=== PATIENT | male | born 1945 | race Caucasian/White ===

== ENCOUNTER 2023-04-12 10:58 | Outpatient (OUT) | payer MEDICARE, OTHER, SELFPAY ==
[2023-04-12 11:37] LABS: Hemoglobin 15.2 g/dL (14.0-18.0)
[2023-04-12 12:01] LABS: Anion Gap 9.6; BUN Creatinine Ratio 23.9; Calcium 9.3 mg/dL (8.5-10.1); Carbon Dioxide 29.6 mmol/L (21.0-32.0); Chloride 101 mmol/L (98-107); Estimated GFR (African America >60 (>=60); Estimated GFR (Non-African Ame >60 (>=60); Glucose 108 mg/dL (74-106); Potassium 4.2 mmol/L (3.5-5.1); Sodium 136 mmol/L (136-145)
== END 2023-04-12 10:59 ==
PROVIDERS: PCP Family Medicine; Visit Provider Internal Medicine Nephrology
DX: N17.9 Acute kidney failure, unspecified (principal)
CPT/HCPCS: 36415; 80048; 85014; 85018

== ENCOUNTER 2023-05-03 14:14 | Outpatient (OUT) | payer MEDICARE, OTHER, SELFPAY ==
--- NOTE | 2023-05-03 13:46 | PM.CN ---
Consult Note: HPI Data of Consult Patient: known to practice within the last 3 years Consult date: 05/03/23 Requesting Physician: BOSTON DUDLEY NP Primary Care Provider: Jorge Ortez MD Consult Narrative Narrative: Patient is here for f/u of low back pain . Pain is low back rdaiting to buttocks. He also has diabetic neuropathy. No increase in pain. Pain 2/10 today. He has decreased his tramadol dose. No new sensorimotor sx or bowel or bladder issues. Medication regimen is controlling pain and assisting patient with ability to perform ADLs. He was only taking his lyrica once daily and was not sure what it was for. We discussed lyrica dosage and indications. He will start taking it BID now. cc:: CC: BOSTON DUDLEY NP Review of Systems ROS Status of ROS 10 or more systems reviewed and unremarkable except as noted in history and below Musculoskeletal Reports: back pain Exam Constitutional Documenting provider has reviewed patient's vital signs: yes Common normals: no apparent distress, oriented x3, healthy appearing, alert and well nourished General appearance: cooperative, comfortable and well developed Nutritional appearance: obese Orientation/consciousness: Yes awake, Yes oriented to person, Yes oriented to place and Yes oriented to time HENMT Common normals: normocephalic and moist oral mucous membranes Respiratory Common normals: normal respiratory effort, no retractions and no use of accessory muscles Effort & inspection: able to speak in complete sentences, symmetric chest movement and abnormal respiratory pattern Back & Pelvis Lumbar spine/lower back: ROM limited and pain with ROM Other: positive facet load muscle strength 4/5 bilat with intact sensation except numbness to bilat feet L>R Assessment and Plan Assessment and Plan (1) Lumbar spondylosis: (2) Lumbar stenosis: Plan take lyrica as prescribe BID f/u 3 months
== END 2023-05-03 14:15 | disposition home or self-care (01) ==
LOC: PM 14:15
PROVIDERS: PCP Family Medicine; Visit Provider Nurse Practitioner
DX: M47.816 Spondylosis without myelopathy or radiculopathy, lumbar region (principal); M48.061 Spinal stenosis, lumbar region without neurogenic claudication; M54.50 Low back pain, unspecified
CPT/HCPCS: G0463

== ENCOUNTER 2023-08-02 13:07 | Outpatient (OUT) | payer MEDICARE, OTHER, SELFPAY ==
--- NOTE | 2023-08-02 13:17 | PM.CN ---
Consult Note: HPI Data of Consult Patient: known to practice within the last 3 years Requesting Physician: BOSTON DUDLEY NP Primary Care Provider: Jorge Ortez MD Consult Narrative Reason for consult: f/u Narrative: Eleuterio Cabral a pleasant 77 year old male presents for evaluation and management of chronic pain in low back buttocks and groin. Today rating pain 3-4/10. Patient has been doing well on tramadol and lyrica, without side effects. cc:: CC: BOSTON DUDLEY NP Review of Systems ROS Status of ROS 10 or more systems reviewed and unremarkable except as noted in history and below Musculoskeletal Reports: back pain and other Meds Home Medications and Allergies Home Medications Medication Instructions Recorded Confirmed Type furosemide 40 mg tablet 40 mg PO DAILY 05/03/23 05/03/23 History levothyroxine 150 mcg capsule 150 mcg PO DAILY 05/03/23 05/03/23 History pregabalin 75 mg capsule (Lyrica) 75 mg PO BID 05/03/23 05/03/23 History rivaroxaban 20 mg tablet (Xarelto) 20 mg PO DAILY 05/03/23 05/03/23 History spironolactone 25 mg tablet 25 mg PO BID 05/03/23 05/03/23 History tramadol 50 mg tablet 50 mg PO BID 05/03/23 05/03/23 History Allergies Allergy/AdvReac Type Severity Reaction Status Date / Time No Known Drug Allergies Allergy Verified 05/03/23 15:29 Exam Constitutional Documenting provider has reviewed patient's vital signs: yes Common normals: no apparent distress, oriented x3, healthy appearing, alert and well nourished General appearance: cooperative Nutritional appearance: obese HENMT Common normals: normocephalic, hearing grossly normal bilaterally and moist oral mucous membranes Head and scalp: normocephalic Eye Common normals: PERRL Pupil: PERRL Neck & C-Spine Common normals: full ROM General: normal visual inspection Chest Common normals: inspection of chest normal Respiratory Common normals: normal respiratory effort, no retractions and no use of accessory muscles Back & Pelvis Lumbar spine/lower back: ROM limited and pain with ROM Neuro Common normals: oriented x3, CN's II-XII intact bilaterally, moves all extremities, no focal motor deficits, no sensory deficits noted and deep tendon reflexes 2+ bilaterally Sensorium/orientation: alert Gait (neuro): antalgic and assistive device used walker Motor exam: strength 5/5 throughout and no movement abnormalities noted Psych Common normals: mental status grossly normal, thought process normal, cooperative, affect normal, speech normal and activity/motor behavior normal Speech: normal speech Thought process: normal thought process Results Additional Findings Additional findings: I have checked an [place] report on this patient today and there are no aberrancies noted in the prescribing history.?? A drug screen was completed and reviewed within the last year, and if there has not been a drug screen completed we ordered one today to monitor higher risk, state monitored pain medication use. As part of providing excellent, safe, comprehensive care, the following was completed at our patient's visit: 1. A medication reconciliation and review to ensure accurate knowledge of current/active medications, including asking our patients to inform us about any [id number] medications or herbal remedies/nutritional supplements/alternative remedies. 2. A review to specifically ensure our patients have had annual screening for: elevated body mass index (BMI), tobacco use, screening for depression, and screening for unhealthy alcohol use. When screening is concerning, patients are provided with education and the specific recommendation to discuss the concerning health issue and treatment options with their primary care provider. Assessment and Plan Assessment and Plan (1) Chronic, continuous use of opioids: Assessment and Plan: I feel these medications are improving the patient's quality of life and allow them to tolerate activities of daily living as well as participate in recreational activity.? The patient does not report intolerable side effects. The patient is NOT opioid naive and non-pharmacologic and non-opioid treatment has failed to significantly relieve the patient's pain and improve functionality. The patient has a diagnosis that is related to a somatic or visceral pain etiology. ? ?? I reviewed with the patient the potential risks and side effects with the use of? opioid medications including but not limited to respiratory depression,? sedation, and even . I verified the patient has access to naloxone should? these effects occur. I advised the patient to avoid the use of any other? sedation substances including alcohol, THC, and benzodiazepines while? taking opioid medications due to the risk of compounding side effects and? detrimental outcomes. I reviewed the SEAL DELIVERY VEHICLE OFFICER, pain treatment agreement, urine? drug screen, and opioid start talking forms. The patient was advised to let? their family know they had Naloxone in case they would need to administer? the medication.? ?? (2) Lumbar spondylosis: (3) Lumbar stenosis: (4) Obesity: Assessment and Plan: The patient was counseled that proper dietary changes and consistent participation in a home exercise plan can lead to weight loss. Weight loss can help to improve functionality in patients with chronic pain.? Plan continue current medications, tolerating well without side effects continues to have functional improvement and pain relief as a result of injection therapy and medication management f/u 3 months
== END 2023-08-02 13:08 | disposition home or self-care (01) ==
PROVIDERS: PCP Family Medicine; Visit Provider Nurse Practitioner
DX: M47.816 Spondylosis without myelopathy or radiculopathy, lumbar region (principal); M48.061 Spinal stenosis, lumbar region without neurogenic claudication; E66.9 Obesity, unspecified; Z79.899 Other long term (current) drug therapy
CPT/HCPCS: G0463

== ENCOUNTER 2023-11-01 12:55 | Outpatient (OUT) | payer MEDICARE, OTHER, SELFPAY ==
--- NOTE | 2023-11-01 13:13 | PM.CN ---
Consult Note: HPI Data of Consult Patient: known to practice within the last 3 years Requesting Physician: Althea Haeny NP Primary Care Provider: Jorge Ortez MD Consult Narrative Reason for consult: f/u Narrative: Eleuterio Cabral a pleasant 77 year old male presents for evaluation and management of chronic pain in low back buttocks and groin. Today rating pain 2/10. Patient has been doing well on tramadol and lyrica, without side effects. cc:: CC: Althea Haney NP Review of Systems ROS Status of ROS 10 or more systems reviewed and unremarkable except as noted in history and below Musculoskeletal Reports: back pain and extremity pain Meds Home Medications and Allergies Home Medications Medication Instructions Recorded Confirmed Type furosemide 40 mg tablet 40 mg PO DAILY 05/03/23 05/03/23 History levothyroxine 150 mcg capsule 150 mcg PO DAILY 05/03/23 05/03/23 History pregabalin 75 mg capsule (Lyrica) 75 mg PO BID 05/03/23 05/03/23 History rivaroxaban 20 mg tablet (Xarelto) 20 mg PO DAILY 05/03/23 05/03/23 History spironolactone 25 mg tablet 25 mg PO BID 05/03/23 05/03/23 History tramadol 50 mg tablet 50 mg PO BID 05/03/23 05/03/23 History tramadol 50 mg tablet 100 mg (2 x 50 mg) PO BID PRN pain 08/27/23 Rx #120 tabs Allergies Allergy/AdvReac Type Severity Reaction Status Date / Time No Known Drug Allergies Allergy Verified 05/03/23 15:29 Exam Constitutional Documenting provider has reviewed patient's vital signs: yes Common normals: no apparent distress, oriented x3, healthy appearing, alert and well nourished General appearance: cooperative Nutritional appearance: obese HENMT Common normals: normocephalic, hearing grossly normal bilaterally and moist oral mucous membranes Head and scalp: normocephalic Eye Common normals: PERRL Pupil: PERRL Neck & C-Spine Common normals: full ROM General: normal visual inspection Chest Common normals: inspection of chest normal Respiratory Common normals: normal respiratory effort, no retractions and no use of accessory muscles Back & Pelvis Lumbar spine/lower back: ROM limited and pain with ROM Extremity Common normals: normal to inspection Neuro Common normals: oriented x3, CN's II-XII intact bilaterally, moves all extremities, no focal motor deficits, no sensory deficits noted and deep tendon reflexes 2+ bilaterally Sensorium/orientation: alert Gait (neuro): antalgic and assistive device used walker Motor exam: no movement abnormalities noted and strength abnormal (4/5 in LLE) Psych Common normals: mental status grossly normal, thought process normal, cooperative, affect normal, speech normal and activity/motor behavior normal Speech: normal speech Thought process: normal thought process Results Additional Findings Additional findings: I have checked an [facility] report on this patient today and there are no aberrancies noted in the prescribing history.?? A drug screen was completed and reviewed within the last year, and if there has not been a drug screen completed we ordered one today to monitor higher risk, state monitored pain medication use. As part of providing excellent, safe, comprehensive care, the following was completed at our patient's visit: 1. A medication reconciliation and review to ensure accurate knowledge of current/active medications, including asking our patients to inform us about any [id number] medications or herbal remedies/nutritional supplements/alternative remedies. 2. A review to specifically ensure our patients have had annual screening for: elevated body mass index (BMI), tobacco use, screening for depression, and screening for unhealthy alcohol use. When screening is concerning, patients are provided with education and the specific recommendation to discuss the concerning health issue and treatment options with their primary care provider. Assessment and Plan Assessment and Plan (1) Chronic, continuous use of opioids: Assessment and Plan: I feel these medications are improving the patient's quality of life and allow them to tolerate activities of daily living as well as participate in recreational activity.? The patient does not report intolerable side effects. The patient is NOT opioid naive and non-pharmacologic and non-opioid treatment has failed to significantly relieve the patient's pain and improve functionality. The patient has a diagnosis that is related to a somatic or visceral pain etiology. ? ?? I reviewed with the patient the potential risks and side effects with the use of? opioid medications including but not limited to respiratory depression,? sedation, and even . I verified the patient has access to naloxone should? these effects occur. I advised the patient to avoid the use of any other? sedation substances including alcohol, THC, and benzodiazepines while? taking opioid medications due to the risk of compounding side effects and? detrimental outcomes. I reviewed the BROADCAST CORRESPONDENT, pain treatment agreement, urine? drug screen, and opioid start talking forms. The patient was advised to let? their family know they had Naloxone in case they would need to administer? the medication.? ?? (2) Lumbar spondylosis: (3) Lumbar stenosis: (4) Obesity: Assessment and Plan: The patient was counseled that proper dietary changes and consistent participation in a home exercise plan can lead to weight loss. Weight loss can help to improve functionality in patients with chronic pain.? Plan continue current medications, tolerating well without side effects continues to have functional improvement and pain relief as a result of injection therapy and medication management f/u 3 months, sooner if needed
== END 2023-11-01 12:56 | disposition home or self-care (01) ==
LOC: PM 12:55
PROVIDERS: PCP Family Medicine; Visit Provider Nurse Practitioner
DX: Z79.891 Long term (current) use of opiate analgesic (principal); M47.816 Spondylosis without myelopathy or radiculopathy, lumbar region; M48.061 Spinal stenosis, lumbar region without neurogenic claudication; E66.9 Obesity, unspecified
CPT/HCPCS: G0463

== ENCOUNTER 2023-11-26 14:40 | Outpatient (OUT) | payer MEDICARE, OTHER, SELFPAY ==
--- OUTSIDE RECORDS SUMMARY | 2023-11-26 14:46 | XMS_ITS | CCD ---
Author Name Unknown Address [address] [place] [address] Organization [facility] Care Team Providers Care Statistical Machine Servicer Name Role Phone PHYSICIAN, DEFAULT Unavailable Unavailable PHYSICIAN, DEFAULT Unavailable Unavailable Jorge Camejo Unavailable Unavailable Unavailable Oscar Walters Unavailable Patel Ugarte Admitting Unavailable Eleuterio Napier Attending Unavailab Jorge Casillas Primary Care Unavailable Josiane Syeks Consulting Unavailable Beth Treviño Consulting Unavailable Rojas Rivas Consulting Unavailable Jorge Portillo Consulting Unavail able Lauren Cortez Consulting Unavailable Ranjit Mckeon Consulting Unavailab Yuliya Valdes Consulting Unavailable Verena Morton Consulting Unavailable Ana Paula Lee Consulting Unavailab Rody Hansen Consulting Unavailable Oscar Walters Consulting Unavailable Gina Cherry Consulting Unavailable Bryant Cooper Consulting Unavailable Phil Sutton Consulting Unavailable Wolfgang Mclean Consulting Unavailable Sekou Green Consulting Unavailable Unavailable Unavailable Jorge Treviño Attending Unavailable Dr. Jorge Camejo Primary Care Adamaris Camejo, Dr. Jorge Hurtado Primary Care Jorge Conner Referring Unavailable Jorge Treviño Attending Unavailable Neelima, Dr. Jorge Hurtado Primary Care Jorge Conner Referring Unavailable Jorge Treviño Attending Unavailable Neelima, Dr. Jorge Hurtado Primary Care Jorge Conner Attending Unavailable Neelima, Dr. Jorge Hurtado Primary Care Unavai lable NADLIZBETH, DR JORGE Masters Primary Care Unavailable LAKSHMIPATHY ., NARENDRANATH Admitting Sydney vailable LAKSHMIPATHY ., NARENDRANATH Consulting Sydney vailable LAKSHMIPATHY ., NARSHIRA Attending Sydney vailable NADLIZBETH, DR JORGE Masters Primary Care Unavailable MCLEAN ., DR HUNTER Gagnon Attending Unavailable MCLEAN ., DR HUNTER Gagnon Admitting Unavailable SANCHEZ ., DOMO Consulting Unavailable LAKSHMIPATHY ., NARSHIRA Admitting Sydney vailable LAKSHMIPATHY ., JAVIER Attending Sydney vailable NADLIZBETH, DR JORGE Masters Primary Care Unavailable MCLEAN ., DR HUNTER Gagnon Attending Unavailable SANCHEZ ., DOMO Consulting Unavailable MCLEAN ., DR HUNTER Gagnon Admitting Unavailable NADERER, DR JORGE Masters Primary Care Unavailable NADERER, DR JORGE Masters Primary Care Unavailable NADERER, DR JORGE Masters Attending Unavailable SPANGLER, DR ANETTE Torrez Consulting Unavailable NADERER, DR JORGE Masters Admitting Unavailable NADERER, DR JORGE Masters Consulting Unavailable NADERER, DR JORGE Masters Primary Care Unavailable NADERER, DR JORGE Masters Consulting Unavailable NADERER, DR JORGE Masters Attending Unavailable NADERER, DR JORGE Masters Admitting Unavailable NADERER, DR JORGE Masters Primary Care Unavailable ELASHI, DR LUU Consulting Unavailable ELASHI, DR LUU Attending Unavailable ELASHI, DR LUU Admitting Unavailable KAMILA, DR JORGE Gagnon Consulting Unavailabl e KAMILA, DR JORGE Gagnon Attending Unavailabl e NADERER, DR JORGE Masters Primary Care Unavailable KAMILA, DR JORGE Gagnon Admitting Unavailabl e NADERER, DR JORGE Masters Primary Care Unavailable NADERER, DR JOGRE Masters Consulting Unavailable NADERER, DR JORGE Masters Attending Unavailable NADERER, DR JORGE Masters Admitting Unavailable REINECK, DR LISA Badillo Admitting Unavailabl e REINECK, DR LISA Badillo Consulting Unavailabl e NADERER, DR JORGE Masters Primary Care Unavailable REINECK, DR LISA Badillo Attending Unavailabl e ZIEBER, DR LAYO Davis Consulting Unavailable PAY ., DR BENNETT Consulting Unavailable TROTTI, TONY Consulting Unavailable MCLEAN ., DR HUNTER Gagnon Admitting Unavailable MCLEAN ., DR HUNTER Gagnon Attending Unavailable SANCHEZ ., DOMO Consulting Unavailable NADERER, DR JORGE Masters Primary Care Unavailable MCLEAN ., DR HUNTER Gagnon Admitting Unavailable MCLEAN ., DR HUNTER Gagnon Attending Unavailable SANCHEZ ., DOMO Consulting Unavailable DR JORGE CAMEJO Primary Care Unavailable JR. GRAHAM, MARIE Rodriguez Attending Adriel STEVENSON JR., MARIE Rodriguez Attending Adriel proctor Medications Current Medications Medication Drug Class(es) Dates Sig (Normalized) Sig (Original) furosemide 40 mg oral tablet (6 sources) Loop Diuretic take 1 tablet by mouth every twenty-four hours Furosemide 40 MG 1 tablet Orally Once a day Active levothyroxine sodium 0.15 mg oral tablet (6 sources) l-Thyroxine take 1 tablet by mouth once daily in the morning Levothyroxine Sodium 150 MCG 1 tablet in the morning on an empty stomach Orally Once a day Active take 1 tablet by mouth once jesenia y Synthroid 150 MCG Oral Tablet TAKE 1 TABLET DAILY. Quantity: 0 Refills: 0 Ordered: 12-Jul-2022 DO Active rivaroxaban 20 mg oral tablet (6 sources) Factor Xa Inhibitor take 1 tablet by mouth every twenty-four hours Xarelto 20 MG 1 tablet with food Orally Once a day Active traMADol hydrochloride 50 mg oral tablet (6 sources) Opioid Agonist take 2 tablets by mouth every twelve hours traMADol HCl 50 MG 2 tablet as needed Orally TWICE A DAY Active Completed/Discontinued Medications Medication Drug Class(es) Dates Sig (Normalized) Sig (Original) [id number] 200 actuat albuterol 0.09 mg/actuat metered dose inhaler (1 source) beta2-Adrenergic Agonist Start: 12-08-2022 take 2 puff(s) by mouth every four hours as needed Albuterol Sulfate HFA 108 (90 Base) MCG/ACT Inhalation Aerosol Solution TAKE 2 PUFFS BY MOUTH EVERY 4 HOURS NEEDED Quantity: 18 Refills: 0 Ordered: 08-Dec-2022 DO Start : 08-Dec-2022 Active pregabalin 75 mg oral capsule (5 sources) Start: 11-01-2022 take 1 capsule by mouth twice daily Pregabalin 75 MG Oral Capsule TAKE 1 CAPSULE BY MOUTH TWICE A DAY Quantity: 60 Refills: 0 Ordered: 03-Dec-2022 DO Start : 01-Nov-2022 Active spironolactone 25 mg oral tablet (5 sources) Aldosterone Antagonist Start: 11-27-2022 take 1 tablet by mouth once daily Spironolactone 25 MG Oral Tablet TAKE 1 TABLET DAILY. Quantity: 30 Refills: 0 Ordered: 27-Nov-2022 DO Start : 27-Nov-2022 Active Start: 08-31-2022 take 1 tablet by anisa th every twenty-four hours Spironolactone 25 MG 1 tablet Orally Once a day for 90 day(s) Aug, Active Xarelto Starter Pack TBPK (1 source) Xarelto Starter Pack TBPK as directed Quantity: 0 Refills: 0 Ordered: 12-Jul-2022 DO Active Problems Active Problems Problem Classification Problem Date Documented Da te Episodic/Chronic Chronic kidney disease (7 sources) Chronic kidney disease; Translations: [Chronic kidney disease, unspecified] Onset: 07-17-2022 Chronic Chronic kidney disease (6 sources) Chronic kidney disease; Translations: [CHRONIC KIDNEY DISEASE STAGE 3B] Onset: 10-03-2022 Congestive heart failure; nonhypertensive (8 sources) Congestive heart failure; Translations: [Heart failure, unspecified] Onset: 06-23-2022 Chronic Disorders of lipid metabolism (1 source) Hyperlipidemia, unspecified; Translations: [HYPERLIPIDEMIA UNSPECIFIED] Onset: 04-12-2022 Chronic Essential hypertension (5 sources) Essential (primary) hypertension; Translations: [Essential (primary) hypertension] Onset: 04-05-2022 Chronic Hypertension with complications and secondary hypertension (7 sources) Malignant hypertensive chronic kidney disease; Translations: [Hypertensive chronic kidney disease with stage 1 through stage 4 chronic kidney disease, or unspecified chronic kidney disease] Onset: 06-26-2022 Chronic Other and ill-defined heart disease (1 source) Cardiomegaly; Translations: [Cardiomegaly] Onset: 06-23-2022 Chronic Other infections; including parasitic (2 sources) Personal history of other infectious and parasitic diseases; Translations: [History of COVID-19] Episodic Other lower respiratory disease (4 sources) Shortness of breath; Translations: [SHORTNESS OF BREATH] Onset: 12-07-2022 Episodic Other nervous system disorders (1 source) Other chronic pain; Translations: [OTHER CHRONIC PAIN] Onset: 01-28-2023 Chronic Other nervous system disorders (1 source) Other specified mononeuropathies; Translations: [OTHER SPECIFIED MONONEUROPATHIES] Onset: 10-10-2022 Chronic Other nutritional; endocrine; and metabolic disorders (2 sources) Body mass index 40+ - severely obese; Translations: [Morbid obesity] Chronic Other nutritional; endocrine; and metabolic disorders (2 sources) Obesity, unspecified; Translations: [Obesity, unspecified] Onset: 06-23-2022 Chronic Other nutritional; endocrine; and metabolic disorders (1 source) Morbid (severe) obesity due to excess calories; Translations: [MORBID SEVERE OBES D/T EXCESS LIVAN] Onset: 07-17-2022 Chronic Other nutritional; endocrine; and metabolic disorders (1 source) Body mass index (BMI) 45.0-49.9, adult; Translations: [BODY MASS INDEX BMI 45.0-49.9 ADULT] Onset: 06-26-2022 Chronic Residual codes; unclassified (1 source) Sleep apnea, unspecified; Translations: [SLEEP APNEA UNSPECIFIED] Onset: 06-26-2022 Chronic Residual codes; unclassified (1 source) Edema; Translations: [Edema] Episodic Screening and history of mental health and substance abuse codes (1 source) Ex-smoker; Translations: [Personal history of tobacco use] Episodic Spondylosis; intervertebral disc disorders; other back problems (10 sources) Spinal stenosis, lumbar region without neurogenic claudication; Translations: [Intervertebral disc disorders with radiculopathy, lumbar region] Onset: 02-16-2022 Episodic Thyroid disorders (2 sources) Hypothyroidism, unspecified; Translations: [Hypothyroidism, unspecified] Onset: 06-23-2022 Chronic Unclassified (4 sources) LOW BACK PAIN, UNSPECIFIED; Translations: [LOW BACK PAIN, UNSPECIFIED] Onset: 10-10-2022 Unclassified (1 source) PERSONAL HISTORY OF COVID-19; Translations: [PERSONAL HISTORY OF COVID-19] Onset: 07-17-2022 Unclassified (1 source) POST COVID-19 CONDITION UNSPECIFIED; Translations: [POST COVID-19 CONDITION UNSPECIFIED] Onset: 06-26-2022 Unclassified (1 source) CONTACT W/AND (SUSP) EXPOS COVID-19; Translations: [CONTACT W/AND (SUSP) EXPOS COVID-19] Onset: 06-26-2022 Viral infection (1 source) COVID-19; Translations: [COVID-19] Onset: 06-23-2022 Past or Other Problems Problem Classification Problem Date Documented Da te Episodic/Chronic Abdominal pain (4 sources) Right lower quadrant pain; Translations: [RIGHT LOWER QUADRANT PAIN] Onset: 02-24-2022 Episodic Acute and unspecified renal failure (3 sources) Acute kidney failure, unspecified; Translations: [Acute kidney failure, unspecified] Onset: 06-23-2022 Episodic Diabetes mellitus without complication (1 source) Prediabetes; Translations: [PREDIABETES] Onset: 04-12-2022 Episodic Other aftercare (1 source) Other longterm (current) drug therapy; Translations: [OTH NURSING HOME CURRENT DRUG THERAPY] Onset: 06-26-2022 Episodic Other hematologic conditions (1 source) Other specified abnormalities of plasma proteins; Translations: [Other specified abnormalities of plasma proteins] Onset: 06-23-2022 Episodic Other screening for suspected conditions (not mental disorders or infectious disease) (2 sources) Other specified abnormal findings of blood chemistry; Translations: [Encounter for screening for malignant neoplasm of prostate] Onset: 04-12-2022 Episodic Phlebitis; thrombophlebitis and thromboembolism (8 sources) Deep venous thrombosis; Translations: [Acute venous embolism and thrombosis of unspecified deep vessels of lower extremity] Onset: 06-23-2022 Episodic Pulmonary heart disease (9 sources) Pulmonary embolism; Translations: [Other pulmonary embolism and infarction] Onset: 06-23-2022 Episodic Unclassified (1 source) LOW BACK PAIN, UNSPECIFIED; Translations: [LOW BACK PAIN, UNSPECIFIED] Onset: 01-25-2023 Results Test Name Value Interpretation Reference Range Facility Office Visit (Cardiology)on 01-04-2023 Follow-up visit Diagnoses/Problems Assessed DVT (deep venous thrombosis) (453.40) (I82.409) Pulmonary embolism (415.19) (I26.99) History of COVID-19 (V12.09) (Z86.16) Chronic kidney disease (585.9) (N18.9) Former smoker (V15.82) (Z87.891) Morbid obesity with BMI of 45.0-49.9, adult (278.01,V85.42) (E66.01,Z68.42) Edema (782.3) (R60.9) Orders SocHx: Former smoker Tobacco Use Screening; Status:Complete; Done: 04Jan2023 Patient Instructions Please bring all medicines, vitamins, and herbal supplements with you when you come to the office. Prescriptions will not be filled unless you are compliant with your follow up appointments or have a follow up appointment scheduled as per instruction of your physician. Refills should be requested at the time of your visit. Follow up in 1 year. Chief Complaint ELEUTERIO CABRAL is being seen for a 6 month follow-up of. 77-year-old gentleman who returns for 6-month follow-up, continues on Antithrombin therapies for treatment of DVT and suspected pulmonary embolism following COVID illness in June 2022. He underwent perfusion scan he did not undergo any CT angiography due to chronic renal insufficiency. Last office visit in July 2022, in addition to his blood work and hospitalization notes and imaging reports are all reviewed. Notably he did not proceed with CT angiography last year after my office visit. He remains sedentary, ambulatory by means of rollator, morbidly obese currently 355 pounds with a BMI of 49.5, hemodynamically stable. Today's exam reveals mild 1-2+ ankle edema only. He does have chronic renal failure and follows with Dr. Escobedo. He remains on Xarelto therapy with no recurrent thromboembolic and no bleeding events or recurrent hospitalizations Long discussion in regards to duration of therapy for DVT/suspected PE and I have recommended a minimum of 1 year of DOAC therapy, consideration for lifelong therapy given his comorbidities of sedentary lifestyle, morbid obesity however he may want to corroborate this with second opinion with hematology/oncology or even vascular surgery. But at least he should have a years worth of DOAC. He can otherwise follow-up in 1 year Surgical History Problems History of Colonoscopy Resolved Date: 05 Nov 2016 History of Knee arthroscopy History of Thrombectomy Current Meds Medication NameInstruction Albuterol Sulfate HFA 108 (90 Base) MCG/ACT Inhalation Aerosol SolutionTAKE 2 PUFFS BY MOUTH EVERY 4 HOURS NEEDED Furosemide 40 MG Oral TabletTAKE 1 TABLET DAILY. Pregabalin 75 MG Oral CapsuleTAKE 1 CAPSULE BY MOUTH TWICE A DAY Spironolactone 25 MG Oral TabletTAKE 1 TABLET DAILY. Synthroid 150 MCG Oral TabletTAKE 1 TABLET DAILY. traMADol HCl - 50 MG Oral TabletTAKE 2 TABLET Twice daily Xarelto 20 MG Oral TabletTake 1 tablet daily Allergies Medication No Known Drug Allergies Recorded By: Nancy Sin; 07/12/2022 11:35:27 AM Social History Problems Denied: History of Caffeine use Former smoker (V15.82) (Z87.891) No alcohol use No illicit drug use Review of Systems Constitutional: not feeling tired. Cardiovascular: no intermittent leg claudication and as noted in HPI. Respiratory: no cough and no shortness of breath. Gastrointestinal: no change in bowel habits and no blood in stools. Integumentary: no skin rashes. Neurological: no seizures and no frequent falls. All other systems have been reviewed and are negative for complaint. Vitals Vital Signs Recorded: 04Jan2023 11:33AM Heart Rate64, L Radial Hatedwof364, LUE, Sitting Umlhhygcq75, LUE, Sitting Height5 ft 11 in Kzjibl524 lb BMI Ldctjlfdgv31.51 kg/m2 BSA Calculated2.69 Tobacco Useb) No PHQ-2 #1. Over the last 2 weeks have you felt down, depressed or hopeless? (If yes, answer PHQ-9 below)No PHQ-2 #2. Over the last 2 weeks have you felt little interest or pleasure in doing things? (If yes, answer PHQ-9 below)No Falls Screening (Age 18+)a) No falls within the last year Physical Exam Constitutional: alert and in no acute distress. Neck: neck is supple, symmetric, trachea midline, no masses and no thyromegaly . Pulmonary: no increased work of breathing or signs of respiratory distress and lungs clear to auscultation. Cardiovascular: carotid pulses 2+ bilaterally with no bruit , JVP was normal, no thrills , regular rhythm, normal S1 and S2, no murmurs , pedal pulses 2+ bilaterally and bilateral ankle 1+ pitting edema. Abdomen: abdomen non-tender, no masses and no hepatomegaly . Skin: skin warm and dry, normal skin turgor . Psychiatric judgment and insight is normal and oriented to person, place and time . Signatures Electronically signed by : Jorge Treviño DO; Jan 04 2023 12:41PM EST (Author) Normal [employer] Tobacco Screening.on 023 Adult depression screening assessment No [facility] [facility] DO Work Phone: Fall risk assessment a) No falls within the last year [facility] [facility] DO Work Phone: Tobacco use status CP b) [facility] [facility] Work Phone: FREE T3on 12-07-2022 FREE T3 2.63 pg/mlL Normal 2.18-3.98 [facility] Comment on above: Performed By: #### T SH, FT3 #### [facility] [address] [place] [address] Dr. Cole Echeverria FREE T4on 12-07-2022 Free T4 [Mass/Vol] 1.44 ng/dL Normal 0.76-1.46 [facility] Comment on above: Performed By: #### T SH, FT3 #### [facility] [address] [place] [address] Dr. Cole Echeverria HEMOGLOBINon 12-07-2022 Hemoglobin (Bld) [Mass/Vol] 14.0 g/dL Normal 14.0-18.0 [facility] Comment on above: Performed By: #### F T4, PSASC #### [facility] [address] [place] [address] Dr. Cole Echeverria TSHon 12-07-2022 TSH 0.710 uIU/mL Normal 0.358-3.740 [facility] Comment on above: Performed By: #### T SH, FT3 #### [facility] [address] [place] [address] Dr. Cole Echeverria PTH INTACTon 10-04-2022 PTH, Intact 13 pg/mL Critically low 15-65 [facility] Comment on above: Performed By: #### P THINT #### [facility] [address] [place] [address] Dr. Cole Echeverria HEMOGRAM AND PLATELon 2021 Hematocrit (Bld) [Volume fraction] 44.9 % Normal 42.0-54.0 [facility] Comment on above: Performed By: #### F T4, PSASC #### [facility] [address] [place] [address] Dr. Cole Echeverria Hemoglobin (Bld) [Mass/Vol] 14.4 g/dL Normal 14.0-18.0 [facility] Comment on above: Performed By: #### F T4, PSASC #### [facility] [address] [address] [address] Cole Echeverria MCH (RBC) [Entitic mass] 27.0 pg Normal 25.9-34.[address] [facility] Comment on above: Performed By: #### F T4, PSASC #### [facility] [address] [place] [address] Dr. Cole Echeverria MCHC (RBC) [Mass/Vol] 32.1 g/dL Normal 29.9-35.[address] [facility] Comment on above: Performed By: #### F T4, PSASC #### [facility] [address] [place] [address] Dr. Cole Echeverria MCV (RBC) [Entitic vol] 84.1 fL Normal 80.0-94.0 [facility] Comment on above: Performed By: #### F T4, PSASC #### [facility] [address] [place] [address] Dr. Cole Echeverria PLT 330 103/ul Normal 150-[address] [facility] Comment on above: Performed By: #### F T4, PSASC #### [facility] [address] [place] [address] Dr. Cole Echeverria RBC 5.34 106/ul Normal 4.70-6.[address] [facility] Comment on above: Performed By: #### F T4, PSASC #### [facility] [address] [place] [address] Dr. Cole Echeverria WBC 8.7 103/ul Normal 4.0-11.[address] [facility] Comment on above: Performed By: #### F T4, PSASC #### [facility] [address] [place] [address] Dr. Cole Echeverria PHOSPHORUSon 10-03-2022 Phosphate [Mass/Vol] 3.8 mg/dL Normal 2.6-4.[address] [facility] Comment on above: Performed By: #### T SH, FT3 #### [facility] [address] [place] [address] Dr. Cole Echeverria PROF 14(COMP METB)on 022 Albumin [Mass/Vol] 3.1 g/dL Critically low 3.4-5.[address] [facility] Comment on above: Performed By: #### T SH, FT3 #### [facility] [address] [place] [address] Dr. Cole Echeverria Albumin/Globulin [Mass ratio] 0.6 {ratio} Normal [facility] Comment on above: Performed By: #### T SH, FT3 #### [facility] [address] [place] [address] Dr. Cole Echeverria ALP [Catalytic activity/Vol] 94 U/L Normal 46-116 [facility] Comment on above: Performed By: #### T SH, FT3 #### [facility] [address] [place] [address] Dr. Cole Echeverria ALT [Catalytic activity/Vol] 11 U/L Critically low 16-63 [facility] Comment on above: Performed By: #### T SOPHIE, FT3 #### [facility] [address] [place] [address] Dr. Cole Echeverria Anion gap [Moles/Vol] 9.3 mmol/L Normal [facility] Comment on above: Performed By: #### T SOPHIE, FT3 #### [facility] [address] [place] [address] Dr. Cole Echeverria AST [Catalytic activity/Vol] 13 U/L Critically low 15-37 [facility] Comment on above: Performed By: #### T SH, FT3 #### [facility] [address] [place] [address] Dr. Cole Echeverria Bilirubin [Mass/Vol] 0.5 mg/dL Normal 0.2-1.0 [facility] Comment on above: Performed By: #### T SH, FT3 #### [facility] [address] [place] [address] Dr. Cole Echeverria Calcium [Mass/Vol] 9.6 mg/dL Normal 8.5-10.1 [facility] Comment on above: Performed By: #### T SH, FT3 #### [facility] [address] [place] [address] Dr. Cole Ecehverria Chloride [Moles/Vol] 101 mmol/L Normal 98-107 [facility] Comment on above: Performed By: #### T SH, FT3 #### [facility] [address] [place] [address] Dr. Cole Echeverria CO2 [Moles/Vol] 31.6 mmol/L Normal 21.0-32.0 [facility] Comment on above: Performed By: #### T SH, FT3 #### [facility] [address] [place] [address] Dr. Cole Echeverria Creatinine [Mass/Vol] 1.13 mg/dL Normal 0.70-1.30 [facility] Comment on above: Performed By: #### T SH, FT3 #### [facility] [address] [place] [address] Dr. Cole Echeverria EGFR-AF MONEGASQUE >60 Normal >=60 [facility] Comment on above: Performed By: #### T SH, FT3 #### [facility] [address] [place] [address] Dr. Cole Echeverria EGFR-NON AF MONEGASQUE >60 Normal >=60 [facility] Comment on above: Performed By: #### T SH, FT3 #### [facility] [address] [place] [address] Dr. Cole Echeverria Globulin (S) [Mass/Vol] 5.0 g/dL Normal [facility] Comment on above: Performed By: #### T SH, FT3 #### [facility] [address] [place] [address] Dr. Cole Echeverria Glucose [Mass/Vol] 104 mg/dL Normal 74-106 [facility] Comment on above: Performed By: #### T SH, FT3 #### [facility] [address] [place] [address] Dr. Cole Echeverria Potassium [Moles/Vol] 3.9 mmol/L Normal 3.5-5.1 [facility] Comment on above: Performed By: #### T SH, FT3 #### [facility] [address] [place] [address] Dr. Cole Echeverria Protein [Mass/Vol] 8.1 g/dL Normal 6.4-8.2 [facility] Comment on above: Performed By: #### T SOPHIE, FT3 #### [facility] [address] [place] [address] Dr. Cole Echeverria Sodium [Moles/Vol] 138 mmol/L Normal 136-145 [facility] Comment on above: Performed By: #### T SOPHIE, FT3 #### [facility] [address] [place] [address] Dr. Cole Echeverria Urea nitrogen [Mass/Vol] 21.0 mg/dL Critically high 7.0-18.[address] [facility] Comment on above: Performed By: #### T SOPHIE, FT3 #### [facility] [address] [place] [address] Dr. Cole Echeverria Urea nitrogen/Creatinine [Mass ratio] 18.6 mg/mg Normal [facility] Comment on above: Performed By: #### T SOPHIE, FT3 #### [facility] [address] [place] [address] Dr. Cole Echeverria URINE T PROTEIN CREAT RATIOo n 10-03-2022 Protein (U) [Mass/Vol] 7.0 mg/dL Normal <=12.0 [facility] Comment on above: Performed By: #### T SH, FT3 #### [facility] [address] [place] [address] Dr. Cole Echeverria UR PROT CREAT RAT 0.11 Normal [facility] Comment on above: Performed By: #### T SOPHIE, FT3 #### [facility] [address] [place] [address] Dr. Cole Echeverria URINE CREAT 62.81 mg/dL Normal 20.00-300.00 [facility] Comment on above: Performed By: #### T SOPHIE, FT3 #### [facility] [address] [place] [address] Dr. Cole Echeverria VITAMIN D 25 OHon 10-03-2022 VIT D 25-OH 52.1 ng/mL Normal [facility] Comment on above: Performed By: #### T SOPHIE, FT3 #### [facility] [address] [place] [address] Dr. Cole Echeverria VIT D RANGES SEE BELOW Normal [facility] Comment on above: Result Comment: <20 ng/mL Vit D deficient 20 - <30 ng/mL Vit D insufficient 30 - 100 ng/mL Vit D sufficient >100 ng/mL Potential Toxicity Performed By: #### T SH, FT3 #### [facility] [address] [address] [address] Cole Echeverria BNPon 07-12-2022 Natriuretic peptide B (Bld) [Mass/Vol] 1748.0 pg/mL Normal <=1,800.0 [facility] Comment on above: Performed By: #### F T4, PSASC #### [facility] [address] [place] [address] Dr. Cole Echeverria Office Visit (Cardiology)on 07-12-2022 Follow-up visit Diagnoses/Problems Health Maintenance/Risks Encounter for preventive health examination (V70.0) (Z00.00) Assessed Pulmonary embolism (415.19) (I26.99) DVT (deep venous thrombosis) (453.40) (I82.409) History of COVID-19 (V12.09) (Z86.16) Chronic kidney disease (585.9) (N18.9) Morbid obesity with BMI of 50.0-59.9, adult (278.01,V85.43) (E66.01,Z68.43) Orders Chronic kidney disease, DVT (deep venous thrombosis), Health Maintenance, History of COVID-19, Morbid obesity with BMI of 50.0-59.9, adult, Pulmonary embolism Basic Metabolic Panel; Status:Active - Retrospective Authorization; Requested for:[id number]; Brain Natriuretic Peptide BNP; Status:Active - Retrospective Authorization; Requested for:[id number]; Health Maintenance Basic Metabolic Panel; Status:Canceled - Retrospective Authorization; Morbid obesity with BMI of 50.0-59.9, adult Healthy Weight Tips; Status:Complete - Retrospective Authorization; Done: [id number] Unlinked Healthy Weight Tips; Status:Complete - Retrospective Authorization; Done: [id number] Tobacco Use Screening; Status:Complete; Done: [id number] Tobacco Use Screening; Status:Complete; Done: [id number] Patient Instructions Please bring all medicines, vitamins, and herbal supplements with you when you come to the office. Prescriptions will not be filled unless you are compliant with your follow up appointments or have a follow up appointment scheduled as per instruction of your physician. Refills should be requested at the time of your visit patient to have labs done to determine kidney function, will have d-dimer/ct scan if come back acceptable. Follow up in 6 months Chief Complaint 07/05/2022 [facility] [place] SP EKOS. ELEUTERIO CABRAL is being seen for follow-up of a hospitalization for. 76-year-old morbidly obese gentleman who returns for office visit following bilateral DVTs and high risk perfusion scan (no ventilation scan due to COVID pandemic) suspicious for bilateral peripheral PEs. Patient has persistent exertional dyspnea currently on Xarelto therapy, remains morbidly obese, has chronic kidney disease with baseline serum creatinine last measured around 1.86 as high as 2.25. Patient did not undergo angiographic assessment nor catheter-based intervention due to his chronic kidney disease and the potential for worsening of his kidney function. He did have significant right ventricular dilation and dysfunction and hypokinesis and moderately severe pulmonary hypertension with RVSP of 55 mmHg. However, this is in conjunction with morbid obesity, chronic obstructive sleep apnea. Lower extremity venous Doppler revealed right saphenous vein and left femoral and popliteal vein thrombus. His DVTs/high probability PEs came on the heels of COVID illness, and immobility 3 weeks following a cruise where he acquired COVID. As the patient was unwilling to take the risk of potential worsening in his renal function we therefore transitioned him to conservative based therapy with ongoing anticoagulation. He still has significant exertional dyspnea, risk benefits alternatives and informed decision-making process performed with patient again today and will proceed with remeasuring his renal function, D-dimer, BNP, if his renal function is improved we will consider proceeding with CT?PE protocol to reassess for thrombus burden. Surgical History Problems History of Thrombectomy Current Meds Medication NameInstruction Furosemide 40 MG Oral TabletTAKE 1 TABLET DAILY. Synthroid 150 MCG Oral TabletTAKE 1 TABLET DAILY. traMADol HCl - 50 MG Oral TabletTAKE 2 TABLET Twice daily Xarelto 20 MG Oral TabletTake 1 tablet daily Xarelto Starter Pack TBPKas directed Allergies Medication No Known Drug Allergies Recorded By: Nancy Sin; 07/12/2022 11:35:27 AM Social History Problems Denied: History of Caffeine use No alcohol use No illicit drug use Review of Systems Constitutional: not feeling tired. Cardiovascular: no intermittent leg claudication and as noted in HPI. Respiratory: no cough and no shortness of breath. Gastrointestinal: no change in bowel habits and no blood in stools. Integumentary: no skin rashes. Neurological: no seizures and no frequent falls. All other systems have been reviewed and are negative for complaint. Vitals Vital Signs Recorded: 12Jul2022 11:36AM Heart Gbsu629, L Radial Mbiybmyt802, LUE, Sitting Ylqwtkqrh15, LUE, Sitting Height5 ft 11 in Smvrcg508 lb BMI Nopdvawupt57.05 kg/m2 BSA Calculated2.73 Tobacco Useb) No PHQ-2 #1. Over the last 2 weeks have you felt down, depressed or hopeless? (If yes, answer PHQ-9 below)No PHQ-2 #2. Over the last 2 weeks have you felt little interest or pleasure in doing things? (If yes, answer PHQ-9 below)No Falls Screening (Age 18+)a) No falls within the last year Physical Exam Constitutional: alert and in no acute distress. Neck: neck is supple, symmetric, trachea midline, no masses and no thyrom (more content not included)... Normal [employer] PROF CHEM 8 (BAS METB)on Anion gap [Moles/Vol] 10.2 mmol/L Normal [facility] Comment on above: Performed By: #### F T4, PSASC #### [facility] [address] [address] [address] Cole Echeverria Calcium [Mass/Vol] 8.9 mg/dL Normal 8.5-10.1 [facility] Comment on above: Performed By: #### F T4, PSASC #### [facility] [address] [address] [address] Cole Echeverria Chloride [Moles/Vol] 97 mmol/L Critically low 98-107 [facility] Comment on above: Performed By: #### F T4, PSASC #### [facility] [address] [address] [address] Cole Echeverria CO2 [Moles/Vol] 32.3 mmol/L Critically high 21.0-32.0 [facility] Comment on above: Performed By: #### F T4, PSASC #### [facility] [address] [address] [address] Cole Echeverria Creatinine [Mass/Vol] 1.18 mg/dL Normal 0.70-1.[address] [facility] Comment on above: Performed By: #### F T4, PSASC #### [facility] [address] [address] [address] Cole Echeverria EGFR-AF MONEGASQUE >60 Normal >=60 [facility] Comment on above: Performed By: #### F T4, PSASC #### [facility] [address] [place] [address] Dr. Cole Echeverria EGFR-NON AF MONEGASQUE =60 Normal >=60 [facility] Comment on above: Performed By: #### F T4, PSASC #### [facility] [address] [address] [address] Cole Echeverria Glucose [Mass/Vol] 104 mg/dL Normal 74-106 [facility] Comment on above: Performed By: #### F T4, PSASC #### [facility] [address] [address] [address] Cole Echeverria Potassium [Moles/Vol] 3.5 mmol/L Normal 3.5-5.[address] [facility] Comment on above: Performed By: #### F T4, PSASC #### [facility] [address] [address] [address] Cole Echeverria Sodium [Moles/Vol] 136 mmol/L Normal 136-145 [facility] Comment on above: Performed By: #### F T4, PSASC #### [facility] [address] [address] [address] Cole Echeverria Urea nitrogen [Mass/Vol] 11.0 mg/dL Normal 7.0-18.0 [facility] Comment on above: Performed By: #### F T4, PSASC #### [facility] [address] [address] [address] Cole Echeverria Urea nitrogen/Creatinine [Mass ratio] 9.3 mg/mg Normal [facility] Comment on above: Performed By: #### F T4, PSASC #### [facility] [address] [address] [address] Cole Echeverria Tobacco Screening.on 022 Adult depression screening assessment No [facility] [facility] DO Work Phone: Fall risk assessment a) No falls within the last year [facility] 250 DO Work Phone: Tobacco use status [facility] b) No [facility] 250 DO Work Phone: Basic Metabolic Panelon 06-06-2021 Calcium [Mass/Vol] 8.7 mg/dL Normal 8.2-10.2 [facility] Comment on above: Performed By: #### C BC, BMP #### [facility] [address] Chloride [Moles/Vol] 104 mmol/L Normal 95-114 [facility] Comment on above: Performed By: #### C BC, BMP #### [facility] [address] CO2 [Moles/Vol] 28.0 mmol/L Normal 22.0-30.0 [facility] Comment on above: Performed By: #### C BC, BMP #### [facility] [address] [place] [address] [place] Creatinine [Mass/Vol] 1.60 mg/dL High 0.64-1.27 [facility] Comment on above: Performed By: #### C BC, BMP #### [facility] [address] [place] [address] [place] Creatinine Clr Calc Pharmacy 62.30 Normal [facility] Comment on above: Result Comment: PERF ORMED BY: [place] [address] PATHOLOGIST LEGAL SUMMER INTERN ADRIEN RAMIREZ M.D. Performed By: #### C BC, BMP #### [place] [address] [place] Estimated GFR ( Janeen 51 Normal [facility] Comment on above: Result Comment: GFR estimated reference range: According to KDOQI guidelines, <60 ml/min/1.73m2 is sufficient to diagnose a patient with chronic kidney disease. Performed By: #### C BC, BMP #### [address] Estimated GFR (Non- Am 42 Normal [facility] Comment on above: Performed By: #### C BC, BMP #### [address] Glucose [Mass/Vol] 111 mg/dL High 70-100 [facility] Comment on above: Result Comment: [place] om Glucose Reference Range is dependent on time and content of last meal. Glucose of more than 200 mg/dL in a nonstressed, ambulatory subject supports the diagnosis of Diabetes Mellitus. ADA recommended reference range Performed By: #### C BC, BMP #### [address] Potassium [Moles/Vol] 4.1 mmol/L Normal 3.5-5.1 [facility] Comment on above: Performed By: #### C BC, BMP #### [address] Sodium [Moles/Vol] 139 mmol/L Normal 136-146 [facility] Comment on above: Performed By: #### C BC, BMP #### [address] Urea nitrogen [Mass/Vol] 35 mg/dL High 9-23 [facility] Comment on above: Performed By: #### C BC, BMP #### [address] Complete Blood Count Auto Di ffon 06-24-2022 Basophils (Bld) [#/Vol] 0.1 10*3/uL Normal 0.0-0.2 [facility] Comment on above: Result Comment: PERF ORMED BY: [address] [address] PATHOLOGIST LEGAL SUMMER INTERN ADRIEN RAMIREZ M.D. Performed By: #### C BC, BMP #### [facility] [address] [place] [address] [place] Basophils/100 WBC (Bld) 0.6 % Normal . [facility] Comment on above: Performed By: #### C BC, BMP #### [facility] [address] [place] [address] [place] Eosinophils (Bld) [#/Vol] 0.6 10*3/uL High 0.0-0.45 [facility] Comment on above: Performed By: #### C BC, BMP #### [facility] [address] Eosinophils/100 WBC (Bld) 7.2 % Normal . [facility] Comment on above: Performed By: #### C BC, BMP #### [facility] [address] Erythrocyte distribution width (RBC) [Ratio] 14.9 % High 12.0-14.8 [facility] Comment on above: Performed By: #### C BC, BMP #### [facility] [address] Hematocrit (Bld) [Volume fraction] 39.6 % Normal 38.8-50.0 [facility] Comment on above: Performed By: #### C BC, BMP #### [facility] [address] [place] [address] [place] Hemoglobin (Bld) [Mass/Vol] 13.1 g/dL Normal 13.0-17.0 [facility] Comment on above: Performed By: #### C BC, BMP #### [facility] [address] [place] [address] [place] Lymphocytes (Bld) [#/Vol] 2.0 10*3/uL Normal 1.00-4.8 [facility] Comment on above: Performed By: #### C BC, BMP #### [facility] [address] [place] [address] [place] Lymphocytes/100 WBC (Bld) 23.1 % Normal . [facility] Comment on above: Performed By: #### C BC, BMP #### [facility] [address] MCH (RBC) [Entitic mass] 30.2 pg Normal 27.5-35.2 [facility] Comment on above: Performed By: #### C BC, BMP #### [facility] [address] MCV (RBC) [Entitic vol] 91.5 fL Normal 83.5-101 [facility] Comment on above: Performed By: #### C BC, BMP #### [facility] [address] Mean Corpuscular HGB Conc 33.0 g/dL Normal 32.5-35.6 [facility] Comment on above: Performed By: #### C BC, BMP #### [facility] [address] Monocytes (Bld) [#/Vol] 0.6 10*3/uL Normal 0.0-0.8 [facility] Comment on above: Performed By: #### C BC, BMP #### [facility] [address] Monocytes/100 WBC (Bld) 7.5 % Normal . [facility] Comment on above: Performed By: #### C BC, BMP #### [facility] [address] Neutrophils (Bld) [#/Vol] 5.3 10*3/uL Normal 1.8-7.7 [facility] Comment on above: Performed By: #### C BC, BMP #### [facility] [address] Neutrophils/100 WBC (Bld) 61.6 % Normal . [facility] Comment on above: Performed By: #### C BC, BMP #### [facility] [address] Nucleated RBC/100 WBC (Bld) [Ratio] 0.0 % Normal 0-0.5 [facility] Comment on above: Performed By: #### C BC, BMP #### [facility] [address] Platelet mean volume (Bld) [Entitic vol] 9.0 fL Normal 6.6-10.1 [facility] Comment on above: Performed By: #### C BC, BMP #### [facility] [address] [place] [address] Platelets (Bld) [#/Vol] 165 10*3/uL Normal 150-450 [facility] Comment on above: Performed By: #### C BC, BMP #### [address] RBC (Bld) [#/Vol] 4.33 10*6/uL Normal 3.90-5.60 [facility] Comment on above: Performed By: #### C BC, BMP #### [address] WBC (Bld) [#/Vol] 8.6 10*3/uL Normal 4.5-11.0 [facility] Comment on above: Performed By: #### C BC, BMP #### [address] Creatinine, Urine (Random)on 06-24-2022 Creatinine, Urine (Random) 162.5 mg/dL Normal [facility] Comment on above: Result Comment: No r eference range established Performed By: #### C BC, BMP #### [address] Partial Thromboplastin Timeo n 06-24-2022 aPTT Coag (Bld) [Time] 77.2 s High 25.1-36.5 [facility] Comment on above: Result Comment: PERF ORMED BY: [place] [address] PATHOLOGIST LEGAL SUM[employer] INTERN ADRIEN RAMIREZ M.D. Performed By: #### C BC, BMP #### [address] Prothrombin Time INRon 08-20 -2022 INR Coag (PPP) [Relative time] 1.9 {INR} Normal [facility] Comment on above: Result Comment: INR Therapeutic Range A) Pre- and Peroperative OAT started two weeks before surgery. NOT HIP SURGERY: 1.5 - 2.5 HIP SURGERY: 2 - 3 B) Primary and secondary prevention of venous THROMBOSIS: 2 - 3 C) Active venous thrombosis, pulmonary embolism and prevention of recurrent venous thrombosis: 2 - 3 D) Prevention of arterial thromboembolism including patients with mechanical heart valves: 3 - 4.5 Performed By: #### C BC, BMP #### [address] PT Coag (PPP) [Time] 21.9 s High 9.0-12.9 [facility] Comment on above: Performed By: #### C BC, BMP #### [address] Thyroid Stim Hormone w/Rflxo n 06-24-2022 Thyroid Stim Hormone w/Rflx 1.06 u[iU]/mL Normal 0.45-5.33 [facility] Comment on above: Order Comment: Comme nt Add on to previous lab draw Result Comment: PERF ORMED BY: [place] [address] PATHOLOGIST LEGAL SUM[employer] INTERN ADRIEN RAMIREZ M.D. Performed By: #### C BC, BMP #### [address] Total Protein, Urineon 06-24 Protein (U) [Mass/Vol] 7 mg/dL Normal 0-9 [facility] Comment on above: Result Comment: PERF ORMED BY: [place] [address] PATHOLOGIST LEGAL SUMMER INTERN ADRIEN RAMIREZ M.D. Performed By: #### C BC, BMP #### [address] [place] [id number] [facility] Urinalysison 06-24-2022 Appearance (U) Clear Normal Clear [facility] Comment on above: Order Comment: Name Collection Type:: Voided Performed By: #### C BC, BMP #### [place] [address] [place] Bilirubin,Urine Negative Normal Negative [facility] Comment on above: Order Comment: Name Collection Type:: Voided Performed By: #### C BC, BMP #### [facility] [address] [place] [address] Color (U) Yellow Normal Yellow [facility] Comment on above: Order Comment: Name Collection Type:: Voided Performed By: #### C BC, BMP #### [address] Glucose Ql (U) Normal Normal Normal [facility] Comment on above: Order Comment: Name Collection Type:: Voided Performed By: #### C BC, BMP #### [address] Ketones Ql (U) Negative Normal Negative [facility] Comment on above: Order Comment: Name Collection Type:: Voided Performed By: #### C BC, BMP #### [address] Leukocyte esterase Test strip Ql (U) Negative Normal Negative [facility] Comment on above: Order Comment: Name Collection Type:: Voided Performed By: #### C BC, BMP #### [address] Nitrite,Urine Negative Normal Negative [facility] Comment on above: Order Comment: Name Collection Type:: Voided Performed By: #### C BC, BMP #### [place] [address] [place] Occult Blood,Urine Negative Normal Negative [facility] Comment on above: Order Comment: Name Collection Type:: Voided Result Comment: PERF ORMED BY: [place] [address] PATHOLOGIST LEGAL SUM[employer] INTERN ADRIEN RAMIREZ M.D. Performed By: #### C BC, BMP #### [address] pH (U) 5.5 [pH] Normal 5.0-9.0 [facility] Comment on above: Order Comment: Name Collection Type:: Voided Performed By: #### C BC, BMP #### [address] Protein,Urine Negative Normal Negative [facility] Comment on above: Order Comment: Name Collection Type:: Voided Performed By: #### C BC, BMP #### [address] Specificy [place],Urine 1.021 Normal 1.001-1.030 [facility] Comment on above: Order Comment: Name Collection Type:: Voided Performed By: #### C BC, BMP #### [address] Urobilinogen,Urine Normal Normal Normal [facility] Comment on above: Order Comment: Name Collection Type:: Voided Performed By: #### C BC, BMP #### [address] B-Type Natriuretic Peptideon 06-23-2022 Natriuretic peptide B (Bld) [Mass/Vol] 343.0 pg/mL High 5-100 [facility] Comment on above: Result Comment: PERF ORMED BY: [place] [address] PATHOLOGIST LEGAL SUMMER INTERN ADRIEN RAMIREZ M.D. Performed By: #### B POLITICAL ANTHROPOLOGIST #### [address] Basic Metabolic Panelon 06-05 Calcium [Mass/Vol] 8.2 mg/dL Normal 8.2-10.2 [facility] Comment on above: Performed By: #### C BC, BMP #### [place] [address] [place] Chloride [Moles/Vol] 103 mmol/L Normal 95-114 [facility] Comment on above: Performed By: #### C BC, BMP #### [place] [address] [place] CO2 [Moles/Vol] 27.3 mmol/L Normal 22.0-30.0 [facility] Comment on above: Performed By: #### C BC, BMP #### [facility] [address] Creatinine [Mass/Vol] 1.86 mg/dL High 0.64-1.27 [facility] Comment on above: Performed By: #### C BC, BMP #### [facility] [address] Creatinine Clr Calc Pharmacy 53.59 [facility] Comment on above: Result Comment: PERF ORMED BY: [place] [address] PATHOLOGIST LEGAL SUMMER INTERN ADRIEN RAMIREZ M.D. Performed By: #### C BC, BMP #### [address] Estimated GFR ( Janeen 43 [facility] Comment on above: Result Comment: GFR estimated reference range: According to KDOQI guidelines, <60 ml/min/1.73m2 is sufficient to diagnose a patient with chronic kidney disease. Performed By: #### C BC, BMP #### [place] [address] [place] Estimated GFR (Non- Am 36 [facility] Comment on above: Performed By: #### C BC, BMP #### [address] Glucose [Mass/Vol] 144 mg/dL High 70-100 [facility] Comment on above: Result Comment: [place] Glucose Reference Range is dependent on time and content of last meal. Glucose of more than 200 mg/dL in a nonstressed, ambulatory subject supports the diagnosis of Diabetes Mellitus. ADA recommended reference range Performed By: #### C BC, BMP #### [address] Potassium [Moles/Vol] 3.8 mmol/L Normal 3.5-5.1 [facility] Comment on above: Performed By: #### C BC, BMP #### [address] [address] [place] Sodium [Moles/Vol] 138 mmol/L Normal 136-146 [facility] Comment on above: Performed By: #### C BC, BMP #### [address] Urea nitrogen [Mass/Vol] 42 mg/dL High 9-23 [facility] Comment on above: Performed By: #### C BC, BMP #### [address] Complete Blood Count Auto Di ffon 06-23-2022 Basophils (Bld) [#/Vol] 0.0 10*3/uL Normal 0.0-0.2 [facility] Comment on above: Result Comment: PERF ORMED BY: [place] [address] PATHOLOGIST LEGAL SUMMER INTERN ADRIEN RAMIREZ M.D. Performed By: #### C AMANDEEP, BMP #### [address] Basophils/100 WBC (Bld) 0.3 % Normal . [facility] [facility] Comment on above: Performed By: #### C AMANDEEP, BMP #### [address] Eosinophils (Bld) [#/Vol] 0.6 10*3/uL High 0.0-0.45 [facility] Comment on above: Performed By: #### C AMANDEEP, BMP #### [address] Eosinophils/100 WBC (Bld) 6.6 % Normal . [facility] Comment on above: Performed By: #### C BC, BMP #### [address] Erythrocyte distribution width (RBC) [Ratio] 14.6 % Normal 12.0-14.8 [facility] Comment on above: Performed By: #### C BC, BMP #### [address] Hematocrit (Bld) [Volume fraction] 39.2 % Normal 38.8-50.0 [facility] Comment on above: Performed By: #### C BC, BMP #### [facility] [address] Hemoglobin (Bld) [Mass/Vol] 12.8 g/dL Low 13.0-17.0 [facility] Comment on above: Performed By: #### C BC, BMP #### [facility] [address] Lymphocytes (Bld) [#/Vol] 1.8 10*3/uL Normal 1.00-4.8 [facility] Comment on above: Performed By: #### C BC, BMP #### [facility] [address] Lymphocytes/100 WBC (Bld) 21.7 % Normal . [facility] Comment on above: Performed By: #### C BC, BMP #### [facility] [address] MCH (RBC) [Entitic mass] 30.0 pg Normal 27.5-35.2 [facility] Comment on above: Performed By: #### C BC, BMP #### [facility] [address] MCV (RBC) [Entitic vol] 92.1 fL Normal 83.5-101 [facility] Comment on above: Performed By: #### C BC, BMP #### [facility] [address] Mean Corpuscular HGB Conc 32.5 g/dL Normal 32.5-35.6 [facility] Comment on above: Performed By: #### C BC, BMP #### [facility] [address] [place] [address] [place] Monocytes (Bld) [#/Vol] 0.5 10*3/uL Normal 0.0-0.8 [facility] Comment on above: Performed By: #### C BC, BMP #### [facility] [address] [place] [address] [place] Monocytes/100 WBC (Bld) 6.3 % Normal . [facility] Comment on above: Performed By: #### C BC, BMP #### [facility] [address] [place] [address] [place] Neutrophils (Bld) [#/Vol] 5.5 10*3/uL Normal 1.8-7.7 [facility] Comment on above: Performed By: #### C BC, BMP #### [facility] [address] [place] [id number] [place] Neutrophils/100 WBC (Bld) 65.1 % Normal . [facility] Comment on above: Performed By: #### C BC, BMP #### [facility] [address] [place] [address] [place] Nucleated RBC/100 WBC (Bld) [Ratio] 0.0 % Normal 0-0.5 [facility] Comment on above: Performed By: #### C BC, BMP #### [facility] [address] [place] [address] [place] Platelet mean volume (Bld) [Entitic vol] 9.1 fL Normal 6.6-10.1 [facility] Comment on above: Performed By: #### C BC, BMP #### [facility] [address] [place] [address] [place] Platelets (Bld) [#/Vol] 165 10*3/uL Normal 150-450 [facility] Comment on above: Performed By: #### C BC, BMP #### [facility] [address] [place] [address] [place] RBC (Bld) [#/Vol] 4.26 10*6/uL Normal 3.90-5.60 [facility] Comment on above: Performed By: #### C BC, BMP #### [facility] [address] [place] [address] [place] WBC (Bld) [#/Vol] 8.4 10*3/uL Normal 4.5-11.0 [facility] Comment on above: Performed By: #### C BC, BMP #### [facility] [address] [place] [address] [place] Basophils (Bld) [#/Vol] 0.0 10*3/uL Normal 0.0-0.2 [facility] Comment on above: Result Comment: PERF ORMED BY: [place] [address] PATHOLOGIST LEGAL SUM[employer] INTERN ADRIEN RAMIREZ M.D. Performed By: #### C BC, CMP, HS TROP #### [facility] [address] [place] [address] Basophils/100 WBC (Bld) 0.4 % Normal . [facility] Comment on above: Performed By: #### C BC, CMP, HS TROP #### [place] [address] [place] Eosinophils (Bld) [#/Vol] 0.5 10*3/uL High 0.0-0.45 [facility] Comment on above: Performed By: #### C BC, CMP, HS TROP #### [address] Eosinophils/100 WBC (Bld) 4.0 % Normal . [facility] Comment on above: Performed By: #### C BC, CMP, HS TROP #### [address] Erythrocyte distribution width (RBC) [Ratio] 14.7 % Normal 12.0-14.8 [facility] Comment on above: Performed By: #### C BC, CMP, HS TROP #### [address] Hematocrit (Bld) [Volume fraction] 41.3 % Normal 38.8-50.0 [facility] Comment on above: Performed By: #### C BC, CMP, HS TROP #### [facility] [address] [place] [address] [place] Hemoglobin (Bld) [Mass/Vol] 13.4 g/dL Normal 13.0-17.0 [facility] Comment on above: Performed By: #### C BC, CMP, HS TROP #### [facility] [address] [place] [address] [place] Lymphocytes (Bld) [#/Vol] 2.0 10*3/uL Normal 1.00-4.8 [facility] Comment on above: Performed By: #### C BC, CMP, HS TROP #### [address] Lymphocytes/100 WBC (Bld) 17.2 % Normal . [facility] Comment on above: Performed By: #### C BC, CMP, HS TROP #### [facility] [address] [place] [address] MCH (RBC) [Entitic mass] 30.1 pg Normal 27.5-35.2 [facility] Comment on above: Performed By: #### C BC, CMP, HS TROP #### [address] MCV (RBC) [Entitic vol] 92.6 fL Normal 83.5-101 [facility] Comment on above: Performed By: #### C BC, CMP, HS TROP #### [address] Mean Corpuscular HGB Conc 32.4 g/dL Low 32.5-35.6 [facility] Comment on above: Performed By: #### C BC, CMP, HS TROP #### [address] Monocytes (Bld) [#/Vol] 0.7 10*3/uL Normal 0.0-0.8 [facility] Comment on above: Performed By: #### C BC, CMP, HS TROP #### [address] Monocytes/100 WBC (Bld) 5.8 % Normal . [facility] Comment on above: Performed By: #### C BC, CMP, HS TROP #### [facility] [address] [place] [address] [place] Neutrophils (Bld) [#/Vol] 8.4 10*3/uL High 1.8-7.7 [facility] Comment on above: Performed By: #### C BC, CMP, HS TROP #### [address] [address] [place] Neutrophils/100 WBC (Bld) 72.6 % Normal . [facility] Comment on above: Performed By: #### C BC, CMP, HS TROP #### [facility] [address] Nucleated RBC/100 WBC (Bld) [Ratio] 0.0 % Normal 0-0.5 [facility] Comment on above: Performed By: #### C BC, CMP, HS TROP #### [facility] [address] Platelet mean volume (Bld) [Entitic vol] 9.0 fL Normal 6.6-10.1 [facility] Comment on above: Performed By: #### C BC, CMP, HS TROP #### [address] Platelets (Bld) [#/Vol] 204 10*3/uL Normal 150-450 [facility] Comment on above: Performed By: #### C BC, CMP, HS TROP #### [address] RBC (Bld) [#/Vol] 4.45 10*6/uL Normal 3.90-5.60 [facility] Comment on above: Performed By: #### C BC, CMP, HS TROP #### [address] WBC (Bld) [#/Vol] 11.6 10*3/uL High 4.5-11.0 [facility] Comment on above: Performed By: #### C BC, CMP, HS TROP #### [facility] [address] [place] [address] Comprehensive Metabolic Pane isidro 06-23-2022 Albumin [Mass/Vol] 2.9 g/dL Low 3.2-5.5 [facility] Comment on above: Performed By: #### C BC, CMP, HS TROP #### [facility] [address] [place] [address] Albumin/Globulin [Mass ratio] 0.7 {ratio} Normal [facility] Comment on above: Performed By: #### C BC, CMP, HS TROP #### [facility] [address] [place] [id number] [place] ALP [Catalytic activity/Vol] 70 U/L Normal 32-92 [facility] Comment on above: Performed By: #### C BC, CMP, HS TROP #### [facility] [address] [place] [id number] [place] ALT [Catalytic activity/Vol] 20 U/L Normal 10-60 [facility] Comment on above: Performed By: #### C BC, CMP, HS TROP #### [facility] [address] [place] [id number] [place] AST [Catalytic activity/Vol] 20 U/L Normal 10-42 [facility] Comment on above: Performed By: #### C BC, CMP, HS TROP #### [facility] [address] [place] [address] [place] Bilirubin [Mass/Vol] 1.2 mg/dL Normal 0.3-1.2 [facility] Comment on above: Performed By: #### C BC, CMP, HS TROP #### [facility] [address] [place] [id number] [place] Calcium [Mass/Vol] 8.8 mg/dL Normal 8.2-10.2 [facility] Comment on above: Performed By: #### C BC, CMP, HS TROP #### [facility] [address] [place] [id number] [place] Chloride [Moles/Vol] 97 mmol/L Normal 95-114 [facility] Comment on above: Performed By: #### C BC, CMP, HS TROP #### [facility] [address] [place] [id number] [place] CO2 [Moles/Vol] 28.1 mmol/L Normal 22.0-30.0 [facility] Comment on above: Performed By: #### C BC, CMP, HS TROP #### [facility] [address] [place] [id number] [place] Creatinine [Mass/Vol] 1.87 mg/dL High 0.64-1.27 [facility] Comment on above: Performed By: #### C BC, CMP, HS TROP #### [facility] [address] [place] [address] [place] Creatinine Clr Calc Pharmacy 52.98 [facility] Comment on above: Result Comment: PERF ORMED BY: [place] [address] PATHOLOGIST LEGAL SUM[employer] INTERN ADRIEN RAMIREZ M.D. Performed By: #### C BC, CMP, HS TROP #### [address] Estimated GFR ( Janeen 43 [facility] Comment on above: Result Comment: GFR estimated reference range: According to KDOQI guidelines, <60 ml/min/1.73m2 is sufficient to diagnose a patient with chronic kidney disease. Performed By: #### C BC, CMP, HS TROP #### [facility] [address] [place] [address] Estimated GFR (Non- Am 35 [facility] Comment on above: Performed By: #### C BC, CMP, HS TROP #### [facility] [address] [place] [address] Globulin (S) [Mass/Vol] 4.0 g/dL Normal [facility] Comment on above: Performed By: #### C BC, CMP, HS TROP #### [facility] [address] [place] [address] Glucose [Mass/Vol] 121 mg/dL High 70-100 [facility] Comment on above: Result Comment: [place] Glucose Reference Range is dependent on time and content of last meal. Glucose of more than 200 mg/dL in a nonstressed, ambulatory subject supports the diagnosis of Diabetes Mellitus. ADA recommended reference range Performed By: #### C BC, CMP, HS TROP #### [facility] [address] Potassium [Moles/Vol] 4.1 mmol/L Normal 3.5-5.1 [facility] Comment on above: Performed By: #### C BC, CMP, HS TROP #### [facility] [address] Protein [Mass/Vol] 6.9 g/dL Normal 6.1-7.9 [facility] Comment on above: Performed By: #### C BC, CMP, HS TROP #### [facility] [address] Sodium [Moles/Vol] 137 mmol/L Normal 136-146 [facility] Comment on above: Performed By: #### C BC, CMP, HS TROP #### [facility] [address] Urea nitrogen [Mass/Vol] 41 mg/dL High 9- [facility] Comment on above: Performed By: #### C BC, CMP, HS TROP #### [facility] [address] [place] [address] Creatinine, Urine (Random)on 06-23-2022 Creatinine, Urine (Random) 60.1 mg/dL Normal [facility] Comment on above: Result Comment: No r eference range established Performed By: #### U NA, UCREA #### [facility] [address] [place] [address] #### UR UREA NIT #### [facility] , [facility] echo transthoracicon [facility] echo transthoracic [facility] [place] [address] [place] [address] Echocardiogram Signed Patient: Eleuterio Cabral MR#: [id number] : 1945 Acct:[id number] Age/Sex: 76 / M ADM Date: 06/22/22 Loc: Room: [address] [place] [address] Type: DIS IN Attending Dr: Eleuterio Napier MD Ordering Provider: Nely Michelle APRN Date of Service: 06/22/22 ECH/ECH echo transthoracic: CHF Copies to: Rojas Rivas MD, [facility] Nely Michelle APRN Height: 71 in Weight: 360 lb Performed By: Rani Ramos [facility] BSA: 2.7 m2 BP: 115/65 mmHg HR: 83 Reason For Study: CHF History: HTN, HEENA, Former Smoker, COVID Interpretation Summary The left ventricular size, thickness and function are normal Ejection Fraction = 60-65%. A variety of Doppler measurements indicate impaired left ventricular relaxation, which is associated with grade I/IV or mild diastolic dysfunction. The right ventricle is severely dilated with ballooning of the distal two thirds associated with severe hypokinesis. There is mild tricuspid regurgitation. The right ventricular systolic pressure is 55 mmHg. Right ventricular systolic pressure is consistent with moderate pulmonary hypertension. There is no prior echocardiogram noted for this patient. Procedure/Quality: A two-dimensional transthoracic echocardiogram with color flow, Doppler and injection of contrast agent Definity was performed. The study was technically fair in quality. There is no prior echocardiogram noted for this patient. Left Ventricle: The left ventricular size, thickness and function are normal. Ejection Fraction = 60-65%. A variety of Doppler measurements indicate impaired left ventricular relaxation, which is associated with grade I/IV or mild diastolic dysfunction. Left Atrium: The left atrium appears normal in size. Right Atrium: The right atrium appears normal in size. Right Ventricle: The right ventricle is severely dilated with ballooning of the distal two thirds associated with severe hypokinesis. Aortic Valve: The aortic valve is not well visualized. Mitral Valve: The mitral valve is not well visualized. Tricuspid Valve: The tricuspid valve is normal. There is mild tricuspid regurgitation. The right ventricular systolic pressure is 55 mmHg. Right ventricular systolic pressure is consistent with moderate pulmonary hypertension. Pulmonic Valve: The pulmonic valve is not well seen, but is grossly normal. Arteries: The aortic root is normal size. Pericardium/Pleura: No pericardial effusion seen. There is no pleural effusion. IVC/Hepatic Viens: Mildly dilated inferior vena cava. Miscellaneous: No thrombus, vegetation or mass is seen. Measurements with Normals IVSd: 0.80 cm (0.7-1.1 cm)LVIDd: 4.4 cm(3.7-5.4 cm) LVPWd: 0.85 cm (0.7-1.1 cm)LVIDs: 3.1 cm(2.3-3.6 cm) Ao root diam: 3.1 cm(2.0-3.6 cm) Doppler with Normals RVSP(TR): 55.3 mmHg (18-35mmHg) LV V1 max: 94.7 cm/sec (0.7-1.7m/s)MV E max zac: 53.6 cm/sec(0.8-1.3m/s) MV A max zac: 99.0 cm/sec(0.0-0.0m/s) MV E/A: 0.54 (<1.5) MMode/2D Measurements Calculations RVDd: 6.6 cm RV Base: 4.9 cm FS: 30.0 % Ao root area: TAPSE: 2.5 cm RV Mid: 5.8 cm EDV(Teich): 7.8 cm2 RV S Zac: 12.7 cm/sec RV Length: 9.5 cm 89.2 ml ESV(Teich): 38.0 ml EF(Teich): 57.4 % __ LVOT diam: 2.1 cm LVLd ap4: 7.8 cm SV(MOD-sp4): LAV(MOD-sp4): LVOT area: 3.6 cm2 EDV(MOD-sp4): 42.3 ml 59.1 ml 73.3 ml LAV(MOD-sp2): LVLs ap4: 6.7 cm 54.3 ml ESV(MOD-sp4): 31.0 ml EF(MOD-sp4): 57.7 % __ LA A2 area: 21.6 cm2 LA A4 area: 21.6 cm2 LA length (vol): 6.9 cm LA vol: 57.7 ml LA vol index: 21.4 ml/m2 Doppler Measurements Calculations MV dec time: E/E' lat: 7.7 MV dec slope: Ao V2 max: 0.17 sec E/E' med: 8.0 323.6 cm/sec2 97.9 cm/sec Ao max P.8 mmHg Ao mean P.1 mmHg Ao V2 mean: 68.1 cm/sec Ao V2 VTI: 13.4 cm MERRY(I,D): 3.6 cm2 MERRY(V,D): 3.5 cm2 __ LV V1 max PG: TV max PG: TR max zac: 3.6 mmHg 45.0 mmHg 336.6 cm/sec LV V1 mean PG: TR max P.3 mmHg 2.6 mmHg RAP systole: 10.0 mmHg LV V1 mean: 79.0 cm/sec LV V1 VTI: 13.4 cm Transcribed By: SCV Performed At: 06/23/22951 Signed By: Rojas Rivas MD, [facility] 06/23/22 1045 [facility] NM pul perfusionon NM pul perfusion [facility] [place] [address] Nuclear Medicine Report Signed with Addenda Patient: Eleuterio Cabral MR#: [id number] : 1945 Acct:[id number] Age/Sex: 76 / M ADM Date: 06/22/22 Loc: Room: [address] [place] [address] Type: ADM IN Attending Dr: Eleuterio Napier MD Copies to: MD Fely Etienne MD Linda Obika, APRN Ordering Provider: Nely Michelle APRN Date of Service: 06/23/22 NM/NM pul perfusion: R/O PE ADDENDUM 1 Patient's nurse was notified of findings at the time of this interpretation at 1511 hours Impression dictated by: Fely Henderson M.D.06/23/2022 3:12 PM Dictation Location: [place] [address] Addendum Dictated By: MD Fely Henderson Addendum Signed By: 06/23/221511 Addendum Cosigned By: DD/ TD/TT: 06/23/22 PERFUSION LUNG SCAN CLINICAL HISTORY: Chest pain, shortness breath and left lower extremity DVT COMPARISON: Chest x-ray 06/22/2022 Following the intravenous injection of 5.0 mCi Technetium 99m labeled MAA, perfusion images of the lungs were obtained in multiple projections using COVID protocol. There are mismatch perfusion defects, most notable at the left base. Given the presence of known lower extremity DVT, this is suspicious for pulmonary embolus. NM/NM pul perfusion IMPRESSION: POTENTIAL HIGH PROBABILITY PERFUSION SCAN. Impression dictated by: Fely Henderson M.D.06/23/2022 3:06 PM Dictation Location: [place] [address] Transcribed By: [facility] 06/23/22 1506 Dictated By: Fely Henderson MD 06/23/22 1456 Signed By: 06/23/22 1506 Normal [facility] Partial Thromboplastin Timeo n 06-23-2022 aPTT Coag (Bld) [Time] 88.0 s High 25.1-36.5 [facility] Comment on above: Result Comment: PERF ORMED BY: [place] [address] PATHOLOGIST LEGAL SUMMER INTERN ADRIEN RAMIREZ M.D. Performed By: #### C BC, BMP #### [facility] [address] [place] [address] [place] aPTT Coag (Bld) [Time] 72.0 s High 25.1-36.5 [facility] Comment on above: Result Comment: PERF ORMED BY: [place] [address] PATHOLOGIST LEGAL SUMMER INTERN ADRIEN RAMIREZ M.D. Performed By: #### P TT #### [facility] [address] [place] [address] [place] aPTT Coag (Bld) [Time] 53.8 s High 25.1-36.5 [facility] Comment on above: Result Comment: PERF ORMED BY: [place] [address] PATHOLOGIST LEGAL SUMMER INTERN ADRIEN RAMIREZ M.D. Performed By: #### C BC, BMP #### [facility] [address] [place], [place] [id number] [place] aPTT Coag (Bld) [Time] 43.5 s High 25.1-36.5 [facility] Comment on above: Result Comment: PERF ORMED BY: [place] [address] PATHOLOGIST LEGAL SUMMER INTERN ADRIEN RAMIREZ M.D. Performed By: #### C BC, BMP #### [facility] [address] [place] [address] [place] Prothrombin Time INRon 06-23 INR Coag (PPP) [Relative time] 1.3 {INR} Normal [facility] Comment on above: Result Comment: INR Therapeutic Range A) Pre- and Peroperative OAT started two weeks before surgery. NOT HIP SURGERY: 1.5 - 2.5 HIP SURGERY: 2 - 3 B) Primary and secondary prevention of venous THROMBOSIS: 2 - 3 C) Active venous thrombosis, pulmonary embolism and prevention of recurrent venous thrombosis: 2 - 3 D) Prevention of arterial thromboembolism including patients with mechanical heart valves: 3 - 4.5 Performed By: #### C BC, BMP #### [place] [address] [place] PT Coag (PPP) [Time] 14.1 s High 9.0-12.9 [facility] Comment on above: Performed By: #### C BC, BMP #### [facility] [address] [place] [address] INR Coag (PPP) [Relative time] 1.3 {INR} Normal [facility] Comment on above: Result Comment: INR Therapeutic Range A) Pre- and Peroperative OAT started two weeks before surgery. NOT HIP SURGERY: 1.5 - 2.5 HIP SURGERY: 2 - 3 B) Primary and secondary prevention of venous THROMBOSIS: 2 - 3 C) Active venous thrombosis, pulmonary embolism and prevention of recurrent venous thrombosis: 2 - 3 D) Prevention of arterial thromboembolism including patients with mechanical heart valves: 3 - 4.5 Performed By: #### C BC, BMP #### [address] PT Coag (PPP) [Time] 14.2 s High 9.0-12.9 [facility] Comment on above: Performed By: #### C BC, BMP #### [place] [address] Sodium, Urine (Random)on Sodium (U) [Moles/Vol] 105 mmol/L Normal [facility] Comment on above: Result Comment: No r eference range established PERFORMED BY: [place] [address] PATHOLOGIST LEGAL SUMMER INTERN ADRIEN RAMIREZ M.D. Performed By: #### U NA, UCREA #### [address] #### UR UREA NIT #### [facility] , Troponin I High Sensitivityo n 06-23-2022 Troponin I High Sensitivity 174 pg/mL Off scale high 0-20 [facility] Comment on above: Result Comment: Resu lts called at 0721 on 06/23/22 PERFORMED BY: [place] [address] PATHOLOGIST LEGAL SUMMER INTERN ADRIEN RAMIREZ M.D. Performed By: #### C BC, BMP #### [address] Troponin I High Sensitivity 244 pg/mL Off scale high 0-20 [facility] Comment on above: Result Comment: Resu lts called at 2345 on 06/22/22 PERFORMED BY: [place] [address] PATHOLOGIST LEGAL SUMMER INTERN ADRIEN RAMIREZ M.D. Performed By: #### C BC, CMP, HS TROP #### [place] [address] [place] Urine Urea Nitrogenon 2021 Urine Urea Nitrogen 392 mg/dL Normal Not Estab. [facility] Comment on above: Result Comment: Perf ormed at: CB - [facility] [address] [id number] [employer] Keyboard Operator: Solo Burden PhD, Phone: [phone] PERFORMED BY: [place] [address] PATHOLOGIST LEGAL SUMMER INTERN ADRIEN RAMIREZ M.D. Performed By: #### U NA, UCREA #### [facility] [address] [place] [address] [place] #### UR UREA NIT #### [facility] , XR chest 1V portableon 06-23 XR chest 1V portable [facility] Main [place] [address] [place] [address] XRay Report Signed Patient: Eleuterio Cabral MR#: [id number] : 1945 Acct:[id number] Age/Sex: 76 / M ADM Date: 06/22/22 Loc: Room: [address] [place] [address] Type: ADM IN Attending Dr: Eleuterio Napier MD Copies to: MD Nely Etienne APRN Ordering Provider: Nely Michelle APRN Date of Service: 06/22/22 XR/XR chest 1V portable: chf Plain film chestsingle view HISTORY:CHF COMPARISON:None FINDINGS:Mild vascular congestion identified. The cardiac, mediastinal and hilar silhouettes are within normal limits. Mineral basilar pleural-parenchymal changes identified. No pneumothorax. Bony structures are intact. XR/XR chest 1V portable IMPRESSION: Mild vascular congestion. Minimal basal pleural parenchymal changes. May consider mild failure. Impression dictated by: Jayson Marsh M.D.06/23/2022 8:51 AM Dictation Location: [place] [address] Transcribed By: [facility] 06/23/22 0851 Dictated By: Jayson Marsh DO 06/23/22 0849 Signed By: 06/23/22 0851 Normal [facility] BNPon 06-22-2022 Natriuretic peptide B (Bld) [Mass/Vol] 30790.0 pg/mL Critically high <=1,800.[address] [facility] Comment on above: Performed By: #### F T4, PSASC #### [facility] [address] [address] [address] Cole Echeverria CBC AUTO DIFFon 06-22-2022 BASO # 0.0 103/ul Normal 0.0-0.1 [facility] Comment on above: Performed By: #### T SH, FT3 #### [facility] [address] [place] [address] Dr. Cole Echeverria Basophils/100 WBC (Bld) 0.2 % Normal 0.2-2.0 [facility] Comment on above: Performed By: #### T SH, FT3 #### [facility] [address] [place] [address] Dr. Cole Echeverria EO # 0.3 103/ul Normal 0.0-0.7 [facility] Comment on above: Performed By: #### T SH, FT3 #### [facility] [address] [place] [address] Dr. Cole Echeverria Eosinophils/100 WBC (Bld) 2.8 % Normal 0.9-7.0 [facility] Comment on above: Performed By: #### T SH, FT3 #### [facility] [address] [place] [address] Dr. Cole Echeverria Erythrocyte distribution width (RBC) [Ratio] 14.5 % Normal 11.0-15.0 [facility] Comment on above: Performed By: #### T SH, FT3 #### [facility] [address] [place] [address] Dr. Cole Echeverria Hematocrit (Bld) [Volume fraction] 41.4 % Critically low 42.0-54.0 [facility] Comment on above: Performed By: #### T SH, FT3 #### [facility] [address] [place] [address] Dr. Cole Echeverria Hemoglobin (Bld) [Mass/Vol] 13.2 g/dL Critically low 14.0-18.0 [facility] Comment on above: Performed By: #### T SH, FT3 #### [facility] [address] [place] [address] Dr. Cole Echeverria IG # 0.05 10e3/ul Critically high 0.00-0.03 [facility] Comment on above: Performed By: #### T SH, FT3 #### [facility] [address] [place] [address] Dr. Cole Echeverria IG % 0.4 % Normal 0.0-0.5 [facility] Comment on above: Performed By: #### T SH, FT3 #### [facility] [address] [place] [address] Dr. Cole Echeverria LYMPH # 1.8 103/ul Normal 1.2-3.[address] [facility] Comment on above: Performed By: #### T SH, FT3 #### [facility] [address] [place] [address] Dr. Cole Echeverria Lymphocytes/100 WBC (Bld) 14.7 % Critically low 20.5-60.[address] [facility] Comment on above: Performed By: #### T SOPHIE, FT3 #### [facility] [address] [place] [address] Dr. Cole Echeverria MANUAL DIFF REQ NO Normal [facility] Comment on above: Performed By: #### T SOPHIE, FT3 #### [facility] [address] [place] [address] Dr. Cole Echeverria MCH (RBC) [Entitic mass] 29.8 pg Normal 25.9-34.[address] [facility] Comment on above: Performed By: #### T SOPHIE, FT3 #### [facility] [address] [place] [address] Dr. Cole Echeverria MCHC (RBC) [Mass/Vol] 31.9 g/dL Normal 29.9-35.[address] [facility] Comment on above: Performed By: #### T SOPHIE, FT3 #### [facility] [address] [place] [address] Dr. Coel Echeverria MCV (RBC) [Entitic vol] 93.5 fL Normal 80.0-94.[address] [facility] Comment on above: Performed By: #### T SH, FT3 #### [facility] [address] [place] [address] Dr. Cole Echeverria MONO # 0.7 103/ul Normal 0.3-0.[address] [facility] Comment on above: Performed By: #### T SOPHIE, FT3 #### [facility] [address] [place] [address] Dr. Cole Echeverria Monocytes/100 WBC (Bld) 6.1 % Normal 1.7-12.[address] [facility] Comment on above: Performed By: #### T SH, FT3 #### [facility] [address] [place] [address] Dr. Cole Echeverria NEUT # 9.2 103/ul Critically high 1.4-6.5 [facility] Comment on above: Performed By: #### T SH, FT3 #### [facility] [address] [place] [address] Dr. Cole Echeverria Neutrophils/100 WBC (Bld) 75.8 % Critically high 43.0-75.0 [facility] Comment on above: Performed By: #### T SH, FT3 #### [facility] [address] [place] [address] Dr. Cole Echeverria Platelet mean volume (Bld) [Entitic vol] 10.2 fL Normal 9.5-13.5 [facility] Comment on above: Performed By: #### T SH, FT3 #### [facility] [address] [place] [address] Dr. Cole Echeverria PLT 185 103/ul Normal 150-[address] [facility] Comment on above: Performed By: #### T SH, FT3 #### [facility] [address] [place] [address] Dr. Cole Echeverria RBC 4.43 106/ul Critically low 4.70-6.10 [facility] Comment on above: Performed By: #### T SH, FT3 #### [facility] [address] [place] [address] Dr. Cole Echeverria WBC 12.1 103/ul Critically high 4.0-11.0 [facility] Comment on above: Performed By: #### T SH, FT3 #### [facility] [address] [place] [address] Dr. Cole Echeverria [facility]05 SARS-CoV-2 (COVID-19) RNA HALEIGH+probe Ql (Unsp spec) Not detected Normal NOT DETECTED [facility] Comment on above: Result Comment: When diagnostic testing is negative, the possibility of a false negative should be considered in the context of a patient's recent exposures and the presence of clinical signs and symptoms consistent with SARS-CoV-2. This test is not yet approved or cleared by the [place] FDA. When there are no FDA-approved or cleared tests available, and other criteria are met, FDA can make tests available under an emergency access mechanism called an Emergency Use Authorization (EUA). The EUA for this test is supported by the [employer] of Health and Human Service's declaration that circumstances exist to justify the emergency use of in vitro diagnostics for the detection and/or diagnosis of the virus that causes COVID-19. This EUA will remain in effect for the duration of the COVID-19 declaration justifying emergency of IVDs, unless it is terminated or revoked by the FDA (after which the test may no longer be used). Performed By: #### C VDTBH #### [facility] [address] [address] [address] Cole Echeverria D-DIMERon 06-22-2022 D-DIMER 15.71 mg/L FEU Critically high <=0.59 [facility] Comment on above: Performed By: #### F T4, PSASC #### [facility] [address] [address] [address] Cole Echeverria D-DIMER COMMENTS SEE BELOW Normal [facility] [place] Comment on above: Result Comment: Incr eases in D-Dimer concentration observed with thromboembolic events can be variable due to localization, size, and age of the thrombus. Therefore, a thromboembolic event cannot be diagnosed with certainty on the basis of the reference range. D-Dimers may also be elevated for a variety of disorders including: advanced age, , coronary disease, cancer, liver disease, infection, inflammation, hematoma, DIC, trauma, post-surgery, diabetes, thrombolytic or anticoagulant therapy, stress, and generalized hospitalization. Performed By: #### F T4, PSASC #### [facility] [address] [address] [address] Cole Echeverria PROF 14(COMP METB)on 08-18-2 022 Albumin [Mass/Vol] 2.9 g/dL Critically low 3.4-5.[address] [facility] Comment on above: Performed By: #### F T4, PSASC #### [facility] [address] [address] [address] Cole Echeverria Albumin/Globulin [Mass ratio] 0.7 {ratio} Normal [facility] Comment on above: Performed By: #### F T4, PSASC #### [facility] [address] [address] [address] Cole Echeverria ALP [Catalytic activity/Vol] 89 U/L Normal 46-116 [facility] Comment on above: Performed By: #### F T4, PSASC #### [facility] [address] [place] [address] Dr. Cole Echeverria ALT [Catalytic activity/Vol] 21 U/L Normal 16-63 [facility] Comment on above: Performed By: #### F T4, PSASC #### [facility] [address] [place] [address] Dr. Cole Echeverria Anion gap [Moles/Vol] 11.8 mmol/L Normal [facility] Comment on above: Performed By: #### F T4, PSASC #### [facility] [address] [place] [address] Dr. Cole Echeverria AST [Catalytic activity/Vol] 19 U/L Normal 15-37 [facility] Comment on above: Performed By: #### F T4, PSASC #### [facility] [address] [address] [address] Cole Echeverria Bilirubin [Mass/Vol] 0.8 mg/dL Normal 0.2-1.0 [facility] Comment on above: Performed By: #### F T4, PSASC #### [facility] [address] [place] [address] Dr. Cole Echeverria Calcium [Mass/Vol] 9.0 mg/dL Normal 8.5-10.1 [facility] Comment on above: Performed By: #### F T4, PSASC #### [facility] [address] [place] [address] Dr. Cole Echeverria Chloride [Moles/Vol] 101 mmol/L Normal 98-107 [facility] Comment on above: Performed By: #### F T4, PSASC #### [facility] [address] [place] [address] Dr. Cole Echeverria CO2 [Moles/Vol] 29.3 mmol/L Normal 21.0-32.0 [facility] Comment on above: Performed By: #### F T4, PSASC #### [facility] [address] [place] [address] Dr. Cole Echeverria Creatinine [Mass/Vol] 2.25 mg/dL Critically high 0.70-1.30 [facility] Comment on above: Performed By: #### F T4, PSASC #### [facility] [address] [place] [address] Dr. Cole Echeverria EGFR-AF MONEGASQUE 35 mL/min/1.73m2 Critically low >=60 [facility] Comment on above: Performed By: #### F T4, PSASC #### [facility] [address] [place] [address] Dr. Cole Echeverria EGFR-NON AF MONEGASQUE 29 mL/min/1.73m2 Critically low >=60 [facility] Comment on above: Performed By: #### F T4, PSASC #### [facility] [address] [place] [address] Dr. Cole Echeverria Globulin (S) [Mass/Vol] 4.3 g/dL Normal [facility] Comment on above: Performed By: #### F T4, PSASC #### [facility] [address] [place] [address] Dr. Cole Echeverria Glucose [Mass/Vol] 116 mg/dL Critically high 74-106 [facility] Comment on above: Performed By: #### F T4, PSASC #### [facility] [address] [place] [address] Dr. Cole Echeverria Potassium [Moles/Vol] 5.1 mmol/L Normal 3.5-5.1 [facility] Comment on above: Performed By: #### F T4, PSASC #### [facility] [address] [place] [address] Dr. Cole Echeverria Protein [Mass/Vol] 7.2 g/dL Normal 6.4-8.2 [facility] Comment on above: Performed By: #### F T4, PSASC #### [facility] [address] [place] [address] Dr. Cole Echeverria Sodium [Moles/Vol] 137 mmol/L Normal 136-145 [facility] Comment on above: Performed By: #### F T4, PSASC #### [facility] [address] [place] [address] Dr. Cole Echeverria Urea nitrogen [Mass/Vol] 49.0 mg/dL Critically high 7.0-18.0 [facility] Comment on above: Performed By: #### F T4, PSASC #### [facility] [address] [place] [address] Dr. Cole Echeverria Urea nitrogen/Creatinine [Mass ratio] 21.8 mg/mg Normal [facility] Comment on above: Performed By: #### F T4, PSASC #### [facility] [address] [place] [address] Dr. Cole Echeverria PROTIMEon 06-22-2022 INR Coag (PPP) [Relative time] 1.06 {INR} Normal [facility] Comment on above: Performed By: #### T SH, FT3 #### [facility] [address] [place] [address] Dr. Cole Echeverria INR GUIDELINES SEE BELOW Normal [facility] Comment on above: Result Comment: MÓNICA RED INR: 2.0 - 3.0 CONDITIONS NOT LISTED BELOW 2.5 - 3.5 FOR PROSTHETIC HEART VALVE REPLACEMENT 2.5 - 3.5 RECURRENT THROMBOSIS Performed By: #### T SH, FT3 #### [facility] [address] [place] [address] Dr. Cole Echeverria PT Coag (PPP) [Time] 11.4 s Normal 9.0-11.6 [facility] Comment on above: Performed By: #### T SH, FT3 #### [facility] [address] [place] [address] Dr. Cole Echeverria PTTon 06-22-2022 aPTT Coag (Bld) [Time] 33.9 s Normal 22.3-36.[address] [facility] Comment on above: Performed By: #### T SH, FT3 #### [facility] [address] [address] [address] Cole Echeverria TROPONIN, HIGH SENSITIVITYon 06-22-2022 HSTROP 345.5 pg/mL Critically high 4.0-76.1 [facility] Comment on above: Result Comment: CUT- OFF POINTS HAVE BEEN ESTABLISHED BASED ON THE FOURTH UNIVERSAL DEFINITIONS OF MYOCARDIAL INFARCTION. THE UPPER REFERENCE LIMIT (URL) OF TROPONIN, DEFINED THE 99TH PERCENTILE OF cTnI DISTRIBUTION IN A REFERENCE POPULATION, HAS BEEN CONFIRMED THE DECISION THRESHOLD FOR WI DIAGNOSIS. Performed By: #### F T4, PSASC #### [facility] [address] [address] [address] Cole Echeverria US JUAREZ DOP LEG BILon 022 US JUAREZ DOP LEG LISA EXAMINATION: US JUAREZ DOP LEG LISA HISTORY: SHORTNESS OF BREATH COMPARISON: No relevant comparison available. FINDINGS: REGION: Bilateral lower extremities THROMBI: Occlusive thrombus within right great saphenous vein. Nonocclusive thrombus within the left mid femoral vein extending to popliteal vein. COMPRESSIBILITY: Noncompressible segments. FLOW: Continued flow within left femoral vein. OTHER: None. IMPRESSION: 1. Deep vein thrombus within the left lower extremity extending from the mid femoral vein to popliteal vein; nonocclusive. 2. Superficial vein thrombosis involving right lower extremity great saphenous vein. Electronically authenticated by: LAYO DAVISON Date: 2022-06-22 19:37 Normal [facility] XR CHEST 1 Von 06-22-2022 XR CHEST 1 V ONE-VIEW CHEST RADIOGRAPH, 06/22/2022 4:32 PM EDT COMPARISON: None. CLINICAL HISTORY: SHORTNESS OF BREATH Findings and impression: 1. Borderline pulmonary venous hypertension/pulmonar y vascular congestion. 2. Borderline heart size. 3. No acute osseous abnormality. Electronically authenticated by: Richard PATRICIA Date: 2022-06-22 17:48 Normal [facility] CBC AUTO DIFFon 04-05-2022 BASO # 0.0 103/ul Normal 0.0-0.[address] [facility] Comment on above: Performed By: #### T SH, FT3 #### [facility] [address] [place] [address] Dr. Cole Echeverria Basophils/100 WBC (Bld) 0.4 % Normal 0.2-2.[address] [facility] Comment on above: Performed By: #### T SH, FT3 #### [facility] [address] [place] [address] Dr. Cole Echeverria EO # 0.2 103/ul Normal 0.0-0.[address] [facility] Comment on above: Performed By: #### T SOPHIE, FT3 #### [facility] [address] [place] [address] Dr. Cole Echeverria Eosinophils/100 WBC (Bld) 2.3 % Normal 0.9-7.[address] [facility] Comment on above: Performed By: #### T SOPHIE, FT3 #### [facility] [address] [place] [address] Dr. Cole Echeverria Erythrocyte distribution width (RBC) [Ratio] 13.0 % Normal 11.0-15.[address] [facility] Comment on above: Performed By: #### T SOPHIE, FT3 #### [facility] [address] [place] [address] Dr. Cole Echeverria Hematocrit (Bld) [Volume fraction] 45.7 % Normal 42.0-54.0 [facility] Comment on above: Performed By: #### T SOPHIE, FT3 #### [facility] [address] [place] [address] Dr. Cole Echeverria Hemoglobin (Bld) [Mass/Vol] 14.4 g/dL Normal 14.0-18.[address] [facility] Comment on above: Performed By: #### T SH, FT3 #### [facility] [address] [place] [address] Dr. Cole Echeverria IG # 0.02 10e3/ul Normal 0.00-0.[address] [facility] Comment on above: Performed By: #### T SOPHIE, FT3 #### [facility] [address] [address] [address] Cole Echeverria IG % 0.3 % Normal 0.0-0.[address] [facility] Comment on above: Performed By: #### T SH, FT3 #### [facility] [address] [place] [address] Dr. Cole Echeverria LYMPH # 1.8 103/ul Normal 1.2-3.[address] [facility] Comment on above: Performed By: #### T SH, FT3 #### [facility] [address] [place] [address] Dr. Cole Echeverria Lymphocytes/100 WBC (Bld) 22.6 % Normal 20.5-60.[address] [facility] Comment on above: Performed By: #### T SOPHIE, FT3 #### [facility] [address] [place] [address] Dr. Cole Echeverria MANUAL DIFF REQ NO Normal [facility] Comment on above: Performed By: #### T SOPHIE, FT3 #### [facility] [address] [place] [address] Dr. Cole Echeverria MCH (RBC) [Entitic mass] 31.1 pg Normal 25.9-34.[address] [facility] Comment on above: Performed By: #### T SOPHIE, FT3 #### [facility] [address] [place] [address] Dr. Cole Echeverria MCHC (RBC) [Mass/Vol] 31.5 g/dL Normal 29.9-35.[address] [facility] Comment on above: Performed By: #### T SH, FT3 #### [facility] [address] [place] [address] Dr. Cole Echeverria MCV (RBC) [Entitic vol] 98.7 fL Critically high 80.0-94.[address] [facility] Comment on above: Performed By: #### T SH, FT3 #### [facility] [address] [place] [address] Dr. Cole Echeverria MONO # 0.5 103/ul Normal 0.3-0.[address] [facility] Comment on above: Performed By: #### T SOPHIE, FT3 #### [facility] [address] [place] [address] Dr. Cole Echeverria Monocytes/100 WBC (Bld) 5.7 % Normal 1.7-12.[address] [facility] Comment on above: Performed By: #### T SH, FT3 #### [facility] [address] [place] [address] Dr. Cole Echeverria NEUT # 5.4 103/ul Normal 1.4-6.5 [facility] Comment on above: Performed By: #### T SH, FT3 #### [facility] [address] [place] [address] Dr. Cole Echeverria Neutrophils/100 WBC (Bld) 68.7 % Normal 43.0-75.[address] [facility] Comment on above: Performed By: #### T SH, FT3 #### [facility] [address] [place] [address] Dr. Cole Echeverria Platelet mean volume (Bld) [Entitic vol] 11.2 fL Normal 9.5-13.5 [facility] Comment on above: Performed By: #### T SH, FT3 #### [facility] [address] [place] [address] Dr. Cole Echeverria PLT 242 103/ul Normal 150-[address] [facility] Comment on above: Performed By: #### T SH, FT3 #### [facility] [address] [place] [address] Dr. Cole Echeverria RBC 4.63 106/ul Critically low 4.70-6.10 [facility] Comment on above: Performed By: #### T SH, FT3 #### [facility] [address] [place] [address] Dr. Cole Echeverria WBC 7.8 103/ul Normal 4.0-11.[address] [facility] Comment on above: Performed By: #### T SH, FT3 #### [facility] [address] [place] [address] Dr. Cole Echeverria FREE T3on 04-05-2022 FREE T3 1.39 pg/mlL Critically low 2.18-3.98 [facility] Comment on above: Performed By: #### B MP, ALT, AST, TSH, FT3, LIPID #### [facility] [address] [address] [address] Cole Echeverria FREE T4on 04-05-2022 Free T4 [Mass/Vol] 1.47 ng/dL Critically high 0.76-1.46 [facility] Comment on above: Performed By: #### F T4, PSASC #### [facility] [address] [address] [address] Cole Echeverria GLYCOHEMOGLOBIN A1Con 2021 ADA RECOMMENDATION SEE BELOW Normal [facility] Comment on above: Result Comment: ADA RECOMMENDED LIMIT 4.0 - 6.0 ADA THERAPEUTIC TARGET < 7.0 ACTION SUGGESTED > 7.0 Performed By: #### T SH, FT3 #### [facility] [address] [place] [address] Dr. Cole Echeverria Glucose [Mass/Vol] 103 mg/dL Normal [facility] Comment on above: Performed By: #### T SH, FT3 #### [facility] [address] [place] [address] Dr. Cole Echeverria HbA1c (Bld) [Mass fraction] 5.2 % Normal 4.5-6.2 [facility] Comment on above: Performed By: #### T SH, FT3 #### [facility] [address] [place] [address] Dr. Cole Echeverria LIPID PROFILEon 04-05-2022 CHOL-HDL RATIO NORM SEE BELOW Normal [facility] Comment on above: Result Comment: 3.3 - 4.4 LOW RISK 4.4 - 7.1 AVERAGE RISK 7.1 - 11.0 MODERATE RISK >11.0 HIGH RISK Performed By: #### T SH, FT3 #### [facility] [address] [place] [address] Dr. Cole Echeverria Cholesterol [Mass/Vol] 251 mg/dL Critically high <=200 [facility] Comment on above: Performed By: #### T SH, FT3 #### [facility] [address] [place] [address] Dr. Cole Echeverria Cholesterol in HDL [Mass/Vol] 36 mg/dL Critically low 40-60 [facility] Comment on above: Performed By: #### T SH, FT3 #### [facility] [address] [place] [address] Dr. Cole Echeverria Cholesterol in LDL [Mass/Vol] 189.8 mg/dL Normal [facility] Comment on above: Performed By: #### T SH, FT3 #### [facility] [address] [place] [address] Dr. Cole Echeverria Cholesterol.total/Ch olesterol in HDL [Mass ratio] 7.0 {ratio} Normal [facility] Comment on above: Performed By: #### T SH, FT3 #### [facility] [address] [place] [address] Dr. Cole Echeverria HDL NORMAL > or = 60 mg/dl - LO W CARDIOVASCULAR RISK <40 mg/dl - HIGH CARDIOVASCULAR RISK Normal [facility] Comment on above: Performed By: #### T SH, FT3 #### [facility] [address] [place] [address] Dr. Cole Echeverria LDL CALC NORMAL SEE BELOW Normal [facility] Comment on above: Result Comment: <100 mg/dl OPTIMAL 100 - 129 mg/dl NEAR OR ABOVE OPTIMAL 130 - 159 mg/dl BORDERLINE HIGH 160 - 189 mg/dl HIGH >190 mg/dl VERY HIGH Performed By: #### T SH, FT3 #### [facility] [address] [place] [address] Dr. Cole Echeverria Triglyceride [Mass/Vol] 126 mg/dL Normal <=[address] [facility] Comment on above: Performed By: #### T SH, FT3 #### [facility] [address] [place] [address] Dr. Cole Echeverria VLDL CALC 25.2 mg/dL Normal [facility] Comment on above: Performed By: #### T SH, FT3 #### [facility] [address] [place] [address] Dr. Cole Echeverria PROF CHEM 8 (BAS METB)on Anion gap [Moles/Vol] 11.8 mmol/L Normal [facility] [facility] Comment on above: Performed By: #### B MP, ALT, AST, TSH, FT3, LIPID #### [facility] [address] [address] [address] Cole Echeverria Calcium [Mass/Vol] 8.9 mg/dL Normal 8.5-10.1 [facility] Comment on above: Performed By: #### B MP, ALT, AST, TSH, FT3, LIPID #### [facility] [address] [address] [address] Cole Echeverria Chloride [Moles/Vol] 104 mmol/L Normal 98-107 [facility] Comment on above: Performed By: #### B MP, ALT, AST, TSH, FT3, LIPID #### [facility] [address] [place] [address] Dr. Cole Echeverria CO2 [Moles/Vol] 29.9 mmol/L Normal 21.0-32.0 [facility] Comment on above: Performed By: #### B MP, ALT, AST, TSH, FT3, LIPID #### [facility] [address] [place] [address] Dr. Cole Echeverria Creatinine [Mass/Vol] 1.35 mg/dL Critically high 0.70-1.30 [facility] Comment on above: Performed By: #### B MP, ALT, AST, TSH, FT3, LIPID #### [facility] [address] [place] [address] Dr. Cole Echeverria EGFR-AF MONEGASQUE >60 Normal >=60 [facility] [place] Comment on above: Performed By: #### B MP, ALT, AST, TSH, FT3, LIPID #### [facility] [address] [place] [address] Dr. Cole Echeverria EGFR-NON AF MONEGASQUE 52 mL/min/1.73m2 Critically low >=[address] [facility] Comment on above: Performed By: #### B MP, ALT, AST, TSH, FT3, LIPID #### [facility] [address] [place] [address] Dr. Cole Echeverria Glucose [Mass/Vol] 91 mg/dL Normal 74-106 [facility] Comment on above: Performed By: #### B MP, ALT, AST, TSH, FT3, LIPID #### [facility] [address] [place] [address] Dr. Cole Echeverria Potassium [Moles/Vol] 4.7 mmol/L Normal 3.5-5.1 [facility] Comment on above: Performed By: #### B MP, ALT, AST, TSH, FT3, LIPID #### [facility] [address] [place] [address] Dr. Cole Echeverria Sodium [Moles/Vol] 141 mmol/L Normal 136-145 [facility] Comment on above: Performed By: #### B MP, ALT, AST, TSH, FT3, LIPID #### [facility] [address] [place] [address] Dr. Cole Echeverria Urea nitrogen [Mass/Vol] 35.0 mg/dL Critically high 7.0-18.0 [facility] Comment on above: Performed By: #### B MP, ALT, AST, TSH, FT3, LIPID #### [facility] [address] [place] [address] Dr. Cole Echeverria Urea nitrogen/Creatinine [Mass ratio] 25.9 mg/mg Normal [facility] Comment on above: Performed By: #### B MP, ALT, AST, TSH, FT3, LIPID #### [facility] [address] [place] [address] Dr. Cole CESAROTotawnya 04-05-2022 AST [Catalytic activity/Vol] 31 U/L Normal 15-37 [facility] Comment on above: Performed By: #### T SH, FT3 #### [facility] [address] [place] [address] Dr. Cole Echeverria SGPTon 04-05-2022 ALT [Catalytic activity/Vol] 26 U/L Normal 16-63 [facility] Comment on above: Performed By: #### B MP, ALT, AST, TSH, FT3, LIPID #### [facility] [address] [place] [address] Dr. Cole Echeverria TSHon 04-05-2022 TSH 0.944 uIU/mL Normal 0.358-3.740 [facility] Comment on above: Performed By: #### B MP, ALT, AST, TSH, FT3, LIPID #### [facility] [address] [place], [place] [address] Dr. Cole Echeverria TSH RANGE SEE BELOW Normal [facility] Comment on above: Result Comment: <0.3 4 UIU/ml HYPERTHYROID 0.34-5.60 UIU/ml EUTHYROID >5.60 UIU/ml HYPOTHYROID Performed By: #### B MP, ALT, AST, TSH, FT3, LIPID #### [facility] [id number] Cole Echeverria US SCROTUMon 02-27-2022 US SCROTUM EXAMINATION: US SCROTUM HISTORY: Right lower quadrant pain COMPARISON: No relevant comparison available. TECHNIQUE: High-resolution sonographic imaging of the scrotum and contents was performed. FINDINGS: The right testicle is normal in size, contour and homogeneous echotexture measuring 3.1 x 2.0 x 1.9 cm. No focal mass. Normal color and Doppler flow. The right epididymis is normal in size. Cystic area measuring 0.8 x 0.7 x 0.8 cm spermatocele versus small cyst. The left testicle is normal in size, contour and homogeneous echotexture measuring 3.2 x 2.6 x 2.2 cm. 2 mm echogenic focus, calcification favored. No focal mass. Normal color Doppler flow. The left epididymis is normal in appearance. No hydrocele or varicocele. IMPRESSION: No acute abnormality. No undescended testes observed 8 mm right epididymal cyst versus spermatocele Electronically authenticated by: ANETTE GAMBOA Date: 2022-02-27 08:[address] [facility] Vital Signs Date Time Vital Sign Value Performing Clinician Facility 01-04-2023 11:33-0500 Body height 180.34 cm Jorge Camejo Work Phone: [facility] 250 DO Work Phone: 01-04-2023 11:33-0500 Body mass index (BMI) [Ratio] 49.51 kg/m2 Jorge A Naderer Work Phone: [facility] [place] 250 DO Work Phone: 01-04-2023 11:33-0500 Body surface area Derived from formula 2.69 m2 Jorge Masters Naderer Work Phone: [facility] [place] 250 DO Work Phone: 01-04-2023 11:33-0500 Body weight 161.03 kg Jorge Masters Naderer Work Phone: [facility] [place] 250 DO Work Phone: 01-04-2023 11:33-0500 Diastolic blood pressure 70 mm[Hg] Jorge Masters Naderer Work Phone: [facility] [place] 250 DO Work Phone: 01-04-2023 11:33-0500 Heart rate 64 /min Jorge Masters Naderer Work Phone: [facility] [place] 250 DO Work Phone: 01-04-2023 11:33-0500 Systolic blood pressure 136 mm[Hg] Jorge Xieerer Work Phone: [facility] [employer] 250 DO Work Phone: 10-12-2022 14:00-0500 Body height 180.34 cm Oscar Walters Other [employer] Other 10-12-2022 14:00-0500 Body mass index (BMI) [Ratio] 49.67 kg/m2 Oscar Walters Other [employer] Other 10-12-2022 14:00-0500 Body temperature 96.3 [degF] Oscar Walters Other [employer] Other 10-12-2022 14:00-0500 Body weight 161.57 kg Oscar Walters Other [employer] Other 10-12-2022 14:00-0500 Diastolic blood pressure 73 mm[Hg] Oscar Walters Other [employer] Other 10-12-2022 14:00-0500 Respiratory rate 20 /min Oscar Walters Other [employer] Other 10-12-2022 14:00-0500 SaO2% (BldA) [Mass fraction] 95 % Oscar Walters Other [employer] Other 10-12-2022 14:00-0500 Systolic blood pressure 126 mm[Hg] Oscar Walters Other [employer] Other 08-31-2022 17:40-0400 Body height 180.34 cm Oscar Walters Other [employer] Other 08-31-2022 17:40-0400 Body mass index (BMI) [Ratio] 48.98 kg/m2 Oscar Walters Other [employer] Other 08-31-2022 17:40-0400 Body temperature 96.4 [degF] Oscar Walters Other [employer] Other 08-31-2022 17:40-0400 Body weight 159.3 kg Oscar Walters Other [employer] Other 08-31-2022 17:40-0400 Diastolic blood pressure 82 mm[Hg] Oscar Walters Other [employer] Other 08-31-2022 17:40-0400 Respiratory rate 20 /min Oscar Walters Other [employer] Other 08-31-2022 17:40-0400 SaO2% (BldA) [Mass fraction] 97 % Oscar Walters Other [employer] Other 08-31-2022 17:40-0400 Systolic blood pressure 144 mm[Hg] Oscar Walters Other [employer] Other 07-12-2022 11:36-0400 Body height 180.34 cm Jorge A Naderer Work Phone: [facility] [employer] [facility] DO Work Phone: 07-12-2022 11:36-0400 Body mass index (BMI) [Ratio] 51.05 kg/m2 Jorge A Naderer Work Phone: [facility] [employer] 250 DO Work Phone: 07-12-2022 11:36-0400 Body surface area Derived from formula 2.73 m2 Jorge A Naderer Work Phone: [facility] [employer] 250 DO Work Phone: 07-12-2022 11:36-0400 Body weight 166.02 kg Jorge A Naderer Work Phone: [facility] [employer] 250 DO Work Phone: 07-12-2022 11:36-0400 Diastolic blood pressure 70 mm[Hg] Jorge [facility]: [facility] [place] 250 DO Work Phone: 07-12-2022 11:36-0400 Heart rate 100 /min Jorge A Naderer Work Phone: [facility] DO Work Phone: 07-12-2022 11:36-0400 Systolic blood pressure 110 mm[Hg] Jorge Camejo Work Phone: [facility] 250 DO Work Phone: 06-22-2022 00:00-0400 65 1 Jorge Camejo Work Phone: [facility] 250 DO Work Phone: Comment on above: [id number] Encounters Encounter Date Encounter Type Care Provider Facility Start: 11-14-2023 End: 11-14-2023 ambulatory MARIE SALCEDO Not Available Start: 10-03-2023 End: 10-03-2023 ambulatory MARIE SALCEDO Not Available Start: 05-03-2023 ambulatory JAVIER WALLIS . Facility: Start: 01-25-2023 End: 01-26-[address] JORGE CAMEJO Facility:[facility] Start: 01-04-2023 Office outpatient visit 25 minutes Jorge Camejo Work Phone: [facility] 250 DO Work Phone: Start: 01-04-2023 ambulatory Jorge Feliciano y: Start: 12-07-2022 End: 12-08-[address] JORGE CAMEJO Facility:[facility] Start: 12-04-2022 End: 12-04-2022 ambulatory Oscar Walters Other [employer] Other Start: 12-04-2022 Telephone encounter Oscar Walters [facility] Start: 10-12-2022 End: 10-12-2022 ambulatory Oscar Walters Other [employer] Other Start: 10-12-2022 Office outpatient visit 25 minutes Oscar Walters [facility] Start: 10-03-2022 End: 10-04-[address] JORGE CAMEJO Facility:[facility] Start: 09-14-2022 End: 09-15-[address] JORGE CAMEJO Facility:[facility] Start: 09-04-2022 End: 09-04-2022 ambulatory Oscar Walters Other [facility] [email or web address] Other Start: 09-04-2022 Telephone encounter Oscar Walters [facility] Start: 08-31-2022 End: 08-31-2022 ambulatory Oscar Walters Other [facility] [email or web address] Other Start: 08-31-2022 Office outpatient visit 25 minutes Oscar Walters [facility] Start: 07-12-2022 End: 07-13-[address] JORGE TREVIÑO Facility:[facility] Start: 07-12-2022 Office outpatient visit 40 minutes Jorge Camejo Work Phone: [facility] 250 DO Work Phone: Start: 07-12-2022 ambulatory Jorge Treviño Facilit y:[id number] Start: 06-24-2022 ambulatory Jorge Treviño Facilit y:[id number] Start: 06-23-2022 ambulatory Jorge Treviño Facilit y:[facility] Start: 06-23-2022 ambulatory Jorge Treviño Facilit y:[id number] Start: 06-23-[address] Jorge Camejo Facility:[id number] Start: 06-23-2022 End: 06-24-2022 Evaluation and management of inpatient Patel Ugarte Facility:[facility] Start: 06-22-2022 End: 06-22-[address] LISA DUDLEY Facility:[facility] Start: 06-15-2022 End: 06-16-[address] HUNTER MCLEAN . Facility:[facility] Start: 04-05-2022 End: 04-06-[address] JORGE CAMEJO Facility:[facility] Start: 03-30-2022 End: 03-31-[address] HUNTER MCLEAN . Facility:[facility] Start: 02-24-2022 End: 02-25-[address] JORGE CAMEJO Facility:[facility] Start: 02-16-2022 End: 02-17-[address] HUNTER MCLEAN . Facility:[facility] Start: 07-25-2018 End: 07-26-2018 Patient encounter DEFAULT PHYSICIAN Facility:[facility] Procedures Date Procedure Procedure Detail Performing Clinician Start: 04-05-[address] JORGE HILTON Comment on above: Performed By: #### F T4, PSASC #### [facility] [address] [place] [address] Dr. Cole Echeverria Arthroscopy of knee Jorge hilton Work Phone: Colonoscopy Jorge Camejo Work Phone: Removal of thrombus Jorge hilton Work Phone: Plan of Treatment Date Care Activity Detail Author Start: 01-17-2024 FUV, Provider: Jorge Treviño, Status: Pen, Time: 11:20 AM [facility], Provider: Jorge Treviño, Status: Pen, Time: 11:20 AM [facility] 250 DO Work Phone: Start: 01-11-2023 FUV, Provider: Jorge Treviño, Status: Pen, Time: 11:10 AM [facility], Provider: Jorge Treviño, Status: Pen, Time: 11:10 AM [facility] [place] 250 DO Work Phone: Immunizations Immunization Date Immunization Notes Care Provider Maria A hernandez 10-01-2022 Fluad Quadrivalent 0 .5 ML Intramuscular Prefilled Syringe [facility]amejo [facility] Work Phone: 10-19-2021 Pfizer-BioNTech COVI D-19 Vacc 30 MCG/0.3ML Intramuscular Suspension Jorge Camejo Work Phone: [facility] 250 DO Work Phone: 07-06-2021 influenza, seasonal, injectable Jorge Camejo Work Phone: [facility] 250 DO Work Phone: Comment on above: Series: 01-11-2021 Moderna COVID-19 Vac cine 100 MCG/0.5ML Intramuscular Suspension Jorge Camejo Work [facility]: [facility] Work Phone: 12-14-2020 Moderna COVID-19 Vac cine 100 MCG/0.5ML Intramuscular Suspension Jorge Camejo Work [facility]: [facility] Work Phone: 08-05-2015 pneumococcal polysaccharide vaccine, 23 valent Jorge Camejo Work Phone: [facility] 250 DO Work Phone: Payers Date Payer Category Payer Self-pay 1958 Medicare [id number] 2.1 [id number] 1958 Medicare [id number] 1958 Unknown [id number] 2. [id number] 1946 Unknown [id number] 2.16. [id number] 1946 Unknown [id number] 2.16. 840.1.799166.3.579.2.356 1946 Unknown [id number] 2.16. 840.1.054716.3.579.2.356 1946 Unknown [id number] 2.16. 840.1.237349.3.579.2.356 1946 Unknown [id number] 2.16. 840.1.305014.3.579.2.356 1946 Unknown [id number] 2.16.84 0.1.462055.3.579.2.593 1946 Unknown [id number] 2.16.84 0.1.715662.3.579.2.593 1946 Unknown [id number] 2.16.84 0.1.128662.3.579.2.593 1946 Unknown [id number] 2.16.84 0.1.325563.3.579.2.593 1946 Unknown [id number] 2.16.84 0.1.418640.3.579.2.593 1946 Unknown [id number] 2.16.84 0.1.675067.3.579.2.593 1946 Unknown [id number] 2.16.84 0.1.238994.3.579.2.593 1946 Unknown [id number] 2.16.84 0.1.897066.3.579.2.593 1946 Unknown [id number] 2.16.84 0.1.280744.3.579.2.593 1946 Unknown [id number] 2.16.84 0.1.907098.3.579.2.593 1946 Unknown [id number] 2.16.84 0.1.626344.3.579.2.593 1946 Unknown [id number] 2.16.84 0.1.928060.3.579.2.593 1946 Unknown [id number] 2.16.84 0.1.097448.3.579.2.1259 1946 Unknown [id number] 2.16.840 .1.277050.3.579.2.1259 Unknown Unknown [id number] 2.16.8 40.1.442611.3.579.2.531 Social History Date Type Detail Facility No alcohol use No alcohol use [facility] 250 DO Work Phone: Sex Assigned At Sex Assigned At [employer] Other NEGATED: Highlighted row Denies Caffeine use Denies Caffeine use [facility] 250 DO Work Phone: Consultation note 01-25-2023 Note Date & Type Note Facility 03-23-2023 Note CONSULTATION CONSULTATION DATE: 01/25/2023 TO: Dr. Camejo HISTORY: Patient returns today complaining of 5-7/10 pain in his lower back occurring bilaterally. He describes the pain as being sharp in character, increased with activities such as standing, walking and performing transitioning maneuvers. Denies any change in bowel and bladder habits or new sensorimotor changes in the lower extremities. He reports the pain in his lower back, again, does increase with ambulation, with the patient developing mild weakness of the lower extremities after ambulating. He is able to ambulate further with some walking assistance, such as the use of a cane or leaning forward on a cart. He feels most comfortable in the semi-recumbent position. EXAMINATION: His examination is notable for patient having some weakness to the iliopsoas muscle bilaterally and his quadriceps. He has bilateral depressed patellar reflex. Straight leg raise is negative. He had nothing to suggest myelopathy or radiculopathy involving his lower extremities on today's visit. IMPRESSION: Our impression is patient appears to have chronic pain secondary to stable spinal stenosis. RECOMMENDATIONS: At this point, I recommend no further intervention for his pain symptoms. I have recommended he undergo a lumbosacral MRI since he was found, what appears to be, a fair amount of weakness of his quadriceps and iliopsoas muscle, which may be suggestive of progressive spinal stenosis. Will obtain urine toxicology screen on today's visit. We have asked him to continue with his current use of Lyrica 75 mg b.i.d. and tramadol 50 mg b.i.d. He reports the tramadol does improve his pain symptoms, quality of life and level of functioning, and denies any side effects. We will see the patient back in the office after he undergoes this imaging study or sooner if needed. [facility] Evaluation note 10-12-2022 Note Date & Type Note Facility 10-12-2022 Evaluation note Encounter Date Diagnosis Assessment Notes Oct, MANISH (acute kidney injury) (ICD-10 - N17.9) Patient had MANISH in the setting of PE and CHF that improved with diuretics. Creatinine is down to 1.13 mg/dL close to the baseline. Patient has minimal CKD if any, considering his large BMI, GFR estimated to be more than 75 to 80 mL/min. Continue current medications including spironolactone and furosemide. Monitor renal function every 6 months or as needed. Patient is high risk for recurrent MANISH considering diuretics, morbid obesity and history of CHF. Oct, Hypertensive chronic kidney disease w stg 1-4/unsp chr kdny (ICD-10 - I12.9) Blood pressure was low at the time of pulmonary embolism however it was increased after that since he has been of lisinopril. Spironolactone was added last visit with improvement of blood pressure. Isinopril that still on hold. We will continue manage hypertension with diuretics since patient has diastolic dysfunction and pulmonary hypertension with recurrent CHF. Oct, Chronic kidney disease, stage 3b (ICD-10 - N18.32) Patient seems to have mild CKD stage 3 that is improving to stage II with control of edema. He has atherosclerotic renovascular disease. He denies history of DM2. He has a history of hypertension and used to be on lisinopril before admission with MANISH. Urine analysis showed minimal lower lobe proteinuria. He has normal phosphorus, calcium and intact PTH. Oct, CHF (congestive heart failure) (ICD-10 - I50.9) Patient has right-sided heart failure in the setting of HEENA and recent PE with pulmonary hypertension. Importance of salt restriction has been addressed. Continue diuretics. Oct, DVT (deep venous thrombosis) (ICD-10 - I82.409) Patient developed DVT while he is traveling and after episode of COVID 19 currently on Xarelto. Oct, PE (pulmonary embolism) (ICD-10 - I26.99) Patient presented with chest pain on June 2022 and he was found to have DVTs and high probability PE on VQ scan. He did refuse intervention with CTA or thrombectomy concerning the MANISH and risk of dialysis as he stated that one of his relatives has been on dialysis after contrast. Patient will be treated conservatively with Xarelto for at least 6 months. Shortness of breath has improved. Patient asks about how long he should be on Xarelto. He never seen pulmonary. PE is being managed by his PCP. I suggest 6 to 9 months since his pulmonary embolism was provoked by travel, COVID 19 and immobility. [employer] Other Consultation note 09-14-2022 Note Date & Type Note Facility 09-14-2022 Note CONSULTATION CONSULTATION DATE: 09/14/2022 HISTORY OF PRESENT ILLNESS: This is a 76-year-old gentleman who returns to the clinic for a three month follow up. He was last seen on 06/15/2022 and, at that time, he was ordered a lumbar epidural steroid injection, and he was just getting over COVID that he [place] summer cruise ship. Patient was unable to move forward with the epidural injection due to difficulty with post COVID PEs and blood clots in the legs. He was in the hospital for a total of three days and has since been placed on Xarelto. Today, he rates his pain a 7/10, which is radiating from lower back, down the buttock and to lower extremities. He is now using a wheeled walker to help ambulate. Activities such as standing, walking, ADLs aggravate his pain. Sitting and lying decrease his pain. He currently does not use heat to his back. Medications include tramadol 50 mg b.i.d. and Lyrica 75 mg b.i.d. Since being placed on the Xarelto, his diclofenac has been discontinued. At this time, he is unable to move forward with the epidural injection with only being on Xarelto for a couple months. He will have to wait a total of 6-8 months in order to be cleared to come off the Xarelto for the epidural injection. Moving forward, we will continue to medically manage him. Patient's REVIEW OF SYSTEMS / PAST MEDICAL HISTORY / ALLERGIES and IMAGES have been reviewed and they are noted on the chart. PHYSICAL EXAM: VITAL SIGNS: Blood pressure 165/76, heart rate is 91. Temperature is 97.7. GENERAL APPEARANCE: He is pleasant, appropriate, no acute distress. FOCUSED EXAM - BACK: Range of motion is guarded in lateral rotation and flexion/extension. Paravertebral muscles are taut but non-spasmodic. Minimal spinal axial pain reproduction upon deep compression along the L4, L5 facets bilaterally. MUSCULOSKELETAL: Muscle atrophy noted bilateral lower extremities. Anterior tibialis slightly weak bilaterally. Extensors are intact. Patient does now use a wheeled walker to ambulate. NEUROLOGICAL: Patient has stocking distribution hypoesthesia along the S1 distribution bilateral lower extremities to the level of the heel. Reflexes are blunted bilaterally. DIAGNOSIS: Lumbar radiculitis, lumbar degenerative disc disease, sacral neuritis and chronic lower back pain. PLAN: At this time, we will continue to just medically manage him. Refills for tramadol and Lyrica at the set dose and frequency will be sent to his pharmacy. I encouraged the use of heat as well as a menthol rub to his back. Vitamin importance was discussed. Patient will be brought back to the clinic in three months' time, unless otherwise indicated, and patient agrees with this plan. [facility] Evaluation note 08-31-2022 Note Date & Type Note Facility 08-31-2022 Evaluation note Encounter Date Diagnosis Assessment Notes Aug, MANISH (acute kidney injury) (ICD-10 - N17.9) Patient had elevated creatinine 2.2 mg/dL in the setting of CHF and PE. Renal function did improve with diuretics. Creatinine is down to 1.6 mg/dL. Baseline creatinine is unknown. Aug, Hypertensive chronic kidney disease w stg 1-4/unsp chr kdny (ICD-10 - I12.9) Patient has history of hypertension used to be on lisinopril that still on hold. Blood pressure did improve after resolution of pulmonary embolism. He still has edema and manifestations of right-sided heart failure. We will add spironolactone 25 mg daily. Continue furosemide 40 mg twice a day. Aug, Chronic kidney disease, stage 3b (ICD-10 - N18.32) Patient seems to have mild CKD stage III possibly related to atherosclerotic renovascular disease. He denies history of DM2. He has a history of hypertension and used to be on lisinopril before admission with MANISH. We will check spot urine for protein and creatinine and restart lisinopril as indicated. Currently we will treat blood pressure mainly with diuretics considering his shortness of breath and edema. Aug, CHF (congestive heart failure) (ICD-10 - I50.9) Patient has right-sided heart failure in the setting of HEENA and recent PE with pulmonary hypertension. Importance of salt restriction has been addressed. Continue diuretics. Aug, DVT (deep venous thrombosis) (ICD-10 - I82.409) Patient developed DVT while he is traveling and after episode of COVID 19 currently on Xarelto. Aug, PE (pulmonary embolism) (ICD-10 - I26.99) Patient presented with chest pain on June 2022 and he was found to have DVTs and high probability PE on VQ scan. He did refuse intervention with CTA or thrombectomy concerning the MANISH and risk of dialysis as he stated that one of his relatives has been on dialysis after contrast. Patient was informed that his renal function was improving and diuretics at that time. Patient will be treated conservatively with Xarelto for at least 6 months. Will refer to pulmonary if shortness of breath is worse. [employer] Other Consultation note 06-15-2022 Note Date & Type Note Facility 06-15-2022 Note CONSULTATION CONSULTATION DATE: 06/15/2022 HISTORY OF PRESENT ILLNESS: This is a 76-year-old gentleman returning to the clinic for a three month follow up for his chronic lower back and buttock pain. The patient just returned from a cruise and tested positive with COVID upon his arrival. Patient is mainly feeling fatigue as sequelae to that diagnosis. In regards to his lower back pain and buttocks pain, his pain is 9/10 today. He feels intense burning in the sacral area as well as bilateral radicular pain to the posterior aspects of his lower extremities. It does go below the knee to the level of the heel. Activities such as standing, walking and [employer] hours are most painful. Current medications include tramadol 100 mg b.i.d., Lyrica 75 mg daily, diclofenac 75 mg b.i.d. and a multivitamin. The patient is not as active, as he uses a wheeled walker to get around. Patient's REVIEW OF SYSTEMS / PAST MEDICAL HISTORY / ALLERGIES and IMAGES have been reviewed and they are noted on the chart. PHYSICAL EXAM: VITAL SIGNS: Blood pressure is 160/85. Heart rate is 88. Temperature is 97.1. He is 71 tall, weighs 160.2 kg. GENERAL APPEARANCE: Pleasant, appropriate, no acute distress. FOCUSED EXAM - BACK: Range of motion is functional in lateral rotation and flexion and extension. Mild reproduction of spinal axial pain noted to direct compression along the lateral aspect of the facets of L3, L4, L5 bilaterally. Fullness felt to the facets indicative of facet arthropathy, lumbar spondylosis. Pain does radiate below the knee bilaterally, to the posterior aspect of the lower extremities. MUSCULOSKELETAL: Diffuse muscle atrophy noted to bilateral lower extremities. Motor is 3-4/5 bilaterally. He does use a wheeled walker to ambulate. NEUROLOGICALLY: Stocking distribution hypoesthesia noted along S1 bilaterally, to the level of the heel. Blunted bilateral patellar and Achilles reflexes. IMPRESSION: Lumbar radiculitis, sacral neuritis, lumbar degenerative disc disease. PLAN: Patient has historically received significant relief with epidural injections. We will authorize for lumbar epidural steroid injection at the level of L5. Education was given on the frequency of the Lyrica, as he was supposed to be taking 75 b.i.d. He will begin the evening dose today. Nutrition and vitamin importance was discussed. Patient agrees with the plan of care and with the procedure moving forward. We will follow him up in the clinic post procedure. [facility] Consultation note 03-30-2022 Note Date & Type Note Facility 03-30-2022 Note CONSULTATION CONSULTATION DATE: 03/30/2022 HISTORY OF PRESENT ILLNESS: This is a 76-year-old gentleman who returns for one month follow up for chronic lumbar radiculitis, sacroiliitis and lower back pain. He was last seen on 02/16/2022 which, at that time, patient was in an inflammatory flare. His Lyrica was increased to 75 mg at that time, and he was placed on a four day course of prednisone at 20 mg daily. Patient states that he spread the prednisone, one pill every three days, to last two weeks and the pain relief was extraordinary. He is asking for a possible prescription for chronic steroids to be taken like that. Patient has had caudal epidural steroid injection in the past which was very helpful but short lived for his radicular pain to his lower extremities and sacral pain. Today, the patient states his pain is 9/10, described as a burn. He has no new radicular pain or vasomotor changes. He does use a Rollator to work. Current medications include tramadol 50 mg q.i.d., Lyrica 75 mg b.i.d., diclofenac 75 mg b.i.d. and a multivitamin regimen. Patient's REVIEW OF SYSTEMS / PAST MEDICAL HISTORY / ALLERGIES and IMAGES have been reviewed and they are noted on the chart. PHYSICAL EXAM: VITALS: Blood pressure is 153/71. Heart rate is 74. Temperature is 97.5. He is 5'11 and weighs 170 kg. GENERAL APPEARANCE: Pleasant, appropriate, no acute distress. FOCUSED EXAM - BACK: Range of motion is decreased in lateral rotation and flexion/extension. Reproduction of spinal axial pain to lower lumbar of L4, L5 with radiating pain bilaterally below the knees. Charlotte's point is non-tender. MUSCULOSKELETAL: Motor is intact, 4/5 bilaterally. Decent muscle tone. Patient uses a Rollator to ambulate and does steadily. NEUROLOGICALLY: Radicular pain and patchy hypoesthesia noted along L5, S1 bilaterally to levels of the dorsum of his feet. Bilateral blunted patellar reflexes. IMPRESSION: Lumbar spinal canal stenosis, lumbar degenerative disc and lumbar radiculitis. PLAN: I re-directed the patient to talk with his PCP, Dr. Camejo, regarding the chronic low dose steroid regimen. We will continue to maintain his diclofenac, Lyrica and tramadol. We did discuss possible caudal epidural steroid injection. Patient prefers to hold off on the injection and talk to his PCP regarding oral steroids. The patient is leaving for a seven day cruise the end of May and will possibly be in need of a caudal prior to that. Nutrition and vitamin importance was discussed. Patient will follow up in three months' time unless otherwise indicated. [facility] Signed and Approved by: DOMO SANCHEZ . 04/06/2022 16:04:[address] [facility] Consultation note 02-16-2022 Note Date & Type Note Facility 02-16-2022 Note CONSULTATION PAIN MANAGEMENT CONSULTATION HISTORY OF PRESENT ILLNESS: This is a 76-year-old gentleman returning to the clinic for 18 month follow up for chronic lower back, buttock and lower extremity pain. Today, he states his pain is 7/10, described as burning. He was last seen in early December which, at that time, his pain was very minimal and he was status post a caudal epidural. He is complaining of increased numbness while sitting on the commode to the posterior areas of his lower extremities. Standing and walking are difficult and increase his lower back pain. Medications include diclofenac 75 mg b.i.d., Lyrica 75 mg b.i.d. per his PCP and tramadol 100 mg b.i.d. Patient does have known spinal canal stenosis and degenerative disc. The patient states recently he is having increased numbness to his perineal and rectal area and he is unable to tell, at times, when his bowel movement is complete. The patient does change and relieve when he is up and then sits in the recliner. He does ambulate with a Rollator and is steady. Patient's REVIEW OF SYSTEMS / PAST MEDICAL HISTORY / ALLERGIES and IMAGES have been reviewed and they are noted on the chart. PHYSICAL EXAM: VITALS: Blood pressure 148/76, heart rate is 69. Temperature is 96.6. He is 5'11 , weighs 168 kg. GENERAL APPEARANCE: Pleasant, appropriate, no acute distress today. FOCUSED EXAM - BACK: Range of motion is guarded in lateral rotation/flexion/extension. Mild reproduction of spinal axial pain noted to direct compression along the posterior elements of the facets of L2, L3 and L4, L5 bilaterally. Paravertebral muscles are taut but not spasmodic. Charlotte's point is tender bilaterally. Debby's is negative. MUSCULOSKELETAL: Motor is intact, 4/5 bilaterally. Walks with a steady, even ambulation with a Rollator. He does have diffuse lower extremity muscle disuse. NEUROLOGICALLY: Second distribution hypoesthesia bilaterally to L5-S1 dermatome. Blunted bilateral patellar reflexes. IMPRESSION: Lumbar spinal canal stenosis, lumbar degenerative disc disease and lumbar radiculitis. PLAN: The patient is to increase his Lyrica to three times a day. He will be placed on a very short course of prednisone 20 mg daily for four days to get him through this acute bout of inflammation. We discussed repeating a caudal epidural, possibly in March, and that will be discussed further at his next appointment in six weeks' time. Patient agrees with plan of care and all questions were answered. [facility] Signed and Approved by: DOMO SANCHEZ . 02/23/2022 13:58:[address] [facility] Evaluation note Note Date & Type Note Facility Evaluation note No Information [employer] Other History general Narrative - Reported Note Date & Type Note Facility History general Narrative - Reported Type Medical History ACUTE KIDNEY INJURY Medical History CHF (CONGESTIVE HEART FAILURE) Medical History PULMONARY EMBOLISM A SSOCIATED WITH COVID 19 Medical History DVT (DEEP VENOUS THROMBOSIS) Surgical History KNEE SURGERY LEFT Surgical History KNEE SURGERY RIGHT Hospitalization History ACUTE KIDNEY INJ URY, CHF, PULMONARY EMBOLISM ASSOCIATED WITH COVID 19 06/22/2022 [employer] Other Summary Purpose Family History No Family History Records FoundUnknown Family Member Name Dates Details Family history of malignant neoplasm: Father(V16.9, Z80.9) Status:Active Unknown Family Member Name Dates Details Family history of malignant neoplasm: Father(V16.9, Z80.9) Status:Active Advance Directives No Advanced Directives Records FoundNo Advanced Directives Records FoundNo Advanced Directives Records FoundNo Advanced Directives Records FoundNo Advanced Directives Records FoundNo Advanced Directives Records Found Chief Complaint * 07/05/2022 [facility] [place] SP EKOS. * ELEUTERIO CABRAL is being seen for follow-up of a hospitalization for. * 76-year-old morbidly obese gentleman who returns for office visit following bilateral DVTs and highrisk perfusion scan (no ventilation scan due to COVID pandemic) suspicious for bilateral peripheralPEs. Patient has persistent exertional dyspnea currently on Xarelto therapy, remains morbidly obese, has chronic kidney disease with baseline serum creatinine last measured around 1.86 as high as 2.25. * Patient did not undergo angiographic assessment nor catheter-based intervention due to his chronic kidney disease and the potential for worsening of his kidney function. He did have significant rightventricular dilation and dysfunction and hypokinesis and moderately severe pulmonary hypertension with RVSP of 55 mmHg. However, this is in conjunction with morbid obesity, chronic obstructive sleep apnea. Lower extremity venous Doppler revealed right saphenous vein and left femoral and popliteal vein thrombus. * His DVTs/high probability PEs came on the heels of COVID illness, and immobility 3 weeks following a cruise where he acquired COVID. * As the patient was unwilling to take the risk of potential worsening in his renal function we therefore transitioned him to conservative based therapy with ongoing anticoagulation. * He still has significant exertional dyspnea, risk benefits alternatives and informed decision-making process performed with patient again today and will proceed with remeasuring his renal function, D-dimer, BNP, if his renal function is improved we will consider proceeding with CT PE protocol to tim ssess for thrombus burden. * ELEUTERIO CABRAL is being seen for a 6 month follow-up of. * 77-year-old gentleman who returns for 6-month follow-up, continues on Antithrombin therapies for treatment of DVT and suspected pulmonary embolism following COVID illness in June 2022. He underwentperfusion scan he did not undergo any CT angiography due to chronic renal insufficiency. Last office visit in July 2022, in addition to his blood work and hospitalization notes and imaging reports are all reviewed. * Notably he did not proceed with CT angiography last year after my office visit. He remains sedentary, ambulatory by means of rollator, morbidly obese currently 355 pounds with a BMI of 49.5, hemodynamically stable. Today's exam reveals mild 1-2+ ankle edema only. He does have chronic renal failure and follows with Dr. Escobedo. * He remains on Xarelto therapy with no recurrent thromboembolic and no bleeding events or recurrent hospitalizations * Long discussion in regards to duration of therapy for DVT/suspected PE and I have recommended a minimum of 1 year of DOAC therapy, consideration for lifelong therapy given his comorbidities of sedentary lifestyle, morbid obesity however he may want to corroborate this with second opinion with hematology/oncology or even vascular surgery. But at least he should have a years worth of DOAC. He can otherwise follow-up in 1 year Additional Source Comments (unrecognized sect ion and content) No Status Records FoundNo Status Records FoundNo Status Records FoundNo Status Records FoundNo Status Records FoundNo Status Records Found INFORMATION SOURCE (unrecogn ized section and content) DATE CREATED AUTHOR 08/22/2018 [facility] DATE CREATED AUTHOR AUTHOR'S ORGANIZ ATION 12/09/2022 [facility] DATE CREATED AUTHOR AUTHOR'S ORGANIZ ATION 01/05/2023 [facility] DATE CREATED AUTHOR AUTHOR'S ORGANIZ ATION 01/06/2023 [employer] DATE CREATED AUTHOR AUTHOR'S ORGANIZ ATION 01/28/2023 [facility] DATE CREATED AUTHOR AUTHOR'S ORGANIZ ATION 11/16/2023 [facility] REASON FOR VISIT (unrecogniz ed section and content) RENAL HOSP F/UClinical2 [facility] follow up MANISH on CKD stage IICLARIFY MEDICATION FOR RECORDS PERTAINING TO PATIENTS WHO ARE OR HAVE BEEN ENROLLED IN A CHEMICAL DEPENDENCY/SUBSTANCEABUSE PROGRAM, SOME INFORMATION MAY BE OMITTED. This clinical summary was aggregated from multiple sources. Caution should be exercised in using it in the provision of clinical care. This summary normalizes information from multiple sources, and as a consequence, information in this document may materially change the coding, format and clinical context of patient data. In addition, data may be omitted in some cases. CLINICAL DECISIONS SHOULD BE BASED ON THE PRIMARY CLINICAL RECORDS. [employer] provides no warranty or guarantee of the accuracy or completeness of information in this document.
[2023-11-26 16:03] LABS: Creatinine Urine Random 86.73 mg/dL (20.00-300.00); Total Protein Urine Random <6.0 mg/dL (<=11.9)
== END 2023-11-26 14:41 | disposition home or self-care (01) ==
LOC: LAB 14:43
PROVIDERS: PCP Family Medicine; Visit Provider Internal Medicine Nephrology
DX: N18.32 Chronic kidney disease, stage 3b (principal)
CPT/HCPCS: 82570; 84156

== ENCOUNTER 2023-11-26 14:46 | Outpatient (OUT) | payer MEDICARE, OTHER, SELFPAY ==
--- OUTSIDE RECORDS SUMMARY | 2023-11-26 14:53 | XMS_ITS | CCD ---
Author Name Unknown Address [address] [place] [address] Organization [facility] Care Team Providers Care Welt Cutter Name Role Phone PHYSICIAN, DEFAULT Unavailable Unavailable PHYSICIAN, DEFAULT Unavailable Unavailable Jorge Camejo Unavailable Unavailable Unavailable Oscar Walters Unavailable Patel Ugarte Admitting Unavailable Eleuterio Napier Attending Unavailab Jorge Casillas Primary Care Unavailable Josiane Sykes Consulting Unavailable Beth Treviño Consulting Unavailable Rojas [...] Unavailable NADERER, DR JORGE Masters Attending Unavailable DAN[place], DR ANETTE Torrez Consulting Unavailable NADERER, DR [...] Drug Class(es) Dates Sig (Normalized) Sig (Original) [id number] 200 actuat albuterol 0.09 mg/actuat metered dose [...] 04-12-2022 Episodic Other aftercare (1 source) Other residential (current) drug therapy; Translations: [OTH NURSING HOME [...] Recorded: 04Jan2023 11:33AM Heart Rate64, L Radial Ohapyibi843, LUE, Sitting Dmgqsbvca39, LUE, Sitting Height5 ft 11 in Loefkz893 lb BMI Wzsscplbda60.51 kg/m2 BSA Calculated2.69 Tobacco Useb) No PHQ-2 [...] Jan 04 2023 12:41PM EST (Author) Normal [facility] Tobacco Screening.on 023 Adult depression screening assessment No [facility] DO Work Phone: Fall risk assessment a) No falls within the last year [facility] 250 DO Work Phone: Tobacco use status CP b) No [facility] DO Work Phone: FREE T3on 12-07-2022 FREE T3 2.63 pg/mlL Normal 2.18-3.98 [facility] Comment on above: Performed By: #### T SH, FT3 #### [facility] [address] [place] [address] Dr. Cole Echeverria FREE T4on 12-07-2022 Free T4 [Mass/Vol] 1.44 ng/dL Normal 0.76-1.46 [facility] Comment on above: Performed By: #### T SH, FT3 #### [facility] [address] [place] [address] Dr. Cole Echeverria HEMOGLOBINon 12-07-2022 Hemoglobin (Bld) [Mass/Vol] 14.0 g/dL Normal 14.0-18.0 [facility] Comment on above: Performed By: #### F T4, PSASC #### [facility] [address] [place] [address] Dr. Cole Echeverria TSHon 12-07-2022 TSH 0.710 uIU/mL Normal 0.358-3.740 [facility] Comment on above: Performed By: #### T SH, FT3 #### [facility] [address] [place] [address] Dr. Cole Echeverria PTH INTACTon 10-04-2022 PTH, Intact 13 pg/mL Critically low 15-65 [facility] Comment on above: Performed By: #### P THINT #### [facility] [address] [place] [address] Dr. Cole Echeverria HEMOGRAM AND PLATELon 2021 Hematocrit (Bld) [Volume fraction] 44.9 % Normal 42.0-54.0 [facility] Comment on above: Performed By: #### F T4, PSASC #### [facility] [address] [place] [address] Dr. Cole Echeverria Hemoglobin (Bld) [Mass/Vol] 14.4 g/dL Normal 14.0-18.0 [facility] Comment on above: Performed By: #### F T4, PSASC #### [facility] [address] [address] [address] Cole Echeverria MCH (RBC) [Entitic mass] 27.0 pg Normal 25.9-34.0 [facility] Comment on above: Performed By: #### F T4, PSASC #### [facility] [address] [place] [address] Dr. Cole Echeverria MCHC (RBC) [Mass/Vol] 32.1 g/dL Normal 29.9-35.2 [facility] Comment on above: Performed By: #### F T4, PSASC #### [facility] [address] [place] [address] Dr. Cole Echeverria MCV (RBC) [Entitic vol] 84.1 fL Normal 80.0-94.0 [facility] Comment on above: Performed By: #### F T4, PSASC #### [facility] [address] [place] [address] Dr. Cole Echeverria PLT 330 103/ul Normal 150-450 [facility] Comment on above: Performed By: #### F T4, PSASC #### [facility] [address] [place] [address] Dr. Cole Echeverria RBC 5.34 106/ul Normal 4.70-6.10 [facility] Comment on above: Performed By: #### F T4, PSASC #### [facility] [address] [place] [address] Dr. Cole Echeverria WBC 8.7 103/ul Normal 4.0-11.0 [facility] Comment on above: Performed By: #### F T4, PSASC #### [facility] [address] [place] [address] Dr. Cole Echeverria PHOSPHORUSon 10-03-2022 Phosphate [Mass/Vol] 3.8 mg/dL Normal 2.6-4.7 [facility] Comment on above: Performed By: #### T SH, FT3 #### [facility] [address] [place] [address] Dr. Cole Echeverria PROF 14(COMP METB)on 022 Albumin [Mass/Vol] 3.1 g/dL Critically low 3.4-5.0 Th e [facility] Comment on above: Performed By: #### T SH, FT3 #### [facility] [address] [place] [address] Dr. Cole Echeverria Albumin/Globulin [Mass ratio] 0.6 {ratio} Normal [facility] Comment on above: Performed By: #### T SH, FT3 #### [facility] [address] [place] [address] Dr. Cole Echeverria ALP [Catalytic activity/Vol] 94 U/L Normal 46-116 [facility] Comment on above: Performed By: #### T SH, FT3 #### [facility] [address] [place] [address] Dr. Cole Echeverria ALT [Catalytic activity/Vol] 11 U/L Critically low 16-63 [facility] Comment on above: Performed By: #### T SOPHIE, FT3 #### [facility] [address] [place] [address] Dr. Cole Echeverria Anion gap [Moles/Vol] 9.3 mmol/L Normal [facility] Comment on above: Performed By: #### T SOPHIE, FT3 #### [facility] [address] [place] [address] Dr. Cole Echeverria AST [Catalytic activity/Vol] 13 U/L Critically low 15-37 [facility] Comment on above: Performed By: #### T SH, FT3 #### [facility] [address] [place] [address] Dr. Cole Echeverria Bilirubin [Mass/Vol] 0.5 mg/dL Normal 0.2-1.0 [facility] Comment on above: Performed By: #### T SH, FT3 #### [facility] [address] [place] [address] Dr. Cole Echeverria Calcium [Mass/Vol] 9.6 mg/dL Normal 8.5-10.1 [facility] Comment on above: Performed By: #### T SH, FT3 #### [facility] [address] [place] [address] Dr. Cole Echeverria Chloride [Moles/Vol] 101 mmol/L Normal 98-107 [facility] Comment on above: Performed By: #### T SH, FT3 #### [facility] [address] [place] [address] Dr. Cole Echeverria CO2 [Moles/Vol] 31.6 mmol/L Normal 21.0-32.0 [facility] Comment on above: Performed By: #### T SH, FT3 #### [facility] [address] [place] [address] Dr. Cole Echeverria Creatinine [Mass/Vol] 1.13 mg/dL Normal 0.70-1.30 [facility] Comment on above: Performed By: #### T SH, FT3 #### [facility] [address] [place] [address] Dr. Cole Echeverria EGFR-AF CENTRAL AFRICAN >60 Normal >=60 [facility] Comment on above: Performed By: #### T SH, FT3 #### [facility] [address] [place] [address] Dr. Cole Echeverria EGFR-NON AF CENTRAL AFRICAN >60 Normal >=60 [facility] Comment on above: Performed By: #### T SH, FT3 #### [facility] [address] [place] [address] Dr. Cole Echeverria Globulin (S) [Mass/Vol] 5.0 g/dL Normal [facility] Comment on above: Performed By: #### T SH, FT3 #### [facility] [address] [place] [address] Dr. Cole Echeverria Glucose [Mass/Vol] 104 mg/dL Normal 74-106 [facility] Comment on above: Performed By: #### T SH, FT3 #### [facility] [address] [place] [address] Dr. Cole Echeverria Potassium [Moles/Vol] 3.9 mmol/L Normal 3.5-5.1 [facility] Comment on above: Performed By: #### T SH, FT3 #### [facility] [address] [place] [address] Dr. Cole Echeverria Protein [Mass/Vol] 8.1 g/dL Normal 6.4-8.2 [facility] Comment on above: Performed By: #### T SOPHIE, FT3 #### [facility] [address] [place] [address] Dr. Cole Echeverria Sodium [Moles/Vol] 138 mmol/L Normal 136-145 [facility] Comment on above: Performed By: #### T SOPHIE, FT3 #### [facility] [address] [place] [address] Dr. Cole Echeverria Urea nitrogen [Mass/Vol] 21.0 mg/dL Critically high 7.0-18.0 [facility] Comment on above: Performed By: #### T SOPHIE, FT3 #### [facility] [address] [place] [address] Dr. Cole Echeverria Urea nitrogen/Creatinine [Mass ratio] 18.6 mg/mg Normal [facility] Comment on above: Performed By: #### T SOPHIE, FT3 #### [facility] [address] [place] [address] Dr. Cole Echeverria URINE T PROTEIN CREAT RATIOo n 10-03-2022 Protein (U) [Mass/Vol] 7.0 mg/dL Normal <=12.0 [facility] Comment on above: Performed By: #### T SH, FT3 #### [facility] [address] [place] [address] Dr. Cole Echeverria UR PROT CREAT RAT 0.11 Normal [facility] Comment on above: Performed By: #### T SOPHIE, FT3 #### [facility] [address] [place] [address] Dr. Cole Echeverria URINE CREAT 62.81 mg/dL Normal 20.00-300.00 [facility] Comment on above: Performed By: #### T SOPHIE, FT3 #### [facility] [address] [place] [address] Dr. Cole Echeverria VITAMIN D 25 OHon 10-03-2022 VIT D 25-OH 52.1 ng/mL Normal [facility] Comment on above: Performed By: #### T SOPHIE, FT3 #### [facility] [address] [place] [address] Dr. Cole Echeverria VIT D RANGES SEE BELOW Normal [facility] Comment on above: Result Comment: <20 ng/mL Vit D deficient 20 - <30 ng/mL Vit D insufficient 30 - 100 ng/mL Vit D sufficient >100 ng/mL Potential Toxicity Performed By: #### T SH, FT3 #### [facility] [address] [address] [address] Cole Echeverria BNPon 07-12-2022 Natriuretic peptide B (Bld) [Mass/Vol] 1748.0 pg/mL Normal <=1,800.0 [facility] Comment on above: Performed By: #### F T4, PSASC #### [facility] [address] [place] [address] Dr. Cole Echeverria Office Visit (Cardiology)on 07-12-2022 [...] Metabolic Panel; Status:Active - Retrospective Authorization; Requested for:[id number]; Brain Natriuretic Peptide BNP; Status:Active - Retrospective Authorization; Requested for:[id number]; Health Maintenance Basic Metabolic Panel; Status:Canceled - Retrospective Authorization; Morbid obesity with BMI of 50.0-59.9, adult Healthy Weight Tips; Status:Complete - Retrospective Authorization; Done: [id number] Unlinked Healthy Weight Tips; Status:Complete - Retrospective Authorization; Done: [id number] Tobacco Use Screening; Status:Complete; Done: [id number] Tobacco Use Screening; Status:Complete; Done: [id number] Patient Instructions Please bring all medicines, vitamins, [...] up in 6 months Chief Complaint 07/05/2022 [facility] DC SP EKOS. ELEUTERIO CABRAL is being [...] Vitals Vital Signs Recorded: 12Jul2022 11:36AM Heart Oxee079, L Radial Awxthmoc589, LUE, Sitting Hptzyxrnc06, LUE, Sitting Height5 ft 11 in Ucmads157 lb BMI Gqkbrtkjad15.05 kg/m2 BSA Calculated2.73 Tobacco Useb) No PHQ-2 [...] no thyrom (more content not included)... Normal [facility] PROF CHEM 8 (BAS METB)on Anion gap [Moles/Vol] 10.2 mmol/L Normal [facility] Comment on above: Performed By: #### F T4, PSASC #### [facility] [address] [address] [address] Cole Echeverria Calcium [Mass/Vol] 8.9 mg/dL Normal 8.5-10.1 [facility] Comment on above: Performed By: #### F T4, PSASC #### [facility] [address] [address] [address] Cole Echeverria Chloride [Moles/Vol] 97 mmol/L Critically low 98-107 [facility] Comment on above: Performed By: #### F T4, PSASC #### [facility] [address] [address] [address] Cole Echeverria CO2 [Moles/Vol] 32.3 mmol/L Critically high 21.0-32.0 [facility] Comment on above: Performed By: #### F T4, PSASC #### [facility] [address] [address] [address] Cole Echeverria Creatinine [Mass/Vol] 1.18 mg/dL Normal 0.70-1.30 [facility] Comment on above: Performed By: #### F T4, PSASC #### [facility] [address] [address] [address] Cole Echeverria EGFR-AF CENTRAL AFRICAN >60 Normal >=60 [facility] Comment on above: Performed By: #### F T4, PSASC #### [facility] [address] [place] [address] Dr. Cole Echeverria EGFR-NON AF CENTRAL AFRICAN =60 Normal >=60 [facility] Comment on above: Performed By: #### F T4, PSASC #### [facility] [address] [address] [address] Cole Echeverria Glucose [Mass/Vol] 104 mg/dL Normal 74-106 [facility] Comment on above: Performed By: #### F T4, PSASC #### [facility] [address] [address] [address] Cole Echeverria Potassium [Moles/Vol] 3.5 mmol/L Normal 3.5-5.1 [facility] Comment on above: Performed By: #### F T4, PSASC #### [facility] [address] [address] [address] Cole Echeverria Sodium [Moles/Vol] 136 mmol/L Normal 136-145 [facility] Comment on above: Performed By: #### F T4, PSASC #### [facility] [address] [address] [address] Cole Echeverria Urea nitrogen [Mass/Vol] 11.0 mg/dL Normal 7.0-18.0 [facility] Comment on above: Performed By: #### F T4, PSASC #### [facility] [address] [address] [address] Cole Echeverria Urea nitrogen/Creatinine [Mass ratio] 9.3 mg/mg Normal [facility] Comment on above: Performed By: #### F T4, PSASC #### [facility] [address] [address] [address] Cole Echeverria Tobacco Screening.on 022 Adult depression screening assessment No [facility] 250 DO Work Phone: Fall risk assessment a) No falls within the last year [facility] 250 DO Work Phone: Tobacco use status [facility] b) No [facility] 250 DO Work Phone: Basic Metabolic Panelon 06-06-2021 Calcium [Mass/Vol] 8.7 mg/dL Normal 8.2-10.2 [facility] Comment on above: Performed By: #### C BC, BMP #### [facility] [address] Chloride [Moles/Vol] 104 mmol/L Normal 95-114 [facility] Comment on above: Performed By: #### C BC, BMP #### [facility] [address] CO2 [Moles/Vol] 28.0 mmol/L Normal 22.0-30.0 [facility] Comment on above: Performed By: #### C BC, BMP #### [facility] [address] [place] [address] [place] Creatinine [Mass/Vol] 1.60 mg/dL High 0.64-1.27 [facility] Comment on above: Performed By: #### C BC, BMP #### [facility] [address] [place] [address] [place] Creatinine Clr Calc Pharmacy 62.30 Normal [facility] Comment on above: Result Comment: PERF ORMED BY: [place] [address] PATHOLOGIST [employer] ADRIEN RAMIREZ M.D. Performed By: #### C BC, BMP #### [place] [address] [place] Estimated GFR ( Janeen 51 Normal [facility] Comment on above: Result Comment: GFR estimated reference range: According to KDOQI guidelines, <60 ml/min/1.73m2 is sufficient to diagnose a patient with chronic kidney disease. Performed By: #### C BC, BMP #### [address] Estimated GFR (Non- Am 42 Normal [facility] Comment on above: Performed By: #### C BC, BMP #### [address] Glucose [Mass/Vol] 111 mg/dL High 70-100 [facility] Comment on above: Result Comment: [place] om Glucose Reference Range is dependent on time and content of last meal. Glucose of more than 200 mg/dL in a nonstressed, ambulatory subject supports the diagnosis of Diabetes Mellitus. ADA recommended reference range Performed By: #### C BC, BMP #### [address] Potassium [Moles/Vol] 4.1 mmol/L Normal 3.5-5.1 [facility] Comment on above: Performed By: #### C BC, BMP #### [address] Sodium [Moles/Vol] 139 mmol/L Normal 136-146 [facility] Comment on above: Performed By: #### C BC, BMP #### [address] Urea nitrogen [Mass/Vol] 35 mg/dL High 9-23 [facility] Comment on above: Performed By: #### C BC, BMP #### [address] Complete Blood Count Auto Di ffon 06-24-2022 Basophils (Bld) [#/Vol] 0.1 10*3/uL Normal 0.0-0.2 [facility] Comment on above: Result Comment: PERF ORMED BY: [address] [address] PATHOLOGIST [employer] ADRIEN RAMIREZ M.D. Performed By: #### C BC, BMP #### [facility] [address] [place] [address] [place] Basophils/100 WBC (Bld) 0.6 % Normal . [facility] Comment on above: Performed By: #### C BC, BMP #### [facility] [address] [place] [address] [place] Eosinophils (Bld) [#/Vol] 0.6 10*3/uL High 0.0-0.45 [facility] Comment on above: Performed By: #### C BC, BMP #### [facility] [address] Eosinophils/100 WBC (Bld) 7.2 % Normal . [facility] Comment on above: Performed By: #### C BC, BMP #### [facility] [address] Erythrocyte distribution width (RBC) [Ratio] 14.9 % High 12.0-14.8 [facility] Comment on above: Performed By: #### C BC, BMP #### [facility] [address] Hematocrit (Bld) [Volume fraction] 39.6 % Normal 38.8-50.0 [facility] Comment on above: Performed By: #### C BC, BMP #### [facility] [address] [place] [address] [place] Hemoglobin (Bld) [Mass/Vol] 13.1 g/dL Normal 13.0-17.0 [facility] Comment on above: Performed By: #### C BC, BMP #### [facility] [address] [place] [address] [place] Lymphocytes (Bld) [#/Vol] 2.0 10*3/uL Normal 1.00-4.8 [facility] Comment on above: Performed By: #### C BC, BMP #### [facility] [address] [place] [address] [place] Lymphocytes/100 WBC (Bld) 23.1 % Normal . [facility] Comment on above: Performed By: #### C BC, BMP #### [facility] [address] MCH (RBC) [Entitic mass] 30.2 pg Normal 27.5-35.2 [facility] Comment on above: Performed By: #### C BC, BMP #### [facility] [address] MCV (RBC) [Entitic vol] 91.5 fL Normal 83.5-101 [facility] Comment on above: Performed By: #### C BC, BMP #### [facility] [address] Mean Corpuscular HGB Conc 33.0 g/dL Normal 32.5-35.6 [facility] Comment on above: Performed By: #### C BC, BMP #### [facility] [address] Monocytes (Bld) [#/Vol] 0.6 10*3/uL Normal 0.0-0.8 [facility] Comment on above: Performed By: #### C BC, BMP #### [facility] [address] Monocytes/100 WBC (Bld) 7.5 % Normal . [facility] Comment on above: Performed By: #### C BC, BMP #### [facility] [address] Neutrophils (Bld) [#/Vol] 5.3 10*3/uL Normal 1.8-7.7 [facility] Comment on above: Performed By: #### C BC, BMP #### [facility] [address] Neutrophils/100 WBC (Bld) 61.6 % Normal . [facility] Comment on above: Performed By: #### C BC, BMP #### [facility] [address] Nucleated RBC/100 WBC (Bld) [Ratio] 0.0 % Normal 0-0.5 [facility] Comment on above: Performed By: #### C BC, BMP #### [facility] [address] Platelet mean volume (Bld) [Entitic vol] 9.0 fL Normal 6.6-10.1 [facility] Comment on above: Performed By: #### C BC, BMP #### [facility] [address] [place] [address] Platelets (Bld) [#/Vol] 165 10*3/uL Normal 150-450 [facility] Comment on above: Performed By: #### C BC, BMP #### [address] RBC (Bld) [#/Vol] 4.33 10*6/uL Normal 3.90-5.60 [facility] Comment on above: Performed By: #### C BC, BMP #### [address] WBC (Bld) [#/Vol] 8.6 10*3/uL Normal 4.5-11.0 [facility] Comment on above: Performed By: #### C BC, BMP #### [address] Creatinine, Urine (Random)on 06-24-2022 Creatinine, Urine (Random) 162.5 mg/dL Normal [facility] Comment on above: Result Comment: No r eference range established Performed By: #### C BC, BMP #### [address] Partial Thromboplastin Timeo n 06-24-2022 aPTT Coag (Bld) [Time] 77.2 s High 25.1-36.5 [facility] Comment on above: Result Comment: PERF ORMED BY: [place] [address] PATHOLOGIST [employer] ADRIEN RAMIREZ M.D. Performed By: #### C BC, BMP #### [address] Prothrombin Time INRon 08-20 -2022 INR Coag (PPP) [Relative time] 1.9 {INR} Normal [facility] Comment on above: Result Comment: INR Therapeutic [...] Performed By: #### C BC, BMP #### [address] PT Coag (PPP) [Time] 21.9 s High 9.0-12.9 [facility] Comment on above: Performed By: #### C BC, BMP #### [address] Thyroid Stim Hormone w/Rflxo n 06-24-2022 Thyroid Stim Hormone w/Rflx 1.06 u[iU]/mL Normal 0.45-5.33 [facility] Comment on above: Order Comment: Comme nt Add on to previous lab draw Result Comment: PERF ORMED BY: [place] [address] PATHOLOGIST [employer] ADRIEN RAMIREZ M.D. Performed By: #### C BC, BMP #### [address] Total Protein, Urineon 06-24 Protein (U) [Mass/Vol] 7 mg/dL Normal 0-9 [facility] Comment on above: Result Comment: PERF ORMED BY: [place] [address] PATHOLOGIST [employer] ADRIEN RAMIREZ M.D. Performed By: #### C BC, BMP #### [id number] [facility] Urinalysison 06-24-2022 Appearance (U) Clear Normal Clear [facility] Comment on above: Order Comment: Name Collection Type:: Voided Performed By: #### C BC, BMP #### [place] [address] [place] Bilirubin,Urine Negative Normal Negative [facility] Comment on above: Order Comment: Name Collection Type:: Voided Performed By: #### C BC, BMP #### [facility] [address] [place] [address] Color (U) Yellow Normal Yellow [facility] Comment on above: Order Comment: Name Collection Type:: Voided Performed By: #### C BC, BMP #### [address] Glucose Ql (U) Normal Normal Normal [facility] Comment on above: Order Comment: Name Collection Type:: Voided Performed By: #### C BC, BMP #### [address] Ketones Ql (U) Negative Normal Negative [facility] Comment on above: Order Comment: Name Collection Type:: Voided Performed By: #### C BC, BMP #### [address] Leukocyte esterase Test strip Ql (U) Negative Normal Negative [facility] Comment on above: Order Comment: Name Collection Type:: Voided Performed By: #### C BC, BMP #### [address] Nitrite,Urine Negative Normal Negative [facility] Comment on above: Order Comment: Name Collection Type:: Voided Performed By: #### C BC, BMP #### [place] [address] [place] Occult Blood,Urine Negative Normal Negative [facility] Comment on above: Order Comment: Name Collection Type:: Voided Result Comment: PERF ORMED BY: [place] [address] PATHOLOGIST SAPPHIRE STYLUS GRINDER ADRIEN RAMIREZ M.D. Performed By: #### C BC, BMP #### [address] pH (U) 5.5 [pH] Normal 5.0-9.0 [facility] Comment on above: Order Comment: Name Collection Type:: Voided Performed By: #### C BC, BMP #### [address] Protein,Urine Negative Normal Negative [facility] Comment on above: Order Comment: Name Collection Type:: Voided Performed By: #### C BC, BMP #### [address] Specificy Bryant,Urine 1.021 Normal 1.001-1.030 [facility] Comment on above: Order Comment: Name Collection Type:: Voided Performed By: #### C BC, BMP #### [address] Urobilinogen,Urine Normal Normal Normal [facility] Comment on above: Order Comment: Name Collection Type:: Voided Performed By: #### C BC, BMP #### [address] B-Type Natriuretic Peptideon 06-23-2022 Natriuretic peptide B (Bld) [Mass/Vol] 343.0 pg/mL High 5-100 [facility] Comment on above: Result Comment: PERF ORMED BY: [place] [address] PATHOLOGIST SAPPHIRE STYLUS GRINDER ADRIEN RAMIREZ M.D. Performed By: #### B DESKTOP PUBLISHING SPECIALIST #### [address] Basic Metabolic Panelon 06-05 Calcium [Mass/Vol] 8.2 mg/dL Normal 8.2-10.2 [facility] Comment on above: Performed By: #### C BC, BMP #### [place] [address] [place] Chloride [Moles/Vol] 103 mmol/L Normal 95-114 [facility] Comment on above: Performed By: #### C BC, BMP #### [place] [address] [place] CO2 [Moles/Vol] 27.3 mmol/L Normal 22.0-30.0 [facility] Comment on above: Performed By: #### C BC, BMP #### [facility] [address] Creatinine [Mass/Vol] 1.86 mg/dL High 0.64-1.27 [facility] Comment on above: Performed By: #### C BC, BMP #### [facility] [address] Creatinine Clr Calc Pharmacy 53.59 [facility] Comment on above: Result Comment: PERF ORMED BY: [place] [address] PATHOLOGIST SAPPHIRE STYLUS GRINDER ADRIEN RAMIREZ M.D. Performed By: #### C BC, BMP #### [address] Estimated GFR ( Janeen 43 [facility] Comment on above: Result Comment: GFR estimated reference range: According to KDOQI guidelines, <60 ml/min/1.73m2 is sufficient to diagnose a patient with chronic kidney disease. Performed By: #### C BC, BMP #### [place] [address] [place] Estimated GFR (Non- Am 36 [facility] Comment on above: Performed By: #### C BC, BMP #### [address] Glucose [Mass/Vol] 144 mg/dL High 70-100 [facility] Comment on above: Result Comment: [place] Glucose Reference Range is dependent on time and content of last meal. Glucose of more than 200 mg/dL in a nonstressed, ambulatory subject supports the diagnosis of Diabetes Mellitus. ADA recommended reference range Performed By: #### C BC, BMP #### [address] Potassium [Moles/Vol] 3.8 mmol/L Normal 3.5-5.1 [facility] Comment on above: Performed By: #### C BC, BMP #### [address] [address] [place] Sodium [Moles/Vol] 138 mmol/L Normal 136-146 [facility] Comment on above: Performed By: #### C BC, BMP #### [address] Urea nitrogen [Mass/Vol] 42 mg/dL High 9-23 [facility] Comment on above: Performed By: #### C BC, BMP #### [address] Complete Blood Count Auto Di ffon 06-23-2022 Basophils (Bld) [#/Vol] 0.0 10*3/uL Normal 0.0-0.2 [facility] Comment on above: Result Comment: PERF ORMED BY: [place] [address] PATHOLOGIST SAPPHIRE STYLUS GRINDER ADRIEN RAMIREZ M.D. Performed By: #### C AMANDEEP, BMP #### [address] Basophils/100 WBC (Bld) 0.3 % Normal . [facility] Comment on above: Performed By: #### C AMANDEEP, BMP #### [address] Eosinophils (Bld) [#/Vol] 0.6 10*3/uL High 0.0-0.45 [facility] Comment on above: Performed By: #### C AMANDEEP, BMP #### [address] Eosinophils/100 WBC (Bld) 6.6 % Normal . [facility] Comment on above: Performed By: #### C BC, BMP #### [address] Erythrocyte distribution width (RBC) [Ratio] 14.6 % Normal 12.0-14.8 [facility] Comment on above: Performed By: #### C BC, BMP #### [address] Hematocrit (Bld) [Volume fraction] 39.2 % Normal 38.8-50.0 [facility] Comment on above: Performed By: #### C BC, BMP #### [facility] [address] Hemoglobin (Bld) [Mass/Vol] 12.8 g/dL Low 13.0-17.0 [facility] Comment on above: Performed By: #### C BC, BMP #### [facility] [address] Lymphocytes (Bld) [#/Vol] 1.8 10*3/uL Normal 1.00-4.8 [facility] Comment on above: Performed By: #### C BC, BMP #### [facility] [address] Lymphocytes/100 WBC (Bld) 21.7 % Normal . [facility] Comment on above: Performed By: #### C BC, BMP #### [facility] [address] MCH (RBC) [Entitic mass] 30.0 pg Normal 27.5-35.2 [facility] Comment on above: Performed By: #### C BC, BMP #### [facility] [address] MCV (RBC) [Entitic vol] 92.1 fL Normal 83.5-101 [facility] Comment on above: Performed By: #### C BC, BMP #### [facility] [address] Mean Corpuscular HGB Conc 32.5 g/dL Normal 32.5-35.6 [facility] Comment on above: Performed By: #### C BC, BMP #### [facility] [address] [place] [address] [place] Monocytes (Bld) [#/Vol] 0.5 10*3/uL Normal 0.0-0.8 [facility] Comment on above: Performed By: #### C BC, BMP #### [facility] [address] [place] [address] [place] Monocytes/100 WBC (Bld) 6.3 % Normal . [facility] Comment on above: Performed By: #### C BC, BMP #### [facility] [address] [place] [address] [place] Neutrophils (Bld) [#/Vol] 5.5 10*3/uL Normal 1.8-7.7 [facility] Comment on above: Performed By: #### C BC, BMP #### [facility] [address] [place] [id number] [place] Neutrophils/100 WBC (Bld) 65.1 % Normal . [facility] Comment on above: Performed By: #### C BC, BMP #### [facility] [address] [place] [address] [place] Nucleated RBC/100 WBC (Bld) [Ratio] 0.0 % Normal 0-0.5 [facility] Comment on above: Performed By: #### C BC, BMP #### [facility] [address] [place] [address] [place] Platelet mean volume (Bld) [Entitic vol] 9.1 fL Normal 6.6-10.1 [facility] Comment on above: Performed By: #### C BC, BMP #### [facility] [address] [place] [address] [place] Platelets (Bld) [#/Vol] 165 10*3/uL Normal 150-450 [facility] Comment on above: Performed By: #### C BC, BMP #### [facility] [address] [place] [address] [place] RBC (Bld) [#/Vol] 4.26 10*6/uL Normal 3.90-5.60 [facility] Comment on above: Performed By: #### C BC, BMP #### [facility] [address] [place] [address] [place] WBC (Bld) [#/Vol] 8.4 10*3/uL Normal 4.5-11.0 [facility] Comment on above: Performed By: #### C BC, BMP #### [facility] [address] [place] [address] [place] Basophils (Bld) [#/Vol] 0.0 10*3/uL Normal 0.0-0.2 [facility] Comment on above: Result Comment: PERF ORMED BY: [place] [address] PATHOLOGIST SAPPHIRE STYLUS GRINDER ADRIEN RAMIREZ M.D. Performed By: #### C BC, CMP, HS TROP #### [facility] [address] [place] [address] Basophils/100 WBC (Bld) 0.4 % Normal . [facility] Comment on above: Performed By: #### C BC, CMP, HS TROP #### [place] [address] [place] Eosinophils (Bld) [#/Vol] 0.5 10*3/uL High 0.0-0.45 [facility] Comment on above: Performed By: #### C BC, CMP, HS TROP #### [address] Eosinophils/100 WBC (Bld) 4.0 % Normal . [facility] Comment on above: Performed By: #### C BC, CMP, HS TROP #### [address] Erythrocyte distribution width (RBC) [Ratio] 14.7 % Normal 12.0-14.8 [facility] Comment on above: Performed By: #### C BC, CMP, HS TROP #### [address] Hematocrit (Bld) [Volume fraction] 41.3 % Normal 38.8-50.0 [facility] Comment on above: Performed By: #### C BC, CMP, HS TROP #### [facility] [address] [place] [address] [place] Hemoglobin (Bld) [Mass/Vol] 13.4 g/dL Normal 13.0-17.0 [facility] Comment on above: Performed By: #### C BC, CMP, HS TROP #### [facility] [address] [place] [address] [place] Lymphocytes (Bld) [#/Vol] 2.0 10*3/uL Normal 1.00-4.8 [facility] Comment on above: Performed By: #### C BC, CMP, HS TROP #### [address] Lymphocytes/100 WBC (Bld) 17.2 % Normal . [facility] Comment on above: Performed By: #### C BC, CMP, HS TROP #### [facility] [address] [place] [address] MCH (RBC) [Entitic mass] 30.1 pg Normal 27.5-35.2 [facility] Comment on above: Performed By: #### C BC, CMP, HS TROP #### [address] MCV (RBC) [Entitic vol] 92.6 fL Normal 83.5-101 [facility] Comment on above: Performed By: #### C BC, CMP, HS TROP #### [address] Mean Corpuscular HGB Conc 32.4 g/dL Low 32.5-35.6 [facility] Comment on above: Performed By: #### C BC, CMP, HS TROP #### [address] Monocytes (Bld) [#/Vol] 0.7 10*3/uL Normal 0.0-0.8 [facility] Comment on above: Performed By: #### C BC, CMP, HS TROP #### [address] Monocytes/100 WBC (Bld) 5.8 % Normal . [facility] Comment on above: Performed By: #### C BC, CMP, HS TROP #### [facility] [address] [place] [address] [place] Neutrophils (Bld) [#/Vol] 8.4 10*3/uL High 1.8-7.7 [facility] Comment on above: Performed By: #### C BC, CMP, HS TROP #### [address] [address] [place] Neutrophils/100 WBC (Bld) 72.6 % Normal . [facility] Comment on above: Performed By: #### C BC, CMP, HS TROP #### [facility] [address] Nucleated RBC/100 WBC (Bld) [Ratio] 0.0 % Normal 0-0.5 [facility] Comment on above: Performed By: #### C BC, CMP, HS TROP #### [facility] [address] Platelet mean volume (Bld) [Entitic vol] 9.0 fL Normal 6.6-10.1 [facility] Comment on above: Performed By: #### C BC, CMP, HS TROP #### [address] Platelets (Bld) [#/Vol] 204 10*3/uL Normal 150-450 [facility] Comment on above: Performed By: #### C BC, CMP, HS TROP #### [address] RBC (Bld) [#/Vol] 4.45 10*6/uL Normal 3.90-5.60 [facility] Comment on above: Performed By: #### C BC, CMP, HS TROP #### [address] WBC (Bld) [#/Vol] 11.6 10*3/uL High 4.5-11.0 [facility] Comment on above: Performed By: #### C BC, CMP, HS TROP #### [facility] [address] [place] [address] Comprehensive Metabolic Pane isidro 06-23-2022 Albumin [Mass/Vol] 2.9 g/dL Low 3.2-5.5 [facility] Comment on above: Performed By: #### C BC, CMP, HS TROP #### [facility] [address] [place] [address] Albumin/Globulin [Mass ratio] 0.7 {ratio} Normal [facility] Comment on above: Performed By: #### C BC, CMP, HS TROP #### [facility] [address] [place] [id number] [place] ALP [Catalytic activity/Vol] 70 U/L Normal 32-92 [facility] Comment on above: Performed By: #### C BC, CMP, HS TROP #### [facility] [address] [place] [id number] [place] ALT [Catalytic activity/Vol] 20 U/L Normal 10-60 [facility] Comment on above: Performed By: #### C BC, CMP, HS TROP #### [facility] [address] [place] [id number] [place] AST [Catalytic activity/Vol] 20 U/L Normal 10-42 [facility] Comment on above: Performed By: #### C BC, CMP, HS TROP #### [facility] [address] [place] [address] [place] Bilirubin [Mass/Vol] 1.2 mg/dL Normal 0.3-1.2 [facility] Comment on above: Performed By: #### C BC, CMP, HS TROP #### [facility] [address] [place] [phone] [place] Calcium [Mass/Vol] 8.8 mg/dL Normal 8.2-10.2 [facility] Comment on above: Performed By: #### C BC, CMP, HS TROP #### [facility] [address] [place] [phone] [place] Chloride [Moles/Vol] 97 mmol/L Normal 95-114 [facility] Comment on above: Performed By: #### C BC, CMP, HS TROP #### [facility] [address] [place] [id number] [place] CO2 [Moles/Vol] 28.1 mmol/L Normal 22.0-30.0 [facility] Comment on above: Performed By: #### C BC, CMP, HS TROP #### [facility] [address] [place] [phone] [place] Creatinine [Mass/Vol] 1.87 mg/dL High 0.64-1.27 [facility] Comment on above: Performed By: #### C BC, CMP, HS TROP #### [facility] [address] [place] [address] [place] Creatinine Clr Calc Pharmacy 52.98 [facility] Comment on above: Result Comment: PERF ORMED BY: [place] [address] PATHOLOGIST SAPPHIRE STYLUS GRINDER ADRIEN RAMIREZ M.D. Performed By: #### C BC, CMP, HS TROP #### [address] Estimated GFR ( Janeen 43 [facility] Comment on above: Result Comment: GFR estimated reference range: According to KDOQI guidelines, <60 ml/min/1.73m2 is sufficient to diagnose a patient with chronic kidney disease. Performed By: #### C BC, CMP, HS TROP #### [facility] [address] [place] [address] Estimated GFR (Non- Am 35 [facility] Comment on above: Performed By: #### C BC, CMP, HS TROP #### [facility] [address] [place] [address] Globulin (S) [Mass/Vol] 4.0 g/dL Normal [facility] Comment on above: Performed By: #### C BC, CMP, HS TROP #### [facility] [address] [place] [address] Glucose [Mass/Vol] 121 mg/dL High 70-100 [facility] Comment on above: Result Comment: [place] Glucose Reference Range is dependent on time and content of last meal. Glucose of more than 200 mg/dL in a nonstressed, ambulatory subject supports the diagnosis of Diabetes Mellitus. ADA recommended reference range Performed By: #### C BC, CMP, HS TROP #### [facility] [address] Potassium [Moles/Vol] 4.1 mmol/L Normal 3.5-5.1 [facility] Comment on above: Performed By: #### C BC, CMP, HS TROP #### [facility] [address] Protein [Mass/Vol] 6.9 g/dL Normal 6.1-7.9 [facility] Comment on above: Performed By: #### C BC, CMP, HS TROP #### [facility] [address] Sodium [Moles/Vol] 137 mmol/L Normal 136-146 [facility] Comment on above: Performed By: #### C BC, CMP, HS TROP #### [facility] [address] Urea nitrogen [Mass/Vol] 41 mg/dL High 9- [facility] Comment on above: Performed By: #### C BC, CMP, HS TROP #### [facility] [address] [place] [address] Creatinine, Urine (Random)on 06-23-2022 Creatinine, Urine (Random) 60.1 mg/dL Normal [facility] Comment on above: Result Comment: No r eference range established Performed By: #### U NA, UCREA #### [facility] [address] [place] [address] #### UR UREA NIT #### [facility] , [facility] echo transthoracicon [facility] echo transthoracic [facility] Main [place] [address] [place] [address] Echocardiogram Signed Patient: Eleuterio Cabral MR#: [id number] : 1945 Acct:[id number] Age/Sex: 76 / M ADM Date: 06/22/22 Loc: Room: [address] [place] [address] Type: DIS IN Attending Dr: Eleuterio Napier MD Ordering Provider: Nely Michelle APRN Date of Service: 06/22/22 ECH/ECH echo transthoracic: CHF Copies to: Rojas Rivas MD, [facility] Nely Michelle APRN Height: 71 in Weight: 360 lb Performed By: Rani Ramos [facility] BSA: 2.7 m2 BP: 115/65 mmHg HR: [...] At: 06/23/22951 Signed By: Rojas Rivas MD, [facility] 06/23/22 1045 [facility] NM pul perfusionon NM pul perfusion [facility] [place] [address] Nuclear Medicine Report Signed with Addenda Patient: Eleuterio Cabral MR#: [id number] : 1945 Acct:[id number] Age/Sex: 76 / M ADM Date: 06/22/22 Loc: Room: [address] [place] [address] Type: ADM IN Attending Dr: Eleuterio Napier MD Copies to: MD Fely Etienne MD Linda Obika, APRN Ordering Provider: Nely Michelle APRN Date of Service: 06/23/22 NM/NM pul perfusion: R/O PE ADDENDUM 1 Patient's nurse was notified of findings at the time of this interpretation at 1511 hours Impression dictated by: Fely Henderson M.D.06/23/2022 3:12 PM Dictation Location: [place] [address] Addendum Dictated By: MD Fely Henderson Addendum [...] Fely Henderson M.D.06/23/2022 3:06 PM Dictation Location: [place] [address] Transcribed By: [facility] 06/23/22 1506 Dictated By: Fely Henderson MD 06/23/22 1456 Signed By: 06/23/22 1506 Normal [facility] Partial Thromboplastin Timeo n 06-23-2022 aPTT Coag (Bld) [Time] 88.0 s High 25.1-36.5 [facility] Comment on above: Result Comment: PERF ORMED BY: [place] [address] PATHOLOGIST SAPPHIRE STYLUS GRINDER ADRIEN RAMIREZ M.D. Performed By: #### C BC, BMP #### [facility] [address] [place] [address] [place] aPTT Coag (Bld) [Time] 72.0 s High 25.1-36.5 [facility] Comment on above: Result Comment: PERF ORMED BY: [place] [address] PATHOLOGIST SAPPHIRE STYLUS GRINDER ADRIEN RAMIREZ M.D. Performed By: #### P TT #### [facility] [address] [place] [address] [place] aPTT Coag (Bld) [Time] 53.8 s High 25.1-36.5 [facility] Comment on above: Result Comment: PERF ORMED BY: [place] [address] PATHOLOGIST SAPPHIRE STYLUS GRINDER ADRIEN RAMIREZ M.D. Performed By: #### C BC, BMP #### [facility] [address] [place], [place] [address] [place] aPTT Coag (Bld) [Time] 43.5 s High 25.1-36.5 [facility] Comment on above: Result Comment: PERF ORMED BY: [place] [address] PATHOLOGIST SAPPHIRE STYLUS GRINDER ADRIEN RAMIREZ M.D. Performed By: #### C BC, BMP #### [facility] [address] [place] [address] [place] Prothrombin Time INRon 06-23 INR Coag (PPP) [Relative time] 1.3 {INR} Normal [facility] Comment on above: Result Comment: INR Therapeutic [...] Performed By: #### C BC, BMP #### [place] [address] [place] PT Coag (PPP) [Time] 14.1 s High 9.0-12.9 [facility] Comment on above: Performed By: #### C BC, BMP #### [facility] [address] [place] [address] INR Coag (PPP) [Relative time] 1.3 {INR} Normal [facility] Comment on above: Result Comment: INR Therapeutic [...] Performed By: #### C BC, BMP #### [address] PT Coag (PPP) [Time] 14.2 s High 9.0-12.9 [facility] Comment on above: Performed By: #### C BC, BMP #### [place] [address] Sodium, Urine (Random)on Sodium (U) [Moles/Vol] 105 mmol/L Normal [facility] Comment on above: Result Comment: No r eference range established PERFORMED BY: [place] [address] PATHOLOGIST SAPPHIRE STYLUS GRINDER ADRIEN RAMIREZ M.D. Performed By: #### U NA, UCREA #### [address] #### UR UREA NIT #### [facility] , Troponin I High Sensitivityo n 06-23-2022 Troponin I High Sensitivity 174 pg/mL Off scale high 0-20 [facility] Comment on above: Result Comment: Resu lts called at 0721 on 06/23/22 PERFORMED BY: [place] [address] PATHOLOGIST SAPPHIRE STYLUS GRINDER ADRIEN RAMIREZ M.D. Performed By: #### C BC, BMP #### [address] Troponin I High Sensitivity 244 pg/mL Off scale high 0-20 [facility] Comment on above: Result Comment: Resu lts called at 2345 on 06/22/22 PERFORMED BY: [place] [address] PATHOLOGIST SAPPHIRE STYLUS GRINDER ADRIEN RAMIREZ M.D. Performed By: #### C BC, CMP, HS TROP #### [place] [address] [place] Urine Urea Nitrogenon 2021 Urine Urea Nitrogen 392 mg/dL Normal Not Estab. [facility] Comment on above: Result Comment: Perf ormed at: CB - [facility] [address] [id number] Liturgical Music Director: Solo Burden PhD, Phone: [phone] PERFORMED BY: [place] [address] PATHOLOGIST SAPPHIRE STYLUS GRINDER ADRIEN RAMIREZ M.D. Performed By: #### U NA, UCREA #### [facility] [address] [place] [address] [place] #### UR UREA NIT #### [facility] , XR chest 1V portableon 06-23 XR chest 1V portable [facility] Main [place] [address] [place] [address] XRay Report Signed Patient: Eleuterio Cabral MR#: [id number] : 1945 Acct:[id number] Age/Sex: 76 / M ADM Date: 06/22/22 Loc: Room: [address] [place] [address] Type: ADM IN Attending Dr: Eleuterio Napier [...] Jayson Marsh M.D.06/23/2022 8:51 AM Dictation Location: [place] [address] Transcribed By: [facility] 06/23/22 0851 Dictated By: Jayson Marsh DO 06/23/22 0849 Signed By: 06/23/22 0851 Normal [facility] BNPon 06-22-2022 Natriuretic peptide B (Bld) [Mass/Vol] 37665.0 pg/mL Critically high <=1,800.0 [facility] Comment on above: Performed By: #### F T4, PSASC #### [facility] [address] [address] [address] Cole Echeverria CBC AUTO DIFFon 06-22-2022 BASO # 0.0 103/ul Normal 0.0-0.1 [facility] Comment on above: Performed By: #### T SH, FT3 #### [facility] [address] [place] [address] Dr. Cole Echeverria Basophils/100 WBC (Bld) 0.2 % Normal 0.2-2.0 [facility] Comment on above: Performed By: #### T SH, FT3 #### [facility] [address] [place] [address] Dr. Cole Echeverria EO # 0.3 103/ul Normal 0.0-0.7 [facility] Comment on above: Performed By: #### T SH, FT3 #### [facility] [address] [place] [address] Dr. Cole Echeverria Eosinophils/100 WBC (Bld) 2.8 % Normal 0.9-7.0 [facility] Comment on above: Performed By: #### T SH, FT3 #### [facility] [address] [place] [address] Dr. Cole Echeverria Erythrocyte distribution width (RBC) [Ratio] 14.5 % Normal 11.0-15.0 [facility] Comment on above: Performed By: #### T SH, FT3 #### [facility] [address] [place] [address] Dr. Cole Echeverria Hematocrit (Bld) [Volume fraction] 41.4 % Critically low 42.0-54.0 [facility] Comment on above: Performed By: #### T SH, FT3 #### [facility] [address] [place] [address] Dr. Cole Echeverria Hemoglobin (Bld) [Mass/Vol] 13.2 g/dL Critically low 14.0-18.0 [facility] Comment on above: Performed By: #### T SH, FT3 #### [facility] [address] [place] [address] Dr. Cole Echeverria IG # 0.05 10e3/ul Critically high 0.00-0.03 [facility] Comment on above: Performed By: #### T SH, FT3 #### [facility] [address] [place] [address] Dr. Cole Echeverria IG % 0.4 % Normal 0.0-0.5 [facility] Comment on above: Performed By: #### T SH, FT3 #### [facility] [address] [place] [address] Dr. Cole Echeverria LYMPH # 1.8 103/ul Normal 1.2-3.8 [facility] Comment on above: Performed By: #### T SH, FT3 #### [facility] [address] [place] [address] Dr. Cole Echeverria Lymphocytes/100 WBC (Bld) 14.7 % Critically low 20.5-60.0 [facility] Comment on above: Performed By: #### T SOPHIE, FT3 #### [facility] [address] [place] [address] Dr. Cole Echeverria MANUAL DIFF REQ NO Normal [facility] Comment on above: Performed By: #### T SOPHIE, FT3 #### [facility] [address] [place] [address] Dr. Cole Echeverria MCH (RBC) [Entitic mass] 29.8 pg Normal 25.9-34.0 [facility] Comment on above: Performed By: #### T SOPHIE, FT3 #### [facility] [address] [place] [address] Dr. Cole Echeverria MCHC (RBC) [Mass/Vol] 31.9 g/dL Normal 29.9-35.2 [facility] Comment on above: Performed By: #### T SOPHIE, FT3 #### [facility] [address] [place] [address] Dr. Cole Echeverria MCV (RBC) [Entitic vol] 93.5 fL Normal 80.0-94.0 [facility] Comment on above: Performed By: #### T SH, FT3 #### [facility] [address] [place] [address] Dr. Cole Echeverria MONO # 0.7 103/ul Normal 0.3-0.8 [facility] Comment on above: Performed By: #### T SOPHIE, FT3 #### [facility] [address] [place] [address] Dr. Cole Echeverria Monocytes/100 WBC (Bld) 6.1 % Normal 1.7-12.0 [facility] Comment on above: Performed By: #### T SH, FT3 #### [facility] [address] [place] [address] Dr. Cole Echeverria NEUT # 9.2 103/ul Critically high 1.4-6.5 [facility] Comment on above: Performed By: #### T SH, FT3 #### [facility] [address] [place] [address] Dr. Cole Echeverria Neutrophils/100 WBC (Bld) 75.8 % Critically high 43.0-75.0 [facility] Comment on above: Performed By: #### T SH, FT3 #### [facility] [address] [place] [address] Dr. Cole Echeverria Platelet mean volume (Bld) [Entitic vol] 10.2 fL Normal 9.5-13.5 [facility] Comment on above: Performed By: #### T SH, FT3 #### [facility] [address] [place] [address] Dr. Cole Echeverria PLT 185 103/ul Normal 150-450 [facility] Comment on above: Performed By: #### T SH, FT3 #### [facility] [address] [place] [address] Dr. Cole Echeverria RBC 4.43 106/ul Critically low 4.70-6.10 [facility] Comment on above: Performed By: #### T SH, FT3 #### [facility] [address] [place] [address] Dr. Cole Echeverria WBC 12.1 103/ul Critically high 4.0-11.0 [facility] Comment on above: Performed By: #### T SH, FT3 #### [facility] [address] [place] [address] Dr. Cole Echeverria [facility]05 SARS-CoV-2 (COVID-19) RNA HALEIGH+probe Ql (Unsp spec) Not detected Normal NOT DETECTED [facility] Comment on above: Result Comment: When [...] for this test is supported by the [employer] of Health and Human Service's declaration that [...] used). Performed By: #### C VDTBH #### [facility] [address] [address] [address] Cole Echeverria D-DIMERon 06-22-2022 D-DIMER 15.71 mg/L FEU Critically high <=0.59 [facility] Comment on above: Performed By: #### F T4, PSASC #### [facility] [address] [address] [address] Cole Echeverria D-DIMER COMMENTS SEE BELOW Normal [facility] Comment on above: Result Comment: Incr eases [...] Performed By: #### F T4, PSASC #### [facility] [address] [address] [address] Cole Echeverria PROF 14(COMP METB)on 08-18-2 022 Albumin [Mass/Vol] 2.9 g/dL Critically low 3.4-5.0 Th e [facility] Comment on above: Performed By: #### F T4, PSASC #### [facility] [address] [address] [address] Cole Echeverria Albumin/Globulin [Mass ratio] 0.7 {ratio} Normal [facility] Comment on above: Performed By: #### F T4, PSASC #### [facility] [address] [address] [address] Cole Echeverria ALP [Catalytic activity/Vol] 89 U/L Normal 46-116 [facility] Comment on above: Performed By: #### F T4, PSASC #### [facility] [address] [place] [address] Dr. Cole Echeverria ALT [Catalytic activity/Vol] 21 U/L Normal 16-63 [facility] Comment on above: Performed By: #### F T4, PSASC #### [facility] [address] [place] [address] Dr. Cole Echeverria Anion gap [Moles/Vol] 11.8 mmol/L Normal [facility] Comment on above: Performed By: #### F T4, PSASC #### [facility] [address] [place] [address] Dr. Cole Echeverria AST [Catalytic activity/Vol] 19 U/L Normal 15-37 [facility] Comment on above: Performed By: #### F T4, PSASC #### [facility] [address] [address] [address] Cole Echeverria Bilirubin [Mass/Vol] 0.8 mg/dL Normal 0.2-1.0 [facility] Comment on above: Performed By: #### F T4, PSASC #### [facility] [address] [place] [address] Dr. Cole Echeverria Calcium [Mass/Vol] 9.0 mg/dL Normal 8.5-10.1 [facility] Comment on above: Performed By: #### F T4, PSASC #### [facility] [address] [place] [address] Dr. Cole Echeverria Chloride [Moles/Vol] 101 mmol/L Normal 98-107 [facility] Comment on above: Performed By: #### F T4, PSASC #### [facility] [address] [place] [address] Dr. Cole Echeverria CO2 [Moles/Vol] 29.3 mmol/L Normal 21.0-32.0 [facility] Comment on above: Performed By: #### F T4, PSASC #### [facility] [address] [place] [address] Dr. Cole Echeverria Creatinine [Mass/Vol] 2.25 mg/dL Critically high 0.70-1.30 [facility] Comment on above: Performed By: #### F T4, PSASC #### [facility] [address] [place] [address] Dr. Cole Echeverria EGFR-AF CENTRAL AFRICAN 35 mL/min/1.73m2 Critically low >=60 [facility] Comment on above: Performed By: #### F T4, PSASC #### [facility] [address] [place] [address] Dr. Cole Echeverria EGFR-NON AF CENTRAL AFRICAN 29 mL/min/1.73m2 Critically low >=60 [facility] Comment on above: Performed By: #### F T4, PSASC #### [facility] [address] [place] [address] Dr. Cole Echeverria Globulin (S) [Mass/Vol] 4.3 g/dL Normal [facility] Comment on above: Performed By: #### F T4, PSASC #### [facility] [address] [place] [address] Dr. Cole Echeverria Glucose [Mass/Vol] 116 mg/dL Critically high 74-106 [facility] Comment on above: Performed By: #### F T4, PSASC #### [facility] [address] [place] [address] Dr. Cole Echeverria Potassium [Moles/Vol] 5.1 mmol/L Normal 3.5-5.1 [facility] Comment on above: Performed By: #### F T4, PSASC #### [facility] [address] [place] [address] Dr. Cole Echeverria Protein [Mass/Vol] 7.2 g/dL Normal 6.4-8.2 [facility] Comment on above: Performed By: #### F T4, PSASC #### [facility] [address] [place] [address] Dr. Cole Echeverria Sodium [Moles/Vol] 137 mmol/L Normal 136-145 [facility] Comment on above: Performed By: #### F T4, PSASC #### [facility] [address] [place] [address] Dr. Cole Echeverria Urea nitrogen [Mass/Vol] 49.0 mg/dL Critically high 7.0-18.0 [facility] Comment on above: Performed By: #### F T4, PSASC #### [facility] [address] [place] [address] Dr. Cole Echeverria Urea nitrogen/Creatinine [Mass ratio] 21.8 mg/mg Normal [facility] Comment on above: Performed By: #### F T4, PSASC #### [facility] [address] [place] [address] Dr. Cole Echeverria PROTIMEon 06-22-2022 INR Coag (PPP) [Relative time] 1.06 {INR} Normal [facility] Comment on above: Performed By: #### T SH, FT3 #### [facility] [address] [place] [address] Dr. Cole Echeverria INR GUIDELINES SEE BELOW Normal [facility] Comment on above: Result Comment: MÓNICA RED INR: 2.0 - 3.0 CONDITIONS NOT LISTED BELOW 2.5 - 3.5 FOR PROSTHETIC HEART VALVE REPLACEMENT 2.5 - 3.5 RECURRENT THROMBOSIS Performed By: #### T SH, FT3 #### [facility] [address] [place] [address] Dr. Cole Echeverria PT Coag (PPP) [Time] 11.4 s Normal 9.0-11.6 [facility] Comment on above: Performed By: #### T SH, FT3 #### [facility] [address] [place] [address] Dr. Cole Echeverria PTTon 06-22-2022 aPTT Coag (Bld) [Time] 33.9 s Normal 22.3-36.2 [facility] Comment on above: Performed By: #### T SH, FT3 #### [facility] [address] [address] [address] Cole Echeverria TROPONIN, HIGH SENSITIVITYon 06-22-2022 HSTROP 345.5 pg/mL Critically high 4.0-76.1 [facility] Comment on above: Result Comment: CUT- OFF POINTS HAVE BEEN ESTABLISHED BASED ON THE FOURTH UNIVERSAL DEFINITIONS OF MYOCARDIAL INFARCTION. THE UPPER REFERENCE LIMIT (URL) OF TROPONIN, DEFINED THE 99TH PERCENTILE OF cTnI DISTRIBUTION IN A REFERENCE POPULATION, HAS BEEN CONFIRMED THE DECISION THRESHOLD FOR [place] DIAGNOSIS. Performed By: #### F T4, PSASC #### [facility] [address] [address] [address] Cole Echeverria US JUAREZ DOP LEG [...] by: LAYO DAVISON Date: 2022-06-22 19:37 Normal [facility] XR CHEST 1 Von 06-22-2022 XR CHEST 1 V ONE-VIEW CHEST RADIOGRAPH, 06/22/2022 4:32 PM EDT COMPARISON: None. CLINICAL HISTORY: SHORTNESS OF BREATH Findings and impression: 1. Borderline pulmonary venous hypertension/pulmonar y vascular congestion. 2. Borderline heart size. 3. No acute osseous abnormality. Electronically authenticated by: Richard PATRICIA Date: 2022-06-22 17:48 Normal [facility] CBC AUTO DIFFon 04-05-2022 BASO # 0.0 103/ul Normal 0.0-0.1 [facility] Comment on above: Performed By: #### T SH, FT3 #### [facility] [address] [place] [address] Dr. Cole Echeverria Basophils/100 WBC (Bld) 0.4 % Normal 0.2-2.0 [facility] Comment on above: Performed By: #### T SH, FT3 #### [facility] [address] [place] [address] Dr. Cole Echeverria EO # 0.2 103/ul Normal 0.0-0.7 [facility] Comment on above: Performed By: #### T SOPHIE, FT3 #### [facility] [address] [place] [address] Dr. Cole Echeverria Eosinophils/100 WBC (Bld) 2.3 % Normal 0.9-7.0 [facility] Comment on above: Performed By: #### T SOPHIE, FT3 #### [facility] [address] [place] [address] Dr. Cole Echeverria Erythrocyte distribution width (RBC) [Ratio] 13.0 % Normal 11.0-15.0 [facility] Comment on above: Performed By: #### T SOPHIE, FT3 #### [facility] [address] [place] [address] Dr. Cole Echeverria Hematocrit (Bld) [Volume fraction] 45.7 % Normal 42.0-54.0 [facility] Comment on above: Performed By: #### T SOPHIE, FT3 #### [facility] [address] [place] [address] Dr. Cole Echeverria Hemoglobin (Bld) [Mass/Vol] 14.4 g/dL Normal 14.0-18.0 [facility] Comment on above: Performed By: #### T SH, FT3 #### [facility] [address] [place] [address] Dr. Cole Echeverria IG # 0.02 10e3/ul Normal 0.00-0.03 [facility] Comment on above: Performed By: #### T SOPHIE, FT3 #### [facility] [address] [address] [address] Cole Echeverria IG % 0.3 % Normal 0.0-0.5 [facility] Comment on above: Performed By: #### T SH, FT3 #### [facility] [address] [place] [address] Dr. Cole Echeverria LYMPH # 1.8 103/ul Normal 1.2-3.8 [facility] Comment on above: Performed By: #### T SH, FT3 #### [facility] [address] [place] [address] Dr. Cole Echeverria Lymphocytes/100 WBC (Bld) 22.6 % Normal 20.5-60.0 [facility] Comment on above: Performed By: #### T SOPHIE, FT3 #### [facility] [address] [place] [address] Dr. Cole Echeverria MANUAL DIFF REQ NO Normal [facility] Comment on above: Performed By: #### T SOPHIE, FT3 #### [facility] [address] [place] [address] Dr. Cole Echeverria MCH (RBC) [Entitic mass] 31.1 pg Normal 25.9-34.0 [facility] Comment on above: Performed By: #### T SOPHIE, FT3 #### [facility] [address] [place] [address] Dr. Cole Echeverria MCHC (RBC) [Mass/Vol] 31.5 g/dL Normal 29.9-35.2 [facility] Comment on above: Performed By: #### T SH, FT3 #### [facility] [address] [place] [address] Dr. Cole Echeverria MCV (RBC) [Entitic vol] 98.7 fL Critically high 80.0-94.0 [facility] Comment on above: Performed By: #### T SH, FT3 #### [facility] [address] [place] [address] Dr. Cole Echeverria MONO # 0.5 103/ul Normal 0.3-0.8 [facility] Comment on above: Performed By: #### T SOPHIE, FT3 #### [facility] [address] [place] [address] Dr. Cole Echeverria Monocytes/100 WBC (Bld) 5.7 % Normal 1.7-12.0 [facility] Comment on above: Performed By: #### T SH, FT3 #### [facility] [address] [place] [address] Dr. Cole Echeverria NEUT # 5.4 103/ul Normal 1.4-6.5 [facility] Comment on above: Performed By: #### T SH, FT3 #### [facility] [address] [place] [address] Dr. Cole Echeverria Neutrophils/100 WBC (Bld) 68.7 % Normal 43.0-75.0 [facility] Comment on above: Performed By: #### T SH, FT3 #### [facility] [address] [place] [address] Dr. Cole Echeverria Platelet mean volume (Bld) [Entitic vol] 11.2 fL Normal 9.5-13.5 [facility] Comment on above: Performed By: #### T SH, FT3 #### [facility] [address] [place] [address] Dr. Cole Echeverria PLT 242 103/ul Normal 150-450 [facility] Comment on above: Performed By: #### T SH, FT3 #### [facility] [address] [place] [address] Dr. Cole Echeverria RBC 4.63 106/ul Critically low 4.70-6.10 [facility] Comment on above: Performed By: #### T SH, FT3 #### [facility] [address] [place] [address] Dr. Cole Echeverria WBC 7.8 103/ul Normal 4.0-11.0 [facility] Comment on above: Performed By: #### T SH, FT3 #### [facility] [address] [place] [address] Dr. Cole Echeverria FREE T3on 04-05-2022 FREE T3 1.39 pg/mlL Critically low 2.18-3.98 [facility] Comment on above: Performed By: #### B MP, ALT, AST, TSH, FT3, LIPID #### [facility] [address] [address] [address] Cole Echeverria FREE T4on 04-05-2022 Free T4 [Mass/Vol] 1.47 ng/dL Critically high 0.76-1.46 [facility] Comment on above: Performed By: #### F T4, PSASC #### [facility] [address] [address] [address] Cole Echeverria GLYCOHEMOGLOBIN A1Con 2021 ADA RECOMMENDATION SEE BELOW Normal [facility] Comment on above: Result Comment: ADA RECOMMENDED LIMIT 4.0 - 6.0 ADA THERAPEUTIC TARGET < 7.0 ACTION SUGGESTED > 7.0 Performed By: #### T SH, FT3 #### [facility] [address] [place] [address] Dr. Cole Echeverria Glucose [Mass/Vol] 103 mg/dL Normal [facility] Comment on above: Performed By: #### T SH, FT3 #### [facility] [address] [place] [address] Dr. Cole Echeverria HbA1c (Bld) [Mass fraction] 5.2 % Normal 4.5-6.2 [facility] Comment on above: Performed By: #### T SH, FT3 #### [facility] [address] [place] [address] Dr. Cole Echeverria LIPID PROFILEon 04-05-2022 CHOL-HDL RATIO NORM SEE BELOW Normal [facility] Comment on above: Result Comment: 3.3 - 4.4 LOW RISK 4.4 - 7.1 AVERAGE RISK 7.1 - 11.0 MODERATE RISK >11.0 HIGH RISK Performed By: #### T SH, FT3 #### [facility] [address] [place] [address] Dr. Cole Echeverria Cholesterol [Mass/Vol] 251 mg/dL Critically high <=200 [facility] Comment on above: Performed By: #### T SH, FT3 #### [facility] [address] [place] [address] Dr. Cole Echeverria Cholesterol in HDL [Mass/Vol] 36 mg/dL Critically low 40-60 [facility] Comment on above: Performed By: #### T SH, FT3 #### [facility] [address] [place] [address] Dr. Cole Echeverria Cholesterol in LDL [Mass/Vol] 189.8 mg/dL Normal [facility] Comment on above: Performed By: #### T SH, FT3 #### [facility] [address] [place] [address] Dr. Cole Echeverria Cholesterol.total/Ch olesterol in HDL [Mass ratio] 7.0 {ratio} Normal [facility] Comment on above: Performed By: #### T SH, FT3 #### [facility] [address] [place] [address] Dr. oCle Echeverria HDL NORMAL > or = 60 mg/dl - LO W CARDIOVASCULAR RISK <40 mg/dl - HIGH CARDIOVASCULAR RISK Normal [facility] Comment on above: Performed By: #### T SH, FT3 #### [facility] [address] [place] [address] Dr. Cole Echeverria LDL CALC NORMAL SEE BELOW Normal [facility] Comment on above: Result Comment: <100 mg/dl OPTIMAL 100 - 129 mg/dl NEAR OR ABOVE OPTIMAL 130 - 159 mg/dl BORDERLINE HIGH 160 - 189 mg/dl HIGH >190 mg/dl VERY HIGH Performed By: #### T SH, FT3 #### [facility] [address] [place] [address] Dr. Cole Echeverria Triglyceride [Mass/Vol] 126 mg/dL Normal <=150 [facility] Comment on above: Performed By: #### T SH, FT3 #### [facility] [address] [place] [address] Dr. Cole Echeverria VLDL CALC 25.2 mg/dL Normal [facility] Comment on above: Performed By: #### T SH, FT3 #### [facility] [address] [place] [address] Dr. Cole Echeverria PROF CHEM 8 (BAS METB)on Anion gap [Moles/Vol] 11.8 mmol/L Normal [facility] Comment on above: Performed By: #### B MP, ALT, AST, TSH, FT3, LIPID #### [facility] [address] [address] [address] Cole Echeverria Calcium [Mass/Vol] 8.9 mg/dL Normal 8.5-10.1 [facility] Comment on above: Performed By: #### B MP, ALT, AST, TSH, FT3, LIPID #### [facility] [address] [address] [address] Cole Echeverria Chloride [Moles/Vol] 104 mmol/L Normal 98-107 [facility] Comment on above: Performed By: #### B MP, ALT, AST, TSH, FT3, LIPID #### [facility] [address] [place] [address] Dr. Cole Echeverria CO2 [Moles/Vol] 29.9 mmol/L Normal 21.0-32.0 [facility] Comment on above: Performed By: #### B MP, ALT, AST, TSH, FT3, LIPID #### [facility] [address] [place] [address] Dr. Cole Echeverria Creatinine [Mass/Vol] 1.35 mg/dL Critically high 0.70-1.30 [facility] Comment on above: Performed By: #### B MP, ALT, AST, TSH, FT3, LIPID #### [facility] [address] [place] [address] Dr. Cole Echeverria EGFR-AF CENTRAL AFRICAN >60 Normal >=60 [facility] Comment on above: Performed By: #### B MP, ALT, AST, TSH, FT3, LIPID #### [facility] [address] [place] [address] Dr. Cole Echeverria EGFR-NON AF CENTRAL AFRICAN 52 mL/min/1.73m2 Critically low >=60 [facility] Comment on above: Performed By: #### B MP, ALT, AST, TSH, FT3, LIPID #### [facility] [address] [place] [address] Dr. Cole Echeverria Glucose [Mass/Vol] 91 mg/dL Normal 74-106 [facility] Comment on above: Performed By: #### B MP, ALT, AST, TSH, FT3, LIPID #### [facility] [address] [place] [address] Dr. Cole Echeverria Potassium [Moles/Vol] 4.7 mmol/L Normal 3.5-5.1 [facility] Comment on above: Performed By: #### B MP, ALT, AST, TSH, FT3, LIPID #### [facility] [address] [place] [address] Dr. Cole Echeverria Sodium [Moles/Vol] 141 mmol/L Normal 136-145 [facility] Comment on above: Performed By: #### B MP, ALT, AST, TSH, FT3, LIPID #### [facility] [address] [place] [address] Dr. Cole Echeverria Urea nitrogen [Mass/Vol] 35.0 mg/dL Critically high 7.0-18.0 [facility] Comment on above: Performed By: #### B MP, ALT, AST, TSH, FT3, LIPID #### [facility] [address] [place] [address] Dr. Cole Echeverria Urea nitrogen/Creatinine [Mass ratio] 25.9 mg/mg Normal [facility] Comment on above: Performed By: #### B MP, ALT, AST, TSH, FT3, LIPID #### [facility] [address] [place] [address] Dr. Cole CESAROTotawnya 04-05-2022 AST [Catalytic activity/Vol] 31 U/L Normal 15-37 [facility] Comment on above: Performed By: #### T SH, FT3 #### [facility] [address] [place] [address] Dr. Cole Echeverria SGPTon 04-05-2022 ALT [Catalytic activity/Vol] 26 U/L Normal 16-63 [facility] Comment on above: Performed By: #### B MP, ALT, AST, TSH, FT3, LIPID #### [facility] [address] [place] [address] Dr. Cole Echeverria TSHon 04-05-2022 TSH 0.944 uIU/mL Normal 0.358-3.740 [facility] Comment on above: Performed By: #### B MP, ALT, AST, TSH, FT3, LIPID #### [facility] [address] [place], [place] [address] Dr. Cole Echeverria TSH RANGE SEE BELOW Normal [facility] Comment on above: Result Comment: <0.3 4 UIU/ml HYPERTHYROID 0.34-5.60 UIU/ml EUTHYROID >5.60 UIU/ml HYPOTHYROID Performed By: #### B MP, ALT, AST, TSH, FT3, LIPID #### [facility] [id number] Cole Echeverria US SCROTUMon 02-27-2022 US [...] ANETTE GAMBOA Date: 2022-02-27 08:15 Normal [facility] Vital Signs Date Time Vital Sign Value Performing Clinician Facility 01-04-2023 11:33-0500 Body height 180.34 cm Jorge Camejo Work Phone: [facility] DO Work Phone: 01-04-2023 11:33-0500 Body mass index (BMI) [Ratio] 49.51 kg/m2 Jorge A Naderer Work Phone: [facility] 250 DO Work Phone: 01-04-2023 11:33-0500 Body surface area Derived from formula 2.69 m2 Jorge Masters Naderer Work Phone: [facility] 250 DO Work Phone: 01-04-2023 11:33-0500 Body weight 161.03 kg Jorge Masters Naderer Work Phone: [facility] 250 DO Work Phone: 01-04-2023 11:33-0500 Diastolic blood pressure 70 mm[Hg] Jorge Masters Naderer Work Phone: [facility] 250 DO Work Phone: 01-04-2023 11:33-0500 Heart rate 64 /min Jorge Masters Naderer Work Phone: [facility] 250 DO Work Phone: 01-04-2023 11:33-0500 Systolic blood pressure 136 mm[Hg] Jorge Xieerer Work Phone: [facility] [employer] 250 DO Work Phone: 10-12-2022 14:00-0500 Body height 180.34 cm Oscar Walters Other [facility] Other 10-12-2022 14:00-0500 Body mass index (BMI) [Ratio] 49.67 kg/m2 Oscar Walters Other [facility] Other 10-12-2022 14:00-0500 Body temperature 96.3 [degF] Oscar Walters Other [facility] Other 10-12-2022 14:00-0500 Body weight 161.57 kg Oscar Walters Other [facility] Other 10-12-2022 14:00-0500 Diastolic blood pressure 73 mm[Hg] Oscar Walters Other [facility] Other 10-12-2022 14:00-0500 Respiratory rate 20 /min Oscar Walters Other [facility] Other 10-12-2022 14:00-0500 SaO2% (BldA) [Mass fraction] 95 % Oscar Walters Other [facility] Other 10-12-2022 14:00-0500 Systolic blood pressure 126 mm[Hg] Oscar Walters Other [facility] Other 08-31-2022 17:40-0400 Body height 180.34 cm Oscar Walters Other [facility] Other 08-31-2022 17:40-0400 Body mass index (BMI) [Ratio] 48.98 kg/m2 Oscar Walters Other [facility] Other 08-31-2022 17:40-0400 Body temperature 96.4 [degF] Oscar Walters Other [facility] Other 08-31-2022 17:40-0400 Body weight 159.3 kg Oscar Walters Other [facility] Other 08-31-2022 17:40-0400 Diastolic blood pressure 82 mm[Hg] Oscar Walters Other [facility] Other 08-31-2022 17:40-0400 Respiratory rate 20 /min Oscar Walters Other [facility] Other 08-31-2022 17:40-0400 SaO2% (BldA) [Mass fraction] 97 % Oscar Walters Other [facility] Other 08-31-2022 17:40-0400 Systolic blood pressure 144 mm[Hg] Oscar Walters Other [facility] Other 07-12-2022 11:36-0400 Body height 180.34 cm Jorge A Naderer Work Phone: [employer] 250 DO Work Phone: 07-12-2022 11:36-0400 Body mass index (BMI) [Ratio] 51.05 kg/m2 Jorge A Naderer Work Phone: [employer] 250 DO Work Phone: 07-12-2022 11:36-0400 Body surface area Derived from formula 2.73 m2 Jorge A Naderer Work Phone: [employer] 250 DO Work Phone: 07-12-2022 11:36-0400 Body weight 166.02 kg Jorge A Naderer Work Phone: [employer] 250 DO Work Phone: 07-12-2022 11:36-0400 Diastolic blood pressure 70 mm[Hg] Jorge A [facility]aderer Work Phone: [facility] 250 DO Work Phone: 07-12-2022 11:36-0400 Heart rate 100 /min Jorge A Naderer Work Phone: [facility] 250 DO Work Phone: 07-12-2022 11:36-0400 Systolic blood pressure 110 mm[Hg] Jorge Camejo Work Phone: [facility] 250 DO Work Phone: 06-22-2022 00:00-0400 65 1 Jorge Camejo Work Phone: [facility] 250 DO Work Phone: Comment on above: [id number] Encounters Encounter Date Encounter Type Care Provider Facility Start: 11-14-2023 End: 11-14-2023 ambulatory MARIE SALCEDO Not Available Start: 10-03-2023 End: 10-03-2023 ambulatory MARIE SALCEDO Not Available Start: 05-03-2023 ambulatory JAVIER WALLIS . Facility: Start: 01-25-2023 End: 01-26-[address] JORGE CAMEJO Facility:[facility] Start: 01-04-2023 Office outpatient visit 25 minutes Jorge Camejo Work Phone: [facility] 250 DO Work Phone: Start: 01-04-2023 ambulatory Jorge Feliciano y: Start: 12-07-2022 End: 12-08-[address] JORGE CAMEJO Facility:[facility] Start: 12-04-2022 End: 12-04-2022 ambulatory Oscar Walters Other [facility] Other Start: 12-04-2022 Telephone encounter Oscar Walters [facility] Start: 10-12-2022 End: 10-12-2022 ambulatory Oscar Walters Other [facility] Other Start: 10-12-2022 Office outpatient visit 25 minutes Oscar Walters [facility] Start: 10-03-2022 End: 10-04-[address] JORGE CAMEJO Facility:[facility] Start: 09-14-2022 End: 09-15-[address] JORGE CAMEJO Facility:[facility] Start: 09-04-2022 End: 09-04-2022 ambulatory Oscar Walters Other [facility] Other Start: 09-04-2022 Telephone encounter Oscar Walters [facility] Start: 08-31-2022 End: 08-31-2022 ambulatory Oscar Walters Other [facility] Other Start: 08-31-2022 Office outpatient visit 25 minutes Oscar Walters [facility] Start: 07-12-2022 End: 07-13-[address] JORGE TREVIÑO Facility:[facility] Start: 07-12-2022 Office outpatient visit 40 minutes Jorge Camejo Work Phone: [facility] 250 DO Work Phone: Start: 07-12-2022 ambulatory Jorge Treviño Facilit y:[id number] Start: 06-24-2022 ambulatory Jorge Treviño Facilit y:[id number] Start: 06-23-2022 ambulatory Jorge Treviño Facilit y:[facility] Start: 06-23-2022 ambulatory Jorge Treviño Facilit y:[id number] Start: 06-23-[address] Jorge Camejo Facility:[id number] Start: 06-23-2022 End: 06-24-2022 Evaluation and management of inpatient Patel Ugarte Facility:[facility] Start: 06-22-2022 End: 06-22-[address] LISA [...] 07-25-2018 End: 07-26-2018 Patient encounter DEFAULT PHYSICIAN Facility:[facility] Procedures Date Procedure Procedure Detail Performing Clinician Start: 04-05-[address] JORGE HILTON Comment on above: Performed By: #### F T4, PSASC #### [facility] [address] [place] [address] Dr. Cole Echeverria Arthroscopy of knee Jorge hilton Work Phone: Colonoscopy Jorge Camejo Work Phone: Removal of thrombus Jorge hilton Work Phone: Plan of Treatment Date Care Activity Detail Author Start: 01-17-2024 FUV, Provider: Jorge Treviño, Status: Pen, Time: 11:20 AM [facility]UV, Provider: Jorge Treviño, Status: Pen, Time: 11:20 AM [facility] 250 DO Work Phone: Start: 01-11-2023 FUV, Provider: Jorge Treviño, Status: Pen, Time: 11:10 AM FUV, Provider: Jorge Treviño, Status: Pen, Time: 11:10 AM [facility] 250 DO Work Phone: Immunizations Immunization Date Immunization Notes Care Provider Maria A hernandez 10-01-2022 Fluad Quadrivalent 0 .5 ML Intramuscular Prefilled Syringe [facility] Work Phone: 10-19-2021 Pfizer-BioNTech COVI D-19 Vacc 30 MCG/0.3ML Intramuscular Suspension Jorge Camejo Work Phone: [facility] 250 DO Work Phone: 07-06-2021 influenza, seasonal, injectable Jorge Camejo Work Phone: [facility] 250 DO Work Phone: Comment on above: Series: 01-11-2021 Moderna COVID-19 Vac cine 100 MCG/0.5ML Intramuscular Suspension Jorge Camejo [facility]: [facility] Work Phone: 12-14-2020 Moderna COVID-19 Vac cine 100 MCG/0.5ML Intramuscular Suspension Jorge [facility]amejo [facility] Work Phone: 08-05-2015 pneumococcal polysaccharide vaccine, 23 valent Jorge Camejo Work Phone: [facility] 250 DO Work Phone: Payers Date Payer Category Payer Self-pay 1958 Medicare [id number] 2.1 [id number] 1958 Medicare [id number] 1958 Unknown [id number] 2. [id number] 1945 Unknown [id number] 2.16. 840.1.189723.3.579.2.356 1945 Unknown [id number] 2.16. 840.1.156667.3.579.2.356 1946 Unknown [id number] 2.16. 840.1.199806.3.579.2.356 1946 Unknown [id number] 2.16. 840.1.100293.3.579.2.356 1946 Unknown [id number] 2.16. 840.1.362133.3.579.2.356 1946 Unknown [id number] 2.16.84 0.1.704560.3.579.2.593 1946 Unknown [id number] 2.16.84 0.1.013863.3.579.2.593 1946 Unknown [id number] 2.16.84 0.1.887087.3.579.2.593 1946 Unknown [id number] 2.16.84 0.1.335781.3.579.2.593 1946 Unknown [id number] 2.16.84 0.1.374581.3.579.2.593 1946 Unknown [id number] 2.16.84 0.1.714753.3.579.2.593 1946 Unknown [id number] 2.16.84 0.1.463028.3.579.2.593 1946 Unknown [id number] 2.16.84 0.1.848293.3.579.2.593 1946 Unknown [id number] 2.16.84 0.1.221988.3.579.2.593 1946 Unknown [id number] 2.16.84 0.1.314237.3.579.2.593 1946 Unknown [id number] 2.16.84 0.1.741917.3.579.2.593 1946 Unknown [id number] 2.16.84 0.1.238311.3.579.2.593 1946 Unknown [id number] 2.16.84 0.1.088247.3.579.2.1259 1946 Unknown [id number] 2.16.840 .1.654553.3.579.2.1259 Unknown Unknown [id number] 2.16.8 40.1.577593.3.579.2.531 Social History Date Type Detail Facility No alcohol use No alcohol use [facility] 250 DO Work Phone: Sex Assigned At Sex Assigned At [facility] Other NEGATED: Highlighted row Denies Caffeine use Denies Caffeine use [facility] 250 DO Work Phone: Consultation note [...] imaging study or sooner if needed. [facility] Evaluation note 10-12-2022 Note Date & [...] needed. Patient is high risk for recurrent MANSIH considering diuretics, morbid obesity and history of [...] provoked by travel, COVID 19 and immobility. [facility] Other Consultation note 09-14-2022 Note Date & [...] and patient agrees with this plan. [facility] Evaluation note 08-31-2022 Note Date & [...] pulmonary if shortness of breath is worse. [facility] Other Consultation note 06-15-2022 Note Date & [...] heel. Activities such as standing, walking and scheduling agent hours are most painful. Current medications include [...] up in the clinic post procedure. [facility] Consultation note 03-30-2022 Note Date & [...] in three months' time unless otherwise indicated. [facility] Signed and Approved by: DOMO SANCHEZ . 04/06/2022 16:04:00 [facility] Consultation note 02-16-2022 Note Date & [...] of care and all questions were answered. [facility] Signed and Approved by: DOMO SANCHEZ . 02/23/2022 13:58:00 [facility] Evaluation note Note Date & Type Note Facility Evaluation note No Information [facility] Other History general Narrative - Reported Note [...] PULMONARY EMBOLISM ASSOCIATED WITH COVID 19 06/22/2022 [facility] Other Summary Purpose Family History No Family [...] Directives Records Found Chief Complaint * 07/05/2022 [facility] SP EKOS. * ELEUTERIO CABRAL is [...] section and content) DATE CREATED AUTHOR 08/22/2018 [facility] DATE CREATED AUTHOR AUTHOR'S ORGANIZ ATION 12/09/2022 [facility] DATE CREATED AUTHOR AUTHOR'S ORGANIZ ATION 01/05/2023 [facility] DATE CREATED AUTHOR AUTHOR'S ORGANIZ ATION 01/06/2023 [employer] DATE CREATED AUTHOR AUTHOR'S ORGANIZ ATION 01/28/2023 [facility] DATE CREATED AUTHOR AUTHOR'S ORGANIZ ATION 11/16/2023 [facility] REASON FOR VISIT (unrecogniz ed section and content) RENAL HOSP F/UClinical2 [facility] follow up MANISH on CKD stage IICLARIFY [...] BE BASED ON THE PRIMARY CLINICAL RECORDS. [facility]. provides no warranty or guarantee of the accuracy or completeness of information in this document.
[2023-11-26 15:59] LABS: Basophils Percent Auto 0.5 % (0.2-2.0); Eosinophils Absolute Auto 0.1 10^3/uL (0.0-0.7); Eosinophils Percent Auto 1.6 % (0.9-7.0); Hematocrit 50.6 % (42.0-54.0); Hemoglobin 16.3 g/dL (14.0-18.0); Immature Granulocytes Abs Auto 0.02 10^3/uL (0.00-0.03); Immature Granulocytes Pct Auto 0.2 % (0.0-0.5); Lymphocytes Percent Auto 23.7 % (20.5-60.0); Mean Corpuscular HGB Conc 32.2 g/dL (29.9-35.2); Mean Corpuscular Hemoglobin 30.2 pg (25.9-34.0); Mean Corpuscular Volume 93.7 fL (80.0-94.0); Mean Platelet Volume 10.3 fL (9.5-13.5); Monocytes Absolute Auto 0.7 10^3/uL (0.3-0.8); Monocytes Percent Auto 7.7 % (1.7-12.0); Neutrophils Absolute Auto 5.7 10^3/uL (1.4-6.5); Neutrophils Percent Auto 66.3 % (43.0-75.0); Platelet Count 306 10^3/uL (150-450); Red Cell Distribution Width 13.2 % (11.0-15.0); White Blood Count 8.6 10^3/uL (4.0-11.0)
[2023-11-26 16:04] LABS: Anion Gap 15.8; Calcium 9.5 mg/dL (8.5-10.1); Carbon Dioxide 26.4 mmol/L (21.0-32.0); Chloride 100 mmol/L (98-107); Estimated GFR (African America >60 (>=60); Estimated GFR (Non-African Ame 50 (>=60); Glucose 104 mg/dL (74-106); Potassium 4.2 mmol/L (3.5-5.1); Sodium 138 mmol/L (136-145)
[2023-11-26 16:08] LABS: Estimated Average Glucose 123 mg/dL; Glycohemoglobin A1C 5.9 % (4.5-6.2)
[2023-11-26 16:20] LABS: Alanine Aminotransferase 17 U/L (16-63); Albumin Globulin Ratio 0.7; Albumin Level 3.4 g/dL (3.4-5.0); Alkaline Phosphatase 92 U/L (46-116); Aspartate Amino Transferase 15 U/L (15-37); Bilirubin Direct 0.2 mg/dL (0.0-0.2); Bilirubin Total 0.7 mg/dL (0.2-1.0); Chol HDL Ratio 5.2; Cholesterol 230 mg/dL (<=200); Free T3 2.54 pg/mL (2.18-3.98); HDL Cholesterol 44 mg/dL (40-60); Thyroid Stimulating Hormone 0.687 uIU/mL (0.358-3.740); Total Protein 8.4 g/dL (6.4-8.2); Triglycerides 102 mg/dL (<=150); VLDL CHOLESTEROL 20.4 mg/dL
[2023-11-26 16:27] LABS: Free T4 1.39 ng/dL (0.76-1.46)
[2023-11-26 16:35] LABS: Prostate Specific Antigen Dx 0.77 ng/mL (<=4.00)
== END 2023-11-26 14:47 | disposition home or self-care (01) ==
LOC: LAB 14:47
PROVIDERS: PCP Family Medicine; Visit Provider Family Medicine
DX: N18.32 Chronic kidney disease, stage 3b (principal); I10 Essential (primary) hypertension; R73.03 Prediabetes; Z79.899 Other long term (current) drug therapy; E78.5 Hyperlipidemia, unspecified; Z12.5 Encounter for screening for malignant neoplasm of prostate; E03.9 Hypothyroidism, unspecified
CPT/HCPCS: 36415; 80048; 80061; 80076; 82570; 83036; 84153; 84156; 84439; 84443; 84481; 85025

== ENCOUNTER 2024-01-24 12:25 | Outpatient (OUT) | payer MEDICARE, OTHER, SELFPAY ==
--- NOTE | 2024-01-24 12:36 | P.CN_ITS ---
Consult Note: HPI Data of Consult Patient: known to practice within the last 3 years Requesting Physician: Althea Haney NP Primary Care Provider: Jorge Ortez MD Consult Narrative Reason for consult: f/u Narrative: Eleuterio Cabral a pleasant 77 year old male presents for evaluation and management of chronic pain in low back buttocks and groin, as well as left knee pain. Today rating pain 4-5/10 in left knee deep ache contasnt, worse with weight bearing, standing, walking, activity.. Patient has been doing well on tramadol and lyrica, without side effects. Has been decreasing tramadol to TID- QID PRN, most often TID for moderate to severe pain. In the past was following with Dr Palmer for injections of left knee, previously benefitted from gel injections q6 months however they stopped helping. cc:: CC: Althea Haney NP Review of Systems ROS Status of ROS 10 or more systems reviewed and unremark able except as noted in history and below Musculoskeletal Reports: back pain and joint pain Meds Home Medications and Allergies Home Medications ?Medication ?Instructions ?Recorded ?Confirmed ?Type furosemide 40 mg tablet 40 mg PO DAILY 05/03/23 05/03/23 History levothyroxine 150 mcg capsule 150 mcg PO DAILY 05/03/23 05/03/23 History pregabalin 75 mg capsule (Lyrica) 75 mg PO BID 05/03/23 05/03/23 History rivaroxaban 20 mg tablet (Xarelto) 20 mg PO DAILY 05/03/23 05/03/23 History spironolactone 25 mg tablet 25 mg PO BID 05/03/23 05/03/23 History tramadol 50 mg tablet 50 mg PO BID 05/03/23 05/03/23 History tramadol 50 mg tablet 100 mg (2 x 50 mg) PO BID PRN pain 08/27/23 Rx #120 tabs tramadol 50 mg tablet 50 mg PO BID PRN pain #120 tabs 12/20/23 Rx Allergies Allergy/AdvReac Type Severity Reaction Status Date / Time No Known Drug Allergies Allergy Verified 05/03/23 15:29 Exam Constitutional Documenting provider has reviewed patient's vital signs: yes Common normals: no apparent distress, oriented x3, healthy appearing, alert and well nourished General appearance: cooperative Nutritional appearance: obese HENMT Common normals: normocephalic, hearing grossly normal bilaterally and moist oral mucous membranes Head and scalp: normocephalic Eye Common normals: PERRL Pupil: PERRL Neck & C-Spine Common normals: full ROM General: normal visual inspection Chest Common normals: inspection of chest normal Respiratory Common normals: normal respiratory effort, no retractions and no use of accessory muscles Back & Pelvis Lumbar spine/lower back: ROM limited, pain with ROM and straight leg raise negative bilaterally Extremity Common normals: normal to inspection Left lower extremity: knee joint Other: left knee enlarged diameter, crepitus noted, pain with medial and lateral stress testing, mild edema no instability Neuro Common normals: oriented x3, CN's II-XII intact bilaterally, moves all extremities, no focal motor deficits, no sensory deficits noted and deep tendon reflexes 2+ bilaterally Sensorium/orientation: alert Gait (neuro): antalgic and assistive device used walker Motor exam: strength 5/5 throughout and no movement abnormalities noted Psych Common normals: mental status grossly normal, thought process normal, cooperative, affect normal, speech normal and activity/motor behavior normal Speech: normal speech Thought process: normal thought process Results Additional Findings Additional findings: If on a controlled substance or opioids, I have checked an [place]AR[place] report on this patient and there are no aberrancies noted in the prescribing history.??If on a controlled substance or opioid a drug screen was completed and reviewed within the last year, and if there has not been a drug screen completed we ordered one today to monitor higher risk, state monitored pain medication use. As part of providing excellent, safe, comprehensive care, the following was completed at our patient's visit: 1. A medication reconciliation and review to ensure accurate knowledge of current/active medications, including asking our patients to inform us about any [id number] medications or herbal remedies/nutritional suppl ements/alternative remedies. 2. A review to specifically ensure our patients have had annual screening for screening for depression, screening for tobacco use, and screening for unhealthy alcohol use. For concerning screenings had a discussion with the patient, provided patient education, and recommended follow-up with primary care provider when appropriate. If patient noted with a risk of falling, they received education on strength, gait, and balance training to prevent future risk of falling. Assessment and Plan Assessment and Plan (1) Osteoarthritis of left knee: (2) Left knee pain: (3) Lumbar spondylosis: (4) Lumbar stenosis: (5) Encounter for long-term opiate analgesic use: Assessment and Plan: I feel these medications are improving the patient's quality of life and allow them to tolerate activities of daily living as well as participate in recreational activity.? The patient does not report intolerable side effects. The patient is NOT opioid naive and non-pharmacologic and non-opioid treatment has failed to significantly relieve the patient's pain and improve functionality. The patient has a diagnosis that is related to a somatic or visceral pain etiology. ? ?? I reviewed with the patient the potential risks and side effects with the use of? opioid medications including but not limited to respiratory depression,? sedation, and even . I verified the patient has access to naloxone should? these effects occur. I advised the patient to avoid the use of any other? sedation substances including alcohol, THC, and benzodiazepines while? taking opioid medications due to the risk of compounding side effects and? detrimental outcomes. I reviewed the [employer], pain treatment agreement, urine? drug screen, and opioid start talking forms. The patient was advised to let? their family know they had Naloxone in case they would need to administer? the medication.? ?? A drug screen was completed within the last year, and no aberrancies were noted regarding their use of controlled substances. The patient understands they are subject to the terms and conditions of the pain contract that they have signed. ? ?? I have checked an OARRS report on this patient today and there are no aberrancies noted in the prescribing history.? (6) Obesity: Assessment and Plan: The patient was counseled that proper dietary changes and consistent participation in a home exercise plan can lead to weight loss. Weight loss can help to improve functionality in patients with chronic pain.? Plan education provided on left knee genicular nerve blocks under fluoroscopy working towards genicular RFA, pt would like to call to schedule at a later time decrease tramadol 50mg TID-QID PRN moderate to severe pain to 105 tabs/month continues to have functional improvement and pain relief as a result of injection therapy and medication management f/u 3 months, sooner if needed
== END 2024-01-24 12:26 | disposition home or self-care (01) ==
LOC: PM 12:25
PROVIDERS: PCP Family Medicine; Visit Provider Nurse Practitioner
DX: M17.12 Unilateral primary osteoarthritis, left knee (principal); M47.816 Spondylosis without myelopathy or radiculopathy, lumbar region; M48.062 Spinal stenosis, lumbar region with neurogenic claudication; Z79.891 Long term (current) use of opiate analgesic; E66.9 Obesity, unspecified
CPT/HCPCS: G0463

== ENCOUNTER 2024-04-24 13:12 | Outpatient (OUT) | payer MEDICARE, OTHER, SELFPAY ==
--- NOTE | 2024-04-24 13:15 | P.CN_ITS ---
Consult Note: HPI Data of Consult Patient: known to practice within the last 3 years Requesting Physician: Althea Haney NP Primary Care Provider: Jorge Ortez MD Consult Narrative Reason for consult: f/u Narrative: Eleuterio Cabral a pleasant 77 year old male presents for evaluation and management of chronic pain in low back buttocks and groin, as well as left knee pain. Today rating pain 4-5/10 in left knee deep ache contasnt, worse with weight bearing, standing, walking, activity. Patient has been doing well on tramadol and lyrica, without side effects. Has been decreasing tramadol to TID- QID PRN, most often TID for moderate to severe pain. Continues to follow with Dr Palmer for left knee pain and injections. cc:: CC: Althea Haney NP Review of Systems ROS Status of ROS 10 or more systems reviewed and unremark able except as noted in history and below Musculoskeletal Reports: back pain and joint pain Meds Home Medications and Allergies Home Medications ?Medication ?Instructions ?Recorded ?Confirmed ?Type furosemide 40 mg tablet 40 mg PO DAILY 05/03/23 05/03/23 History levothyroxine 150 mcg capsule 150 mcg PO DAILY 05/03/23 05/03/23 History pregabalin 75 mg capsule (Lyrica) 75 mg PO BID 05/03/23 05/03/23 History rivaroxaban 20 mg tablet (Xarelto) 20 mg PO DAILY 05/03/23 05/03/23 History spironolactone 25 mg tablet 25 mg PO BID 05/03/23 05/03/23 History tramadol 50 mg tablet 50 mg PO BID 05/03/23 05/03/23 History tramadol 50 mg tablet 100 mg (2 x 50 mg) PO BID PRN pain 08/27/23 Rx #120 tabs tramadol 50 mg tablet 50 mg PO BID PRN pain #120 tabs 12/20/23 Rx tramadol 50 mg tablet 50 mg PO QID PRN pain #105 tabs 03/03/24 Rx tramadol 50 mg tablet 100 mg (2 x 50 mg) PO BID PRN pain 04/14/24 Rx #105 tabs Allergies Allergy/AdvReac Type Severity Reaction Status Date / Time No Known Drug Allergies Allergy Verified 05/03/23 15:29 Exam Constitutional Documenting provider has reviewed patient's vital signs: yes Common normals: no apparent distress, oriented x3, healthy appearing, alert and well nourished General appearance: cooperative Nutritional appearance: obese HENMT Common normals: normocephalic, hearing grossly normal bilaterally and moist oral mucous membranes Head and scalp: normocephalic Eye Common normals: PERRL Pupil: PERRL Neck & C-Spine Common normals: full ROM General: normal visual inspection Chest Common normals: inspection of chest normal Respiratory Common normals: normal respiratory effort, no retractions and no use of accessory muscles Back & Pelvis Lumbar spine/lower back: ROM limited, pain with ROM and straight leg raise negative bilaterally Extremity Common normals: normal to inspection Left lower extremity: knee joint Other: left knee enlarged diameter, crepitus noted, pain with medial and lateral stress testing, mild edema no instability Neuro Common normals: oriented x3, CN's II-XII intact bilaterally, moves all extremities, no focal motor deficits, no sensory deficits noted and deep tendon reflexes 2+ bilaterally Sensorium/orientation: alert Gait (neuro): antalgic and assistive device used walker Motor exam: strength 5/5 throughout and no movement abnormalities noted Psych Common normals: mental status grossly normal, thought process normal, cooperative, affect normal, speech normal and activity/motor behavior normal Speech: normal speech Thought process: normal thought process Results Additional Findings Additional findings: If on a controlled substance or opioids, I have checked an [place] report on this patient and there are no aberrancies noted in the prescribing history.??If on a controlled substance or opioid a drug screen was completed and reviewed within the last year, and if there has not been a drug screen completed we ordered one today to monitor higher risk, state monitored pain medication use. As part of providing excellent, safe, comprehensive care, the following was completed at our patient's visit: 1. A medication reconciliation and review to ensure accurate knowledge of current/active medications, including asking our patients to inform us about any [id number] medications or herbal remedies/nutritional supplements/alternative remedies. 2. A review to specifically ensure our patients have had annual screening for screening for depression, screening for tobacco use, and screening for unhealthy alcohol use. For concerning screenings had a discussion with the patient, provided patient education, and recommended follow-up with primary care provider when appropriate. If patient noted with a risk of falling, they received education on strength, gait, and balance training to prevent future risk of falling. Assessment and Plan Assessment and Plan (1) Lumbar spondylosis: (2) Lumbar stenosis: (3) Encounter for long-term opiate analgesic use: Assessment and Plan: I feel these medications are improving the patient's quality of life and allow them to tolerate activities of daily living as well as participate in recreational activity.? The patient does not report intolerable side effects. The patient is NOT opioid naive and non-pharmacologic and non-opioid treatment has failed to significantly relieve the patient's pain and improve functionality. The patient has a diagnosis that is related to a somatic or visceral pain etiology. ? ?? I reviewed with the patient the potential risks and side effects with the use of? opioid medications including but not limited to respiratory depression,? sedation, and even . I verified the patient has access to naloxone should? these effects occur. I advised the patient to avoid the use of any other? sedation substances including alcohol, THC, and benzodiazepines while? taking opioid medications due to the risk of compounding side effects and? detrimental outcomes. I reviewed the [employer], pain treatment agreement, urine? drug screen, and opioid start talking forms. The patient was advised to let? their family know they had Naloxone in case they would need to administer? the medication.? ?? A drug screen was completed within the last year, and no aberrancies were noted regarding their use of controlled substances. The patient understands they are subject to the terms and conditions of the pain contract that they have signed. ? ?? I have checked an [place] report on this patient today and there are no aberrancies noted in the prescribing history.? (4) Osteoarthritis of left knee: (5) Left knee pain: (6) Obesity: Assessment and Plan: The patient was counseled that proper dietary changes and consistent participation in a home exercise plan can lead to weight loss. Weight loss can help to improve functionality in patients with chronic pain.? Plan update UDS today [employer] reviewed and signed continue tramadol 50mg TID-QID PRN moderate to severe pain to 105 tabs/month continues to have functional improvement and pain relief as a result of injection therapy and medication management, declining additional workup x of depression, positive PHQ, advised to f/u with PCP f/u 3 months, sooner if needed
== END 2024-04-24 13:13 | disposition home or self-care (01) ==
LOC: PM 13:12
PROVIDERS: PCP Family Medicine; Visit Provider Nurse Practitioner
DX: M47.816 Spondylosis without myelopathy or radiculopathy, lumbar region (principal); M48.062 Spinal stenosis, lumbar region with neurogenic claudication; Z79.891 Long term (current) use of opiate analgesic; M17.12 Unilateral primary osteoarthritis, left knee; E66.9 Obesity, unspecified
CPT/HCPCS: G0463

== ENCOUNTER 2024-06-05 15:31 | Outpatient (OUT) | payer MEDICARE, OTHER, SELFPAY ==
[2024-06-05 15:52] LABS: Hematocrit 47.9 % (42.0-54.0); Hemoglobin 15.7 g/dL (14.0-18.0); Mean Corpuscular HGB Conc 32.8 g/dL (29.9-35.2); Mean Corpuscular Hemoglobin 30.3 pg (25.9-34.0); Mean Corpuscular Volume 92.5 fL (80.0-94.0); Mean Platelet Volume 9.8 fL (9.5-13.5); Platelet Count 282 10^3/uL (150-450); Red Blood Count 5.18 10^6/uL (4.70-6.10); Red Cell Distribution Width 13.2 % (11.0-15.0); White Blood Count 7.9 10^3/uL (4.0-11.0)
--- OUTSIDE RECORDS SUMMARY | 2024-06-05 15:53 | XMS_ITS | CCD ---
Author Organization [facility] Care Team Providers Care Qa Reviewer Name Role Phone PHYSICIAN, DEFAULT Unavailable Unavailable PHYSICIAN, DEFAULT Unavailable Unavailable Jorge Camejo Unavailable Unavailable Unavailable Oscar Walters Unavailable Patel Ugarte Admitting Unavailable Rafael Napier Attending Unavailab Jorge Casillas Primary Care Unavailable Josiane Sykes Consulting Unavailable Beth Treviño Consulting Unavailable Susi Rivas Consulting Unavailable Gumaro Portillo Consulting Unavail able Lauren Cortez Consulting Unavailable Ranjit Mckeon Consulting Unavailab Yuliya Valdes Consulting Unavailable Verena Morton Consulting Unavailable Ana Paula Lee Consulting Unavailab Rody Hansen Consulting Unavailable Oscar Walters Consulting Unavailable Gina Cherry Consulting Unavailable Bryant Cooper Consulting Unavailable Phil Sutton Consulting Unavailable Wolfgang Mclean Consulting Unavailable Sekou Green Consulting Unavailable Unavailable Unavailable Gumaro Treviño Attending Unavailable Neelima, Dr. Jorge Hurtado Primary Care Adamaris Camejo, Dr. Jorge Hurtado Primary Care Gumaro Conner Referring Unavailable Gumaro Treviño Attending Unavailable Neelima, Dr. Jorge Hurtado Primary Care Gumaro Conner Referring Unavailable Gumaro Treviño Attending Unavailable Neelima, Dr. Jorge Hurtado Primary Care Gumaro Conner Attending Unavailable Neelima, Dr. Jorge Hurtado Primary Care Adamaris CAMEJO, DR JORGE Masters Primary Care Unavailable LAKSHMIPATHY ., NARENDRANATH Admitting Sydney vailable LAKSHMIPATHY ., NARENDRANATH Consulting Sydney vailable LAKSHMIPATHY ., NARKAMARATH Attending Sydney vailable NADERER, DR JORGE Masters Primary Care Unavailable MCLEAN ., DR HUNTER Gagnon Attending Unavailable MCLEAN ., DR HUNTER Gagnon Admitting Unavailable SANCHEZ ., DOMO Consulting Unavailable LAKSHMIPATHY ., NARSHIRA Admitting Sydney vailable LAKSHMIPATHY ., NARSHIRA Attending Sydney vailable NADLIZBETH, DR JORGE Masters Primary Care Unavailable MCLEAN ., DR HUNTER Gagnon Attending Unavailable SANCHEZ ., DOMO Consulting Unavailable MCLEAN ., DR HUNTER Gagnon Admitting Unavailable NADERER, DR JORGE Masters Primary Care Unavailable NADERER, DR JORGE Masters Primary Care Unavailable NADERER, DR JORGE Masters Attending Unavailable KITZMILLER, DR ANETTE Torrez Consulting Unavailable NADERER, DR [...] ELASHI, DR LUU Admitting Unavailable KAMILA, DR GUMARO Gagnon Consulting Unavailabl e KAMILA, DR GUMARO Gagnon Attending Unavailabl e NADERER, DR JORGE Masters Primary Care Unavailable KAMILA, DR GUMARO Gagnon Admitting Unavailabl e NADERER, DR JORGE Masters Primary Care Unavailable NADERER, DR JORGE Masters Consulting Unavailable NADERER, DR JORGE Masters Attending Unavailable NADERER, DR JORGE Masters Admitting Unavailable REINECK, DR LISA Badillo Admitting Unavailabl e REINECK, DR LISA Badillo Consulting Unavailabl e NADERER, DR JORGE Masters Primary Care Unavailable REINECK, DR LISA Badillo Attending Unavailabl e ZIEBTONIA, DR LAYO Davis Consulting Unavailable PAY ., DR BENNETT Consulting Unavailable TONY PATRICIA Consulting Unavailable MCLEAN ., DR HUNTER Gagnon Admitting Unavailable MCLEAN ., DR HUNTER Gagnon Attending Unavailable SANCHEZ ., DOMO Consulting Unavailable NADERER, DR JORGE Masters Primary Care Unavailable MCLEAN ., DR HUNTER Gagnon Admitting Unavailable MCLEAN ., DR HUNTER Gagnon Attending Unavailable SANCHEZ ., DOMO Consulting Unavailable NADERER, JORGE A Primary Care Unavailable Jorge Camejo MD Primary Care Provider Jorge Camejo MD Primary Care Provider GUMARO TREVIÑO Attending JORGE Martin Primary Care Unavailkj PALMER JR., MARIE Diallo Attending JORGE Busby Attending Prince PALMER JR., MARIE Diallo Attending JORGE Busby Attending Prince PALMER JR., MARIE Diallo Attending Adriel PALMER JR., MARIE Diallo Attending Adriel CAMEJO, JORGE Attending Prince PALMER JR., MARIE Diallo Attending Adriel proctor Medications Current Medications Medication Drug Class(es) Dates Sig (Normalized) Sig (Original) furosemide 40 mg oral tablet (10 sources) Loop Diuretic take 1 tablet by mouth once daily furosemide (Lasix) 40 mg tablet Take 1 tablet (40 mg) by mouth once daily. 0 Active levothyroxine sodium 0.15 mg oral tablet (10 sources) l-Thyroxine take 1 tablet by mouth once daily levothyroxine (Synthroid) 150 mcg tablet Take 1 tablet (150 mcg) by mouth once daily. 0 Active take 1 tablet by anisa th once daily in the morning Levothyroxine Sodium 150 MCG 1 tablet in the morning on an empty stomach Orally Once a day Active mupirocin 0.02 mg/mg topical ointment (2 sources) RNA Synthetase Inhibitor Antibacterial Start: 10-21-2022 mupirocin (Bactroban) 2 % ointment APPLY TO AFFECTED AREA 3 TIMES A DAY 0 10/21/2022 Active pregabalin 75 mg oral capsule (9 sources) Start: 11-01-2022 take 1 capsule by mouth twice daily pregabalin (Lyrica) 75 MG capsule Indications: Other spondylosis with radiculopathy, lumbosacral region , Lumbosacral spondylosis without myelopathy TAKE 1 CAPSULE BY MOUTH TWICE A DAY 60 capsule 2 11/09/2023 Active rivaroxaban 20 mg oral tablet (10 sources) Factor Xa Inhibitor Start: 12-17-2023 End: 01-17-2024 take 1 tablet by mouth once daily rivaroxaban (Xarelto) 20 mg tablet Indications: Pulmonary embolism, unspecified chronicity, unspecified pulmonary embolism type, unspecified whether acute cor pulmonale present (CMS/HCC) , Deep vein thrombosis (DVT) of distal vein of lower extremity, unspecified chronicity, unspecified laterality (CMS/HCC) Take 1 tablet (20 mg) by mouth once daily. 90 tablet 3 12/17/2023 01/17/2024 Discontinued (Therapy completed) rivaroxaban (Xar elto) 20 MG tablet Xarelto 0 Active traMADol hydrochloride 50 mg oral tablet (10 sources) Opioid Agonist take 2 tablets by mouth twice daily traMADol (Ultram) 50 mg tablet Take 2 tablets (100 mg) by mouth 2 times a day. 0 Active Completed/Discontinued Medications Medication Drug Class(es) Dates Sig (Normalized) Sig (Original) [id number] 200 actuat albuterol 0.09 mg/actuat metered dose inhaler (2 sources) beta2-Adrenergic Agonist Start: 3 take 2 puff(s) by mouth every four hours as needed Albuterol Sulfate HFA 108 (90 Base) MCG/ACT Inhalation Aerosol Solution TAKE 2 PUFFS BY MOUTH EVERY 4 HOURS NEEDED Quantity: 18 Refills: 0 Ordered: 08-Dec-2022 DO Start : 08-Dec-2022 Active 1 ml methylPREDNISolone acetate 40 mg/ml injection (2 sources) Corticosteroid Start: 4 End: 4 methylPREDNISolone acetate (DEPO-Medrol) injection 20 mg spironolactone 25 mg oral tablet (10 sources) Aldosterone Antagonist Start: 2 take 1 tablet by mouth once daily Spironolactone 25 MG Oral Tablet TAKE 1 TABLET DAILY. Quantity: 30 Refills: 0 Ordered: 27-Nov-2022 DO Start : 27-Nov-2022 Active take 1 tablet by anisa th every twelve hours Spironolactone 25 MG 1 tablet Orally bid for 90 days Active Xarelto Starter Pack TBPK (1 source) Xarelto Starter Pack TBPK as directed Quantity: 0 Refills: 0 Ordered: 12-Jul-2022 DO Active Problems Active Problems Problem Classification Problem Date Documented Da te Episodic/Chronic Chronic kidney disease (12 sources) Chronic kidney disease; Translations: [Chronic kidney disease, unspecified] Onset: 07-17-2022 01-17-2024 Chronic Chronic obstructive pulmonary disease and bronchiectasis (2 sources) Chronic obstructive lung disease; Translations: [Chronic obstructive pulmonary disease, unspecified] Onset: 11-26-2023 11-26-2023 Chronic Congestive heart failure; nonhypertensive (12 sources) Congestive heart failure; Translations: [Heart failure, unspecified] Onset: 06-23-2022 Chronic Diabetes mellitus without complication (3 sources) Prediabetes; Translations: [Prediabetes] Onset: 04-12-2022 11-26-2023 Episodic Disorders of lipid metabolism (3 sources) Hyperlipidemia, unspecified; Translations: [Dyslipidemia] Onset: 04-12-2022 11-26-2023 Chronic Essential hypertension (11 sources) Essential (primary) hypertension; Translations: [Benign essential hypertension] Onset: 04-05-2022 Chronic Hypertension with complications and secondary hypertension (9 sources) Malignant hypertensive chronic kidney disease; Translations: [Hypertensive chronic kidney disease with stage 1 through stage 4 chronic kidney disease, or unspecified chronic kidney disease] Onset: 06-26-2022 Chronic Osteoarthritis (4 sources) Osteoarthritis of right hip joint; Translations: [Unilateral primary osteoarthritis, right hip] Onset: 11-26-2023 11-26-2023 Chronic Other aftercare (2 sources) Patient encounter status; Translations: [Other halfway (current) drug therapy] Onset: 11-26-2023 11-26-2023 Episodic Other and ill-defined heart disease (1 source) Cardiomegaly; Translations: [Cardiomegaly] Onset: 06-23-2022 Chronic Other connective tissue disease (1 source) Acquired trigger finger of right little finger; Translations: [Trigger finger, right little finger] 12-12-2023 Episodic Other infections; including parasitic (3 sources) Personal history of other infectious and parasitic diseases; Translations: [History of COVID-19] Onset: 11-29-2023 11-29-2023 Episodic Other lower respiratory disease (4 sources) Shortness of breath; Translations: [SHORTNESS OF BREATH] Onset: 12-07-2022 Episodic Other nervous system disorders (1 source) Other chronic pain; Translations: [OTHER CHRONIC PAIN] Onset: 01-28-2023 Chronic Other nervous system disorders (1 source) Other specified mononeuropathies; Translations: [OTHER SPECIFIED MONONEUROPATHIES] Onset: 10-10-2022 Chronic Other nutritional; endocrine; and metabolic disorders (4 sources) Body mass index 40+ - severely obese; Translations: [Morbid obesity] Onset: 01-17-2024 01-17-2024 Chronic Other nutritional; endocrine; and metabolic disorders [...] INDEX BMI 45.0-49.9 ADULT] Onset: 06-26-2022 Chronic Other nutritional; endocrine; and metabolic disorders (2 sources) Morbid obesity; Translations: [Morbid (severe) obesity due to excess calories] Onset: 11-26-2023 11-26-2023 Chronic Other nutritional; endocrine; and metabolic disorders (2 sources) Body mass index (BMI) 50.0-59.9, adult; Translations: [Body mass index (BMI) 50.0-59.9, adult ([facility])] Onset: 01-17-2024 Chronic Other screening for suspected conditions (not mental disorders or infectious disease) (4 sources) Other specified abnormal findings of blood chemistry; Translations: [Encounter for screening for malignant neoplasm of prostate] Onset: 04-12-2022 11-26-2023 Episodic Phlebitis; thrombophlebitis and thromboembolism (13 sources) Deep venous thrombosis; Translations: [Acute venous embolism and thrombosis of unspecified deep vessels of lower extremity] Onset: 06-23-2022 Episodic Pulmonary heart disease (14 sources) Pulmonary embolism; Translations: [Other pulmonary embolism and infarction] Onset: 06-23-2022 Episodic Residual codes; unclassified (1 source) Sleep apnea, unspecified; Translations: [SLEEP APNEA UNSPECIFIED] Onset: 06-26-2022 Chronic Residual codes; unclassified (2 sources) Obstructive sleep apnea syndrome; Translations: [Obstructive sleep apnea (adult) (pediatric)] Onset: 11-26-2023 11-26-2023 Chronic Residual codes; unclassified (2 sources) Edema; Translations: [Edema] Onset: 11-29-2023 11-29-2023 Episodic Screening and history of mental health and substance abuse codes (5 sources) Ex-smoker; Translations: [Personal history of tobacco use] Onset: 01-17-2024 01-17-2024 Episodic Spondylosis; intervertebral disc disorders; other back problems (2 sources) Lumbosacral spondylosis with radiculopathy; Translations: [Other spondylosis with radiculopathy, lumbosacral region] Onset: 11-26-2023 11-26-2023 Chronic Spondylosis; intervertebral disc disorders; other back problems (10 sources) Spinal stenosis, lumbar region without neurogenic claudication; Translations: [Intervertebral disc disorders with radiculopathy, lumbar region] Onset: 02-16-2022 Episodic Thyroid disorders (4 sources) Hypothyroidism, unspecified; Translations: [Acquired hypothyroidism] Onset: 06-23-2022 11-26-2023 Chronic Unclassified (4 sources) LOW BACK PAIN, [...] Other Problems Problem Classification Problem Date Documented Date Episodic/Chronic Abdominal pain (4 sources) Right lower quadrant pain; Translations: [RIGHT LOWER QUADRANT PAIN] Onset: 02-24-2022 Episodic Acute and unspecified renal failure (3 sources) Acute kidney failure, unspecified; Translations: [Acute kidney failure, unspecified] Onset: 06-23-2022 Episodic Chronic kidney disease (7 sources) Chronic kidney disease; Translations: [CHRONIC KIDNEY DISEASE STAGE 3B] Onset: 10-03-2022 Other aftercare (1 source) 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 Marie diallo, DO 12/12/2023 2:36 PM Hand / UE Inj/Asp: Susan dias A1 for trigger finger on 12/12/2023 2:32 PM Indications: tendon swelling Details: 22 G needle, volar approach Medications: 20 mg methylPREDNISolone acetate 40 MG/ML Outcome: tolerated well, no immediate complications Site cleaned with isopropyl alcohol prior to injection Right upper extremity showed no acute neurovascular changes prior to and following injection. Procedure, treatment alternatives, risks and benefits explained, specific risks discussed. [facility] Office Visit (Cardiology)on 01-04-2023 Follow-up visit Diagnoses/Problems [...] Follow up in 1 year. Chief Complaint RAFAEL CABRAL is being seen for a 6 [...] Recorded: 04Jan2023 11:33AM Heart Rate64, L Radial [id number], LUE, Sitting Wbohxwzez79, LUE, Sitting Height5 ft 11 in Eoexnw746 lb BMI Drfhokyckz16.51 kg/m2 BSA Calculated2.69 Tobacco Useb) No PHQ-2 [...] time . Signatures Electronically signed by : Gumaro Treviño DO; Jan 04 2023 12:41PM EST (Author) Normal [facility] Tobacco Screening.on 023 Adult depression screening assessment No [facility] DO Work Phone: Fall risk assessment a) No falls within the last year [facility] DO Work Phone: Tobacco use status CP b) No [facility] DO Work Phone: FREE T3on 12-07-2022 FREE T3 2.63 pg/mlL Normal 2.18-3.98 [facility] Comment on above: Performed By: #### T , FT3 #### [facility] [address] [place] [address] Dr. Cole Echeverria FREE T4on 12-07-2022 Free T4 [Mass/Vol] 1.44 ng/dL Normal 0.76-1.46 [facility] Comment on above: Performed By: #### T SH, FT3 #### [facility] [address] [place] [address] Dr. Cole Echeverria HEMOGLOBINon 12-07-2022 Hemoglobin (Bld) [Mass/Vol] 14.0 g/dL Normal 14.0-18.0 [facility] Comment on above: Performed By: #### F T4, PSASC #### [facility] [address] [place] [address] Dr. Cole Echeverria TSHon 12-07-2022 TSH 0.710 uIU/mL Normal 0.358-3.740 [facility] Comment on above: Performed By: #### T SH, FT3 #### [facility] [address] [place] [address] Dr. Cole Echeverria PTH INTACTon 10-04-2022 PTH, Intact 13 pg/mL Critically low 15-65 [facility] Comment on above: Performed By: #### P THINT #### [facility] [address] [place] [address] Dr. Cole Echeverria HEMOGRAM AND PLATELon 2021 Hematocrit (Bld) [Volume fraction] 44.9 % Normal 42.0-54.0 [facility] Comment on above: Performed By: #### F T4, PSASC #### [facility] [address] [place] [address] Dr. Cole Echeverria Hemoglobin (Bld) [Mass/Vol] 14.4 g/dL Normal 14.0-18.0 [facility] Comment on above: Performed By: #### F T4, PSASC #### [facility] [address] [place] [address] Dr. Cole Echeverria MCH (RBC) [Entitic mass] 27.0 pg Normal 25.9-34.0 [facility] Comment on above: Performed By: #### F T4, PSASC #### [facility] [address] [place] [address] Dr. Cole Echeverria MCHC (RBC) [Mass/Vol] 32.1 g/dL Normal 29.9-35.2 [facility] Comment on above: Performed By: #### F T4, PSASC #### [facility] [address] [place] [address] Dr. Cole Echeverria MCV (RBC) [Entitic vol] 84.1 fL Normal 80.0-94.0 [facility] Comment on above: Performed By: #### F T4, PSASC #### [facility] [address] [place] [address] Dr. Cole Echeverria PLT 330 103/ul Normal 150-450 [facility] Comment on above: Performed By: #### F T4, PSASC #### [facility] [address] [place] [address] Dr. Cole Echeverria RBC 5.34 106/ul Normal 4.70-6.10 [facility] Comment on above: Performed By: #### F T4, PSASC #### [facility] [address] [place] [address] Dr. Cole Echeverria WBC 8.7 103/ul Normal 4.0-11.0 [facility] Comment on above: Performed By: #### F T4, PSASC #### [facility] [address] [place] [address] Dr. Cole Echeverria PHOSPHORUSon 10-03-2022 Phosphate [Mass/Vol] 3.8 mg/dL Normal 2.6-4.7 [facility] Comment on above: Performed By: #### T SH, FT3 #### [facility] [address] [place] [address] Dr. Cole Echeverria PROF 14(COMP METB)on 022 Albumin [Mass/Vol] 3.1 g/dL Critically low 3.4-5.0 [facility] Comment on above: Performed By: #### T SH, FT3 #### [facility] [address] [place] [address] Dr. Cole Echeverria Albumin/Globulin [Mass ratio] 0.6 {ratio} Normal [facility] Comment on above: Performed By: #### T SH, FT3 #### [facility] [address] [place] [address] Dr. Cole Echeverria ALP [Catalytic activity/Vol] 94 U/L Normal 46-116 [facility] Comment on above: Performed By: #### T SH, FT3 #### [facility] [address] [place] [address] Dr. Cole Echeverria ALT [Catalytic activity/Vol] 11 U/L Critically low 16-63 [facility] Comment on above: Performed By: #### T SH, FT3 #### [facility] [address] [place] [address] Dr. Cole Echeverria Anion gap [Moles/Vol] 9.3 mmol/L Normal [facility] Comment on above: Performed By: #### T SH, FT3 #### [facility] [address] [place] [address] Dr. Cole Echeverria AST [Catalytic activity/Vol] 13 U/L Critically low 15-37 [facility] Comment on above: Performed By: #### T SH, FT3 #### [facility] [address] [place] [address] Dr. Cole Echeverria Bilirubin [Mass/Vol] 0.5 mg/dL Normal 0.2-1.0 [facility] Comment on above: Performed By: #### T SH, FT3 #### [facility] [address] [place] [address] Dr. Cole Echeverria Calcium [Mass/Vol] 9.6 mg/dL Normal 8.5-10.1 [facility] Comment on above: Performed By: #### T SH, FT3 #### [facility] [address] [place] [address] Dr. Cole Echeverria Chloride [Moles/Vol] 101 mmol/L Normal 98-107 [facility] Comment on above: Performed By: #### T SH, FT3 #### [facility] [address] [place] [address] Dr. Cole Echeverria CO2 [Moles/Vol] 31.6 mmol/L Normal 21.0-32.[address] [facility] Comment on above: Performed By: #### T SH, FT3 #### [facility] [address] [place] [address] Dr. Cole Echeverria Creatinine [Mass/Vol] 1.13 mg/dL Normal 0.70-1.30 [facility] Comment on above: Performed By: #### T SH, FT3 #### [facility] [address] [place] [address] Dr. Cole Echeverria EGFR-AF BERMUDIAN >60 Normal >=[address] [facility] Comment on above: Performed By: #### T SH, FT3 #### [facility] [address] [place] [address] Dr. Cole Echeverria EGFR-NON AF BERMUDIAN >60 Normal >=60 [facility] Comment on above: Performed By: #### T SH, FT3 #### [facility] [address] [place] [address] Dr. Cole Echeverria Globulin (S) [Mass/Vol] 5.0 g/dL Normal [facility] Comment on above: Performed By: #### T SH, FT3 #### [facility] [address] [place] [address] Dr. Cole Echeverria Glucose [Mass/Vol] 104 mg/dL Normal 74-106 [facility] Comment on above: Performed By: #### T SH, FT3 #### [facility] [address] [place] [address] Dr. Cole Echeverria Potassium [Moles/Vol] 3.9 mmol/L Normal 3.5-5.1 [facility] Comment on above: Performed By: #### T SH, FT3 #### [facility] [address] [place] [address] Dr. Cole Echeverria Protein [Mass/Vol] 8.1 g/dL Normal 6.4-8.2 [facility] Comment on above: Performed By: #### T SH, FT3 #### [facility] [address] [place] [address] Dr. Cole Echeverria Sodium [Moles/Vol] 138 mmol/L Normal 136-145 [facility] Comment on above: Performed By: #### T SOPHIE, FT3 #### [facility] [address] [place] [address] Dr. Cole Echeverria Urea nitrogen [Mass/Vol] 21.0 mg/dL Critically high 7.0-18.0 [facility] Comment on above: Performed By: #### T SOPHIE, FT3 #### [facility] [address] [place] [address] Dr. Cole Echeverria Urea nitrogen/Creatinine [Mass ratio] 18.6 mg/mg Normal [facility] Comment on above: Performed By: #### T SOPHIE, FT3 #### [facility] [address] [place] [address] Dr. Cole Echeverria URINE T PROTEIN CREAT RATIOo n 10-03-2022 Protein (U) [Mass/Vol] 7.0 mg/dL Normal <=12.0 [facility] Comment on above: Performed By: #### T SOPHIE, FT3 #### [facility] [address] [place] [address] Dr. Cole Echeverria UR PROT CREAT RAT 0.11 Normal [facility] Comment on above: Performed By: #### T SOPHIE, FT3 #### [facility] [address] [place] [address] Dr. Cole Echeverria URINE CREAT 62.81 mg/dL Normal 20.00-300.00 [facility] Comment on above: Performed By: #### T SOPHIE, FT3 #### [facility] [address] [place] [address] Dr. Cole Echeverria VITAMIN D 25 OHon 10-03-2022 VIT D 25-OH 52.1 ng/mL Normal [facility] Comment on above: Performed By: #### T SOPHIE, FT3 #### [facility] [address] [place] [address] Dr. Cole Echeverria VIT D RANGES SEE BELOW Normal [facility] Comment on above: Result Comment: <20 ng/mL Vit D deficient 20 - <30 ng/mL Vit D insufficient 30 - 100 ng/mL Vit D sufficient >100 ng/mL Potential Toxicity Performed By: #### T SH, FT3 #### [facility] [address] [place], [place] [address] Dr. Cole Echeverria BNPon 07-12-2022 Natriuretic peptide B (Bld) [Mass/Vol] 1748.0 pg/mL Normal <=1,800.0 [facility] Comment on above: Performed By: #### F T4, PSASC #### [facility] [address] [place], [place] [address] Dr. Cole Echeverria Office Visit (Cardiology)on 07-12-2022 [...] Metabolic Panel; Status:Active - Retrospective Authorization; Requested for:[id number]; Brain Natriuretic Peptide BNP; Status:Active - Retrospective Authorization; Requested for:[id number]; Health Maintenance Basic Metabolic Panel; Status:Canceled - Retrospective Authorization; Morbid obesity with BMI of 50.0-59.9, adult Healthy Weight Tips; Status:Complete - Retrospective Authorization; Done: [id number] Unlinked Healthy Weight Tips; Status:Complete - Retrospective Authorization; Done: [id number] Tobacco Use Screening; Status:Complete; Done: [id number] Tobacco Use Screening; Status:Complete; Done: [id number] Patient Instructions Please bring all medicines, vitamins, [...] in 6 months Chief Complaint 07/05/2022 [facility] [place] SP EKOS. RAFAEL CABRAL is being seen for follow-up of [...] Vitals Vital Signs Recorded: 12Jul2022 11:36AM Heart Sfsb902, L Radial Rseuikts388, LUE, Sitting Ihxcmdzhm70, LUE, Sitting Height5 ft 11 in Bqafym723 lb BMI Rypwnpdcbd36.05 kg/m2 BSA Calculated2.73 Tobacco Useb) No PHQ-2 [...] no thyrom (more content not included)... Normal [facility] PROF CHEM 8 (BAS METB)on Anion gap [Moles/Vol] 10.2 mmol/L Normal [facility] Comment on above: Performed By: #### F T4, PSASC #### [facility] [address] [place] [address] Dr. Cole Echeverria Calcium [Mass/Vol] 8.9 mg/dL Normal 8.5-10.1 [facility] Comment on above: Performed By: #### F T4, PSASC #### [facility] [address] [address] [address] Cole Echeverria Chloride [Moles/Vol] 97 mmol/L Critically low 98-107 [facility] Comment on above: Performed By: #### F T4, PSASC #### [facility] [address] [address] [address] Cole Echeverria CO2 [Moles/Vol] 32.3 mmol/L Critically high 21.0-32.0 [facility] Comment on above: Performed By: #### F T4, PSASC #### [facility] [address] [address] [address] Cole Echeverria Creatinine [Mass/Vol] 1.18 mg/dL Normal 0.70-1.30 [facility] Comment on above: Performed By: #### F T4, PSASC #### [facility] [address] [place] [address] Dr. Cole Echeverria EGFR-AF BERMUDIAN >60 Normal >=60 [facility] Comment on above: Performed By: #### F T4, PSASC #### [facility] [address] [address] [address] Cole Echeverria EGFR-NON AF BERMUDIAN =60 Normal >=60 [facility] Comment on above: Performed By: #### F T4, PSASC #### [facility] [address] [address] [address] Cole Echeverria Glucose [Mass/Vol] 104 mg/dL Normal 74-106 [facility] Comment on above: Performed By: #### F T4, PSASC #### [facility] [address] [address] [address] Cole Echeverria Potassium [Moles/Vol] 3.5 mmol/L Normal 3.5-5.1 [facility] Comment on above: Performed By: #### F T4, PSASC #### [facility] [address] [place] [address] Dr. Cole Echeverria Sodium [Moles/Vol] 136 mmol/L Normal 136-145 [facility] Comment on above: Performed By: #### F T4, PSASC #### [facility] [address] [address] [address] Cole Echeverria Urea nitrogen [Mass/Vol] 11.0 mg/dL Normal 7.0-18.0 [facility] Comment on above: Performed By: #### F T4, PSASC #### [facility] [address] [address] [address] Cole Echeverria Urea nitrogen/Creatinine [Mass ratio] 9.3 mg/mg Normal [facility] Comment on above: Performed By: #### F T4, PSASC #### [facility] [address] [place] [address] Dr. Cole Echeverria Tobacco Screening.on 022 Adult depression screening assessment No [facility] 250 DO Work Phone: Fall risk assessment a) No falls within the last year [facility] 250 DO Work Phone: Tobacco use status [facility] b) No [facility] 250 DO Work Phone: Basic Metabolic Panelon 06-06 Calcium [Mass/Vol] 8.7 mg/dL Normal 8.2-10.[address] [facility] Comment on above: Performed By: #### C BC, BMP #### [facility] [address] Chloride [Moles/Vol] 104 mmol/L Normal 95-114 [facility] Comment on above: Performed By: #### C BC, BMP #### [facility] [address] CO2 [Moles/Vol] 28.0 mmol/L Normal 22.0-30.0 [facility] Comment on above: Performed By: #### C BC, BMP #### [facility] [address] [place] [address] [place] Creatinine [Mass/Vol] 1.60 mg/dL High 0.64-1.27 [facility] Comment on above: Performed By: #### C BC, BMP #### [facility] [address] [place] [address] [place] Creatinine Clr Calc Pharmacy 62.30 [facility] Comment on above: Result Comment: PERF ORMED BY: [place] [address] PATHOLOGIST BELL CLEANER ADRIEN RAMIREZ M.D. Performed By: #### C BC, BMP #### [facility] [address] [place] [address] [place] Estimated GFR ( Janeen 51 [facility] Comment on above: Result Comment: GFR estimated reference range: According to KDOQI guidelines, <60 ml/min/1.73m2 is sufficient to diagnose a patient with chronic kidney disease. Performed By: #### C BC, BMP #### [address] Estimated GFR (Non- Am 42 Normal [facility] Comment on above: Performed By: #### C BC, BMP #### [address] Glucose [Mass/Vol] 111 mg/dL High 70-[address] [facility] Comment on above: Result Comment: [facility] Glucose Reference Range is dependent on time and content of last meal. Glucose of more than 200 mg/dL in a nonstressed, ambulatory subject supports the diagnosis of Diabetes Mellitus. ADA recommended reference range Performed By: #### C BC, BMP #### [address] Potassium [Moles/Vol] 4.1 mmol/L Normal 3.5-5.1 [facility] Comment on above: Performed By: #### C BC, BMP #### [address] Sodium [Moles/Vol] 139 mmol/L Normal 136-[address] [facility] Comment on above: Performed By: #### C BC, BMP #### [address] Urea nitrogen [Mass/Vol] 35 mg/dL High 9-23 [facility] Comment on above: Performed By: #### C BC, BMP #### [address] Complete Blood Count Auto Di ffon 06-24-2022 Basophils (Bld) [#/Vol] 0.1 10*3/uL Normal 0.0-0.2 [facility] Comment on above: Result Comment: PERF ORMED BY: [place] [address] PATHOLOGIST BELL CLEANER ADRIEN RAMIREZ M.D. Performed By: #### C BC, BMP #### [place] [address] [place] Basophils/100 WBC (Bld) 0.6 % Normal . [facility] Comment on above: Performed By: #### C BC, BMP #### [facility] [address] Eosinophils (Bld) [#/Vol] 0.6 10*3/uL High 0.0-0.45 [facility] Comment on above: Performed By: #### C BC, BMP #### [facility] [address] Eosinophils/100 WBC (Bld) 7.2 % Normal . [facility] Comment on above: Performed By: #### C BC, BMP #### [facility] [address] Erythrocyte distribution width (RBC) [Ratio] 14.9 % High 12.0-14.8 [facility] Comment on above: Performed By: #### C BC, BMP #### [facility] [address] Hematocrit (Bld) [Volume fraction] 39.6 % Normal 38.8-50.0 [facility] Comment on above: Performed By: #### C BC, BMP #### [facility] [address] Hemoglobin (Bld) [Mass/Vol] 13.1 g/dL Normal 13.0-17.0 [facility] Comment on above: Performed By: #### C BC, BMP #### [facility] [address] [place] [address] [place] Lymphocytes (Bld) [#/Vol] 2.0 10*3/uL Normal 1.00-4.8 [facility] Comment on above: Performed By: #### C BC, BMP #### [facility] [address] [place] [address] [place] Lymphocytes/100 WBC (Bld) 23.1 % Normal . [facility] Comment on above: Performed By: #### C BC, BMP #### [facility] [address] MCH (RBC) [Entitic mass] 30.2 pg Normal 27.5-35.2 [facility] Comment on above: Performed By: #### C BC, BMP #### [facility] [address] MCV (RBC) [Entitic vol] 91.5 fL Normal 83.5-101 [facility] Comment on above: Performed By: #### C BC, BMP #### [facility] [address] Mean Corpuscular HGB Conc 33.0 g/dL Normal 32.5-35.6 [facility] Comment on above: Performed By: #### C BC, BMP #### [facility] [address] Monocytes (Bld) [#/Vol] 0.6 10*3/uL Normal 0.0-0.8 [facility] Comment on above: Performed By: #### C BC, BMP #### [facility] [address] Monocytes/100 WBC (Bld) 7.5 % Normal . [facility] Comment on above: Performed By: #### C BC, BMP #### [facility] [address] [place] [address] [place] Neutrophils (Bld) [#/Vol] 5.3 10*3/uL Normal 1.8-7.7 [facility] Comment on above: Performed By: #### C BC, BMP #### [facility] [address] [place] [address] [place] Neutrophils/100 WBC (Bld) 61.6 % Normal . [facility] Comment on above: Performed By: #### C BC, BMP #### [facility] [address] [place] [address] [place] Nucleated RBC/100 WBC (Bld) [Ratio] 0.0 % Normal 0-0.5 [facility] Comment on above: Performed By: #### C BC, BMP #### [facility] [address] Platelet mean volume (Bld) [Entitic vol] 9.0 fL Normal 6.6-10.1 [facility] Comment on above: Performed By: #### C BC, BMP #### [facility] [address] Platelets (Bld) [#/Vol] 165 10*3/uL Normal 150-450 [facility] Comment on above: Performed By: #### C BC, BMP #### [facility] [address] RBC (Bld) [#/Vol] 4.33 10*6/uL Normal 3.90-5.60 [facility] Comment on above: Performed By: #### C BC, BMP #### [address] WBC (Bld) [#/Vol] 8.6 10*3/uL Normal 4.5-11.[address] [facility] Comment on above: Performed By: #### C AMANDEEP, BMP #### [address] Creatinine, Urine (Random)on 06-24-2022 Creatinine, Urine (Random) 162.5 mg/dL Normal [facility] Comment on above: Result Comment: No r eference range established Performed By: #### C AMANDEEP, BMP #### [address] Partial Thromboplastin Timeo n 06-24-2022 aPTT Coag (Bld) [Time] 77.2 s High 25.1-36.5 [facility] Comment on above: Result Comment: PERF ORMED BY: [place] [address] PATHOLOGIST BELL CLEANER ADRIEN RAMIREZ M.D. Performed By: #### C AMANDEEP, BMP #### [address] Prothrombin Time INRon 06-24 INR Coag (PPP) [Relative time] 1.9 {INR} Normal [facility] Comment on above: Result Comment: INR [...] By: #### C BC, BMP #### [facility] [address] PT Coag (PPP) [Time] 21.9 s High 9.0-12.9 [facility] Comment on above: Performed By: #### C BC, BMP #### [facility] [address] Thyroid Stim Hormone w/Rflxo n 06-24-2022 Thyroid Stim Hormone w/Rflx 1.06 u[iU]/mL Normal 0.45-5.33 [facility] Comment on above: Order Comment: Comme nt Add on to previous lab draw Result Comment: PERF ORMED BY: [place] [address] PATHOLOGIST BELL CLEANER ADRIEN RAMIREZ M.D. Performed By: #### C BC, BMP #### [address] Total Protein, Urineon 06-24 Protein (U) [Mass/Vol] 7 mg/dL Normal 0-9 [facility] Comment on above: Result Comment: PERF ORMED BY: [place] [address] PATHOLOGIST BELL CLEANER ADRIEN RAMIREZ M.D. Performed By: #### C BC, BMP #### [facility] [address] [place] [address] [place] Urinalysison 06-24-2022 Appearance (U) Clear Normal Clear [facility] Comment on above: Order Comment: Name Collection Type:: Voided Performed By: #### C BC, BMP #### [facility] [address] [place] [address] [place] Bilirubin,Urine Negative Normal Negative [facility] Comment on above: Order Comment: Name Collection Type:: Voided Performed By: #### C BC, BMP #### [place] [address] [place] Color (U) Yellow Normal Yellow [facility] Comment on above: Order Comment: Name Collection Type:: Voided Performed By: #### C BC, BMP #### [address] Glucose Ql (U) Normal Normal Normal [facility] Comment on above: Order Comment: Name Collection Type:: Voided Performed By: #### C BC, BMP #### [address] Ketones Ql (U) Negative Normal Negative [facility] Comment on above: Order Comment: Name Collection Type:: Voided Performed By: #### C BC, BMP #### [address] Leukocyte esterase Test strip Ql (U) Negative Normal Negative [facility] Comment on above: Order Comment: Name Collection Type:: Voided Performed By: #### C BC, BMP #### [place] [address] [place] Nitrite,Urine Negative Normal Negative [facility] Comment on above: Order Comment: Name Collection Type:: Voided Performed By: #### C BC, BMP #### [address] Occult Blood,Urine Negative Normal Negative [facility] Comment on above: Order Comment: Name Collection Type:: Voided Result Comment: PERF ORMED BY: [place] [address] PATHOLOGIST BELL CLEANER ADRIEN RAMIREZ M.D. Performed By: #### C BC, BMP #### [place] [address] [place] pH (U) 5.5 [pH] Normal 5.0-9.0 [facility] Comment on above: Order Comment: Name Collection Type:: Voided Performed By: #### C BC, BMP #### [place] [address] [place] Protein,Urine Negative Normal Negative [facility] Comment on above: Order Comment: Name Collection Type:: Voided Performed By: #### C BC, BMP #### [address] Specificy [place],Urine 1.021 Normal 1.001-1.030 [facility] Comment on above: Order Comment: Name Collection Type:: Voided Performed By: #### C BC, BMP #### [address] Urobilinogen,Urine Normal Normal Normal [facility] Comment on above: Order Comment: Name Collection Type:: Voided Performed By: #### C BC, BMP #### [address] B-Type Natriuretic Peptideon 06-23-2022 Natriuretic peptide B (Bld) [Mass/Vol] 343.0 pg/mL High 5-100 [facility] Comment on above: Result Comment: PERF ORMED BY: [place] [address] PATHOLOGIST BELL CLEANER ADRIEN RAMIREZ M.D. Performed By: #### B PETROLEUM ENGINEERING PROFESSOR #### [address] Basic Metabolic Panelon 06-05 Calcium [Mass/Vol] 8.2 mg/dL Normal 8.2-10.[address] [facility] Comment on above: Performed By: #### C BC, BMP #### [place] [address] [place] Chloride [Moles/Vol] 103 mmol/L Normal 95-114 [facility] Comment on above: Performed By: #### C BC, BMP #### [address] CO2 [Moles/Vol] 27.3 mmol/L Normal 22.0-30.0 [facility] Comment on above: Performed By: #### C BC, BMP #### [address] Creatinine [Mass/Vol] 1.86 mg/dL High 0.64-1.27 [facility] Comment on above: Performed By: #### C BC, BMP #### [address] Creatinine Clr Calc Pharmacy 53.59 [facility] Comment on above: Result Comment: PERF ORMED BY: [place] [address] PATHOLOGIST BELL CLEANER ADRIEN RAMIREZ M.D. Performed By: #### C BC, BMP #### [address] Estimated GFR ( Janeen 43 [facility] Comment on above: Result Comment: GFR estimated reference range: According to KDOQI guidelines, <60 ml/min/1.73m2 is sufficient to diagnose a patient with chronic kidney disease. Performed By: #### C BC, BMP #### [place] [address] [place] Estimated GFR (Non- Am 36 [facility] Comment on above: Performed By: #### C BC, BMP #### [address] Glucose [Mass/Vol] 144 mg/dL High 70-[address] [facility] Comment on above: Result Comment: [place] Glucose Reference Range is dependent on time and content of last meal. Glucose of more than 200 mg/dL in a nonstressed, ambulatory subject supports the diagnosis of Diabetes Mellitus. ADA recommended reference range Performed By: #### C BC, BMP #### [address] Potassium [Moles/Vol] 3.8 mmol/L Normal 3.5-5.1 [facility] Comment on above: Performed By: #### C BC, BMP #### [address] Sodium [Moles/Vol] 138 mmol/L Normal 136-[address] [facility] Comment on above: Performed By: #### C BC, BMP #### [place] [address] [place] Urea nitrogen [Mass/Vol] 42 mg/dL High 9-23 [facility] Comment on above: Performed By: #### C BC, BMP #### [address] Complete Blood Count Auto Di ffon 06-23-2022 Basophils (Bld) [#/Vol] 0.0 10*3/uL Normal 0.0-0.2 [facility] Comment on above: Result Comment: PERF ORMED BY: [place] [address] PATHOLOGIST BELL CLEANER ADRIEN RAMIREZ M.D. Performed By: #### C AMANDEEP, BMP #### [address] Basophils/100 WBC (Bld) 0.3 % Normal . [facility] Comment on above: Performed By: #### C BC, BMP #### [address] Eosinophils (Bld) [#/Vol] 0.6 10*3/uL High 0.0-0.45 [facility] Comment on above: Performed By: #### C BC, BMP #### [address] Eosinophils/100 WBC (Bld) 6.6 % Normal . [facility] Comment on above: Performed By: #### C BC, BMP #### [address] Erythrocyte distribution width (RBC) [Ratio] 14.6 % Normal 12.0-14.8 [facility] Comment on above: Performed By: #### C BC, BMP #### [address] Hematocrit (Bld) [Volume fraction] 39.2 % Normal 38.8-50.0 [facility] Comment on above: Performed By: #### C BC, BMP #### [address] Hemoglobin (Bld) [Mass/Vol] 12.8 g/dL Low 13.0-17.0 [facility] Comment on above: Performed By: #### C BC, BMP #### [facility] [address] Lymphocytes (Bld) [#/Vol] 1.8 10*3/uL Normal 1.00-4.8 [facility] Comment on above: Performed By: #### C BC, BMP #### [facility] [address] Lymphocytes/100 WBC (Bld) 21.7 % Normal . [facility] Comment on above: Performed By: #### C BC, BMP #### [facility] [address] MCH (RBC) [Entitic mass] 30.0 pg Normal 27.5-35.2 [facility] Comment on above: Performed By: #### C BC, BMP #### [facility] [address] MCV (RBC) [Entitic vol] 92.1 fL Normal 83.5-101 [facility] Comment on above: Performed By: #### C BC, BMP #### [facility] [address] Mean Corpuscular HGB Conc 32.5 g/dL Normal 32.5-35.6 [facility] Comment on above: Performed By: #### C BC, BMP #### [facility] [address] [place] [address] [place] Monocytes (Bld) [#/Vol] 0.5 10*3/uL Normal 0.0-0.8 [facility] Comment on above: Performed By: #### C BC, BMP #### [facility] [address] [place] [address] [place] Monocytes/100 WBC (Bld) 6.3 % Normal . [facility] Comment on above: Performed By: #### C BC, BMP #### [facility] [address] Neutrophils (Bld) [#/Vol] 5.5 10*3/uL Normal 1.8-7.7 [facility] Comment on above: Performed By: #### C BC, BMP #### [facility] [address] [place] [address] [place] Neutrophils/100 WBC (Bld) 65.1 % Normal . [facility] Comment on above: Performed By: #### C BC, BMP #### [facility] [address] [place] [address] [place] Nucleated RBC/100 WBC (Bld) [Ratio] 0.0 % Normal 0-0.5 [facility] Comment on above: Performed By: #### C BC, BMP #### [facility] [address] Platelet mean volume (Bld) [Entitic vol] 9.1 fL Normal 6.6-10.1 [facility] Comment on above: Performed By: #### C BC, BMP #### [facility] [address] [place] [address] [place] Platelets (Bld) [#/Vol] 165 10*3/uL Normal 150-450 [facility] Comment on above: Performed By: #### C BC, BMP #### [facility] [address] [place] [address] [place] RBC (Bld) [#/Vol] 4.26 10*6/uL Normal 3.90-5.60 [facility] Comment on above: Performed By: #### C BC, BMP #### [facility] [address] [place] [address] [place] WBC (Bld) [#/Vol] 8.4 10*3/uL Normal 4.5-11.[address] [facility] Comment on above: Performed By: #### C BC, BMP #### [facility] [address] [place] [address] [place] Basophils (Bld) [#/Vol] 0.0 10*3/uL Normal 0.0-0.2 [facility] Comment on above: Result Comment: PERF ORMED BY: [place] [address] PATHOLOGIST BELL CLEANER ADRIEN RAMIREZ M.D. Performed By: #### C BC, CMP, HS TROP #### [facility] [address] [place] [address] [place] Basophils/100 WBC (Bld) 0.4 % Normal . [facility] Comment on above: Performed By: #### C BC, CMP, HS TROP #### [facility] [address] Eosinophils (Bld) [#/Vol] 0.5 10*3/uL High 0.0-0.45 [facility] Comment on above: Performed By: #### C BC, CMP, HS TROP #### [facility] [address] [place] [address] [place] Eosinophils/100 WBC (Bld) 4.0 % Normal . [facility] Comment on above: Performed By: #### C BC, CMP, HS TROP #### [facility] [address] Erythrocyte distribution width (RBC) [Ratio] 14.7 % Normal 12.0-14.8 [facility] Comment on above: Performed By: #### C BC, CMP, HS TROP #### [facility] [address] Hematocrit (Bld) [Volume fraction] 41.3 % Normal 38.8-50.0 [facility] Comment on above: Performed By: #### C BC, CMP, HS TROP #### [facility] [address] [place] [address] [place] Hemoglobin (Bld) [Mass/Vol] 13.4 g/dL Normal 13.0-17.0 [facility] Comment on above: Performed By: #### C BC, CMP, HS TROP #### [facility] [address] [place] [address] [place] Lymphocytes (Bld) [#/Vol] 2.0 10*3/uL Normal 1.00-4.8 [facility] Comment on above: Performed By: #### C BC, CMP, HS TROP #### [facility] [address] [place] [address] [place] Lymphocytes/100 WBC (Bld) 17.2 % Normal . [facility] Comment on above: Performed By: #### C BC, CMP, HS TROP #### [address] MCH (RBC) [Entitic mass] 30.1 pg Normal 27.5-35.2 [facility] Comment on above: Performed By: #### C BC, CMP, HS TROP #### [address] MCV (RBC) [Entitic vol] 92.6 fL Normal 83.5-101 [facility] Comment on above: Performed By: #### C BC, CMP, HS TROP #### [address] Mean Corpuscular HGB Conc 32.4 g/dL Low 32.5-35.6 [facility] Comment on above: Performed By: #### C BC, CMP, HS TROP #### [address] Monocytes (Bld) [#/Vol] 0.7 10*3/uL Normal 0.0-0.8 [facility] Comment on above: Performed By: #### C BC, CMP, HS TROP #### [address] Monocytes/100 WBC (Bld) 5.8 % Normal . [facility] Comment on above: Performed By: #### C BC, CMP, HS TROP #### [address] Neutrophils (Bld) [#/Vol] 8.4 10*3/uL High 1.8-7.7 [facility] Comment on above: Performed By: #### C BC, CMP, HS TROP #### [address] Neutrophils/100 WBC (Bld) 72.6 % Normal . [facility] Comment on above: Performed By: #### C BC, CMP, HS TROP #### [place] [address] [place] Nucleated RBC/100 WBC (Bld) [Ratio] 0.0 % Normal 0-0.5 [facility] Comment on above: Performed By: #### C BC, CMP, HS TROP #### [facility] [address] Platelet mean volume (Bld) [Entitic vol] 9.0 fL Normal 6.6-10.1 [facility] Comment on above: Performed By: #### C BC, CMP, HS TROP #### [facility] [address] Platelets (Bld) [#/Vol] 204 10*3/uL Normal 150-450 [facility] Comment on above: Performed By: #### C BC, CMP, HS TROP #### [address] RBC (Bld) [#/Vol] 4.45 10*6/uL Normal 3.90-5.60 [facility] Comment on above: Performed By: #### C BC, CMP, HS TROP #### [address] WBC (Bld) [#/Vol] 11.6 10*3/uL High 4.5-11.0 [facility] Comment on above: Performed By: #### C BC, CMP, HS TROP #### [facility] [address] [place] [address] Comprehensive Metabolic Pane isidro 06-23-2022 Albumin [Mass/Vol] 2.9 g/dL Low 3.2-5.[address] [facility] [address] [facility] Comment on above: Performed By: #### C BC, CMP, HS TROP #### [facility] [address] [place] [address] Albumin/Globulin [Mass ratio] 0.7 {ratio} Normal [facility] Comment on above: Performed By: #### C BC, CMP, HS TROP #### [facility] [address] [place] [address] ALP [Catalytic activity/Vol] 70 U/L Normal 32-92 [facility] Comment on above: Performed By: #### C BC, CMP, HS TROP #### [facility] [address] [place] [id number] [place] ALT [Catalytic activity/Vol] 20 U/L Normal 10-60 [facility] Comment on above: Performed By: #### C BC, CMP, HS TROP #### [facility] [address] [place] [address] [place] AST [Catalytic activity/Vol] 20 U/L Normal 10-42 [facility] Comment on above: Performed By: #### C BC, CMP, HS TROP #### [facility] [address] [place] [address] [place] Bilirubin [Mass/Vol] 1.2 mg/dL Normal 0.3-1.2 [facility] Comment on above: Performed By: #### C BC, CMP, HS TROP #### [facility] [address] [place] [address] [place] Calcium [Mass/Vol] 8.8 mg/dL Normal 8.2-10.[address] [facility] Comment on above: Performed By: #### C BC, CMP, HS TROP #### [facility] [address] [place] [address] [place] Chloride [Moles/Vol] 97 mmol/L Normal 95-114 [facility] Comment on above: Performed By: #### C BC, CMP, HS TROP #### [facility] [address] [place] [address] [place] CO2 [Moles/Vol] 28.1 mmol/L Normal 22.0-30.0 [facility] Comment on above: Performed By: #### C BC, CMP, HS TROP #### [facility] [address] [place] [id number] [place] Creatinine [Mass/Vol] 1.87 mg/dL High 0.64-1.27 [facility] Comment on above: Performed By: #### C BC, CMP, HS TROP #### [facility] [address] [place] [id number] [place] Creatinine Clr Calc Pharmacy 52.98 Normal [facility] Comment on above: Result Comment: PERF ORMED BY: [place] [address] PATHOLOGIST [employer]LL CLEANER ADRIEN RAMIREZ M.D. Performed By: #### C BC, CMP, HS TROP #### [address] Estimated GFR ( Janeen 43 [facility] Comment on above: Result Comment: GFR estimated reference range: According to KDOQI guidelines, <60 ml/min/1.73m2 is sufficient to diagnose a patient with chronic kidney disease. Performed By: #### C BC, CMP, HS TROP #### [address] Estimated GFR (Non- Am 35 [facility] Comment on above: Performed By: #### C BC, CMP, HS TROP #### [address] Globulin (S) [Mass/Vol] 4.0 g/dL [facility] Comment on above: Performed By: #### C BC, CMP, HS TROP #### [address] Glucose [Mass/Vol] 121 mg/dL High 70-[address] [facility] Comment on above: Result Comment: [place] om Glucose Reference Range is dependent on time and content of last meal. Glucose of more than 200 mg/dL in a nonstressed, ambulatory subject supports the diagnosis of Diabetes Mellitus. ADA recommended reference range Performed By: #### C BC, CMP, HS TROP #### [facility] [address] [place] [address] Potassium [Moles/Vol] 4.1 mmol/L Normal 3.5-5.1 [facility] Comment on above: Performed By: #### C BC, CMP, HS TROP #### [facility] [address] [place] [address] Protein [Mass/Vol] 6.9 g/dL Normal 6.1-7.[address] [facility] Comment on above: Performed By: #### C BC, CMP, HS TROP #### [facility] [address] [place] [address] Sodium [Moles/Vol] 137 mmol/L Normal 136-[address] [facility] Comment on above: Performed By: #### C BC, CMP, HS TROP #### [address] Urea nitrogen [Mass/Vol] 41 mg/dL High 9-23 [facility] Comment on above: Performed By: #### C BC, CMP, HS TROP #### [address] Creatinine, Urine (Random)on 06-23-2022 Creatinine, Urine (Random) 60.1 mg/dL Normal [facility] Comment on above: Result Comment: No r eference range established Performed By: #### U NA, UCREA #### [address] #### UR UREA NIT #### [facility] , [facility] echo transthoracicon [facility] echo transthoracic [facility] [place] [address] [place] [address] Echocardiogram Signed Patient: Rafael Cabral MR#: [id number] : 1945 Acct:[id number] Age/Sex: 76 / M ADM Date: 06/22/22 Loc: Room: [address] [place] [address] Type: DIS IN Attending Dr: Rafael Napier MD Ordering Provider: Nely Michelle APRN Date of Service: 06/22/22 [facility] echo transthoracic: CHF Copies to: Susi Rivas MD, [facility] Nely Michelle APRN Height: 71 in Weight: 360 lb Performed By: Rani Ramos RDCS BSA: 2.7 m2 BP: 115/65 mmHg HR: [...] V1 max: 94.7 cm/sec (0.7-1.7m/s)MV E max nancy: 53.6 cm/sec(0.8-1.3m/s) MV A max nancy: 99.0 cm/sec(0.0-0.0m/s) MV E/A: 0.54 (<1.5) MMode/2D Measurements Calculations RVDd: 6.6 cm RV Base: 4.9 cm FS: 30.0 % Ao root area: TAPSE: 2.5 cm RV Mid: 5.8 cm EDV(Teich): 7.8 cm2 RV S Nancy: 12.7 cm/sec RV Length: 9.5 cm 89.2 [...] max PG: TV max PG: TR max nancy: 3.6 mmHg 45.0 mmHg 336.6 cm/sec LV V1 mean PG: TR max P.3 mmHg 2.6 mmHg RAP systole: 10.0 mmHg LV V1 mean: 79.0 cm/sec LV V1 VTI: 13.4 cm Transcribed By: MARGIEV Performed At: 06/23/22 0952 Signed By: Susi Rivas MD, [facility] 06/23/22 1045 Normal [facility] NM pul perfusionon 2 NM pul perfusion [facility] [place] [address] Nuclear Medicine Report Signed with Addenda Patient: Rafael Cabral MR#: [id number] : 1945 Acct:[id number] Age/Sex: 76 / M ADM Date: 06/22/22 Loc: Room: [address] [place] [address] Type: ADM IN Attending Dr: Rafael Napier MD Copies to: MD Fely Etienne MD Linda Obika, APRN Ordering Provider: Nely Michelle APRN Date of Service: 06/23/22 [place] pul perfusion: R/O PE ADDENDUM 1 Patient's nurse was notified of findings at the time of this interpretation at 1511 hours Impression dictated by: Fely Henderson M.D.06/23/2022 3:12 PM Dictation Location: [place] [address] Addendum Dictated By: MD Fely Henderson Addendum [...] Fely Henderson M.D.06/23/2022 3:06 PM Dictation Location: [place] [address] Transcribed By: [facility] 06/23/22 1506 Dictated By: Fely Henderson MD 06/23/22 1456 Signed By: 06/23/22 1506 Normal [facility] Partial Thromboplastin Timeo n 06-23-2022 aPTT Coag (Bld) [Time] 88.0 s High 25.1-36.5 [facility] Comment on above: Result Comment: PERF ORMED BY: [place] [address] PATHOLOGIST BELL CLEANER ADRIEN RAMIREZ M.D. Performed By: #### C BC, BMP #### [facility] [address] [place] [address] [place] aPTT Coag (Bld) [Time] 72.0 s High 25.1-36.5 [facility] Comment on above: Result Comment: PERF ORMED BY: [place] [address] PATHOLOGIST [employer]LL CLEANER ADRIEN RAMIREZ M.D. Performed By: #### P TT #### [facility] [address] [place] [address] [place] aPTT Coag (Bld) [Time] 53.8 s High 25.1-36.5 [facility] Comment on above: Result Comment: PERF ORMED BY: [facility] [address] [place] [address] PATHOLOGIST BELL CLEANER ADRIEN RAMIREZ M.D. Performed By: #### C BC, BMP #### [facility] [address] [place] [address] [place] aPTT Coag (Bld) [Time] 43.5 s High 25.1-36.5 [facility] Comment on above: Result Comment: PERF ORMED BY: [facility] [address] [place] [address] PATHOLOGIST BELL CLEANER ADRIEN RAMIREZ M.D. Performed By: #### C BC, BMP #### [facility] [address] Prothrombin Time INRon 06-23 INR Coag (PPP) [Relative time] 1.3 {INR} Normal [facility] Comment on above: Result Comment: INR [...] 3 - 4.5 Performed By: #### C AMANDEEP, BMP #### [address] PT Coag (PPP) [Time] 14.1 s High 9.0-12.9 [facility] Comment on above: Performed By: #### C AMANDEEP, BMP #### [address] INR Coag (PPP) [Relative time] 1.3 {INR} Normal [facility] Comment on above: Result Comment: INR [...] 3 - 4.5 Performed By: #### C AMANDEEP, BMP #### [address] PT Coag (PPP) [Time] 14.2 s High 9.0-12.9 [facility] Comment on above: Performed By: #### C BC, BMP #### [address] Sodium, Urine (Random)on Sodium (U) [Moles/Vol] 105 mmol/L Normal [facility] Comment on above: Result Comment: No r eference range established PERFORMED BY: [place] [address] PATHOLOGIST BELL CLEANER ADRIEN RAMIREZ M.D. Performed By: #### U NA, UCREA #### [address] #### UR UREA NIT #### [facility] , Troponin I High Sensitivityo n 06-23-2022 Troponin I High Sensitivity 174 pg/mL Off scale high 0-20 [facility] Comment on above: Result Comment: Resu lts called at 0721 on 06/23/22 PERFORMED BY: [place] [address] PATHOLOGIST BELL CLEANER ADRIEN RAMIREZ M.D. Performed By: #### C BC, BMP #### [address] Troponin I High Sensitivity 244 pg/mL Off scale high 0-20 [facility] Comment on above: Result Comment: Resu lts called at 2345 on 06/22/22 PERFORMED BY: [place] [address] PATHOLOGIST BELL CLEANER ADRIEN RAMIREZ M.D. Performed By: #### C BC, CMP, HS TROP #### [address] Urine Urea Nitrogenon 2021 Urine Urea Nitrogen 392 mg/dL Normal Not Estab. [facility] Comment on above: Result Comment: Perf ormed at: CB - [facility] [address] [phone] Go Cart Mechanic: Solo Burden PhD, Phone: [phone] PERFORMED BY: [place] [address] PATHOLOGIST BELL CLEANER ADRIEN RAMIREZ M.D. Performed By: #### U NA, UCREA #### [place] [address] [place] #### UR UREA NIT #### [facility] , XR chest 1V portableon 06-23 XR chest 1V portable [facility] [place] [address] XRay Report Signed Patient: Rafael Cabral MR#: [id number] : 1945 Acct:[id number] Age/Sex: 76 / M ADM Date: 06/22/22 Loc: Room: [address] [place] [address] Type: ADM IN Attending Dr: Rafael Napier MD Copies to: MD Nely Etienne [...] Jayson Marsh M.D.06/23/2022 8:51 AM Dictation Location: [place] [address] Transcribed By: [facility] 06/23/22 0851 Dictated By: Jayson Marsh DO 06/23/22 0849 Signed By: 06/23/22 0851 [facility] BNPon 06-22-2022 Natriuretic peptide B (Bld) [Mass/Vol] 35471.0 pg/mL Critically high <=1,800.0 [facility] Comment on above: Performed By: #### F T4, PSASC #### [facility] [address] [address] [address] Cole Echeverria CBC AUTO DIFFon 06-22-2022 BASO # 0.0 103/ul Normal 0.0-0.1 [facility] Comment on above: Performed By: #### T SH, FT3 #### [facility] [address] [address] [address] Cole Echeverria Basophils/100 WBC (Bld) 0.2 % Normal 0.2-2.0 [facility] Comment on above: Performed By: #### T SH, FT3 #### [facility] [address] [place] [address] Dr. Cole Echeverria EO # 0.3 103/ul Normal 0.0-0.7 [facility] Comment on above: Performed By: #### T SH, FT3 #### [facility] [address] [place] [address] Dr. Cole Echeverria Eosinophils/100 WBC (Bld) 2.8 % Normal 0.9-7.0 [facility] Comment on above: Performed By: #### T SOPHIE, FT3 #### [facility] [address] [place] [address] Dr. Cole Echeverria Erythrocyte distribution width (RBC) [Ratio] 14.5 % Normal 11.0-15.0 [facility] Comment on above: Performed By: #### T SOPHIE, FT3 #### [facility] [address] [place] [address] Dr. Cole Echeverria Hematocrit (Bld) [Volume fraction] 41.4 % Critically low 42.0-54.0 [facility] Comment on above: Performed By: #### T SOPHIE, FT3 #### [facility] [address] [place] [address] Dr. Cole Echeverria Hemoglobin (Bld) [Mass/Vol] 13.2 g/dL Critically low 14.0-18.0 [facility] Comment on above: Performed By: #### T SOPHIE, FT3 #### [facility] [address] [place] [address] Dr. Cole Echeverria IG # 0.05 10e3/ul Critically high 0.00-0.03 [facility] Comment on above: Performed By: #### T SOPHIE, FT3 #### [facility] [address] [place] [address] Dr. Cole Echeverria IG % 0.4 % Normal 0.0-0.5 [facility] Comment on above: Performed By: #### T SOPHIE, FT3 #### [facility] [address] [place] [address] Dr. Cole Echeverria LYMPH # 1.8 103/ul Normal 1.2-3.8 [facility] Comment on above: Performed By: #### T SH, FT3 #### [facility] [address] [place] [address] Dr. Cole Echeverria Lymphocytes/100 WBC (Bld) 14.7 % Critically low 20.5-60.0 [facility] Comment on above: Performed By: #### T SH, FT3 #### [facility] [address] [place] [address] Dr. Cole Echeverria MANUAL DIFF REQ NO Normal [facility] Comment on above: Performed By: #### T SOPHIE, FT3 #### [facility] [address] [place] [address] Dr. Cole Echeverria MCH (RBC) [Entitic mass] 29.8 pg Normal 25.9-34.0 [facility] Comment on above: Performed By: #### T SOPHIE, FT3 #### [facility] [address] [place] [address] Dr. Cole Echeverria MCHC (RBC) [Mass/Vol] 31.9 g/dL Normal 29.9-35.2 [facility] Comment on above: Performed By: #### T SOPHIE, FT3 #### [facility] [address] [place] [address] Dr. Cole Echeverria MCV (RBC) [Entitic vol] 93.5 fL Normal 80.0-94.0 [facility] Comment on above: Performed By: #### T SOPHIE, FT3 #### [facility] [address] [place] [address] Dr. Cole Echeverria MONO # 0.7 103/ul Normal 0.3-0.8 [facility] Comment on above: Performed By: #### T SOPHIE, FT3 #### [facility] [address] [place] [address] Dr. Cole Echeverria Monocytes/100 WBC (Bld) 6.1 % Normal 1.7-12.0 [facility] Comment on above: Performed By: #### T , FT3 #### [facility] [address] [place] [address] Dr. Cole Echeverria NEUT # 9.2 103/ul Critically high 1.4-6.5 [facility] Comment on above: Performed By: #### T , FT3 #### [facility] [address] [place] [address] Dr. Cole Echeverria Neutrophils/100 WBC (Bld) 75.8 % Critically high 43.0-75.0 [facility] Comment on above: Performed By: #### T , FT3 #### [facility] [address] [place] [address] Dr. Cole Echeverria Platelet mean volume (Bld) [Entitic vol] 10.2 fL Normal 9.5-13.5 [facility] Comment on above: Performed By: #### T , FT3 #### [facility] [address] [place] [address] Dr. Cole Echeverria PLT 185 103/ul Normal 150-450 [facility] Comment on above: Performed By: #### T , FT3 #### [facility] [address] [place] [address] Dr. Cole Echeverria RBC 4.43 106/ul Critically low 4.70-6.10 [facility] Comment on above: Performed By: #### T , FT3 #### [facility] [address] [place] [address] Dr. Cole Echeverria WBC 12.1 103/ul Critically high 4.0-11.[address] [facility] Comment on above: Performed By: #### T , FT3 #### [facility] [address] [place] [address] Dr. Cole Echeverria Covid-19 PCR [facility]on 06-05 SARS-CoV-2 (COVID-19) RNA HALEIGH+probe Ql (Unsp spec) Not detected Normal NOT DETECTED [facility] Comment on above: Result Comment: When [...] for this test is supported by the [employer] of Health and Human Service's declaration that [...] used). Performed By: #### C VDTBH #### [facility] [address] [place] [address] Dr. Cole Echeverria D-DIMERon 06-22-2022 D-DIMER 15.71 mg/L FEU Critically high <=0.59 [facility] Comment on above: Performed By: #### F T4, PSASC #### [facility] [address] [place] [address] Dr. Cole Echeverria D-DIMER COMMENTS SEE BELOW Normal [facility] Comment on above: Result Comment: Incr eases [...] Performed By: #### F T4, PSASC #### [facility] [address] [place] [address] Dr. Cole Echeverria PROF 14(COMP METB)on 022 Albumin [Mass/Vol] 2.9 g/dL Critically low 3.4-5.0 [facility] Comment on above: Performed By: #### F T4, PSASC #### [facility] [address] [place] [address] Dr. Cole Echeverria Albumin/Globulin [Mass ratio] 0.7 {ratio} Normal [facility] Comment on above: Performed By: #### F T4, PSASC #### [facility] [address] [place] [address] Dr. Cole Echeverria ALP [Catalytic activity/Vol] 89 U/L Normal 46-116 [facility] Comment on above: Performed By: #### F T4, PSASC #### [facility] [address] [place] [address] [address] Cole Echeverria ALT [Catalytic activity/Vol] 21 U/L Normal 16-63 [facility] Comment on above: Performed By: #### F T4, PSASC #### [facility] [address] [place] [address] Dr. Cole Echeverria Anion gap [Moles/Vol] 11.8 mmol/L Normal [facility] Comment on above: Performed By: #### F T4, PSASC #### [facility] [address] [place] [address] Dr. Cole Echeverria AST [Catalytic activity/Vol] 19 U/L Normal 15-37 [facility] Comment on above: Performed By: #### F T4, PSASC #### [facility] [address] [place] [address] Dr. Cole Echeverria Bilirubin [Mass/Vol] 0.8 mg/dL Normal 0.2-1.0 [facility] Comment on above: Performed By: #### F T4, PSASC #### [facility] [address] [place] [address] Dr. Cole Echeverria Calcium [Mass/Vol] 9.0 mg/dL Normal 8.5-10.1 [facility] Comment on above: Performed By: #### F T4, PSASC #### [facility] [address] [place] [address] Dr. Cole Echeverria Chloride [Moles/Vol] 101 mmol/L Normal 98-107 [facility] Comment on above: Performed By: #### F T4, PSASC #### [facility] [address] [place] [address] Dr. Cole Echeverria CO2 [Moles/Vol] 29.3 mmol/L Normal 21.0-32.0 [facility] Comment on above: Performed By: #### F T4, PSASC #### [facility] [address] [place] [address] [address] Cole Echeverria Creatinine [Mass/Vol] 2.25 mg/dL Critically high 0.70-1.30 [facility] Comment on above: Performed By: #### F T4, PSASC #### [facility] [address] [place] [address] [address] Cole Echeverria EGFR-AF BERMUDIAN 35 mL/min/1.73m2 Critically low >=60 [facility] Comment on above: Performed By: #### F T4, PSASC #### [facility] [address] [place] [address] Dr. Cole Echeverria EGFR-NON AF BERMUDIAN 29 mL/min/1.73m2 Critically low >=60 [facility] Comment on above: Performed By: #### F T4, PSASC #### [facility] [address] [place] [address] Dr. Cole Echeverria Globulin (S) [Mass/Vol] 4.3 g/dL Normal [facility] Comment on above: Performed By: #### F T4, PSASC #### [facility] [address] [place] [address] Dr. Cole Echeverria Glucose [Mass/Vol] 116 mg/dL Critically high 74-106 [facility] Comment on above: Performed By: #### F T4, PSASC #### [facility] [address] [place] [address] Dr. Cole Echeverria Potassium [Moles/Vol] 5.1 mmol/L Normal 3.5-5.1 [facility] Comment on above: Performed By: #### F T4, PSASC #### [facility] [address] [place] [address] [address] Cole Echeverria Protein [Mass/Vol] 7.2 g/dL Normal 6.4-8.2 [facility] Comment on above: Performed By: #### F T4, PSASC #### [facility] [address] [place] [address] Dr. Cole Echeverria Sodium [Moles/Vol] 137 mmol/L Normal 136-145 [facility] Comment on above: Performed By: #### F T4, PSASC #### [facility] [address] [place] [address] Dr. Cole Echeverria Urea nitrogen [Mass/Vol] 49.0 mg/dL Critically high 7.0-18.0 [facility] Comment on above: Performed By: #### F T4, PSASC #### [facility] [address] [place] [address] Dr. Cole Echeverria Urea nitrogen/Creatinine [Mass ratio] 21.8 mg/mg Normal [facility] Comment on above: Performed By: #### F T4, PSASC #### [facility] [address] [place] [address] Dr. Cole Echeverria PROTIMEon 06-22-2022 INR Coag (PPP) [Relative time] 1.06 {INR} Normal [facility] Comment on above: Performed By: #### T SH, FT3 #### [facility] [address] [place] [address] Dr. Cole Echeverria INR GUIDELINES SEE BELOW Normal [facility] Comment on above: Result Comment: MÓNICA RED INR: 2.0 - 3.0 CONDITIONS NOT LISTED BELOW 2.5 - 3.5 FOR PROSTHETIC HEART VALVE REPLACEMENT 2.5 - 3.5 RECURRENT THROMBOSIS Performed By: #### T SH, FT3 #### [facility] [address] [place] [address] Dr. Cole Echeverria PT Coag (PPP) [Time] 11.4 s Normal 9.0-11.6 [facility] Comment on above: Performed By: #### T SH, FT3 #### [facility] [address] [place] [address] Dr. Cole Echeverria PTTon 06-22-2022 aPTT Coag (Bld) [Time] 33.9 s Normal 22.3-36.2 [facility] Comment on above: Performed By: #### T SH, FT3 #### [facility] [address] [address] [address] Cole Echeverria TROPONIN, HIGH SENSITIVITYon 06-22-2022 HSTROP 345.5 pg/mL Critically high 4.0-76.[address] [facility] Comment on above: Result Comment: CUT- OFF POINTS HAVE BEEN ESTABLISHED BASED ON THE FOURTH UNIVERSAL DEFINITIONS OF MYOCARDIAL INFARCTION. THE UPPER REFERENCE LIMIT (URL) OF TROPONIN, DEFINED THE 99TH PERCENTILE OF cTnI DISTRIBUTION IN A REFERENCE POPULATION, HAS BEEN CONFIRMED THE DECISION THRESHOLD FOR LA DIAGNOSIS. Performed By: #### F T4, PSASC #### [facility] [address] [address] [address] Cole Echeverria US JUAREZ DOP LEG [...] by: LAYO DAVISON Date: 2022-06-22 19:37 Normal [facility] XR CHEST 1 Von 06-22-2022 XR CHEST 1 V ONE-VIEW CHEST RADIOGRAPH, 06/22/2022 4:32 PM EDT COMPARISON: None. CLINICAL HISTORY: SHORTNESS OF BREATH Findings and impression: 1. Borderline pulmonary venous hypertension/pulmonary vascular congestion. 2. Borderline heart size. 3. No acute osseous abnormality. Electronically authenticated by: Richard PATRICIA Date: 2022-06-22 17:48 Normal [facility] CBC AUTO DIFFon 04-05-2022 BASO # 0.0 103/ul Normal 0.0-0.1 [facility] Comment on above: Performed By: #### T SH, FT3 #### [facility] [address] [address] [address] Cole Echeverria Basophils/100 WBC (Bld) 0.4 % Normal 0.2-2.0 [facility] Comment on above: Performed By: #### T SH, FT3 #### [facility] [address] [place] [address] Dr. Cole Echeverria EO # 0.2 103/ul Normal 0.0-0.7 [facility] Comment on above: Performed By: #### T SH, FT3 #### [facility] [address] [place] [address] Dr. Cole Echeverria Eosinophils/100 WBC (Bld) 2.3 % Normal 0.9-7.0 [facility] Comment on above: Performed By: #### T SOPHIE, FT3 #### [facility] [address] [place] [address] Dr. Cole Echeverria Erythrocyte distribution width (RBC) [Ratio] 13.0 % Normal 11.0-15.0 [facility] Comment on above: Performed By: #### T SOPHIE, FT3 #### [facility] [address] [place] [address] Dr. Cole Echeverria Hematocrit (Bld) [Volume fraction] 45.7 % Normal 42.0-54.0 [facility] Comment on above: Performed By: #### T SOPHIE, FT3 #### [facility] [address] [place] [address] Dr. Cole Echeverria Hemoglobin (Bld) [Mass/Vol] 14.4 g/dL Normal 14.0-18.0 [facility] Comment on above: Performed By: #### T SOPHIE, FT3 #### [facility] [address] [place] [address] Dr. Cole Echeverria IG # 0.02 10e3/ul Normal 0.00-0.03 [facility] Comment on above: Performed By: #### T SOPHIE, FT3 #### [facility] [address] [place] [address] Dr. Cole Echeverria IG % 0.3 % Normal 0.0-0.5 [facility] Comment on above: Performed By: #### T SOPHIE, FT3 #### [facility] [address] [place], [place] [id number] Dr. Cole Echeverria LYMPH # 1.8 103/ul Normal 1.2-3.8 [facility] Comment on above: Performed By: #### T SH, FT3 #### [facility] [address] [place] [address] Dr. Cole Echeverria Lymphocytes/100 WBC (Bld) 22.6 % Normal 20.5-60.0 [facility] Comment on above: Performed By: #### T SH, FT3 #### [facility] [address] [place] [address] Dr. Cole Echeverria MANUAL DIFF REQ NO Normal [facility] Comment on above: Performed By: #### T SOPHIE, FT3 #### [facility] [address] [place] [address] Dr. Cole Echeverria MCH (RBC) [Entitic mass] 31.1 pg Normal 25.9-34.0 [facility] Comment on above: Performed By: #### T SOPHIE, FT3 #### [facility] [address] [place] [address] Dr. Cole Echeverria MCHC (RBC) [Mass/Vol] 31.5 g/dL Normal 29.9-35.2 [facility] Comment on above: Performed By: #### T SOPHIE, FT3 #### [facility] [address] [place] [address] Dr. Cole Echeverria MCV (RBC) [Entitic vol] 98.7 fL Critically high 80.0-94.0 [facility] Comment on above: Performed By: #### T SOPHIE, FT3 #### [facility] [address] [place] [address] Dr. Cole Echeverria MONO # 0.5 103/ul Normal 0.3-0.8 [facility] Comment on above: Performed By: #### T SOPHIE, FT3 #### [facility] [address] [place] [address] Dr. Cole Echeverria Monocytes/100 WBC (Bld) 5.7 % Normal 1.7-12.0 [facility] Comment on above: Performed By: #### T SOPHIE, FT3 #### [facility] [address] [place] [address] Dr. Cole Echeverria NEUT # 5.4 103/ul Normal 1.4-6.5 [facility] Comment on above: Performed By: #### T SH, FT3 #### [facility] [address] [place] [address] Dr. Cole Echeverria Neutrophils/100 WBC (Bld) 68.7 % Normal 43.0-75.0 [facility] Comment on above: Performed By: #### T SH, FT3 #### [facility] [address] [place] [address] Dr. Cole Echeverria Platelet mean volume (Bld) [Entitic vol] 11.2 fL Normal 9.5-13.5 [facility] Comment on above: Performed By: #### T SOPHIE, FT3 #### [facility] [address] [place] [address] Dr. Cole Echeverria PLT 242 103/ul Normal 150-450 [facility] Comment on above: Performed By: #### T SOPHIE, FT3 #### [facility] [address] [place] [address] Dr. Cole Echeverria RBC 4.63 106/ul Critically low 4.70-6.10 [facility] Comment on above: Performed By: #### T SH, FT3 #### [facility] [address] [place] [address] Dr. Cole Echeverria WBC 7.8 103/ul Normal 4.0-11.0 [facility] Comment on above: Performed By: #### T SH, FT3 #### [facility] [address] [place] [address] Dr. Cole Echeverria FREE T3on 04-05-2022 FREE T3 1.39 pg/mlL Critically low 2.18-3.98 [facility] Comment on above: Performed By: #### B MP, ALT, AST, TSH, FT3, LIPID #### [facility] [address] [place] [address] Dr. Cole Echeverria FREE T4on 04-05-2022 Free T4 [Mass/Vol] 1.47 ng/dL Critically high 0.76-1.46 [facility] Comment on above: Performed By: #### F T4, PSASC #### [facility] [address] [place] [address] Dr. Cole Echeverria GLYCOHEMOGLOBIN A1Con 2021 ADA RECOMMENDATION SEE BELOW Normal [facility] Comment on above: Result Comment: ADA RECOMMENDED LIMIT 4.0 - 6.0 ADA THERAPEUTIC TARGET < 7.0 ACTION SUGGESTED > 7.0 Performed By: #### T SH, FT3 #### [facility] [address] [place] [address] Dr. Cole Echeverria Glucose [Mass/Vol] 103 mg/dL Normal [facility] Comment on above: Performed By: #### T SH, FT3 #### [facility] [address] [place] [address] Dr. Cole Echeverria HbA1c (Bld) [Mass fraction] 5.2 % Normal 4.5-6.2 [facility] Comment on above: Performed By: #### T SH, FT3 #### [facility] [address] [place] [address] Dr. Cole Echeverria LIPID PROFILEon 04-05-2022 CHOL-HDL RATIO NORM SEE BELOW Normal [facility] Comment on above: Result Comment: 3.3 - 4.4 LOW RISK 4.4 - 7.1 AVERAGE RISK 7.1 - 11.0 MODERATE RISK >11.0 HIGH RISK Performed By: #### T SH, FT3 #### [facility] [address] [place] [address] Dr. Cole Echeverria Cholesterol [Mass/Vol] 251 mg/dL Critically high <=200 [facility] Comment on above: Performed By: #### T SH, FT3 #### [facility] [address] [place] [address] Dr. Cole Echeverria Cholesterol in HDL [Mass/Vol] 36 mg/dL Critically low 40-60 [facility] Comment on above: Performed By: #### T SH, FT3 #### [facility] [address] [place] [address] Dr. Cole Echeverria Cholesterol in LDL [Mass/Vol] 189.8 mg/dL Normal [facility] Comment on above: Performed By: #### T SH, FT3 #### [facility] [address] [place] [address] Dr. Cole Echeverria Cholesterol.total/Ch olesterol in HDL [Mass ratio] 7.0 {ratio} Normal [facility] Comment on above: Performed By: #### T SH, FT3 #### [facility] [address] [place] [address] Dr. Cole Echeverria HDL NORMAL > or = 60 mg/dl - LO W CARDIOVASCULAR RISK <40 mg/dl - HIGH CARDIOVASCULAR RISK Normal [facility] Comment on above: Performed By: #### T SH, FT3 #### [facility] [address] [place] [address] Dr. Cole Echeverria LDL CALC NORMAL SEE BELOW Normal [facility] Comment on above: Result Comment: <100 mg/dl OPTIMAL 100 - 129 mg/dl NEAR OR ABOVE OPTIMAL 130 - 159 mg/dl BORDERLINE HIGH 160 - 189 mg/dl HIGH >190 mg/dl VERY HIGH Performed By: #### T SH, FT3 #### [facility] [address] [place] [address] Dr. Cole Echeverria Triglyceride [Mass/Vol] 126 mg/dL Normal <=150 [facility] Comment on above: Performed By: #### T SH, FT3 #### [facility] [address] [place] [address] Dr. Cole Echeverria VLDL CALC 25.2 mg/dL Normal [facility] Comment on above: Performed By: #### T SH, FT3 #### [facility] [address] [place] [address] Dr. Cole Echeverria PROF CHEM 8 (BAS METB)on Anion gap [Moles/Vol] 11.8 mmol/L Normal [facility] Comment on above: Performed By: #### B MP, ALT, AST, TSH, FT3, LIPID #### [facility] [address] [place] [address] Dr. Cole Echeverria Calcium [Mass/Vol] 8.9 mg/dL Normal 8.5-10.1 [facility] Comment on above: Performed By: #### B MP, ALT, AST, TSH, FT3, LIPID #### [facility] [address] [address] [address] Cole Echeverria Chloride [Moles/Vol] 104 mmol/L Normal 98-107 [facility] Comment on above: Performed By: #### B MP, ALT, AST, TSH, FT3, LIPID #### [facility] [address] [address] [address] Cole Echeverria CO2 [Moles/Vol] 29.9 mmol/L Normal 21.0-32.[address] [facility] Comment on above: Performed By: #### B MP, ALT, AST, TSH, FT3, LIPID #### [facility] [address] [address] [address] Cole Echeverria Creatinine [Mass/Vol] 1.35 mg/dL Critically high 0.70-1.30 [facility] Comment on above: Performed By: #### B MP, ALT, AST, TSH, FT3, LIPID #### [facility] [address] [address] [address] Cole Echeverria EGFR-AF BERMUDIAN >60 Normal >=[address] [facility] Comment on above: Performed By: #### B MP, ALT, AST, TSH, FT3, LIPID #### [facility] [address] [address] [address] Cole Echeverria EGFR-NON AF BERMUDIAN 52 mL/min/1.73m2 Critically low >=60 [facility] Comment on above: Performed By: #### B MP, ALT, AST, TSH, FT3, LIPID #### [facility] [address] [address] [address] Cole Echeverria Glucose [Mass/Vol] 91 mg/dL Normal 74-106 [facility] Comment on above: Performed By: #### B MP, ALT, AST, TSH, FT3, LIPID #### [facility] [address] [address] [address] Cole Echeverria Potassium [Moles/Vol] 4.7 mmol/L Normal 3.5-5.1 [facility] Comment on above: Performed By: #### B MP, ALT, AST, TSH, FT3, LIPID #### [facility] [address] [place] [address] Dr. Cole Echeverria Sodium [Moles/Vol] 141 mmol/L Normal 136-145 [facility] Comment on above: Performed By: #### B MP, ALT, AST, TSH, FT3, LIPID #### [facility] [address] [place] [address] Dr. Cole Echeverria Urea nitrogen [Mass/Vol] 35.0 mg/dL Critically high 7.0-18.0 [facility] Comment on above: Performed By: #### B MP, ALT, AST, TSH, FT3, LIPID #### [facility] [address] [place] [address] Dr. Cole Echeverria Urea nitrogen/Creatinine [Mass ratio] 25.9 mg/mg Normal [facility] Comment on above: Performed By: #### B MP, ALT, AST, TSH, FT3, LIPID #### [facility] [address] [place] [address] Dr. Cole Alanis 04-05-2022 AST [Catalytic activity/Vol] 31 U/L Normal 15-37 [facility] Comment on above: Performed By: #### T SH, FT3 #### [facility] [address] [place] [address] Dr. Cole CESARPTon 04-05-2022 ALT [Catalytic activity/Vol] 26 U/L Normal 16-63 [facility] Comment on above: Performed By: #### B MP, ALT, AST, TSH, FT3, LIPID #### [facility] [address] [place] [address] Dr. Cole Echeverria TSHon 04-05-2022 TSH 0.944 uIU/mL Normal 0.358-3.740 [facility] Comment on above: Performed By: #### B MP, ALT, AST, TSH, FT3, LIPID #### [facility] [address] [place] [address] Dr. Cole Echeverria TSH RANGE SEE BELOW Normal [facility] Comment on above: Result Comment: <0.3 4 UIU/ml HYPERTHYROID 0.34-5.60 UIU/ml EUTHYROID >5.60 UIU/ml HYPOTHYROID Performed By: #### B MP, ALT, AST, TSH, FT3, LIPID #### [facility] [address] [address] [address] Cole Echeverria US SCROTUMon 02-27-2022 US [...] ANETTE GAMBOA Date: 2022-02-27 08:15 Normal [facility] Vital Signs Date Time Vital Sign Value Performing Clinician Facility 01-17-2024 11:49-0400 Body height 180.3 cm Gumaro Treviño DO Work Phone: [facility] 01-17-2024 11:49-040 Body mass index (BMI) [Ratio] 51.33 kg/m2 Gumaro Treivño DO Work Phone: [facility] 01-17-2024 11:49-040 Body weight 166.92 kg Gumaro Treviño DO Work Phone: [facility] 01-17-2024 11:49-040 Diastolic blood pressure 86 mm[Hg] Gumaro Treviño DO Work Phone: [facility] 01-17-2024 11:49-0400 Heart rate 68 /min Gumaro Treviño DO Work Phone: [facility] 01-17-2024 11:49-0400 Systolic blood pressure 140 mm[Hg] Gumaro Treviño DO Work Phone: [facility] 12-06-2023 14:00-0500 Body height 180.34 cm Oscar Walters Other [employer] Other 12-06-2023 14:00-0500 Body mass index (BMI) [Ratio] 51.52 kg/m2 Oscar Sanzharitha Other [employer] Other 12-06-2023 14:00-0500 Body temperature 97.7 [degF] Oscar Selena Other [employer] Other 12-06-2023 14:00-0500 Body weight 167.56 kg Oscar Walters Other [employer] Other 12-06-2023 14:00-0500 Diastolic blood pressure 81 mm[Hg] Oscar Sanzharitha Other [employer] Other 12-06-2023 14:00-0500 Respiratory rate 20 /min Oscar Sanzharitha Other [employer] Other 12-06-2023 14:00-0500 SaO2% (BldA) [Mass fraction] 95 % Oscar Sanzharitha Other [employer] Other 12-06-2023 14:00-0500 Systolic blood pressure 136 mm[Hg] Oscar Selena Other [employer] Other 01-04-2023 11:33-0500 Body height 180.34 cm Jorge A Naderer Work Phone: [facility] DO Work Phone: 01-04-2023 11:33-0500 Body mass index (BMI) [Ratio] 49.51 kg/m2 Jorge A Naderer Work Phone: [facility] DO Work Phone: 01-04-2023 11:33-0500 Body surface area Derived from formula 2.69 m2 Jorge A Naderer Work Phone: [facility] DO Work Phone: 01-04-2023 11:33-0500 Body weight 161.03 kg Jorge A Naderer Work Phone: [facility] DO Work Phone: 01-04-2023 11:33-0500 Diastolic blood pressure 70 mm[Hg] Jorge A Naderer Work Phone: [facility] DO Work Phone: 01-04-2023 11:33-0500 Heart rate 64 /min Jorge A Naderer Work Phone: [facility] DO Work Phone: 01-04-2023 11:33-0500 Systolic blood pressure 136 mm[Hg] Jorge A Naderer Work Phone: [facility] DO Work Phone: 10-12-2022 14:00-0500 Body height 180.34 cm Oscar Walters Other [employer] Other 10-12-2022 14:00-0500 Body mass index (BMI) [Ratio] 49.67 kg/m2 Oscar Walters Other [employer] Other 10-12-2022 14:00-0500 Body temperature 96.3 [degF] Oscar Waltres Other [employer] Other 10-12-2022 14:00-0500 Body weight 161.57 kg Oscar Walters Other [employer] Other 10-12-2022 14:00-0500 Diastolic blood pressure 73 mm[Hg] Oscar Walters Other [employer] Other 10-12-2022 14:00-0500 Respiratory rate 20 /min Oscar Walters Other [employer] Other 10-12-2022 14:00-0500 SaO2% (BldA) [Mass fraction] 95 % Oscar Walters Other [employer] Other 10-12-2022 14:00-0500 Systolic blood pressure 126 mm[Hg] Oscar Walters Other [employer] Other 08-31-2022 17:40-0400 Body height 180.34 cm Oscar Walters Other [employer] Other 08-31-2022 17:40-0400 Body mass index (BMI) [Ratio] 48.98 kg/m2 Oscar Walters Other [employer] Other 08-31-2022 17:40-0400 Body temperature 96.4 [degF] Oscar Walters Other [employer] Other 08-31-2022 17:40-0400 Body weight 159.3 kg Oscar Walters Other [employer] Other 08-31-2022 17:40-0400 Diastolic blood pressure 82 mm[Hg] Oscar Walters Other [employer] Other 08-31-2022 17:40-0400 Respiratory rate 20 /min Oscar Walters Other [employer] Other 08-31-2022 17:40-0400 SaO2% (BldA) [Mass fraction] 97 % Oscar Walters Other [employer] Other 08-31-2022 17:40-0400 Systolic blood pressure 144 mm[Hg] Oscar Walters Other [employer] Other 07-12-2022 11:36-0400 Body height 180.34 cm Jorge Guerrero Naderer Work Phone: [employer] DO Work Phone: 07-12-2022 11:36-0400 Body mass index (BMI) [Ratio] 51.05 kg/m2 Jorge Masters Naderer Work Phone: [facility] [employer] [facility] DO Work Phone: 07-12-2022 11:36-0400 Body surface area Derived from formula 2.73 m2 Jorge Masters Naderer Work Phone: [employer] DO Work Phone: 07-12-2022 11:36-0400 Body weight 166.02 kg Jorge Masters Naderer Work Phone: [employer] DO Work Phone: 07-12-2022 11:36-0400 Diastolic blood pressure 70 mm[Hg] Jorge Masters Naderer Work Phone: [facility] DO Work Phone: 07-12-2022 11:36-0400 Heart rate 100 /min Jorge Masters Naderer Work Phone: [facility] DO Work Phone: 07-12-2022 11:36-0400 Systolic blood pressure 110 mm[Hg] Jorge Masters Naderer Work Phone: [facility] DO Work Phone: 06-22-2022 00:00-0400 65 1 Jorge A Naderer Work Phone: [facility] DO Work Phone: Comment on above: [id number] Encounters Encounter Date Encounter Type Care Provider Facility Start: 06-02-2024 End: 06-02-2024 ambulatory MARIE SALCEDO Not Available Start: 05-27-2024 End: 05-27-2024 ambulatory JORGE NADERER Not Available Start: 02-25-2024 End: 02-25-2024 ambulatory JORGE NADERER Not Available Start: 01-17-2024 End: 01-17-2024 ambulatory [facility] Start: 01-17-2024 End: 01-17-2024 Office outpatient visit 15 minutes [facility] DO Work Phone: [facility] Comment on above: Deep vein thrombosis (DVT) of distal vein of lower extremity, unspecified chronicity, unspecified laterality ([facility]); Pulmonary embolism, unspecified chronicity, unspecified pulmonary embolism type, unspecified whether acute cor pulmonale present ([facility]); Essential hypertension; BMI 50.0-59.9, adult (CMS/HCC); Chronic kidney disease, unspecified CKD stage; Former smoker Start: 01-09-2024 End: 01-09-2024 ambulatory MARIE SALCEDO Not Available Start: 12-12-2023 End: 12-12-2023 ambulatory MARIE SALCEDO Not Available Start: 12-12-2023 Chart abstracting Jr. Marie Palmer DO Work Phone: [facility] Start: 12-12-2023 End: 12-12-2023 Office outpatient visit 15 minutes Jr. Marie Palmer DO Work Phone: [facility] Comment on above: Acquired trigger fin yesica of right little finger (Primary Dx) Start: 12-06-2023 End: 12-06-2023 ambulatory Oscar Sanzharitha Other [employer] Other Start: 12-06-2023 Office outpatient visit 15 minutes Oscar Selena [facility] Start: 11-26-2023 End: 11-26-2023 ambulatory JORGE CAMEJO Not Available Start: 11-14-2023 End: 11-14-2023 ambulatory MARIE SALCEDO Not Available Start: 10-03-2023 End: 10-03-2023 ambulatory MARIE SALCEDO Not Available Start: 05-03-2023 ambulatory NARSHIRA LAKSHMIPATHY . Facility:[facility] Start: 01-25-2023 End: 01-26-[address] JORGE CAMEJO Facility:[facility] Start: 01-04-2023 Office outpatient visit 25 minutes Jorge Camejo Work Phone: [facility] DO Work Phone: Start: 01-04-2023 ambulatory Gumaro Treviño Facilit y: Start: 12-07-2022 End: 12-08-[address] JORGE CAMEJO Facility:[facility] Start: 12-04-2022 End: 12-04-2022 ambulatory Oscar Walters Other [employer] Other Start: 12-04-2022 Telephone encounter Oscar Sanzharitha [facility] Start: 10-12-2022 End: 10-12-2022 ambulatory Oscar Sanzharitha Other [employer] Other Start: 10-12-2022 Office outpatient visit 25 minutes Oscar Sanzharitha [facility] Start: 10-03-2022 End: 10-04-[address] JORGE CAMEJO Facility:[facility] Start: 09-14-2022 End: 09-15-[address] JORGE CAMEJO Facility:[facility] Start: 09-04-2022 End: 09-04-2022 ambulatory Oscar Walters Other [facility] [employer] Other Start: 09-04-2022 Telephone encounter Oscar Walters [facility] Start: 08-31-2022 End: 08-31-2022 ambulatory Oscar Walters Other [facility] [employer] Other Start: 08-31-2022 Office outpatient visit 25 minutes Oscar Walters [facility] Start: 07-12-2022 End: 07-13-[address] GUMARO TREVIÑO Facility:[facility] Start: 07-12-2022 Office outpatient visit 40 minutes Jorge Camejo Work Phone: [facility] DO Work Phone: Start: 07-12-2022 ambulatory Gumaro Treviño Facilit y:[id number] Start: 06-24-2022 ambulatory Gumaro Treviño Facilit y:[id number] Start: 06-23-2022 ambulatory Gumaro Treviño Facilit y:[facility] Start: 06-23-2022 ambulatory Gumaro Treviño Facilit y:[id number] Start: 06-23-[address] Jorge Camejo Facility:[id number] Start: 06-23-2022 End: 06-24-2022 Evaluation and management of inpatient Patel Ugarte Facility:[facility] Start: 06-22-2022 End: 06-22-[address] LISA DUDLEY Facility:[facility] Start: 06-15-2022 End: 06-16-[address] HUNTER MCLEAN . Facility:[facility] Start: 04-05-2022 End: 04-06-[address] JORGE CAMEJO Facility:[facility] Start: 03-30-2022 End: 03-31-[address] HUNTER MCLEAN . Facility:[facility] Start: 02-24-2022 End: 02-25-[address] JORGE CAMEJO Facility: Start: 02-16-2022 End: 02-17-[address] HUNTER MCLEAN . Facility:[facility] Start: 07-25-2018 End: 07-26-2018 Patient encounter DEFAULT PHYSICIAN Facility:[facility] Procedures Date Procedure Procedure Detail Performing Clinician Start: 12-12-2023 Injection 1 tendon sheath/ligament aponeurosis Jr. Marie Palmer DO Work Phone: Start: 04-05-[address] JORGE HILTON Comment on above: Performed By: #### F T4, PSASC #### [facility] [address] [place] [address] Dr. Cloe Echeverria Arthroscopy of knee Jorge hilton Work Phone: Colonoscopy Jorge Camejo Work Phone: Removal of thrombus Jorge hilton Work Phone: Plan of Treatment Date Care Activity Detail Author Start: 02-25-2024 End: 02-25-2024 Patient encounter procedure 02/25/2024 1:00 PM EDT Office Visit [facility] [address] [place] [phone] Jorge Camejo MD [address] [place] [id number] [facility] Start: 01-17-2024 FUV, Provider: Gumaro Treviño, Status: Pen, Time: 11:20 AM FUV, Provider: Gumaro Treviño, Status: Pen, Time: 11:20 AM [facility] DO Work Phone: Start: 01-09-2024 End: 01-09-2024 Patient encounter procedure 01/09/2024 2:00 PM EST Office Visit [facility] [address] [place] [id number] Jr. Marie Palmer, DO [address] [place], [place] [id number] [facility] Start: 12-12-2023 End: 12-12-2023 Patient encounter procedure 12/12/2023 2:00 PM EST Office Visit [facility] [address] [place] [phone] Jr. Marie Palmer, DO [address] [facility] [address] [place] [address] [facility] Start: 07-06-2023 COVID-19 Vaccine ( season) COVID-19 Vaccine ( season) [facility] Start: 01-11-2023 FUV, Provider: Gumaro Treviño, Status: Pen, Time: 11:10 AM FUV, Provider: Gumaro Treviño, Status: Pen, Time: 11:10 AM [facility] [employer] 250 DO Work Phone: Start: 08-05-2016 Pneumococcal Vaccine: 65+ Years (2 - PCV) Pneumococcal Vaccine: 65+ Years (2 - PCV) [facility] Start: 1996 Zoster Vaccines (1 of 2) Zoster Vaccines (1 of 2) [facility] Start: 1968 DTaP/Tdap/Td Vaccines (1 - Tdap) DTaP/Tdap/Td Vaccines (1 - Tdap) [facility] Start: 1964 Diabetes mellitus screening Diabetes Screening [facility] Start: 1964 Hepatitis C screening Hepatitis C Screening [facility] Start: 1946 Lipid panel Lipid Panel [facility] Start: 1946 Medicare Annual Wellness (AWV) Medicare Annual Wellness (AWV) [facility] Start: 1946 Medicare Annual Wellness Visit Medicare Annual Wellness Visit (AWV) [facility] Start: 1946 Thyroid stimulating hormone measurement TSH Level [facility] Immunizations Immunization Date Immunization Notes Care Provider Fa david 10-01-2022 Fluad Quadrivalent 0 .5 ML Intramuscular Prefilled Syringe Jorge Camejo Work Phone: [facility] 250 DO Work Phone: 10-19-2021 Pfizer-BioNTech COVI D-19 Vacc 30 MCG/0.3ML Intramuscular Suspension Jorge Masters Naderer Work Phone: [facility] 07-06-2021 influenza, seasonal, injectable Jorge Masters Naderer Work Phone: [facility] 250 DO Work Phone: Comment on above: Series: 01-11-2021 Moderna COVID-19 Vac cine 100 MCG/0.5ML Intramuscular Suspension Jorge Masters Naderer Work Phone: [facility] 250 DO Work Phone: 12-14-2020 Moderna COVID-19 Vac cine 100 MCG/0.5ML Intramuscular Suspension Jorge Masters Naderer Work Phone: [facility] 250 DO Work Phone: 08-05-2015 pneumococcal polysaccharide vaccine, 23 valent Jorge Coatsr Work Phone: [facility] Payers Date Payer Category Payer Unknown 2022 Self-pay 2011 Medicare [id number] 1959 Medicare [id number] 2.1 [id number] 1959 Medicare [id number] 1959 Unknown [id number] 2. 16.840.1.666636.19 1946 Unknown [id number] 2.16. 840.1.756238.3.579.2.356 1946 Unknown [id number] 2.16. 840.1.966356.3.579.2.356 1946 Unknown [id number] 2.16. 840.1.715959.3.579.2.356 1946 Unknown [id number] 2.16. 840.1.040125.3.579.2.356 1946 Unknown [id number] 2.16. 840.1.012927.3.579.2.356 1946 Unknown [id number] 2.16.84 0.1.877768.3.579.2.593 1946 Unknown [id number] 2.16.84 0.1.299520.3.579.2.593 1946 Unknown [id number] 2.16.84 0.1.696016.3.579.2.593 1946 Unknown [id number] 2.16.84 0.1.641995.3.579.2.593 1946 Unknown [id number] 2.16.84 0.1.192875.3.579.2.593 1946 Unknown [id number] 2.16.84 0.1.985638.3.579.2.593 1946 Unknown [id number] 2.16.84 0.1.698688.3.579.2.593 1946 Unknown [id number] 2.16.84 0.1.764718.3.579.2.593 1946 Unknown [id number] 2.16.84 0.1.410681.3.579.2.593 1946 Unknown [id number] 2.16.84 0.1.640249.3.579.2.593 1946 Unknown [id number] 2.16.84 0.1.304752.3.579.2.593 1946 Unknown [id number] 2.16.84 0.1.758246.3.579.2.593 1946 Unknown [id number] 2.16.8 40.1.641566.3.579.2.1244 1946 Unknown [id number] 2.16.84 0.1.026800.3.579.2.1259 1946 Unknown [id number] 2.16.84 0.1.011828.3.579.2.1259 1946 Unknown [id number] 2.16.84 0.1.505818.3.579.2.1259 1946 Unknown [id number] 2.16.84 0.1.556753.3.579.2.1259 1946 Unknown [id number] 2.16.84 0.1.174865.3.579.2.1259 1946 Unknown [id number] 2.16.84 0.1.149275.3.579.2.1259 1946 Unknown [id number] 2.16.84 0.1.448318.3.579.2.9 1946 Unknown [id number] 2.16.840 .1.730371.3.579.2.1259 Unknown [id number] 2.16.8 40.1.231351.3.579.2.531 Social History Date Type Detail Facility Start: 11-20-2023 End: 01-17-2024 No alcohol use No alcohol use [facility] Start: 11-19-2023 End: 01-17-2024 Sex Assigned At [facility] Start: 11-20-2023 End: 01-17-2024 Tobacco smoking status [facility] Ex-smoker [facility] End: 11-05-1989 History of tobacco use Current smoker [facility] End: 11-05-1989 History of tobacco use Cigarette Smoker [facility] Start: 11-20-2023 End: 01-17-2024 Tobacco use and exposure Smokeless tobacco non-user [facility] Within the last year , have you been afraid of your partner or ex-partner? No [facility] Do you belong to any clubs or organizations such as mandaen groups, unions, fraternal or athletic groups, or school groups? Yes [facility] Are you now , , , , never or living with a partner? [facility] How often to you hav e a drink containing alcohol? Monthly or less [facility] How many standard dr inks containing alcohol do you have on a typical day? 1 or 2 [facility] How often do you hav e 6 or more drinks on 1 occasion? Never [facility] How hard is it for y ou to pay for the very basics like food, housing, medical care, and heating Not hard at all [facility] Do you feel stress - tense, restless, nervous, or anxious, or unable to sleep at night because your mind is troubled all the time - these days [OSQ] Only a little [facility] (I/We) worried wheth er (my/our) food would run out before (I/we) got money to buy more. Never true [facility] Start: 1945 Sex Assigned At Not on file [facility] Start: 01-17-2024 Alcohol intake Lifetime non-drinker (finding) [facility] Work Phone: Start: 01-07-2024 End: 01-17-2024 Exposure to SARS-CoV-2 (event) Not sure [facility] NEGATED: Highlighted row Denies Caffeine use Denies Caffeine use -[facility] 250 DO Work Phone: Clinical Notes 02-16-2022 to 01-17-2024 Gumaro Treviño, DO - 01/17/2024 11:20 AM EDTPatient InstructionsJr. Marie Palmer, DO - 12/12/2023 2:00 PM EST Note Date & Type Note Facility 01-17-2024 History of Present illness Narrative Wong Cabral is a 78 y.o. male Chief Complaint Annual Exam 78-year-old gentleman returns for follow-up he is doing well he denies any cardiovascular events, recurrent thromboembolic or bleeding disorders or events. He had DVT associated with COVID illness in June 2022 with suspected PE but never physically documented by CT imaging due to chronic kidney disease. He has underlying hypertension and morbid obesity, he ambulates with rollator chair due to balance. He has been on Xarelto for the past 20 months. This was his first episode of DVT/possible PE with no previous history or family history of precocious or inherited thrombophilia. Recommendations, he can discontinue Xarelto, will follow-up as needed. Review of Systems All other systems reviewed and are negative. Vitals: 01/17/24 1149 BP: 140/86 BP Location: Right arm Patient Position: Sitting Pulse: 68 Weight: (!) 167 kg (368 lb) Height: 1.803 m (5' 11 ) Objective Physical Exam Constitutional: Appearance: Normal appearance. HENT: Nose: Nose normal. Neck: Vascular: No carotid bruit. Cardiovascular: Rate and Rhythm: Normal rate. Pulses: Normal pulses. Heart sounds: Normal heart sounds. Pulmonary: Effort: Pulmonary effort is normal. Abdominal: General: Bowel sounds are normal. Palpations: Abdomen is soft. Musculoskeletal: General: Normal range of motion. Cervical back: Normal range of motion. Right lower leg: No edema. Left lower leg: No edema. Skin: General: Skin is warm and dry. Neurological: General: No focal deficit present. Mental Status: He is alert. Psychiatric: Mood and Affect: Mood normal. Behavior: Behavior normal. Thought Content: Thought content normal. Judgment: Judgment normal. Allergies Patient has no known allergies. Current Medications Current Outpatient Medications: albuterol 90 mcg/actuation inhaler, Inhale 2 puffs every 4 hours if needed for wheezing., Disp: , Rfl: furosemide (Lasix) 40 mg tablet, Take 1 tablet (40 mg) by mouth once daily., Disp: , Rfl: levothyroxine (Synthroid) 150 mcg tablet, Take 1 tablet (150 mcg) by mouth once daily., Disp: , Rfl: pregabalin (Lyrica) 75 mg capsule, Take 1 capsule (75 mg) by mouth 2 times a day., Disp: , Rfl: spironolactone (Aldactone) 25 mg tablet, Take 1 tablet (25 mg) by mouth once daily., Disp: , Rfl: traMADol (Ultram) 50 mg tablet, Take 2 tablets (100 mg) by mouth 2 times a day., Disp: , Rfl: Assessment/Plan 1. Deep vein thrombosis (DVT) of distal vein of lower extremity, unspecified chronicity, unspecified laterality (CMS/HCC) 2. Pulmonary embolism, unspecified chronicity, unspecified pulmonary embolism type, unspecified whether acute cor pulmonale present (CMS/HCC) 3. Essential hypertension 4. BMI 50.0-59.9, adult (CMS/HCC) 5. Chronic kidney disease, unspecified CKD stage 6. Former smoker Scribe Attestation By signing my name below, I, Nano Dalton LPN attest that this documentation has been prepared under the direction and in the presence of Gumaro Treviño DO. Provider Attestation - Scribe documentation All medical record entries made by the Scribe were at my direction and personally dictated by me. I have reviewed the chart and agree that the record accurately reflects my personal performance of the history, physical exam, discussion and plan. documented in this encounter [facility] Work Phone: 01-17-2024 Instructions Krystle Husain LPN - 01/17/2024 11:20 AM EDT Please bring all medicines, vitamins, and herbal supplements with you when you come to the office. Prescriptions will not be filled unless you are compliant with your follow up appointments or have a follow up appointment scheduled as per instruction of your physician. Refills should be requested at the time of your visit. Follow up as needed.Current weight: (!) 167 kg (368 lb) Weight change since last visit (-) denotes wt loss 13 lbs Weight loss needed to achieve BMI 25: 189.1 Lbs Weight loss needed to achieve BMI 30: 153.4 Lbs documented in this encounter [facility] Work Phone: 12-12-2023 History of Present illness Narrative Associated Order(s): Hand / UE Inj/Asp: R small A1 Post-Procedure Diagnose(s): Acquired trigger finger of right little finger Images from the original note were not included. HISTORY OF PRESENT ILLNESS: EST PT Rafael Cabral is an 78 y.o. @ male. (EST PT) RECHECK (L) KNEE - S/P LT KNEE GEL ONE INJ 11/14/23; NOTES SOME RELIEF- SYMPTOMS LESS SEVERE - RECHECK RT LF LOCKING- POSSIBLY INJ FINGER TODAY PE 06/2022; CURRENTLY ON XARELTO XRAYS LT KNEE 04/27/21 IN EXA NO MRI S/P MDP 09/25/18 S/P CORTISONE INJ 07/02/19, 05/11/17, 07/27/21, 07/11/23 S/P GEL-ONE INJ 04/27/21, 11/09/21, 05/24/22, 12/13/22, 11/14/23 S/P SYNVISC-ONE 08/07/18 NO PHYSICAL THERAPY PAIN MGMT DR MCLEAN HX LEFT KNEE SCOPE YEARS AGO - DR. PALMER USES WALKER TO AMBULATE- PAIN MEDIAL KNEE- MINIMAL SWELLING- +TRAMADOL Rt little finger: EST PT RECHECK RT LF LOCKING - NOTES SYMPTOMS ~2MO- NO KNOWN INJURY- NOTES PAIN- POSSIBLY INJ RT LF TODAY ALLERGIES: No Known Allergies HOME MEDICATIONS: Current Outpatient Medications Medication Instructions furosemide (LASIX) 40 mg, Oral, Daily levothyroxine (SYNTHROID, LEVOXYL) 150 mcg, Oral, Daily before breakfast mupirocin (Bactroban) 2 % ointment APPLY TO AFFECTED AREA 3 TIMES A DAY pregabalin (LYRICA) 75 mg, Oral, 2 times daily rivaroxaban (Xarelto) 20 MG tablet Xarelto spironolactone (ALDACTONE) 25 mg, 2 times daily traMADol (Ultram) 50 MG tablet TAKE 2 TABLET BY MOUTH TWICE A DAY NEEDED PHYSICAL EXAM: Hand/Wrist Musculoskeletal Exam Inspection Right Right hand/wrist inspection is normal. Erythema: none Ecchymosis: none Edema: none Deformity: none Hand - prior incision: none Wrist - prior incision: none Palpation Right Triggering: small Small tenderness to palpation: A1 fredrick Range of Motion Right Hand Right hand range of motion is normal. Range of motion additional comments: Full range of motion to right little finger, but triggering at the extremes of flexion and extension Strength Strength additional comments: Normal strength, right wrist and right hand Neurovascular Right Right neurovascular exam is normal. Special Tests Right Right special tests are normal. General Constitutional: appears stated age Neurological: alert and oriented x3 Skin: intact Vitals: There is no height or weight on file to calculate BMI. Tobacco Use: Medium Risk (12/12/2023) Patient History Smoking Tobacco Use: Former Smokeless Tobacco Use: Never Passive Exposure: Not on file Alcohol Use: Not At Risk (11/19/2023) AUDIT-C Frequency of Alcohol Consumption: Monthly or less Average Number of Drinks: 1 or 2 Frequency of Binge Drinking: Never IMAGING: Hand / UE Inj/Asp: R small A1 for trigger finger on 12/12/2023 2:32 PM Indications: tendon swelling Details: 22 G needle, volar approach Medications: 20 mg methylPREDNISolone acetate 40 MG/ML Outcome: tolerated well, no immediate complications Site cleaned with isopropyl alcohol prior to injection Right upper extremity showed no acute neurovascular changes prior to and following injection. Procedure, treatment alternatives, risks and benefits explained, specific risks discussed. Orders Placed This Encounter Procedures Hand / UE Inj/Asp This order was created via procedure documentation ASSESSMENT: ICD-10-CM 1. Acquired trigger finger of right little finger M65.351 PLAN: We have discussed his case with him at length including injecting his finger versus surgical intervention for her triggering of the right little finger. The risks and benefits were discussed in language patient could understand. The patient requested an injection in his right little finger A1 fredrick and we'll perform this under sterile technique without incident. We have discussed his restrictions and home exercise program. I will see him back in 1 month. If his symptoms persist or worsen, we may discuss surgical intervention. Patient is on Xarelto. Questions answered in laymen terms at the bedside. The diagnosis, home exercise plan and any ongoing restrictions/ recommendations reviewed. If unable to be reached in office, I recommend evaluation at nearest Emergency Room if any symptoms worsened or new symptoms develop for requiring urgent evaluation. Marie Palmer Jr., DO documented in this encounter [facility] 12-06-2023 Evaluation note Encounter Date Diagnosis Assessment Notes Dec, Hypertensive chronic kidney disease w stg 1-4/unsp chr kdny (ICD-10 - I12.9) Blood pressure is well-controlled on furosemide and spironolactone. He continues to have edema in the setting of DVTs and obstructive sleep apnea. Creatinine slightly up after increase spironolactone. Lisinopril was stopped, he has no proteinuria. Continue salt restriction. Will increase diuretics if indicated. Dec, Chronic kidney disease, stage 3b (ICD-10 - N18.32) Patient has very minimal CKD stage II/stage III with intermittent MANISH. Renal function is variable between 1.1-1.4 mg/dL according to the volume status and blood pressure. Patient has no proteinuria with urine analysis, was reported less than 6 mg/g of creatinine. He is off lisinopril because of low blood pressure and to allow for more diuretics. Monitor renal function every 6 months to adjust medication as indicated. Dec, CHF (congestive heart failure) (ICD-10 - I50.9) Patient has right-sided heart failure in the setting of HEENA and recent PE with pulmonary hypertension. Importance of salt restriction has been addressed. Continue diuretics. Dec, DVT (deep venous thrombosis) (ICD-10 - I82.409) Patient developed DVT while he is traveling and after episode of COVID 19 currently on Xarelto. Dec, PE (pulmonary embolism) (ICD-10 - I26.99) Patient presented with chest pain on June 2022 and he was found to have DVTs and high probability PE on VQ scan. He did refuse intervention with CTA or thrombectomy concerning the MANISH and risk of dialysis as he stated that one of his relatives has been on dialysis after contrast. Patient will be treated conservatively with Xarelto. Shortness of breath has improved. [employer] Other 03-23-2023 NoteCONSULTATION CONSULTATION DATE: 01/25/2023 TO: Dr. Camejo HISTORY: [...] undergoes this imaging study or sooner if needed.[facility] [id number] Evaluation note* Encounter Date Diagnosis Assessment Notes Treatment Notes Treatment Clinical Notes Oct, MANISH (acute kidney injury) (ICD-10 [...] provoked by travel, COVID 19 and immobility. [employer] Other 11-10-2022 NoteCONSULTATION CONSULTATION DATE: 09/14/2022 HISTORY OF PRESENT ILLNESS: [...] otherwise indicated, and patient agrees with this plan.[facility] [id number] Evaluation note* Encounter Date Diagnosis Assessment Notes Treatment Notes Treatment Clinical Notes Aug, MANISH (acute kidney injury) (ICD-10 [...] pulmonary if shortness of breath is worse. [employer] Other 08-11-2022 NoteCONSULTATION CONSULTATION DATE: 06/15/2022 HISTORY OF PRESENT ILLNESS: [...] heel. 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 Current medications include [...] follow him up in the clinic post procedure.[facility] [id number] NoteCONSULTATION CONSULTATION DATE: 03/30/2022 HISTORY OF PRESENT ILLNESS: [...] in three months' time unless otherwise indicated. [facility] Signed and Approved by: DOMO SANCHEZ . 04/06/2022 16:04:00[facility]04-14-2022 NoteCONSULTATION PAIN MANAGEMENT CONSULTATION HISTORY OF PRESENT ILLNESS: [...] of care and all questions were answered. [facility] Signed and Approved by: DOMO SANCHEZ . 02/23/2022 13:58:00[facility] HospitalEvaluation noteNo InformationNortConemaugh [facility] [employer] Other Evaluation note* Diagnosis Acquired trigger finger of right little finger- Primary documented in this encounter [facility] HealthcareEvaluation note* Diagnosis Deep vein thrombosis (DVT) of distal vein of lower extremity, unspecified chronicity, unspecified laterality (CMS/HCC) Pulmonary embolism, unspecified chronicity, unspecified pulmonary embolism type, unspecified whether acute cor pulmonale present ([facility]) Essential hypertension Unspecified essential hypertension BMI 50.0-59.9, adult ([facility]) Chronic kidney disease, unspecified CKD stage Former smoker Personal history of tobacco use, presenting hazards to health documented in this encounter [facility] Work Phone: History general Narrative - Reported* Type Description Date Medical History ACUTE KIDNEY INJURY Medical History CHF (CONGESTIVE HEART FAILURE) Medical History PULMONARY EMBOLISM ASSOCIATED WI TH COVID 19 Medical History DVT (DEEP VENOUS THROMBOSIS) Surgical History KNEE SURGERY LEFT Surgical History KNEE SURGERY RIGHT Hospitalization History ACUTE KIDNEY INJ URY, CHF, PULMONARY EMBOLISM ASSOCIATED WITH COVID 19 06/22/2022 [facility] [employer] Other Summary Purpose Family History No Family [...] Records Found Chief Complaint * 07/05/2022 [facility] [place] SP EKOS. * RAFAEL CABRAL is being seen for follow-up of [...] to tim ssess for thrombus burden. * RAFAEL CABRAL is being seen for a 6 [...] He can otherwise follow-up in 1 year Reason for Referral Specialty Diagnoses / Procedures Referred By Contac t Referred To Contact Orthopaedic Surgery Diagnoses Acquired trigger finger of right little finger Procedures Hand / UE Inj/Asp: R Jr. Marie Alonso, DO [address] [facility] [address] [place] [address] Referral ID Status Reason Start Date Expiration Date V isits Requested Visits Authorized [id number] Pending Review 12/12/2023 06/09/2024 1 1 Additional Source Comments (unrecognized sect ion and content) No Status Records FoundNo Status Records FoundNo Status Records FoundNo Status Records FoundNo Status Records FoundNo Status Records FoundNo Status Records Found INFORMATION SOURCE (unrecogn ized section and content) DATE CREATED AUTHOR 08/22/2018 [facility] DATE CREATED AUTHOR AUTHOR'S ORGANIZ ATION 12/09/2022 [facility] DATE CREATED AUTHOR AUTHOR'S ORGANIZ ATION 01/05/2023 [facility] DATE CREATED AUTHOR AUTHOR'S ORGANIZ ATION 01/06/2023 [employer] DATE CREATED AUTHOR AUTHOR'S ORGANIZ ATION 01/28/2023 [facility] DATE CREATED AUTHOR AUTHOR'S ORGANIZ ATION 01/18/2024 [facility] DATE CREATED AUTHOR AUTHOR'S ORGANIZ ATION 06/04/2024 [facility] dical Specialists EPIC REASON FOR VISIT (unrecogniz ed section and content) Reason Comments Pain Reason Comments Annual Exam 1yr Care Teams (unrecognized sec tion and content) Qa Reviewer Relationship Specialty Start Date End Date Jorge Camejo MD [address] [place] [address] PCP - General Family Medicine 12/06/23 Qa Reviewer Relationship Specialty Start Date End Date Jorge Camejo MD [address] [place] [address] PCP - General Family Medicine 12/06/23 Qa Reviewer Relationship Specialty Start Date End Date Jorge Camejo MD [address] [place] [address] PCP - General Family Medicine 01/17/24 FOR RECORDS PERTAINING TO PATIENTS WHO ARE [...] BE BASED ON THE PRIMARY CLINICAL RECORDS. [facility] [employer] [facility]. provides no warranty or guarantee of the accuracy or completeness of information in this document.
[2024-06-05 16:45] LABS: Anion Gap 14.1; BUN Creatinine Ratio 17.9; Calcium 9.3 mg/dL (8.5-10.1); Carbon Dioxide 27.4 mmol/L (21.0-32.0); Chloride 99 mmol/L (98-107); Estimated GFR (African America 60 (>=60); Estimated GFR (Non-African Ame 49 (>=60); Glucose 114 mg/dL (74-106); Phosphorus 2.6 mg/dL (2.6-4.7); Potassium 4.5 mmol/L (3.5-5.1); Sodium 136 mmol/L (136-145)
[2024-06-08 12:08] LABS: PTH, Intact 37 pg/mL (15-65)
== END 2024-06-05 15:32 | disposition home or self-care (01) ==
LOC: LAB 15:33
PROVIDERS: PCP Family Medicine; Visit Provider Internal Medicine Nephrology
DX: N18.32 Chronic kidney disease, stage 3b (principal)
CPT/HCPCS: 36415; 80048; 83970; 84100; 85027

== ENCOUNTER 2024-06-09 15:50 | Outpatient (OUT) | payer MEDICARE, OTHER, SELFPAY | END 2024-06-09 15:51 | disposition home or self-care (01) | LOC: WC 15:50 | PROVIDERS: PCP Family Medicine; Visit Provider Physician Assistant | DX: I87.312 Chronic venous hypertension (idiopathic) with ulcer of left lower extremity (principal); L97.822 Non-pressure chronic ulcer of other part of left lower leg with fat layer exposed | CPT/HCPCS: G0463 ==

== ENCOUNTER 2024-07-01 15:18 | Outpatient (OUT) | payer MEDICARE, OTHER, SELFPAY | END 2024-07-01 15:19 | disposition home or self-care (01) | LOC: WC 15:19 | PROVIDERS: PCP Family Medicine; Visit Provider Physician Assistant | DX: I87.312 Chronic venous hypertension (idiopathic) with ulcer of left lower extremity (principal); L97.822 Non-pressure chronic ulcer of other part of left lower leg with fat layer exposed | CPT/HCPCS: G0463 ==

== ENCOUNTER 2024-07-24 12:58 | Outpatient (OUT) | payer MEDICARE, OTHER, SELFPAY ==
--- OUTSIDE RECORDS SUMMARY | 2024-07-24 13:13 | XMS_ITS | CCD ---
Author Organization [facility] Care Team Providers Care Director Customer Name Role Phone PHYSICIAN, DEFAULT Unavailable Unavailable [...] Unavailable NADERER, DR JORGE Masters Attending Unavailable HENRICO, DR ANETTE Torrez [employer] Unavailable NADERER, DR [...] DR JORGE Masters Attending Unavailable NADERER, DR JOGRE Masters Admitting Unavailable REINECK, DR LISA Badillo [...] Unavailable Jorge Camejo MD Primary Care Provider [phone] Jorge Camejo MD Primary Care Provider GUMARO [...] Drug Class(es) Dates Sig (Normalized) Sig (Original) [id number] 200 actuat albuterol 0.09 mg/actuat metered dose [...] (2 sources) Patient encounter status; Translations: [Other intermission coordinator (current) drug therapy] Onset: 11-26-2023 11-26-2023 Episodic [...] Translations: [Body mass index (BMI) 50.0-59.9, adult ([facility])] Onset: 01-17-2024 Chronic Other screening for suspected [...] Onset: 10-03-2022 Other aftercare (1 source) Other intermission coordinator (current) drug therapy; Translations: [OTH NEON SIGN ERECTOR CURRENT DRUG THERAPY] Onset: 06-26-2022 Episodic Other [...] risks and benefits explained, specific risks discussed. [facility] Office Visit (Cardiology)on 01-04-2023 Follow-up visit [...] Recorded: 04Jan2023 11:33AM Heart Rate64, L Radial Yeheqted276, LUE, Sitting Ednzuganx26, LUE, Sitting Height5 ft 11 in Crgmlq379 lb BMI Vwzafljojb01.51 kg/m2 BSA Calculated2.69 Tobacco Useb) No PHQ-2 [...] Jan 04 2023 12:41PM EST (Author) Normal [employer] Tobacco Screening.on 023 Adult depression screening assessment No [facility] 250 DO Work Phone: Fall risk assessment a) No falls within the last year [facility] 250 DO Work Phone: Tobacco use status CP b) No [facility] 250 DO Work Phone: FREE T3on 12-07-2022 FREE T3 2.63 pg/mlL Normal 2.18-3.98 [facility] Comment on above: Performed By: #### T , FT3 #### [facility] [address] [place] [address] Dr. Cole Echeverria FREE T4on 12-07-2022 Free T4 [Mass/Vol] 1.44 ng/dL Normal 0.76-1.46 [facility] Comment on above: Performed By: #### T SH, FT3 #### [facility] [address] [place] [address] Dr. Cole Echeverria HEMOGLOBINon 12-07-2022 Hemoglobin (Bld) [Mass/Vol] 14.0 g/dL Normal 14.0-18.0 [facility] Comment on above: Performed By: #### F T4, PSASC #### [facility] [address] [place] [address] Dr. Cole Echeverria TSHon 12-07-2022 TSH 0.710 uIU/mL Normal 0.358-3.740 [facility] Comment on above: Performed By: #### T SH, FT3 #### [facility] [address] [place] [address] Dr. Cole Echeverria PTH INTACTon 10-04-2022 PTH, Intact 13 pg/mL Critically low 15-65 [facility] Comment on above: Performed By: #### P THINT #### [facility] [address] [place] [address] Dr. Cole Echeverria HEMOGRAM AND PLATELon 2021 Hematocrit (Bld) [Volume fraction] 44.9 % Normal 42.0-54.0 [facility] Comment on above: Performed By: #### F T4, PSASC #### [facility] [address] [place] [address] Dr. Cole Echeverria Hemoglobin (Bld) [Mass/Vol] 14.4 g/dL Normal 14.0-18.0 [facility] Comment on above: Performed By: #### F T4, PSASC #### [facility] [address] [place] [address] Dr. Cole Echeverria MCH (RBC) [Entitic mass] 27.0 pg Normal 25.9-34.0 [facility] Comment on above: Performed By: #### F T4, PSASC #### [facility] [address] [place] [address] Dr. Cole Echeverria MCHC (RBC) [Mass/Vol] 32.1 g/dL Normal 29.9-35.2 [facility] Comment on above: Performed By: #### F T4, PSASC #### [facility] [address] [place] [address] Dr. Cole Echeverria MCV (RBC) [Entitic vol] 84.1 fL Normal 80.0-94.0 [facility] Comment on above: Performed By: #### F T4, PSASC #### [facility] [address] [place] [address] Dr. Cole Echeverria PLT 330 103/ul Normal 150-450 [facility] Comment on above: Performed By: #### F T4, PSASC #### [facility] [address] [place] [address] Dr. Cole Echeverria RBC 5.34 106/ul Normal 4.70-6.10 [facility] Comment on above: Performed By: #### F T4, PSASC #### [facility] [address] [place] [address] Dr. Cole Echeverria WBC 8.7 103/ul Normal 4.0-11.0 [facility] Comment on above: Performed By: #### F T4, PSASC #### [facility] [address] [place] [address] Dr. Cole Echeverria PHOSPHORUSon 10-03-2022 Phosphate [Mass/Vol] 3.8 mg/dL Normal 2.6-4.7 [facility] Comment on above: Performed By: #### T SH, FT3 #### [facility] [address] [place] [address] Dr. Cole Echeverria PROF 14(COMP METB)on 022 Albumin [Mass/Vol] 3.1 g/dL Critically low 3.4-5.0 [facility] Comment on above: Performed By: #### T SH, FT3 #### [facility] [address] [place] [address] Dr. Cole Echeverria Albumin/Globulin [Mass ratio] 0.6 {ratio} Normal [facility] Comment on above: Performed By: #### T SH, FT3 #### [facility] [address] [place] [address] Dr. Cole Echeverria ALP [Catalytic activity/Vol] 94 U/L Normal 46-116 [facility] Comment on above: Performed By: #### T SH, FT3 #### [facility] [address] [place] [address] Dr. Cole Echeverria ALT [Catalytic activity/Vol] 11 U/L Critically low 16-63 [facility] Comment on above: Performed By: #### T SH, FT3 #### [facility] [address] [place] [address] Dr. Cole Echeverria Anion gap [Moles/Vol] 9.3 mmol/L Normal [facility] Comment on above: Performed By: #### T SH, FT3 #### [facility] [address] [place] [address] Dr. Cole Echeverria AST [Catalytic activity/Vol] 13 U/L Critically low 15-37 [facility] Comment on above: Performed By: #### T SH, FT3 #### [facility] [address] [place] [address] Dr. Cole Echeverria Bilirubin [Mass/Vol] 0.5 mg/dL Normal 0.2-1.0 [facility] Comment on above: Performed By: #### T SH, FT3 #### [facility] [address] [place] [address] Dr. Cole Echeverria Calcium [Mass/Vol] 9.6 mg/dL Normal 8.5-10.1 [facility] Comment on above: Performed By: #### T SH, FT3 #### [facility] [address] [place] [address] Dr. Cole Echeverria Chloride [Moles/Vol] 101 mmol/L Normal 98-107 [facility] Comment on above: Performed By: #### T SH, FT3 #### [facility] [address] [place] [address] Dr. Cole Echeverria CO2 [Moles/Vol] 31.6 mmol/L Normal 21.0-32.0 [facility] Comment on above: Performed By: #### T SH, FT3 #### [facility] [address] [place] [address] Dr. Cole Echeverria Creatinine [Mass/Vol] 1.13 mg/dL Normal 0.70-1.30 [facility] Comment on above: Performed By: #### T SH, FT3 #### [facility] [address] [place] [address] Dr. Cole Echeverria EGFR-AF BRUNEIAN >60 Normal >=60 [facility] Comment on above: Performed By: #### T SH, FT3 #### [facility] [address] [place] [address] Dr. Cole Echeverria EGFR-NON AF BRUNEIAN >60 Normal >=60 [facility] Comment on above: Performed By: #### T SH, FT3 #### [facility] [address] [place] [address] Dr. Cole Echeverria Globulin (S) [Mass/Vol] 5.0 g/dL Normal [facility] Comment on above: Performed By: #### T SH, FT3 #### [facility] [address] [place] [address] Dr. Cole Echeverria Glucose [Mass/Vol] 104 mg/dL Normal 74-106 [facility] Comment on above: Performed By: #### T SH, FT3 #### [facility] [address] [place] [address] Dr. Cole Echeverria Potassium [Moles/Vol] 3.9 mmol/L Normal 3.5-5.1 [facility] Comment on above: Performed By: #### T SH, FT3 #### [facility] [address] [place] [address] Dr. Cole Echeverria Protein [Mass/Vol] 8.1 g/dL Normal 6.4-8.2 [facility] Comment on above: Performed By: #### T SH, FT3 #### [facility] [address] [place] [address] Dr. Cole Echeverria Sodium [Moles/Vol] 138 mmol/L Normal 136-145 [facility] Comment on above: Performed By: #### T SOPHIE, FT3 #### [facility] [address] [place] [address] Dr. Cole Echeverria Urea nitrogen [Mass/Vol] 21.0 mg/dL Critically high 7.0-18.0 [facility] Comment on above: Performed By: #### T SOPHIE, FT3 #### [facility] [address] [place] [address] Dr. Cole Echeverria Urea nitrogen/Creatinine [Mass ratio] 18.6 mg/mg Normal [facility] Comment on above: Performed By: #### T SOPHIE, FT3 #### [facility] [address] [place] [address] Dr. Cole Echeverria URINE T PROTEIN CREAT RATIOo n 10-03-2022 Protein (U) [Mass/Vol] 7.0 mg/dL Normal <=12.0 [facility] Comment on above: Performed By: #### T SOPHIE, FT3 #### [facility] [address] [place] [address] Dr. Cole Echeverria UR PROT CREAT RAT 0.11 Normal [facility] Comment on above: Performed By: #### T SOPHIE, FT3 #### [facility] [address] [place] [address] Dr. Cole Echeverria URINE CREAT 62.81 mg/dL Normal 20.00-300.00 [facility] Comment on above: Performed By: #### T SOPHIE, FT3 #### [facility] [address] [place] [address] Dr. Cole Echeverria VITAMIN D 25 OHon 10-03-2022 VIT D 25-OH 52.1 ng/mL Normal [facility] Comment on above: Performed By: #### T SOPHIE, FT3 #### [facility] [address] [place] [address] Dr. Cole Echeverria VIT D RANGES SEE BELOW Normal [facility] Comment on above: Result Comment: <20 ng/mL Vit D deficient 20 - <30 ng/mL Vit D insufficient 30 - 100 ng/mL Vit D sufficient >100 ng/mL Potential Toxicity Performed By: #### T SH, FT3 #### [facility] [address] [place], [place] [address] Dr. Cole Echeverria BNPon 07-12-2022 Natriuretic peptide B (Bld) [Mass/Vol] 1748.0 pg/mL Normal <=1,800.0 [facility] Comment on above: Performed By: #### F T4, PSASC #### [facility] [address] [place], [place] [address] Dr. Cole Echeverria Office Visit (Cardiology)on 07-12-2022 [...] Metabolic Panel; Status:Active - Retrospective Authorization; Requested for:[id number]; Brain Natriuretic Peptide BNP; Status:Active - Retrospective Authorization; Requested for:[id number]; Health Maintenance Basic Metabolic Panel; Status:Canceled - Retrospective Authorization; Morbid obesity with BMI of 50.0-59.9, adult Healthy Weight Tips; Status:Complete - Retrospective Authorization; Done: [id number] Unlinked Healthy Weight Tips; Status:Complete - Retrospective Authorization; Done: [id number] Tobacco Use Screening; Status:Complete; Done: [id number] Tobacco Use Screening; Status:Complete; Done: [id number] Patient Instructions Please bring all medicines, vitamins, [...] up in 6 months Chief Complaint 07/05/2022 [facility] DC SP EKOS. RAFAEL CABRAL is being [...] Vitals Vital Signs Recorded: 12Jul2022 11:36AM Heart Qsde351, L Radial Lrabgfkc529, LUE, Sitting Eflnutami90, LUE, Sitting Height5 ft 11 in Bfrnjh034 lb BMI Btbjkdnylp74.05 kg/m2 BSA Calculated2.73 Tobacco Useb) No PHQ-2 [...] no thyrom (more content not included)... Normal [employer] PROF CHEM 8 (BAS METB)on Anion gap [Moles/Vol] 10.2 mmol/L Normal [facility] Comment on above: Performed By: #### F T4, PSASC #### [facility] [address] [place] [address] Dr. Cole Echeverria Calcium [Mass/Vol] 8.9 mg/dL Normal 8.5-10.1 [facility] Comment on above: Performed By: #### F T4, PSASC #### [facility] [address] [place] [address] [address] Cole Echeverria Chloride [Moles/Vol] 97 mmol/L Critically low 98-107 [facility] Comment on above: Performed By: #### F T4, PSASC #### [facility] [address] [place] [address] [address] Cole Echeverria CO2 [Moles/Vol] 32.3 mmol/L Critically high 21.0-32.0 [facility] Comment on above: Performed By: #### F T4, PSASC #### [facility] [address] [place] [address] [address] Cole Echeverria Creatinine [Mass/Vol] 1.18 mg/dL Normal 0.70-1.30 [facility] Comment on above: Performed By: #### F T4, PSASC #### [facility] [address] [place] [address] Dr. Cole Echeverria EGFR-AF BRUNEIAN >60 Normal >=[address] [facility] Comment on above: Performed By: #### F T4, PSASC #### [facility] [address] [place] [address] [address] Cole Echeverria EGFR-NON AF BRUNEIAN =60 Normal >=60 [facility] Comment on above: Performed By: #### F T4, PSASC #### [facility] [address] [place] [address] [address] Cole Echeverria Glucose [Mass/Vol] 104 mg/dL Normal 74-106 [facility] Comment on above: Performed By: #### F T4, PSASC #### [facility] [address] [place] [address] [address] Cole Echeverria Potassium [Moles/Vol] 3.5 mmol/L Normal 3.5-5.1 [facility] Comment on above: Performed By: #### F T4, PSASC #### [facility] [address] [place] [address] Dr. Cole Echeverria Sodium [Moles/Vol] 136 mmol/L Normal 136-145 [facility] Comment on above: Performed By: #### F T4, PSASC #### [facility] [address] [place] [address] [address] Cole Echeverria Urea nitrogen [Mass/Vol] 11.0 mg/dL Normal 7.0-18.0 [facility] Comment on above: Performed By: #### F T4, PSASC #### [facility] [address] [place] [address] [address] Cole Echeverria Urea nitrogen/Creatinine [Mass ratio] 9.3 mg/mg Normal [facility] Comment on above: Performed By: #### F T4, PSASC #### [facility] [address] [place] [address] Dr. Cole Echeverria Tobacco Screening.on 022 Adult depression screening assessment No [facility] 250 DO Work Phone: Fall risk assessment a) No falls within the last year [facility]-[place] 250 DO Work Phone: Tobacco use status CPHS b) No [facility]-[place] 250 DO Work Phone: Basic Metabolic Panelon 06-06 Calcium [Mass/Vol] 8.7 mg/dL Normal 8.2-10.2 [facility] Comment on above: Performed By: #### C BC, BMP #### [facility] [address] Chloride [Moles/Vol] 104 mmol/L Normal 95-114 [facility] Comment on above: Performed By: #### C BC, BMP #### [facility] [address] CO2 [Moles/Vol] 28.0 mmol/L Normal 22.0-30.0 [facility] Comment on above: Performed By: #### C BC, BMP #### [facility] [address] [place] [address] [place] Creatinine [Mass/Vol] 1.60 mg/dL High 0.64-1.27 [facility] Comment on above: Performed By: #### C BC, BMP #### [facility] [address] [place] [address] [place] Creatinine Clr Calc Pharmacy 62.30 [facility] Comment on above: Result Comment: PERF ORMED BY: [place] [address] PATHOLOGIST [employer]ITIME OFFICER ADRIEN RAMIREZ M.D. Performed By: #### C BC, BMP #### [facility] [address] [place] [address] [place] Estimated GFR ( Janeen [address] [facility] Comment on above: Result Comment: GFR estimated reference range: According to KDOQI guidelines, <60 ml/min/1.73m2 is sufficient to diagnose a patient with chronic kidney disease. Performed By: #### C BC, BMP #### [address] Estimated GFR (Non- Am 42 Normal [facility] Comment on above: Performed By: #### C BC, BMP #### [address] Glucose [Mass/Vol] 111 mg/dL High 70-100 [facility] Comment on above: Result Comment: [facility] Glucose Reference Range is dependent on time and content of last meal. Glucose of more than 200 mg/dL in a nonstressed, ambulatory subject supports the diagnosis of Diabetes Mellitus. ADA recommended reference range Performed By: #### C BC, BMP #### [address] Potassium [Moles/Vol] 4.1 mmol/L Normal 3.5-5.1 [facility] Comment on above: Performed By: #### C BC, BMP #### [address] Sodium [Moles/Vol] 139 mmol/L Normal 136-146 [facility] Comment on above: Performed By: #### C BC, BMP #### [address] Urea nitrogen [Mass/Vol] 35 mg/dL High 9-23 [facility] Comment on above: Performed By: #### C BC, BMP #### [address] Complete Blood Count Auto Di ffon 06-24-2022 Basophils (Bld) [#/Vol] 0.1 10*3/uL Normal 0.0-0.2 [facility] Comment on above: Result Comment: PERF ORMED BY: [place] [address] PATHOLOGIST [employer]ITIME OFFICER ADRIEN RAMIREZ M.D. Performed By: #### C BC, BMP #### [place] [address] [place] Basophils/100 WBC (Bld) 0.6 % Normal . [facility] Comment on above: Performed By: #### C BC, BMP #### [facility] [address] Eosinophils (Bld) [#/Vol] 0.6 10*3/uL High 0.0-0.45 [facility] Comment on above: Performed By: #### C BC, BMP #### [facility] [address] Eosinophils/100 WBC (Bld) 7.2 % Normal . [facility] Comment on above: Performed By: #### C BC, BMP #### [facility] [address] Erythrocyte distribution width (RBC) [Ratio] 14.9 % High 12.0-14.8 [facility] Comment on above: Performed By: #### C BC, BMP #### [facility] [address] Hematocrit (Bld) [Volume fraction] 39.6 % Normal 38.8-50.0 [facility] Comment on above: Performed By: #### C BC, BMP #### [facility] [address] Hemoglobin (Bld) [Mass/Vol] 13.1 g/dL Normal 13.0-17.0 [facility] Comment on above: Performed By: #### C BC, BMP #### [facility] [address] [place] [address] [place] Lymphocytes (Bld) [#/Vol] 2.0 10*3/uL Normal 1.00-4.8 [facility] Comment on above: Performed By: #### C BC, BMP #### [facility] [address] [place] [address] [place] Lymphocytes/100 WBC (Bld) 23.1 % Normal . [facility] Comment on above: Performed By: #### C BC, BMP #### [facility] [address] MCH (RBC) [Entitic mass] 30.2 pg Normal 27.5-35.2 [facility] Comment on above: Performed By: #### C BC, BMP #### [facility] [address] MCV (RBC) [Entitic vol] 91.5 fL Normal 83.5-101 [facility] Comment on above: Performed By: #### C BC, BMP #### [facility] [address] Mean Corpuscular HGB Conc 33.0 g/dL Normal 32.5-35.6 [facility] Comment on above: Performed By: #### C BC, BMP #### [facility] [address] Monocytes (Bld) [#/Vol] 0.6 10*3/uL Normal 0.0-0.8 [facility] Comment on above: Performed By: #### C BC, BMP #### [facility] [address] Monocytes/100 WBC (Bld) 7.5 % Normal . [facility] Comment on above: Performed By: #### C BC, BMP #### [facility] [address] [place] [address] [place] Neutrophils (Bld) [#/Vol] 5.3 10*3/uL Normal 1.8-7.7 [facility] Comment on above: Performed By: #### C BC, BMP #### [facility] [address] [place] [address] [place] Neutrophils/100 WBC (Bld) 61.6 % Normal . [facility] Comment on above: Performed By: #### C BC, BMP #### [facility] [address] [place] [address] [place] Nucleated RBC/100 WBC (Bld) [Ratio] 0.0 % Normal 0-0.5 [facility] Comment on above: Performed By: #### C BC, BMP #### [facility] [address] Platelet mean volume (Bld) [Entitic vol] 9.0 fL Normal 6.6-10.1 [facility] Comment on above: Performed By: #### C BC, BMP #### [facility] [address] Platelets (Bld) [#/Vol] 165 10*3/uL Normal 150-450 [facility] Comment on above: Performed By: #### C BC, BMP #### [facility] [address] RBC (Bld) [#/Vol] 4.33 10*6/uL Normal 3.90-5.60 [facility] Comment on above: Performed By: #### C BC, BMP #### [address] WBC (Bld) [#/Vol] 8.6 10*3/uL Normal 4.5-11.0 [facility] Comment on above: Performed By: #### C AMANDEEP, BMP #### [address] Creatinine, Urine (Random)on 06-24-2022 Creatinine, Urine (Random) 162.5 mg/dL Normal [facility] Comment on above: Result Comment: No r eference range established Performed By: #### C AMANDEEP, BMP #### [address] Partial Thromboplastin Timeo n 06-24-2022 aPTT Coag (Bld) [Time] 77.2 s High 25.1-36.5 [facility] Comment on above: Result Comment: PERF ORMED BY: [place] [address] PATHOLOGIST [employer]IT[employer] OFFICER ADRIEN RAMIREZ M.D. Performed By: #### C AMANDEEP, BMP #### [address] Prothrombin Time INRon 06-24 INR Coag (PPP) [Relative time] 1.9 {INR} Normal [facility] Comment on above: Result Comment: INR [...] Performed By: #### C BC, BMP #### [facility] [address] PT Coag (PPP) [Time] 21.9 s High 9.0-12.9 [facility] Comment on above: Performed By: #### C BC, BMP #### [facility] [address] Thyroid Stim Hormone w/Rflxo n 06-24-2022 Thyroid Stim Hormone w/Rflx 1.06 u[iU]/mL Normal 0.45-5.33 [facility] Comment on above: Order Comment: Comme nt Add on to previous lab draw Result Comment: PERF ORMED BY: [place] [address] PATHOLOGIST [employer]ITIME OFFICER ADRIEN RAMIREZ M.D. Performed By: #### C BC, BMP #### [address] Total Protein, Urineon 06-24 Protein (U) [Mass/Vol] 7 mg/dL Normal 0-9 [facility] Comment on above: Result Comment: PERF ORMED BY: [place] [address] PATHOLOGIST [employer]ITIME OFFICER ADRIEN RAMIREZ M.D. Performed By: #### C BC, BMP #### [facility] [address] [place] [address] [place] Urinalysison 06-24-2022 Appearance (U) Clear Normal Clear [facility] Comment on above: Order Comment: Name Collection Type:: Voided Performed By: #### C BC, BMP #### [facility] [address] [place] [address] [place] Bilirubin,Urine Negative Normal Negative [facility] Comment on above: Order Comment: Name Collection Type:: Voided Performed By: #### C BC, BMP #### [place] [address] [place] Color (U) Yellow Normal Yellow [facility] Comment on above: Order Comment: Name Collection Type:: Voided Performed By: #### C BC, BMP #### [address] Glucose Ql (U) Normal Normal Normal [facility] Comment on above: Order Comment: Name Collection Type:: Voided Performed By: #### C BC, BMP #### [address] Ketones Ql (U) Negative Normal Negative [facility] Comment on above: Order Comment: Name Collection Type:: Voided Performed By: #### C BC, BMP #### [address] Leukocyte esterase Test strip Ql (U) Negative Normal Negative [facility] Comment on above: Order Comment: Name Collection Type:: Voided Performed By: #### C BC, BMP #### [place] [address] [place] Nitrite,Urine Negative Normal Negative [facility] Comment on above: Order Comment: Name Collection Type:: Voided Performed By: #### C BC, BMP #### [address] Occult Blood,Urine Negative Normal Negative [facility] Comment on above: Order Comment: Name Collection Type:: Voided Result Comment: PERF ORMED BY: [place] [address] PATHOLOGIST MARITIME OFFICER ADRIEN RAMIREZ M.D. Performed By: #### C BC, BMP #### [place] [address] [place] pH (U) 5.5 [pH] Normal 5.0-9.0 [facility] Comment on above: Order Comment: Name Collection Type:: Voided Performed By: #### C BC, BMP #### [place] [address] [place] Protein,Urine Negative Normal Negative [facility] Comment on above: Order Comment: Name Collection Type:: Voided Performed By: #### C BC, BMP #### [address] Specificy Colp,Urine 1.021 Normal 1.001-1.030 [facility] Comment on above: Order Comment: Name Collection Type:: Voided Performed By: #### C BC, BMP #### [address] Urobilinogen,Urine Normal Normal Normal [facility] Comment on above: Order Comment: Name Collection Type:: Voided Performed By: #### C BC, BMP #### [address] B-Type Natriuretic Peptideon 06-23-2022 Natriuretic peptide B (Bld) [Mass/Vol] 343.0 pg/mL High 5-100 [facility] Comment on above: Result Comment: PERF ORMED BY: [place] [address] PATHOLOGIST MARITIME OFFICER ADRIEN RAMIREZ M.D. Performed By: #### B SERVICE CREW LEADER #### [address] Basic Metabolic Panelon 06-05 Calcium [Mass/Vol] 8.2 mg/dL Normal 8.2-10.2 [facility] Comment on above: Performed By: #### C BC, BMP #### [place] [address] [place] Chloride [Moles/Vol] 103 mmol/L Normal 95-114 [facility] Comment on above: Performed By: #### C BC, BMP #### [address] CO2 [Moles/Vol] 27.3 mmol/L Normal 22.0-30.0 [facility] Comment on above: Performed By: #### C BC, BMP #### [address] Creatinine [Mass/Vol] 1.86 mg/dL High 0.64-1.27 [facility] Comment on above: Performed By: #### C BC, BMP #### [address] Creatinine Clr Calc Pharmacy 53.59 [facility] Comment on above: Result Comment: PERF ORMED BY: [place] [address] PATHOLOGIST MARITIME OFFICER ADRIEN RAMIREZ M.D. Performed By: #### C BC, BMP #### [address] Estimated GFR ( Janeen 43 [facility] Comment on above: Result Comment: GFR estimated reference range: According to KDOQI guidelines, <60 ml/min/1.73m2 is sufficient to diagnose a patient with chronic kidney disease. Performed By: #### C BC, BMP #### [place] [address] [place] Estimated GFR (Non- Am 36 [facility] Comment on above: Performed By: #### C BC, BMP #### [address] Glucose [Mass/Vol] 144 mg/dL High 70-100 [facility] Comment on above: Result Comment: [place] Glucose Reference Range is dependent on time and content of last meal. Glucose of more than 200 mg/dL in a nonstressed, ambulatory subject supports the diagnosis of Diabetes Mellitus. ADA recommended reference range Performed By: #### C BC, BMP #### [address] Potassium [Moles/Vol] 3.8 mmol/L Normal 3.5-5.1 [facility] Comment on above: Performed By: #### C BC, BMP #### [address] Sodium [Moles/Vol] 138 mmol/L Normal 136-146 [facility] Comment on above: Performed By: #### C BC, BMP #### [place] [address] [place] Urea nitrogen [Mass/Vol] 42 mg/dL High 9-23 [facility] Comment on above: Performed By: #### C BC, BMP #### [address] Complete Blood Count Auto Di ffon 06-23-2022 Basophils (Bld) [#/Vol] 0.0 10*3/uL Normal 0.0-0.2 [facility] Comment on above: Result Comment: PERF ORMED BY: [place] [address] PATHOLOGIST MARITIME OFFICER ADRIEN RAMIREZ M.D. Performed By: #### C AMANDEEP, BMP #### [address] Basophils/100 WBC (Bld) 0.3 % Normal . [facility] Comment on above: Performed By: #### C BC, BMP #### [address] Eosinophils (Bld) [#/Vol] 0.6 10*3/uL High 0.0-0.45 [facility] Comment on above: Performed By: #### C BC, BMP #### [address] Eosinophils/100 WBC (Bld) 6.6 % Normal . [facility] Comment on above: Performed By: #### C BC, BMP #### [address] Erythrocyte distribution width (RBC) [Ratio] 14.6 % Normal 12.0-14.8 [facility] Comment on above: Performed By: #### C BC, BMP #### [address] Hematocrit (Bld) [Volume fraction] 39.2 % Normal 38.8-50.0 [facility] Comment on above: Performed By: #### C BC, BMP #### [address] Hemoglobin (Bld) [Mass/Vol] 12.8 g/dL Low 13.0-17.0 [facility] Comment on above: Performed By: #### C BC, BMP #### [facility] [address] Lymphocytes (Bld) [#/Vol] 1.8 10*3/uL Normal 1.00-4.8 [facility] Comment on above: Performed By: #### C BC, BMP #### [facility] [address] Lymphocytes/100 WBC (Bld) 21.7 % Normal . [facility] Comment on above: Performed By: #### C BC, BMP #### [facility] [address] MCH (RBC) [Entitic mass] 30.0 pg Normal 27.5-35.2 [facility] Comment on above: Performed By: #### C BC, BMP #### [facility] [address] MCV (RBC) [Entitic vol] 92.1 fL Normal 83.5-101 [facility] Comment on above: Performed By: #### C BC, BMP #### [facility] [address] Mean Corpuscular HGB Conc 32.5 g/dL Normal 32.5-35.6 [facility] Comment on above: Performed By: #### C BC, BMP #### [facility] [address] [place] [address] [place] Monocytes (Bld) [#/Vol] 0.5 10*3/uL Normal 0.0-0.8 [facility] Comment on above: Performed By: #### C BC, BMP #### [facility] [address] [place] [address] [place] Monocytes/100 WBC (Bld) 6.3 % Normal . [facility] Comment on above: Performed By: #### C BC, BMP #### [facility] [address] Neutrophils (Bld) [#/Vol] 5.5 10*3/uL Normal 1.8-7.7 [facility] Comment on above: Performed By: #### C BC, BMP #### [facility] [address] [place] [address] [place] Neutrophils/100 WBC (Bld) 65.1 % Normal . [facility] Comment on above: Performed By: #### C BC, BMP #### [facility] [address] [place] [address] [place] Nucleated RBC/100 WBC (Bld) [Ratio] 0.0 % Normal 0-0.5 [facility] Comment on above: Performed By: #### C BC, BMP #### [facility] [address] Platelet mean volume (Bld) [Entitic vol] 9.1 fL Normal 6.6-10.1 [facility] Comment on above: Performed By: #### C BC, BMP #### [facility] [address] [place] [address] [place] Platelets (Bld) [#/Vol] 165 10*3/uL Normal 150-450 [facility] Comment on above: Performed By: #### C BC, BMP #### [facility] [address] [place] [address] [place] RBC (Bld) [#/Vol] 4.26 10*6/uL Normal 3.90-5.60 [facility] [place] [facility] Comment on above: Performed By: #### C BC, BMP #### [facility] [address] [place] [address] [place] WBC (Bld) [#/Vol] 8.4 10*3/uL Normal 4.5-11.0 [facility] Comment on above: Performed By: #### C BC, BMP #### [facility] [address] [place] [address] [place] Basophils (Bld) [#/Vol] 0.0 10*3/uL Normal 0.0-0.2 [facility] Comment on above: Result Comment: PERF ORMED BY: [place] [address] PATHOLOGIST MARITIME OFFICER ADRIEN RAMIREZ M.D. Performed By: #### C BC, CMP, HS TROP #### [facility] [address] [place] [address] [place] Basophils/100 WBC (Bld) 0.4 % Normal . [facility] Comment on above: Performed By: #### C BC, CMP, HS TROP #### [facility] [address] Eosinophils (Bld) [#/Vol] 0.5 10*3/uL High 0.0-0.45 [facility] Comment on above: Performed By: #### C BC, CMP, HS TROP #### [facility] [address] [place] [address] [place] Eosinophils/100 WBC (Bld) 4.0 % Normal . [facility] Comment on above: Performed By: #### C BC, CMP, HS TROP #### [facility] [address] Erythrocyte distribution width (RBC) [Ratio] 14.7 % Normal 12.0-14.8 [facility] Comment on above: Performed By: #### C BC, CMP, HS TROP #### [facility] [address] Hematocrit (Bld) [Volume fraction] 41.3 % Normal 38.8-50.0 [facility] Comment on above: Performed By: #### C BC, CMP, HS TROP #### [facility] [address] [place] [address] [place] Hemoglobin (Bld) [Mass/Vol] 13.4 g/dL Normal 13.0-17.0 [facility] Comment on above: Performed By: #### C BC, CMP, HS TROP #### [facility] [address] [place] [address] [place] Lymphocytes (Bld) [#/Vol] 2.0 10*3/uL Normal 1.00-4.8 [facility] Comment on above: Performed By: #### C BC, CMP, HS TROP #### [facility] [address] [place] [address] [place] Lymphocytes/100 WBC (Bld) 17.2 % Normal . [facility] Comment on above: Performed By: #### C BC, CMP, HS TROP #### [address] MCH (RBC) [Entitic mass] 30.1 pg Normal 27.5-35.2 [facility] Comment on above: Performed By: #### C BC, CMP, HS TROP #### [address] MCV (RBC) [Entitic vol] 92.6 fL Normal 83.5-101 [facility] Comment on above: Performed By: #### C BC, CMP, HS TROP #### [address] Mean Corpuscular HGB Conc 32.4 g/dL Low 32.5-35.6 [facility] Comment on above: Performed By: #### C BC, CMP, HS TROP #### [address] Monocytes (Bld) [#/Vol] 0.7 10*3/uL Normal 0.0-0.8 [facility] Comment on above: Performed By: #### C BC, CMP, HS TROP #### [address] Monocytes/100 WBC (Bld) 5.8 % Normal . [facility] Comment on above: Performed By: #### C BC, CMP, HS TROP #### [address] Neutrophils (Bld) [#/Vol] 8.4 10*3/uL High 1.8-7.7 [facility] Comment on above: Performed By: #### C BC, CMP, HS TROP #### [address] Neutrophils/100 WBC (Bld) 72.6 % Normal . [facility] Comment on above: Performed By: #### C BC, CMP, HS TROP #### [place] [address] [place] Nucleated RBC/100 WBC (Bld) [Ratio] 0.0 % Normal 0-0.5 [facility] Comment on above: Performed By: #### C BC, CMP, HS TROP #### [facility] [address] Platelet mean volume (Bld) [Entitic vol] 9.0 fL Normal 6.6-10.1 [facility] Comment on above: Performed By: #### C BC, CMP, HS TROP #### [facility] [address] Platelets (Bld) [#/Vol] 204 10*3/uL Normal 150-450 [facility] Comment on above: Performed By: #### C BC, CMP, HS TROP #### [address] RBC (Bld) [#/Vol] 4.45 10*6/uL Normal 3.90-5.60 [facility] [place] [facility] Comment on above: Performed By: #### C BC, CMP, HS TROP #### [address] WBC (Bld) [#/Vol] 11.6 10*3/uL High 4.5-11.0 [facility] [place] [facility] Comment on above: Performed By: #### C BC, CMP, HS TROP #### [facility] [address] [place] [address] Comprehensive Metabolic Pane isidro 06-23-2022 Albumin [Mass/Vol] 2.9 g/dL Low 3.2-5.5 [facility] Comment on above: Performed By: #### C BC, CMP, HS TROP #### [facility] [address] [place] [address] Albumin/Globulin [Mass ratio] 0.7 {ratio} Normal [facility] Comment on above: Performed By: #### C BC, CMP, HS TROP #### [facility] [address] [place] [address] ALP [Catalytic activity/Vol] 70 U/L Normal 32-92 [facility] Comment on above: Performed By: #### C BC, CMP, HS TROP #### [facility] [address] [place] [id number] [place] ALT [Catalytic activity/Vol] 20 U/L Normal 10-60 [facility] Comment on above: Performed By: #### C BC, CMP, HS TROP #### [facility] [address] [place] [address] [place] AST [Catalytic activity/Vol] 20 U/L Normal 10-42 [facility] Comment on above: Performed By: #### C BC, CMP, HS TROP #### [facility] [address] [place] [address] [place] Bilirubin [Mass/Vol] 1.2 mg/dL Normal 0.3-1.2 [facility] Comment on above: Performed By: #### C BC, CMP, HS TROP #### [facility] [address] [place] [address] [place] Calcium [Mass/Vol] 8.8 mg/dL Normal 8.2-10.2 [facility] Comment on above: Performed By: #### C BC, CMP, HS TROP #### [facility] [address] [place] [address] [place] Chloride [Moles/Vol] 97 mmol/L Normal 95-114 [facility] Comment on above: Performed By: #### C BC, CMP, HS TROP #### [facility] [address] [place] [address] [place] CO2 [Moles/Vol] 28.1 mmol/L Normal 22.0-30.0 [facility] Comment on above: Performed By: #### C BC, CMP, HS TROP #### [facility] [address] [place] [id number] [place] Creatinine [Mass/Vol] 1.87 mg/dL High 0.64-1.27 [facility] Comment on above: Performed By: #### C BC, CMP, HS TROP #### [facility] [address] [place] [id number] [place] Creatinine Clr Calc Pharmacy 52.98 Normal [facility] Comment on above: Result Comment: PERF ORMED BY: [place] [address] PATHOLOGIST MARITIME OFFICER ADRIEN RAMIREZ M.D. Performed By: #### C BC, CMP, HS TROP #### [address] Estimated GFR ( Janeen 43 [facility] Comment on above: Result Comment: GFR estimated reference range: According to KDOQI guidelines, <60 ml/min/1.73m2 is sufficient to diagnose a patient with chronic kidney disease. Performed By: #### C BC, CMP, HS TROP #### [address] Estimated GFR (Non- Am 35 [facility] Comment on above: Performed By: #### C BC, CMP, HS TROP #### [address] Globulin (S) [Mass/Vol] 4.0 g/dL [facility] Comment on above: Performed By: #### C BC, CMP, HS TROP #### [address] Glucose [Mass/Vol] 121 mg/dL High 70-100 [facility] Comment on above: Result Comment: [place] om Glucose Reference Range is dependent on time and content of last meal. Glucose of more than 200 mg/dL in a nonstressed, ambulatory subject supports the diagnosis of Diabetes Mellitus. ADA recommended reference range Performed By: #### C BC, CMP, HS TROP #### [facility] [address] [place] [address] Potassium [Moles/Vol] 4.1 mmol/L Normal 3.5-5.1 [facility] Comment on above: Performed By: #### C BC, CMP, HS TROP #### [facility] [address] [place] [address] Protein [Mass/Vol] 6.9 g/dL Normal 6.1-7.9 [facility] Comment on above: Performed By: #### C BC, CMP, HS TROP #### [facility] [address] [place] [address] Sodium [Moles/Vol] 137 mmol/L Normal 136-146 [facility] Comment on above: Performed By: #### C BC, CMP, HS TROP #### [address] Urea nitrogen [Mass/Vol] 41 mg/dL High 9-23 [facility] Comment on above: Performed By: #### C BC, CMP, HS TROP #### [address] Creatinine, Urine (Random)on 06-23-2022 Creatinine, Urine (Random) 60.1 mg/dL Normal [facility] Comment on above: Result Comment: No r eference range established Performed By: #### U NA, UCREA #### [address] #### UR UREA NIT #### [facility] , [facility] echo transthoracicon [facility] echo transthoracic [facility] [place] [address] [place] [address] Echocardiogram Signed Patient: Rafael Cbaral MR#: [id number] : 1945 Acct:[id number] Age/Sex: 76 / M ADM Date: 06/22/22 Loc: Room: [address] [place] [address] Type: DIS IN Attending Dr: Rafael Napier MD Ordering Provider: Nely Michelle APRN Date of Service: 06/22/22 [facility] echo transthoracic: CHF Copies to: Susi Rivas MD, [facility] Nely Michelle APRN Height: 71 in [...] 06/23/22 0952 Signed By: Susi Rivas MD, [facility] 06/23/22 1045 Normal [facility] NM pul perfusionon 2 NM pul perfusion [place] [address] Nuclear Medicine Report Signed with Addenda Patient: Rafael Cabral MR#: [id number] : 1945 Acct:[id number] Age/Sex: 76 / M ADM Date: 06/22/22 Loc: Room: [address] [place] [address] Type: ADM IN Attending Dr: Rafael Napier MD Copies to: MD Fely Etienne MD Linda Obika, APRN Ordering Provider: Nely Michelle APRN Date of Service: 06/23/22 IA/IA pul perfusion: R/O PE ADDENDUM 1 Patient's nurse was notified of findings at the time of this interpretation at 1511 hours Impression dictated by: Fely Henderson M.D.06/23/2022 3:12 PM Dictation Location: [place] [address] Addendum Dictated By: MD Fely Henderson Addendum [...] Fely Henderson M.D.06/23/2022 3:06 PM Dictation Location: [place] [address] Transcribed By: [facility] 06/23/22 1506 Dictated By: Fely Henderson MD 06/23/22 1456 Signed By: 06/23/22 1506 Normal [facility] Partial Thromboplastin Timeo n 06-23-2022 aPTT Coag (Bld) [Time] 88.0 s High 25.1-36.5 [facility] Comment on above: Result Comment: PERF ORMED BY: [place] [address] PATHOLOGIST MARITIME OFFICER ADRIEN RAMIREZ M.D. Performed By: #### C BC, BMP #### [facility] [address] [place] [address] [place] aPTT Coag (Bld) [Time] 72.0 s High 25.1-36.5 [facility] Comment on above: Result Comment: PERF ORMED BY: [place] [address] PATHOLOGIST MARITIME OFFICER ADRIEN RAMIREZ M.D. Performed By: #### P TT #### [facility] [address] [place] [address] [place] aPTT Coag (Bld) [Time] 53.8 s High 25.1-36.5 [facility] Comment on above: Result Comment: PERF ORMED BY: [facility] [address] [place] [address] PATHOLOGIST MARITIME OFFICER ADRIEN RAMIREZ M.D. Performed By: #### C BC, BMP #### [facility] [address] [place] [address] [place] aPTT Coag (Bld) [Time] 43.5 s High 25.1-36.5 [facility] Comment on above: Result Comment: PERF ORMED BY: [facility] [address] [place] [address] PATHOLOGIST MARITIME OFFICER ADRIEN RAMIREZ M.D. Performed By: #### C BC, BMP #### [facility] [address] Prothrombin Time INRon 06-23 INR Coag (PPP) [Relative time] 1.3 {INR} Normal [facility] Comment on above: Result Comment: INR [...] Performed By: #### C AMANDEEP, BMP #### [address] PT Coag (PPP) [Time] 14.1 s High 9.0-12.9 [facility] Comment on above: Performed By: #### C AMANDEEP, BMP #### [address] INR Coag (PPP) [Relative time] 1.3 {INR} Normal [facility] Comment on above: Result Comment: INR [...] Performed By: #### C AMANDEEP, BMP #### [address] PT Coag (PPP) [Time] 14.2 s High 9.0-12.9 [facility] Comment on above: Performed By: #### C BC, BMP #### [address] Sodium, Urine (Random)on Sodium (U) [Moles/Vol] 105 mmol/L Normal [facility] Comment on above: Result Comment: No r eference range established PERFORMED BY: [place] [address] PATHOLOGIST MARITIME OFFICER ADRIEN RAMIREZ M.D. Performed By: #### U NA, UCREA #### [address] #### UR UREA NIT #### [facility] , Troponin I High Sensitivityo n 06-23-2022 Troponin I High Sensitivity 174 pg/mL Off scale high 0-20 [facility] Comment on above: Result Comment: Resu lts called at 0721 on 06/23/22 PERFORMED BY: [place] [address] PATHOLOGIST MARITIME OFFICER ADRIEN RAMIREZ M.D. Performed By: #### C BC, BMP #### [address] Troponin I High Sensitivity 244 pg/mL Off scale high 0-20 [facility] Comment on above: Result Comment: Resu lts called at 2345 on 06/22/22 PERFORMED BY: [place] [address] PATHOLOGIST MARITIME OFFICER ADRIEN RAMIREZ M.D. Performed By: #### C BC, CMP, HS TROP #### [address] Urine Urea Nitrogenon 2021 Urine Urea Nitrogen 392 mg/dL Normal Not Estab. [facility] [place] [facility] Comment on above: Result Comment: Perf ormed at: CB - [facility] [address] [id number] [employer] Aide: Solo Burden PhD, Phone: [phone] PERFORMED BY: [place] [address] PATHOLOGIST MARITIME OFFICER ADRIEN RAMIREZ M.D. Performed By: #### U NA, UCREA #### [place] [address] [place] #### UR UREA NIT #### [facility] , XR chest 1V portableon 06-23 XR chest 1V portable [place] [address] XRay Report Signed Patient: Rafael Cabral MR#: [id number] : 1945 Acct:[id number] Age/Sex: 76 / M ADM Date: 06/22/22 Loc: Room: [address] [place] [address] Type: ADM IN Attending Dr: Rafael Napier [...] Jayson Marsh M.D.06/23/2022 8:51 AM Dictation Location: [place] [address] Transcribed By: [facility] 06/23/22 0851 Dictated By: Jayson Marsh DO 06/23/22 0849 Signed By: 06/23/[address] [facility] BNPon 06-22-2022 Natriuretic peptide B (Bld) [Mass/Vol] 31205.0 pg/mL Critically high <=1,800.0 [facility] Comment on above: Performed By: #### F T4, PSASC #### [facility] [address] [place] [address] [address] Cole Echeverria CBC AUTO DIFFon 06-22-2022 BASO # 0.0 103/ul Normal 0.0-0.1 [facility] Comment on above: Performed By: #### T SH, FT3 #### [facility] [address] [place] [address] [address] Cole Echeverria Basophils/100 WBC (Bld) 0.2 % Normal 0.2-2.0 [facility] Comment on above: Performed By: #### T SH, FT3 #### [facility] [address] [place] [address] Dr. Cole Echeverria EO # 0.3 103/ul Normal 0.0-0.7 [facility] Comment on above: Performed By: #### T SH, FT3 #### [facility] [address] [place] [address] Dr. Cole Echeverria Eosinophils/100 WBC (Bld) 2.8 % Normal 0.9-7.0 [facility] [facility] Comment on above: Performed By: #### T SOPHIE, FT3 #### [facility] [address] [place] [address] Dr. Cole Echeverria Erythrocyte distribution width (RBC) [Ratio] 14.5 % Normal 11.0-15.0 [facility] Comment on above: Performed By: #### T SOPHIE, FT3 #### [facility] [address] [place] [address] Dr. Cole Echeverria Hematocrit (Bld) [Volume fraction] 41.4 % Critically low 42.0-54.0 [facility] Comment on above: Performed By: #### T SOPHIE, FT3 #### [facility] [address] [place] [address] Dr. Cole Echeverria Hemoglobin (Bld) [Mass/Vol] 13.2 g/dL Critically low 14.0-18.0 [facility] Comment on above: Performed By: #### T SOPHIE, FT3 #### [facility] [address] [place] [address] Dr. Cole Echeverria IG # 0.05 10e3/ul Critically high 0.00-0.03 [facility] Comment on above: Performed By: #### T SOPHIE, FT3 #### [facility] [address] [place] [address] Dr. Cole Echeverria IG % 0.4 % Normal 0.0-0.5 [facility] Comment on above: Performed By: #### T SOPHIE, FT3 #### [facility] [address] [place] [address] Dr. Cole Echeverria LYMPH # 1.8 103/ul Normal 1.2-3.8 [facility] Comment on above: Performed By: #### T SH, FT3 #### [facility] [address] [place] [address] Dr. Cole Echeverria Lymphocytes/100 WBC (Bld) 14.7 % Critically low 20.5-60.0 [facility] Comment on above: Performed By: #### T SH, FT3 #### [facility] [address] [place] [address] Dr. Cole Echeverria MANUAL DIFF REQ NO Normal [facility] Comment on above: Performed By: #### T SOPHIE, FT3 #### [facility] [address] [place] [address] Dr. Cole Echeverria MCH (RBC) [Entitic mass] 29.8 pg Normal 25.9-34.0 [facility] Comment on above: Performed By: #### T SOPHIE, FT3 #### [facility] [address] [place] [address] Dr. Cole Echeverria MCHC (RBC) [Mass/Vol] 31.9 g/dL Normal 29.9-35.2 [facility] Comment on above: Performed By: #### T SOPHIE, FT3 #### [facility] [address] [place] [address] Dr. Cole Echeverria MCV (RBC) [Entitic vol] 93.5 fL Normal 80.0-94.0 [facility] Comment on above: Performed By: #### T SOPHIE, FT3 #### [facility] [address] [place] [address] Dr. Cole Echeverria MONO # 0.7 103/ul Normal 0.3-0.8 [facility] Comment on above: Performed By: #### T SOPHIE, FT3 #### [facility] [address] [place] [address] Dr. Cole Echeverria Monocytes/100 WBC (Bld) 6.1 % Normal 1.7-12.0 [facility] Comment on above: Performed By: #### T , FT3 #### [facility] [address] [place] [address] Dr. Cole Echeverria NEUT # 9.2 103/ul Critically high 1.4-6.5 [facility] Comment on above: Performed By: #### T , FT3 #### [facility] [address] [place] [address] Dr. Cole Echeverria Neutrophils/100 WBC (Bld) 75.8 % Critically high 43.0-75.0 [facility] Comment on above: Performed By: #### T , FT3 #### [facility] [address] [place] [address] Dr. Cole Echeverria Platelet mean volume (Bld) [Entitic vol] 10.2 fL Normal 9.5-13.5 [facility] Comment on above: Performed By: #### T , FT3 #### [facility] [address] [place] [address] Dr. Cole Echeverria PLT 185 103/ul Normal 150-450 [facility] Comment on above: Performed By: #### T , FT3 #### [facility] [address] [place] [address] Dr. Cole Echeverria RBC 4.43 106/ul Critically low 4.70-6.10 [facility] Comment on above: Performed By: #### T , FT3 #### [facility] [address] [place] [address] Dr. Cole Echeverria WBC 12.1 103/ul Critically high 4.0-11.0 [facility] Comment on above: Performed By: #### T , FT3 #### [facility] [address] [place] [address] Dr. Cole Echeverria [facility]on 06-05 SARS-CoV-2 (COVID-19) RNA HALEIGH+probe Ql (Unsp spec) Not detected Normal NOT DETECTED [facility] Comment on above: Result Comment: When [...] for this test is supported by the Receiving And Processing Supervisor of Health and Human Service's declaration that [...] used). Performed By: #### C VDTBH #### [facility] [address] [place] [address] Dr. Cole Echeverria D-DIMERon 06-22-2022 D-DIMER 15.71 mg/L FEU Critically high <=0.59 [facility] Comment on above: Performed By: #### F T4, PSASC #### [facility] [address] [place] [address] Dr. Cole Echeverria D-DIMER COMMENTS SEE BELOW Normal [facility] Comment on above: Result Comment: Incr eases [...] Performed By: #### F T4, PSASC #### [facility] [address] [place] [address] Dr. Cole Echeverria PROF 14(COMP METB)on 022 Albumin [Mass/Vol] 2.9 g/dL Critically low 3.4-5.0 [facility] Comment on above: Performed By: #### F T4, PSASC #### [facility] [address] [place] [address] Dr. Cole Echeverria Albumin/Globulin [Mass ratio] 0.7 {ratio} Normal [facility] Comment on above: Performed By: #### F T4, PSASC #### [facility] [address] [place] [address] Dr. Cole Echeverria ALP [Catalytic activity/Vol] 89 U/L Normal 46-116 [facility] Comment on above: Performed By: #### F T4, PSASC #### [facility] [address] [address] [address] Cole Echeverria ALT [Catalytic activity/Vol] 21 U/L Normal 16-63 [facility] Comment on above: Performed By: #### F T4, PSASC #### [facility] [address] [place] [address] Dr. Cole Echeverria Anion gap [Moles/Vol] 11.8 mmol/L Normal [facility] Comment on above: Performed By: #### F T4, PSASC #### [facility] [address] [place] [address] Dr. Cole Echeverria AST [Catalytic activity/Vol] 19 U/L Normal 15-37 [facility] Comment on above: Performed By: #### F T4, PSASC #### [facility] [address] [place] [address] Dr. Cole Echeverria Bilirubin [Mass/Vol] 0.8 mg/dL Normal 0.2-1.0 [facility] Comment on above: Performed By: #### F T4, PSASC #### [facility] [address] [place] [address] Dr. Cole Echeverria Calcium [Mass/Vol] 9.0 mg/dL Normal 8.5-10.1 [facility] Comment on above: Performed By: #### F T4, PSASC #### [facility] [address] [place] [address] Dr. Cole Echeverria Chloride [Moles/Vol] 101 mmol/L Normal 98-107 [facility] Comment on above: Performed By: #### F T4, PSASC #### [facility] [address] [place] [address] Dr. Cole Echeverria CO2 [Moles/Vol] 29.3 mmol/L Normal 21.0-32.[address] [facility] Comment on above: Performed By: #### F T4, PSASC #### [facility] [address] [address] [address] Cole Echeverria Creatinine [Mass/Vol] 2.25 mg/dL Critically high 0.70-1.30 [facility] Comment on above: Performed By: #### F T4, PSASC #### [facility] [address] [address] [address] Cole Echeverria EGFR-AF BRUNEIAN 35 mL/min/1.73m2 Critically low >=60 [facility] Comment on above: Performed By: #### F T4, PSASC #### [facility] [address] [place] [address] Dr. Cole Echeverria EGFR-NON AF BRUNEIAN 29 mL/min/1.73m2 Critically low >=60 [facility] Comment on above: Performed By: #### F T4, PSASC #### [facility] [address] [place] [address] Dr. Cole Echeverria Globulin (S) [Mass/Vol] 4.3 g/dL Normal [facility] Comment on above: Performed By: #### F T4, PSASC #### [facility] [address] [place] [address] Dr. Cole Echeverria Glucose [Mass/Vol] 116 mg/dL Critically high 74-106 [facility] Comment on above: Performed By: #### F T4, PSASC #### [facility] [address] [place] [address] Dr. Cole Echeverria Potassium [Moles/Vol] 5.1 mmol/L Normal 3.5-5.1 [facility] Comment on above: Performed By: #### F T4, PSASC #### [facility] [address] [address] [address] Cole Echeverria Protein [Mass/Vol] 7.2 g/dL Normal 6.4-8.2 [facility] Comment on above: Performed By: #### F T4, PSASC #### [facility] [address] [place] [address] Dr. Cole Echeverria Sodium [Moles/Vol] 137 mmol/L Normal 136-145 [facility] Comment on above: Performed By: #### F T4, PSASC #### [facility] [address] [place] [address] Dr. Cole Echeverria Urea nitrogen [Mass/Vol] 49.0 mg/dL Critically high 7.0-18.0 [facility] Comment on above: Performed By: #### F T4, PSASC #### [facility] [address] [place] [address] Dr. Cole Echeverria Urea nitrogen/Creatinine [Mass ratio] 21.8 mg/mg Normal [facility] Comment on above: Performed By: #### F T4, PSASC #### [facility] [address] [place] [address] Dr. Cole Echeverria PROTIMEon 06-22-2022 INR Coag (PPP) [Relative time] 1.06 {INR} Normal [facility] Comment on above: Performed By: #### T SH, FT3 #### [facility] [address] [place] [address] Dr. Cole Echeverria INR GUIDELINES SEE BELOW Normal The [facility] Comment on above: Result Comment: MÓNICA RED INR: 2.0 - 3.0 CONDITIONS NOT LISTED BELOW 2.5 - 3.5 FOR PROSTHETIC HEART VALVE REPLACEMENT 2.5 - 3.5 RECURRENT THROMBOSIS Performed By: #### T SH, FT3 #### [facility] [address] [place] [address] Dr. Cole Echeverria PT Coag (PPP) [Time] 11.4 s Normal 9.0-11.6 [facility] Comment on above: Performed By: #### T SH, FT3 #### [facility] [address] [place] [address] Dr. Cole Echeverria PTTon 06-22-2022 aPTT Coag (Bld) [Time] 33.9 s Normal 22.3-36.2 [facility] Comment on above: Performed By: #### T SH, FT3 #### [facility] [address] [address] [address] Cole Echeverria TROPONIN, HIGH SENSITIVITYon 06-22-2022 HSTROP 345.5 pg/mL Critically high 4.0-76.1 [facility] Comment on above: Result Comment: CUT- OFF POINTS HAVE BEEN ESTABLISHED BASED ON THE FOURTH UNIVERSAL DEFINITIONS OF MYOCARDIAL INFARCTION. THE UPPER REFERENCE LIMIT (URL) OF TROPONIN, DEFINED THE 99TH PERCENTILE OF cTnI DISTRIBUTION IN A REFERENCE POPULATION, HAS BEEN CONFIRMED THE DECISION THRESHOLD FOR CT DIAGNOSIS. Performed By: #### F T4, PSASC #### [facility] [address] [address] [address] Cole Echeverria US JUAREZ DOP LEG [...] LAYO DAVISON Date: 2022-06-22 19:37 Normal [facility] XR CHEST 1 Von 06-22-2022 XR CHEST 1 V ONE-VIEW CHEST RADIOGRAPH, 06/22/2022 4:32 PM EDT COMPARISON: None. CLINICAL HISTORY: SHORTNESS OF BREATH Findings and impression: 1. Borderline pulmonary venous hypertension/pulmonary vascular congestion. 2. Borderline heart size. 3. No acute osseous abnormality. Electronically authenticated by: Richard PATRICIA Date: 2022-06-22 17:48 Normal [facility] CBC AUTO DIFFon 04-05-2022 BASO # 0.0 103/ul Normal 0.0-0.1 [facility] Comment on above: Performed By: #### T SH, FT3 #### [facility] [address] [address] [address] Cole Echeverria Basophils/100 WBC (Bld) 0.4 % Normal 0.2-2.0 [facility] Comment on above: Performed By: #### T SH, FT3 #### [facility] [address] [place] [address] Dr. oCle Echeverria EO # 0.2 103/ul Normal 0.0-0.7 [facility] Comment on above: Performed By: #### T SH, FT3 #### [facility] [address] [place] [address] Dr. Cole Echeverria Eosinophils/100 WBC (Bld) 2.3 % Normal 0.9-7.0 [facility] Comment on above: Performed By: #### T SOPHIE, FT3 #### [facility] [address] [place] [address] Dr. Cole Echeverria Erythrocyte distribution width (RBC) [Ratio] 13.0 % Normal 11.0-15.0 [facility] Comment on above: Performed By: #### T SOPHIE, FT3 #### [facility] [address] [place] [address] Dr. Cole Echeverria Hematocrit (Bld) [Volume fraction] 45.7 % Normal 42.0-54.0 [facility] Comment on above: Performed By: #### T SOPHIE, FT3 #### [facility] [address] [place] [address] Dr. Cole Echeverria Hemoglobin (Bld) [Mass/Vol] 14.4 g/dL Normal 14.0-18.0 [facility] Comment on above: Performed By: #### T SOPHIE, FT3 #### [facility] [address] [place] [address] Dr. Cole Echeverria IG # 0.02 10e3/ul Normal 0.00-0.03 [facility] Comment on above: Performed By: #### T SOPHIE, FT3 #### [facility] [address] [place] [address] Dr. Cole Echeverria IG % 0.3 % Normal 0.0-0.5 [facility] Comment on above: Performed By: #### T SOPHIE, FT3 #### [facility] [address] [place], [place] [id number] Dr. Cole Echeverria LYMPH # 1.8 103/ul Normal 1.2-3.8 [facility] Comment on above: Performed By: #### T SH, FT3 #### [facility] [address] [place] [address] Dr. Cole Echeverria Lymphocytes/100 WBC (Bld) 22.6 % Normal 20.5-60.0 [facility] Comment on above: Performed By: #### T SH, FT3 #### [facility] [address] [place] [address] Dr. Cole Echeverria MANUAL DIFF REQ NO Normal [facility] Comment on above: Performed By: #### T SOPHIE, FT3 #### [facility] [address] [place] [address] Dr. Cole Echeverria MCH (RBC) [Entitic mass] 31.1 pg Normal 25.9-34.0 [facility] Comment on above: Performed By: #### T SOPHIE, FT3 #### [facility] [address] [place] [address] Dr. Cole Echeverria MCHC (RBC) [Mass/Vol] 31.5 g/dL Normal 29.9-35.2 [facility] Comment on above: Performed By: #### T SOPHIE, FT3 #### [facility] [address] [place] [address] Dr. Cole Echeverria MCV (RBC) [Entitic vol] 98.7 fL Critically high 80.0-94.0 [facility] Comment on above: Performed By: #### T SOPHIE, FT3 #### [facility] [address] [place] [address] Dr. Cole Echeverria MONO # 0.5 103/ul Normal 0.3-0.8 [facility] Comment on above: Performed By: #### T SOPHIE, FT3 #### [facility] [address] [place] [address] Dr. Cole Echeverria Monocytes/100 WBC (Bld) 5.7 % Normal 1.7-12.0 [facility] Comment on above: Performed By: #### T SOPHIE, FT3 #### [facility] [address] [place] [address] Dr. Cole Echeverria NEUT # 5.4 103/ul Normal 1.4-6.5 [facility] Comment on above: Performed By: #### T SH, FT3 #### [facility] [address] [place] [address] Dr. Cole Echeverria Neutrophils/100 WBC (Bld) 68.7 % Normal 43.0-75.0 [facility] Comment on above: Performed By: #### T SH, FT3 #### [facility] [address] [place] [address] Dr. Cole Echeverria Platelet mean volume (Bld) [Entitic vol] 11.2 fL Normal 9.5-13.5 [facility] Comment on above: Performed By: #### T SOPHIE, FT3 #### [facility] [address] [place] [address] Dr. Cole Echeverria PLT 242 103/ul Normal 150-450 [facility] Comment on above: Performed By: #### T SOPHIE, FT3 #### [facility] [address] [place] [address] Dr. Cole Echeverria RBC 4.63 106/ul Critically low 4.70-6.10 [facility] Comment on above: Performed By: #### T SH, FT3 #### [facility] [address] [place] [address] Dr. Cole Echeverria WBC 7.8 103/ul Normal 4.0-11.0 [facility] Comment on above: Performed By: #### T SH, FT3 #### [facility] [address] [place] [address] Dr. Cole Echeverria FREE T3on 04-05-2022 FREE T3 1.39 pg/mlL Critically low 2.18-3.98 [facility] Comment on above: Performed By: #### B MP, ALT, AST, TSH, FT3, LIPID #### [facility] [address] [place] [address] Dr. Cole Echeverria FREE T4on 04-05-2022 Free T4 [Mass/Vol] 1.47 ng/dL Critically high 0.76-1.46 [facility] Comment on above: Performed By: #### F T4, PSASC #### [facility] [address] [place] [address] Dr. Cole Echeverria GLYCOHEMOGLOBIN A1Con 2021 ADA RECOMMENDATION SEE BELOW Normal [facility] Comment on above: Result Comment: ADA RECOMMENDED LIMIT 4.0 - 6.0 ADA THERAPEUTIC TARGET < 7.0 ACTION SUGGESTED > 7.0 Performed By: #### T SH, FT3 #### [facility] [address] [place] [address] Dr. Cole Echeverria Glucose [Mass/Vol] 103 mg/dL Normal [facility] Comment on above: Performed By: #### T SH, FT3 #### [facility] [address] [place] [address] Dr. Cole Echeverria HbA1c (Bld) [Mass fraction] 5.2 % Normal 4.5-6.2 [facility] Comment on above: Performed By: #### T SH, FT3 #### [facility] [address] [place] [address] Dr. Cole Echeverria LIPID PROFILEon 04-05-2022 CHOL-HDL RATIO NORM SEE BELOW Normal [facility] Comment on above: Result Comment: 3.3 - 4.4 LOW RISK 4.4 - 7.1 AVERAGE RISK 7.1 - 11.0 MODERATE RISK >11.0 HIGH RISK Performed By: #### T SH, FT3 #### [facility] [address] [place] [address] Dr. Cole Echeverria Cholesterol [Mass/Vol] 251 mg/dL Critically high <=200 [facility] Comment on above: Performed By: #### T SH, FT3 #### [facility] [address] [place] [address] Dr. Cole Echeverria Cholesterol in HDL [Mass/Vol] 36 mg/dL Critically low 40-60 [facility] Comment on above: Performed By: #### T SH, FT3 #### [facility] [address] [place] [address] Dr. Cole Echeverria Cholesterol in LDL [Mass/Vol] 189.8 mg/dL Normal [facility] Comment on above: Performed By: #### T SH, FT3 #### [facility] [address] [place] [address] Dr. Cole Echeverria Cholesterol.total/Ch olesterol in HDL [Mass ratio] 7.0 {ratio} Normal [facility] Comment on above: Performed By: #### T SH, FT3 #### [facility] [address] [place] [address] Dr. Cole Echeverria HDL NORMAL > or = 60 mg/dl - LO W CARDIOVASCULAR RISK <40 mg/dl - HIGH CARDIOVASCULAR RISK Normal [facility] Comment on above: Performed By: #### T SH, FT3 #### [facility] [address] [place] [address] Dr. Cole Echeverria LDL CALC NORMAL SEE BELOW Normal [facility] Comment on above: Result Comment: <100 mg/dl OPTIMAL 100 - 129 mg/dl NEAR OR ABOVE OPTIMAL 130 - 159 mg/dl BORDERLINE HIGH 160 - 189 mg/dl HIGH >190 mg/dl VERY HIGH Performed By: #### T SH, FT3 #### [facility] [address] [place] [address] Dr. Cole Echeverria Triglyceride [Mass/Vol] 126 mg/dL Normal <=150 [facility] Comment on above: Performed By: #### T SH, FT3 #### [facility] [address] [place] [address] Dr. Cole Echeverria VLDL CALC 25.2 mg/dL Normal [facility] Comment on above: Performed By: #### T SH, FT3 #### [facility] [address] [place] [address] Dr. Cole Echeverria PROF CHEM 8 (BAS METB)on Anion gap [Moles/Vol] 11.8 mmol/L Normal [facility] Comment on above: Performed By: #### B MP, ALT, AST, TSH, FT3, LIPID #### [facility] [address] [place] [address] Dr. Cole Echeverria Calcium [Mass/Vol] 8.9 mg/dL Normal 8.5-10.1 [facility] Comment on above: Performed By: #### B MP, ALT, AST, TSH, FT3, LIPID #### [facility] [address] [address] [address] Cole Echeverria Chloride [Moles/Vol] 104 mmol/L Normal 98-107 [facility] Comment on above: Performed By: #### B MP, ALT, AST, TSH, FT3, LIPID #### [facility] [address] [address] [address] Cole Echeverria CO2 [Moles/Vol] 29.9 mmol/L Normal 21.0-32.0 [facility] Comment on above: Performed By: #### B MP, ALT, AST, TSH, FT3, LIPID #### [facility] [address] [address] [address] Cole Echeverria Creatinine [Mass/Vol] 1.35 mg/dL Critically high 0.70-1.30 [facility] Comment on above: Performed By: #### B MP, ALT, AST, TSH, FT3, LIPID #### [facility] [address] [address] [address] Cole Echeverria EGFR-AF BRUNEIAN >60 Normal >=60 [facility] Comment on above: Performed By: #### B MP, ALT, AST, TSH, FT3, LIPID #### [facility] [address] [address] [address] Cole Echeverria EGFR-NON AF BRUNEIAN 52 mL/min/1.73m2 Critically low >=60 [facility] Comment on above: Performed By: #### B MP, ALT, AST, TSH, FT3, LIPID #### [facility] [address] [address] [address] Cole Echeverria Glucose [Mass/Vol] 91 mg/dL Normal 74-106 [facility] Comment on above: Performed By: #### B MP, ALT, AST, TSH, FT3, LIPID #### [facility] [address] [address] [address] Cole Echeverria Potassium [Moles/Vol] 4.7 mmol/L Normal 3.5-5.1 [facility] Comment on above: Performed By: #### B MP, ALT, AST, TSH, FT3, LIPID #### [facility] [address] [place] [address] Dr. Cole Echeverria Sodium [Moles/Vol] 141 mmol/L Normal 136-145 [facility] Comment on above: Performed By: #### B MP, ALT, AST, TSH, FT3, LIPID #### [facility] [address] [place] [address] Dr. Cole Echeverria Urea nitrogen [Mass/Vol] 35.0 mg/dL Critically high 7.0-18.0 [facility] Comment on above: Performed By: #### B MP, ALT, AST, TSH, FT3, LIPID #### [facility] [address] [place] [address] Dr. Cole Echeverria Urea nitrogen/Creatinine [Mass ratio] 25.9 mg/mg Normal [facility] Comment on above: Performed By: #### B MP, ALT, AST, TSH, FT3, LIPID #### [facility] [address] [place] [address] Dr. Cole Alanis 04-05-2022 AST [Catalytic activity/Vol] 31 U/L Normal 15-37 [facility] Comment on above: Performed By: #### T SH, FT3 #### [facility] [address] [place] [address] Dr. Cole CESARPTon 04-05-2022 ALT [Catalytic activity/Vol] 26 U/L Normal 16-63 [facility] Comment on above: Performed By: #### B MP, ALT, AST, TSH, FT3, LIPID #### [facility] [address] [place] [address] Dr. Cole Echeverria TSHon 04-05-2022 TSH 0.944 uIU/mL Normal 0.358-3.740 [facility] Comment on above: Performed By: #### B MP, ALT, AST, TSH, FT3, LIPID #### [facility] [address] [place] [address] Dr. Cole Echeverria TSH RANGE SEE BELOW Normal [facility] Comment on above: Result Comment: <0.3 4 UIU/ml HYPERTHYROID 0.34-5.60 UIU/ml EUTHYROID >5.60 UIU/ml HYPOTHYROID Performed By: #### B MP, ALT, AST, TSH, FT3, LIPID #### [facility] [address] [address] [address] Cole Echeverria US SCROTUMon 02-27-2022 US [...] ANETTE GAMBOA Date: 2022-02-27 08:15 Normal [facility] Vital Signs Date Time Vital Sign Value Performing Clinician Facility 01-17-2024 11:49-0400 Body height 180.3 cm Gumaro Treviño DO Work Phone: [facility] 01-17-2024 11:49-040 Body mass index (BMI) [Ratio] 51.33 kg/m2 Gumaro Treviño DO Work Phone: [facility] 01-17-2024 11:49-040 Body weight 166.92 kg Gumaro Treviño DO Work Phone: [facility] 01-17-2024 11:49-040 Diastolic blood pressure 86 mm[Hg] Gumaro Treviño DO Work Phone: [facility] 01-17-2024 11:49-0400 Heart rate 68 /min Gumaro Treviño DO Work Phone: [facility] 01-17-2024 11:49-0400 Systolic blood pressure 140 mm[Hg] Gumaro Treviño DO Work Phone: [facility] 12-06-2023 14:00-0500 Body height 180.34 cm Oscar Walters Other [employer] Other 12-06-2023 14:00-0500 Body mass index (BMI) [Ratio] 51.52 kg/m2 Oscar Sanzharitha Other [facility] Other 12-06-2023 14:00-0500 Body temperature 97.7 [degF] Oscar Selena Other [facility] Other 12-06-2023 14:00-0500 Body weight 167.56 kg Oscar Walters Other [facility] Other 12-06-2023 14:00-0500 Diastolic blood pressure 81 mm[Hg] Oscar Sanzharitha Other [facility] Other 12-06-2023 14:00-0500 Respiratory rate 20 /min Oscar Sanzharitha Other [facility] Other 12-06-2023 14:00-0500 SaO2% (BldA) [Mass fraction] 95 % Oscar Sanzharitha Other [facility] Other 12-06-2023 14:00-0500 Systolic blood pressure 136 mm[Hg] Oscar Selena Other [facility] Other 01-04-2023 11:33-0500 Body height 180.34 cm Jorge A Naderer Work Phone: [facility] 250 DO Work Phone: 01-04-2023 11:33-0500 Body mass index (BMI) [Ratio] 49.51 kg/m2 Jorge A Naderer Work Phone: [facility] 250 DO Work Phone: 01-04-2023 11:33-0500 Body surface area Derived from formula 2.69 m2 Jorge A Naderer Work Phone: [facility] 250 DO Work Phone: 01-04-2023 11:33-0500 Body weight 161.03 kg Jorge A Naderer Work Phone: [facility] 250 DO Work Phone: 01-04-2023 11:33-0500 Diastolic blood pressure 70 mm[Hg] Jorge A Naderer Work Phone: [facility] 250 DO Work Phone: 01-04-2023 11:33-0500 Heart rate 64 /min Jorge A Naderer Work Phone: [facility] 250 DO Work Phone: 01-04-2023 11:33-0500 Systolic blood pressure 136 mm[Hg] Jorge A Naderer Work Phone: [facility] 250 DO Work Phone: 10-12-2022 14:00-0500 Body height 180.34 cm Oscar Walters Other [facility] Other 10-12-2022 14:00-0500 Body mass index (BMI) [Ratio] 49.67 kg/m2 Oscar Walters Other [facility] [facility] Other 10-12-2022 14:00-0500 Body temperature 96.3 [degF] Oscar Walters Other [facility] [facility] Other 10-12-2022 14:00-0500 Body weight 161.57 kg Oscar Walters Other [facility] [facility] Other 10-12-2022 14:00-0500 Diastolic blood pressure 73 mm[Hg] Oscar Walters Other [facility] [facility] Other 10-12-2022 14:00-0500 Respiratory rate 20 /min Oscar Walters Other [facility] [facility] Other 10-12-2022 14:00-0500 SaO2% (BldA) [Mass fraction] 95 % Oscar Walters Other [facility] Other 10-12-2022 14:00-0500 Systolic blood pressure 126 mm[Hg] Oscar Walters Other [facility] [facility] Other 08-31-2022 17:40-0400 Body height 180.34 cm Oscar Walters Other [facility] [facility] Other 08-31-2022 17:40-0400 Body mass index (BMI) [Ratio] 48.98 kg/m2 Oscar Walters Other [facility] Other 08-31-2022 17:40-0400 Body temperature 96.4 [degF] Oscar Walters Other [facility] [facility] Other 08-31-2022 17:40-0400 Body weight 159.3 kg Oscar Walters Other [facility] [facility] Other 08-31-2022 17:40-0400 Diastolic blood pressure 82 mm[Hg] Oscar Walters Other [facility] [facility] Other 08-31-2022 17:40-0400 Respiratory rate 20 /min Oscar Walters Other [facility] [facility] Other 08-31-2022 17:40-0400 SaO2% (BldA) [Mass fraction] 97 % Oscar Walters Other [facility] Other 08-31-2022 17:40-0400 Systolic blood pressure 144 mm[Hg] Oscar Walters Other [facility] [facility] Other 07-12-2022 11:36-0400 Body height 180.34 cm Jorge Guerrero Naderer Work Phone: [employer] 250 DO Work Phone: 07-12-2022 11:36-0400 Body mass index (BMI) [Ratio] 51.05 kg/m2 Jorge Masters Naderer Work Phone: [facility] [employer] 250 DO Work Phone: 07-12-2022 11:36-0400 Body surface area Derived from formula 2.73 m2 Jorge Masters Naderer Work Phone: [employer] 250 DO Work Phone: 07-12-2022 11:36-0400 Body weight 166.02 kg Jorge Masters Naderer Work Phone: [employer] 250 DO Work Phone: 07-12-2022 11:36-0400 Diastolic blood pressure 70 mm[Hg] Jorge Masters Naderer Work Phone: [facility] 250 DO Work Phone: 07-12-2022 11:36-0400 Heart rate 100 /min Jorge Masters Naderer Work Phone: [facility] 250 DO Work Phone: 07-12-2022 11:36-0400 Systolic blood pressure 110 mm[Hg] Jorge Masters Naderer Work Phone: [facility] 250 DO Work Phone: 06-22-2022 00:00-0400 65 1 Jorge A Naderer Work Phone: [facility] 250 DO Work Phone: Comment on above: [id number] Encounters Encounter Date Encounter Type Care Provider Facility Start: 06-02-2024 End: 06-02-2024 ambulatory MARIE SALCEDO Not Available Start: 05-27-2024 End: 05-27-2024 ambulatory JORGE NADERER Not Available Start: 02-25-2024 End: 02-25-2024 ambulatory JORGE NADERER Not Available Start: 01-17-2024 End: 01-17-2024 ambulatory [facility] Ambulatory Start: 01-17-2024 End: 01-17-2024 Office outpatient visit 15 minutes [facility] DO Work Phone: [facility] Comment on above: Deep vein thrombosis (DVT) of distal vein of lower extremity, unspecified chronicity, unspecified laterality ([facility]); Pulmonary embolism, unspecified chronicity, unspecified pulmonary embolism type, unspecified whether acute cor pulmonale present ([facility]); Essential hypertension; BMI 50.0-59.9, adult (CMS/HCC); Chronic [...] 12-06-2023 End: 12-06-2023 ambulatory Oscar Sanzharitha Other [facility] Other Start: 12-06-2023 Office outpatient visit 15 [...] visit 25 minutes Jorge Camejo Work Phone: [facility] 250 DO Work Phone: Start: 01-04-2023 ambulatory Gumaro Treviño Facilit y: Start: 12-07-2022 End: 12-08-[address] JORGE CAMEJO Facility:[facility] Start: 12-04-2022 End: 12-04-2022 ambulatory Oscar Walters Other [facility] Other Start: 12-04-2022 Telephone encounter Oscar Sanzharitha [facility] Start: 10-12-2022 End: 10-12-2022 ambulatory Oscar Sanzharitha Other [facility] Other Start: 10-12-2022 Office outpatient visit 25 minutes Oscar Sanzharitha [facility] Start: 10-03-2022 End: 10-04-[address] JORGE CAMEJO Facility:[facility] Start: 09-14-2022 End: 09-15-[address] JORGE CAMEJO Facility:[facility] Start: 09-04-2022 End: 09-04-2022 ambulatory Oscar Walters Other [facility] [employer] Other Start: 09-04-2022 Telephone encounter Oscar Walters [facility] Start: 08-31-2022 End: 08-31-2022 ambulatory Oscar Walters Other [facility] [employer] Other Start: 08-31-2022 Office outpatient visit 25 minutes Oscar Walters [facility] Start: 07-12-2022 End: 07-13-[address] GUMARO TREVIÑO Facility:[facility] Start: 07-12-2022 Office outpatient visit 40 minutes Jorge Camejo Work Phone: [facility] 250 DO Work Phone: Start: 07-12-2022 ambulatory Gumaro Treviño Facilit y:[id number] Start: 06-24-2022 ambulatory Gumaro Treviño Facilit y:[id number] Start: 06-23-2022 ambulatory Gumaro Treviño Facilit y:[facility] Start: 06-23-2022 ambulatory Gumaro Treviño Facilit y:[id number] Start: 06-23-[address] Jorge Camejo Facility:[id number] Start: 06-23-2022 End: 06-24-2022 Evaluation and management of inpatient Patel Ugarte Facility:[facility] Start: 06-22-2022 End: 06-22-[address] [...] 07-25-2018 End: 07-26-2018 Patient encounter DEFAULT PHYSICIAN Facility:[facility] Procedures Date Procedure Procedure Detail Performing Clinician Start: 12-12-2023 Injection 1 tendon sheath/ligament aponeurosis Jr. Marie Palmer DO Work Phone: Start: 04-05-[address] JORGE HILTON Comment on above: Performed By: #### F T4, PSASC #### [facility] [address] [place] [address] Dr. Cole Echeverria Arthroscopy of knee Jorge hilton Work Phone: Colonoscopy Jorge Camejo Work Phone: Removal of thrombus Jorge hilton Work Phone: Plan of Treatment Date Care Activity Detail Author Start: 02-25-2024 End: 02-25-2024 Patient encounter procedure 02/25/2024 1:00 PM EDT Office Visit [facility] [address] [place] [id number] Jorge Camejo MD [address] [place] [id number] [facility] Start: 01-17-2024 FUV, Provider: Gumaro Treviño, Status: Pen, Time: 11:20 AM FUV, Provider: Gumaro Treviño, Status: Pen, Time: 11:20 AM [facility] 250 DO Work Phone: Start: 01-09-2024 End: 01-09-2024 Patient encounter procedure 01/09/2024 2:00 PM EST Office Visit [facility] [address] [place] [id number] Jr. Marie Palmer, DO [address] [place], [place] [id number] [facility] Start: 12-12-2023 End: 12-12-2023 Patient encounter procedure 12/12/2023 2:00 PM EST Office Visit [facility] [address] [place] [phone] Jr. Marie Palmer, DO [address] [facility] [address] [place] [address] [facility] Start: 07-06-2023 COVID-19 Vaccine ( season) COVID-19 Vaccine ( season) [facility] Start: 01-11-2023 FUV, Provider: Gumaro Treviño, Status: Pen, Time: 11:10 AM FUV, Provider: Gumaro Treviño, Status: Pen, Time: 11:10 AM [facility] [employer] 250 DO Work Phone: Start: 08-05-2016 Pneumococcal Vaccine: 65+ Years (2 - PCV) Pneumococcal Vaccine: 65+ Years (2 - PCV) [facility] Start: 1996 Zoster Vaccines (1 of 2) Zoster Vaccines (1 of 2) [facility] Start: 1968 DTaP/Tdap/Td Vaccines (1 - Tdap) DTaP/Tdap/Td Vaccines (1 - Tdap) [facility] Start: 1964 Diabetes mellitus screening Diabetes Screening [facility] Start: 1964 Hepatitis C screening Hepatitis C Screening [facility] Start: 1946 Lipid panel Lipid Panel [facility] Start: 1946 Medicare Annual Wellness (AWV) Medicare Annual Wellness (AWV) [facility] Start: 1946 Medicare Annual Wellness Visit Medicare Annual Wellness Visit (AWV) [facility] Start: 1946 Thyroid stimulating hormone measurement TSH Level [facility] Immunizations Immunization Date Immunization Notes Care Provider Fa david 10-01-2022 Fluad Quadrivalent 0 .5 ML Intramuscular Prefilled Syringe Jorge Camejo Work Phone: [facility] 250 DO Work Phone: 10-19-2021 Pfizer-BioNTech COVI D-19 Vacc 30 MCG/0.3ML Intramuscular Suspension Jorge Masters Naderer Work Phone: [facility] 07-06-2021 influenza, seasonal, injectable Jorge Masters Naderer Work Phone: [facility] 250 DO Work Phone: Comment on above: Series: 01-11-2021 Moderna COVID-19 Vac cine 100 MCG/0.5ML Intramuscular Suspension Jorge Masters Naderer Work Phone: [facility] 250 DO Work Phone: 12-14-2020 Moderna COVID-19 Vac cine 100 MCG/0.5ML Intramuscular Suspension Jorge Masters Naderer Work Phone: [facility] 250 DO Work Phone: 08-05-2015 pneumococcal polysaccharide vaccine, 23 valent Jorge Coatsr Work Phone: [facility] Payers Date Payer Category Payer Unknown 2022 Self-pay 2011 Medicare [id number] 1959 Medicare [id number] 2.1 [id number] 1959 Medicare [id number] 1959 Unknown [id number] 2. [id number] 1946 Unknown [id number] 2.16. 840.1.514994.3.579.2.356 1946 Unknown [id number] 2.16. 840.1.607993.3.579.2.356 1946 Unknown [id number] 2.16. 840.1.211622.3.579.2.356 1946 Unknown [id number] 2.16. 840.1.981737.3.579.2.356 1946 Unknown [id number] 2.16. 840.1.317965.3.579.2.356 1946 Unknown [id number] 2.16.84 0.1.931110.3.579.2.593 1946 Unknown [id number] 2.16.84 0.1.153654.3.579.2.593 1946 Unknown [id number] 2.16.84 0.1.052208.3.579.2.593 1946 Unknown [id number] 2.16.84 0.1.615037.3.579.2.593 1946 Unknown [id number] 2.16.84 0.1.598938.3.579.2.593 1946 Unknown [id number] 2.16.84 0.1.976300.3.579.2.593 1946 Unknown [id number] 2.16.84 0.1.038464.3.579.2.593 1946 Unknown [id number] 2.16.84 0.1.024221.3.579.2.593 1946 Unknown [id number] 2.16.84 0.1.027104.3.579.2.593 1946 Unknown [id number] 2.16.84 0.1.069635.3.579.2.593 1946 Unknown [id number] 2.16.84 0.1.829331.3.579.2.593 1946 Unknown [id number] 2.16.84 0.1.397486.3.579.2.593 1946 Unknown [id number] 2.16.8 40.1.406350.3.579.2.1244 1946 Unknown [id number] 2.16.84 0.1.080933.3.579.2.1259 1946 Unknown [id number] 2.16.84 0.1.851977.3.579.2.1259 1946 Unknown [id number] 2.16.84 0.1.020129.3.579.2.1259 1946 Unknown [id number] 2.16.84 0.1.095816.3.579.2.1259 1946 Unknown [id number] 2.16.84 0.1.523053.3.579.2.1259 1946 Unknown [id number] 2.16.84 0.1.950600.3.579.2.1259 1946 Unknown [id number] 2.16.84 0.1.673737.3.579.2.9 1946 Unknown [id number] 2.16.840 .1.423716.3.579.2.1259 Unknown [id number] 2.16.8 40.1.246940.3.579.2.531 Social History Date Type Detail Facility Start: 11-20-2023 End: 01-17-2024 No alcohol use No alcohol use [facility] Start: 11-19-2023 End: 01-17-2024 Sex Assigned At [facility] Start: 11-20-2023 End: 01-17-2024 Tobacco smoking status [facility] Ex-smoker [facility] End: 11-05-1989 History [...] to any clubs or organizations such as christianity groups, unions, fraternal or athletic groups, or [...] Start: 01-17-2024 Alcohol intake Lifetime non-drinker (finding) [facility] Work Phone: Start: 01-07-2024 End: 01-17-2024 Exposure to SARS-CoV-2 (event) Not sure [facility] NEGATED: Highlighted row Denies Caffeine use Denies Caffeine use -[facility] 250 DO Work Phone: Clinical Notes 02-16-2022 [...] discussion and plan. documented in this encounter [facility] Work Phone: 01-17-2024 Instructions Krystle Husain [...] 30: 153.4 Lbs documented in this encounter [facility] Work Phone: 12-12-2023 History of Present [...] Jr., DO documented in this encounter [facility] 12-06-2023 Evaluation note Encounter Date Diagnosis Assessment [...] with Xarelto. Shortness of breath has improved. [facility] Other 03-23-2023 NoteCONSULTATION CONSULTATION DATE: 01/25/2023 TO: [...] this imaging study or sooner if needed.[id number] Evaluation note* Encounter Date Diagnosis Assessment Notes [...] provoked by travel, COVID 19 and immobility. [facility] Other 11-10-2022 NoteCONSULTATION CONSULTATION DATE: 09/14/2022 HISTORY [...] indicated, and patient agrees with this plan.[facility] [id number] Evaluation note* Encounter Date Diagnosis Assessment Notes [...] pulmonary if shortness of breath is worse. [facility] Other 08-11-2022 NoteCONSULTATION CONSULTATION DATE: 06/15/2022 HISTORY [...] heel. Activities such as standing, walking and early childhood hours are most painful. Current medications include [...] him up in the clinic post procedure.[facility] [id number] NoteCONSULTATION CONSULTATION DATE: 03/30/2022 HISTORY OF PRESENT [...] months' time unless otherwise indicated. [facility] Signed and Approved by: DOMO SANCHEZ . 04/06/2022 16:04:00[facility]04-14-2022 NoteCONSULTATION PAIN MANAGEMENT CONSULTATION HISTORY OF PRESENT [...] and all questions were answered. [facility] Signed and Approved by: DOMO SANCHEZ . 02/23/2022 13:58:00[facility] HospitalEvaluation noteNo [facility] [employer] Other Evaluation note* Diagnosis Acquired trigger finger of right little finger- Primary documented in this encounter [facility] HealthcareEvaluation note* Diagnosis Deep vein thrombosis (DVT) of distal vein of lower extremity, unspecified chronicity, unspecified laterality (CMS/HCC) Pulmonary embolism, unspecified chronicity, unspecified pulmonary embolism type, unspecified whether acute cor pulmonale present ([facility]) Essential hypertension Unspecified essential hypertension BMI 50.0-59.9, adult ([facility]) Chronic kidney disease, unspecified CKD stage Former smoker Personal history of tobacco use, presenting hazards to health documented in this encounter [facility] Work Phone: History general Narrative - Reported* Type Description Date Medical History ACUTE KIDNEY INJURY Medical History CHF (CONGESTIVE HEART FAILURE) Medical History PULMONARY EMBOLISM ASSOCIATED WI TH COVID 19 Medical History DVT (DEEP VENOUS THROMBOSIS) Surgical History KNEE SURGERY LEFT Surgical History KNEE SURGERY RIGHT Hospitalization History ACUTE KIDNEY INJ URY, CHF, PULMONARY EMBOLISM ASSOCIATED WITH COVID 19 06/22/2022 [facility] [employer] Other Summary Purpose Family History No Family [...] Directives Records Found Chief Complaint * 07/05/2022 [facility] [place] SP EKOS. * RAFAEL CABRAL is [...] Inj/Asp: R Jr. Marie Alonso, DO [address] [facility] [address] [place] [address] Referral ID Status Reason Start Date Expiration Date V isits Requested Visits Authorized [id number] Pending Review 12/12/2023 06/09/2024 1 1 Additional Source Comments (unrecognized sect ion and content) No Status Records FoundNo Status Records FoundNo Status Records FoundNo Status Records FoundNo Status Records FoundNo Status Records FoundNo Status Records Found INFORMATION SOURCE (unrecogn ized section and content) DATE CREATED AUTHOR 08/22/2018 [facility] DATE CREATED AUTHOR AUTHOR'S ORGANIZ ATION 12/09/2022 [facility] DATE CREATED AUTHOR AUTHOR'S ORGANIZ ATION 01/05/2023 [facility] DATE CREATED AUTHOR AUTHOR'S ORGANIZ ATION 01/06/2023 [employer] DATE CREATED AUTHOR AUTHOR'S ORGANIZ ATION 01/28/2023 [facility] DATE CREATED AUTHOR AUTHOR'S ORGANIZ ATION 01/18/2024 [facility] DATE CREATED AUTHOR AUTHOR'S ORGANIZ ATION 06/04/2024 [facility] Special[facility] EPIC REASON FOR VISIT (unrecogniz ed section and content) Reason Comments Pain Reason Comments Annual Exam 1yr Care Teams (unrecognized sec tion and content) Director Customer Relationship Specialty Start Date End Date Jorge Camejo MD [address] [place] [address] PCP - General Family Medicine 12/06/23 Director Customer Relationship Specialty Start Date End Date Jorge Camejo MD [address] [place] [address] PCP - General Family Medicine 12/06/23 Director Customer Relationship Specialty Start Date End Date Jorge Camejo MD [address] [place] [address] PCP - General Family Medicine 01/17/24 FOR [...] BE BASED ON THE PRIMARY CLINICAL RECORDS. [facility] [employer] [facility]. provides no warranty or guarantee of the accuracy or completeness of information in this document.
--- NOTE | 2024-07-24 13:32 | P.CN_ITS ---
Consult Note: HPI Data of Consult Patient: known to practice within the last 3 years Requesting Physician: Althea Haney NP Primary Care Provider: Jorge Ortez MD Consult Narrative Reason for consult: f/u Narrative: Eleuterio Cabral a pleasant 77 year old male presents for evaluation and management of chronic pain in low back buttocks and groin, as well as left knee pain. Today rating pain 3-4/10 in left knee deep ache contasnt, worse with weight bearing, standing, walking, activity. Patient has been doing well on tramadol and lyrica, without side effects. Has been decreasing tramadol to TID- QID PRN, most often TID for moderate to severe pain. Continues to follow with Dr Palmer for left knee pain and injections. cc:: CC: Althea Haney NP Review of Systems ROS Status of ROS 10 or more systems reviewed and unremark able except as noted in history and below Musculoskeletal Reports: back pain and joint pain Meds Home Medications and Allergies Home Medications ?Medication ?Instructions ?Recorded ?Confirmed ?Type furosemide 40 mg tablet 40 mg PO DAILY 05/03/23 05/03/23 History levothyroxine 150 mcg capsule 150 mcg PO DAILY 05/03/23 05/03/23 History pregabalin 75 mg capsule (Lyrica) 75 mg PO BID 05/03/23 05/03/23 History rivaroxaban 20 mg tablet (Xarelto) 20 mg PO DAILY 05/03/23 05/03/23 History spironolactone 25 mg tablet 25 mg PO BID 05/03/23 05/03/23 History tramadol 50 mg tablet 50 mg PO BID 05/03/23 05/03/23 History tramadol 50 mg tablet 100 mg (2 x 50 mg) PO BID PRN pain 08/27/23 Rx #120 tabs tramadol 50 mg tablet 50 mg PO BID PRN pain #120 tabs 12/20/23 Rx tramadol 50 mg tablet 50 mg PO QID PRN pain #105 tabs 03/03/24 Rx tramadol 50 mg tablet 100 mg (2 x 50 mg) PO BID PRN pain 04/14/24 Rx #105 tabs tramadol 50 mg tablet See Rx Instructions .Route 05/19/24 Rx .COMPLEX PRN pain #105 tabs Allergies Allergy/AdvReac Type Severity Reaction Status Date / Time No Known Drug Allergies Allergy Verified 05/03/23 15:29 Exam Constitutional Documenting provider has reviewed patient's vital signs: yes Common normals: no apparent distress, oriented x3, healthy appearing, alert and well nourished General appearance: cooperative Nutritional appearance: obese HENMT Common normals: normocephalic, hearing grossly normal bilaterally and moist oral mucous membranes Head and scalp: normocephalic Eye Common normals: PERRL Pupil: PERRL Neck & C-Spine Common normals: full ROM General: normal visual inspection Chest Common normals: inspection of chest normal Respiratory Common normals: normal respiratory effort, no retractions and no use of accessory muscles Back & Pelvis Lumbar spine/lower back: ROM limited, pain with ROM and straight leg raise ne gative bilaterally Extremity Common normals: normal to inspection Left lower extremity: knee joint Other: left knee enlarged diameter, crepitus noted, pain with medial and lateral stress testing, mild edema no instability Neuro Common normals: oriented x3, CN's II-XII intact bilaterally, moves all extremities, no focal motor deficits, no sensory deficits noted and deep tendon reflexes 2+ bilaterally Sensorium/orientation: alert Gait (neuro): antalgic and assistive device used walker Motor exam: strength 5/5 throughout and no movement abnormalities noted Psych Common normals: mental status grossly normal, thought process normal, cooperative, affect normal, speech normal and activity/motor behavior normal Speech: normal speech Thought process: normal thought process Results Additional Findings Additional findings: If on a controlled substance or opioids, I have checked an [place] report on this patient and there are no aberrancies noted in the prescribing history.??If on a controlled substance or opioid a drug screen was completed and reviewed within the last year, and if there has not been a drug screen completed we ordered one today to monitor higher risk, state monitored pain medication use. As part of providing excellent, safe, comprehensive care, the following was completed at our patient's visit: 1. A medication reconciliation and review to ensure accurate knowledge of current/active medications, including asking our patients to inform us about any [id number] medications or herbal remedies/nutritional supplements/alternative remedies. 2. A review to specifically ensure our patients have had annual screening for screening for depression, screening for tobacco use, and screening for unhealthy alcohol use. For concerning screenings had a discussion with the patient, provided patient education, and recommended follow-up with primary care provider when appropriate. If patient noted with a risk of falling, they received education on strength, gait, and balance training to prevent future risk of falling. Assessment and Plan Assessment and Plan (1) Lumbar spondylosis: (2) Lumbar stenosis: (3) Encounter for long-term opiate analgesic use: Assessment and Plan: I feel these medications are improving the patient's quality of life and allow them to tolerate activities of daily living as well as participate in recreational activity.? The patient does not report intolerable side effects. The patient is NOT opioid naive and non-pharmacologic and non-opioid treatment has failed to significantly relieve the patient's pain and improve functionality. The patient has a diagnosis that is related to a somatic or visc eral pain etiology. ? ?? I reviewed with the patient the potential risks and side effects with the use of? opioid medications including but not limited to respiratory depression,? sedation, and even . I verified the patient has access to naloxone should? these effects occur. I advised the patient to avoid the use of any other? sedation substances including alcohol, THC, and benzodiazepines while? taking opioid medications due to the risk of compounding side effects and? detrimental outcomes. I reviewed the [employer], pain treatment agreement, urine? drug screen, and opioid start talking forms. The patient was advised to let? their family know they had Naloxone in case they would need to administer? the medication.? ?? A drug screen was completed within the last year, and no aberrancies were noted regarding their use of controlled substances. The patient understands they are subject to the terms and conditions of the pain contract that they have signed. ? ?? I have checked an [place] report on this patient today and there are no aberrancies noted in the prescribing history.? (4) Osteoarthritis of left knee: (5) Left knee pain: (6) Obesity: Assessment and Plan: The patient was counseled that proper dietary changes and consistent participation in a home exercise plan can lead to weight loss. Weight loss can help to improve functionality in patients with chronic pain.? Plan pain well controlled, decrease tramadol 50mg BID-TID PRN moderate to severe pain 80 tabs/month continues to have functional improvement and pain relief as a result of injection therapy and medication management, declining additional workup continue pregabalin 75mg BID through ordering provider f/u 3 months, sooner if needed
== END 2024-07-24 12:59 | disposition home or self-care (01) ==
PROVIDERS: PCP Family Medicine; Visit Provider Nurse Practitioner
DX: M47.816 Spondylosis without myelopathy or radiculopathy, lumbar region (principal); M48.061 Spinal stenosis, lumbar region without neurogenic claudication; Z79.891 Long term (current) use of opiate analgesic; M17.12 Unilateral primary osteoarthritis, left knee; M25.562 Pain in left knee
CPT/HCPCS: G0463

== ENCOUNTER 2024-07-28 14:03 | Outpatient (OUT) | payer MEDICARE, OTHER, SELFPAY | END 2024-07-28 14:04 | disposition home or self-care (01) | LOC: WC 14:03 | PROVIDERS: PCP Family Medicine; Visit Provider Physician Assistant | DX: I87.312 Chronic venous hypertension (idiopathic) with ulcer of left lower extremity (principal); L97.822 Non-pressure chronic ulcer of other part of left lower leg with fat layer exposed | CPT/HCPCS: G0463 ==

== ENCOUNTER 2024-08-19 15:43 | Outpatient (OUT) | payer MEDICARE, OTHER, SELFPAY ==
--- OUTSIDE RECORDS SUMMARY | 2024-08-19 15:53 | XMS_ITS | CCD ---
Author Organization [facility] Care Team Providers Care Public Relations Supervisor Name Role Phone PHYSICIAN, DEFAULT Unavailable Unavailable [...] Gagnon Attending Unavailable MCLEAN ., DR HUNTER Gagnno Admitting Unavailable SANCHEZ ., DOMO Consulting Unavailable [...] Unavailable NADERER, DR JORGE Masters Attending Unavailable INOLA, DR ANETTE Torrez Consulting Unavailable NADERER, DR [...] Drug Class(es) Dates Sig (Normalized) Sig (Original) [id number] 200 actuat albuterol 0.09 mg/actuat metered dose [...] (2 sources) Patient encounter status; Translations: [Other technology trainer (current) drug therapy] Onset: 11-26-2023 11-26-2023 Episodic [...] Translations: [Body mass index (BMI) 50.0-59.9, adult ([facility])] Onset: 01-17-2024 Chronic Other screening [...] Onset: 10-03-2022 Other aftercare (1 source) Other skilled nursing (current) drug therapy; Translations: [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 [facility] Office Visit (Cardiology)on 01-04-2023 Follow-up visit [...] Recorded: 04Jan2023 11:33AM Heart Rate64, L Radial Loffzmzx255, LUE, Sitting Lgfnoarzk59, LUE, Sitting Height5 ft 11 in Monorb038 lb BMI Wckrtvuxug85.51 kg/m2 BSA Calculated2.69 Tobacco Useb) No PHQ-2 [...] Jan 04 2023 12:41PM EST (Author) Normal [facility] Tobacco Screening.on 023 Adult depression screening assessment No [facility] 250 DO Work Phone: Fall risk assessment a) No falls within the last year [facility] 250 DO Work Phone: Tobacco use status CP b) No [facility] 250 DO Work Phone: FREE T3on 12-07-2022 FREE T3 2.63 pg/mlL Normal 2.18-3.[address] [facility] Comment on above: Performed By: #### T , FT3 #### [facility] [address] [place] [address] Dr. Cole Echeverria FREE T4on 12-07-2022 Free T4 [Mass/Vol] 1.44 ng/dL Normal 0.76-1.46 [facility] Comment on above: Performed By: #### T SH, FT3 #### [facility] [address] [place] [address] Dr. Cole Echeverria HEMOGLOBINon 12-07-2022 Hemoglobin (Bld) [Mass/Vol] 14.0 g/dL Normal 14.0-18.0 [facility] Comment on above: Performed By: #### F T4, PSASC #### [facility] [address] [place] [address] Dr. Cole Echeverria TSHon 12-07-2022 TSH 0.710 uIU/mL Normal 0.358-3.740 [facility] Comment on above: Performed By: #### T SH, FT3 #### [facility] [address] [place] [address] Dr. Cole Echeverria PTH INTACTon 10-04-2022 PTH, Intact 13 pg/mL Critically low 15-65 [facility] Comment on above: Performed By: #### P THINT #### [facility] [address] [place] [address] Dr. Cole Echeverria HEMOGRAM AND PLATELon 2021 Hematocrit (Bld) [Volume fraction] 44.9 % Normal 42.0-54.0 [facility] Comment on above: Performed By: #### F T4, PSASC #### [facility] [address] [place] [address] Dr. Cole Echeverria Hemoglobin (Bld) [Mass/Vol] 14.4 g/dL Normal 14.0-18.0 [facility] Comment on above: Performed By: #### F T4, PSASC #### [facility] [address] [place] [address] Dr. Cole Echeverria MCH (RBC) [Entitic mass] 27.0 pg Normal 25.9-34.0 [facility] Comment on above: Performed By: #### F T4, PSASC #### [facility] [address] [place] [address] Dr. Cole Echeverria MCHC (RBC) [Mass/Vol] 32.1 g/dL Normal 29.9-35.2 [facility] Comment on above: Performed By: #### F T4, PSASC #### [facility] [address] [place] [address] Dr. Cole Echeverria MCV (RBC) [Entitic vol] 84.1 fL Normal 80.0-94.0 [facility] Comment on above: Performed By: #### F T4, PSASC #### [facility] [address] [place] [address] Dr. Cole Echeverria PLT 330 103/ul Normal 150-450 [facility] Comment on above: Performed By: #### F T4, PSASC #### [facility] [address] [place] [address] Dr. Cole Echeverria RBC 5.34 106/ul Normal 4.70-6.10 [facility] Comment on above: Performed By: #### F T4, PSASC #### [facility] [address] [place] [address] Dr. Cole Echeverria WBC 8.7 103/ul Normal 4.0-11.0 [facility] Comment on above: Performed By: #### F T4, PSASC #### [facility] [address] [place] [address] Dr. Cole Echeverria PHOSPHORUSon 10-03-2022 Phosphate [Mass/Vol] 3.8 mg/dL Normal 2.6-4.7 [facility] Comment on above: Performed By: #### T SH, FT3 #### [facility] [address] [place] [address] Dr. Cole Echeverria PROF 14(COMP METB)on 022 Albumin [Mass/Vol] 3.1 g/dL Critically low 3.4-5.[address] [facility] Comment on above: Performed By: #### T SH, FT3 #### [facility] [address] [place] [address] Dr. Cole Echeverria Albumin/Globulin [Mass ratio] 0.6 {ratio} Normal [facility] Comment on above: Performed By: #### T SH, FT3 #### [facility] [address] [place] [address] Dr. Cole Echeverria ALP [Catalytic activity/Vol] 94 U/L Normal 46-116 [facility] Comment on above: Performed By: #### T SH, FT3 #### [facility] [address] [place] [address] Dr. Cole Echeverria ALT [Catalytic activity/Vol] 11 U/L Critically low 16-63 [facility] Comment on above: Performed By: #### T SH, FT3 #### [facility] [address] [place] [address] Dr. Cole Echeverria Anion gap [Moles/Vol] 9.3 mmol/L Normal [facility] Comment on above: Performed By: #### T SH, FT3 #### [facility] [address] [place] [address] Dr. Cole Echeverria AST [Catalytic activity/Vol] 13 U/L Critically low 15-37 [facility] Comment on above: Performed By: #### T SH, FT3 #### [facility] [address] [place] [address] Dr. Cole Echeverria Bilirubin [Mass/Vol] 0.5 mg/dL Normal 0.2-1.0 [facility] Comment on above: Performed By: #### T SH, FT3 #### [facility] [address] [place] [address] Dr. Cole Echeverria Calcium [Mass/Vol] 9.6 mg/dL Normal 8.5-10.1 [facility] Comment on above: Performed By: #### T SH, FT3 #### [facility] [address] [place] [address] Dr. Cole Echeverria Chloride [Moles/Vol] 101 mmol/L Normal 98-107 [facility] Comment on above: Performed By: #### T SH, FT3 #### [facility] [address] [place] [address] Dr. Cole Echeverria CO2 [Moles/Vol] 31.6 mmol/L Normal 21.0-32.0 [facility] Comment on above: Performed By: #### T SH, FT3 #### [facility] [address] [place] [address] Dr. Cole Echeverria Creatinine [Mass/Vol] 1.13 mg/dL Normal 0.70-1.[address] [facility] Comment on above: Performed By: #### T SH, FT3 #### [facility] [address] [place] [address] Dr. Cole Echeverria EGFR-AF [place] >60 Normal >=60 [facility] Comment on above: Performed By: #### T SH, FT3 #### [facility] [address] [place] [address] Dr. Cole Echeverria EGFR-NON AF [place] >60 Normal >=[address] [facility] Comment on above: Performed By: #### T SH, FT3 #### [facility] [address] [place] [address] Dr. Cole Echeverria Globulin (S) [Mass/Vol] 5.0 g/dL Normal [facility] Comment on above: Performed By: #### T SH, FT3 #### [facility] [address] [place] [address] Dr. Cole Echeverria Glucose [Mass/Vol] 104 mg/dL Normal 74-106 [facility] Comment on above: Performed By: #### T SH, FT3 #### [facility] [address] [place] [address] Dr. Cole Echeverria Potassium [Moles/Vol] 3.9 mmol/L Normal 3.5-5.[address] [facility] Comment on above: Performed By: #### T SH, FT3 #### [facility] [address] [place] [address] Dr. Cole Echeverria Protein [Mass/Vol] 8.1 g/dL Normal 6.4-8.2 [facility] Comment on above: Performed By: #### T SH, FT3 #### [facility] [address] [place] [address] Dr. Cole Echeverria Sodium [Moles/Vol] 138 mmol/L Normal 136-145 [facility] Comment on above: Performed By: #### T SOPHIE, FT3 #### [facility] [address] [place] [address] Dr. Cole Echeverria Urea nitrogen [Mass/Vol] 21.0 mg/dL Critically high 7.0-18.0 [facility] Comment on above: Performed By: #### T SOPHIE, FT3 #### [facility] [address] [place] [address] Dr. Cole Echeverria Urea nitrogen/Creatinine [Mass ratio] 18.6 mg/mg Normal [facility] Comment on above: Performed By: #### T SOPHIE, FT3 #### [facility] [address] [place] [address] Dr. Cole Echeverria URINE T PROTEIN CREAT RATIOo n 10-03-2022 Protein (U) [Mass/Vol] 7.0 mg/dL Normal <=12.0 [facility] Comment on above: Performed By: #### T SOPHIE, FT3 #### [facility] [address] [place] [address] Dr. Cole Echeverria UR PROT CREAT RAT 0.11 Normal [facility] Comment on above: Performed By: #### T SOPHIE, FT3 #### [facility] [address] [place] [address] Dr. Cole Echeverria URINE CREAT 62.81 mg/dL Normal 20.00-300.00 [facility] [place] Comment on above: Performed By: #### T SOPHIE, FT3 #### [facility] [address] [place] [address] Dr. Cole Echeverria VITAMIN D 25 OHon 10-03-2022 VIT D 25-OH 52.1 ng/mL Normal [facility] Comment on above: Performed By: #### T SOPHIE, FT3 #### [facility] [address] [place] [address] Dr. Cole Echeverria VIT D RANGES SEE BELOW Normal [facility] Comment on above: Result Comment: <20 ng/mL Vit D deficient 20 - <30 ng/mL Vit D insufficient 30 - 100 ng/mL Vit D sufficient >100 ng/mL Potential Toxicity Performed By: #### T SH, FT3 #### [facility] [address] [place], [place] [address] Dr. Cole Echeverria BNPon 07-12-2022 Natriuretic peptide B (Bld) [Mass/Vol] 1748.0 pg/mL Normal <=1,800.[address] [facility] Comment on above: Performed By: #### F T4, PSASC #### [facility] [address] [place], [place] [address] Dr. Cole Echeverria Office Visit (Cardiology)on 07-12-2022 [...] Metabolic Panel; Status:Active - Retrospective Authorization; Requested for:[id number]; Brain Natriuretic Peptide BNP; Status:Active - Retrospective Authorization; Requested for:[id number]; Health Maintenance Basic Metabolic Panel; Status:Canceled - Retrospective Authorization; Morbid obesity with BMI of 50.0-59.9, adult Healthy Weight Tips; Status:Complete - Retrospective Authorization; Done: [id number] Unlinked Healthy Weight Tips; Status:Complete - Retrospective Authorization; Done: [id number] Tobacco Use Screening; Status:Complete; Done: [id number] Tobacco Use Screening; Status:Complete; Done: [id number] Patient Instructions Please bring all medicines, vitamins, [...] in 6 months Chief Complaint 07/05/2022 [facility] [place] SP EKOS. RAFAEL CABRAL is being [...] Vitals Vital Signs Recorded: 12Jul2022 11:36AM Heart Wive106, L Radial Ohtgdvsm212, LUE, Sitting Dmeybuegx01, LUE, Sitting Height5 ft 11 in Vtxiya793 lb BMI Jjnqpuafit80.05 kg/m2 BSA Calculated2.73 Tobacco Useb) No PHQ-2 [...] no thyrom (more content not included)... Normal [facility] PROF CHEM 8 (BAS METB)on Anion gap [Moles/Vol] 10.2 mmol/L Normal [facility] Comment on above: Performed By: #### F T4, PSASC #### [facility] [address] [place] [address] Dr. Cole Echeverria Calcium [Mass/Vol] 8.9 mg/dL Normal 8.5-10.1 [facility] Comment on above: Performed By: #### F T4, PSASC #### [facility] [address] [place] [address] [address] Cole Echeverria Chloride [Moles/Vol] 97 mmol/L Critically low 98-107 [facility] Comment on above: Performed By: #### F T4, PSASC #### [facility] [address] [place] [address] [address] Cole Echeverria CO2 [Moles/Vol] 32.3 mmol/L Critically high 21.0-32.0 [facility] Comment on above: Performed By: #### F T4, PSASC #### [facility] [address] [place] [address] [address] Cole Echeverria Creatinine [Mass/Vol] 1.18 mg/dL Normal 0.70-1.30 [facility] Comment on above: Performed By: #### F T4, PSASC #### [facility] [address] [place] [address] Dr. Cole Echeverria EGFR-AF [place] >60 Normal >=60 [facility] Comment on above: Performed By: #### F T4, PSASC #### [facility] [address] [place] [address] [address] Cole Echeverria EGFR-NON AF [place] =60 Normal >=60 [facility] Comment on above: Performed By: #### F T4, PSASC #### [facility] [address] [place] [address] [address] Cole Echeverria Glucose [Mass/Vol] 104 mg/dL Normal 74-106 [facility] Comment on above: Performed By: #### F T4, PSASC #### [facility] [address] [place] [address] [address] Cole Echeverria Potassium [Moles/Vol] 3.5 mmol/L Normal 3.5-5.1 [facility] Comment on above: Performed By: #### F T4, PSASC #### [facility] [address] [place] [address] Dr. Cole Echeverria Sodium [Moles/Vol] 136 mmol/L Normal 136-145 [facility] Comment on above: Performed By: #### F T4, PSASC #### [facility] [address] [address] [address] Cole Echeverria Urea nitrogen [Mass/Vol] 11.0 mg/dL Normal 7.0-18.0 [facility] Comment on above: Performed By: #### F T4, PSASC #### [facility] [address] [address] [address] Cole Echeverria Urea nitrogen/Creatinine [Mass ratio] 9.3 mg/mg Normal [facility] Comment on above: Performed By: #### F T4, PSASC #### [facility] [address] [place] [address] Dr. Cole Echeverria Tobacco Screening.on 022 Adult depression screening assessment No [facility] 250 DO Work Phone: Fall risk assessment a) No falls within the last year [facility] 250 DO Work Phone: Tobacco use status [facility] b) No [facility] 250 DO Work Phone: Basic Metabolic Panelon 06-06 Calcium [Mass/Vol] 8.7 mg/dL Normal 8.2-10.2 [facility] Comment on above: Performed By: #### C BC, BMP #### [facility] [address] Chloride [Moles/Vol] 104 mmol/L Normal 95-114 [facility] Comment on above: Performed By: #### C BC, BMP #### [facility] [address] CO2 [Moles/Vol] 28.0 mmol/L Normal 22.0-30.0 [facility] Comment on above: Performed By: #### C BC, BMP #### [facility] [address] [place] [address] [place] Creatinine [Mass/Vol] 1.60 mg/dL High 0.64-1.27 [facility] Comment on above: Performed By: #### C BC, BMP #### [facility] [address] [place] [address] [place] Creatinine Clr Calc Pharmacy 62.30 [facility] Comment on above: Result Comment: PERF ORMED BY: [place] [id number] PATHOLOGIST IT COMPLIANCE ANALYST ADRIEN RAMIREZ M.D. Performed By: #### C BC, BMP #### [facility] [address] [place] [address] [place] Estimated GFR ( Janeen 51 [facility] Comment on above: Result Comment: GFR estimated reference range: According to KDOQI guidelines, <60 ml/min/1.73m2 is sufficient to diagnose a patient with chronic kidney disease. Performed By: #### C BC, BMP #### [address] Estimated GFR (Non- Am 42 Normal [facility] Comment on above: Performed By: #### C BC, BMP #### [address] Glucose [Mass/Vol] 111 mg/dL High 70-100 [facility] Comment on above: Result Comment: [facility] Glucose Reference Range is dependent on time and content of last meal. Glucose of more than 200 mg/dL in a nonstressed, ambulatory subject supports the diagnosis of Diabetes Mellitus. ADA recommended reference range Performed By: #### C BC, BMP #### [address] Potassium [Moles/Vol] 4.1 mmol/L Normal 3.5-5.1 [facility] Comment on above: Performed By: #### C BC, BMP #### [address] Sodium [Moles/Vol] 139 mmol/L Normal 136-146 [facility] Comment on above: Performed By: #### C BC, BMP #### [address] Urea nitrogen [Mass/Vol] 35 mg/dL High 9-23 [facility] Comment on above: Performed By: #### C BC, BMP #### [address] Complete Blood Count Auto Di ffon 06-24-2022 Basophils (Bld) [#/Vol] 0.1 10*3/uL Normal 0.0-0.2 [facility] Comment on above: Result Comment: PERF ORMED BY: [place] [id number] PATHOLOGIST IT COMPLIANCE ANALYST ADRIEN RAMIREZ M.D. Performed By: #### C BC, BMP #### [place] [address] [place] Basophils/100 WBC (Bld) 0.6 % Normal . [facility] Comment on above: Performed By: #### C BC, BMP #### [facility] [address] Eosinophils (Bld) [#/Vol] 0.6 10*3/uL High 0.0-0.45 [facility] Comment on above: Performed By: #### C BC, BMP #### [facility] [address] Eosinophils/100 WBC (Bld) 7.2 % Normal . [facility] Comment on above: Performed By: #### C BC, BMP #### [facility] [address] Erythrocyte distribution width (RBC) [Ratio] 14.9 % High 12.0-14.8 [facility] Comment on above: Performed By: #### C BC, BMP #### [facility] [address] Hematocrit (Bld) [Volume fraction] 39.6 % Normal 38.8-50.0 [facility] Comment on above: Performed By: #### C BC, BMP #### [facility] [address] Hemoglobin (Bld) [Mass/Vol] 13.1 g/dL Normal 13.0-17.0 [facility] Comment on above: Performed By: #### C BC, BMP #### [facility] [address] [place] [address] [place] Lymphocytes (Bld) [#/Vol] 2.0 10*3/uL Normal 1.00-4.8 [facility] Comment on above: Performed By: #### C BC, BMP #### [facility] [address] [place] [address] [place] Lymphocytes/100 WBC (Bld) 23.1 % Normal . [facility] Comment on above: Performed By: #### C BC, BMP #### [facility] [address] MCH (RBC) [Entitic mass] 30.2 pg Normal 27.5-35.2 [facility] Comment on above: Performed By: #### C BC, BMP #### [facility] [address] MCV (RBC) [Entitic vol] 91.5 fL Normal 83.5-101 [facility] Comment on above: Performed By: #### C BC, BMP #### [facility] [address] Mean Corpuscular HGB Conc 33.0 g/dL Normal 32.5-35.6 [facility] Comment on above: Performed By: #### C BC, BMP #### [facility] [address] Monocytes (Bld) [#/Vol] 0.6 10*3/uL Normal 0.0-0.8 [facility] Comment on above: Performed By: #### C BC, BMP #### [facility] [address] Monocytes/100 WBC (Bld) 7.5 % Normal . [facility] Comment on above: Performed By: #### C BC, BMP #### [facility] [address] [place] [address] [place] Neutrophils (Bld) [#/Vol] 5.3 10*3/uL Normal 1.8-7.7 [facility] Comment on above: Performed By: #### C BC, BMP #### [facility] [address] [place] [address] [place] Neutrophils/100 WBC (Bld) 61.6 % Normal . [facility] Comment on above: Performed By: #### C BC, BMP #### [facility] [address] [place] [address] [place] Nucleated RBC/100 WBC (Bld) [Ratio] 0.0 % Normal 0-0.5 [facility] Comment on above: Performed By: #### C BC, BMP #### [facility] [address] Platelet mean volume (Bld) [Entitic vol] 9.0 fL Normal 6.6-10.1 [facility] Comment on above: Performed By: #### C BC, BMP #### [facility] [address] Platelets (Bld) [#/Vol] 165 10*3/uL Normal 150-450 [facility] Comment on above: Performed By: #### C BC, BMP #### [facility] [address] RBC (Bld) [#/Vol] 4.33 10*6/uL Normal 3.90-5.60 [facility] Comment on above: Performed By: #### C BC, BMP #### [address] WBC (Bld) [#/Vol] 8.6 10*3/uL Normal 4.5-11.0 [facility] Comment on above: Performed By: #### C AMANDEEP, BMP #### [address] Creatinine, Urine (Random)on 06-24-2022 Creatinine, Urine (Random) 162.5 mg/dL Normal [facility] Comment on above: Result Comment: No r eference range established Performed By: #### C AMANDEEP, BMP #### [address] Partial Thromboplastin Timeo n 06-24-2022 aPTT Coag (Bld) [Time] 77.2 s High 25.1-36.5 [facility] Comment on above: Result Comment: PERF ORMED BY: [place] [id number] PATHOLOGIST IT COMPLIANCE ANALYST ADRIEN RAMIREZ M.D. Performed By: #### C AMANDEEP, BMP #### [address] Prothrombin Time INRon 06-24 INR Coag (PPP) [Relative time] 1.9 {INR} Normal [facility] Comment on above: Result Comment: INR [...] Performed By: #### C BC, BMP #### [facility] [address] PT Coag (PPP) [Time] 21.9 s High 9.0-12.9 [facility] Comment on above: Performed By: #### C BC, BMP #### [facility] [address] Thyroid Stim Hormone w/Rflxo n 06-24-2022 Thyroid Stim Hormone w/Rflx 1.06 u[iU]/mL Normal 0.45-5.33 [facility] Comment on above: Order Comment: Comme nt Add on to previous lab draw Result Comment: PERF ORMED BY: [place] [id number] PATHOLOGIST IT COMPLIANCE ANALYST ADRIEN RAMIREZ M.D. Performed By: #### C BC, BMP #### [address] Total Protein, Urineon 06-24 Protein (U) [Mass/Vol] 7 mg/dL Normal 0-9 [facility] Comment on above: Result Comment: PERF ORMED BY: [place] [id number] PATHOLOGIST IT COMPLIANCE ANALYST ADRIEN RAMIREZ M.D. Performed By: #### C BC, BMP #### [facility] [address] [place] [address] [place] Urinalysison 06-24-2022 Appearance (U) Clear Normal Clear [facility] Comment on above: Order Comment: Name Collection Type:: Voided Performed By: #### C BC, BMP #### [facility] [address] [place] [address] [place] Bilirubin,Urine Negative Normal Negative [facility] Comment on above: Order Comment: Name Collection Type:: Voided Performed By: #### C BC, BMP #### [place] [address] [place] Color (U) Yellow Normal Yellow [facility] Comment on above: Order Comment: Name Collection Type:: Voided Performed By: #### C BC, BMP #### [address] Glucose Ql (U) Normal Normal Normal [facility] Comment on above: Order Comment: Name Collection Type:: Voided Performed By: #### C BC, BMP #### [address] Ketones Ql (U) Negative Normal Negative [facility] Comment on above: Order Comment: Name Collection Type:: Voided Performed By: #### C BC, BMP #### [address] Leukocyte esterase Test strip Ql (U) Negative Normal Negative [facility] Comment on above: Order Comment: Name Collection Type:: Voided Performed By: #### C BC, BMP #### [place] [address] [place] Nitrite,Urine Negative Normal Negative [facility] Comment on above: Order Comment: Name Collection Type:: Voided Performed By: #### C BC, BMP #### [address] Occult Blood,Urine Negative Normal Negative [facility] Comment on above: Order Comment: Name Collection Type:: Voided Result Comment: PERF ORMED BY: [place] [id number] PATHOLOGIST IT COMPLIANCE ANALYST ADRIEN RAMIREZ M.D. Performed By: #### C BC, BMP #### [place] [address] [place] pH (U) 5.5 [pH] Normal 5.0-9.0 [facility] Comment on above: Order Comment: Name Collection Type:: Voided Performed By: #### C BC, BMP #### [place] [address] [place] Protein,Urine Negative Normal Negative [facility] Comment on above: Order Comment: Name Collection Type:: Voided Performed By: #### C BC, BMP #### [address] Specificy [place],Urine 1.021 Normal 1.001-1.030 [facility] Comment on above: Order Comment: Name Collection Type:: Voided Performed By: #### C BC, BMP #### [address] Urobilinogen,Urine Normal Normal Normal [facility] Comment on above: Order Comment: Name Collection Type:: Voided Performed By: #### C BC, BMP #### [address] B-Type Natriuretic Peptideon 06-23-2022 Natriuretic peptide B (Bld) [Mass/Vol] 343.0 pg/mL High 5-100 [facility] Comment on above: Result Comment: PERF ORMED BY: [place] [id number] PATHOLOGIST IT COMPLIANCE ANALYST ADRIEN RAMIREZ M.D. Performed By: #### B MANUFACTURING SALES REPRESENTATIVE #### [address] Basic Metabolic Panelon 06-05 Calcium [Mass/Vol] 8.2 mg/dL Normal 8.2-10.2 [facility] Comment on above: Performed By: #### C BC, BMP #### [place] [address] [place] Chloride [Moles/Vol] 103 mmol/L Normal 95-114 [facility] Comment on above: Performed By: #### C BC, BMP #### [address] CO2 [Moles/Vol] 27.3 mmol/L Normal 22.0-30.0 [facility] Comment on above: Performed By: #### C BC, BMP #### [address] Creatinine [Mass/Vol] 1.86 mg/dL High 0.64-1.27 [facility] Comment on above: Performed By: #### C BC, BMP #### [address] Creatinine Clr Calc Pharmacy 53.59 [facility] Comment on above: Result Comment: PERF ORMED BY: [place] [id number] PATHOLOGIST IT COMPLIANCE ANALYST ADRIEN RAMIREZ M.D. Performed By: #### C BC, BMP #### [address] Estimated GFR ( Janeen 43 [facility] Comment on above: Result Comment: GFR estimated reference range: According to KDOQI guidelines, <60 ml/min/1.73m2 is sufficient to diagnose a patient with chronic kidney disease. Performed By: #### C BC, BMP #### [place] [address] [place] Estimated GFR (Non- Am 36 [facility] Comment on above: Performed By: #### C BC, BMP #### [address] Glucose [Mass/Vol] 144 mg/dL High 70-100 [facility] Comment on above: Result Comment: [place] Glucose Reference Range is dependent on time and content of last meal. Glucose of more than 200 mg/dL in a nonstressed, ambulatory subject supports the diagnosis of Diabetes Mellitus. ADA recommended reference range Performed By: #### C BC, BMP #### [address] Potassium [Moles/Vol] 3.8 mmol/L Normal 3.5-5.1 [facility] Comment on above: Performed By: #### C BC, BMP #### [address] Sodium [Moles/Vol] 138 mmol/L Normal 136-146 [facility] Comment on above: Performed By: #### C BC, BMP #### [place] [address] [place] Urea nitrogen [Mass/Vol] 42 mg/dL High 9-23 [facility] Comment on above: Performed By: #### C BC, BMP #### [address] Complete Blood Count Auto Di ffon 06-23-2022 Basophils (Bld) [#/Vol] 0.0 10*3/uL Normal 0.0-0.2 [facility] Comment on above: Result Comment: PERF ORMED BY: [place] [id number] PATHOLOGIST IT COMPLIANCE ANALYST ADRIEN RAMIREZ M.D. Performed By: #### C AMANDEEP, BMP #### [address] Basophils/100 WBC (Bld) 0.3 % Normal . [facility] Comment on above: Performed By: #### C BC, BMP #### [address] Eosinophils (Bld) [#/Vol] 0.6 10*3/uL High 0.0-0.45 [facility] Comment on above: Performed By: #### C BC, BMP #### [address] Eosinophils/100 WBC (Bld) 6.6 % Normal . [facility] Comment on above: Performed By: #### C BC, BMP #### [address] Erythrocyte distribution width (RBC) [Ratio] 14.6 % Normal 12.0-14.8 [facility] Comment on above: Performed By: #### C BC, BMP #### [address] Hematocrit (Bld) [Volume fraction] 39.2 % Normal 38.8-50.0 [facility] Comment on above: Performed By: #### C BC, BMP #### [address] Hemoglobin (Bld) [Mass/Vol] 12.8 g/dL Low 13.0-17.0 [facility] Comment on above: Performed By: #### C BC, BMP #### [facility] [address] Lymphocytes (Bld) [#/Vol] 1.8 10*3/uL Normal 1.00-4.8 [facility] Comment on above: Performed By: #### C BC, BMP #### [facility] [address] Lymphocytes/100 WBC (Bld) 21.7 % Normal . [facility] Comment on above: Performed By: #### C BC, BMP #### [facility] [address] MCH (RBC) [Entitic mass] 30.0 pg Normal 27.5-35.2 [facility] Comment on above: Performed By: #### C BC, BMP #### [facility] [address] MCV (RBC) [Entitic vol] 92.1 fL Normal 83.5-101 [facility] Comment on above: Performed By: #### C BC, BMP #### [facility] [address] Mean Corpuscular HGB Conc 32.5 g/dL Normal 32.5-35.6 [facility] Comment on above: Performed By: #### C BC, BMP #### [facility] [address] [place] [address] [place] Monocytes (Bld) [#/Vol] 0.5 10*3/uL Normal 0.0-0.8 [facility] Comment on above: Performed By: #### C BC, BMP #### [facility] [address] [place] [address] [place] Monocytes/100 WBC (Bld) 6.3 % Normal . [facility] Comment on above: Performed By: #### C BC, BMP #### [facility] [address] Neutrophils (Bld) [#/Vol] 5.5 10*3/uL Normal 1.8-7.7 [facility] Comment on above: Performed By: #### C BC, BMP #### [facility] [address] [place] [address] [place] Neutrophils/100 WBC (Bld) 65.1 % Normal . [facility] Comment on above: Performed By: #### C BC, BMP #### [facility] [address] [place] [address] [place] Nucleated RBC/100 WBC (Bld) [Ratio] 0.0 % Normal 0-0.5 [facility] Comment on above: Performed By: #### C BC, BMP #### [facility] [address] Platelet mean volume (Bld) [Entitic vol] 9.1 fL Normal 6.6-10.1 [facility] Comment on above: Performed By: #### C BC, BMP #### [facility] [address] [place] [address] [place] Platelets (Bld) [#/Vol] 165 10*3/uL Normal 150-450 [facility] Comment on above: Performed By: #### C BC, BMP #### [facility] [address] [place] [address] [place] RBC (Bld) [#/Vol] 4.26 10*6/uL Normal 3.90-5.60 [facility] Comment on above: Performed By: #### C BC, BMP #### [facility] [address] [place] [address] [place] WBC (Bld) [#/Vol] 8.4 10*3/uL Normal 4.5-11.0 [facility] Comment on above: Performed By: #### C BC, BMP #### [facility] [address] [place] [address] [place] Basophils (Bld) [#/Vol] 0.0 10*3/uL Normal 0.0-0.2 [facility] Comment on above: Result Comment: PERF ORMED BY: [place] [id number] PATHOLOGIST IT COMPLIANCE ANALYST ADRIEN RAMIREZ M.D. Performed By: #### C BC, CMP, HS TROP #### [facility] [address] [place] [address] [place] Basophils/100 WBC (Bld) 0.4 % Normal . [facility] Comment on above: Performed By: #### C BC, CMP, HS TROP #### [facility] [address] Eosinophils (Bld) [#/Vol] 0.5 10*3/uL High 0.0-0.45 [facility] Comment on above: Performed By: #### C BC, CMP, HS TROP #### [facility] [address] [place] [address] [place] Eosinophils/100 WBC (Bld) 4.0 % Normal . [facility] Comment on above: Performed By: #### C BC, CMP, HS TROP #### [facility] [address] Erythrocyte distribution width (RBC) [Ratio] 14.7 % Normal 12.0-14.8 [facility] Comment on above: Performed By: #### C BC, CMP, HS TROP #### [facility] [address] Hematocrit (Bld) [Volume fraction] 41.3 % Normal 38.8-50.0 [facility] Comment on above: Performed By: #### C BC, CMP, HS TROP #### [facility] [address] [place] [address] [place] Hemoglobin (Bld) [Mass/Vol] 13.4 g/dL Normal 13.0-17.0 [facility] Comment on above: Performed By: #### C BC, CMP, HS TROP #### [facility] [address] [place] [address] [place] Lymphocytes (Bld) [#/Vol] 2.0 10*3/uL Normal 1.00-4.8 [facility] Comment on above: Performed By: #### C BC, CMP, HS TROP #### [facility] [address] [place] [address] [place] Lymphocytes/100 WBC (Bld) 17.2 % Normal . [facility] Comment on above: Performed By: #### C BC, CMP, HS TROP #### [address] MCH (RBC) [Entitic mass] 30.1 pg Normal 27.5-35.2 [facility] Comment on above: Performed By: #### C BC, CMP, HS TROP #### [address] MCV (RBC) [Entitic vol] 92.6 fL Normal 83.5-101 [facility] Comment on above: Performed By: #### C BC, CMP, HS TROP #### [address] Mean Corpuscular HGB Conc 32.4 g/dL Low 32.5-35.6 [facility] Comment on above: Performed By: #### C BC, CMP, HS TROP #### [address] Monocytes (Bld) [#/Vol] 0.7 10*3/uL Normal 0.0-0.8 [facility] Comment on above: Performed By: #### C BC, CMP, HS TROP #### [address] Monocytes/100 WBC (Bld) 5.8 % Normal . [facility] Comment on above: Performed By: #### C BC, CMP, HS TROP #### [address] Neutrophils (Bld) [#/Vol] 8.4 10*3/uL High 1.8-7.7 [facility] Comment on above: Performed By: #### C BC, CMP, HS TROP #### [address] Neutrophils/100 WBC (Bld) 72.6 % Normal . [facility] Comment on above: Performed By: #### C BC, CMP, HS TROP #### [place] [address] [place] Nucleated RBC/100 WBC (Bld) [Ratio] 0.0 % Normal 0-0.5 [facility] Comment on above: Performed By: #### C BC, CMP, HS TROP #### [facility] [address] Platelet mean volume (Bld) [Entitic vol] 9.0 fL Normal 6.6-10.1 [facility] Comment on above: Performed By: #### C BC, CMP, HS TROP #### [facility] [address] Platelets (Bld) [#/Vol] 204 10*3/uL Normal 150-450 [facility] Comment on above: Performed By: #### C BC, CMP, HS TROP #### [address] RBC (Bld) [#/Vol] 4.45 10*6/uL Normal 3.90-5.60 [facility] Comment on above: Performed By: #### C BC, CMP, HS TROP #### [address] WBC (Bld) [#/Vol] 11.6 10*3/uL High 4.5-11.0 [facility] Comment on above: Performed By: #### C BC, CMP, HS TROP #### [facility] [address] [place] [address] Comprehensive Metabolic Pane isidro 06-23-2022 Albumin [Mass/Vol] 2.9 g/dL Low 3.2-5.5 [facility] Comment on above: Performed By: #### C BC, CMP, HS TROP #### [facility] [address] [place] [address] Albumin/Globulin [Mass ratio] 0.7 {ratio} Normal [facility] Comment on above: Performed By: #### C BC, CMP, HS TROP #### [facility] [address] [place] [address] ALP [Catalytic activity/Vol] 70 U/L Normal 32-92 [facility] Comment on above: Performed By: #### C BC, CMP, HS TROP #### [facility] [address] [place] [id number] [place] ALT [Catalytic activity/Vol] 20 U/L Normal 10-60 [facility] Comment on above: Performed By: #### C BC, CMP, HS TROP #### [facility] [address] [place] [address] [place] AST [Catalytic activity/Vol] 20 U/L Normal 10-42 [facility] Comment on above: Performed By: #### C BC, CMP, HS TROP #### [facility] [address] [place] [address] [place] Bilirubin [Mass/Vol] 1.2 mg/dL Normal 0.3-1.2 [facility] Comment on above: Performed By: #### C BC, CMP, HS TROP #### [facility] [address] [place] [address] [place] Calcium [Mass/Vol] 8.8 mg/dL Normal 8.2-10.2 [facility] Comment on above: Performed By: #### C BC, CMP, HS TROP #### [facility] [address] [place] [address] [place] Chloride [Moles/Vol] 97 mmol/L Normal 95-114 [facility] Comment on above: Performed By: #### C BC, CMP, HS TROP #### [facility] [address] [place] [address] [place] CO2 [Moles/Vol] 28.1 mmol/L Normal 22.0-30.0 [facility] Comment on above: Performed By: #### C BC, CMP, HS TROP #### [facility] [address] [place] [id number] [place] Creatinine [Mass/Vol] 1.87 mg/dL High 0.64-1.27 [facility] Comment on above: Performed By: #### C BC, CMP, HS TROP #### [facility] [address] [place] [id number] [place] Creatinine Clr Calc Pharmacy 52.98 Normal [facility] Comment on above: Result Comment: PERF ORMED BY: [place] [id number] PATHOLOGIST IT COMPLIANCE ANALYST ADRIEN RAMIREZ M.D. Performed By: #### C BC, CMP, HS TROP #### [address] Estimated GFR ( Jane[place] 43 [facility] Comment on above: Result Comment: GFR estimated reference range: According to KDOQI guidelines, <60 ml/min/1.73m2 is sufficient to diagnose a patient with chronic kidney disease. Performed By: #### C BC, CMP, HS TROP #### [address] Estimated GFR (Non- Am 35 [facility] Comment on above: Performed By: #### C BC, CMP, HS TROP #### [address] Globulin (S) [Mass/Vol] 4.0 g/dL [facility] Comment on above: Performed By: #### C BC, CMP, HS TROP #### [address] Glucose [Mass/Vol] 121 mg/dL High 70-100 [facility] Comment on above: Result Comment: [place] om Glucose Reference Range is dependent on time and content of last meal. Glucose of more than 200 mg/dL in a nonstressed, ambulatory subject supports the diagnosis of Diabetes Mellitus. ADA recommended reference range Performed By: #### C BC, CMP, HS TROP #### [facility] [address] [place] [address] Potassium [Moles/Vol] 4.1 mmol/L Normal 3.5-5.1 [facility] Comment on above: Performed By: #### C BC, CMP, HS TROP #### [facility] [address] [place] [address] Protein [Mass/Vol] 6.9 g/dL Normal 6.1-7.9 [facility] Comment on above: Performed By: #### C BC, CMP, HS TROP #### [facility] [address] [place] [address] Sodium [Moles/Vol] 137 mmol/L Normal 136-146 [facility] Comment on above: Performed By: #### C BC, CMP, HS TROP #### [address] Urea nitrogen [Mass/Vol] 41 mg/dL High 9-23 [facility] Comment on above: Performed By: #### C BC, CMP, HS TROP #### [address] Creatinine, Urine (Random)on 06-23-2022 Creatinine, Urine (Random) 60.1 mg/dL Normal [facility] Comment on above: Result Comment: No r eference range established Performed By: #### U NA, UCREA #### [address] #### UR UREA NIT #### [facility] , [facility] echo transthoracicon [facility] echo transthoracic [facility] Main [place] [address] [place] [address] Echocardiogram Signed Patient: Rafael Cabral MR#: [id number] : 1945 Acct:[id number] Age/Sex: 76 / M ADM Date: 06/22/22 Loc: Room: [address] [place] [address] Type: DIS IN Attending Dr: Rafael Napier MD Ordering Provider: Nely Michelle APRN Date of Service: 06/22/22 [facility] echo transthoracic: CHF Copies to: Susi Rivas MD, [facility] Nely Michelle APRN Height: 71 in Weight: [...] 06/23/22 0952 Signed By: Susi Rivas MD, [facility] 06/23/22 1045 Normal [facility] NM pul perfusionon 2 NM pul perfusion [facility] [place] [address] Nuclear Medicine Report Signed with Addenda Patient: Rafael Cabral MR#: [id number] : 1945 Acct:[id number] Age/Sex: 76 / M ADM Date: 06/22/22 Loc: Room: [address] [place] [address] Type: ADM IN Attending Dr: Rafael Napier MD Copies to: MD Fely Etienne MD Linda Obika, APRN Ordering Provider: Nely Michelle APRN Date of Service: 06/23/22 AR/AR pul perfusion: R/O PE ADDENDUM 1 Patient's nurse was notified of findings at the time of this interpretation at 1511 hours Impression dictated by: Fely Henderson M.D.06/23/2022 3:12 PM Dictation Location: [place] [address] Addendum Dictated By: MD Fely Henderson Addendum [...] Fely Henderson M.D.06/23/2022 3:06 PM Dictation Location: [place] [address] Transcribed By: [facility] 06/23/22 1506 Dictated By: Fely Henderson MD 06/23/22 1456 Signed By: 06/23/22 1506 Normal [facility] Partial Thromboplastin Timeo n 06-23-2022 aPTT Coag (Bld) [Time] 88.0 s High 25.1-36.5 [facility] Comment on above: Result Comment: PERF ORMED BY: [place] [id number] PATHOLOGIST IT COMPLIANCE ANALYST ADRIEN RAMIREZ M.D. Performed By: #### C BC, BMP #### [facility] [address] [place] [address] [place] aPTT Coag (Bld) [Time] 72.0 s High 25.1-36.5 [facility] Comment on above: Result Comment: PERF ORMED BY: [place] [id number] PATHOLOGIST IT COMPLIANCE ANALYST ADRIEN RAMIREZ M.D. Performed By: #### P TT #### [facility] [address] [place] [address] [place] aPTT Coag (Bld) [Time] 53.8 s High 25.1-36.5 [facility] Comment on above: Result Comment: PERF ORMED BY: [facility] [address] [place] [address] PATHOLOGIST IT COMPLIANCE ANALYST ADRIEN RAMIREZ M.D. Performed By: #### C BC, BMP #### [facility] [address] [place] [address] [place] aPTT Coag (Bld) [Time] 43.5 s High 25.1-36.5 [facility] Comment on above: Result Comment: PERF ORMED BY: [facility] [address] [place] [address] PATHOLOGIST IT COMPLIANCE ANALYST ADRIEN RAMIREZ M.D. Performed By: #### C BC, BMP #### [facility] [address] Prothrombin Time INRon 06-23 INR Coag (PPP) [Relative time] 1.3 {INR} Normal [facility] Comment on above: Result Comment: INR [...] Performed By: #### C AMANDEEP, BMP #### [address] PT Coag (PPP) [Time] 14.1 s High 9.0-12.9 [facility] Comment on above: Performed By: #### C AMANDEEP, BMP #### [address] INR Coag (PPP) [Relative time] 1.3 {INR} Normal [facility] Comment on above: Result Comment: INR [...] Performed By: #### C AMANDEEP, BMP #### [address] PT Coag (PPP) [Time] 14.2 s High 9.0-12.9 [facility] Comment on above: Performed By: #### C BC, BMP #### [address] Sodium, Urine (Random)on Sodium (U) [Moles/Vol] 105 mmol/L Normal [facility] Comment on above: Result Comment: No r eference range established PERFORMED BY: [place] [id number] PATHOLOGIST IT COMPLIANCE ANALYST ADRIEN RAMIREZ M.D. Performed By: #### U NA, UCREA #### [address] #### UR UREA NIT #### [facility] , Troponin I High Sensitivityo n 06-23-2022 Troponin I High Sensitivity 174 pg/mL Off scale high 0-20 [facility] Comment on above: Result Comment: Resu lts called at 0721 on 06/23/22 PERFORMED BY: [place] [id number] PATHOLOGIST IT COMPLIANCE ANALYST ADRIEN RAMIREZ M.D. Performed By: #### C BC, BMP #### [address] Troponin I High Sensitivity 244 pg/mL Off scale high 0-20 [facility] Comment on above: Result Comment: Resu lts called at 2345 on 06/22/22 PERFORMED BY: [place] [id number] PATHOLOGIST IT COMPLIANCE ANALYST ADRIEN RAMIREZ M.D. Performed By: #### C BC, CMP, HS TROP #### [address] Urine Urea Nitrogenon 2021 Urine Urea Nitrogen 392 mg/dL Normal Not Estab. [facility] Comment on above: Result Comment: Perf ormed at: CB - [facility] [address] [id number] Hop Picker: Solo Burden PhD, Phone: [phone] PERFORMED BY: [place] [id number] PATHOLOGIST IT COMPLIANCE ANALYST ADRIEN RAMIREZ M.D. Performed By: #### U NA, UCREA #### [place] [address] [place] #### UR UREA NIT #### [facility] , XR chest 1V portableon 06-23 XR chest 1V portable [facility] [place] [address] XRay Report Signed Patient: Rafael Cabral MR#: [id number] : 1945 Acct:[id number] Age/Sex: 76 / M ADM Date: 06/22/22 Loc: Room: [address] [place] [address] Type: ADM IN Attending Dr: Rafael Napier [...] Jayson Marsh M.D.06/23/2022 8:51 AM Dictation Location: [place] [address] Transcribed By: [facility] 06/23/22 0851 Dictated By: Jayson Marsh DO 06/23/22 0849 Signed By: 06/23/22 0851 [facility] BNPon 06-22-2022 Natriuretic peptide B (Bld) [Mass/Vol] 20845.0 pg/mL Critically high <=1,800.0 [facility] Comment on above: Performed By: #### F T4, PSASC #### [facility] [address] [place] [address] [address] Cole Echeverria CBC AUTO DIFFon 06-22-2022 BASO # 0.0 103/ul Normal 0.0-0.1 [facility] Comment on above: Performed By: #### T SH, FT3 #### [facility] [address] [address] [address] Cole Echeverria Basophils/100 WBC (Bld) 0.2 % Normal 0.2-2.0 [facility] Comment on above: Performed By: #### T SH, FT3 #### [facility] [address] [place] [address] Dr. Cole Echeverria EO # 0.3 103/ul Normal 0.0-0.7 [facility] Comment on above: Performed By: #### T SH, FT3 #### [facility] [address] [place] [address] Dr. Cole Echeverria Eosinophils/100 WBC (Bld) 2.8 % Normal 0.9-7.0 [facility] Comment on above: Performed By: #### T SOPHIE, FT3 #### [facility] [address] [place] [address] Dr. Cole Echeverria Erythrocyte distribution width (RBC) [Ratio] 14.5 % Normal 11.0-15.0 [facility] Comment on above: Performed By: #### T SOPHIE, FT3 #### [facility] [address] [place] [address] Dr. Cole Echeverria Hematocrit (Bld) [Volume fraction] 41.4 % Critically low 42.0-54.0 [facility] Comment on above: Performed By: #### T SOPHIE, FT3 #### [facility] [address] [place] [address] Dr. Cole Echeverria Hemoglobin (Bld) [Mass/Vol] 13.2 g/dL Critically low 14.0-18.0 [facility] Comment on above: Performed By: #### T SOPHIE, FT3 #### [facility] [address] [place] [address] Dr. Cole Echeverria IG # 0.05 10e3/ul Critically high 0.00-0.03 [facility] Comment on above: Performed By: #### T SOPHIE, FT3 #### [facility] [address] [place] [address] Dr. Cole Echeverria IG % 0.4 % Normal 0.0-0.5 [facility] Comment on above: Performed By: #### T SOPHIE, FT3 #### [facility] [address] [place] [address] Dr. Cole Echeverria LYMPH # 1.8 103/ul Normal 1.2-3.[address] [facility] Comment on above: Performed By: #### T SH, FT3 #### [facility] [address] [place] [address] Dr. Cole Echeverria Lymphocytes/100 WBC (Bld) 14.7 % Critically low 20.5-60.[address] [facility] Comment on above: Performed By: #### T SH, FT3 #### [facility] [address] [place] [address] Dr. Cole Echeverria MANUAL DIFF REQ NO Normal [facility] Comment on above: Performed By: #### T SOPHIE, FT3 #### [facility] [address] [place] [address] Dr. Cole Echeverria MCH (RBC) [Entitic mass] 29.8 pg Normal 25.9-34.[address] [facility] Comment on above: Performed By: #### T SOPHIE, FT3 #### [facility] [address] [place] [address] Dr. Cole Echeverria MCHC (RBC) [Mass/Vol] 31.9 g/dL Normal 29.9-35.[address] [facility] Comment on above: Performed By: #### T SOPHIE, FT3 #### [facility] [address] [place] [address] Dr. Cole Echeverria MCV (RBC) [Entitic vol] 93.5 fL Normal 80.0-94.[address] [facility] Comment on above: Performed By: #### T SOPHIE, FT3 #### [facility] [address] [place] [address] Dr. Cole Echeverria MONO # 0.7 103/ul Normal 0.3-0.[address] [facility] Comment on above: Performed By: #### T SOPHIE, FT3 #### [facility] [address] [place] [address] Dr. Cole Echeverria Monocytes/100 WBC (Bld) 6.1 % Normal 1.7-12.[address] [facility] Comment on above: Performed By: #### T , FT3 #### [facility] [address] [place] [address] Dr. Cole Echeverria NEUT # 9.2 103/ul Critically high 1.4-6.5 [facility] Comment on above: Performed By: #### T , FT3 #### [facility] [address] [place] [address] Dr. Cole Echeverria Neutrophils/100 WBC (Bld) 75.8 % Critically high 43.0-75.[address] [facility] Comment on above: Performed By: #### T , FT3 #### [facility] [address] [place] [address] Dr. Cole Echeverria Platelet mean volume (Bld) [Entitic vol] 10.2 fL Normal 9.5-13.[address] [facility] Comment on above: Performed By: #### T , FT3 #### [facility] [address] [place] [address] Dr. Cole Echeverria PLT 185 103/ul Normal 150-[address] [facility] Comment on above: Performed By: #### T , FT3 #### [facility] [address] [place] [address] Dr. Cole Echeverria RBC 4.43 106/ul Critically low 4.70-6.10 [facility] Comment on above: Performed By: #### T , FT3 #### [facility] [address] [place] [address] Dr. Cole Echeverria WBC 12.1 103/ul Critically high 4.0-11.0 [facility] Comment on above: Performed By: #### T , FT3 #### [facility] [address] [place] [address] Dr. Cole Echeverria [facility]05 SARS-CoV-2 (COVID-19) RNA HALEIGH+probe Ql (Unsp spec) Not detected Normal NOT DETECTED [facility] Comment on above: Result Comment: When [...] for this test is supported by the [place] of [employer] and Human Service's declaration that [...] Performed By: #### C VDTBH #### [facility] [address] [place] [address] Dr. Cole Echeverria D-DIMERon 06-22-2022 D-DIMER 15.71 mg/L FEU Critically high <=0.59 [facility] Comment on above: Performed By: #### F T4, PSASC #### [facility] [address] [place] [address] Dr. Cole Echeverria D-DIMER COMMENTS SEE BELOW Normal [facility] Comment on above: Result Comment: [...] By: #### F T4, PSASC #### [facility] [address] [place] [address] Dr. Cole Echeverria PROF 14(COMP METB)on 022 Albumin [Mass/Vol] 2.9 g/dL Critically low 3.4-5.0 [facility] Comment on above: Performed By: #### F T4, PSASC #### [facility] [address] [place] [address] Dr. Cole Echeverria Albumin/Globulin [Mass ratio] 0.7 {ratio} Normal [facility] Comment on above: Performed By: #### F T4, PSASC #### [facility] [address] [place] [address] Dr. Cole Echeverria ALP [Catalytic activity/Vol] 89 U/L Normal 46-116 [facility] Comment on above: Performed By: #### F T4, PSASC #### [facility] [address] [address] [address] Cole Echeverria ALT [Catalytic activity/Vol] 21 U/L Normal 16-63 [facility] Comment on above: Performed By: #### F T4, PSASC #### [facility] [address] [place] [address] Dr. Cole Echeverria Anion gap [Moles/Vol] 11.8 mmol/L Normal [facility] Comment on above: Performed By: #### F T4, PSASC #### [facility] [address] [place] [address] Dr. Cole Echeverria AST [Catalytic activity/Vol] 19 U/L Normal 15-37 [facility] Comment on above: Performed By: #### F T4, PSASC #### [facility] [address] [place] [address] Dr. Cole Echeverria Bilirubin [Mass/Vol] 0.8 mg/dL Normal 0.2-1.0 [facility] Comment on above: Performed By: #### F T4, PSASC #### [facility] [address] [place] [address] Dr. Cole Echeverria Calcium [Mass/Vol] 9.0 mg/dL Normal 8.5-10.1 [facility] Comment on above: Performed By: #### F T4, PSASC #### [facility] [address] [place] [address] Dr. Cole Echeverria Chloride [Moles/Vol] 101 mmol/L Normal 98-107 [facility] Comment on above: Performed By: #### F T4, PSASC #### [facility] [address] [place] [address] Dr. Cole Echeverria CO2 [Moles/Vol] 29.3 mmol/L Normal 21.0-32.0 [facility] Comment on above: Performed By: #### F T4, PSASC #### [facility] [address] [address] [address] Cole Echeverria Creatinine [Mass/Vol] 2.25 mg/dL Critically high 0.70-1.30 [facility] Comment on above: Performed By: #### F T4, PSASC #### [facility] [address] [address] [address] Cole Echeverria EGFR-AF [place] 35 mL/min/1.73m2 Critically low >=60 [facility] Comment on above: Performed By: #### F T4, PSASC #### [facility] [address] [place] [address] Dr. Cole Echeverria EGFR-NON AF [place] 29 mL/min/1.73m2 Critically low >=60 [facility] Comment on above: Performed By: #### F T4, PSASC #### [facility] [address] [place] [address] Dr. Cole Echeverria Globulin (S) [Mass/Vol] 4.3 g/dL Normal [facility] Comment on above: Performed By: #### F T4, PSASC #### [facility] [address] [place] [address] Dr. Cole Echeverria Glucose [Mass/Vol] 116 mg/dL Critically high 74-106 [facility] Comment on above: Performed By: #### F T4, PSASC #### [facility] [address] [place] [address] Dr. Cole Echeverria Potassium [Moles/Vol] 5.1 mmol/L Normal 3.5-5.1 [facility] Comment on above: Performed By: #### F T4, PSASC #### [facility] [address] [address] [address] Cole Echeverria Protein [Mass/Vol] 7.2 g/dL Normal 6.4-8.2 [facility] Comment on above: Performed By: #### F T4, PSASC #### [facility] [address] [place] [address] Dr. Cole Echeverria Sodium [Moles/Vol] 137 mmol/L Normal 136-145 [facility] Comment on above: Performed By: #### F T4, PSASC #### [facility] [address] [place] [address] Dr. Cole Echeverria Urea nitrogen [Mass/Vol] 49.0 mg/dL Critically high 7.0-18.0 [facility] Comment on above: Performed By: #### F T4, PSASC #### [facility] [address] [place] [address] Dr. Cole Echeverria Urea nitrogen/Creatinine [Mass ratio] 21.8 mg/mg Normal [facility] Comment on above: Performed By: #### F T4, PSASC #### [facility] [address] [place] [address] Dr. Cole Echeverria PROTIMEon 06-22-2022 INR Coag (PPP) [Relative time] 1.06 {INR} Normal [facility] Comment on above: Performed By: #### T SH, FT3 #### [facility] [address] [place] [address] Dr. Cole Echeverria INR GUIDELINES SEE BELOW Normal [facility] Comment on above: Result Comment: MÓNICA RED INR: 2.0 - 3.0 CONDITIONS NOT LISTED BELOW 2.5 - 3.5 FOR PROSTHETIC HEART VALVE REPLACEMENT 2.5 - 3.5 RECURRENT THROMBOSIS Performed By: #### T SH, FT3 #### [facility] [address] [place] [address] Dr. Cole Echeverria PT Coag (PPP) [Time] 11.4 s Normal 9.0-11.[address] [facility] Comment on above: Performed By: #### T SH, FT3 #### [facility] [address] [place] [address] Dr. Cole Echeverria PTTon 06-22-2022 aPTT Coag (Bld) [Time] 33.9 s Normal 22.3-36.2 [facility] Comment on above: Performed By: #### T SH, FT3 #### [facility] [address] [address] [address] Cole Echeverria TROPONIN, HIGH SENSITIVITYon 06-22-2022 HSTROP 345.5 pg/mL Critically high 4.0-76.1 [facility] Comment on above: Result Comment: CUT- OFF POINTS HAVE BEEN ESTABLISHED BASED ON THE FOURTH UNIVERSAL DEFINITIONS OF MYOCARDIAL INFARCTION. THE UPPER REFERENCE LIMIT (URL) OF TROPONIN, DEFINED THE 99TH PERCENTILE OF cTnI DISTRIBUTION IN A REFERENCE POPULATION, HAS BEEN CONFIRMED THE DECISION THRESHOLD FOR DC DIAGNOSIS. Performed By: #### F T4, PSASC #### [facility] [address] [address] [address] Cole Echeverria US JUAREZ DOP LEG [...] LAYO DAVISON Date: 2022-06-22 19:[address] [facility] XR CHEST 1 Von 06-22-2022 XR CHEST 1 V ONE-VIEW CHEST RADIOGRAPH, 06/22/2022 4:32 PM EDT COMPARISON: None. CLINICAL HISTORY: SHORTNESS OF BREATH Findings and impression: 1. Borderline pulmonary venous hypertension/pulmonary vascular congestion. 2. Borderline heart size. 3. No acute osseous abnormality. Electronically authenticated by: Richard PATRICIA Date: 2022-06-22 17:48 Normal [facility] CBC AUTO DIFFon 04-05-2022 BASO # 0.0 103/ul Normal 0.0-0.1 [facility] Comment on above: Performed By: #### T SH, FT3 #### [facility] [address] [address] [address] Cole Echeverria Basophils/100 WBC (Bld) 0.4 % Normal 0.2-2.[address] [facility] Comment on above: Performed By: #### T SH, FT3 #### [facility] [address] [place] [address] Dr. Cole Echeverria EO # 0.2 103/ul Normal 0.0-0.7 [facility] Comment on above: Performed By: #### T SH, FT3 #### [facility] [address] [place] [address] Dr. Cole Echeverria Eosinophils/100 WBC (Bld) 2.3 % Normal 0.9-7.[address] [facility] Comment on above: Performed By: #### T SOPHIE, FT3 #### [facility] [address] [place] [address] Dr. Cole Echeverria Erythrocyte distribution width (RBC) [Ratio] 13.0 % Normal 11.0-15.[address] [facility] Comment on above: Performed By: #### T SOPHIE, FT3 #### [facility] [address] [place] [address] Dr. Cole Echeverria Hematocrit (Bld) [Volume fraction] 45.7 % Normal 42.0-54.0 [facility] Comment on above: Performed By: #### T SOPHIE, FT3 #### [facility] [address] [place] [address] Dr. Cole Echeverria Hemoglobin (Bld) [Mass/Vol] 14.4 g/dL Normal 14.0-18.[address] [facility] Comment on above: Performed By: #### T SOPHIE, FT3 #### [facility] [address] [place] [address] Dr. Cole Echeverria IG # 0.02 10e3/ul Normal 0.00-0.[address] [facility] Comment on above: Performed By: #### T SOPHIE, FT3 #### [facility] [address] [place] [address] Dr. Cole Echeverria IG % 0.3 % Normal 0.0-0.[address] [facility] Comment on above: Performed By: #### T SOPHIE, FT3 #### [facility] [address] [place], [place] [id number] Dr. Cole Echeverria LYMPH # 1.8 103/ul Normal 1.2-3.[address] [facility] Comment on above: Performed By: #### T SH, FT3 #### [facility] [address] [place] [address] Dr. Cole Echeverria Lymphocytes/100 WBC (Bld) 22.6 % Normal 20.5-60.[address] [facility] Comment on above: Performed By: #### T SH, FT3 #### [facility] [address] [place] [address] Dr. Cole Echeverria MANUAL DIFF REQ NO Normal [facility] Comment on above: Performed By: #### T SOPHIE, FT3 #### [facility] [address] [place] [address] Dr. Cole Echeverria MCH (RBC) [Entitic mass] 31.1 pg Normal 25.9-34.[address] [facility] Comment on above: Performed By: #### T SOPHIE, FT3 #### [facility] [address] [place] [address] Dr. Cole Echeverria MCHC (RBC) [Mass/Vol] 31.5 g/dL Normal 29.9-35.[address] [facility] Comment on above: Performed By: #### T SOPHIE, FT3 #### [facility] [address] [place] [address] Dr. Cole Echeverria MCV (RBC) [Entitic vol] 98.7 fL Critically high 80.0-94.[address] [facility] Comment on above: Performed By: #### T SOPHIE, FT3 #### [facility] [address] [place] [address] Dr. Cole Echeverria MONO # 0.5 103/ul Normal 0.3-0.[address] [facility] Comment on above: Performed By: #### T SOPHIE, FT3 #### [facility] [address] [place] [address] Dr. Cole Echeverria Monocytes/100 WBC (Bld) 5.7 % Normal 1.7-12.[address] [facility] Comment on above: Performed By: #### T SOPHIE, FT3 #### [facility] [address] [place] [address] Dr. Cole Echeverria NEUT # 5.4 103/ul Normal 1.4-6.[address] [facility] Comment on above: Performed By: #### T SH, FT3 #### [facility] [address] [place] [address] Dr. Cole Echeverria Neutrophils/100 WBC (Bld) 68.7 % Normal 43.0-75.[address] [facility] Comment on above: Performed By: #### T SH, FT3 #### [facility] [address] [place] [address] Dr. Cole Echeverria Platelet mean volume (Bld) [Entitic vol] 11.2 fL Normal 9.5-13.5 [facility] Comment on above: Performed By: #### T SOPHIE, FT3 #### [facility] [address] [place] [address] Dr. Cole Echeverria PLT 242 103/ul Normal 150-[address] [facility] Comment on above: Performed By: #### T SOPHIE, FT3 #### [facility] [address] [place] [address] Dr. Cole Echeverria RBC 4.63 106/ul Critically low 4.70-6.10 [facility] Comment on above: Performed By: #### T SH, FT3 #### [facility] [address] [place] [address] Dr. Cole Echeverria WBC 7.8 103/ul Normal 4.0-11.[address] [facility] Comment on above: Performed By: #### T SH, FT3 #### [facility] [address] [place] [address] Dr. Cole Echeverria FREE T3on 04-05-2022 FREE T3 1.39 pg/mlL Critically low 2.18-3.98 [facility] Comment on above: Performed By: #### B MP, ALT, AST, TSH, FT3, LIPID #### [facility] [address] [place] [address] Dr. Cole Echeverria FREE T4on 04-05-2022 Free T4 [Mass/Vol] 1.47 ng/dL Critically high 0.76-1.46 [facility] Comment on above: Performed By: #### F T4, PSASC #### [facility] [address] [place] [address] Dr. Cole Echeverria GLYCOHEMOGLOBIN A1Con 2021 ADA RECOMMENDATION SEE BELOW Normal [facility] Comment on above: Result Comment: ADA RECOMMENDED LIMIT 4.0 - 6.0 ADA THERAPEUTIC TARGET < 7.0 ACTION SUGGESTED > 7.0 Performed By: #### T SH, FT3 #### [facility] [address] [place] [address] Dr. Cole Echeverria Glucose [Mass/Vol] 103 mg/dL Normal [facility] Comment on above: Performed By: #### T SH, FT3 #### [facility] [address] [place] [address] Dr. Cole Echeverria HbA1c (Bld) [Mass fraction] 5.2 % Normal 4.5-6.2 [facility] Comment on above: Performed By: #### T SH, FT3 #### [facility] [address] [place] [address] Dr. Cole Echeverria LIPID PROFILEon 04-05-2022 CHOL-HDL RATIO NORM SEE BELOW Normal [facility] Comment on above: Result Comment: 3.3 - 4.4 LOW RISK 4.4 - 7.1 AVERAGE RISK 7.1 - 11.0 MODERATE RISK >11.0 HIGH RISK Performed By: #### T SH, FT3 #### [facility] [address] [place] [address] Dr. Cole Echeverria Cholesterol [Mass/Vol] 251 mg/dL Critically high <=200 [facility] Comment on above: Performed By: #### T SH, FT3 #### [facility] [address] [place] [address] Dr. Cole Echeverria Cholesterol in HDL [Mass/Vol] 36 mg/dL Critically low 40-60 [facility] Comment on above: Performed By: #### T SH, FT3 #### [facility] [address] [place] [address] Dr. Cole Echeverria Cholesterol in LDL [Mass/Vol] 189.8 mg/dL Normal [facility] Comment on above: Performed By: #### T SH, FT3 #### [facility] [address] [place] [address] Dr. Cole Echeverria Cholesterol.total/Ch olesterol in HDL [Mass ratio] 7.0 {ratio} Normal [facility] Comment on above: Performed By: #### T SH, FT3 #### [facility] [address] [place] [address] Dr. Cole Echeverria HDL NORMAL > or = 60 mg/dl - LO W CARDIOVASCULAR RISK <40 mg/dl - HIGH CARDIOVASCULAR RISK Normal [facility] Comment on above: Performed By: #### T SH, FT3 #### [facility] [address] [place] [address] Dr. Cole Echeverria LDL CALC NORMAL SEE BELOW Normal [facility] Comment on above: Result Comment: <100 mg/dl OPTIMAL 100 - 129 mg/dl NEAR OR ABOVE OPTIMAL 130 - 159 mg/dl BORDERLINE HIGH 160 - 189 mg/dl HIGH >190 mg/dl VERY HIGH Performed By: #### T SH, FT3 #### [facility] [address] [place] [address] Dr. Cole Echeverria Triglyceride [Mass/Vol] 126 mg/dL Normal <=150 [facility] Comment on above: Performed By: #### T SH, FT3 #### [facility] [address] [place] [address] Dr. Cole Echeverria VLDL CALC 25.2 mg/dL Normal [facility] Comment on above: Performed By: #### T SH, FT3 #### [facility] [address] [place] [address] Dr. Cole Echeverria PROF CHEM 8 (BAS METB)on Anion gap [Moles/Vol] 11.8 mmol/L Normal [facility] Comment on above: Performed By: #### B MP, ALT, AST, TSH, FT3, LIPID #### [facility] [address] [place] [address] Dr. Cole Echeverria Calcium [Mass/Vol] 8.9 mg/dL Normal 8.5-10.1 [facility] Comment on above: Performed By: #### B MP, ALT, AST, TSH, FT3, LIPID #### [facility] [address] [address] [address] Cole Echeverria Chloride [Moles/Vol] 104 mmol/L Normal 98-[address] [facility] Comment on above: Performed By: #### B MP, ALT, AST, TSH, FT3, LIPID #### [facility] [address] [address] [address] Cole Echeverria CO2 [Moles/Vol] 29.9 mmol/L Normal 21.0-32.0 [facility] Comment on above: Performed By: #### B MP, ALT, AST, TSH, FT3, LIPID #### [facility] [address] [address] [address] Cole Echeverria Creatinine [Mass/Vol] 1.35 mg/dL Critically high 0.70-1.30 [facility] Comment on above: Performed By: #### B MP, ALT, AST, TSH, FT3, LIPID #### [facility] [address] [address] [address] Cole Echeverria EGFR-AF [place] >60 Normal >=60 [facility] Comment on above: Performed By: #### B MP, ALT, AST, TSH, FT3, LIPID #### [facility] [address] [address] [address] Cole Echeverria EGFR-NON AF [place] 52 mL/min/1.73m2 Critically low >=[address] [facility] Comment on above: Performed By: #### B MP, ALT, AST, TSH, FT3, LIPID #### [facility] [address] [address] [address] Cole Echeverria Glucose [Mass/Vol] 91 mg/dL Normal 74-106 [facility] Comment on above: Performed By: #### B MP, ALT, AST, TSH, FT3, LIPID #### [facility] [address] [address] [address] Cole Echeverria Potassium [Moles/Vol] 4.7 mmol/L Normal 3.5-5.1 [facility] Comment on above: Performed By: #### B MP, ALT, AST, TSH, FT3, LIPID #### [facility] [address] [place] [address] Dr. Cole Echeverria Sodium [Moles/Vol] 141 mmol/L Normal 136-145 [facility] Comment on above: Performed By: #### B MP, ALT, AST, TSH, FT3, LIPID #### [facility] [address] [place] [address] Dr. Cole Echeverria Urea nitrogen [Mass/Vol] 35.0 mg/dL Critically high 7.0-18.0 [facility] Comment on above: Performed By: #### B MP, ALT, AST, TSH, FT3, LIPID #### [facility] [address] [place] [address] Dr. Cole Echeverria Urea nitrogen/Creatinine [Mass ratio] 25.9 mg/mg Normal [facility] Comment on above: Performed By: #### B MP, ALT, AST, TSH, FT3, LIPID #### [facility] [address] [place] [address] Dr. Cole Alanis 04-05-2022 AST [Catalytic activity/Vol] 31 U/L Normal 15-37 [facility] Comment on above: Performed By: #### T SH, FT3 #### [facility] [address] [place] [address] Dr. Cole CESARPTon 04-05-2022 ALT [Catalytic activity/Vol] 26 U/L Normal 16-63 [facility] Comment on above: Performed By: #### B MP, ALT, AST, TSH, FT3, LIPID #### [facility] [address] [place] [address] Dr. Cole Echeverria TSHon 04-05-2022 TSH 0.944 uIU/mL Normal 0.358-3.740 [facility] Comment on above: Performed By: #### B MP, ALT, AST, TSH, FT3, LIPID #### [facility] [address] [place] [address] Dr. Cole Echeverria TSH RANGE SEE BELOW Normal [facility] Comment on above: Result Comment: <0.3 4 UIU/ml HYPERTHYROID 0.34-5.60 UIU/ml EUTHYROID >5.60 UIU/ml HYPOTHYROID Performed By: #### B MP, ALT, AST, TSH, FT3, LIPID #### [facility] [address] [address] [address] Cole Echeverria US SCROTUMon 02-27-2022 US [...] GAMBOA Date: 2022-02-27 08:[address] [facility] Vital Signs Date Time Vital Sign Value Performing Clinician Facility 01-17-2024 11:49-0400 Body height 180.3 cm Gumaro Treviño DO Work Phone: [facility] 01-17-2024 11:49-040 Body mass index (BMI) [Ratio] 51.33 kg/m2 Gumaro Treviño DO Work Phone: [facility] 01-17-2024 11:49-040 Body weight 166.92 kg Gumaro Treviño DO Work Phone: [facility] 01-17-2024 11:49-040 Diastolic blood pressure 86 mm[Hg] Gumaro Treviño DO Work Phone: [facility] 01-17-2024 11:49-0400 Heart rate 68 /min Gumaro Treviño DO Work Phone: [facility] 01-17-2024 11:49-0400 Systolic blood pressure 140 mm[Hg] Gumaro Treviño DO Work Phone: [facility] 12-06-2023 14:00-0500 Body height 180.34 cm Oscar Walters Other [facility] Other 12-06-2023 14:00-0500 Body mass index (BMI) [Ratio] 51.52 kg/m2 Oscar Sanzharitha Other [facility] Other 12-06-2023 14:00-0500 Body temperature 97.7 [degF] Oscar Selena Other [facility] Other 12-06-2023 14:00-0500 Body weight 167.56 kg Oscar Walters Other [facility] Other 12-06-2023 14:00-0500 Diastolic blood pressure 81 mm[Hg] Oscar Sanzharitha Other [facility] Other 12-06-2023 14:00-0500 Respiratory rate 20 /min Oscar Sanzharitha Other [facility] Other 12-06-2023 14:00-0500 SaO2% (BldA) [Mass fraction] 95 % Oscar Sanzharitha Other [facility] Other 12-06-2023 14:00-0500 Systolic blood pressure 136 mm[Hg] Oscar Selena Other [facility] Other 01-04-2023 11:33-0500 Body height 180.34 cm Jorge A Naderer Work Phone: [facility] 250 DO Work Phone: 01-04-2023 11:33-0500 Body mass index (BMI) [Ratio] 49.51 kg/m2 Jorge A Naderer Work Phone: [facility] 250 DO Work Phone: 01-04-2023 11:33-0500 Body surface area Derived from formula 2.69 m2 Jorge A Naderer Work Phone: [facility] 250 DO Work Phone: 01-04-2023 11:33-0500 Body weight 161.03 kg Jorge A Naderer Work Phone: [facility] 250 DO Work Phone: 01-04-2023 11:33-0500 Diastolic blood pressure 70 mm[Hg] Jorge A Naderer Work Phone: [facility] 250 DO Work Phone: 01-04-2023 11:33-0500 Heart rate 64 /min Jorge A Naderer Work Phone: [facility] 250 DO Work Phone: 01-04-2023 11:33-0500 Systolic blood pressure 136 mm[Hg] Jorge A Naderer Work Phone: [facility] 250 DO Work Phone: 10-12-2022 14:00-0500 Body height 180.34 cm Oscar Walters Other [facility] Other 10-12-2022 14:00-0500 Body mass index (BMI) [Ratio] 49.67 kg/m2 Oscar Walters Other [facility] Other 10-12-2022 14:00-0500 Body temperature 96.3 [degF] Oscar Walters Other [facility] Other 10-12-2022 14:00-0500 Body weight 161.57 kg Oscar Walters Other [facility] Other 10-12-2022 14:00-0500 Diastolic blood pressure 73 mm[Hg] Oscar Walters Other [facility] Other 10-12-2022 14:00-0500 Respiratory rate 20 /min Oscar Walters Other [facility] Other 10-12-2022 14:00-0500 SaO2% (BldA) [Mass fraction] 95 % Oscar Walters Other [facility] Other 10-12-2022 14:00-0500 Systolic blood pressure 126 mm[Hg] Oscar Walters Other [facility] Other 08-31-2022 17:40-0400 Body height 180.34 cm Oscar Walters Other [facility] Other 08-31-2022 17:40-0400 Body mass index (BMI) [Ratio] 48.98 kg/m2 Oscar Walters Other [facility] Other 08-31-2022 17:40-0400 Body temperature 96.4 [degF] Oscar Walters Other [facility] Other 08-31-2022 17:40-0400 Body weight 159.3 kg Oscar Walters Other [facility] Other 08-31-2022 17:40-0400 Diastolic blood pressure 82 mm[Hg] Oscar Walters Other [facility] Other 08-31-2022 17:40-0400 Respiratory rate 20 /min Oscar Walters Other [facility] Other 08-31-2022 17:40-0400 SaO2% (BldA) [Mass fraction] 97 % Oscar Walters Other [facility] Other 08-31-2022 17:40-0400 Systolic blood pressure 144 mm[Hg] Oscar Walters Other [facility] Other 07-12-2022 11:36-0400 Body height 180.34 cm Jorge Guerrero Naderer Work Phone: [employer] 250 DO Work Phone: 07-12-2022 11:36-0400 Body mass index (BMI) [Ratio] 51.05 kg/m2 Jorge Masters Naderer Work Phone: [facility] 250 DO Work Phone: 07-12-2022 11:36-0400 Body surface area Derived from formula 2.73 m2 Jorge Masters Naderer Work Phone: [employer] 250 DO Work Phone: 07-12-2022 11:36-0400 Body weight 166.02 kg Jorge Masters Naderer Work Phone: [employer] [facility] 250 DO Work Phone: 07-12-2022 11:36-0400 Diastolic blood pressure 70 mm[Hg] Jorge Masters Naderer Work Phone: [facility] 250 DO Work Phone: 07-12-2022 11:36-0400 Heart rate 100 /min Jorge Masters Naderer Work Phone: [facility] 250 DO Work Phone: 07-12-2022 11:36-0400 Systolic blood pressure 110 mm[Hg] Jorge Masters Naderer Work Phone: [facility] 250 DO Work Phone: 06-22-2022 00:00-0400 65 1 Jorge A Naderer Work Phone: [facility] 250 DO Work Phone: Comment on above: [id number] Encounters Encounter Date Encounter Type Care Provider Facility Start: 06-02-2024 End: 06-02-2024 ambulatory MARIE SALCEDO Not Available Start: 05-27-2024 End: 05-27-2024 ambulatory JORGE NADERER Not Available Start: 02-25-2024 End: 02-25-2024 ambulatory JORGE NADERER Not Available Start: 01-17-2024 End: 01-17-2024 ambulatory [facility] Ambulatory Start: 01-17-2024 End: 01-17-2024 Office outpatient visit 15 minutes [facility] DO Work Phone: [facility] Comment on above: Deep vein thrombosis (DVT) of distal vein of lower extremity, unspecified chronicity, unspecified laterality ([facility]); Pulmonary embolism, unspecified chronicity, unspecified pulmonary embolism type, unspecified whether acute cor pulmonale present ([facility]); Essential hypertension; BMI 50.0-59.9, adult [...] 12-06-2023 End: 12-06-2023 ambulatory Oscar Sanzharitha Other [facility] Other Start: 12-06-2023 Office outpatient visit 15 [...] visit 25 minutes Jorge Camejo Work Phone: [facility] 250 DO Work Phone: Start: 01-04-2023 ambulatory Gumaro Treviño Facilit y: Start: 12-07-2022 End: 12-08-[address] JORGE CAMEJO Facility:[facility] Start: 12-04-2022 End: 12-04-2022 ambulatory Oscar Walters Other [facility] Other Start: 12-04-2022 Telephone encounter Oscar aSnzharitha [facility] Start: 10-12-2022 End: 10-12-2022 ambulatory Oscar Sanzharitha Other [facility] Other Start: 10-12-2022 Office outpatient visit 25 minutes Oscar Sanzharitha [facility] Start: 10-03-2022 End: 10-04-[address] JORGE CAMEJO Facility:[facility] Start: 09-14-2022 End: 09-15-[address] JORGE CAMEJO Facility:[facility] Start: 09-04-2022 End: 09-04-2022 ambulatory Oscar Walters Other [facility] [employer] Other Start: 09-04-2022 Telephone encounter Oscar Walters [facility] Start: 08-31-2022 End: 08-31-2022 ambulatory Oscar Walters Other [facility] [employer] Other Start: 08-31-2022 Office outpatient visit 25 minutes Oscar Walters [facility] Start: 07-12-2022 End: 07-13-[address] GUMARO TREVIÑO Facility:[facility] Start: 07-12-2022 Office outpatient visit 40 minutes Jorge Camejo Work Phone: [facility] 250 DO Work Phone: Start: 07-12-2022 ambulatory Gumaro Treviño Facilit y:[id number] Start: 06-24-2022 ambulatory Gumaro Treviño Facilit y:[id number] Start: 06-23-2022 ambulatory Gumaro Treviño Facilit y:[facility] Start: 06-23-2022 ambulatory Gumaro Treviño Facilit y:[id number] Start: 06-23-[address] Jorge Camejo Facility:[id number] Start: 06-23-2022 End: 06-24-2022 Evaluation and management of inpatient Patel Ugarte Facility:[facility] Start: 06-22-2022 End: 06-22-[address] [...] 07-25-2018 End: 07-26-2018 Patient encounter DEFAULT PHYSICIAN Facility:[facility] Procedures Date Procedure Procedure Detail Performing Clinician Start: 12-12-2023 Injection 1 tendon sheath/ligament aponeurosis Jr. Marie Palmer DO Work Phone: Start: 04-05-[address] JORGE HILTON Comment on above: Performed By: #### F T4, PSASC #### [facility] [address] [place] [address] Dr. Cole Echeverria Arthroscopy of knee Jorge hilton Work Phone: Colonoscopy Jorge Camejo Work Phone: Removal of thrombus Jorge hilton Work Phone: Plan of Treatment Date Care Activity Detail Author Start: 02-25-2024 End: 02-25-2024 Patient encounter procedure 02/25/2024 1:00 PM EDT Office Visit [facility] [address] [place] [id number] Jorge Camejo MD [address] [place] [id number] [facility] Start: 01-17-2024 FUV, Provider: Gumaro Treviño, Status: Pen, Time: 11:20 AM [facility], Provider: Gumaro Treviño, Status: Pen, Time: 11:[address] [facility] 250 DO Work Phone: Start: 01-09-2024 End: 01-09-2024 Patient encounter procedure 01/09/2024 2:00 PM EST Office Visit [facility] [address] [place] [id number] Jr. Marie Palmer, DO [address] [place], [place] [id number] [facility] Start: 12-12-2023 End: 12-12-2023 Patient encounter procedure 12/12/2023 2:00 PM EST Office Visit [facility] [address] [place] [phone] Jr. Marie Palmer, DO [address] [facility] [address] [place] [address] [facility] Start: 07-06-2023 COVID-19 Vaccine ( season) COVID-19 Vaccine ( season) [facility] Start: 01-11-2023 FUV, Provider: Gumaro Treviño, Status: Pen, Time: 11:10 AM [facility], Provider: Gumaro Treviño, Status: Pen, Time: 11:10 AM [facility] [employer] 250 DO Work Phone: Start: 08-05-2016 Pneumococcal Vaccine: 65+ Years (2 - PCV) Pneumococcal Vaccine: 65+ Years (2 - PCV) [facility] Start: 1996 Zoster Vaccines (1 of 2) Zoster Vaccines (1 of 2) [facility] Start: 1968 DTaP/Tdap/Td Vaccines (1 - Tdap) DTaP/Tdap/Td Vaccines (1 - Tdap) [facility] Start: 1964 Diabetes mellitus screening Diabetes Screening [facility] Start: 1964 Hepatitis C screening Hepatitis C Screening [facility] Start: 1946 Lipid panel Lipid Panel [facility] Start: 1946 Medicare Annual Wellness (AWV) Medicare Annual Wellness (AWV) [facility] Start: 1946 Medicare Annual Wellness Visit Medicare Annual Wellness Visit (AWV) [facility] Start: 1946 Thyroid stimulating hormone measurement TSH Level [facility] Immunizations Immunization Date Immunization Notes Care Provider Fa david 10-01-2022 Fluad Quadrivalent 0 .5 ML Intramuscular Prefilled Syringe Jorge Camejo Work Phone: [facility] 250 DO Work Phone: 10-19-2021 Pfizer-BioNTech COVI D-19 Vacc 30 MCG/0.3ML Intramuscular Suspension Jorge Masters Naderer Work Phone: [facility] 07-06-2021 influenza, seasonal, injectable Jorge Masters Naderer Work Phone: [facility] 250 DO Work Phone: Comment on above: Series: 01-11-2021 Moderna COVID-19 Vac cine 100 MCG/0.5ML Intramuscular Suspension Jorge Masters Naderer Work Phone: [facility] 250 DO Work Phone: 12-14-2020 Moderna COVID-19 Vac cine 100 MCG/0.5ML Intramuscular Suspension Jorge Masters Naderer Work Phone: [facility] 250 DO Work Phone: 08-05-2015 pneumococcal polysaccharide vaccine, 23 valent Jorge Coatsr Work Phone: [facility] Payers Date Payer Category Payer Unknown 2022 Self-pay 2011 Medicare [id number] 1959 Medicare [id number] 2.1 [id number] 1959 Medicare [id number] 1959 Unknown [id number] 2. 16.840.1.325590.19 1946 Unknown [id number] 2.16. 840.1.257489.3.579.2.356 1946 Unknown [id number] 2.16. 840.1.016933.3.579.2.356 1946 Unknown [id number] 2.16. 840.1.896538.3.579.2.356 1946 Unknown [id number] 2.16. 840.1.099046.3.579.2.356 1946 Unknown [id number] 2.16. 840.1.808327.3.579.2.356 1946 Unknown [id number] 2.16.84 0.1.618066.3.579.2.593 1946 Unknown [id number] 2.16.84 0.1.604987.3.579.2.593 1946 Unknown [id number] 2.16.84 0.1.364505.3.579.2.593 1946 Unknown [id number] 2.16.84 0.1.022153.3.579.2.593 1946 Unknown [id number] 2.16.84 0.1.343628.3.579.2.593 1946 Unknown [id number] 2.16.84 0.1.203186.3.579.2.593 1946 Unknown [id number] 2.16.84 0.1.745644.3.579.2.593 1946 Unknown [id number] 2.16.84 0.1.580528.3.579.2.593 1946 Unknown [id number] 2.16.84 0.1.653943.3.579.2.593 1946 Unknown [id number] 2.16.84 0.1.485242.3.579.2.593 1946 Unknown [id number] 2.16.84 0.1.124301.3.579.2.593 1946 Unknown [id number] 2.16.84 0.1.686217.3.579.2.593 1946 Unknown [id number] 2.16.8 40.1.003210.3.579.2.1244 1946 Unknown [id number] 2.16.84 0.1.084510.3.579.2.1259 1946 Unknown [id number] 2.16.84 0.1.052497.3.579.2.1259 1946 Unknown [id number] 2.16.84 0.1.681811.3.579.2.1259 1946 Unknown [id number] 2.16.84 0.1.098527.3.579.2.1259 1946 Unknown [id number] 2.16.84 0.1.200221.3.579.2.1259 1946 Unknown [id number] 2.16.84 0.1.704949.3.579.2.1259 1946 Unknown [id number] 2.16.84 0.1.594601.3.579.2.9 1946 Unknown [id number] 2.16.840 .1.655211.3.579.2.1259 Unknown [id number] 2.16.8 40.1.528260.3.579.2.531 Social History Date Type Detail Facility Start: 11-20-2023 End: 01-17-2024 No alcohol use No alcohol use [facility] Start: 11-19-2023 End: 01-17-2024 Sex Assigned At [facility] Start: 11-20-2023 End: 01-17-2024 Tobacco smoking status [facility] Ex-smoker [facility] End: 11-05-1989 [...] to any clubs or organizations such as mormon groups, unions, fraternal or athletic groups, or [...] Start: 01-17-2024 Alcohol intake Lifetime non-drinker (finding) [facility] Work Phone: Start: 01-07-2024 End: 01-17-2024 Exposure to SARS-CoV-2 (event) Not sure [facility] NEGATED: Highlighted row Denies Caffeine use Denies Caffeine use -[facility] 250 DO Work Phone: Clinical Notes 02-16-2022 [...] discussion and plan. documented in this encounter [facility] Work Phone: 01-17-2024 Instructions Krystle Husain LPN [...] 30: 153.4 Lbs documented in this encounter [facility] Work Phone: 12-12-2023 History of Present illness [...] Palmer Jr., DO documented in this encounter [facility] 12-06-2023 Evaluation note Encounter Date Diagnosis Assessment [...] with Xarelto. Shortness of breath has improved. [facility] 03-23-2023 NoteCONSULTATION CONSULTATION DATE: 01/25/2023 TO: [...] this imaging study or sooner if needed.[facility] [id number] Evaluation note* Encounter Date Diagnosis Assessment Notes [...] provoked by travel, COVID 19 and immobility. [facility] 11-10-2022 NoteCONSULTATION CONSULTATION DATE: 09/14/2022 HISTORY [...] indicated, and patient agrees with this plan.[facility] [id number] Evaluation note* Encounter Date Diagnosis Assessment Notes [...] pulmonary if shortness of breath is worse. [facility] 08-11-2022 NoteCONSULTATION CONSULTATION DATE: 06/15/2022 HISTORY [...] heel. Activities such as standing, walking and genetic technologist hours are most painful. Current medications include [...] him up in the clinic post procedure.[facility] [id number] NoteCONSULTATION CONSULTATION DATE: 03/30/2022 HISTORY OF PRESENT [...] in three months' time unless otherwise indicated. [facility] Signed and Approved by: DOMO SANCHEZ . 04/06/2022 16:04:00[facility]04-14-2022 NoteCONSULTATION PAIN MANAGEMENT CONSULTATION HISTORY [...] of care and all questions were answered. [facility] Signed and Approved by: DOMO SANCHEZ . 02/23/2022 13:58:00[facility] HospitalEvaluation noteNo InformationNortP[facility] Other Evaluation note* Diagnosis Acquired trigger finger of right little finger- Primary documented in this encounter [facility]* Diagnosis Deep vein thrombosis (DVT) of distal vein of lower extremity, unspecified chronicity, unspecified laterality (CMS/HCC) Pulmonary embolism, unspecified chronicity, unspecified pulmonary embolism type, unspecified whether acute cor pulmonale present ([facility]) Essential hypertension Unspecified essential hypertension BMI 50.0-59.9, adult ([facility]) Chronic kidney disease, unspecified CKD stage Former smoker Personal history of tobacco use, presenting hazards to health documented in this encounter [facility] Work Phone: History general Narrative - Reported* Type Description Date Medical History ACUTE KIDNEY INJURY Medical History CHF (CONGESTIVE HEART FAILURE) Medical History PULMONARY EMBOLISM ASSOCIATED WI TH COVID 19 Medical History DVT (DEEP VENOUS THROMBOSIS) Surgical History KNEE SURGERY LEFT Surgical History KNEE SURGERY RIGHT Hospitalization History ACUTE KIDNEY INJ URY, CHF, PULMONARY EMBOLISM ASSOCIATED WITH COVID 19 06/22/[address] [facility] Other Summary Purpose Family History No Family [...] Records Found Chief Complaint * 07/05/2022 [facility] [place] SP EKOS. * RAFAEL CABRAL is [...] Inj/Asp: R Jr. Marie Alonso, DO [address] [facility] [address] [place] [address] Referral ID Status Reason Start Date Expiration Date V isits Requested Visits Authorized [id number] Pending Review 12/12/2023 06/09/2024 1 1 Additional Source Comments (unrecognized sect ion and content) No Status Records FoundNo Status Records FoundNo Status Records FoundNo Status Records FoundNo Status Records FoundNo Status Records FoundNo Status Records Found INFORMATION SOURCE (unrecogn ized section and content) DATE CREATED AUTHOR 08/22/2018 [facility] DATE CREATED AUTHOR AUTHOR'S ORGANIZ ATION 12/09/2022 [facility] DATE CREATED AUTHOR AUTHOR'S ORGANIZ ATION 01/05/2023 [facility] DATE CREATED AUTHOR AUTHOR'S ORGANIZ ATION 01/06/2023 [facility] DATE CREATED AUTHOR AUTHOR'S ORGANIZ ATION 01/28/2023 [facility] DATE CREATED AUTHOR AUTHOR'S ORGANIZ ATION 01/18/2024 [facility] DATE CREATED AUTHOR AUTHOR'S ORGANIZ ATION 06/04/2024 [facility] EPIC REASON FOR VISIT (unrecogniz ed section and content) Reason Comments Pain Reason Comments Annual Exam 1yr Care Teams (unrecognized sec tion and content) Public Relations Supervisor Relationship Specialty Start Date End Date Jorge Camejo MD [address] [place] [address] PCP - General Family Medicine 12/06/23 Public Relations Supervisor Relationship Specialty Start Date End Date Jorge Camejo MD [address] [place] [address] PCP - General Family Medicine 12/06/23 Public Relations Supervisor Relationship Specialty Start Date End Date Jorge Camejo MD [address] [place] [address] PCP - General Family Medicine 01/17/24 FOR [...] BE BASED ON THE PRIMARY CLINICAL RECORDS. [facility] [employer] [facility]. provides no warranty or guarantee of the accuracy or completeness of information in this document.
== END 2024-08-19 15:44 | disposition home or self-care (01) ==
LOC: WC 15:43
PROVIDERS: PCP Family Medicine; Visit Provider Physician Assistant
DX: I87.312 Chronic venous hypertension (idiopathic) with ulcer of left lower extremity (principal); L97.822 Non-pressure chronic ulcer of other part of left lower leg with fat layer exposed
CPT/HCPCS: G0463

== ENCOUNTER 2024-09-17 14:55 | Outpatient (OUT) | payer MEDICARE, OTHER, SELFPAY | END 2024-09-17 14:56 | disposition home or self-care (01) | LOC: WC 14:55 | PROVIDERS: PCP Family Medicine; Visit Provider Physician Assistant | DX: I87.312 Chronic venous hypertension (idiopathic) with ulcer of left lower extremity (principal); L97.822 Non-pressure chronic ulcer of other part of left lower leg with fat layer exposed | CPT/HCPCS: G0463 ==

== ENCOUNTER 2024-10-22 14:01 | Outpatient (OUT) | payer MEDICARE, OTHER, SELFPAY ==
--- NOTE | 2024-10-22 14:08 | PM.CN ---
Consult Note: HPI Data of Consult Patient: known to practice within the last 3 years Requesting Physician: Althea Haney NP Primary Care Provider: Jorge Ortez MD Consult Narrative Reason for consult: f/u Narrative: Eleuterio Cabral a pleasant 77 year old male presents for evaluation and management of chronic pain in low back buttocks and groin, as well as left knee pain. Today rating pain 3-4/10 in left knee deep ache constant, worse with weight bearing, standing, walking, activity. Patient has been doing well on tramadol and lyrica, without side effects. Has been decreasing tramadol to BID PRN without increased pain or decline in functional ability per pt. cc:: CC: Althea Haney NP Review of Systems ROS Status of ROS 10 or more systems reviewed and unremarkable except as noted in history and below Musculoskeletal Reports: back pain and joint pain Meds Home Medications and Allergies Home Medications ?Medication ?Instructions ?Recorded ?Confirmed ?Type furosemide 40 mg tablet 40 mg PO DAILY 05/03/23 05/03/23 History levothyroxine 150 mcg capsule 150 mcg PO DAILY 05/03/23 05/03/23 History pregabalin 75 mg capsule (Lyrica) 75 mg PO BID 05/03/23 05/03/23 History rivaroxaban 20 mg tablet (Xarelto) 20 mg PO DAILY 05/03/23 05/03/23 History spironolactone 25 mg tablet 25 mg PO BID 05/03/23 05/03/23 History tramadol 50 mg tablet 50 mg PO .BID-TID PRN pain #80 tabs 07/24/24 Rx Allergies Allergy/AdvReac Type Severity Reaction Status Date / Time No Known Drug Allergies Allergy Verified 05/03/23 15:29 Exam Constitutional Documenting provider has reviewed patient's vital signs: yes Common normals: no apparent distress, oriented x3, healthy appearing, alert and well nourished General appearance: cooperative Nutritional appearance: obese HENMT Common normals: normocephalic, hearing grossly normal bilaterally and moist oral mucous membranes Head and scalp: normocephalic Eye Common normals: PERRL Pupil: PERRL Neck & C-Spine Common normals: full ROM General: normal visual inspection Chest Common normals: inspection of chest normal Respiratory Common normals: normal respiratory effort, no retractions and no use of accessory muscles Back & Pelvis Lumbar spine/lower back: ROM limited, pain with ROM and straight leg raise negative bilaterally Extremity Common normals: normal to inspection Left lower extremity: knee joint Other: left knee enlarged diameter, crepitus noted, pain with medial and lateral stress testing, mild edema no instability Neuro Common normals: oriented x3, CN's II-XII intact bilaterally, moves all extremities, no focal motor deficits, no sensory deficits noted and deep tendon reflexes 2+ bilaterally Sensorium/orientation: alert Gait (neuro): antalgic and assistive device used walker Motor exam: strength 5/5 throughout and no movement abnormalities noted Psych Common normals: mental status grossly normal, thought process normal, cooperative, affect normal, speech normal and activity/motor behavior normal Speech: normal speech Thought process: normal thought process Results Additional Findings Additional findings: If on a controlled substance or opioids, I have checked an [place]AR[place] report on this patient and there are no aberrancies noted in the prescribing history.??If on a controlled substance or opioid a drug screen was completed and reviewed within the last year, and if there has not been a drug screen completed we ordered one today to monitor higher risk, state monitored pain medication use. As part of providing excellent, safe, comprehensive care, the following was completed at our patient's visit: 1. A medication reconciliation and review to ensure accurate knowledge of current/active medications, including asking our patients to inform us about any [id number] medications or herbal remedies/nutritional supplements/alternative remedies. 2. A review to specifically ensure our patients have had annual screening for screening for depression, screening for tobacco use, and screening for unhealthy alcohol use. For concerning screenings had a discussion with the patient, provided patient education, and recommended follow-up with primary care provider when appropriate. If patient noted with a risk of falling, they received education on strength, gait, and balance training to prevent future risk of falling. Assessment and Plan Assessment and Plan (1) Lumbar spondylosis: (2) Lumbar stenosis: (3) Encounter for long-term opiate analgesic use: Assessment and Plan: I feel these medications are improving the patient's quality of life and allow them to tolerate activities of daily living as well as participate in recreational activity.? The patient does not report intolerable side effects. The patient is NOT opioid naive and non-pharmacologic and non-opioid treatment has failed to significantly relieve the patient's pain and improve functionality. The patient has a diagnosis that is related to a somatic or visceral pain etiology. ? ?? I reviewed with the patient the potential risks and side effects with the use of? opioid medications including but not limited to respiratory depression,? sedation, and even . I verified the patient has access to naloxone should? these effects occur. I advised the patient to avoid the use of any other? sedation substances including alcohol, THC, and benzodiazepines while? taking opioid medications due to the risk of compounding side effects and? detrimental outcomes. I reviewed the [employer]ARD OPERATOR, pain treatment agreement, urine? drug screen, and opioid start talking forms. The patient was advised to let? their family know they had Naloxone in case they would need to administer? the medication.? ?? A drug screen was completed within the last year, and no aberrancies were noted regarding their use of controlled substances. The patient understands they are subject to the terms and conditions of the pain contract that they have signed. ? ?? I have checked an OAR[place] report on this patient today and there are no aberrancies noted in the prescribing history.? (4) Osteoarthritis of left knee: (5) Left knee pain: (6) Obesity: Assessment and Plan: The patient was counseled that proper dietary changes and consistent participation in a home exercise plan can lead to weight loss. Weight loss can help to improve functionality in patients with chronic pain.? Plan pain well controlled, decrease tramadol 50mg BID PRN moderate to severe pain 60 tabs/month continues to have functional improvement and pain relief as a result of injection therapy and medication management, declining additional workup continue pregabalin 75mg BID through ordering provider f/u 3 months, sooner if needed
== END 2024-10-22 14:02 | disposition home or self-care (01) ==
LOC: PM 14:01
PROVIDERS: PCP Family Medicine; Visit Provider Nurse Practitioner
DX: M47.816 Spondylosis without myelopathy or radiculopathy, lumbar region (principal); M48.062 Spinal stenosis, lumbar region with neurogenic claudication; Z79.891 Long term (current) use of opiate analgesic; M17.12 Unilateral primary osteoarthritis, left knee; M25.562 Pain in left knee; E66.9 Obesity, unspecified
CPT/HCPCS: G0463

== ENCOUNTER 2025-01-22 14:37 | Outpatient (OUT) | payer OTHER, SELFPAY ==
--- NOTE | 2025-01-22 15:42 | P.CN_ITS ---
Consult Note: HPI Data of Consult Patient: known to practice within the last 3 years Requesting Physician: Althea Haney NP Primary Care Provider: Jorge Ortez MD Consult Narrative Reason for consult: f/u Narrative: Eleuterio Cabral a pleasant 79 year old male presents for evaluation and management of chronic pain in low back buttocks and groin, as well as left knee pain. Today rating pain 3-4/10 in left knee deep ache constant, worse with weight bearing, standing, walking, activity. Patient has been doing well on tramadol and lyrica, without side effects. Pt is interested in further weaning off of tramadol. cc:: CC: Althea Haney NP Review of Systems ROS Status of ROS 10 or more systems reviewed and unremark able except as noted in history and below Musculoskeletal Reports: back pain and joint pain Meds Home Medications and Allergies Home Medications ?Medication ?Instructions ?Recorded ?Confirmed ?Type furosemide 40 mg tablet 40 mg PO DAILY 05/03/23 05/03/23 History levothyroxine 150 mcg capsule 150 mcg PO DAILY 05/03/23 05/03/23 History pregabalin 75 mg capsule (Lyrica) 75 mg PO BID 05/03/23 05/03/23 History rivaroxaban 20 mg tablet (Xarelto) 20 mg PO DAILY 05/03/23 05/03/23 History spironolactone 25 mg tablet 25 mg PO BID 05/03/23 05/03/23 History tramadol 50 mg tablet 50 mg PO .BID-TID PRN pain #80 tabs 07/24/24 Rx tramadol 50 mg tablet See Rx Instructions .Route 11/04/24 Rx .COMPLEX PRN pain #80 tabs tramadol 50 mg tablet 50 mg PO BID PRN pain #60 tabs 12/15/24 Rx tramadol 50 mg tablet 50 mg PO BID PRN pain #60 tabs 01/22/25 Rx Allergies Allergy/AdvReac Type Severity Reaction Status Date / Time No Known Drug Allergies Allergy Verified 05/03/23 15:29 Exam Constitutional Documenting provider has reviewed patient's vital signs: yes Common normals: no apparent distress, oriented x3, healthy appearing, alert and well nourished General appearance: cooperative Nutritional appearance: obese HENMT Common normals: normocephalic, hearing grossly normal bilaterally and moist oral mucous membranes Head and scalp: normocephalic Eye Common normals: PERRL Pupil: PERRL Neck & C-Spine Common normals: full ROM General: normal visual inspection Chest Common normals: inspection of chest normal Respiratory Common normals: normal respiratory effort, no retractions and no use of accessory muscles Back & Pelvis Lumbar spine/lower back: ROM limited, pain with ROM and straight leg raise negative bilaterally Extremity Common normals: normal to inspection Left lower extremity: knee joint Other: left knee enlarged diameter, crepitus noted, pain with medial and lateral stress testing, mild edema no instability Neuro Common normals: oriented x3, CN's II-XII intact bilaterally, moves all extrem ities, no focal motor deficits, no sensory deficits noted and deep tendon reflexes 2+ bilaterally Sensorium/orientation: alert Gait (neuro): antalgic and assistive device used walker Motor exam: strength 5/5 throughout and no movement abnormalities noted Psych Common normals: mental status grossly normal, thought process normal, cooperative, affect normal, speech normal and activity/motor behavior normal Speech: normal speech Thought process: normal thought process Results Additional Findings Additional findings: If on a controlled substance or opioids, I have checked an OAR[place] report on this patient and there are no aberrancies noted in the prescribing history.??If on a controlled substance or opioid a drug screen was completed and reviewed within the last year, and if there has not been a drug screen completed we ordered one today to monitor higher risk, state monitored pain medication use. As part of providing excellent, safe, comprehensive care, the following was completed at our patient's visit: 1. A medication reconciliation and review to ensure accurate knowledge of current/active medications, including asking our patients to inform us about any [id number] medications or herbal remedies/nutritional supplements/alternative remedies. 2. A review to specifically ensure our patients have had annual screening for screening for depression, screening for tobacco use, and screening for unhealthy alcohol use. For concerning screenings had a discussion with the patient, provided patient education, and recommended follow-up with primary care provider when appropriate. If patient noted with a risk of falling, they received education on strength, gait, and balance training to prevent future risk of falling. Portions of this note may have been carried over from the previous visit and updated as appropriate. Please note this office utilizes paper charting in addition to the electronic medical record. A list of current medications, vitals, and PMH is available there as the clinical staff outside of myself do not have access to [employer] charting during the clinic day operations. As part of providing quality comprehensive care the current medications, vitals, and PMH were reviewed in the paper chart. Assessment and Plan Assessment and Plan (1) Lumbar spondylosis: (2) Lumbar stenosis: (3) Encounter for long-term opiate analgesic use: Assessment and Plan: I feel these medications are improving the patient's quality of life and allow them to tolerate activities of daily living as well as participate in recreational activity.? The patient does not report intolerable side effects. The patient is NOT opioid naive and non-pharmacologic and non-opioid treatment has failed to significantly relieve the patient's pain and improve functionality. The patient has a diagnosis that is related to a somatic or visceral pain etiology. ? ?? I reviewed with the patient the potential risks and side effects with the use of? opioid medications including but not limited to respiratory depression,? sedation, and even . I verified the patient has access to naloxone should? these effects occur. I advised the patient to avoid the use of any other? sedation substances including alcohol, THC, and benzodiazepines while? taking opioid medications due to the risk of compounding side effects and? detrimental outcomes. I reviewed the HEALTH SPECIALIST, pain treatment agreement, urine? drug screen, and opioid start talking forms. The patient was advised to let? their family know they had Naloxone in case they would need to administer? the medication.? ?? A drug screen was completed within the last year, and no aberrancies were noted regarding their use of controlled substances. The patient understands they are subject to the terms and conditions of the pain contract that they have signed. ? ?? I have checked an [place]AR[place] report on this patient today and there are no aberrancies noted in the prescribing history.? (4) Osteoarthritis of left knee: (5) Left knee pain: (6) Obesity: Assessment and Plan: The patient was counseled that proper dietary changes and consistent participation in a home exercise plan can lead to weight loss. Weight loss can help to improve functionality in patients with chronic pain.? Plan pain well controlled, encouraged pt to wean off of tramadol 50mg BID PRN moderate to severe pain 60 tabs/month as tolerated. pt to call for refills as needed continues to have functional improvement and pain relief as a result of injection therapy and medication management, declining additional workup continue pregabalin 75mg BID through ordering provider f/u 3 months, sooner if needed
== END 2025-01-22 14:38 | disposition home or self-care (01) ==
PROVIDERS: PCP Family Medicine; Visit Provider Nurse Practitioner
DX: M47.816 Spondylosis without myelopathy or radiculopathy, lumbar region (principal); M48.062 Spinal stenosis, lumbar region with neurogenic claudication; Z79.891 Long term (current) use of opiate analgesic; M17.12 Unilateral primary osteoarthritis, left knee; M25.562 Pain in left knee; E66.9 Obesity, unspecified
CPT/HCPCS: G0463

== ENCOUNTER 2025-04-16 14:19 | Outpatient (OUT) | payer OTHER, SELFPAY ==
--- OUTSIDE RECORDS SUMMARY | 2025-04-13 14:00 | XMS_ITS | Encounter Summary ---
Author Organization [facility] Address [address] [place] [address] Care Team Providers Care Rotary Drier Feeder Name Role Phone Jorge Ortez MD Primary Care Provider [phone] Reason for Visit * Reason Comments Medicare Annual Wellness Visit Subsequen t wellness Encounter Details Date Type Department Care Team (Late st Contact Info) Description 04/13/2025 2:00 PM EDT Office Visit [facility] [address] [place] [phone] Jorge Ortez MD [address] [place] [address] Medicare annual wellness visit, subsequent (Primary Dx); Class 3 severe obesity due to excess calories with serious comorbidity and body mass index (BMI) of 50.0 to 59.9 in adult ([facility]) Social History Tobacco Use Types Packs/Day Years Used Date Smoking Tobacco: Former Cigarettes 2 25 1 965 - 1989 Smokeless Tobacco: Never Humiliation, Afraid, Rape, and Kick questionnair e Answer Date Recorded Within the last year, have y ou been afraid of your partner or ex-partner? No 11/19/2023 Within the last year, have y ou been humiliated or emotionally abused in other ways by your partner or ex-partner? No Within the last year, have y ou been kicked, hit, slapped, or otherwise physically hurt by your partner or ex-partner? No 11/19/2023 Within the last year, have y ou been raped or forced to have any kind of sexual activity by your partner or ex-partner? No 11/19/2023 Social Connection and Isolat ion Panel [NHANES] Answer Date Recorded In a typical week, how many times do you talk on the phone with family, friends, or neighbors? More than three times a week 11/19/2023 How often do you get togethe r with friends or relatives? Once a week 11/19/2023 How often do you attend [facility] or rastafarian services? More than 4 times per year 11/19/2023 Do you belong to any clubs o r organizations such as hindu groups, unions, fraternal or athletic groups, or school groups? Yes 11/19/2023 How often do you attend meet ings of the clubs or organizations you belong to? More than 4 times per year 11/19/2023 Are you , , di vorced, , never , or living with a partner? 11/19/2023 AUDIT-C Answer Date Recorded Q1: How often do you have a drink containing alc ohol? Monthly or less 11/19/2023 Q2: How many drinks containi ng alcohol do you have on a typical day when you are drinking? 1 or 2 11/19/2023 Q3: How often do you have si x or more drinks on one occasion? Never 11/19/2023 Overall Financial Resource Strain (CARDIA) Answe r Date Recorded How hard is it for you to pa y for the very basics like food, housing, medical care, and heating? Not hard at all 11/19/2023 PHQ-2 Answer Date Recorded Patient Health Questionnaire-2 Score 1 04/13/2025 [facility] - Occupational Stress Questionnaire Answer Date Recorded Do you feel stress - tense, restless, nervous, or anxious, or unable to sleep at night because your mind is troubled all the time - these days? Only a little 11/19/2023 Exercise Vital Sign Answer Date Recorde d On average, how many days pe r week do you engage in moderate to strenuous exercise (like a brisk walk)? 0 days 11/19/2023 On average, how many minutes do you engage in exercise at this level? 0 min 11/19/2023 Hunger Vital Sign Answer Date Recorded Within the past 12 months, y ou worried that your food would run out before you got the money to buy more. Never true 11/19/19 24 Within the past 12 months, t he food you bought just didn't last and you didn't have money to get more. Never true 11/19/2023 PRAPARE - Transportation Answer Date Re corded In the past 12 months, has l ack of transportation kept you from medical appointments or from getting medications? No 11/05 In the past 12 months, has l ack of transportation kept you from meetings, work, or from getting things needed for daily living? No 11/19/2023 Housing Stability Vital Sign Answer Cameron e Recorded In the last 12 months, was t here a time when you were not able to pay the mortgage or rent on time? No 11/19/2023 In the last 12 months, how many places have you lived? 1 11/19/2023 In the last 12 months, was t here a time when you did not have a steady place to sleep or slept in a senior living (including now)? No 11/19/2023 Sex and Gender Information Value Date Recorded Sex Assigned at Not on file Legal Sex Male 7:30 PM EDT Gender Identity Not on file Sexual Orientation Not on file documented as of this encounter Last Filed Vital Signs Vital Sign Reading Time Taken Comments Blood Pressure 146/62 04/13/2025 2:11 PM EDT Pulse 88 04/13/2025 2:11 PM EDT Temperature 36.4 C (97.5 F) 04/13/2025 2:11 PM EDT Respiratory Rate 20 04/13/2025 2:11 PM EDT Oxygen Saturation 97% 04/13/2025 2:11 PM EDT Inhaled Oxygen Concentration - - Weight 176 kg (387 lb) 04/13/2025 2:11 PM EDT Height 180.3 cm (5' 11 ) 04/13/2025 2:11 PM EDT Body Mass Index 53.98 04/13/2025 2:11 PM EDT documented in this encounter Functional Status * Over the past 2 weeks, how often have you been bothered by any of the following problems? Question Answer Date of Assessment Author Little interest or pleasure in doing things Several days 04/13/2025 2:00 PM EDT JONH QUIROZ Feeling down, depressed, or hopeless Not at all 04/13/2025 2:00 PM EDJONH JACKMAN Patient Health Questionnaire -2 Score 1 04/13/2025 2:00 PM EDJONH JACKMAN * Question Answer Date of Assessment Author Trouble falling or staying a sleep, or sleeping too much Not at all 04/13/2025 2:00 PM EDJONH JACKMAN Feeling tired or having escobar le energy Several days 04/13/2025 2:00 PM EDJONH JACKMAN Poor appetite or overeating Not at all 04/13/2025 2: 00 PM EDJONH JACKMAN Feeling bad about yourself - or that you are a failure or have let yourself or your family down Not at all 04/13/2025 2:00 PM EDMichael JACKMAN Trouble concentrating on thi ngs, such as reading the newspaper or watching television Not at all 04/13/2025 2:00 PM JONH FRENCH Moving or speaking so slowly that other people could have noticed? Or the opposite - being so fidgety or restless that you have been moving around a lot more than usual. Not at all 04/13/2025 2:00 PM JONH FRENCH Thoughts that you would be b mahesh off or hurting yourself in some way Not at all 04/13/2025 2:00 PM EDJONH JACKMAN Patient Health Questionnaire -9 Score 2 04/13/2025 2:00 PM EDJONH JACKMAN documented as of this encounter Progress Notes * Jorge Ortez MD - 04/13/2025 2:48 PM EDTAssociated Problem(s): Class 3 severe obesity due to excess calories with serious comorbidity and body mass index (BMI) of 50.0 to 59.9 in adult ([facility]) Weight loss indicated. * Jorge Ortez MD - 04/13/2025 2:40 PM EDTAssociated Problem(s): Medicare annual wellness visit, subsequent Due for labs. Discussed proper diet and regular aerobic exercise. Need aerobic exercise 5-6 days a week for 30 minutes at a time. Smaller portions and limit total calories. Tetanus every 10 years. Advised not to smoke. * Jorge Ortez MD - 04/13/2025 2:00 PM EDT Images from the original note were not included. Subjective Patient ID: Taj Cabral is a 79 y.o. male who presents for Medicare Annual Wellness Visit Subsequent (wellness). Presents for medicare annual wellness visit. Weight up 15 pounds in the past year. Not very active and not much activity. No exercise. Tries to watch diet and eat healthy. Increased fruits and vegetables. Smaller portions and limits snacking. Tries to limit total daily calories. Due for labs. Review of Systems Constitutional: Negative for fatigue. Respiratory: Negative for cough, shortness of breath and wheezing. Cardiovascular: Negative for chest pain and palpitations. Gastrointestinal: Negative for abdominal pain, diarrhea, nausea and vomiting. Genitourinary: Negative for dysuria. Objective Physical Exam Constitutional: General: He is not in acute distress. Appearance: Normal appearance. HENT: Head: Normocephalic. Right Ear: Tympanic membrane and ear canal normal. Left Ear: Tympanic membrane and ear canal normal. Eyes: Extraocular Movements: Extraocular movements intact. Pupils: Pupils are equal, round, and reactive to light. Cardiovascular: Rate and Rhythm: Normal rate and regular rhythm. Heart sounds: No murmur heard. No friction rub. No gallop. Pulmonary: Breath sounds: Normal breath sounds. No wheezing, rhonchi or rales. Abdominal: General: Bowel sounds are normal. There is no distension. Palpations: Abdomen is soft. Tenderness: There is no abdominal tenderness. There is no guarding or rebound. Musculoskeletal: General: Normal range of motion. Left lower leg: No edema. Neurological: General: No focal deficit present. Mental Status: He is alert. Cranial Nerves: No cranial nerve deficit. Deep Tendon Reflexes: Reflexes normal. Assessment/Plan Problem List Items Addressed This Visit Class 3 severe obesity due to excess calories with serious comorbidity and body mass index (BMI) of50.0 to 59.9 in adult Weight loss indicated. Medicare annual wellness visit, subsequent - Primary Due for labs. Discussed proper diet and regular aerobic exercise. Need aerobic exercise 5-6 days a week for 30 minutes at a time. Smaller portions and limit total calories. Tetanus every 10 years. Advised not to smoke. documented in this encounter Plan of Treatment Upcoming Encounters Date Type Department Care Team (Late st Contact Info) Description 06/16/2025 11:30 AM EDT Office Visit [facility] [address] [place] [address] Jr. Jimenez Palmer, DO [address] [place], [place] [id number] 07/14/2025 2:00 PM EDT Office Visit [facility] [address] [place] [phone] Jorge Ortez MD [address] [place] [address] documented as of this encounter Visit Diagnoses Diagnosis Medicare annual wellness visit, subsequent- Primary Class 3 severe obesity due to excess calories with serious comorbidity and body mass index (BMI) of 50.0 to 59.9 in adult ([facility]) documented in this encounter Additional Health Concerns Assessment Noted Time PHQ-9 Depression Total Score: 2 04/13/20 25 2:00 PM EDT documented as of this encounter Care Teams Rotary Drier Feeder Relationship Specialty Start Date End Date Jorge Ortez MD [address] [place] [phone] PCP - General Family Medicine 12/06/23 documented as of this encounter
--- OUTSIDE RECORDS SUMMARY | 2025-04-16 14:26 | XMS_ITS | Encounter Summary ---
Author Organization [facility] Address [address] [place] [address] Phone Care Team Providers Care Restaurant Hostess Name Role Phone Jorge Ortez MD Primary Care Provider + Jorge Ortez MD Primary Care Provider + Encounter Details Date Type Department Care Team (Late st Contact Info) Description 06/23/2022 Orders Only [facility] [address] [place] [address] Conversion, Onbase Social History Tobacco Use Types Packs/Day Years Used Date Smoking Tobacco: Never Assessed Sex and Gender Information Value Date Recorded Sex Assigned at Not on file Legal Sex Male 5:22 PM EST Gender Identity Not on file Sexual Orientation Not on file documented as of this encounter Plan of Treatment Scheduled Orders Name Type Priority Associated Diagnoses Orde r Schedule OUTSIDE LAB SCAN Lab Ordered: 06/23/2022 documented as of this encounter Visit Diagnoses Not on filedocumented in this encounter Care Teams Restaurant Hostess Relationship Specialty Start Date End Date Jorge Ortez MD PCP - General 11/05/99 01/16/24 Jorge Ortez MD [address] [place] [address] PCP - General Family Medicine 01/17/24 documented as of this encounter
--- OUTSIDE RECORDS SUMMARY | 2025-04-16 14:26 | XMS_ITS | Clinical Summary ---
Author Organization [facility] Address [address] [facility] [place] [address] Care Team Providers Care Automatic Bandsaw Tender Name Role Phone Jorge Ortez MD Primary Care Provider [phone] Allergies No known active allergies Medications traMADol (Ultram) 50 MG tablet TAKE 2 TABLET BY MOUTH TWICE A DAY NEEDED Active mupirocin (Bactroban) 2 % ointment APPLY TO AFFECTED AREA 3 TIMES A DAY 2 Active spironolactone (Aldactone) 25 MG tabletIndications:C hronic diastolic heart failure (HCC) Take 1 tablet (25 mg) by mouth in the morning and 1 tablet (25 mg) before bedtime. 4 Active furosemide (Lasix) 40 MG tabletIndications:E ted,Localized edema TAKE 1 TABLET BY MOUTH EVERY DAY 90 tablet 3 4 Active pregabalin (Lyrica) 75 MG capsuleIndications: Other spondylosis with radiculopathy, lumbosacral region,Lumbosacral spondylosis without myelopathy TAKE 1 CAPSULE BY MOUTH TWICE A DAY 60 capsule 2 5 Active levothyroxine (Synthroid, Levoxyl) 150 MCG tabletIndications:A cquired hypothyroidism TAKE 1 TABLET BY MOUTH EVERY DAY 90 tablet 3 5 Active Active Problems Problem Noted Date Diagnosed Date Medicare annual wellness visit, subsequent 04/13 Assessment & Plan (04/13/2025 2:40 PM EDT): Due for labs. Discussed proper diet and regular aerobic exercise. Need aerobic exercise 5-6 days a week for 30 minutes at a time. Smaller portions and limit total calories. Tetanus every 10 years. Advised not to smoke. CKD stage 3a, GFR 45-59 ml/min 02/25/2024 Assessment & Plan (08/27/2024 2:45 PM EDT): Renal function stable and follow with nephrology. Assessment & Plan (02/25/2024 1:37 PM EDT): Renal function stable and follow with nephrology. Start ozempic to protect kidneys. Essential hypertension, benign 11/26/2023 Assessment & Plan (12/11/2024 2:22 PM EST): BP controlled and monitor PRN. Assessment & Plan (08/27/2024 2:43 PM EDT): BP controlled and monitor PRN. Assessment & Plan (05/27/2024 3:16 PM EDT): BP elevated today but previously controlled and monitor PRN. Assessment & Plan (02/25/2024 1:37 PM EDT): BP controlled and monitor PRN. Assessment & Plan (11/26/2023 2:22 PM EST): BP elevated but previously normal. Monitor PRN and if remains elevated will need to adjust medication. Chronic diastolic heart failure 11/26/2023 Assessment & Plan (12/11/2024 2:22 PM EST): Edema controlled with medication and continue. Elevate legs PRN. Assessment & Plan (08/27/2024 2:43 PM EDT): Edema controlled with medication and continue. Elevate legs PRN. Assessment & Plan (05/27/2024 3:16 PM EDT): Edema controlled with medication and continue. Elevate legs PRN. Assessment & Plan (02/25/2024 1:36 PM EDT): Edema controlled with medication and continue. Elevate legs PRN. Assessment & Plan (11/26/2023 2:21 PM EST): Edema controlled with medication and continue. Elevate legs PRN. Dyslipidemia 11/26/2023 Acquired hypothyroidism 11/26/2023 Lumbosacral spondylosis with radiculopathy 11/26 Assessment & Plan (12/11/2024 2:22 PM EST): Pain unchanged and use ultram PRN. Assessment & Plan (08/27/2024 2:43 PM EDT): Pain unchanged and use ultram PRN. Assessment & Plan (05/27/2024 3:17 PM EDT): Pain unchanged and use ultram PRN. Assessment & Plan (02/25/2024 1:37 PM EDT): Pain unchanged and use ultram PRN. Assessment & Plan (11/26/2023 2:24 PM EST): Pain unchanged and use medication PRN. Patient will have lift chair installed in home to get up stairs. Prediabetes 11/26/2023 Assessment & Plan (02/25/2024 1:37 PM EDT): Start ozempic Class 3 severe obesity due t o excess calories with serious comorbidity and body mass index (BMI) of 50.0 to 59.9 in adult 11/26/2023 Assessment & Plan (04/13/2025 2:48 PM EDT): Weight loss indicated. Assessment & Plan (12/11/2024 2:22 PM EST): Weight loss indicated. Assessment & Plan (08/27/2024 2:44 PM EDT): Weight loss indicated. Primary osteoarthritis of right hip 11/26/2023 Bilateral primary osteoarthritis of knee 024 Assessment & Plan (12/11/2024 2:22 PM EST): Pain stable and use gel PRN. Follow with ortho. Assessment & Plan (08/27/2024 2:43 PM EDT): Pain stable and use gel PRN. Assessment & Plan (05/27/2024 3:16 PM EDT): Pain stable and use gel PRN. Assessment & Plan (02/25/2024 1:36 PM EDT): Pain stable and use gel PRN. Assessment & Plan (11/26/2023 2:21 PM EST): Pain stable and use gel PRN. HEENA (obstructive sleep apnea) 11/26/2023 Assessment & Plan (12/11/2024 2:22 PM EST): Sleeping well with CPAP and continue. Patient is benefiting from PAP therapy. Assessment & Plan (08/27/2024 2:43 PM EDT): Sleeping well with CPAP and continue. Patient is benefiting from PAP therapy. Assessment & Plan (05/27/2024 3:17 PM EDT): Sleeping well with CPAP and continue. Patient is benefiting from PAP therapy. Assessment & Plan (02/25/2024 1:37 PM EDT): Sleeping well with CPAP and continue. Patient is benefiting from PAP therapy. Assessment & Plan (11/26/2023 2:24 PM EST): Sleeping well with CPAP and continue. Patient is benefiting from PAP therapy. Encounter for long-term (current) use of medicat ions 11/26/2023 Screening PSA (prostate specific antigen) 2023 Resolved Problems Problem Noted Date Diagnosed Date Resolved Date Leg ulcer, left, limited to breakdown of skin 05/27/20 24 04/13/2025 Assessment & Plan (05/27/2024 3:17 PM EDT): Developed wound and treat with augmentin. Refer to wound care. COPD (chronic obstructive pulmonary disease) 4 02/25/2024 Encounters Date Type Department Care Team Description 04/13/2025 2:00 PM EDT Office Visit [facility] [address] [place] [phone] Jorge Ortez MD Medicare annual wellness visit, subsequent (Primary Dx); Class 3 severe obesity due to excess calories with serious comorbidity and body mass index (BMI) of 50.0 to 59.9 in adult ([facility]) 04/13/2025 Bamboo flowsheet [facility] [address] [place] [address] Jorge Ortez MD 02/09/2025 Telephone [facility] [address] [place] [address] Jorge Ortez MD from Last 3 Months Family History Medical History Relation Name Comments Cancer Father Relation Name Status Comments Father Mother Social History Tobacco Use Types Packs/Day Years Used Date Smoking Tobacco: Former Cigarettes 2 25 1 965 - 1989 Smokeless Tobacco: Never Tobacco Cessation:Counseling Given: Not Answered Humiliation, Afraid, Rape, and Kick questionnair e [...] week 11/19/2023 How often do you attend chur ch or latter day services? More than 4 times per year 11/19/2023 Do you belong to any clubs o r organizations such as jainism groups, unions, fraternal or athletic groups, or [...] Recorded Patient Health Questionnaire-2 Score 1 04/13/2025 [facility] Health - Occupational Stress [...] place to sleep or slept in a usp (including now)? No 11/19/2023 Sex and Gender Information Value Date Recorded Sex Assigned at Not on file Legal Sex Male 7:30 PM EDT Gender Identity Not on file Sexual Orientation Not on file Last Filed Vital Signs Vital Sign Reading [...] Mass Index 53.98 04/13/2025 2:11 PM EDT Plan of Treatment Upcoming Encounters Date Type Department Care Team (Late st Contact Info) Description 06/16/2025 11:30 AM EDT Office Visit [facility] [address] [place] [address] Jr. Jimenez Palmer, DO [address] [place] [address] 07/14/2025 2:00 PM EDT Office Visit [facility] [address] [place] [address] Jorge Ortez MD [address] [place] [address] Health Maintenance Due Date Last Done Comments Pneumococcal Vaccine: 65+ Ye ars (2 of 2 - PCV) 08/05/2016 08/05/2015 Medicare Annual Wellness (AWV) 04/13/2026 0 04/13/2025, 08/27/2024 (Patient Refused) Influenza Vaccine Completed 10/15/2024, , 10/01/2022, Additional history exists Insurance [employer] Care Teams Automatic Bandsaw Tender Relationship Specialty Start Date End Date Jorge Ortez MD [address] [place] [address] PCP - General Family Medicine 12/06/23
--- OUTSIDE RECORDS SUMMARY | 2025-04-16 14:26 | XMS_ITS | Clinical Summary ---
Author Organization [employer] Address [id number] [address] [place] [address] Care Team Providers Care Resident Care Manager Rn Name Role Phone Jorge Ortez MD Primary Care Provider [phone] Allergies No known active allergies Social History Tobacco Use Types Packs/Day Years Used Date Smoking Tobacco: Never Assessed Childcare Answer Date Recorded Childcare Unknown 04/16/2019 Employment Answer Date Recorded Employment Unknown 04/16/2019 Purpose - Life Answer Date Recorded Purpose and direction in life Unknown Sex and Gender Information Value Date Recorded Sex Assigned at Not on file Legal Sex Male 11:32 AM EDT Gender Identity Not on file Sexual Orientation Not on file Last Filed Vital Signs Vital Sign Reading Time Taken Comments Blood Pressure - - Pulse - - Temperature - - Respiratory Rate - - Oxygen Saturation - - Inhaled Oxygen Concentration - - Weight 188.2 kg (415 lb) 08/13/2019 1:04 PM EDT Height 180.3 cm (5' 11 ) 08/13/2019 1:04 PM EDT Body Mass Index 57.88 08/13/2019 1:04 PM EDT Plan of Treatment Health Maintenance Due Date Last Done Comments Depression Screening 1957 Tobacco Screening 1957 DTaP,Tdap and Td Vaccines (1 - Tdap) 1965 Zoster (Shingles) Vaccine (1 of 2) 1996 Fall Risk Screening 2011 Influenza Vaccine 07/06/2025 Medical Devices Not on file Insurance MEDICARE [facility] Care Teams Resident Care Manager Rn Relationship Specialty Start Date End Date Jorge Ortez MD PCP - General Family Medicine 03/21/18
--- OUTSIDE RECORDS SUMMARY | 2025-04-16 14:26 | XMS_ITS | Encounter Summary ---
Author Organization [facility] Address [address] [place] [address] Care Team Providers Care Merchandise Manager Name Role Phone Jorge Ortez MD Primary Care Provider [phone] Encounter Details Date Type Department Care Team (Late st Contact Info) Description 04/13/2025 Bamboo flowsheet [facility] [address] [place] [address] Jorge Ortez MD [address] [place] [phone] Social History Tobacco Use Types Packs/Day Years Used Date Smoking Tobacco: Former Cigarettes 2 - 1989 Smokeless Tobacco: Never Humiliation, Afraid, [...] 11/19/2023 How often do you attend chur or yazidi services? More than 4 times per year 11/19/2023 Do you belong to any clubs o r organizations such as anabaptism groups, unions, fraternal or athletic groups, or [...] Recorded Patient Health Questionnaire-2 Score 1 04/13/2025 [facility] - Occupational Stress [...] place to sleep or slept in a fdc (including now)? No 11/19/2023 Sex and Gender Information Value Date Recorded Sex Assigned at Not on file Legal Sex Male 7:30 PM EDT Gender Identity Not on file Sexual Orientation Not on file documented as of this encounter Plan of Treatment Upcoming Encounters Date Type Department Care Team (Late st Contact Info) Description 06/16/2025 11:30 AM EDT Office Visit [facility] [address] [place] [phone] Jr. Jimenez Palmer, [address] [place] [address] 07/14/2025 2:00 PM EDT Office Visit [facility] [address] [place] [phone] Jorge Ortez MD [address] [place] [address] documented as of this encounter Visit Diagnoses Not on filedocumented in this encounter Additional Health Concerns Assessment Noted Time PHQ-9 Depression Total Score: 2 04/13/20 25 2:00 PM EDT documented as of this encounter Care Teams Merchandise Manager Relationship Specialty Start Date End Date Jorge Ortez MD [address] [place] [address] PCP - General Family Medicine 12/06/23 documented as of this encounter
--- OUTSIDE RECORDS SUMMARY | 2025-04-16 14:26 | XMS_ITS | Clinical Summary ---
Author Organization [facility] Address [address] [place] [address] Phone Care Team Providers Care Professor Of Exercise Science Name Role Phone Jorge Ortez MD Primary Care Provider + Allergies No known active allergies Medications furosemide (Lasix) 40 mg tablet Take 1 tablet (40 mg) by mouth once daily. Active levothyroxine (Synthroid) 150 mcg tablet Take 1 tablet (150 mcg) by mouth once daily. Active traMADol (Ultram) 50 mg tablet Take 2 tablets (100 mg) by mouth 2 times a day. Active pregabalin (Lyrica) 75 mg capsule Take 1 capsule (75 mg) by mouth 2 times a day. Active spironolactone (Aldactone) 25 mg tablet Take 1 tablet (25 mg) by mouth once daily. Active albuterol 90 mcg/actuation inhaler Inhale 2 puffs every 4 hours if needed for wheezing. Active Active Problems Problem Noted Date Diagnosed Date Essential hypertension 01/17/2024 BMI 50.0-59.9, adult (Multi) 01/17/2024 Former smoker 01/17/2024 Chronic kidney disease 11/29/2023 DVT (deep venous thrombosis) (Multi) 11/29/2023 History of COVID-19 11/29/2023 Pulmonary embolism 11/29/2023 Edema 11/29/2023 Immunizations Immunization Administration Dates Next Due Influenza, seasonal, injectable 07/06/2021 Moderna SARS-CoV-2 Vaccination 01/11/2021 Pfizer Purple Cap SARS-CoV-2 10/19/2021 Pneumococcal polysaccharide vaccine, 23-valent, age 2 years and older (PNEUMOVAX 23) 08/05/2015 Family History Medical History Relation Name Comments Cancer Father Relation Name Status Comments Father Social History Tobacco Use Types Packs/Day Years Used Date Smoking Tobacco: Former Cigarettes Smokeless Tobacco: Never Alcohol Use Standard Drinks/Week Comments Never 0 (1 standard drink = 0.6 oz pur e alcohol) Sex and Gender Information Value Date Recorded Sex Assigned at Not on file Legal Sex Male 5:22 PM EST Gender Identity Not on file Sexual Orientation Not on file Last Filed Vital Signs Vital Sign Reading Time Taken Comments Blood Pressure 140/86 01/17/2024 11:49 AM EDT Pulse 68 01/17/2024 11:49 AM EDT Temperature - - Respiratory Rate - - Oxygen Saturation - - Inhaled Oxygen Concentration - - Weight 167 kg (368 lb) 01/17/2024 11:49 AM EDT Height 180.3 cm (5' 11 ) 01/17/2024 11:49 AM EDT Body Mass Index 51.33 01/17/2024 11:49 AM EDT Plan of Treatment Health Maintenance Due Date Last Done Comments Creatinine Level 1946 Lipid Panel 1945 Medicare Annual Wellness Vis it (AWV) 1945 Potassium Level 1946 TSH Level 1946 Diabetes Screening 1964 Hepatitis C Screening 1964 CKD: Urine Protein Screening 1965 DTaP/Tdap/Td Vaccines (1 - Tdap) 1968 Zoster Vaccines (1 of 2) 1996 Pneumococcal Vaccine (2 of 2 - PCV) 08/05/2016 08/05/2015 RSV High Risk: (Elderly (60+ ) or Population) (1 - 1-dose 75+ series) 2021 Echocardiogram 06/22/2023 06/22/2022 COVID-19 Vaccine (4 - 2023-2 5 season) 2024 10/19/2021, 01/11/2021, 12/14/2020 Influenza Vaccine (Season Ended) 2025 09/13/2023, 10/01/2022, 07/06/2021 HIB Vaccines Aged Out No longer eligi ble based on patient's age to complete this topic HPV Vaccines Aged Out No longer eligi ble based on patient's age to complete this topic Hepatitis A Vaccines Aged Out No long er eligible based on patient's age to complete this topic Hepatitis B Vaccines Aged Out No long er eligible based on patient's age to complete this topic IPV Vaccines Aged Out No longer eligi ble based on patient's age to complete this topic Meningococcal Vaccine Aged Out No [place] eligible based on patient's age to complete this topic Rotavirus Vaccines Aged Out No longer eligible based on patient's age to complete this topic Procedures Procedure Name Priority Date/Time Associated Diagnosis Comments ECHOCARDIOGRAM 06/22/2022 from Last 3 Months or Most Recently Relevant to Health Maintenance Results * ECHOCARDIOGRAM (06/22/2022) Narrative 06/22/2022 Ordered by an unspecified provider. us Onbase Conversion CV ECHO PROCEDURES Final Resul t from Last 3 Months or Most Recently Relevant to Health Maintenance Insurance MEDICARE PART A AND B [facility] MEDICARE SUPPLEMENT MEDICARE PART A AND B [facility] MEDICARE SUPPLEMENT Care Teams Professor Of Exercise Science Relationship Specialty Start Date End Date Jorge Ortez MD [address] [place] [address] PCP - General Family Medicine 01/17/24
--- NOTE | 2025-04-16 14:49 | PM.CN ---
Consult Note: HPI Data of Consult Patient: known to practice within the last 3 years Requesting Physician: Althea Haney NP Primary Care Provider: Jorge Ortez MD Consult Narrative Reason for consult: f/u Narrative: Eleuterio Cabral a pleasant 79 year old male presents for evaluation and management of chronic pain in low back buttocks and groin, as well as left knee pain. Today rating pain 3-4/10 in low back, worse with weight bearing, standing, walking, activity. Patient has been doing well on tramadol and lyrica, without side effects. cc:: CC: Althea Haney NP Review of Systems ROS Status of ROS 10 or more systems reviewed and unremarkable except as noted in history and below Musculoskeletal Reports: back pain and joint pain Meds Home Medications and Allergies Home Medications ?Medication ?Instructions ?Recorded ?Confirmed ?Type furosemide 40 mg tablet 40 mg PO DAILY 05/03/23 05/03/23 History levothyroxine 150 mcg capsule 150 mcg PO DAILY 05/03/23 05/03/23 History pregabalin 75 mg capsule (Lyrica) 75 mg PO BID 05/03/23 05/03/23 History rivaroxaban 20 mg tablet (Xarelto) 20 mg PO DAILY 05/03/23 05/03/23 History spironolactone 25 mg tablet 25 mg PO BID 05/03/23 05/03/23 History tramadol 50 mg tablet 50 mg PO .BID-TID PRN pain #80 tabs 07/24/24 Rx tramadol 50 mg tablet See Rx Instructions .Route 11/04/24 Rx .COMPLEX PRN pain #80 tabs tramadol 50 mg tablet 50 mg PO BID PRN pain #60 tabs 12/15/24 Rx tramadol 50 mg tablet 50 mg PO BID PRN pain #60 tabs 01/22/25 Rx tramadol 50 mg tablet 50 mg PO BID PRN pain #60 tabs 03/02/25 Rx Allergies Allergy/AdvReac Type Severity Reaction Status Date / Time No Known Drug Allergies Allergy Verified 05/03/23 15:29 Exam Constitutional Documenting provider has reviewed patient's vital signs: yes Common normals: no apparent distress, oriented x3, healthy appearing, alert and well nourished General appearance: cooperative Nutritional appearance: obese HENMT Common normals: normocephalic, hearing grossly normal bilaterally and moist oral mucous membranes Head and scalp: normocephalic Eye Common normals: PERRL Pupil: PERRL Neck & C-Spine Common normals: full ROM General: normal visual inspection Chest Common normals: inspection of chest normal Respiratory Common normals: normal respiratory effort, no retractions and no use of accessory muscles Back & Pelvis Lumbar spine/lower back: ROM limited, pain with ROM and straight leg raise negative bilaterally Extremity Common normals: normal to inspection Left lower extremity: knee joint Other: left knee enlarged diameter, crepitus noted, pain with medial and lateral stress testing, mild edema no instability Neuro Common normals: oriented x3, CN's II-XII intact bilaterally, moves all extremities, no focal motor deficits, no sensory deficits noted and deep tendon reflexes 2+ bilaterally Sensorium/orientation: alert Gait (neuro): antalgic and assistive device used walker Motor exam: strength 5/5 throughout and no movement abnormalities noted Psych Common normals: mental status grossly normal, thought process normal, cooperative, affect normal, speech normal and activity/motor behavior normal Speech: normal speech Thought process: normal thought process Results Additional Findings Additional findings: If on a controlled substance or opioids, I have checked an OARRS report on this patient and there are no aberrancies noted in the prescribing history.??If on a controlled substance or opioid a drug screen was completed and reviewed within the last year, and if there has not been a drug screen completed we ordered one today to monitor higher risk, state monitored pain medication use. As part of providing excellent, safe, comprehensive care, the following was completed at our patient's visit: 1. A medication reconciliation and review to ensure accurate knowledge of current/active medications, including asking our patients to inform us about any [id number] medications or herbal remedies/nutritional supplements/alternative remedies. 2. A review to specifically ensure our patients have had annual screening for screening for depression, screening for tobacco use, and screening for unhealthy alcohol use. For concerning screenings had a discussion with the patient, provided patient education, and recommended follow-up with primary care provider when appropriate. If patient noted with a risk of falling, they received education on strength, gait, and balance training to prevent future risk of falling. Portions of this note may have been carried over from the previous visit and updated as appropriate. Please note this office utilizes paper charting in addition to the electronic medical record. A list of current medications, vitals, and PMH is available there as the clinical staff outside of myself do not have access to [facility] charting during the clinic day operations. As part of providing quality comprehensive care the current medications, vitals, and PMH were reviewed in the paper chart. Assessment and Plan Assessment and Plan (1) Lumbar spondylosis: (2) Lumbar stenosis: (3) Encounter for long-term opiate analgesic use: Assessment and Plan: I feel these medications are improving the patient's quality of life and allow them to tolerate activities of daily living as well as participate in recreational activity.? The patient does not report intolerable side effects. The patient is NOT opioid naive and non-pharmacologic and non-opioid treatment has failed to significantly relieve the patient's pain and improve functionality. The patient has a diagnosis that is related to a somatic or visceral pain etiology. ? ?? I reviewed with the patient the potential risks and side effects with the use of? opioid medications including but not limited to respiratory depression,? sedation, and even . I verified the patient has access to naloxone should? these effects occur. I advised the patient to avoid the use of any other? sedation substances including alcohol, THC, and benzodiazepines while? taking opioid medications due to the risk of compounding side effects and? detrimental outcomes. I reviewed the CUSTOMER SUPPORT ASSISTANT, pain treatment agreement, urine? drug screen, and opioid start talking forms. The patient was advised to let? their family know they had Naloxone in case they would need to administer? the medication.? ?? A drug screen was completed within the last year, and no aberrancies were noted regarding their use of controlled substances. The patient understands they are subject to the terms and conditions of the pain contract that they have signed. ? ?? I have checked an OARRS report on this patient today and there are no aberrancies noted in the prescribing history.? (4) Osteoarthritis of left knee: (5) Left knee pain: (6) Obesity: Assessment and Plan: The patient was counseled that proper dietary changes and consistent participation in a home exercise plan can lead to weight loss. Weight loss can help to improve functionality in patients with chronic pain.? Plan continue tramadol 50mg once to twice daily prn moderate to severe pain, pt has been able to make 30 day supply last 2 months. continue PRN tylenol continues to have functional improvement and pain relief as a result of injection therapy and medication management, declining additional workup continue pregabalin 75mg BID through ordering provider f/u 3 months, sooner if needed
== END 2025-04-16 14:20 | disposition home or self-care (01) ==
PROVIDERS: PCP Family Medicine; Visit Provider Nurse Practitioner
DX: M47.816 Spondylosis without myelopathy or radiculopathy, lumbar region (principal); M48.062 Spinal stenosis, lumbar region with neurogenic claudication; Z79.891 Long term (current) use of opiate analgesic; M17.12 Unilateral primary osteoarthritis, left knee; M25.562 Pain in left knee; E66.9 Obesity, unspecified; R73.03 Prediabetes; N18.31 Chronic kidney disease, stage 3a; Z79.899 Other long term (current) drug therapy; E78.5 Hyperlipidemia, unspecified; I50.32 Chronic diastolic (congestive) heart failure; Z12.5 Encounter for screening for malignant neoplasm of prostate
CPT/HCPCS: 36415; 80048; 80061; 80076; 83036; 84439; 84443; 85025; G0103; G0463

== ENCOUNTER 2025-04-16 15:19 | Outpatient (OUT) | payer OTHER, SELFPAY ==
[2025-04-16 16:02] LABS: Basophils Percent Auto 0.4 % (0.2-2.0); Eosinophils Absolute Auto 0.1 10^3/uL (0.0-0.7); Eosinophils Percent Auto 1.5 % (0.9-7.0); Hemoglobin 16.7 g/dL (14.0-18.0); Immature Granulocytes Abs Auto 0.02 10^3/uL (0.00-0.03); Immature Granulocytes Pct Auto 0.3 % (0.0-0.5); Lymphocytes Absolute Auto 1.8 10^3/uL (1.2-3.8); Lymphocytes Percent Auto 24.4 % (20.5-60.0); Mean Corpuscular HGB Conc 33.4 g/dL (29.9-35.2); Mean Corpuscular Hemoglobin 30.7 pg (25.9-34.0); Mean Corpuscular Volume 91.9 fL (80.0-94.0); Monocytes Absolute Auto 0.5 10^3/uL (0.3-0.8); Monocytes Percent Auto 7.4 % (1.7-12.0); Neutrophils Absolute Auto 4.8 10^3/uL (1.4-6.5); Platelet Count 282 10^3/uL (150-450); Red Blood Count 5.44 10^6/uL (4.70-6.10); Red Cell Distribution Width 13.7 % (11.0-15.0); White Blood Count 7.2 10^3/uL (4.0-11.0)
[2025-04-16 16:06] LABS: Estimated Average Glucose 128 mg/dL; Glycohemoglobin A1C 6.1 % (4.5-6.2)
[2025-04-16 16:26] LABS: Alanine Aminotransferase 22 U/L (16-63); Albumin Globulin Ratio 0.7; Albumin Level 3.5 g/dL (3.4-5.0); Alkaline Phosphatase 89 U/L (46-116); Anion Gap 13.4; Aspartate Amino Transferase 17 U/L (15-37); BUN Creatinine Ratio 18.9; Bilirubin Direct 0.2 mg/dL (0.0-0.2); Bilirubin Total 0.7 mg/dL (0.2-1.0); Calcium 9.7 mg/dL (8.5-10.1); Carbon Dioxide 28.1 mmol/L (21.0-32.0); Chloride 100 mmol/L (98-107); Cholesterol 259 mg/dL (<=200); Estimated GFR (African America >60 (>=60 mL/min/1.73m^2); Estimated GFR (Non-African Ame 52 (>=60 mL/min/1.73m^2); Globulin 4.8 g/dL; Glucose 106 mg/dL (74-106); HDL Cholesterol 43 mg/dL (40-60); Potassium 4.5 mmol/L (3.5-5.1); Sodium 137 mmol/L (136-145); Thyroid Stimulating Hormone 0.402 uIU/mL (0.358-3.740); Total Protein 8.3 g/dL (6.4-8.2); Triglycerides 149 mg/dL (<=150); VLDL CHOLESTEROL 29.8 mg/dL
[2025-04-16 16:56] LABS: Free T4 1.43 ng/dL (0.76-1.46)
[2025-04-16 17:04] LABS: Prostate Specific Antigen Scrn 0.75 ng/mL (<=4.00)
== END 2025-04-16 15:20 | disposition home or self-care (01) ==
PROVIDERS: PCP Family Medicine; Visit Provider Family Medicine
DX: R73.03 Prediabetes (principal); N18.31 Chronic kidney disease, stage 3a; Z79.899 Other long term (current) drug therapy; E78.5 Hyperlipidemia, unspecified; I50.32 Chronic diastolic (congestive) heart failure; Z12.5 Encounter for screening for malignant neoplasm of prostate
CPT/HCPCS: 36415; 80048; 80061; 80076; 83036; 84439; 84443; 85025; G0103

== ENCOUNTER 2025-05-26 15:35 | Outpatient (OUT) | payer OTHER, SELFPAY ==
--- OUTSIDE RECORDS SUMMARY | 2025-05-26 15:41 | XMS_ITS | Encounter Summary ---
Author Organization [facility] Address [address] [place] [address] Care Team Providers Care Hoop Punch And Coiler Operator Helper Name Role Phone Jorge Ortez MD Primary Care Provider [phone] Reason for Visit * Reason Comments Med Refill Encounter Details Date Type Department Care Team (Late st Contact Info) Description 05/25/2025 Refill [facility] [address] [place] [phone] Jorge Ortez MD [address] [place] [address] Other spondylosis with radiculopathy, lumbosacral region; Lumbosacral spondylosis without myelopathy Social History Tobacco Use Types Packs/Day Years [...] often do you attend chur ch or jehovah's witness services? More than 4 times per year 11/19/2023 Do you belong to any clubs o r organizations such as amish groups, unions, fraternal or athletic groups, or [...] Recorded Patient Health Questionnaire-2 Score 1 04/13/2025 [facility] - Occupational Stress Questionnaire Answer Date Recorded [...] place to sleep or slept in a jail (including now)? No 11/19/2023 Sex and Gender [...] Office Visit [facility] [address] [place] [id number] Jr. Jimenez Palmer, DO [address] [place] [address] 07/21/2025 2:00 PM EDT Office Visit [facility] [address] [place] [address] Jorge Ortez MD [address] [place] [address] documented as of this encounter Visit Diagnoses Diagnosis Other spondylosis with radiculopathy, lumbosacral region Lumbosacral spondylosis without myelopathy documented in this encounter Additional Health Concerns Assessment Noted Time PHQ-9 Depression Total Score: 2 04/13/20 25 2:00 PM EDT documented as of this encounter Care Teams Hoop Punch And Coiler Operator Helper Relationship Specialty Start Date End Date Jorge Ortez MD [address] [place] [phone] PCP - General Family Medicine 12/06/23 documented as of this encounter
--- OUTSIDE RECORDS SUMMARY | 2025-05-26 15:41 | XMS_ITS | Encounter Summary ---
Author Organization [facility] Address [address] [place] [address] Care Team Providers Care Locksmith Name Role Phone Jorge Ortez MD Primary Care Provider [phone] Encounter Details Date Type Department Care Team (Late st Contact Info) Description 04/20/2025 Results Follow-Up [facility] [address] [place] [phone] Jorge Ortez MD [address] [place] [address] Social History Tobacco Use Types Packs/Day Years Used Date Smoking Tobacco: Former Cigarettes - 1989 Smokeless Tobacco: Never Humiliation, Afraid, [...] How often do you attend chur or rastafari services? More than 4 times per year 11/19/2023 Do you belong to any clubs o r organizations such as shinto groups, unions, fraternal or athletic groups, or [...] Recorded Patient Health Questionnaire-2 Score 1 04/13/2025 [facility] - [...] Visit [facility] [address] [place] [phone] Jr. Jimenez Palmer, [address] [place], [place] [id number] 07/21/2025 2:00 PM EDT Office Visit [facility] [address] [place] [phone] Jorge Ortez MD [address] [place] [phone] documented as of this encounter Visit Diagnoses Not on filedocumented in this encounter Additional Health Concerns Assessment Noted Time PHQ-9 Depression Total Score: 2 04/13/20 25 2:00 PM EDT documented as of this encounter Care Teams Locksmith Relationship Specialty Start Date End Date Jorge Ortez MD [address] [place] [phone] PCP - General Family Medicine 12/06/23 documented as of this encounter
--- OUTSIDE RECORDS SUMMARY | 2025-05-26 15:41 | XMS_ITS | Encounter Summary ---
Author Organization [facility] Address [address] [place] [address] Phone Care Team Providers Care Machinery Mover Name Role Phone Jorge Ortez MD Primary Care Provider + Jorge Ortez MD Primary Care Provider + Encounter Details Date Type Department Care Team (Late st Contact Info) Description 06/23/2022 Orders Only [facility] [address] [place] [address] Conversion, Onbase Social History Tobacco Use Types [...] on filedocumented in this encounter Care Teams Machinery Mover Relationship Specialty Start Date End Date Jorge Ortez MD PCP - General 11/05/99 01/16/24 Jorge Ortez MD [address] [place] [address] PCP - General Family Medicine 01/17/24 documented as of this encounter
--- OUTSIDE RECORDS SUMMARY | 2025-05-26 15:41 | XMS_ITS | Clinical Summary ---
Author Organization [facility] Address [id number] [address] [place] [address] Care Team Providers Care Processing Tech Name Role Phone Jorge Ortez MD Primary Care Provider [phone] Allergies No known active allergies Social History [...] Medical Devices Not on file Insurance MEDICARE [facility] Care Teams Processing Tech Relationship Specialty Start Date End Date Jorge Ortez MD PCP - General Family Medicine 03/21/18
--- OUTSIDE RECORDS SUMMARY | 2025-05-26 15:41 | XMS_ITS | Clinical Summary ---
Author Organization [facility] Address [address] [place] [address] Phone Care Team Providers Care Art Therapy Certified Supervisor Name Role Phone Jorge Ortez MD Primary [...] season) 2024 10/19/2021, 01/11/2021, 12/14/2020 Influenza Vaccine (#1) 2025 3, 10/01/2022, 07/06/2021 HIB Vaccines Aged Out No [...] Maintenance Insurance MEDICARE PART A AND B [facility] MEDICARE SUPPLEMENT MEDICARE PART A AND B [facility] MEDICARE SUPPLEMENT Care Teams Art Therapy Certified Supervisor Relationship Specialty Start Date End Date Jorge Ortez MD [address] [place] [address] PCP - General Family Medicine 01/17/24
[2025-05-26 15:52] LABS: Hematocrit 50.3 % (42.0-54.0); Hemoglobin 16.9 g/dL (14.0-18.0); Mean Corpuscular HGB Conc 33.6 g/dL (29.9-35.2); Mean Corpuscular Hemoglobin 31.1 pg (25.9-34.0); Mean Corpuscular Volume 92.5 fL (80.0-94.0); Platelet Count 292 10^3/uL (150-450); Red Blood Count 5.44 10^6/uL (4.70-6.10); White Blood Count 7.9 10^3/uL (4.0-11.0)
[2025-05-26 16:06] LABS: Albumin Level 3.5 g/dL (3.4-5.0); Anion Gap 13.4; Blood Urea Nitrogen 26.0 mg/dL (7.0-18.0); Calcium 9.8 mg/dL (8.5-10.1); Carbon Dioxide 29.2 mmol/L (21.0-32.0); Chloride 100 mmol/L (98-107); Estimated GFR (African America 50 (>=60 mL/min/1.73m^2); Estimated GFR (Non-African Ame 41 (>=60 mL/min/1.73m^2); Glucose 115 mg/dL (74-106); Potassium 4.6 mmol/L (3.5-5.1); Sodium 138 mmol/L (136-145)
== END 2025-05-26 15:36 | disposition home or self-care (01) ==
LOC: LAB 15:38
PROVIDERS: PCP Family Medicine; Visit Provider Internal Medicine Nephrology
DX: N25.81 Secondary hyperparathyroidism of renal origin (principal); N18.9 Chronic kidney disease, unspecified; D63.1 Anemia in chronic kidney disease
CPT/HCPCS: 36415; 80069; 83970; 85027

== ENCOUNTER 2025-07-29 13:06 | Outpatient (OUT) | payer OTHER, SELFPAY ==
--- OUTSIDE RECORDS SUMMARY | 2025-07-29 13:11 | XMS_ITS | CCD ---
Author Organization [facility] Care Team Providers Care Flour Inspector Name Role Phone PHYSICIAN, DEFAULT Unavailable Unavailable PHYSICIAN, DEFAULT Unavailable Unavailable Jorge Camejo Unavailable Unavailable Unavailable Oscar Walters Unavailable Patel Ugarte Admitting Unavailable Rafael Napier Attending Unavailab Jorge Casillas Primary Care Unavailable Josiane Sykes Consulting Unavailable Beth Malhotra Consulting Unavailable Susi Montes Consulting Unavailable uGmaro Portillo Consulting Unavail able Lauren Cortez Consulting Unavailable Ranjit Mckeon Consulting Unavailab Yuliya Valdes Consulting Unavailable Verena Morton Consulting Unavailable Ana Paula Lee Consulting Unavailab Rody Hansen Consulting Unavailable Oscar Walters Consulting Unavailable Gina Cherry Consulting Unavailable Bryant Cooper Consulting Unavailable Phil Sutton Consulting Unavailable Wolfgang Mclean Consulting Unavailable Sekou Green Consulting Unavailable Unavailable Unavailable Gumaro Malhotra Attending Unavailable Neelima, Dr. Jorge Hurtado Primary Care Adamaris Camejo, Dr. Jorge Hurtado Primary Care Gumaro Conner Referring Unavailable Gumaro Malhotra Attending Unavailable Neelima, Dr. Jorge Hurtado Primary Care Gumaro Conner Referring Unavailable Gumaro Malhotra Attending Unavailable Neelima, Dr. Jorge Hurtado Primary Care Gumaro Conner Attending Unavailable Neelima, Dr. Jorge Hurtado Primary Care DR JORGE Poe Primary Care Unavailable LAKSHMIPATHY ., NARENDRANATH Admitting Sydney vailable LAKSHMIPATHY ., NARENDRANATH Consulting Sydney vailable LAKSHMIPATHY ., NARKAMARATH Attending Sydney vailable NADLIZBETH, DR JORGE Masters Primary Care Unavailable MCLEAN ., DR HUNTER Gagnon Attending Unavailable MCLEAN ., DR HUNTER Gagnon Admitting Unavailable SANCHEZ ., DOMO Consulting Unavailable LAKSHMIPATHY ., NARENDPEDRO Admitting Sydney vailable LAKSHMIPATHY ., JAVIER Attending Sydney vailable NADLIZBETH, DR JORGE Masters Primary Care Unavailable MCLEAN ., DR HUNTER Gagnon Attending Unavailable SANCHEZ ., DOMO Consulting Unavailable MCLEAN ., DR HUNTER Gangon Admitting Unavailable NADERER, DR JORGE Masters Primary Care Unavailable NADERER, DR JORGE Masters Primary Care Unavailable NADERER, DR JORGE Masters Attending Unavailable WEST, DR ANETTE Torrez Consulting Unavailable NADERER, DR [...] Attending Unavailable ELASHI, DR LUU Admitting Unavailable ROSCOE, DR GUMARO Gagnon Consulting Unavailabl e ROSCOE, DR GUMARO Gagnon Attending Unavailabl e NADERER, DR JORGE Masters Primary Care Unavailable ROSCOE, DR GUMARO Gagnon Admitting Unavailabl e NADERER, [...] NADERER, DR JORGE Masters Primary Care Unavailable RojasereJorge davis MD Primary Care Provider [phone] Jorge Camejo MD Primary Care Provider GUMARO MALHOTRA Attending JORGE Martin Primary Care Unavailabl buster PALMER JR., MARIE Rodriguez Attending JORGE Busby Referring JORGE Martin Attending Prince CAMEJO, JORGE Attending Unavailable JORGE CAMEJO Attending Unavailable JR. GRAHAM, MARIE Rodriguez Attending JORGE Busby Attending Unavailable Jorge Camejo MD Primary Care Provider [phone] Oscar Walters MD Attending Provider [phone] Jorge Camejo MD Attending Provider [phone] Jorge Camejo MD Primary Care Provider [phone] Medications Current Medications Medication Drug Class(es) Dates Sig (Normalized) Sig (Original) furosemide 40 mg oral tablet (20 sources) Loop Diuretic Start: 06-22-2022 take 1 tablet by mouth once daily furosemide (Lasix) 40 MG tablet Indications: Edema , Localized edema TAKE 1 TABLET BY MOUTH EVERY DAY 90 tablet 3 09/22/2024 Active levothyroxine sodium 0.15 mg oral tablet (20 sources) l-Thyroxine Start: 06-22-2022 End: 12-31-2024 take 1 tablet by mouth once daily levothyroxine (Synthroid, Levoxyl) 150 MCG tablet Indications: Acquired hypothyroidism TAKE 1 TABLET BY MOUTH EVERY DAY 90 tablet 3 12/31/2024 Active take 1 tablet by anisa th once daily in the morning Levothyroxine Sodium 150 MCG 1 tablet in the morning on an empty stomach Orally Once a day Active mupirocin 0.02 mg/mg topical ointment (20 sources) RNA Synthetase Inhibitor Antibacterial Start: 10-21-2022 mupirocin (Bactroban) 2 % ointment APPLY TO AFFECTED AREA 3 TIMES A DAY 10/21/2022 Active pregabalin 75 mg oral capsule (20 sources) Start: 06-22-2022 End: 05-25-2025 take 1 capsule by mouth twice daily pregabalin (Lyrica) 75 MG capsule Indications: Other spondylosis with radiculopathy, lumbosacral region , Lumbosacral spondylosis without myelopathy TAKE 1 CAPSULE BY MOUTH TWICE A DAY 60 capsule 2 05/25/2025 Active traMADol hydrochloride 50 mg oral tablet (20 sources) Opioid Agonist Start: 06-22-2022 take 2 tablets by mouth twice daily as needed for pain Tramadol 50 mg tablet Active 100 MG PO Twice daily as needed for Pain June 22, 2022 12:00am Complies with drug therapy Completed/Discontinued Medications Medication Drug Class(es) Dates Sig (Normalized) Sig (Original) [id number] 200 actuat albuterol 0.09 mg/actuat metered dose inhaler (2 sources) beta2-Adrenergic Agonist Start: 12-08-2022 take 2 puff(s) by mouth every four hours as needed Albuterol Sulfate HFA 108 (90 Base) MCG/ACT Inhalation Aerosol Solution TAKE 2 PUFFS BY MOUTH EVERY 4 HOURS NEEDED Quantity: 18 Refills: 0 Ordered: 08-Dec-2022 DO Start : 08-Dec-2022 Active diclofenac sodium 0.01 mg/mg topical gel (4 sources) Nonsteroidal Anti-inflammatory Drug Start: 06-24-2022 End: 06-12-2024 Diclofenac Sodium (Arthritis Pain (Diclofenac)) 1 % gel Discontinued 2 GM TOPICAL Four times daily as needed for Osteoarthritis 100 June 24, 2022 2:22pm June 12, 2024 1:40pm Start: 06-22-2022 End: 06-24-2022 take 1 tablet by mouth twice daily as needed for pain Diclofenac Sodium 75 mg tablet,delayed release (DR/EC) Discontinued 75 MG PO Twice daily as needed for Pain June 22, 2022 12:00am June 24, 2022 2:41pm 3 ml sodium hyaluronate 10 mg/ml prefilled syringe (4 sources) Start: 12-09-2024 End: 12-09-2024 cross-linked hyaluronate (Gel-One) injection 30 mg Start: 12-09-2024 End: 12-09-2024 30 mg, Intra-articular, Once PRN Procedure, Starting on Sun12/09/24 at 1141, For 1 dose lisinopril 10 mg oral tablet (2 sources) Angiotensin Converting Enzyme Inhibitor Start: 06-22-2022 End: 06-12-2024 take 1 tablet by mouth once daily Lisinopril 10 mg tablet Discontinued 10 MG PO Daily June 22, 2022 12:00am June 12, 2024 1:44pm On Hold: Until cleared by primary care physician 1 ml methylPREDNISolone acetate 40 mg/ml injection (2 sources) Corticosteroid Start: 12-12-2023 End: 12-12-2023 methylPREDNISolone acetate (DEPO-Medrol) injection 20 mg rivaroxaban 20 mg oral tablet (14 sources) Factor Xa Inhibitor Start: 06-24-2022 End: 06-12-2024 take 1 tablet by mouth once daily at dinner Rivaroxaban (Xarelto) 20 mg Tablet Discontinued 20 MG PO Every evening June 24, 2022 12:00am June 12, 2024 1:43pm must administer with evening meal continuation order after starter pack Start: 06-23-2022 End: 06-12-2024 Rivaroxaban (Xarelto Dvt-Pe Treat 30d Start) 15 mg (42)- 20 mg (9) Tablets,Dose Pack Discontinued 0 .ROUTE .COMPLEX 51 June 23, 2022 12:00am June 12, 2024 1:43pm take one-15 mg tablet twice daily for 21 days, then one-20 mg tablet once daily; must take with meal/food spironolactone 25 mg oral tablet (20 sources) Aldosterone Antagonist Start: 07-03-2024 End: 05-03-2025 take 1 tablet by mouth twice daily Spironolactone 25 mg tablet Discontinued 0 .ROUTE .COMPLEX 180 May 03, 2025 11:20am May 03, 2025 4:26pm TAKE 1 TABLET BY MOUTH TWICE A DAY Start: 02-25-2024 End: 07-03-2024 take 1 tablet by mouth in the morning spironolactone (Aldactone) 25 MG tablet Indications: Chronic diastolic heart failure (HCC) Take 1 tablet (25 mg) by mouth in the morning and 1 tablet (25 mg) before bedtime. 02/25/2024 Active Start: 08-31-2022 take 1 tablet by anisa th once daily Spironolactone 25 MG Oral Tablet [...] Classification Problem Date Documented Da te Episodic/Chronic Acute and unspecified renal failure (6 sources) Acute kidney failure, unspecified; Translations: [Acute renal failure syndrome] Onset: 06-23-2022 Episodic Comment on above: Problem List clean-u p per request of Phys. EHR Cmte Chronic kidney disease (20 sources) Chronic kidney disease; Translations: [Chronic kidney disease, unspecified] Onset: 07-17-2022 01-17-2024 Chronic Chronic obstructive pulmonary disease and bronchiectasis (20 sources) Chronic obstructive lung disease; Translations: [Chronic obstructive pulmonary disease, unspecified] Onset: 11-26-2023 Resolved: 02-25-2024 11-26-2023 Chronic Congestive heart failure; nonhypertensive (20 sources) Congestive heart failure; Translations: [Heart failure, unspecified] Onset: 06-23-2022 Chronic Comment on above: Problem List clean-u p per request of Phys. EHR Cmte Disorders of lipid metabolism (20 sources) Hyperlipidemia, unspecified; Translations: [Dyslipidemia] Onset: 04-12-2022 11-26-2023 Chronic Essential hypertension (20 sources) Essential (primary) hypertension; Translations: [Benign essential hypertension] Onset: 04-05-2022 Chronic Comment on above: Problem List clean-u p per request of Phys. EHR Cmte Hypertension with complications and secondary hypertension (13 sources) Malignant hypertensive chronic kidney disease; Translations: [Hypertensive chronic kidney disease with stage 1 through stage 4 chronic kidney disease, or unspecified chronic kidney disease] Onset: 06-26-2022 Chronic Osteoarthritis (20 sources) Osteoarthritis of right hip joint; Translations: [Unilateral primary osteoarthritis, right hip] Onset: 11-26-2023 11-26-2023 Chronic Other aftercare (2 sources) Patient encounter status; Translations: [Other property insurance claims examiner (current) drug therapy] Onset: 11-26-2023 11-26-2023 Episodic Other and ill-defined heart disease (1 source) Cardiomegaly; Translations: [Cardiomegaly] Onset: 06-23-2022 Chronic Other and ill-defined heart disease (2 sources) Right ventricular hypertrophy; Translations: [Cardiomegaly] 10-17-2023 Chronic Comment on above: Problem List clean-u p per request of Phys. BRETT Cejae Other connective tissue disease (1 source) Acquired [...] [OTHER SPECIFIED MONONEUROPATHIES] Onset: 10-10-2022 Chronic Other non-traumatic joint disorders (2 sources) Pain in left knee; Translations: [Pain in joint, lower leg] 12-08-2024 Episodic Other nutritional; endocrine; and metabolic disorders (4 [...] nutritional; endocrine; and metabolic disorders (4 sources) Morbid obesity; Translations: [Morbid (severe) obesity due to excess calories] Onset: 11-26-2023 11-26-2023 Chronic Other nutritional; endocrine; and metabolic disorders (2 sources) Body mass index (BMI) 50.0-59.9, adult; Translations: [Body mass index (BMI) 50.0-59.9, adult ([facility])] Onset: 01-17-2024 Chronic Other nutritional; endocrine; and metabolic disorders (20 sources) Severe obesity; Translations: [Class 3 severe obesity due to excess calories with serious comorbidity and body mass index (BMI) of 50.0 to 59.9 in adult] Onset: 11-26-2023 08-27-2024 Chronic Other nutritional; endocrine; and metabolic disorders (2 sources) Obesity; Translations: [Obesity, unspecified] 10-17-2023 Chronic Comment on above: Problem List clean-u p per request of Phys. EHR Cmte Phlebitis; thrombophlebitis and thromboembolism (20 sources) Deep venous thrombosis; Translations: [Acute venous embolism and thrombosis of unspecified deep vessels of lower extremity] Onset: 06-23-2022 Episodic Comment on above: Problem List clean-u p per request of Phys. EHR Cmte Pulmonary heart disease (18 sources) Pulmonary embolism; Translations: [Other pulmonary embolism and infarction] Onset: 06-23-2022 Episodic Residual codes; unclassified (1 source) Sleep apnea, unspecified; Translations: [SLEEP APNEA UNSPECIFIED] Onset: 06-26-2022 Chronic Residual codes; unclassified (20 sources) Obstructive sleep apnea syndrome; Translations: [Obstructive sleep apnea (adult) (pediatric)] Onset: 11-26-2023 11-26-2023 Chronic Residual codes; unclassified (2 sources) Edema; Translations: [Edema] Onset: 11-29-2023 11-29-2023 Episodic Screening and history of mental health and substance abuse codes (5 sources) Ex-smoker; Translations: [Personal history of tobacco use] Onset: 01-17-2024 01-17-2024 Episodic Spondylosis; intervertebral disc disorders; other back problems (20 sources) Lumbosacral spondylosis with radiculopathy; Translations: [Other spondylosis with radiculopathy, lumbosacral region] Onset: 11-26-2023 11-26-2023 Chronic Spondylosis; intervertebral disc disorders; other back problems (10 sources) Spinal stenosis, lumbar region without neurogenic claudication; Translations: [Intervertebral disc disorders with radiculopathy, lumbar region] Onset: 02-16-2022 Episodic Thyroid disorders (20 sources) Hypothyroidism, unspecified; Translations: [Acquired hypothyroidism] Onset: 06-23-2022 11-26-2023 Chronic Comment on above: Problem List clean-u p per request of Phys. EHR Cmte Unclassified (4 sources) LOW BACK PAIN, UNSPECIFIED; Translations: [LOW BACK PAIN, UNSPECIFIED] Onset: 10-10-2022 Unclassified (1 source) PERSONAL HISTORY OF COVID-19; Translations: [PERSONAL HISTORY OF COVID-19] Onset: 07-17-2022 Unclassified (1 source) POST COVID-19 CONDITION UNSPECIFIED; Translations: [POST COVID-19 CONDITION UNSPECIFIED] Onset: 06-26-2022 Unclassified (1 source) CONTACT W/AND (SUSP) EXPOS COVID-19; Translations: [CONTACT W/AND (SUSP) EXPOS COVID-19] Onset: 06-26-2022 Viral infection (2 sources) Disease caused by 2019-nCoV; Translations: [COVID-19] 10-17-2023 Episodic Comment on above: Problem List clean-u p per request of Phys. EHR Cmte Viral infection (1 source) COVID-19; Translations: [COVID-19] Onset: 06-23-2022 Past or Other Problems Problem Classification Problem Date Documented Date Episodic/Chronic Abdominal pain (4 sources) Right lower quadrant pain; Translations: [RIGHT LOWER QUADRANT PAIN] Onset: 02-24-2022 Episodic Chronic kidney disease (7 sources) Chronic kidney disease; Translations: [CHRONIC KIDNEY DISEASE STAGE 3B] Onset: 10-03-2022 Chronic ulcer of skin (18 sources) Superficial skin ulcer of lower limb; Translations: [Non-pressure chronic ulcer of unspecified part of left lower leg limited to breakdown of skin] Onset: 05-27-2024 Resolved: 04-13-2025 05-27-2024 Chronic Diabetes mellitus without complication (20 sources) Prediabetes; Translations: [Prediabetes] Onset: 04-12-2022 11-26-2023 Episodic Mood disorders (6 sources) Mood disorders Onset: 04-13-2025 04-13-2025 Other aftercare (1 source) Other property insurance claims examiner (current) drug therapy; Translations: [OTH DINING ROOM ATTENDANT CURRENT DRUG THERAPY] Onset: 06-26-2022 Episodic Other aftercare (20 sources) Long-term current use of drug therapy; Translations: [Other correction (current) drug therapy] Onset: 11-26-2023 11-26-2023 Episodic Other hematologic conditions (1 source) Other specified abnormalities of plasma proteins; Translations: [Other specified abnormalities of plasma proteins] Onset: 06-23-2022 Episodic Other screening for suspected conditions (not mental disorders or infectious disease) (20 sources) Other specified abnormal findings of blood chemistry; Translations: [Encounter for screening for malignant neoplasm of prostate] Onset: 04-12-2022 11-26-2023 Episodic Comment on above: Problem List clean-u p per request of Phys. EHR Cmte Unclassified (1 source) LOW BACK PAIN, UNSPECIFIED; Translations: [LOW BACK PAIN, UNSPECIFIED] Onset: 01-25-2023 Unclassified (1 source) Onset: 01-17-2024 01-17-2024 Results Test Name Value Interpretation Reference Range Facility [facility] CBC WITH PLATELET NO DI FFERENTIALon 05-26-2025 Erythrocyte distribution width (RBC) [Ratio] 13.3 % 11.0 - 15.0 % [facility] Hematocrit (Bld) [Volume fraction] 50.3 % 42.0 - 54.0 % [facility] Hemoglobin (Bld) [Mass/Vol] 16.9 g/dL 14.0 - 18.0 g/dL [facility] MCH (RBC) [Entitic mass] 31.1 pg 25.9 - 34.0 pg [facility] MCHC (RBC) [Mass/Vol] 33.6 g/dL 29.9 - 35.2 g/dL [facility] MCV (RBC) [Entitic vol] 92.5 fL 80.0 - 94.0 fL [facility] Platelet mean volume (Bld) [Entitic vol] 9.7 fL 9.5 - 13.5 fL [facility] TBH PLT 292 [facility] RBC 5.44 [facility] WBC 7.9 [facility] ALL CBC WITH AUTO DIFFon BASOPHILS ABSOLUTE AUTO 0 [facility] Basophils/100 WBC (Bld) 0.4 % 0.2 - 2.0 % [facility] Eosinophils/100 WBC (Bld) 1.5 % 0.9 - 7.0 % [facility] Erythrocyte distribution width (RBC) [Ratio] 13.7 % 11.0 - 15.0 % [facility] Hematocrit (Bld) [Volume fraction] 50 % 42.0 - 54.0 % [facility] Hemoglobin (Bld) [Mass/Vol] 16.7 g/dL 14.0 - 18.0 g/dL [facility] IMMATURE GRANULOCYTES ABS AUTO 0.02 [facility] Immature granulocytes/100 WBC (Bld) 0.3 % 0.0 - 0.5 % [facility] LYMPHOCYTES ABSOLUTE AUTO 1.8 [facility] Lymphocytes/100 WBC (Bld) 24.4 % 20.5 - 60.0 % [facility] MCH (RBC) [Entitic mass] 30.7 pg 25.9 - 34.0 pg [facility] MCHC (RBC) [Mass/Vol] 33.4 g/dL 29.9 - 35.2 g/dL [facility] MCV (RBC) [Entitic vol] 91.9 fL 80.0 - 94.0 fL [facility] MONOCYTES ABSOLUTE AUTO 0.5 [facility] Monocytes/100 WBC (Bld) 7.4 % 1.7 - 12.0 % [facility] NEUTROPHILS ABSOLUTE AUTO 4.8 [facility] Neutrophils/100 WBC (Bld) 66 % 43.0 - 75.0 % [facility] Platelet mean volume (Bld) [Entitic vol] 10 fL 9.5 - 13.5 fL [facility] TBH EO # 0.1 [facility] TBH PLT 282 [facility] RBC 5.44 [facility] WBC 7.2 [facility] No Panel Informationon 12-09 Jr. Marie rodriguez, DO 12/10/2024 12:54 PM L Inj/Asp: L knee on 12/09/2024 11:41 AM Indications: pain Details: 21 G needle, anterolateral approach Medications: 30 mg cross-linked hyaluronate 30 MG/3ML Outcome: tolerated well, no immediate complications UTILIZING ASEPTIC TECHNIQUE PT GIVEN INJECTION IN LEFT KNEE, NEUROVASC INTACT S/P INJ, TOLERATED WELL Procedure, treatment alternatives, risks and benefits explained, specific risks discussed. Consent was given by the patient. [facility] Hand / UE Inj/Asp: Susan Masters 1on 12-12-2023 Jr. Marie rodriguez DO 12/12/2023 2:36 PM Hand / UE Inj/Asp: R small A1 [...] risks and benefits explained, specific risks discussed. [facility] Office Visit (Cardiology)on 01-04-2023 Follow-up visit [...] chronic renal failure and follows with Dr. Kadir. He remains on Xarelto therapy with no [...] Recorded: 04Jan2023 11:33AM Heart Rate64, L Radial Jzqptdor686, LUE, Sitting Vyhlprxoa50, LUE, Sitting Height5 ft 11 in Notreq626 lb BMI Hsdgfdaydl81.51 kg/m2 BSA Calculated2.69 Tobacco Useb) No PHQ-2 [...] . Signatures Electronically signed by : Gumaro Malhotra DO; Jan 04 2023 12:41PM EST (Author) Normal Silense[facility] Tobacco Screening.on 023 Adult depression screening assessment No [facility] [employer] [facility] 250 DO Work Phone: Fall risk assessment a) No falls within the last year [facility] 250 DO Work Phone: Tobacco use status [facility] b) No [facility] 250 DO Work Phone: FREE T3on 12-07-2022 FREE T3 2.63 pg/mlL Normal 2.18-3.98 [facility] Comment on above: Performed By: #### T SH, FT3 #### [facility] [address] [place] [address] Dr. Cole Echeverria FREE T4on 12-07-2022 Free T4 [Mass/Vol] 1.44 ng/dL Normal 0.76-1.46 [facility] Comment on above: Performed By: #### T SH, FT3 #### [facility] [address] [place] [address] Dr. Cole Echeverria HEMOGLOBINon 12-07-2022 Hemoglobin (Bld) [Mass/Vol] 14.0 g/dL Normal 14.0-18.0 [facility] Comment on above: Performed By: #### F T4, PSASC #### [facility] [address] [place] [address] Dr. Cole Echeverria TSHon 12-07-2022 TSH 0.710 uIU/mL Normal 0.358-3.740 [facility] Comment on above: Performed By: #### T SH, FT3 #### [facility] [address] [place] [address] Dr. Cole Echeverria PTH INTACTon 10-04-2022 PTH, Intact 13 pg/mL Critically low 15-65 [facility] Comment on above: Performed By: #### P THINT #### [facility] [address] [place] [address] Dr. Cole Echeverria HEMOGRAM AND PLATELon 2021 Hematocrit (Bld) [Volume fraction] 44.9 % Normal 42.0-54.0 [facility] Comment on above: Performed By: #### F T4, PSASC #### [facility] [address] [place] [address] Dr. Cole Echeverria Hemoglobin (Bld) [Mass/Vol] 14.4 g/dL Normal 14.0-18.0 [facility] Comment on above: Performed By: #### F T4, PSASC #### [facility] [address] [place] [address] Dr. Cole Echeverria MCH (RBC) [Entitic mass] 27.0 pg Normal 25.9-34.0 [facility] Comment on above: Performed By: #### F T4, PSASC #### [facility] [address] [place] [address] Dr. Cole Echeverria MCHC (RBC) [Mass/Vol] 32.1 g/dL Normal 29.9-35.2 [facility] Comment on above: Performed By: #### F T4, PSASC #### [facility] [address] [place] [address] Dr. Cole Echeverria MCV (RBC) [Entitic vol] 84.1 fL Normal 80.0-94.0 [facility] Comment on above: Performed By: #### F T4, PSASC #### [facility] [address] [place] [address] Dr. Cole Echeverria PLT 330 103/ul Normal 150-450 [facility] Comment on above: Performed By: #### F T4, PSASC #### [facility] [address] [place] [address] Dr. Cole Echeverria RBC 5.34 106/ul Normal 4.70-6.10 [facility] Comment on above: Performed By: #### F T4, PSASC #### [facility] [address] [place] [address] Dr. Cole Echeverria WBC 8.7 103/ul Normal 4.0-11.0 [facility] Comment on above: Performed By: #### F T4, PSASC #### [facility] [address] [place] [address] Dr. Cole Echeverria PHOSPHORUSon 10-03-2022 Phosphate [Mass/Vol] 3.8 mg/dL Normal 2.6-4.7 [facility] Comment on above: Performed By: #### T SH, FT3 #### [facility] [address] [place] [address] Dr. Cole Echeverria PROF 14(COMP METB)on 022 Albumin [Mass/Vol] 3.1 g/dL Critically low 3.4-5.0 [facility] Comment on above: Performed By: #### T SH, FT3 #### [facility] [address] [place] [address] Dr. Cole Echeverria Albumin/Globulin [Mass ratio] 0.6 {ratio} Normal [facility] Comment on above: Performed By: #### T SH, FT3 #### [facility] [address] [place] [address] Dr. Cole Echeverria ALP [Catalytic activity/Vol] 94 U/L Normal 46-116 [facility] Comment on above: Performed By: #### T SH, FT3 #### [facility] [address] [place] [address] Dr. Cole Echeverria ALT [Catalytic activity/Vol] 11 U/L Critically low 16-63 [facility] Comment on above: Performed By: #### T SH, FT3 #### [facility] [address] [place] [address] Dr. Cole Echeverria Anion gap [Moles/Vol] 9.3 mmol/L Normal [facility] Comment on above: Performed By: #### T SH, FT3 #### [facility] [address] [place] [address] Dr. Coel Echeverria AST [Catalytic activity/Vol] 13 U/L Critically low 15-37 The [facility] Comment on above: Performed By: #### T SH, FT3 #### [facility] [address] [place] [address] Dr. Cole Echeverria Bilirubin [Mass/Vol] 0.5 mg/dL Normal 0.2-1.0 [facility] Comment on above: Performed By: #### T SOPHIE, FT3 #### [facility] [address] [place] [address] Dr. Cole Echeverria Calcium [Mass/Vol] 9.6 mg/dL Normal 8.5-10.1 The [facility] Comment on above: Performed By: #### T SOPHIE, FT3 #### [facility] [address] [place] [address] Dr. Cole Echeverria Chloride [Moles/Vol] 101 mmol/L Normal 98-107 [facility] Comment on above: Performed By: #### T SOPHIE, FT3 #### [facility] [address] [place] [address] Dr. Cole Echeverria CO2 [Moles/Vol] 31.6 mmol/L Normal 21.0-32.0 The [facility] Comment on above: Performed By: #### T SOPHIE, FT3 #### [facility] [address] [place] [address] Dr. Cole Echeverria Creatinine [Mass/Vol] 1.13 mg/dL Normal 0.70-1.30 [facility] Comment on above: Performed By: #### T SOPHIE, FT3 #### [facility] [address] [place] [address] Dr. Cole Echeverria EGFR-AF FINNISH >60 Normal >=60 [facility] Comment on above: Performed By: #### T SOPHIE, FT3 #### [facility] [address] [place] [address] Dr. Cole Echeverria EGFR-NON AF FINNISH >60 Normal >=60 [facility] Comment on above: Performed By: #### T SH, FT3 #### [facility] [address] [place] [address] Dr. Cole Echeverria Globulin (S) [Mass/Vol] 5.0 g/dL Normal [facility] Comment on above: Performed By: #### T SH, FT3 #### [facility] [address] [place] [address] Dr. Cole Echeverria Glucose [Mass/Vol] 104 mg/dL Normal 74-106 The [facility] Comment on above: Performed By: #### T SH, FT3 #### [facility] [address] [place] [address] Dr. Cole Echeverria Potassium [Moles/Vol] 3.9 mmol/L Normal 3.5-5.1 [facility] Comment on above: Performed By: #### T SOPHIE, FT3 #### [facility] [address] [place] [address] Dr. Cole Echeverria Protein [Mass/Vol] 8.1 g/dL Normal 6.4-8.2 The [facility] Comment on above: Performed By: #### T SH, FT3 #### [facility] [address] [place] [address] Dr. Cole Echeverria Sodium [Moles/Vol] 138 mmol/L Normal 136-145 The [facility] Comment on above: Performed By: #### T SH, FT3 #### [facility] [address] [place] [address] Dr. Cole Echeverria Urea nitrogen [Mass/Vol] 21.0 mg/dL Critically high 7.0-18.0 [facility] Comment on above: Performed By: #### T SH, FT3 #### [facility] [address] [place] [address] Dr. Cole Echeverria Urea nitrogen/Creatinine [Mass ratio] 18.6 mg/mg Normal [facility] Comment on above: Performed By: #### T SH, FT3 #### [facility] [address] [place] [address] Dr. Cole Echeverria URINE T PROTEIN CREAT RATIOo n 10-03-2022 Protein (U) [Mass/Vol] 7.0 mg/dL Normal <=12.0 [facility] Comment on above: Performed By: #### T SH, FT3 #### [facility] [address] [place] [address] Dr. Cole Echeverria UR PROT CREAT RAT 0.11 Normal [facility] Comment on above: Performed By: #### T SH, FT3 #### [facility] [address] [place] [address] Dr. Cole Echeverria URINE CREAT 62.81 mg/dL Normal 20.00-300.00 [facility] Comment on above: Performed By: #### T SH, FT3 #### [facility] [address] [place] [address] Dr. Cole Echeverria VITAMIN D 25 OHon 10-03-2022 VIT D 25-OH 52.1 ng/mL Normal [facility] Comment on above: Performed By: #### T SH, FT3 #### [facility] [address] [place] [address] Dr. Cole Echeverria VIT D RANGES SEE BELOW Normal [facility] Comment on above: Result Comment: <20 ng/mL Vit D deficient 20 - <30 ng/mL Vit D insufficient 30 - 100 ng/mL Vit D sufficient >100 ng/mL Potential Toxicity Performed By: #### T SH, FT3 #### [facility] [address] [place] [address] Dr. Cole Echeverria BNPon 07-12-2022 Natriuretic peptide B (Bld) [Mass/Vol] 1748.0 pg/mL Normal <=1,800.0 [facility] Comment on above: Performed By: #### F T4, PSASC #### [facility] [address] [place] [address] Dr. Cole Echeverria Office Visit (Cardiology)on 07-12-2022 [...] Metabolic Panel; Status:Active - Retrospective Authorization; Requested for:[id number]; Brain Natriuretic Peptide BNP; Status:Active - Retrospective Authorization; Requested for:[id number]; Health Maintenance Basic Metabolic Panel; Status:Canceled - Retrospective Authorization; Morbid obesity with BMI of 50.0-59.9, adult Healthy Weight Tips; Status:Complete - Retrospective Authorization; Done: [id number] Unlinked Healthy Weight Tips; Status:Complete - Retrospective Authorization; Done: [id number] Tobacco Use Screening; Status:Complete; Done: [id number] Tobacco Use Screening; Status:Complete; Done: [id number] Patient Instructions Please bring all medicines, vitamins, [...] in 6 months Chief Complaint 07/05/2022 [facility] DC SP EKOS. [...] negative for complaint. Vitals Vital Signs Recorded: [id number] 11:36AM Heart Evrd997, L Radial Hfddzqhr702, LUE, Sitting Dxudbrols32, LUE, Sitting Height5 ft 11 in Nbovul936 lb BMI Lpsaoflciy12.05 kg/m2 BSA Calculated2.73 Tobacco Useb) No PHQ-2 [...] no thyrom (more content not included)... Normal [employer] PROF CHEM 8 (BAS METB)on Anion gap [Moles/Vol] 10.2 mmol/L Normal [facility] Comment on above: Performed By: #### F T4, PSASC #### [facility] [address] [place] [address] Dr. Cole Echeverria Calcium [Mass/Vol] 8.9 mg/dL Normal 8.5-10.1 [facility] Comment on above: Performed By: #### F T4, PSASC #### [facility] [address] [place] [address] Dr. Cole Echeverria Chloride [Moles/Vol] 97 mmol/L Critically low 98-107 [facility] Comment on above: Performed By: #### F T4, PSASC #### [facility] [address] [address] [address] Cole Echeverria CO2 [Moles/Vol] 32.3 mmol/L Critically high 21.0-32.0 [facility] Comment on above: Performed By: #### F T4, PSASC #### [facility] [address] [address] [address] Cole Echeverria Creatinine [Mass/Vol] 1.18 mg/dL Normal 0.70-1.30 [facility] Comment on above: Performed By: #### F T4, PSASC #### [facility] [address] [address] [address] Cole Echeverria EGFR-AF FINNISH >60 Normal >=60 [facility] Comment on above: Performed By: #### F T4, PSASC #### [facility] [address] [address] [address] Cole Echeverria EGFR-NON AF FINNISH =60 Normal >=60 [facility] Comment on above: Performed By: #### F T4, PSASC #### [facility] [address] [address] [address] Cole Echeverria Glucose [Mass/Vol] 104 mg/dL Normal 74-106 [facility] Comment on above: Performed By: #### F T4, PSASC #### [facility] [address] [address] [address] Cole Echeverria Potassium [Moles/Vol] 3.5 mmol/L Normal 3.5-5.1 [facility] Comment on above: Performed By: #### F T4, PSASC #### [facility] [address] [address] [address] Cole Echeverria Sodium [Moles/Vol] 136 mmol/L Normal 136-145 [facility] Comment on above: Performed By: #### F T4, PSASC #### [facility] [address] [place] [address] Dr. Cole Echeverria Urea nitrogen [Mass/Vol] 11.0 mg/dL Normal 7.0-18.0 [facility] Comment on above: Performed By: #### F T4, PSASC #### [facility] [address] [address] [address] Cole Echeverria Urea nitrogen/Creatinine [Mass ratio] 9.3 mg/mg Normal [facility] Comment on above: Performed By: #### F T4, PSASC #### [facility] [address] [address] [address] Cole Echeverria Tobacco Screening.on 022 Adult depression screening assessment No [facility] [employer] [facility] 250 DO Work Phone: Fall risk assessment a) No falls within the last year [facility] 250 DO Work Phone: Tobacco use status [facility] b) No [facility] 250 DO Work Phone: Basic Metabolic Panelon 06-06 Calcium [Mass/Vol] 8.7 mg/dL Normal 8.2-10.2 [facility] Comment on above: Performed By: #### C BC, BMP #### [facility] [address] Chloride [Moles/Vol] 104 mmol/L Normal 95-114 [facility] Comment on above: Performed By: #### C BC, BMP #### [facility] [address] CO2 [Moles/Vol] 28.0 mmol/L Normal 22.0-30.0 [facility] Comment on above: Performed By: #### C BC, BMP #### [facility] [address] Creatinine [Mass/Vol] 1.60 mg/dL High 0.64-1.27 [facility] Comment on above: Performed By: #### C BC, BMP #### [address] Creatinine Clr Calc Pharmacy 62.30 [facility] Comment on above: Result Comment: PERF ORMED BY: [place] [address] PATHOLOGIST CEO NA ADRIEN RAMIREZ M.D. Performed By: #### C BC, BMP #### [address] Estimated GFR ( Janeen 51 [facility] Comment on above: Result Comment: GFR estimated reference range: According to KDOQI guidelines, <60 ml/min/1.73m2 is sufficient to diagnose a patient with chronic kidney disease. Performed By: #### C BC, BMP #### [address] Estimated GFR (Non- Am 42 [facility] Comment on above: Performed By: #### C BC, BMP #### [facility] [address] [place] [address] Glucose [Mass/Vol] 111 mg/dL High 70-100 [facility] Comment on above: Result Comment: [place] Glucose Reference Range is dependent on time and content of last meal. Glucose of more than 200 mg/dL in a nonstressed, ambulatory subject supports the diagnosis of Diabetes Mellitus. ADA recommended reference range Performed By: #### C BC, BMP #### [address] Potassium [Moles/Vol] 4.1 mmol/L Normal 3.5-5.1 [facility] Comment on above: Performed By: #### C BC, BMP #### [address] Sodium [Moles/Vol] 139 mmol/L Normal 136-146 [facility] Comment on above: Performed By: #### C BC, BMP #### [address] Urea nitrogen [Mass/Vol] 35 mg/dL High 9- [facility] Comment on above: Performed By: #### C BC, BMP #### [address] Complete Blood Count Auto Di ffon 06-24-2022 Basophils (Bld) [#/Vol] 0.1 10*3/uL Normal 0.0-0.2 [facility] Comment on above: Result Comment: PERF ORMED BY: [place] [address] PATHOLOGIST CEO NA ADRIEN RAMIREZ M.D. Performed By: #### C BC, BMP #### [address] Basophils/100 WBC (Bld) 0.6 % Normal . [facility] Comment on above: Performed By: #### C BC, BMP #### [place] [address] [place] Eosinophils (Bld) [#/Vol] 0.6 10*3/uL High 0.0-0.45 [facility] Comment on above: Performed By: #### C BC, BMP #### [address] Eosinophils/100 WBC (Bld) 7.2 % Normal . [facility] Comment on above: Performed By: #### C BC, BMP #### [place] [id number] [place] Erythrocyte distribution width (RBC) [Ratio] 14.9 % High 12.0-14.8 [facility] Comment on above: Performed By: #### C BC, BMP #### [address] Hematocrit (Bld) [Volume fraction] 39.6 % Normal 38.8-50.0 [facility] Comment on above: Performed By: #### C BC, BMP #### [address] Hemoglobin (Bld) [Mass/Vol] 13.1 g/dL Normal 13.0-17.0 [facility] Comment on above: Performed By: #### C BC, BMP #### [address] Lymphocytes (Bld) [#/Vol] 2.0 10*3/uL Normal 1.00-4.8 [facility] Comment on above: Performed By: #### C BC, BMP #### [address] Lymphocytes/100 WBC (Bld) 23.1 % Normal . [facility] Comment on above: Performed By: #### C BC, BMP #### [address] MCH (RBC) [Entitic mass] 30.2 pg Normal 27.5-35.2 [facility] Comment on above: Performed By: #### C BC, BMP #### [address] MCV (RBC) [Entitic vol] 91.5 fL Normal 83.5-101 [facility] Comment on above: Performed By: #### C BC, BMP #### [address] Mean Corpuscular HGB Conc 33.0 g/dL Normal 32.5-35.6 [facility] Comment on above: Performed By: #### C BC, BMP #### [address] Monocytes (Bld) [#/Vol] 0.6 10*3/uL Normal 0.0-0.8 [facility] Comment on above: Performed By: #### C AMANDEEP, BMP #### [facility] [address] Monocytes/100 WBC (Bld) 7.5 % Normal . [facility] Comment on above: Performed By: #### C AMANDEEP, BMP #### [facility] [address] Neutrophils (Bld) [#/Vol] 5.3 10*3/uL Normal 1.8-7.7 [facility] Comment on above: Performed By: #### C AMANDEEP, BMP #### [address] Neutrophils/100 WBC (Bld) 61.6 % Normal . [facility] Comment on above: Performed By: #### C AMANDEEP, BMP #### [address] Nucleated RBC/100 WBC (Bld) [Ratio] 0.0 % Normal 0-0.5 [facility] Comment on above: Performed By: #### C AMANDEEP, BMP #### [address] Platelet mean volume (Bld) [Entitic vol] 9.0 fL Normal 6.6-10.1 [facility] Comment on above: Performed By: #### C AMANDEEP, BMP #### [facility] [address] Platelets (Bld) [#/Vol] 165 10*3/uL Normal 150-450 [facility] Comment on above: Performed By: #### C AMANDEEP, BMP #### [facility] [address] [place] [address] [place] RBC (Bld) [#/Vol] 4.33 10*6/uL Normal 3.90-5.60 [facility] Comment on above: Performed By: #### C BC, BMP #### [address] WBC (Bld) [#/Vol] 8.6 10*3/uL Normal 4.5-11.0 [facility] Comment on above: Performed By: #### C AMANDEEP, BMP #### [facility] [address] Creatinine, Urine (Random)on 06-24-2022 Creatinine, Urine (Random) 162.5 mg/dL Normal [facility] Comment on above: Result Comment: No r eference range established Performed By: #### C AMANDEEP, BMP #### [facility] [address] Partial Thromboplastin Timeo n 06-24-2022 aPTT Coag (Bld) [Time] 77.2 s High 25.1-36.5 [facility] Comment on above: Result Comment: PERF ORMED BY: [place] [address] PATHOLOGIST CEO NA ADRIEN RAMIREZ M.D. Performed By: #### C AMANDEEP, BMP #### [address] Prothrombin Time INRon 06-24 INR Coag (PPP) [Relative time] 1.9 {INR} Normal [facility] Comment on above: Result Comment: [...] Performed By: #### C AMANDEEP, BMP #### [facility] [address] PT Coag (PPP) [Time] 21.9 s High 9.0-12.9 [facility] Comment on above: Performed By: #### C BC, BMP #### [facility] [address] Thyroid Stim Hormone w/Rflxo n 06-24-2022 Thyroid Stim Hormone w/Rflx 1.06 u[iU]/mL Normal 0.45-5.33 [facility] Comment on above: Order Comment: Comme nt Add on to previous lab draw Result Comment: PERF ORMED BY: [place] [address] PATHOLOGIST CEO NA ADRIEN RAMIREZ M.D. Performed By: #### C BC, BMP #### [address] Total Protein, Urineon 06-24 Protein (U) [Mass/Vol] 7 mg/dL Normal 0-9 [facility] Comment on above: Result Comment: PERF ORMED BY: [place] [address] PATHOLOGIST CEO NA ADRIEN RAMIREZ M.D. Performed By: #### C BC, BMP #### [place] [address] [place] Urinalysison 06-24-2022 Appearance (U) Clear Normal Clear [facility] Comment on above: Order Comment: Name Collection Type:: Voided Performed By: #### C BC, BMP #### [place] [address] [place] Bilirubin,Urine Negative Normal Negative [facility] Comment on above: Order Comment: Name Collection Type:: Voided Performed By: #### C BC, BMP #### [place] [address] [place] Color (U) Yellow Normal Yellow [facility] Comment on above: Order Comment: Name Collection Type:: Voided Performed By: #### C BC, BMP #### [facility] [address] [place] [address] [place] Glucose Ql (U) Normal Normal Normal [facility] Comment on above: Order Comment: Name Collection Type:: Voided Performed By: #### C BC, BMP #### [place] [address] [place] Ketones Ql (U) Negative Normal Negative [facility] Comment on above: Order Comment: Name Collection Type:: Voided Performed By: #### C BC, BMP #### [facility] [address] [place] [address] Leukocyte esterase Test strip Ql (U) Negative Normal Negative [facility] Comment on above: Order Comment: Name Collection Type:: Voided Performed By: #### C BC, BMP #### [address] Nitrite,Urine Negative Normal Negative [facility] Comment on above: Order Comment: Name Collection Type:: Voided Performed By: #### C BC, BMP #### [address] Occult Blood,Urine Negative Normal Negative [facility] Comment on above: Order Comment: Name Collection Type:: Voided Result Comment: PERF ORMED BY: [place] [address] PATHOLOGIST CEO NA ADRIEN RAMIREZ M.D. Performed By: #### C BC, BMP #### [address] pH (U) 5.5 [pH] Normal 5.0-9.0 [facility] Comment on above: Order Comment: Name Collection Type:: Voided Performed By: #### C BC, BMP #### [address] Protein,Urine Negative Normal Negative [facility] Comment on above: Order Comment: Name Collection Type:: Voided Performed By: #### C BC, BMP #### [address] Specificy [place],Urine 1.021 Normal 1.001-1.030 [facility] Comment on above: Order Comment: Name Collection Type:: Voided Performed By: #### C BC, BMP #### [address] Urobilinogen,Urine Normal Normal Normal [facility] Comment on above: Order Comment: Name Collection Type:: Voided Performed By: #### C BC, BMP #### [facility] [address] B-Type Natriuretic Peptideon 06-23-2022 Natriuretic peptide B (Bld) [Mass/Vol] 343.0 pg/mL High 5-100 [facility] Comment on above: Result Comment: PERF ORMED BY: [place] [address] PATHOLOGIST CEO NA ADRIEN RAMIREZ M.D. Performed By: #### B COVERER #### [address] Basic Metabolic Panelon 06-05 Calcium [Mass/Vol] 8.2 mg/dL Normal 8.2-10.2 [facility] Comment on above: Performed By: #### C BC, BMP #### [address] Chloride [Moles/Vol] 103 mmol/L Normal 95-114 [facility] Comment on above: Performed By: #### C BC, BMP #### [address] CO2 [Moles/Vol] 27.3 mmol/L Normal 22.0-30.0 [facility] Comment on above: Performed By: #### C BC, BMP #### [address] Creatinine [Mass/Vol] 1.86 mg/dL High 0.64-1.27 [facility] Comment on above: Performed By: #### C BC, BMP #### [facility] [address] [place] [address] [place] Creatinine Clr Calc Pharmacy 53.59 [facility] Comment on above: Result Comment: PERF ORMED BY: [place] [address] PATHOLOGIST CEO NA ADRIEN RAMIREZ M.D. Performed By: #### C BC, BMP #### [facility] [address] [place], [place] [id number] [place] Estimated GFR ( Janeen 43 Normal [facility] Comment on above: Result Comment: GFR estimated reference range: According to KDOQI guidelines, <60 ml/min/1.73m2 is sufficient to diagnose a patient with chronic kidney disease. Performed By: #### C BC, BMP #### [address] Estimated GFR (Non- Am 36 Normal [facility] Comment on above: Performed By: #### C BC, BMP #### [address] Glucose [Mass/Vol] 144 mg/dL High 70-100 [facility] Comment on above: Result Comment: [place] om Glucose Reference Range is dependent on time and content of last meal. Glucose of more than 200 mg/dL in a nonstressed, ambulatory subject supports the diagnosis of Diabetes Mellitus. ADA recommended reference range Performed By: #### C BC, BMP #### [address] Potassium [Moles/Vol] 3.8 mmol/L Normal 3.5-5.1 [facility] Comment on above: Performed By: #### C BC, BMP #### [address] Sodium [Moles/Vol] 138 mmol/L Normal 136-146 [facility] Comment on above: Performed By: #### C BC, BMP #### [address] Urea nitrogen [Mass/Vol] 42 mg/dL High 9-23 [facility] Comment on above: Performed By: #### C BC, BMP #### [address] Complete Blood Count Auto Di ffon 06-23-2022 Basophils (Bld) [#/Vol] 0.0 10*3/uL Normal 0.0-0.2 [facility] Comment on above: Result Comment: PERF ORMED BY: [place] [address] PATHOLOGIST CEO NA ADRIEN RAMIREZ M.D. Performed By: #### C BC, BMP #### [facility] [address] [place] [address] [place] Basophils/100 WBC (Bld) 0.3 % Normal . [facility] Comment on above: Performed By: #### C BC, BMP #### [facility] [address] [place] [address] [place] Eosinophils (Bld) [#/Vol] 0.6 10*3/uL High 0.0-0.45 [facility] Comment on above: Performed By: #### C BC, BMP #### [facility] [address] [place] [address] [place] Eosinophils/100 WBC (Bld) 6.6 % Normal . [facility] Comment on above: Performed By: #### C AMANDEEP, BMP #### [address] Erythrocyte distribution width (RBC) [Ratio] 14.6 % Normal 12.0-14.8 [facility] Comment on above: Performed By: #### C AMANDEEP, BMP #### [address] Hematocrit (Bld) [Volume fraction] 39.2 % Normal 38.8-50.0 [facility] Comment on above: Performed By: #### C AMANDEEP, BMP #### [address] Hemoglobin (Bld) [Mass/Vol] 12.8 g/dL Low 13.0-17.0 [facility] Comment on above: Performed By: #### C AMANDEEP, BMP #### [place] [address] [place] Lymphocytes (Bld) [#/Vol] 1.8 10*3/uL Normal 1.00-4.8 [facility] Comment on above: Performed By: #### C BC, BMP #### [place] [address] [place] Lymphocytes/100 WBC (Bld) 21.7 % Normal . [facility] Comment on above: Performed By: #### C BC, BMP #### [place] [id number] [place] MCH (RBC) [Entitic mass] 30.0 pg Normal 27.5-35.2 [facility] Comment on above: Performed By: #### C BC, BMP #### [address] MCV (RBC) [Entitic vol] 92.1 fL Normal 83.5-101 [facility] Comment on above: Performed By: #### C BC, BMP #### [address] Mean Corpuscular HGB Conc 32.5 g/dL Normal 32.5-35.6 [facility] Comment on above: Performed By: #### C BC, BMP #### [address] Monocytes (Bld) [#/Vol] 0.5 10*3/uL Normal 0.0-0.8 [facility] Comment on above: Performed By: #### C BC, BMP #### [address] Monocytes/100 WBC (Bld) 6.3 % Normal . [facility] Comment on above: Performed By: #### C BC, BMP #### [address] Neutrophils (Bld) [#/Vol] 5.5 10*3/uL Normal 1.8-7.7 [facility] Comment on above: Performed By: #### C BC, BMP #### [address] Neutrophils/100 WBC (Bld) 65.1 % Normal . [facility] Comment on above: Performed By: #### C BC, BMP #### [address] Nucleated RBC/100 WBC (Bld) [Ratio] 0.0 % Normal 0-0.5 [facility] Comment on above: Performed By: #### C BC, BMP #### [address] Platelet mean volume (Bld) [Entitic vol] 9.1 fL Normal 6.6-10.1 [facility] Comment on above: Performed By: #### C BC, BMP #### [address] Platelets (Bld) [#/Vol] 165 10*3/uL Normal 150-450 [facility] Comment on above: Performed By: #### C BC, BMP #### [address] RBC (Bld) [#/Vol] 4.26 10*6/uL Normal 3.90-5.60 [facility] Comment on above: Performed By: #### C BC, BMP #### [address] WBC (Bld) [#/Vol] 8.4 10*3/uL Normal 4.5-11.0 [facility] Comment on above: Performed By: #### C BC, BMP #### [address] Basophils (Bld) [#/Vol] 0.0 10*3/uL Normal 0.0-0.2 [facility] Comment on above: Result Comment: PERF ORMED BY: [place] [address] PATHOLOGIST CEO NA ADRIEN RAMIREZ M.D. Performed By: #### C BC, CMP, HS TROP #### [address] Basophils/100 WBC (Bld) 0.4 % Normal . [facility] Comment on above: Performed By: #### C BC, CMP, HS TROP #### [address] Eosinophils (Bld) [#/Vol] 0.5 10*3/uL High 0.0-0.45 [facility] Comment on above: Performed By: #### C BC, CMP, HS TROP #### [address] Eosinophils/100 WBC (Bld) 4.0 % Normal . [facility] Comment on above: Performed By: #### C BC, CMP, HS TROP #### [facility] [address] Erythrocyte distribution width (RBC) [Ratio] 14.7 % Normal 12.0-14.8 [facility] Comment on above: Performed By: #### C BC, CMP, HS TROP #### [address] Hematocrit (Bld) [Volume fraction] 41.3 % Normal 38.8-50.0 [facility] Comment on above: Performed By: #### C BC, CMP, HS TROP #### [address] Hemoglobin (Bld) [Mass/Vol] 13.4 g/dL Normal 13.0-17.0 [facility] Comment on above: Performed By: #### C BC, CMP, HS TROP #### [address] Lymphocytes (Bld) [#/Vol] 2.0 10*3/uL Normal 1.00-4.8 [facility] Comment on above: Performed By: #### C BC, CMP, HS TROP #### [address] Lymphocytes/100 WBC (Bld) 17.2 % Normal . [facility] Comment on above: Performed By: #### C BC, CMP, HS TROP #### [place] [address] [place] MCH (RBC) [Entitic mass] 30.1 pg Normal 27.5-35.2 [facility] Comment on above: Performed By: #### C BC, CMP, HS TROP #### [address] MCV (RBC) [Entitic vol] 92.6 fL Normal 83.5-101 [facility] Comment on above: Performed By: #### C BC, CMP, HS TROP #### [facility] [address] [place] [address] [place] Mean Corpuscular HGB Conc 32.4 g/dL Low 32.5-35.6 [facility] Comment on above: Performed By: #### C BC, CMP, HS TROP #### [facility] [address] [place] [address] [place] Monocytes (Bld) [#/Vol] 0.7 10*3/uL Normal 0.0-0.8 [facility] Comment on above: Performed By: #### C BC, CMP, HS TROP #### [facility] [address] [place] [address] [place] Monocytes/100 WBC (Bld) 5.8 % Normal . [facility] Comment on above: Performed By: #### C BC, CMP, HS TROP #### [facility] [address] [place] [address] [place] Neutrophils (Bld) [#/Vol] 8.4 10*3/uL High 1.8-7.7 [facility] Comment on above: Performed By: #### C BC, CMP, HS TROP #### [facility] [address] [place] [address] [place] Neutrophils/100 WBC (Bld) 72.6 % Normal . [facility] Comment on above: Performed By: #### C BC, CMP, HS TROP #### [facility] [address] [place] [address] [place] Nucleated RBC/100 WBC (Bld) [Ratio] 0.0 % Normal 0-0.5 [facility] Comment on above: Performed By: #### C BC, CMP, HS TROP #### [facility] [address] [place] [address] [place] Platelet mean volume (Bld) [Entitic vol] 9.0 fL Normal 6.6-10.1 [facility] Comment on above: Performed By: #### C BC, CMP, HS TROP #### [facility] [address] [place] [id number] [place] Platelets (Bld) [#/Vol] 204 10*3/uL Normal 150-450 [facility] Comment on above: Performed By: #### C BC, CMP, HS TROP #### [facility] [address] [place] [address] RBC (Bld) [#/Vol] 4.45 10*6/uL Normal 3.90-5.60 [facility] Comment on above: Performed By: #### C BC, CMP, HS TROP #### [facility] [address] [place] [address] WBC (Bld) [#/Vol] 11.6 10*3/uL High 4.5-11.0 [facility] Comment on above: Performed By: #### C BC, CMP, HS TROP #### [facility] [address] [place] [address] Comprehensive Metabolic Pane isidro 06-23-2022 Albumin [Mass/Vol] 2.9 g/dL Low 3.2-5.5 [facility] Comment on above: Performed By: #### C BC, CMP, HS TROP #### [address] Albumin/Globulin [Mass ratio] 0.7 {ratio} Normal [facility] Comment on above: Performed By: #### C BC, CMP, HS TROP #### [address] ALP [Catalytic activity/Vol] 70 U/L Normal 32-92 [facility] Comment on above: Performed By: #### C BC, CMP, HS TROP #### [facility] [address] [place] [address] ALT [Catalytic activity/Vol] 20 U/L Normal 10-60 [facility] Comment on above: Performed By: #### C BC, CMP, HS TROP #### [facility] [address] [place] [address] AST [Catalytic activity/Vol] 20 U/L Normal 10-42 [facility] Comment on above: Performed By: #### C BC, CMP, HS TROP #### [facility] [address] [place] [address] Bilirubin [Mass/Vol] 1.2 mg/dL Normal 0.3-1.2 [facility] Comment on above: Performed By: #### C BC, CMP, HS TROP #### [facility] [address] Calcium [Mass/Vol] 8.8 mg/dL Normal 8.2-10.2 [facility] Comment on above: Performed By: #### C BC, CMP, HS TROP #### [facility] [address] Chloride [Moles/Vol] 97 mmol/L Normal 95-114 [facility] Comment on above: Performed By: #### C BC, CMP, HS TROP #### [facility] [address] CO2 [Moles/Vol] 28.1 mmol/L Normal 22.0-30.0 [facility] Comment on above: Performed By: #### C BC, CMP, HS TROP #### [address] Creatinine [Mass/Vol] 1.87 mg/dL High 0.64-1.27 [facility] Comment on above: Performed By: #### C BC, CMP, HS TROP #### [address] Creatinine Clr Calc Pharmacy 52.98 [facility] Comment on above: Result Comment: PERF ORMED BY: [place] [address] PATHOLOGIST CEO NA ADRIEN RAMIREZ M.D. Performed By: #### C BC, CMP, HS TROP #### [address] Estimated GFR ( Janeen 43 Normal [facility] Comment on above: Result Comment: GFR estimated reference range: According to KDOQI guidelines, <60 ml/min/1.73m2 is sufficient to diagnose a patient with chronic kidney disease. Performed By: #### C BC, CMP, HS TROP #### [facility] [address] [place] [address] [place] Estimated GFR (Non- Am 35 Normal [facility] Comment on above: Performed By: #### C BC, CMP, HS TROP #### [facility] [address] [place] [id number] [place] Globulin (S) [Mass/Vol] 4.0 g/dL Normal [facility] Comment on above: Performed By: #### C BC, CMP, HS TROP #### [facility] [address] [place] [address] [place] Glucose [Mass/Vol] 121 mg/dL High 70-100 [facility] Comment on above: Result Comment: [facility] Glucose Reference Range is dependent on time and content of last meal. Glucose of more than 200 mg/dL in a nonstressed, ambulatory subject supports the diagnosis of Diabetes Mellitus. ADA recommended reference range Performed By: #### C BC, CMP, HS TROP #### [facility] [address] [place] [id number] [facility] Potassium [Moles/Vol] 4.1 mmol/L Normal 3.5-5.1 [facility] Comment on above: Performed By: #### C BC, CMP, HS TROP #### [facility] [address] [place] [id number] [place] Protein [Mass/Vol] 6.9 g/dL Normal 6.1-7.9 [facility] Comment on above: Performed By: #### C BC, CMP, HS TROP #### [facility] [address] [place] [phone] [place] Sodium [Moles/Vol] 137 mmol/L Normal 136-146 [facility] Comment on above: Performed By: #### C BC, CMP, HS TROP #### [facility] [address] [place] [phone] [place] Urea nitrogen [Mass/Vol] 41 mg/dL High - [facility] Comment on above: Performed By: #### C BC, CMP, HS TROP #### [facility] [address] [place] [phone] [place] Creatinine, Urine (Random)on 06-23-2022 Creatinine, Urine (Random) 60.1 mg/dL Normal [facility] Comment on above: Result Comment: No r eference range established Performed By: #### U NA, UCREA #### [facility] [address] [place] [address] [place] #### UR UREA NIT #### [facility] , [facility] echo transthoracicon [facility] echo transthoracic [facility] [address] [place] [address] Echocardiogram Signed Patient: Rafael Cabral MR#: [id number] : 1945 Acct:[id number] Age/Sex: 76 / M ADM Date: 06/22/22 Loc: Room: [address] [place] [address] Type: DIS IN Attending Dr: Rafael Napier MD Ordering Provider: Nely Michelle APRN Date of Service: 06/22/22 [facility] echo transthoracic: CHF Copies to: Susi Montes MD, [facility] Nely Michelle APRN Height: 71 in Weight: [...] 13.4 cm Transcribed By: SCV Performed At: 06/23/22 0952 Signed By: Susi Montes MD, FACC 06/23/22 1045 [facility] NM pul perfusionon 2 NM pul perfusion [place] [phone] Nuclear Medicine Report Signed with Mikhailenda Patient: Rafael Cabral MR#: [id number] : 1945 Acct:[id number] Age/Sex: 76 / M ADM Date: 06/22/22 Loc: Room: [address] [place] [address] Type: ADM IN Attending Dr: Rafael Napier MD Copies to: MD Fely Etienne MD Linda Obika, APRN Ordering Provider: Nely Michelle APRN Date of Service: 06/23/22 NM/NM pul perfusion: R/O PE ADDENDUM 1 Patient's nurse was notified of findings at the time of this interpretation at 1511 hours Impression dictated by: Fely Henderson M.D.06/23/2022 3:12 PM Dictation Location: [facility]- Addendum Dictated By: MD Fely Henderson Addendum [...] Fely Henderson M.D.06/23/2022 3:06 PM Dictation Location: [place] [address] Transcribed By: PARUL 06/23/22 1506 Dictated By: Fely Henderson MD 06/23/22 1456 Signed By: 06/23/22 1506 Normal [facility] Partial Thromboplastin Timeo n 06-23-2022 aPTT Coag (Bld) [Time] 88.0 s High 25.1-36.5 [facility] Comment on above: Result Comment: PERF ORMED BY: [facility] [address] [place] [address] PATHOLOGIST CEO NA ADRIEN RAMIREZ M.D. Performed By: #### C BC, BMP #### [place] [address] [place] aPTT Coag (Bld) [Time] 72.0 s High 25.1-36.5 [facility] Comment on above: Result Comment: PERF ORMED BY: [place] [address] PATHOLOGIST CEO NA ADRIEN RAMIREZ M.D. Performed By: #### P TT #### [address] aPTT Coag (Bld) [Time] 53.8 s High 25.1-36.5 [facility] Comment on above: Result Comment: PERF ORMED BY: [place] [address] PATHOLOGIST CEO NA ADRIEN RAMIREZ M.D. Performed By: #### C BC, BMP #### [address] aPTT Coag (Bld) [Time] 43.5 s High 25.1-36.5 [facility] Comment on above: Result Comment: PERF ORMED BY: [place] [address] PATHOLOGIST CEO NA ADRIEN RAMIREZ M.D. Performed By: #### C BC, BMP #### [place] [address] [place] Prothrombin Time INRon 06-23 INR Coag (PPP) [Relative time] 1.3 {INR} Normal [facility] Comment on above: Result Comment: [...] Performed By: #### C BC, BMP #### [address] [place] [address] [place] PT Coag (PPP) [Time] 14.1 s High 9.0-12.9 [facility] Comment on above: Performed By: #### C AMANDEEP, BMP #### [address] INR Coag (PPP) [Relative time] 1.3 {INR} Normal [facility] Comment on above: Result Comment: [...] Performed By: #### C AMANDEEP, BMP #### [facility] [address] [place] [address] PT Coag (PPP) [Time] 14.2 s High 9.0-12.9 [facility] Comment on above: Performed By: #### C AMANDEEP, BMP #### [address] Sodium, Urine (Random)on Sodium (U) [Moles/Vol] 105 mmol/L Normal [facility] Comment on above: Result Comment: No r eference range established PERFORMED BY: [place] [address] PATHOLOGIST CEO NA ADRIEN RAMIREZ M.D. Performed By: #### U NA, UCREA #### [facility] [address] [place] [address] #### UR UREA NIT #### [facility] , Troponin I High Sensitivityo n 06-23-2022 Troponin I High Sensitivity 174 pg/mL Off scale high 0-20 [facility] Comment on above: Result Comment: Resu lts called at 0721 on 06/23/22 PERFORMED BY: [place] [address] PATHOLOGIST CEO NA ADRIEN RAMIREZ M.D. Performed By: #### C BC, BMP #### [address] Troponin I High Sensitivity 244 pg/mL Off scale high 0-20 [facility] Comment on above: Result Comment: Resu lts called at 2345 on 06/22/22 PERFORMED BY: [place] [address] PATHOLOGIST CEO NA ADRIEN RAMIREZ M.D. Performed By: #### C BC, CMP, HS TROP #### [address] Urine Urea Nitrogenon 2021 Urine Urea Nitrogen 392 mg/dL Normal Not Estab. [facility] Comment on above: Result Comment: Perf ormed at: CB - [facility] [address] [id number] [employer] Machine Operator: Solo Burden PhD, Phone: [phone] PERFORMED BY: [place] [address] PATHOLOGIST CEO NA ADRIEN RAMIREZ M.D. Performed By: #### U NA, UCREA #### [address] #### UR UREA NIT #### [facility] , XR chest 1V portableon 06-23 XR chest 1V portable [facility] [address] [place] [address] XRay Report Signed Patient: Rafael Cabral MR#: [id number] : 1945 Acct:[id number] Age/Sex: 76 / M ADM Date: 06/22/22 Loc: Room: [address] [place] [address] Type: ADM IN Attending Dr: Rafael Napier [...] Jayson Marsh M.D.06/23/2022 8:51 AM Dictation Location: [place] [address] Transcribed By: [facility] 06/23/22850 Dictated By: Jayson Marsh DO 06/23/2249 Signed By: 06/23/22850 [facility] BNPon 06-22-2022 Natriuretic peptide B (Bld) [Mass/Vol] 16436.0 pg/mL Critically high <=1,800.0 [facility] Comment on above: Performed By: #### F T4, PSASC #### [facility] [address] [place] [address] Dr. Cole Echeverria CBC AUTO DIFFon 06-22-2022 BASO # 0.0 103/ul Normal 0.0-0.1 [facility] Comment on above: Performed By: #### T SH, FT3 #### [facility] [address] [place] [address] Dr. Cole Echeverria Basophils/100 WBC (Bld) 0.2 % Normal 0.2-2.0 [facility] Comment on above: Performed By: #### T SH, FT3 #### [facility] [address] [place] [address] Dr. Cole Echeverria EO # 0.3 103/ul Normal 0.0-0.7 [facility] Comment on above: Performed By: #### T SH, FT3 #### [facility] [address] [place] [address] Dr. Cole Echeverria Eosinophils/100 WBC (Bld) 2.8 % Normal 0.9-7.0 [facility] Comment on above: Performed By: #### T SH, FT3 #### [facility] [address] [place] [address] Dr. Cole Echeverria Erythrocyte distribution width (RBC) [Ratio] 14.5 % Normal 11.0-15.0 [facility] Comment on above: Performed By: #### T SH, FT3 #### [facility] [address] [place] [address] Dr. Cole Echeverria Hematocrit (Bld) [Volume fraction] 41.4 % Critically low 42.0-54.0 [facility] Comment on above: Performed By: #### T SH, FT3 #### [facility] [address] [place] [address] Dr. Cole Echeverria Hemoglobin (Bld) [Mass/Vol] 13.2 g/dL Critically low 14.0-18.0 [facility] Comment on above: Performed By: #### T SH, FT3 #### [facility] [address] [place] [address] Dr. Cole Echeverria IG # 0.05 10e3/ul Critically high 0.00-0.03 [facility] Comment on above: Performed By: #### T SH, FT3 #### [facility] [address] [place] [address] Dr. Cole Echeverria IG % 0.4 % Normal 0.0-0.5 [facility] Comment on above: Performed By: #### T SH, FT3 #### [facility] [address] [place] [address] Dr. Cole Echeverria LYMPH # 1.8 103/ul Normal 1.2-3.8 [facility] Comment on above: Performed By: #### T SH, FT3 #### [facility] [address] [place] [address] Dr. Cole Echeverria Lymphocytes/100 WBC (Bld) 14.7 % Critically low 20.5-60.0 [facility] Comment on above: Performed By: #### T SH, FT3 #### [facility] [address] [place] [address] Dr. Cole Echeverria MANUAL DIFF REQ NO Normal [facility] Comment on above: Performed By: #### T SH, FT3 #### [facility] [address] [place] [address] Dr. Cole Echeverria MCH (RBC) [Entitic mass] 29.8 pg Normal 25.9-34.0 [facility] Comment on above: Performed By: #### T SH, FT3 #### [facility] [address] [place] [address] Dr. Cole Echeverria MCHC (RBC) [Mass/Vol] 31.9 g/dL Normal 29.9-35.2 [facility] Comment on above: Performed By: #### T SH, FT3 #### [facility] [address] [place] [address] Dr. Cole Echeverria MCV (RBC) [Entitic vol] 93.5 fL Normal 80.0-94.0 [facility] Comment on above: Performed By: #### T SH, FT3 #### [facility] [address] [place] [address] Dr. Cole Echeverria MONO # 0.7 103/ul Normal 0.3-0.8 [facility] Comment on above: Performed By: #### T SH, FT3 #### [facility] [address] [place] [address] Dr. Cole Echeverria Monocytes/100 WBC (Bld) 6.1 % Normal 1.7-12.0 [facility] Comment on above: Performed By: #### T SH, FT3 #### [facility] [address] [place] [address] Dr. Cole Echeverria NEUT # 9.2 103/ul Critically high 1.4-6.5 [facility] Comment on above: Performed By: #### T SH, FT3 #### [facility] [address] [place] [address] Dr. Cole Echeverria Neutrophils/100 WBC (Bld) 75.8 % Critically high 43.0-75.0 [facility] Comment on above: Performed By: #### T SH, FT3 #### [facility] [address] [place] [address] Dr. Cole Echeverria Platelet mean volume (Bld) [Entitic vol] 10.2 fL Normal 9.5-13.5 [facility] Comment on above: Performed By: #### T SH, FT3 #### [facility] [address] [place] [address] Dr. Cole Echeverria PLT 185 103/ul Normal 150-450 [facility] Comment on above: Performed By: #### T SH, FT3 #### [facility] [address] [place] [address] [address] Cole Echeverria RBC 4.43 106/ul Critically low 4.70-6.10 [facility] Comment on above: Performed By: #### T SOPHIE, FT3 #### [facility] [address] [place] [address] Dr. Cole Echeverria WBC 12.1 103/ul Critically high 4.0-11.0 [facility] Comment on above: Performed By: #### T SOPHIE, FT3 #### [facility] [address] [place] [address] Dr. Cole Echeverria Covid-19 PCR (CVDTB)on 06-05 SARS-CoV-2 (COVID-19) RNA HALEIGH+probe Ql (Unsp spec) Not detected Normal NOT DETECTED [facility] Comment on above: Result Comment: When diagnostic [...] for this test is supported by the [employer] Administrator of Health and Human Service's declaration that [...] used). Performed By: #### C VDTBH #### [facility] [address] [place] [address] Dr. Cole Echeverria D-DIMERon 06-22-2022 D-DIMER 15.71 mg/L FEU Critically high <=0.59 [facility] Comment on above: Performed By: #### F T4, PSASC #### [facility] [address] [place] [address] Dr. Cole Echeverria D-DIMER COMMENTS SEE BELOW Normal [facility] Comment on above: Result Comment: Incr [...] Performed By: #### F T4, PSASC #### [facility] [address] [place] [address] Dr. Cole Echeverria PROF 14(COMP METB)on 022 Albumin [Mass/Vol] 2.9 g/dL Critically low 3.4-5.[address] [facility] Comment on above: Performed By: #### F T4, PSASC #### [facility] [address] [place] [address] Dr. Cole Echeverria Albumin/Globulin [Mass ratio] 0.7 {ratio} Normal [facility] Comment on above: Performed By: #### F T4, PSASC #### [facility] [address] [place] [address] Dr. Cole Echeverria ALP [Catalytic activity/Vol] 89 U/L Normal 46-116 [facility] Comment on above: Performed By: #### F T4, PSASC #### [facility] [address] [place] [address] Dr. Cole Echeverria ALT [Catalytic activity/Vol] 21 U/L Normal 16-63 [facility] Comment on above: Performed By: #### F T4, PSASC #### [facility] [address] [address] [address] Cole Echeverria Anion gap [Moles/Vol] 11.8 mmol/L Normal [facility] Comment on above: Performed By: #### F T4, PSASC #### [facility] [address] [address] [address] Cole Echeverria AST [Catalytic activity/Vol] 19 U/L Normal 15-37 [facility] Comment on above: Performed By: #### F T4, PSASC #### [facility] [address] [address] [address] Cole Echeverria Bilirubin [Mass/Vol] 0.8 mg/dL Normal 0.2-1.0 [facility] Comment on above: Performed By: #### F T4, PSASC #### [facility] [address] [address] [address] Cole Echeverria Calcium [Mass/Vol] 9.0 mg/dL Normal 8.5-10.1 [facility] Comment on above: Performed By: #### F T4, PSASC #### [facility] [address] [address] [address] Cole Echeverria Chloride [Moles/Vol] 101 mmol/L Normal 98-107 [facility] Comment on above: Performed By: #### F T4, PSASC #### [facility] [address] [address] [address] Cole Echeverria CO2 [Moles/Vol] 29.3 mmol/L Normal 21.0-32.0 [facility] Comment on above: Performed By: #### F T4, PSASC #### [facility] [address] [address] [address] Cole Echeverria Creatinine [Mass/Vol] 2.25 mg/dL Critically high 0.70-1.30 [facility] Comment on above: Performed By: #### F T4, PSASC #### [facility] [address] [address] [address] Cole Echeverria EGFR-AF FINNISH 35 mL/min/1.73m2 Critically low >=60 [facility] Comment on above: Performed By: #### F T4, PSASC #### [facility] [address] [address] [address] Cole Echeverria EGFR-NON AF FINNISH 29 mL/min/1.73m2 Critically low >=60 [facility] Comment on above: Performed By: #### F T4, PSASC #### [facility] [address] [address] [address] Cole Echeverria Globulin (S) [Mass/Vol] 4.3 g/dL Normal [facility] Comment on above: Performed By: #### F T4, PSASC #### [facility] [address] [address] [address] Cole Echeverria Glucose [Mass/Vol] 116 mg/dL Critically high 74-106 [facility] Comment on above: Performed By: #### F T4, PSASC #### [facility] [address] [address] [address] Cole Echeverria Potassium [Moles/Vol] 5.1 mmol/L Normal 3.5-5.1 [facility] Comment on above: Performed By: #### F T4, PSASC #### [facility] [address] [address] [address] Cole Echeverria Protein [Mass/Vol] 7.2 g/dL Normal 6.4-8.2 [facility] Comment on above: Performed By: #### F T4, PSASC #### [facility] [address] [address] [address] Cole Echeverria Sodium [Moles/Vol] 137 mmol/L Normal 136-145 [facility] Comment on above: Performed By: #### F T4, PSASC #### [facility] [address] [address] [address] Cole Echeverria Urea nitrogen [Mass/Vol] 49.0 mg/dL Critically high 7.0-18.0 [facility] Comment on above: Performed By: #### F T4, PSASC #### [facility] [address] [address] [address] Cole Echeverria Urea nitrogen/Creatinine [Mass ratio] 21.8 mg/mg Normal [facility] Comment on above: Performed By: #### F T4, PSASC #### [facility] [address] [place] [address] Dr. Cole Echeverria PROTIMEon 06-22-2022 INR Coag (PPP) [Relative time] 1.06 {INR} Normal [facility] Comment on above: Performed By: #### T SH, FT3 #### [facility] [address] [place] [address] Dr. Cole Echeverria INR GUIDELINES SEE BELOW Normal [facility] Comment on above: Result Comment: MÓNICA RED INR: 2.0 - 3.0 CONDITIONS NOT LISTED BELOW 2.5 - 3.5 FOR PROSTHETIC HEART VALVE REPLACEMENT 2.5 - 3.5 RECURRENT THROMBOSIS Performed By: #### T SH, FT3 #### [facility] [address] [place] [address] Dr. Cole Echeverria PT Coag (PPP) [Time] 11.4 s Normal 9.0-11.6 [facility] Comment on above: Performed By: #### T SH, FT3 #### [facility] [address] [place] [address] Dr. Cole Echeverria PTTon 06-22-2022 aPTT Coag (Bld) [Time] 33.9 s Normal 22.3-36.2 [facility] Comment on above: Performed By: #### T SH, FT3 #### [facility] [address] [place] [address] Dr. Cole Echeverria TROPONIN, HIGH SENSITIVITYon 06-22-2022 HSTROP 345.5 pg/mL Critically high 4.0-76.1 [facility] Comment on above: Result Comment: CUT- OFF POINTS HAVE BEEN ESTABLISHED BASED ON THE FOURTH UNIVERSAL DEFINITIONS OF MYOCARDIAL INFARCTION. THE UPPER REFERENCE LIMIT (URL) OF TROPONIN, DEFINED THE 99TH PERCENTILE OF cTnI DISTRIBUTION IN A REFERENCE POPULATION, HAS BEEN CONFIRMED THE DECISION THRESHOLD FOR OK DIAGNOSIS. Performed By: #### F T4, PSASC #### [facility] [address] [place] [address] Dr. Cole Echeverria US JUAREZ DOP LEG BILon 08-18-2 022 US JUAREZ DOP LEG LISA EXAMINATION: [...] LAYO DAVISON Date: 2022-06-22 19:37 Normal [facility] XR CHEST 1 Von 06-22-2022 XR CHEST 1 V ONE-VIEW CHEST RADIOGRAPH, 06/22/2022 4:32 PM EDT COMPARISON: None. CLINICAL HISTORY: SHORTNESS OF BREATH Findings and impression: 1. Borderline pulmonary venous hypertension/pulmonary vascular congestion. 2. Borderline heart size. 3. No acute osseous abnormality. Electronically authenticated by: Richard PATRICIA Date: 2022-06-22 17:48 Normal [facility] CBC AUTO DIFFon 04-05-2022 BASO # 0.0 103/ul Normal 0.0-0.1 [facility] Comment on above: Performed By: #### T SOPHIE, FT3 #### [facility] [address] [place] [address] Dr. Cole Echeverria Basophils/100 WBC (Bld) 0.4 % Normal 0.2-2.0 [facility] Comment on above: Performed By: #### T SOPHEI, FT3 #### [facility] [address] [address] [address] Cole Echeverria EO # 0.2 103/ul Normal 0.0-0.7 [facility] Comment on above: Performed By: #### T SOPHIE, FT3 #### [facility] [address] [address] [address] Cole Echeverria Eosinophils/100 WBC (Bld) 2.3 % Normal 0.9-7.0 [facility] Comment on above: Performed By: #### T SOPHIE, FT3 #### [facility] [address] [place] [address] Dr. Cole Echeverria Erythrocyte distribution width (RBC) [Ratio] 13.0 % Normal 11.0-15.0 [facility] Comment on above: Performed By: #### T SH, FT3 #### [facility] [address] [place] [address] Dr. Cole Echeverria Hematocrit (Bld) [Volume fraction] 45.7 % Normal 42.0-54.0 [facility] Comment on above: Performed By: #### T SH, FT3 #### [facility] [address] [place] [address] Dr. Cole Echeverria Hemoglobin (Bld) [Mass/Vol] 14.4 g/dL Normal 14.0-18.0 [facility] Comment on above: Performed By: #### T SH, FT3 #### [facility] [address] [place] [address] Dr. Cole Echeverria IG # 0.02 10e3/ul Normal 0.00-0.03 [facility] Comment on above: Performed By: #### T SH, FT3 #### [facility] [address] [place] [address] Dr. Cole Echeverria IG % 0.3 % Normal 0.0-0.5 [facility] Comment on above: Performed By: #### T SH, FT3 #### [facility] [address] [place] [address] Dr. Cole Echeverria LYMPH # 1.8 103/ul Normal 1.2-3.8 [facility] Comment on above: Performed By: #### T SH, FT3 #### [facility] [address] [place] [address] Dr. Cole Echeverria Lymphocytes/100 WBC (Bld) 22.6 % Normal 20.5-60.0 [facility] Comment on above: Performed By: #### T SH, FT3 #### [facility] [address] [place] [address] Dr. Cole Echeverria MANUAL DIFF REQ NO Normal [facility] Comment on above: Performed By: #### T SH, FT3 #### [facility] [address] [place] [address] Dr. Cole Echeverria MCH (RBC) [Entitic mass] 31.1 pg Normal 25.9-34.0 [facility] Comment on above: Performed By: #### T SH, FT3 #### [facility] [address] [place] [address] Dr. Cole Echeverria MCHC (RBC) [Mass/Vol] 31.5 g/dL Normal 29.9-35.2 [facility] Comment on above: Performed By: #### T SH, FT3 #### [facility] [address] [place] [address] Dr. Cole Echeverria MCV (RBC) [Entitic vol] 98.7 fL Critically high 80.0-94.0 [facility] Comment on above: Performed By: #### T SH, FT3 #### [facility] [address] [place] [address] Dr. Cole Echeverria MONO # 0.5 103/ul Normal 0.3-0.8 [facility] Comment on above: Performed By: #### T SH, FT3 #### [facility] [address] [place] [address] Dr. Cole Echeverria Monocytes/100 WBC (Bld) 5.7 % Normal 1.7-12.0 [facility] Comment on above: Performed By: #### T SH, FT3 #### [facility] [address] [place] [address] Dr. Cole Echeverria NEUT # 5.4 103/ul Normal 1.4-6.5 [facility] Comment on above: Performed By: #### T SH, FT3 #### [facility] [address] [place] [address] Dr. Cole Echeverria Neutrophils/100 WBC (Bld) 68.7 % Normal 43.0-75.0 [facility] Comment on above: Performed By: #### T SH, FT3 #### [facility] [address] [place] [address] Dr. Cole Echeverria Platelet mean volume (Bld) [Entitic vol] 11.2 fL Normal 9.5-13.5 [facility] Comment on above: Performed By: #### T SH, FT3 #### [facility] [address] [place] [address] Dr. Cole Echeverria PLT 242 103/ul Normal 150-450 [facility] Comment on above: Performed By: #### T SH, FT3 #### [facility] [address] [place] [address] Dr. Cole Echeverria RBC 4.63 106/ul Critically low 4.70-6.10 [facility] Comment on above: Performed By: #### T SH, FT3 #### [facility] [address] [place] [address] Dr. Cole Echeverria WBC 7.8 103/ul Normal 4.0-11.0 [facility] Comment on above: Performed By: #### T SH, FT3 #### [facility] [address] [place] [address] Dr. Cole Echeverria FREE T3on 04-05-2022 FREE T3 1.39 pg/mlL Critically low 2.18-3.98 [facility] Comment on above: Performed By: #### B MP, ALT, AST, TSH, FT3, LIPID #### [facility] [address] [place] [address] Dr. Cole Echeverria FREE T4on 04-05-2022 Free T4 [Mass/Vol] 1.47 ng/dL Critically high 0.76-1.46 [facility] Comment on above: Performed By: #### F T4, PSASC #### [facility] [address] [place] [address] Dr. Cole Echeverria GLYCOHEMOGLOBIN A1Con 2021 ADA RECOMMENDATION SEE BELOW Normal [facility] Comment on above: Result Comment: ADA RECOMMENDED LIMIT 4.0 - 6.0 ADA THERAPEUTIC TARGET < 7.0 ACTION SUGGESTED > 7.0 Performed By: #### T SH, FT3 #### [facility] [address] [place] [address] Dr. Cole Echeverria Glucose [Mass/Vol] 103 mg/dL Normal [facility] Comment on above: Performed By: #### T SH, FT3 #### [facility] [address] [address] [address] Cole Echeverria HbA1c (Bld) [Mass fraction] 5.2 % Normal 4.5-6.2 [facility] Comment on above: Performed By: #### T SH, FT3 #### [facility] [address] [address] [address] Cole Echeverria LIPID PROFILEon 04-05-2022 CHOL-HDL RATIO NORM SEE BELOW Normal [facility] Comment on above: Result Comment: 3.3 - 4.4 LOW RISK 4.4 - 7.1 AVERAGE RISK 7.1 - 11.0 MODERATE RISK >11.0 HIGH RISK Performed By: #### T SH, FT3 #### [facility] [address] [address] [address] Cole Echeverria Cholesterol [Mass/Vol] 251 mg/dL Critically high <=200 [facility] Comment on above: Performed By: #### T SH, FT3 #### [facility] [address] [address] [address] Cole Echeverria Cholesterol in HDL [Mass/Vol] 36 mg/dL Critically low 40-60 [facility] Comment on above: Performed By: #### T SH, FT3 #### [facility] [address] [address] [address] Cole Echeverria Cholesterol in LDL [Mass/Vol] 189.8 mg/dL Normal [facility] Comment on above: Performed By: #### T SH, FT3 #### [facility] [address] [address] [address] Cole Echeverria Cholesterol.total/Ch olesterol in HDL [Mass ratio] 7.0 {ratio} Normal [facility] Comment on above: Performed By: #### T SH, FT3 #### [facility] [address] [address] [address] Cole Echeverria HDL NORMAL > or = 60 mg/dl - LO W CARDIOVASCULAR RISK <40 mg/dl - HIGH CARDIOVASCULAR RISK Normal [facility] Comment on above: Performed By: #### T SH, FT3 #### [facility] [address] [place] [address] Dr. Cole Echeverria LDL CALC NORMAL SEE BELOW Normal [facility] Comment on above: Result Comment: <100 mg/dl OPTIMAL 100 - 129 mg/dl NEAR OR ABOVE OPTIMAL 130 - 159 mg/dl BORDERLINE HIGH 160 - 189 mg/dl HIGH >190 mg/dl VERY HIGH Performed By: #### T SH, FT3 #### [facility] [address] [place] [address] Dr. Cole Echeverria Triglyceride [Mass/Vol] 126 mg/dL Normal <=150 [facility] Comment on above: Performed By: #### T SH, FT3 #### [facility] [address] [place] [address] Dr. Cole Echeverria VLDL CALC 25.2 mg/dL Normal [facility] Comment on above: Performed By: #### T SH, FT3 #### [facility] [address] [place] [address] Dr. Cole Echeverria PROF CHEM 8 (BAS METB)on Anion gap [Moles/Vol] 11.8 mmol/L Normal [facility] Comment on above: Performed By: #### B MP, ALT, AST, TSH, FT3, LIPID #### [facility] [address] [place] [address] Dr. Cole Echeverria Calcium [Mass/Vol] 8.9 mg/dL Normal 8.5-10.1 [facility] Comment on above: Performed By: #### B MP, ALT, AST, TSH, FT3, LIPID #### [facility] [address] [place] [address] Dr. Cole Echeverria Chloride [Moles/Vol] 104 mmol/L Normal 98-107 [facility] Comment on above: Performed By: #### B MP, ALT, AST, TSH, FT3, LIPID #### [facility] [address] [place] [address] Dr. Cole Echeverria CO2 [Moles/Vol] 29.9 mmol/L Normal 21.0-32.0 [facility] Comment on above: Performed By: #### B MP, ALT, AST, TSH, FT3, LIPID #### [facility] [address] [address] [address] Cole Echeverria Creatinine [Mass/Vol] 1.35 mg/dL Critically high 0.70-1.30 [facility] Comment on above: Performed By: #### B MP, ALT, AST, TSH, FT3, LIPID #### [facility] [address] [place] [address] Dr. Cole Echeverria EGFR-AF FINNISH >60 Normal >=60 [facility] Comment on above: Performed By: #### B MP, ALT, AST, TSH, FT3, LIPID #### [facility] [address] [place] [address] Dr. Cole Echeverria EGFR-NON AF FINNISH 52 mL/min/1.73m2 Critically low >=60 [facility] Comment on above: Performed By: #### B MP, ALT, AST, TSH, FT3, LIPID #### [facility] [address] [place] [address] Dr. Cole Echeverria Glucose [Mass/Vol] 91 mg/dL Normal 74-106 [facility] Comment on above: Performed By: #### B MP, ALT, AST, TSH, FT3, LIPID #### [facility] [address] [place] [address] Dr. Cole Echeverria Potassium [Moles/Vol] 4.7 mmol/L Normal 3.5-5.1 [facility] Comment on above: Performed By: #### B MP, ALT, AST, TSH, FT3, LIPID #### [facility] [address] [place] [address] Dr. Cole Echeverria Sodium [Moles/Vol] 141 mmol/L Normal 136-145 [facility] Comment on above: Performed By: #### B MP, ALT, AST, TSH, FT3, LIPID #### [facility] [address] [place] [address] Dr. Cole Echeverria Urea nitrogen [Mass/Vol] 35.0 mg/dL Critically high 7.0-18.0 [facility] Comment on above: Performed By: #### B MP, ALT, AST, TSH, FT3, LIPID #### [facility] [address] [place] [address] Dr. Cole Echeverria Urea nitrogen/Creatinine [Mass ratio] 25.9 mg/mg Normal [facility] Comment on above: Performed By: #### B MP, ALT, AST, TSH, FT3, LIPID #### [facility] [address] [place] [address] Dr. Cole Echeverria SGOTon 04-05-2022 AST [Catalytic activity/Vol] 31 U/L Normal 15-37 [facility] Comment on above: Performed By: #### T SH, FT3 #### [facility] [address] [place] [address] Dr. Cole Echeverria SGPTon 04-05-2022 ALT [Catalytic activity/Vol] 26 U/L Normal 16-63 [facility] Comment on above: Performed By: #### B MP, ALT, AST, TSH, FT3, LIPID #### [facility] [address] [place] [address] Dr. Cole Echeverria TSHon 04-05-2022 TSH 0.944 uIU/mL Normal 0.358-3.740 [facility] Comment on above: Performed By: #### B MP, ALT, AST, TSH, FT3, LIPID #### [facility] [address] [place] [address] Dr. Cole Echeverria TSH RANGE SEE BELOW Normal [facility] Comment on above: Result Comment: <0.3 4 UIU/ml HYPERTHYROID 0.34-5.60 UIU/ml EUTHYROID >5.60 UIU/ml HYPOTHYROID Performed By: #### B MP, ALT, AST, TSH, FT3, LIPID #### [facility] [address] [place] [address] Dr. Cole Echeverria US SCROTUMon 02-27-2022 US [...] by: ANETTE GAMBOA Date: 2022-02-27 08:15 Normal [facility] Vital Signs Date Time Vital Sign Value Performing Clinician Facility 07-21-2025 14:22-0400 Body height 180.34 cm Jorge Camejo MD Work Phone: [facility] 07-21-2025 14:22-0400 Body mass index (BMI) [Ratio] 54.1 kg/m2 Jorge Camejo MD Work Phone: [facility] 07-21-2025 14:22-0400 Body temperature 97.3 [degF] Jorge Camejo MD Work Phone: [facility] 07-21-2025 14:22-0400 Body weight 175.99 kg Jorge Camejo MD Work Phone: [facility] 07-21-2025 14:22-0400 Diastolic blood pressure 66 mm[Hg] Jorge Camejo MD Work Phone: [facility] 07-21-2025 14:22-0400 Heart rate 103 /min Jorge Camejo MD Work Phone: [facility] 07-21-2025 14:22-0400 Respiratory rate 16 /min Jorge Camejo MD Work Phone: [facility] 07-21-2025 14:22-0400 SaO2% (BldA) [Mass fraction] 96 % Jorge Camejo MD Work Phone: [facility] 07-21-2025 14:22-0400 Systolic blood pressure 130 mm[Hg] Jorge Camejo MD Work Phone: [facility] 06-04-2025 14:31-0400 Diastolic blood pressure 80 mm[Hg] Jorge Camejo MD Work Phone: [facility] 06-04-2025 14:31-0400 Systolic blood pressure 130 mm[Hg] Jorge Camejo MD Work Phone: [facility] 06-04-2025 14:00-0400 Body height 180.34 cm Jorge Camejo MD Work Phone: [facility] 06-04-2025 14:00-0400 Body mass index (BMI) [Ratio] 53.8 kg/m2 Jorge Camejo MD Work Phone: [facility] 06-04-2025 14:00-0400 Body weight 175.08 kg Jorge Camejo MD Work Phone: [facility] 06-04-2025 14:00-0400 Heart rate 80 /min Jorge Camejo MD Work Phone: [facility] 06-04-2025 14:00-0400 SaO2% (BldA) [Mass fraction] 100 % Jorge Camejo MD Work Phone: [facility] 04-13-2025 14:11-0400 Body height 180.3 cm Jorge Camejo MD Work Phone: [facility] 04-13-2025 14:11-0400 Body mass index (BMI) [Ratio] 53.98 kg/m2 Jorge Camejo MD Work Phone: [facility] 04-13-2025 14:11-0400 Body temperature 97.5 [degF] Jorge Camejo MD Work Phone: [facility] 04-13-2025 14:11-0400 Body weight 175.54 kg Jorge Camejo MD Work Phone: [facility] 04-13-2025 14:11-0400 Diastolic blood pressure 62 mm[Hg] Jorge Camejo MD Work Phone: [facility] 04-13-2025 14:11-0400 Heart rate 88 /min Jorge Camejo MD Work Phone: [facility] 04-13-2025 14:11-0400 Respiratory rate 20 /min Jorge Camejo MD Work Phone: [facility] 04-13-2025 14:11-0400 SaO2% (BldA) [Mass fraction] 97 % Jorge Camejo MD Work Phone: [facility] 04-13-2025 14:11-0400 Systolic blood pressure 146 mm[Hg] Jorge Camejo MD Work Phone: [facility] 12-11-2024 14:04-0500 Body height 180.3 cm Jorge Camejo MD Work Phone: [facility] 12-11-2024 14:04-0500 Body mass index (BMI) [Ratio] 53.98 kg/m2 Jorge Camejo MD Work Phone: [facility] 12-11-2024 14:04-0500 Body temperature 97.11 [degF] Jorge Camejo MD Work Phone: [facility] 12-11-2024 14:04-0500 Body weight 175.54 kg Jorge Camejo MD Work Phone: [facility] 12-11-2024 14:04-0500 Diastolic blood pressure 56 mm[Hg] Jorge Camejo MD Work Phone: [facility] 12-11-2024 14:04-0500 Heart rate 86 /min Jorge Camejo MD Work Phone: [facility] 12-11-2024 14:04-0500 Respiratory rate 18 /min Jorge Camejo MD Work Phone: [facility] 12-11-2024 14:04-0500 SaO2% (BldA) [Mass fraction] 97 % Jorge Camejo MD Work Phone: [facility] 12-11-2024 14:04-0500 Systolic blood pressure 134 mm[Hg] Jorge Camejo MD Work Phone: [facility] 08-27-2024 13:43-0400 Body height 180.3 cm Jorge Camejo MD Work Phone: [facility] 08-27-2024 13:43-0400 Body mass index (BMI) [Ratio] 52.72 kg/m2 Jorge Camejo MD Work Phone: [facility] 08-27-2024 13:43-0400 Body temperature 97.3 [degF] Jorge Camejo MD Work Phone: [facility] 08-27-2024 13:43-0400 Body weight 171.46 kg Jorge Camejo MD Work Phone: [facility] 08-27-2024 13:43-0400 Diastolic blood pressure 64 mm[Hg] Jorge Camejo MD Work Phone: [facility] 08-27-2024 13:43-0400 Heart rate 99 /min Jorge Camejo MD Work Phone: [facility] 08-27-2024 13:43-0400 Respiratory rate 20 /min Jorge Camejo MD Work Phone: [facility] 08-27-2024 13:43-0400 SaO2% (BldA) [Mass fraction] 98 % Jorge Camejo MD Work Phone: [facility] 08-27-2024 13:43-0400 Systolic blood pressure 130 mm[Hg] Jorge Camejo MD Work Phone: [facility] 01-17-2024 11:49-0400 Body height 180.3 cm Gumaro Malhotra DO Work Phone: [facility] 01-17-2024 11:49-0400 Body mass index (BMI) [Ratio] 51.33 kg/m2 Gumaro Malhotra DO Work Phone: [facility] 01-17-2024 11:49-0400 Body weight 166.92 kg Gumaro Malhotra DO Work Phone: [facility] 01-17-2024 11:49-0400 Diastolic blood pressure 86 mm[Hg] Gumaro Malhotra DO Work Phone: [facility] 01-17-2024 11:49-0400 Heart rate 68 /min Gumaro Malhotra DO Work Phone: [facility] 01-17-2024 11:49-0400 Systolic blood pressure 140 mm[Hg] Gumaro Malhotra DO Work Phone: [facility] 12-06-2023 14:00-0500 Body height 180.34 cm Markusandre Sanzharitha Other [employer] Other 12-06-2023 14:00-0500 Body mass index (BMI) [Ratio] 51.52 kg/m2 Oscar Sanzharitha Other [employer] Other 12-06-2023 14:00-0500 Body temperature 97.7 [degF] Oscar Sanzharitha Other [employer] Other 12-06-2023 14:00-0500 Body weight 167.56 kg Oscar Sanzharitha Other [employer] Other 12-06-2023 14:00-0500 Diastolic blood pressure 81 mm[Hg] Oscar Selena Other [employer] Other 12-06-2023 14:00-0500 Respiratory rate 20 /min Oscar Selena Other [employer] Other 12-06-2023 14:00-0500 SaO2% (BldA) [Mass fraction] 95 % Oscar Walters Other [facility] Other 12-06-2023 14:00-0500 Systolic blood pressure 136 mm[Hg] Oscar Walters Other [employer] Other 01-04-2023 11:33-0500 Body height 180.34 cm Jorge Masters Naderer Work Phone: [facility] 250 DO Work Phone: 01-04-2023 11:33-0500 Body mass index (BMI) [Ratio] 49.51 kg/m2 Jorge Masters Naderer Work Phone: [facility] DO Work Phone: 01-04-2023 11:33-0500 Body surface area Derived from formula 2.69 m2 Jorge Masters Naderer Work Phone: [facility] 250 DO Work Phone: 01-04-2023 11:33-0500 Body weight 161.03 kg Jorge Masters Naderer Work Phone: [facility] 250 DO Work Phone: 01-04-2023 11:33-0500 Diastolic blood pressure 70 mm[Hg] Jorge Guerrero Naderer Work Phone: [facility] DO Work Phone: 01-04-2023 11:33-0500 Heart rate 64 /min Jorge Masters Naderer Work Phone: [facility] DO Work Phone: 01-04-2023 11:33-0500 Systolic blood pressure 136 mm[Hg] Jorge Masters Naderer Work Phone: -[place] [facility] 250 DO Work Phone: 10-12-2022 14:00-0500 Body height 180.34 cm Oscar Walters Other [facility] Other 10-12-2022 14:00-0500 Body mass index (BMI) [Ratio] 49.67 kg/m2 Oscar Walters Other [facility] Other 10-12-2022 14:00-0500 Body temperature 96.3 [degF] Oscar Walters Other [facility] Other 10-12-2022 14:00-0500 Body weight 161.57 kg Oscar Walters Other [facility] Other 10-12-2022 14:00-0500 Diastolic blood pressure 73 mm[Hg] Oscar Walters Other [facility] Other 10-12-2022 14:00-0500 Respiratory rate 20 /min Oscar Walters Other [facility] Other 10-12-2022 14:00-0500 SaO2% (BldA) [Mass fraction] 95 % Oscar Walters Other [facility] Other 10-12-2022 14:00-0500 Systolic blood pressure 126 mm[Hg] Oscar Walters Other [facility] Other 08-31-2022 17:40-0400 Body height 180.34 cm Oscar Walters Other [employer] Other 08-31-2022 17:40-0400 Body mass index (BMI) [Ratio] 48.98 kg/m2 Oscar Walters Other [employer] Other 08-31-2022 17:40-0400 Body temperature 96.4 [degF] Oscar Walters Other [employer] Other 08-31-2022 17:40-0400 Body weight 159.3 kg Oscar Walters Other [employer] Other 08-31-2022 17:40-0400 Diastolic blood pressure 82 mm[Hg] Oscar Walters Other [employer] Other 08-31-2022 17:40-0400 Respiratory rate 20 /min Oscar Walters Other [employer] Other 08-31-2022 17:40-0400 SaO2% (BldA) [Mass fraction] 97 % Oscar Walters Other [employer] Other 08-31-2022 17:40-0400 Systolic blood pressure 144 mm[Hg] Oscar Walters Other [employer] Other 07-12-2022 11:36-0400 Body height 180.34 cm Jorge Masters [employer] Work Phone: [facility] 250 DO Work Phone: 07-12-2022 11:36-0400 Body mass index (BMI) [Ratio] 51.05 kg/m2 Jorge Masters [employer] Work Phone: [facility] 250 DO Work Phone: 07-12-2022 11:36-0400 Body surface area Derived from formula 2.73 m2 Jorge Masters Bombfellerer Work Phone: [facility] [place] [facility] 250 DO Work Phone: 07-12-2022 11:36-0400 Body weight 166.02 kg Jorge Masters Rojaserer Work Phone: [facility] 250 DO Work Phone: 07-12-2022 11:36-0400 Diastolic blood pressure 70 mm[Hg] Jorge Xieerer Work Phone: [facility] 250 DO Work Phone: 07-12-2022 11:36-0400 Heart rate 100 /min Jorge Xieerer Work Phone: [facility] 250 DO Work Phone: 07-12-2022 11:36-0400 Systolic blood pressure 110 mm[Hg] Jorge Masters Rojaserer Work Phone: [facility] 250 DO Work Phone: 06-22-2022 00:00-0400 65 1 Jorge Xieerer Work Phone: [facility] 250 DO Work Phone: Comment on above: [id number] Encounters Encounter Date Encounter Type Care Provider Facility Start: 07-28-2025 End: 07-28-2025 Beverly Palmer DO Work Phone: [facility] Start: 07-28-2025 End: 07-28-2025 Beverly BBspacequeenie Rodriguez Stepemilee DO [facility] Start: 07-21-2025 End: 07-21-2025 ambulatory Jorge Camejo MD Work Phone: [facility] Work Phone: Start: 07-21-2025 End: 07-21-2025 Patient encounter procedure Jorge Camejo MD -[facility] Work Phone: Start: 06-04-2025 End: 06-04-2025 ambulatory Jorge Camejo MD Work Phone: [facility] Work Phone: Start: 06-04-2025 End: 06-04-2025 Patient encounter procedure Oscar Walters MD -[facility] Work Phone: Start: 05-26-2025 End: 05-26-2025 Clinisync Result Encounter Generic External Data Provider [facility] External Department Unsolicited Start: 05-26-2025 End: 05-26-2025 Clinisync Result Encounter Generic External Data Provider [facility] External Department Unsolicited Start: 05-25-2025 End: 05-25-2025 Refill Jorge Camejo MD Work Phone: [facility] Comment on above: Other spondylosis wi th radiculopathy, lumbosacral region; Lumbosacral spondylosis without myelopathy Start: 04-16-2025 End: 04-16-2025 Clinisync Result Encounter Jorge Camejo MD Work Phone: [facility] External Department Unsolicited Start: 04-16-2025 End: 04-16-2025 Clinisync Result Encounter Jorge Camejo MD Work Phone: [facility] External Department Unsolicited Start: 04-13-2025 End: 04-13-2025 Bamboo flowsheet Jorge Camejo MD Work Phone: [facility] Start: 04-13-2025 End: 04-13-2025 Bamboo flowsheet Jorge Camejo MD Work Phone: [facility] Start: 04-13-2025 End: 04-13-2025 Patient encounter procedure Jorge Camejo MD Work Phone: [facility] Work Phone: Start: 04-13-2025 End: 04-13-2025 Postop follow up visit related to original px Jorge Camejo MD Work Phone: [facility] Comment on above: Medicare annual well ness visit, subsequent (Primary Dx); Class 3 severe obesity due to excess calories with serious comorbidity and body mass index (BMI) of 50.0 to 59.9 in adult Start: 04-13-2025 End: 04-13-2025 ambulatory JORGE CAMEJO Not Available Start: 12-31-2024 End: 12-31-2024 Refill Jorge Camejo MD Work Phone: [facility] Comment on above: Other spondylosis wi th radiculopathy, lumbosacral region; Lumbosacral spondylosis without myelopathy; Acquired hypothyroidism (CMS/HCC) Start: 12-11-2024 End: 12-11-2024 Julio [employer] H2marcie Camejo MD Work Phone: [facility] Start: 12-11-2024 End: 12-11-2024 Julio Cesar[employer] H2marcie Camejo MD Work Phone: [facility] Start: 12-11-2024 End: 12-11-2024 Office outpatient visit 25 minutes Jorge Camejo MD Work Phone: [facility] Comment on above: Essential hypertensi on, benign (CMS/HCC) (Primary Dx); Chronic diastolic heart failure (CMS/HCC); Lumbosacral spondylosis with radiculopathy; Bilateral primary osteoarthritis of knee; HEENA (obstructive sleep apnea); Class 3 severe obesity due to excess calories with serious comorbidity and body mass index (BMI) of 50.0 to 59.9 in adult (CMS/HCC); CKD stage 3a, GFR 45-59 ml/min (CMS/HCC); Dyslipidemia (CMS/HCC); Encounter for long-term (current) use of medications; Prediabetes; Screening PSA (prostate specific antigen); Acquired hypothyroidism (CMS/HCC) Start: 12-11-2024 End: 12-11-2024 ambulatory JORGE CAMEJO Not Available Start: 12-09-2024 End: 12-09-2024 Beverly Palmer DO Work Phone: [facility] Start: 12-09-2024 End: 12-09-2024 Bamboo flowsheet Jr. Gaona Michael Palmer DO Work Phone: [facility] Start: 12-09-2024 End: 12-09-2024 Office outpatient visit 15 minutes JrBryant Gaona Michael Palmer DO Work Phone: [facility] Comment on above: Primary osteoarthrit is of left knee (Primary Dx); Pain and swelling of left knee; Bilateral primary osteoarthritis of knee Start: 12-09-2024 End: 12-09-2024 ambulatory MARIE SALCEDO Not Available Start: 08-27-2024 End: 08-27-2024 Bamboo flowsheet Jorge Camejo MD Work Phone: [facility] Start: 08-27-2024 End: 08-27-2024 Bamboo flowsheet Jorge Camejo MD Work Phone: [facility] Start: 08-27-2024 End: 08-27-2024 Office outpatient visit 25 minutes Jorge Camejo MD Work Phone: [facility] Comment on above: Essential hypertensi on, benign (CMS/HCC) (Primary Dx); Chronic diastolic heart failure (CMS/HCC); Lumbosacral spondylosis with radiculopathy; Bilateral primary osteoarthritis of knee; HEENA (obstructive sleep apnea); CKD stage 3a, GFR 45-59 ml/min (CMS/HCC) Start: 08-27-2024 End: 08-27-2024 ambulatory JORGE CAMEJO Not Available Start: 08-14-2024 End: 08-15-2024 Refill Jorge Camejo MD Work Phone: [facility] Comment on above: Other spondylosis wi th radiculopathy, lumbosacral region; Lumbosacral spondylosis without myelopathy Start: 06-02-2024 End: 06-02-2024 ambulatory MARIE SALCEDO Not Available Start: 05-27-2024 End: 05-27-2024 ambulatory JORGE CAMEJO Not Available Start: 01-17-2024 End: 01-17-2024 ambulatory [facility] Amb[facility] Start: 01-17-2024 End: 01-17-2024 Office outpatient visit 15 minutes Gumaro Malhotra DO Work Phone: [facility] Comment on above: Deep vein thrombosis (DVT) of distal vein of lower extremity, unspecified chronicity, unspecified laterality ([facility]); Pulmonary embolism, unspecified chronicity, unspecified pulmonary embolism type, unspecified whether acute cor pulmonale present ([facility]); Essential hypertension; BMI 50.0-59.9, adult ([facility]); Chronic kidney disease, unspecified CKD stage; Former smoker Start: 12-12-2023 Chart abstracting Jr. Marie Palmer DO Work Phone: [facility] Start: 12-12-2023 End: 12-12-2023 Office outpatient visit 15 minutes Jr. Marie Palmer DO Work Phone: [facility] Comment on above: Acquired trigger fin yesica of right little finger (Primary Dx) Start: 12-06-2023 End: 12-06-2023 ambulatory Oscar Walters Other [employer] Other Start: 12-06-2023 Office outpatient vi sit 15 minutes Oscar Walters [facility] Start: 05-03-2023 ambulatory JAVIER LAKSHMIPATHY . Facility:[facility]1 Start: 01-25-2023 End: 01-26-[address] JORGE CAMEJO Facility:[facility] Start: 01-04-2023 Office outpatient vi sit 25 minutes Jorge Camejo Work Phone: [facility] 250 DO Work Phone: Start: 01-04-2023 ambulatory Gumaro Fosterdon Facilit y: Start: 12-07-2022 End: 12-08-[address] JORGE CAMEJO Facility:[facility] Start: 12-04-2022 End: 12-04-2022 ambulatory Oscar Walters Other [employer] Other Start: 12-04-2022 Telephone encounter Essandre Walters [facility] Start: 10-12-2022 End: 10-12-2022 ambulatory Oscar Walters Other [employer] Other Start: 10-12-2022 Office outpatient vi sit 25 minutes Essam Elharitha [facility] Start: 10-03-2022 End: 10-04-[address] JORGE CAMEJO Facility:[facility] Start: 09-14-2022 End: 09-15-[address] JORGE CAMEJO Facility:[facility] Start: 09-04-2022 End: 09-04-2022 ambulatory Oscar Walters Other [employer] Other Start: 09-04-2022 Telephone encounter Oscar Walters [facility] Start: 08-31-2022 End: 08-31-2022 ambulatory Oscar Walters Other [employer] Other Start: 08-31-2022 Office outpatient vi sit 25 minutes Oscar Walters [facility] Start: 07-12-2022 End: 07-13-[address] GUMARO MALHOTRA Facility:[facility]1 Start: 07-12-2022 Office outpatient vi sit 40 minutes Jorge Camejo Work Phone: [facility] 250 DO Work Phone: Start: 07-12-2022 ambulatory Gumaro Feliciano y:[id number] Start: 06-24-2022 ambulatory Gumaro Malhotra Facilit y:[id number] Start: 06-23-2022 ambulatory Gumaro Feliciano y:[facility] Start: 06-23-2022 ambulatory Gumaro Feliciano y:[id number] Start: 06-23-[address] Jorge Camejo Facility:[id number] Start: 06-23-2022 End: 06-24-2022 Evaluation and management of inpatient Patel Ugarte Facility:[facility] Start: 06-22-2022 End: 06-22-2022 ambulatory [...] 07-25-2018 End: 07-26-2018 Patient encounter DEFAULT PHYSICIAN Facility:[facility] Procedures Date Procedure Procedure Detail Performing Clinician Start: 05-26-2025 [facility] CBC WITH PLATEL ET NO DIFFERENTIAL Generic External Data Provider Start: 04-16-2025 ALL CBC WITH AUTO DIFF Jorge Camejo MD Work Phone: Start: 12-09-2024 Arthrocentesis aspir &/inj major jt/bursa w/o us Jr. Marie Rodriguez Stepanic DO Work Phone: Start: 12-12-2023 Injection 1 tendon sheath/ligament aponeurosis Jr. Marie Rodriguez Stepanic DO Work Phone: Start: 04-05-[address] JORGE HILTON Comment on above: Performed By: #### F T4, PSASC #### [facility] [address] [place] [address] Dr. Cole Echeverria Arthroscopy of knee Jorge hilton Work Phone: Colonoscopy Jorge Camejo Work Phone: Removal of thrombus Jorge hilton Work Phone: Plan of Treatment Date Care Activity Detail Author Start: 04-13-2026 Medicare Annual Well ness (AWV) Medicare Annual Wellness (AWV) [facility] Start: 08-27-2025 Medicare Annual Well ness (AWV) Medicare Annual Wellness (AWV) [facility] Start: 07-28-2025 End: 07-28-2025 Patient encounter procedure 07/28/2025 11:15 AM EDT Office Visit [facility] [place] [phone] Jr. Marie Palmer, DO [address] [facility] [address] [place] [address] Arrived [facility] Comment on above: Arrived Start: 07-21-2025 End: 07-21-2025 Patient encounter procedure 07/21/2025 2:00 PM EDT Office Visit [facility] [address] [place] [phone] Jorge Camejo MD [address] [place] [phone] [facility] Start: 07-14-2025 End: 07-14-2025 Patient encounter procedure 07/14/2025 2:00 PM EDT Office Visit [facility] [address] [place] [phone] Jorge Camejo MD [address] [place] [phone] [facility] Start: 07-06-2025 Influenza vaccination Influenza Vacc ine (#1) [facility] Start: 06-16-2025 End: 06-16-2025 Patient encounter procedure 06/16/2025 11:30 AM EDT Office Visit [facility] [address] [place] [facility] [phone] Jr. Marie Palmer, DO [address] [facility] [address] [place] [address] [facility] Start: 04-13-2025 End: 04-13-2025 Patient encounter procedure [facility] Comment on above: Arrived Start: 12-11-2024 End: 12-11-2025 Basic metabolic 1998 panel - Serum or Plasma Basic metabolic panel Lab Routine CKD stage 3a, GFR 45-59 ml/min ([facility]) Expected: 12/11/2024 (Approximate), Expires: 12/11/2025 [facility] Comment on above: Expected: 12/11/2024 (Approximate), Expires: 12/11/2025 Start: 12-11-2024 End: 12-11-2025 CBC W Auto Differential panel - Blood CBC and differential Lab Routine Encounter for long-term (current) use of medications Expected: 12/11/2024 (Approximate), Expires: 12/11/2025 [facility] Comment on above: Expected: 12/11/2024 (Approximate), Expires: 12/11/2025 Start: 12-11-2024 End: 12-11-2025 Hemoglobin A1c/Hemoglobin.total in Blood Hemoglobin A1c Lab Routine Prediabetes Expected: 12/11/2024 (Approximate), Expires: 12/11/2025 [facility] Work Phone: Comment on above: Expected: 12/11/2024 (Approximate), Expires: 12/11/2025 Start: 12-11-2024 End: 12-11-2025 Hepatic function 2000 panel - Serum or Plasma Hepatic function panel Lab Routine Encounter for long-term (current) use of medications Expected: 12/11/2024 (Approximate), Expires: 12/11/2025 [facility] Comment on above: Expected: 12/11/2024 (Approximate), Expires: 12/11/2025 Start: 12-11-2024 End: 12-11-2025 Lipid 1996 panel - Serum or Plasma Lipid panel Lab Routine Dyslipidemia (CMS/HCC) Expected: 12/11/2024 (Approximate), Expires: 12/11/2025 [facility] Comment on above: Expected: 12/11/2024 (Approximate), Expires: 12/11/2025 Start: 12-11-2024 End: 12-11-2024 Patient encounter procedure [facility] Comment on above: Arrived Start: 12-11-2024 End: 12-11-2025 Prostate specific Ag [Mass/volume] in Serum or Plasma PSA Lab Routine Screening PSA (prostate specific antigen) Expected: 12/11/2024 (Approximate), Expires: 12/11/2025 [facility] Comment on above: Expected: 12/11/2024 (Approximate), Expires: 12/11/2025 Start: 12-11-2024 End: 12-11-2025 Thyrotropin [Units/volume] in Serum or Plasma TSH Lab Routine Chronic diastolic heart failure ([facility]) Expected: 12/11/2024 (Approximate), Expires: 12/11/2025 [facility] Comment on above: Expected: 12/11/2024 (Approximate), Expires: 12/11/2025 Start: 12-11-2024 End: 12-11-2025 Thyroxine (T4) free [Mass/volume] in Serum or Plasma T4, free Lab Routine Chronic diastolic heart failure ([facility]) Expected: 12/11/2024 (Approximate), Expires: 12/11/2025 [facility] Comment on above: Expected: 12/11/2024 (Approximate), Expires: 12/11/2025 Start: 12-09-2024 End: 12-09-2024 Patient encounter procedure 12/09/2024 11:00 AM EST Office Visit [facility] [address] [place] [address] Jr. Marie Palmer, DO [address] [facility] [address] [place] [address] Primary osteoarthritis of left knee (Primary Dx); Pain and swelling of left knee; Bilateral primary osteoarthritis of knee [facility] Comment on above: Primary osteoarthrit is of left knee (Primary Dx); Pain and swelling of left knee; Bilateral primary osteoarthritis of knee Start: 12-08-2024 End: 12-08-2024 Patient encounter procedure 12/08/2024 2:00 PM EST Office Visit [facility] [address] [place] [phone] Jr. Marie Palmer, DO [address] [facility] [address] [place] [address] [facility] Start: 11-26-2024 End: 11-26-2024 Patient encounter procedure 11/26/2024 1:30 PM EST Office Visit [facility] [address] [place] [phone] Jorge Camejo MD [address] [place] [phone] [facility] Start: 08-27-2024 End: 08-27-2024 Patient encounter procedure [facility] Comment on above: Arrived Start: 07-06-2024 Influenza vaccination Influenza Vacc ine (#1) [facility] Start: 02-25-2024 End: 02-25-2024 Patient encounter procedure 02/25/2024 1:00 PM EDT Office Visit [facility] [address] [place] [phone] Jorge Camejo MD [address] [place] [phone] [facility] Start: 01-17-2024 FUV, Provider: Gumaro Malhotra, Status: Pen, Time: 11:20 AM FUV, Provider: Gumaro Malhotra, Status: Pen, Time: 11:20 AM [place] [address] DO Work Phone: Start: 01-09-2024 End: 01-09-2024 Patient encounter procedure 01/09/2024 2:00 PM EST Office Visit [facility] [address] [place] [phone] Jr. Marie Palmer, DO [address] [facility] [address] [place] [address] [facility] Start: 12-12-2023 End: 12-12-2023 Patient encounter procedure 12/12/2023 2:00 PM EST Office Visit [facility] [address] [place] [phone] Jr. Marie Palmer, DO [address] [facility] [address] [place] [address] [facility] Start: 07-06-2023 COVID-19 Vaccine ( season) COVID-19 Vaccine ( season) [facility] Start: 01-11-2023 FUV, Provider: Gumaro Malhotra, Status: Pen, Time: 11:10 AM FUV, Provider: Gumaro Malhotra, Status: Pen, Time: 11:10 AM [facility] 250 DO Work Phone: Start: 08-05-2016 Pneumococcal Vaccine : 65+ Years (2 - PCV) Pneumococcal Vaccine: 65+ Years (2 - PCV) [facility] Start: 08-05-2016 Pneumococcal Vaccine : 65+ Years (2 of 2 - PCV) Pneumococcal Vaccine: 65+ Years (2 of 2 - PCV) [facility] Start: 1996 Zoster Vaccines (1 of 2) Zoste r Vaccines (1 of 2) [facility] Start: 1968 DTaP/Tdap/Td Vaccine s (1 - Tdap) DTaP/Tdap/Td Vaccines (1 - Tdap) [facility] Start: 1964 Diabetes mellitus screening Diabetes Screening [facility] Start: 1964 Hepatitis C screening Hepatitis C Sc [facility] Start: 1946 Lipid panel Lipid Panel [facility] Start: 1946 Medicare Annual Well ness (AWV) Medicare Annual Wellness (AWV) [facility] Start: 1946 Medicare Annual Well ness Visit Medicare Annual Wellness Visit (AWV) [facility] Start: 1946 Thyroid stimulating hormone measurement TSH Level [facility] Renal function 2000 panel - Serum or Plasma [facility] Immunizations Immunization Date Immunization Notes Care Provider Fa cility 10-15-2024 influenza virus vacc ine, unspecified formulation Jorge Camejo MD Work Phone: [facility] 09-13-2023 influenza virus vacc ine, unspecified formulation Jorge Camejo MD Work Phone: [facility] 10-01-2022 Fluad Quadrivalent 0 .5 ML Intramuscular Prefilled Syringe Jorge Camejo Work Phone: [facility] 250 DO Work Phone: 10-19-2021 Pfizer-BioNTech COVI D-19 Vacc 30 MCG/0.3ML Intramuscular Suspension Jorge Camejo Work Phone: [facility] 07-06-2021 influenza, seasonal, injectable Jorge Coatsr Work Phone: [facility] 250 DO Work Phone: Comment on above: Series: 01-11-2021 Moderna COVID-19 Vac cine 100 MCG/0.5ML Intramuscular Suspension Jorge Coatsr Work Phone: [facility] 250 DO Work Phone: 12-14-2020 Moderna COVID-19 Vac cine 100 MCG/0.5ML Intramuscular Suspension Jorge Coatsr Work Phone: [facility] 250 DO Work Phone: 08-05-2015 pneumococcal polysaccharide vaccine, 23 valent Jorge Camejo Work Phone: [facility] Payers Date Payer Category Payer Medicare (Managed Care) [facility] MEDICARE [id number] 2024 Medicare [id number] 2023 Private Health Insurance [employer] [id number] 2023 Unknown 2022 Self-pay 2011 Medicare [id number] 1959 Medicare [id number] 1959 Medicare [id number] 1959 Unknown [id number] 1946 Unknown [id number] 1946 Unknown [id number] 1946 Unknown [id number] 356 1945 Unknown [id number] 2.16840.1.221226.3.579.2. 356 1945 Unknown [id number] 2.16840.1.679054.3.579.2. 356 1945 Unknown [id number] 2.16.840.1.745862.3.579.2. 593 1946 Unknown [id number] 2.16840.1.095611.3.579.2. 593 1946 Unknown [id number] 2.16840.1.387063.3.579.2. 593 1946 Unknown [id number] 2.16.840.1.863166.3.579.2. 593 1946 Unknown [id number] 2.16.840.1.649302.3.579.2. 593 1946 Unknown [id number] 2.16.840.1.034694.3.579.2. 593 1946 Unknown [id number] 2.16.840.1.784111.3.579.2. 593 1946 Unknown [id number] 2.16.840.1.046164.3.579.2. 593 1946 Unknown [id number] 2.16.840.1.722172.3.579.2. 593 1946 Unknown [id number] 2.16.840.1.244151.3.579.2. 593 1946 Unknown [id number] 2.16.840.1.249398.3.579.2. 593 1946 Unknown [id number] 2.16.840.1.374933.3.579.2. 593 1946 Unknown [id number] 2.16.840.1.458584.3.579.2. 1244 1946 Unknown [id number] 2.16.840.1.516160.3.579.2. 1259 1946 Unknown [id number] 2.16.840.1.786856.3.579.2. 1259 1946 Unknown [id number] 2.16.840.1.275421.3.579.2. 1259 1946 Unknown [id number] 2.16.840.1.670229.3.579.2. 1259 1946 Unknown [id number] 2.16.840.1.210422.3.579.2. 1259 1946 Unknown [id number] 2.16.840.1.572808.3.579.2. 1259 Unknown [id number] 2.16.840.1.477517.3.579.2. 531 Social History Date Type Detail Facility Start: 11-19-2023 End: 11-20-2023 No alcohol use No alcohol use [facility] Start: 11-19-2023 End: 04-13-2025 Sex Assigned At [facility] Start: 11-20-2023 End: 06-12-2024 Tobacco smoking status [facility] Ex-smoker [facility] Start: 11-05-1964 End: 11-05-1989 History of tobacco use Current smoker [facility] Start: 11-05-1964 End: 11-05-1989 History of tobacco use Cigarette Smoker [facility] Start: 11-20-2023 End: 01-17-2024 Tobacco use and exposure Smokeless tobacco non-user [facility] Within the last year , have you been afraid of your partner or ex-partner? No [facility] Do you belong to any clubs or organizations such as islam groups, unions, fraEnvysion or athletic groups, or school groups? Yes [...] Only a little [facility] (I/We) worried [place] (my/our) food would run out before (I/we) got money to buy more. Never true [facility] Start: 1945 Sex Assigned At Not on file [facility] Start: 01-17-2024 Alcohol intake Lifetime non-drinker (finding) [facility] Work Phone: Start: 01-07-2024 End: 01-17-2024 Exposure to SARS-CoV-2 (event) Not sure [facility] Sex Male (finding) [facility] Start: 1945 Sex Assigned At Male F [facility] NEGATED: Highlighted row Denies Caffeine use Denies Caffeine use -[facility] DO Work Phone: Functional Status Date Assessment Result Facility 04-13-2025 Patient Health [facility] ionnaire 2 item (PHQ-2) [Reported] [facility] Clinical Notes 02-16-2022 to 06-04-2025 Note Date & Type Note Facility 06-04-2025 Evaluation note Diagnosis Onset Date Resolution Pulmonary embolism acute May 072024 1:58pm CHF (congestive heart failure) inactive June 04, 2025 1:58pm Chronic renal failure (CRF), stage 3b inactive June 04, 2025 1:58pm DVT (deep venous thrombosis) inactive June 04, 2025 1:58pm Hypertensive chronic kidney disease with stage 1 through stage 4 chronic ki inactive June 04, 2025 1:58pm Benign essential hypertension acute July 21, 2025 1:54pm Bilateral primary osteoarthritis of knee acute July 21, 2025 1:54pm Chronic diastolic heart failure acute July 21, 2025 1:54pm Lumbosacral spondylosis with radiculopathy acute July 1:54pm HEENA (obstructive sleep apnea) acute July 21, 2025 1:54pm [facility] Work Phone: 1(586) 580-813806-09-2025 History of Present illness Narrative* Jorge Camejo MD - 04/13/2025 2:48 PM EDTAssociated Problem(s): Class 3 severe obesity due to excess calories with serious comorbidity and body mass index (BMI) of 50.0 to 59.9 in adult Weight loss indicated. * Jorge Camejo MD - 04/13/2025 2:40 PM EDTAssociated Problem(s): Medicare annual wellness visit, subsequent Due for labs. Discussed proper diet and regular aerobic exercise. Need aerobic exercise 5-6 days a week for 30 minutes at a time. Smaller portions and limit total calories. Tetanus every 10 years. Advised not to smoke. * Jorge Camejo MD - 04/13/2025 2:00 PM EDT Images [...] Advised not to smoke. documented in this encounterLake Regional Health [id number] History of Present illness Narrative* Jorge Camejo MD - 12/11/2024 2:22 PM ESTAssociated Problem(s): HEENA (obstructive sleep apnea) Sleeping well with CPAP and continue. Patient is benefiting from PAP therapy. * Jorge Camejo MD - 12/11/2024 2:22 PM ESTAssociated Problem(s): Lumbosacral spondylosis with radiculopathy Pain unchanged and use ultram PRN. * Jorge Camejo MD - 12/11/2024 2:22 PM ESTAssociated Problem(s): Essential hypertension, benign (CMS/HCC) BP controlled and monitor PRN. * Jorge Camejo MD - 12/11/2024 2:22 PM ESTAssociated Problem(s): Class 3 severe obesity due to excess calories with serious comorbidity and body mass index (BMI) of 50.0 to 59.9 in adult (CMS/HCC) Weight loss indicated. * Jorge Camejo MD - 12/11/2024 2:22 PM ESTAssociated Problem(s): Chronic diastolic heart failure (CMS/HCC) Edema controlled with medication and continue. Elevate legs PRN. * Jorge Camejo MD - 12/11/2024 2:22 PM ESTAssociated Problem(s): Bilateral primary osteoarthritis of knee Pain stable and use gel PRN. Follow with ortho. * Jorge Camejo MD - 12/11/2024 2:00 PM EST Images from the original note were not included. Subjective Patient ID: Taj Cabral is a 79 y.o. male who presents for Follow-up (Check up). Follow up HTN, CHF, back pain, OA knees, and HEENA. Patient feels well today. Checking BP at home andtypically controlled. BP normal today. Taking medication daily and tolerating without side effects.Edema controlled with medication. Mild swelling at end of day and if on feet a lot. Edema improved in am and with elevation. Back pain unchanged. Continues to have pain in low back and across hips. Pain radiates into bilateral gluteal region and down legs. Symptoms with sitting or standing. Using ultram PRN and mild relief. OA knees stable. Frequent popping, clicking, and grinding. Not unsteady or giving out. Seen by ortho and injection 2 days ago which typically helps. Voltaren gel helps. HEENA controlled with CPAP. Using machine nightly for entire time asleep, typically 6-8 hours. Sleeping well and not waking up as much during night. Rested in am and not as tired during day. Review of Systems Constitutional: Negative for fatigue. [...] There is no guarding or rebound. Musculoskeletal: Left lower leg: No edema. Neurological: Mental Status: He is alert. Assessment/Plan Problem List Items Addressed This Visit Essential hypertension, benign (CMS/HCC) - Primary BP controlled and monitor PRN. Chronic diastolic heart failure (CMS/HCC) Edema controlled with medication and continue. Elevate legs PRN. Relevant Orders TSH T4, free Dyslipidemia (CMS/HCC) Relevant Orders Lipid panel Acquired hypothyroidism ([facility]/HCC) Lumbosacral spondylosis with radiculopathy Pain unchanged and use ultram PRN. Prediabetes Relevant Orders Hemoglobin A1c Class 3 severe obesity due to excess calories with serious comorbidity and body mass index (BMI) of50.0 to 59.9 in adult ([facility]) Weight loss indicated. Bilateral primary osteoarthritis of knee Pain stable and use gel PRN. Follow with ortho. HEENA (obstructive sleep apnea) Sleeping well with CPAP and continue. Patient is benefiting from PAP therapy. Encounter for long-term (current) use of medications Relevant Orders CBC and differential Hepatic function panel Screening PSA (prostate specific antigen) Relevant Orders PSA CKD stage 3a, GFR 45-59 ml/min ([facility]) Relevant Orders Basic metabolic panel documented in this encounterLake Regional Health [id number] History of Present illness Narrative* Jr. Marie Palmer, DO - 12/09/2024 11:00 AM ESTAssociated Order(s): L Inj/Asp: L knee Post-Procedure Diagnose(s): Primary osteoarthritis of left knee Images from the original note were not included. HISTORY OF PRESENT ILLNESS: EST PT Rafael Cabral is an 79 y.o. @ male. (EST PT) RECHECK (L) KNEE - S/P GEL ONE 06/02/24 (~6MO) WITH RELIEF FOR ~5 MONTHS XRAYS LT KNEE 04/27/21 IN EXA NO MRI S/P MDP 09/25/18 S/P CORTISONE INJ 07/02/19, 05/11/17, 07/27/21, 07/11/23 S/P GEL-ONE INJ 04/27/21, 11/09/21, 05/24/22, 12/13/22, 11/14/23, 06/02/24 S/P SYNVISC-ONE 08/07/18 NO PHYSICAL THERAPY PAIN MGMT DR MCLEAN HX LEFT KNEE SCOPE YEARS AGO - DR. PALMER NOTES SOME GOOD AND BAD DAYS- INCREASED PAIN WITH COLD AND RAINY WEATHER- MEDIAL PAIN- ADMITS STIFFNESS- PT NOTES SOME INSTABILITY- USES WALKER TO AMBULATE - +TRAMADOL ALLERGIES: No Known Allergies HOME MEDICATIONS: Current Outpatient Medications Medication Instructions furosemide (LASIX) 40 mg, Oral, Daily levothyroxine (SYNTHROID, LEVOXYL) 150 mcg, Oral, Daily mupirocin (Bactroban) 2 % ointment APPLY TO AFFECTED AREA 3 TIMES A DAY pregabalin (LYRICA) 75 mg, Oral, 2 times daily spironolactone (ALDACTONE) 25 mg, Oral, 2 times daily traMADol (Ultram) 50 MG tablet TAKE 2 TABLET BY MOUTH TWICE A DAY NEEDED PHYSICAL EXAM: Knee Musculoskeletal Exam Gait Antalgic: left Inspection Leg length disparity: no discrepancy Left Erythema: none Effusion: mild Edema: none Ecchymosis: none Deformity: none Alignment: varus Palpation Left Left knee palpation is unremarkable. Increased warmth: none Masses: none Crepitus: patellofemoral and medial Tenderness: present Medial joint line: moderate Patella: mild Range of Motion Left Left knee range of motion is normal and full. Active extension: 5 Passive extension: 5 Active flexion: 115 Passive flexion: 125 Strength Left Left knee strength is normal. Extension: 5/5. Extension is affected by pain. Flexion: 5/5. Flexion is affected by pain. Instability Left Instability signs: none - stable Anterior drawer: normal Neurovascular Left Left knee neurovascular exam is normal. Pulses - PT: normal Posterior tibial: 2+ Capillary refill: warm and well-perfused Special Signs Left Left knee special signs are normal. General Constitutional: appears stated age Labored breathing: no Psychiatric: normal mood and affect Neurological: alert Skin: intact Lymphadenopathy: none Vitals: There is no height or weight on file to calculate BMI. Tobacco Use: Medium Risk (08/27/2024) Patient History Smoking Tobacco Use: Former Smokeless Tobacco Use: Never Passive Exposure: Not on file Alcohol Use: Not At Risk (11/19/2023) AUDIT-C Frequency of Alcohol Consumption: Monthly or less Average Number of Drinks: 1 or 2 Frequency of Binge Drinking: Never IMAGING: L Inj/Asp: L knee on 12/09/2024 11:41 AM Indications: pain Details: 21 G needle, anterolateral approach Medications: 30 mg cross-linked hyaluronate 30 MG/3ML Outcome: tolerated well, no immediate complications UTILIZING ASEPTIC TECHNIQUE PT GIVEN INJECTION IN LEFT KNEE, NEUROVASC INTACT S/P INJ, TOLERATED WELL Procedure, treatment alternatives, risks and benefits explained, specific risks discussed. Consent was given by the patient. Orders Placed This Encounter Procedures L Inj/Asp: L knee This order was created via procedure documentation ASSESSMENT: ICD-10-CM 1. Primary osteoarthritis of left knee M17.12 L Inj/Asp: L knee 2. Pain and swelling of left knee M25.562 M25.462 3. Bilateral primary osteoarthritis of knee M17.0 Ambulatory referral to Orthopaedic Surgery PLAN: We have discussed his case with him at length and recommended gel one injection and performed that under sterile technique today in the left knee after obtaining informed consent, under sterile technique. We have discussed his restrictions and home exercise program. We will see him back in 6 months. Patient understands that he has changed insurance. He states if it is not approved by insurance insurance. She will pay cortez for his gel injection today. Questions answered in laymen terms at the bedside. The diagnosis, home exercise plan and any ongoing restrictions/ recommendations reviewed. If unable to be reached in office, I recommend evaluation at nearest Emergency Room if any symptoms worsened or new symptoms develop for requiring urgent evaluation. documented in this encounterLake Regional Health [id number] History of Present illness Narrative* Jorge Camejo MD - 08/27/2024 2:45 PM EDTAssociated Problem(s): CKD stage 3a, GFR 45-59 ml/min ([facility]) Renal function stable and follow with nephrology. * Jorge Camejo MD - 08/27/2024 2:44 PM EDTAssociated Problem(s): Class 3 severe obesity due to excess calories with serious comorbidity and body mass index (BMI) of 50.0 to 59.9 in adult (CMS/HCC) Weight loss indicated. * Jorge Camejo MD - 08/27/2024 2:43 PM EDTAssociated Problem(s): HEENA (obstructive sleep apnea) Sleeping well with CPAP and continue. Patient is benefiting from PAP therapy. * Jorge Camejo MD - 08/27/2024 2:43 PM EDTAssociated Problem(s): Lumbosacral spondylosis with radiculopathy Pain unchanged and use ultram PRN. * Jorge Camjeo MD - 08/27/2024 2:43 PM EDTAssociated Problem(s): Essential hypertension, benign ([facility]/HCC) BP controlled and monitor PRN. * Jorge Camejo MD - 08/27/2024 2:43 PM EDTAssociated Problem(s): Chronic diastolic heart failure ([facility]/HCC) Edema controlled with medication and continue. Elevate legs PRN. * Jorge Camejo MD - 08/27/2024 2:43 PM EDTAssociated Problem(s): Bilateral primary osteoarthritis of knee Pain stable and use gel PRN. * Jorge Camejo MD - 08/27/2024 1:30 PM EDT Images from the original note were not included. Subjective Patient ID: Taj Cabral is a 78 y.o. male who presents for Follow-up (3 m). Follow up HTN, CHF, back pain, OA knees, and HEENA. Checking BP at home and typically controlled. BP normal today. Taking medication daily and tolerating without side effects. Edema controlled with medication. Mild swelling at end of day and if on feet a lot. Edema improved in am and with elevation. Back pain unchanged. Continues to have pain in low back and across hips. Pain radiates into bilateral gluteal region and down legs. Symptoms with sitting or standing. Frequent pain and burning and very uncomfortable. Using ultram PRN and mild relief. OA knees stable. Frequent popping, clicking, and grinding. Not unsteady or giving out. Voltaren gel helps. HEENA controlled with CPAP. Using machine nig htly for entire time asleep, typically 6-8 hours. Sleeping well and not waking up as much during night. Rested in am and not as tired during day. Review of Systems Constitutional: Negative for fatigue. [...] There is no guarding or rebound. Musculoskeletal: Left lower leg: No edema. Neurological: Mental Status: He is alert. Assessment/Plan Problem List Items Addressed This Visit Essential hypertension, benign (CMS/HCC) - Primary BP controlled and monitor PRN. Chronic diastolic heart failure (CMS/HCC) Edema controlled with medication and continue. Elevate legs PRN. Lumbosacral spondylosis with radiculopathy Pain unchanged and use ultram PRN. Bilateral primary osteoarthritis of knee Pain stable and use gel PRN. HEENA (obstructive sleep apnea) Sleeping well with CPAP and continue. Patient is benefiting from PAP therapy. CKD stage 3a, GFR 45-59 ml/min (CMS/HCC) Renal function stable and follow with nephrology. documented in this encounterLake Regional Health [id number] History of Present illness Narrative* Gumaro Malhotra, DO - 01/17/2024 11:20 AM EDT Subjective Rafael Cabral is a 78 y.o. male Chief Complaint Annual Exam 78-year-old gentleman returns for follow-up he is doing well he denies any cardiovascular events, recurrent thromboembolic or bleeding disorders or events. He had DVT associated with COVID illness inAugust 2021 with suspected PE but never physically documented [...] of lower extremity, unspecified chronicity, unspecified laterality ([facility]) 2. Pulmonary embolism, unspecified chronicity, unspecified pulmonary embolism type, unspecified whether acute cor pulmonale present (CMS/[facility]) 3. Essential hypertension 4. BMI 50.0-59.9, adult ([facility]/HCC) 5. Chronic kidney disease, unspecified CKD stage 6. Former smoker Scribe Attestation By signing my name below, IKrystle LPN, Scribe attest that this documentation has been prepared under the direction and in the presence of Reyna Malhotra DO. Provider Attestation - Scribe documentation All medical record entries made by the Scribe were at my direction and personally dictated by me. Ihave reviewed the chart and agree that the record accurately reflects my personal performance of the history, physical exam, discussion and plan. [facility] Work Phone: 1(107) 318-820203-14-2024 Instructions* Patient Instructions* Krystle Husain LPN - 01/17/2024 11:20 AM [...] BMI 30: 153.4 Lbs documented in [facility] Work Phone: 1(665) 811-894902-07-2024 History of Present illness Narrative* Jr. Marie Palmer DO - 12/12/2023 2:00 PM ESTAssociated Order(s): Hand / UE Inj/Asp: R small [...] KNOWN INJURY- NOTES PAIN- POSSIBLY INJ RT LFTODAY ALLERGIES: No Known Allergies HOME MEDICATIONS: Current [...] motion to right little finger, but triggering atthe extremes of flexion and extension Strength Strength [...] for requiring urgent evaluation. Marie Palmer Jr., documented in this encounterLake Regional Health [id number] Evaluation note* Encounter Date Diagnosis Assessment Notes Treatment Notes Treatment Clinical Notes Dec, Hypertensive chronic kidney disease w [...] with Xarelto. Shortness of breath has improved. [employer] Other 03-23-2023 NoteCONSULTATION CONSULTATION DATE: 01/25/2023 TO: [...] this imaging study or sooner if needed.[id number] Evaluation note* Encounter Date Diagnosis Assessment Notes [...] provoked by travel, COVID 19 and immobility. [employer] Other 11-10-2022 NoteCONSULTATION CONSULTATION DATE: 09/14/2022 HISTORY [...] indicated, and patient agrees with this plan.[id number] Evaluation note* Encounter Date Diagnosis Assessment Notes [...] pulmonary if shortness of breath is worse. [employer] Other 08-11-2022 NoteCONSULTATION CONSULTATION DATE: 06/15/2022 HISTORY [...] heel. Activities such as standing, walking and associate product manager hours are most painful. Current medications include [...] him up in the clinic post procedure.[facility]burgEexbhtar11-15-5344 NoteCONSULTATION CONSULTATION DATE: 03/30/2022 HISTORY OF PRESENT [...] in three months' time unless otherwise indicated. [facility] Signed and Approved by: DOMO SANCHEZ . 04/06/2022 16:04:00[facility]04-14-2022 NoteCONSULTATION PAIN MANAGEMENT CONSULTATION HISTORY OF PRESENT [...] of care and all questions were answered. [facility] Signed and Approved by: DOMO SANCHEZ . 02/23/2022 13:58:00[facility] noteNo InformationNophelps health [place] Other Evaluation note* Diagnosis Acquired trigger finger of right little finger- Primary documented in this encounter [facility] HealthcareEvaluation note* Diagnosis Deep vein thrombosis (DVT) of distal vein of lower extremity, unspecified chronicity, unspecified laterality ([facility]) Pulmonary embolism, unspecified chronicity, unspecified pulmonary embolism type, unspecified whether acute cor pulmonale present ([facility]) Essential hypertension Unspecified essential hypertension BMI 50.0-59.9, adult ([facility]) Chronic kidney disease, unspecified CKD stage Former smoker Personal history of tobacco use, presenting hazards to health documented in this encounter [facility] Work Phone: Evaluation note* Diagnosis Other spondylosis with radiculopathy, lumbosacral region Lumbosacral spondylosis without myelopathy documented in this encounter [facility] HealthcareEvaluation note* Diagnosis Essential hypertension, benign (CMS/HCC)- Primary Essential hypertension, benign Chronic diastolic heart failure ([facility]/HCC) Chronic diastolic heart failure Lumbosacral spondylosis with radiculopathy Bilateral primary osteoarthritis of knee HEENA (obstructive sleep apnea) Obstructive sleep apnea (adult) (pediatric) Prediabetes Other abnormal glucose Acquired hypothyroidism (CMS/[facility]) Unspecified hypothyroidism Screening PSA (prostate specific antigen) Special screening for malignant neoplasm of prostate Encounter for long-term (current) use of medications Encounter for long-term (current) use of other medications Dyslipidemia ([facility]) Other and unspecified hyperlipidemia Essential hypertension, benign (CMS/HCC)- Primary Essential hypertension, benign Chronic diastolic heart failure (CMS/HCC) Chronic diastolic heart failure Lumbosacral spondylosis with radiculopathy Bilateral primary osteoarthritis of knee HEENA (obstructive sleep apnea) Obstructive sleep apnea (adult) (pediatric) CKD stage 3a, GFR 45-59 ml/min (CMS/[facility]) Morbid obesity (CMS/HCC) Morbid obesity Prediabetes Other abnormal glucose Essential hypertension, benign (CMS/HCC)- Primary Essential hypertension, benign Chronic diastolic heart failure (CMS/HCC) Chronic diastolic heart failure Leg ulcer, left, limited to breakdown of skin (CMS/[facility]) Lumbosacral spondylosis with radiculopathy Bilateral primary osteoarthritis of knee HEENA (obstructive sleep apnea) Obstructive sleep apnea (adult) (pediatric) Morbid (severe) obesity due to excess calories ([facility]) Body mass index (BMI) 50.0-59.9, adult ([facility]) Essential hypertension, benign (CMS/HCC)- Primary Essential hypertension, benign Chronic diastolic heart failure (CMS/HCC) Chronic diastolic heart failure Lumbosacral spondylosis with radiculopathy Bilateral primary osteoarthritis of knee HEENA (obstructive sleep apnea) Obstructive sleep apnea (adult) (pediatric) CKD stage 3a, GFR 45-59 ml/min ([facility]) documented in this encounter [facility] HealthcareEvaluation note* Diagnosis Essential hypertension, benign (CMS/HCC)- Primary Essential hypertension, benign Chronic diastolic heart failure (CMS/HCC) Chronic diastolic heart failure Lumbosacral spondylosis with radiculopathy Bilateral primary osteoarthritis of knee HEENA (obstructive sleep apnea) Obstructive sleep apnea (adult) (pediatric) Prediabetes Other abnormal glucose Acquired hypothyroidism ([facility]) Unspecified hypothyroidism Screening PSA (prostate specific antigen) Special screening for malignant neoplasm of prostate Encounter for long-term (current) use of medications Encounter for long-term (current) use of other medications Dyslipidemia ([facility]) Other and unspecified hyperlipidemia Essential hypertension, benign ([facility])- Primary Essential hypertension, benign Chronic diastolic heart failure (CMS/HCC) Chronic diastolic heart failure Lumbosacral spondylosis with radiculopathy Bilateral primary osteoarthritis of knee HEENA (obstructive sleep apnea) Obstructive sleep apnea (adult) (pediatric) CKD stage 3a, GFR 45-59 ml/min ([facility]/HCC) Morbid obesity ([facility]) Morbid obesity Prediabetes Other abnormal glucose Essential hypertension, benign ([facility])- Primary Essential hypertension, benign Chronic diastolic heart failure ([facility]/HCC) Chronic diastolic heart failure Leg ulcer, left, limited to breakdown of skin ([facility]) Lumbosacral spondylosis with radiculopathy Bilateral primary osteoarthritis of knee HEENA (obstructive sleep apnea) Obstructive sleep apnea (adult) (pediatric) Morbid (severe) obesity due to excess calories ([facility]) Body mass index (BMI) 50.0-59.9, adult ([facility]) Essential hypertension, benign ([facility])- Primary Essential hypertension, benign Chronic diastolic heart failure (CMS/HCC) Chronic diastolic heart failure Lumbosacral spondylosis with radiculopathy Bilateral primary osteoarthritis of knee HEENA (obstructive sleep apnea) Obstructive sleep apnea (adult) (pediatric) CKD stage 3a, GFR 45-59 ml/min ([facility]) Primary osteoarthritis of left knee- Primary Pain and swelling of left knee Bilateral primary osteoarthritis of knee documented in this encounter [facility] HealthcareEvaluation note* Diagnosis Essential hypertension, benign (CMS/HCC)- Primary Essential hypertension, benign Chronic diastolic heart failure (CMS/HCC) Chronic diastolic heart failure Lumbosacral spondylosis with radiculopathy Bilateral primary osteoarthritis of knee HEENA (obstructive sleep apnea) Obstructive sleep apnea (adult) (pediatric) Prediabetes Other abnormal glucose Acquired hypothyroidism (CMS/HCC) Unspecified hypothyroidism Screening PSA (prostate specific antigen) Special screening for malignant neoplasm of prostate Encounter for long-term (current) use of medications Encounter for long-term (current) use of other medications Dyslipidemia (CMS/HCC) Other and unspecified hyperlipidemia Essential hypertension, benign (CMS/HCC)- Primary Essential hypertension, benign Chronic diastolic heart failure (CMS/HCC) Chronic diastolic heart failure Lumbosacral spondylosis with radiculopathy Bilateral primary osteoarthritis of knee HEENA (obstructive sleep apnea) Obstructive sleep apnea (adult) (pediatric) CKD stage 3a, GFR 45-59 ml/min (CMS/HCC) Morbid obesity (CMS/HCC) Morbid obesity Prediabetes Other abnormal glucose Essential hypertension, benign (CMS/HCC)- Primary Essential hypertension, benign Chronic diastolic heart failure (CMS/HCC) Chronic diastolic heart failure Leg ulcer, left, limited to breakdown of skin (CMS/HCC) Lumbosacral spondylosis with radiculopathy Bilateral primary osteoarthritis of knee HEENA (obstructive sleep apnea) Obstructive sleep apnea (adult) (pediatric) Morbid (severe) obesity due to excess calories (CMS/HCC) Body mass index (BMI) 50.0-59.9, adult (CMS/HCC) Essential hypertension, benign (CMS/HCC)- Primary Essential hypertension, benign Chronic diastolic heart failure (CMS/HCC) Chronic diastolic heart failure Lumbosacral spondylosis with radiculopathy Bilateral primary osteoarthritis of knee HEENA (obstructive sleep apnea) Obstructive sleep apnea (adult) (pediatric) CKD stage 3a, GFR 45-59 ml/min (CMS/HCC) Essential hypertension, benign (CMS/HCC)- Primary Essential hypertension, benign Chronic diastolic heart failure (CMS/HCC) Chronic diastolic heart failure Lumbosacral spondylosis with radiculopathy Bilateral primary osteoarthritis of knee HEENA (obstructive sleep apnea) Obstructive sleep apnea (adult) (pediatric) Class 3 severe obesity due to excess calories with serious comorbidity and body mass index (BMI) of 50.0 to 59.9 in adult (CMS/HCC) CKD stage 3a, GFR 45-59 ml/min (CMS/HCC) Dyslipidemia (CMS/HCC) Other and unspecified hyperlipidemia Encounter for long-term (current) use of medications Encounter for long-term (current) use of other medications Prediabetes Other abnormal glucose Screening PSA (prostate specific antigen) Special screening for malignant neoplasm of prostate Acquired hypothyroidism (CMS/HCC) Unspecified hypothyroidism documented in this encounter [facility] HealthcareEvaluation note* Diagnosis Essential hypertension, benign (CMS/HCC)- Primary Essential hypertension, benign Chronic diastolic heart failure (CMS/HCC) Chronic diastolic heart failure Lumbosacral spondylosis with radiculopathy Bilateral primary osteoarthritis of knee HEENA (obstructive sleep apnea) Obstructive sleep apnea (adult) (pediatric) Prediabetes Other abnormal glucose Acquired hypothyroidism (CMS/HCC) Unspecified hypothyroidism Screening PSA (prostate specific antigen) Special screening for malignant neoplasm of prostate Encounter for long-term (current) use of medications Encounter for long-term (current) use of other medications Dyslipidemia (CMS/HCC) Other and unspecified hyperlipidemia Essential hypertension, benign (CMS/HCC)- Primary Essential hypertension, benign Chronic diastolic heart failure (CMS/HCC) Chronic diastolic heart failure Lumbosacral spondylosis with radiculopathy Bilateral primary osteoarthritis of knee HEENA (obstructive sleep apnea) Obstructive sleep apnea (adult) (pediatric) CKD stage 3a, GFR 45-59 ml/min (CMS/HCC) Morbid obesity (CMS/HCC) Morbid obesity Prediabetes Other abnormal glucose Essential hypertension, benign (CMS/HCC)- Primary Essential hypertension, benign Chronic diastolic heart failure (CMS/HCC) Chronic diastolic heart failure Leg ulcer, left, limited to breakdown of skin (CMS/HCC) Lumbosacral spondylosis with radiculopathy Bilateral primary osteoarthritis of knee HEENA (obstructive sleep apnea) Obstructive sleep apnea (adult) (pediatric) Morbid (severe) obesity due to excess calories (CMS/HCC) Body mass index (BMI) 50.0-59.9, adult (CMS/HCC) Essential hypertension, benign (CMS/HCC)- Primary Essential hypertension, benign Chronic diastolic heart failure (CMS/HCC) Chronic diastolic heart failure Lumbosacral spondylosis with radiculopathy Bilateral primary osteoarthritis of knee HEENA (obstructive sleep apnea) Obstructive sleep apnea (adult) (pediatric) CKD stage 3a, GFR 45-59 ml/min (CMS/HCC) Essential hypertension, benign (CMS/HCC)- Primary Essential hypertension, benign Chronic diastolic heart failure (CMS/HCC) Chronic diastolic heart failure Lumbosacral spondylosis with radiculopathy Bilateral primary osteoarthritis of knee HEENA (obstructive sleep apnea) Obstructive sleep apnea (adult) (pediatric) Class 3 severe obesity due to excess calories with serious comorbidity and body mass index (BMI) of 50.0 to 59.9 in adult (CMS/HCC) CKD stage 3a, GFR 45-59 ml/min (CMS/HCC) Dyslipidemia (CMS/HCC) Other and unspecified hyperlipidemia Encounter for long-term (current) use of medications Encounter for long-term (current) use of other medications Prediabetes Other abnormal glucose Screening PSA (prostate specific antigen) Special screening for malignant neoplasm of prostate Acquired hypothyroidism (CMS/HCC) Unspecified hypothyroidism Other spondylosis with radiculopathy, lumbosacral region Lumbosacral spondylosis without myelopathy Acquired hypothyroidism (CMS/HCC) Unspecified hypothyroidism documented in this encounter [facility] HealthcareEvaluation note* Diagnosis Essential hypertension, benign (CMS/HCC)- Primary Essential hypertension, benign Chronic diastolic heart failure (CMS/HCC) Chronic diastolic heart failure Lumbosacral spondylosis with radiculopathy Bilateral primary osteoarthritis of knee HEENA (obstructive sleep apnea) Obstructive sleep apnea (adult) (pediatric) Prediabetes Other abnormal glucose Acquired hypothyroidism (CMS/HCC) Unspecified hypothyroidism Screening PSA (prostate specific antigen) Special screening for malignant neoplasm of prostate Encounter for long-term (current) use of medications Encounter for long-term (current) use of other medications Dyslipidemia (CMS/HCC) Other and unspecified hyperlipidemia Essential hypertension, benign (CMS/HCC)- Primary Essential hypertension, benign Chronic diastolic heart failure (CMS/HCC) Chronic diastolic heart failure Lumbosacral spondylosis with radiculopathy Bilateral primary osteoarthritis of knee HEENA (obstructive sleep apnea) Obstructive sleep apnea (adult) (pediatric) CKD stage 3a, GFR 45-59 ml/min (CMS/HCC) Morbid obesity (CMS/HCC) Morbid obesity Prediabetes Other abnormal glucose Essential hypertension, benign (CMS/HCC)- Primary Essential hypertension, benign Chronic diastolic heart failure (CMS/HCC) Chronic diastolic heart failure Leg ulcer, left, limited to breakdown of skin (CMS/HCC) Lumbosacral spondylosis with radiculopathy Bilateral primary osteoarthritis of knee HEENA (obstructive sleep apnea) Obstructive sleep apnea (adult) (pediatric) Morbid (severe) obesity due to excess calories (CMS/HCC) Body mass index (BMI) 50.0-59.9, adult (CMS/HCC) Essential hypertension, benign (CMS/HCC)- Primary Essential hypertension, benign Chronic diastolic heart failure (CMS/HCC) Chronic diastolic heart failure Lumbosacral spondylosis with radiculopathy Bilateral primary osteoarthritis of knee HEENA (obstructive sleep apnea) Obstructive sleep apnea (adult) (pediatric) CKD stage 3a, GFR 45-59 ml/min (CMS/HCC) Essential hypertension, benign (CMS/HCC)- Primary Essential hypertension, benign Chronic diastolic heart failure (CMS/HCC) Chronic diastolic heart failure Lumbosacral spondylosis with radiculopathy Bilateral primary osteoarthritis of knee HEENA (obstructive sleep apnea) Obstructive sleep apnea (adult) (pediatric) Class 3 severe obesity due to excess calories with serious comorbidity and body mass index (BMI) of 50.0 to 59.9 in adult CKD stage 3a, GFR 45-59 ml/min (CMS/HCC) Dyslipidemia (CMS/HCC) Other and unspecified hyperlipidemia Encounter for long-term (current) use of medications Encounter for long-term (current) use of other medications Prediabetes Other abnormal glucose Screening PSA (prostate specific antigen) Special screening for malignant neoplasm of prostate Acquired hypothyroidism (CMS/HCC) Unspecified hypothyroidism Medicare annual wellness visit, subsequent- Primary Class 3 severe obesity due to excess calories with serious comorbidity and body mass index (BMI) of 50.0 to 59.9 in adult documented in this encounter [facility] HealthcareEvaluation note* Diagnosis Essential hypertension, benign- Primary Essential hypertension, benign Chronic diastolic heart failure (HCC) Chronic diastolic heart failure Lumbosacral spondylosis with radiculopathy Bilateral primary osteoarthritis of knee HEENA (obstructive sleep apnea) Obstructive sleep apnea (adult) (pediatric) Prediabetes Other abnormal glucose Acquired hypothyroidism Unspecified hypothyroidism Screening PSA (prostate specific antigen) Special screening for malignant neoplasm of prostate Encounter for long-term (current) use of medications Encounter for long-term (current) use of other medications Dyslipidemia Other and unspecified hyperlipidemia Essential hypertension, benign- Primary Essential hypertension, benign Chronic diastolic heart failure (HCC) Chronic diastolic heart failure Lumbosacral spondylosis with radiculopathy Bilateral primary osteoarthritis of knee HEENA (obstructive sleep apnea) Obstructive sleep apnea (adult) (pediatric) CKD stage 3a, GFR 45-59 ml/min ([facility] Morbid obesity ([facility]) Morbid obesity Prediabetes Other abnormal glucose Essential hypertension, benign- Primary Essential hypertension, benign Chronic diastolic heart failure (HCC) Chronic diastolic heart failure Leg ulcer, left, limited to breakdown of skin (HCC) Lumbosacral spondylosis with radiculopathy Bilateral primary osteoarthritis of knee HEENA (obstructive sleep apnea) Obstructive sleep apnea (adult) (pediatric) Morbid (severe) obesity due to excess calories ([facility]) Body mass index (BMI) 50.0-59.9, adult ([facility]) Essential hypertension, benign- Primary Essential hypertension, benign Chronic diastolic heart failure (HCC) Chronic diastolic heart failure Lumbosacral spondylosis with radiculopathy Bilateral primary osteoarthritis of knee HEENA (obstructive sleep apnea) Obstructive sleep apnea (adult) (pediatric) CKD stage 3a, GFR 45-59 ml/min ([facility]) Essential hypertension, benign- Primary Essential hypertension, benign Chronic diastolic heart failure (HCC) Chronic diastolic heart failure Lumbosacral spondylosis with radiculopathy Bilateral primary osteoarthritis of knee HEENA (obstructive sleep apnea) Obstructive sleep apnea (adult) (pediatric) Class 3 severe obesity due to excess calories with serious comorbidity and body mass index (BMI) of 50.0 to 59.9 in adult ([facility]) CKD stage 3a, GFR 45-59 ml/min ([facility]) Dyslipidemia Other and unspecified hyperlipidemia Encounter for long-term (current) use of medications Encounter for long-term (current) use of other medications Prediabetes Other abnormal glucose Screening PSA (prostate specific antigen) Special screening for malignant neoplasm of prostate Acquired hypothyroidism Unspecified hypothyroidism Medicare annual wellness visit, subsequent- Primary Class 3 severe obesity due to excess calories with serious comorbidity and body mass index (BMI) of 50.0 to 59.9 in adult ([facility]) Other spondylosis with radiculopathy, lumbosacral region Lumbosacral spondylosis without myelopathy documented in this encounter [facility] HealthcareEvaluation note* Diagnosis Onset Date Resolution Status Admit Date Chronic renal failure (CRF), stage 3b acute June 04, 2025 1:58pm Hypertensive chronic kidney disease with stage 1 through stage 4 chronic ki acute June 04 1:58pm Pulmonary embolism acute May [id number] 1:58pm CHF (congestive heart failure) inact lyubov June 04, 2025 1:58pm DVT (deep venous thrombosis) inactiv e June 04, 2025 1:58pm [facility] Work Phone: History general Narrative - Reported* Type Description Date Medical History ACUTE KIDNEY INJURY Medical History CHF (CONGESTIVE HEART FAILURE) Medical History PULMONARY EMBOLISM ASSOCIATED WI TH COVID 19 Medical History DVT (DEEP VENOUS THROMBOSIS) Surgical History KNEE SURGERY LEFT Surgical History KNEE SURGERY RIGHT Hospitalization History ACUTE KIDNEY INJ URY, CHF, PULMONARY EMBOLISM ASSOCIATED WITH COVID 19 06/22/2022 [employer] Other Reason for referral (narrative)No reason for referral information [facility] Work Phone: Summary Purpose Family History Unknown Family Member Name Dates Details Family history of malignant neoplasm: Father(V16.9, Z80.9) Status:Active Unknown Family Member Name Dates Details Family history of malignant neoplasm: Father(V16.9, Z80.9) Status:Active Relationship Condition Age at Onset Recorded Date/T wiley mother Dementia Unknown father Malignant neoplasm Unknown brother Unknown Malignant neoplasm Unknown father Unknown mother History of stroke Unknown Unknown Advance Directives Advance Directive Response Recorded Date/ Time Advance Directives No June 22, 2022 7:26pm Chief Complaint * 07/05/2022 [facility] [place] SP EKOS. [...] Referral Specialty Diagnoses / Procedures Referred By Gretta t Referred To Contact Orthopaedic Surgery Diagnoses Acquired trigger finger of right little finger Procedures Hand / UE Inj/Asp: Jr. Marie Mishra, DO [address] [place] [address] Referral ID Status Reason Start Date Expiration Date V isits Requested Visits Authorized [id number] Pending Review 12/12/2023 06/09/2024 1 1 Chief Complaint and Reason for Visit Chief Complaint Admit Date RENAL 1 YR R/U June 04, 2025 1:58 pm Reason for Visit Admit Date Chronic renal failure (CRF), stage 3b Ju ly 2024 1:58pm Hypertensive chronic kidney disease with stage 1 through stage 4 chronic ki June 04, 2025 1:58pm Pulmonary embolism June 04, 2025 1:58 pm CHF (congestive heart failure) May 1:58pm DVT (deep venous thrombosis) June 04, 2025 1:58pm Chief Complaint Admit Date RENAL 1 YR R/U June 04, 2025 1:58 pm Established Patient July 21, 2025 1:54pm Reason for Visit Admit Date Pulmonary embolism June 04, 2025 1:58 pm CHF (congestive heart failure) May 1:58pm Chronic renal failure (CRF), stage 3b Ju ly 2024 1:58pm DVT (deep venous thrombosis) June 04, 2025 1:58pm Hypertensive chronic kidney disease with stage 1 through stage 4 chronic ki June 04, 2025 1:58pm Benign essential hypertension July 21, 2025 1:54pm Bilateral primary osteoarthritis of knee July 21, 2025 1:54pm Chronic diastolic heart failure Septembe r 2024 1:54pm Lumbosacral spondylosis with radiculopat hy July 21, 2025 1:54pm HEENA (obstructive sleep apnea) July 21, 2025 1:54pm Additional Source Comments (unrecognized sect ion and content) No Status Records FoundNo Status Records FoundNo Status Records FoundNo Status Records FoundNo Status Records FoundNo Status Records FoundNo Status Records Found INFORMATION SOURCE (unrecogn ized section and content) DATE CREATED AUTHOR 08/22/2018 [facility] DATE CREATED AUTHOR AUTHOR'S ORGANIZ ATION 12/09/2022 [facility] DATE CREATED AUTHOR AUTHOR'S ORGANIZ ATION 01/05/2023 [facility] DATE CREATED AUTHOR AUTHOR'S ORGANIZ ATION 01/06/2023 [employer] DATE CREATED AUTHOR AUTHOR'S ORGANIZ ATION 01/28/2023 [facility] DATE CREATED AUTHOR AUTHOR'S ORGANIZ ATION 01/18/2024 [facility] DATE CREATED AUTHOR AUTHOR'S ORGANIZ ATION 04/14/2025 [facility] EPIC REASON FOR VISIT (unrecogniz ed section and content) Reason Comments Pain Specialty Diagnoses / Procedures Referred By Contac t Referred To Contact Orthopaedic Surgery Diagnoses Bilateral primary osteoarthritis of knee Jorge Camejo MD [address] [place] [address] Phone: tel: fax: Jr. Mraie Palmer, DO [address] [place] [address] Phone: tel: fax: Referral ID Status Reason Start Date Expiration Date V isits Requested Visits Authorized [id number] Closed Specialty Services Required 12/01/2024 05/30/2025 1 1 Reason Comments Annual Exam 1yr Reason Comments Med Refill Reason Comments Follow-up 3 m Reason Comments Follow-up Check up Reason Comments Medicare Annual Wellness Visit Subsequen t wellness Care Teams (unrecognized sec tion and content) Flour Inspector Relationship Specialty Start Date End Date Jorge Camejo MD [address] [place] [address] PCP - General Family Medicine 12/06/23 Flour Inspector Relationship Specialty Start Date End Date Jorge Camejo MD [address] [place] [phone] PCP - General Family Medicine 12/06/23 Flour Inspector Relationship Specialty Start Date End Date Jorge Camejo MD [address] [place], [place] [phone] PCP - General Family Medicine 01/17/24 Flour Inspector Relationship Specialty Start Date End Date Jorge Camejo MD [address] [place] [address] PCP - General Family Medicine 12/06/23 Flour Inspector Relationship Specialty Start Date End Date Jorge Camejo MD [address] [place] [address] PCP - General Family Medicine 12/06/23 Flour Inspector Relationship Specialty Start Date End Date Jorge Camejo MD [address] [place] [address] PCP - General Family Medicine 12/06/23 Flour Inspector Relationship Specialty Start Date End Date Jorge Camejo MD [address] [place] [address] PCP - General Family Medicine 12/06/23 Flour Inspector Relationship Specialty Start Date End Date Jorge Camejo MD [address] [place] [address] PCP - General Family Medicine 12/06/23 Flour Inspector Relationship Specialty Start Date End Date Jorge Camejo MD [address] [place] [address] PCP - General Family Medicine 12/06/23 Flour Inspector Relationship Specialty Start Date End Date Jorge Camejo MD [address] [place] [address] PCP - General Family Medicine 12/06/23 Flour Inspector Relationship Specialty Start Date End Date Jorge Camejo MD [address] [place] [phone] PCP - General Family Medicine 12/06/23 Flour Inspector Relationship Specialty Start Date End Date Jorge Camejo MD [address] [place] [phone] PCP - General Family Medicine 12/06/23 Flour Inspector Relationship Specialty Start Date End Date Jorge Camejo MD [address] [place] [phone] PCP - General Family Medicine 12/06/23 Flour Inspector Relationship Specialty Start Date End Date Jorge Camejo MD [address] [place] [phone] PCP - General Family Medicine 12/06/23 Flour Inspector Relationship Specialty Start Date End Date Jorge Camejo MD [address] [place] [phone] PCP - General Family Medicine 12/06/23 Team Status: Active Member Role Status Dates Jorge Camejo MD Primary Care Provider Active Team Status: Inactive Member Role Status Dates Jorge Caemjo MD Primary Care Provider Active S tart: June 04, 2025 End: June 04, 2025 Oscar Walters MD Attending Provider Active Star t: June 04, 2025 End: June 04, 2025 Team Status: Inactive Member Role Status Dates Jorge Camejo MD Primary Care Provider Active S tart: July 21, 2025 End: July 21, 2025 Jorge Camejo MD Attending Provider Active Star t: July 21, 2025 End: July 21, 2025 Flour Inspector Relationship Specialty Start Date End Date Jorge Camejo MD [address] [place] [phone] PCP - General Family Medicine 07/28/25 Goals (unrecognized section and content) Goals may be documented in a n alternate section FOR RECORDS PERTAINING TO PATIENTS WHO ARE [...] BE BASED ON THE PRIMARY CLINICAL RECORDS. [facility]. provides no warranty or guarantee of the accuracy or completeness of information in this document.
--- NOTE | 2025-07-29 14:02 | PM.CN ---
Consult Note: HPI Data of Consult Patient: known to practice within the last 3 years Consult date: 07/29/25 Requesting Physician: Althea Haney NP Primary Care Provider: Jorge Ortez MD Consult Narrative Reason for consult: f/u Narrative: Eleuterio Cabral a pleasant 79 year old male presents for evaluation and management of chronic pain in low back pain. Today rating pain 5/10 in low back, worse with weight bearing, standing, walking, activity. Patient has been doing well on tramadol and lyrica, without side effects. has been able to decrease tramadol use since last visit. cc:: CC: Althea Haney NP Review of Systems ROS Status of ROS 10 or more systems reviewed and unremarkable except as noted in history and below Musculoskeletal Reports: back pain and joint pain Meds Home Medications and Allergies Home Medications ?Medication ?Instructions ?Recorded ?Confirmed ?Type furosemide 40 mg tablet 40 mg PO DAILY 05/03/23 05/03/23 History levothyroxine 150 mcg capsule 150 mcg PO DAILY 05/03/23 05/03/23 History pregabalin 75 mg capsule (Lyrica) 75 mg PO BID 05/03/23 05/03/23 History rivaroxaban 20 mg tablet (Xarelto) 20 mg PO DAILY 05/03/23 05/03/23 History spironolactone 25 mg tablet 25 mg PO BID 05/03/23 05/03/23 History tramadol 50 mg tablet 50 mg PO BID PRN pain #60 tabs 04/16/25 Rx tramadol 50 mg tablet 50 mg PO BID PRN pain #60 tabs 05/25/25 Rx tramadol 50 mg tablet 50 mg PO BID PRN pain #60 tabs 07/07/25 Rx Allergies Allergy/AdvReac Type Severity Reaction Status Date / Time No Known Drug Allergies Allergy Verified 05/03/23 15:29 Exam Constitutional Documenting provider has reviewed patient's vital signs: yes Common normals: no apparent distress, oriented x3, healthy appearing, alert and well nourished General appearance: cooperative Nutritional appearance: obese HENMT Common normals: normocephalic, hearing grossly normal bilaterally and moist oral mucous membranes Head and scalp: normocephalic Eye Common normals: PERRL Pupil: PERRL Neck & C-Spine Common normals: full ROM General: normal visual inspection Chest Common normals: inspection of chest normal Respiratory Common normals: normal respiratory effort, no retractions and no use of accessory muscles Back & Pelvis Lumbar spine/lower back: ROM limited, pain with ROM and straight leg raise negative bilaterally Extremity Common normals: normal to inspection Neuro Common normals: oriented x3, CN's II-XII intact bilaterally, moves all extremities, no focal motor deficits, no sensory deficits noted and deep tendon reflexes 2+ bilaterally Sensorium/orientation: alert Gait (neuro): antalgic and assistive device used walker Motor exam: strength 5/5 throughout and no movement abnormalities noted Psych Common normals: mental status grossly normal, thought process normal, cooperative, affect normal, speech normal and activity/motor behavior normal Speech: normal speech Thought process: normal thought process Results Additional Findings Additional findings: If on a controlled substance or opioids, I have checked an [place]AR[place] report on this patient and there are no aberrancies noted in the prescribing history.??If on a controlled substance or opioid a drug screen was completed and reviewed within the last year, and if there has not been a drug screen completed we ordered one today to monitor higher risk, state monitored pain medication use. As part of providing excellent, safe, comprehensive care, the following was completed at our patient's visit: 1. A medication reconciliation and review to ensure accurate knowledge of current/active medications, including asking our patients to inform us about any cvid-xwv-iqvymae medications or herbal remedies/nutritional supplements/alternative remedies. 2. A review to specifically ensure our patients have had annual screening for screening for depression, screening for tobacco use, and screening for unhealthy alcohol use. For concerning screenings had a discussion with the patient, provided patient education, and recommended follow-up with primary care provider when appropriate. If patient noted with a risk of falling, they received education on strength, gait, and balance training to prevent future risk of falling. Portions of this note may have been carried over from the previous visit and updated as appropriate. Please note this office utilizes paper charting in addition to the electronic medical record. A list of current medications, vitals, and PMH is available there as the clinical staff outside of myself do not have access to [employer] charting during the clinic day operations. As part of providing quality comprehensive care the current medications, vitals, and PMH were reviewed in the paper chart. Assessment and Plan Assessment and Plan (1) Lumbar spondylosis: (2) Lumbar stenosis: (3) Encounter for long-term opiate analgesic use: Assessment and Plan: I feel these medications are improving the patient's quality of life and allow them to tolerate activities of daily living as well as participate in recreational activity.? The patient does not report intolerable side effects. The patient is NOT opioid naive and non-pharmacologic and non-opioid treatment has failed to significantly relieve the patient's pain and improve functionality. The patient has a diagnosis that is related to a somatic or visceral pain etiology. ? ?? I reviewed with the patient the potential risks and side effects with the use of? opioid medications including but not limited to respiratory depression,? sedation, and even . I verified the patient has access to naloxone should? these effects occur. I advised the patient to avoid the use of any other? sedation substances including alcohol, THC, and benzodiazepines while? taking opioid medications due to the risk of compounding side effects and? detrimental outcomes. I reviewed the CREDIT UNDERWRITER, pain treatment agreement, urine? drug screen, and opioid start talking forms. The patient was advised to let? their family know they had Naloxone in case they would need to administer? the medication.? ?? A drug screen was completed within the last year, and no aberrancies were noted regarding their use of controlled substances. The patient understands they are subject to the terms and conditions of the pain contract that they have signed. ? ?? I have checked an OARRS report on this patient today and there are no aberrancies noted in the prescribing history.? (4) Obesity: Assessment and Plan: The patient was counseled that proper dietary changes and consistent participation in a home exercise plan can lead to weight loss. Weight loss can help to improve functionality in patients with chronic pain.? Plan decrease tramadol 50mg daily-bid prn moderate to severe pain 45 tabs to last 30 days continue PRN tylenol continues to have functional improvement and pain relief as a result of injection therapy and medication management, declining additional workup continue pregabalin 75mg BID through ordering provider f/u 3 months, sooner if needed
== END 2025-07-29 13:07 | disposition home or self-care (01) ==
LOC: PM 13:07
PROVIDERS: PCP Family Medicine; Visit Provider Nurse Practitioner
DX: M47.816 Spondylosis without myelopathy or radiculopathy, lumbar region (principal); M48.02 Spinal stenosis, cervical region; Z79.891 Long term (current) use of opiate analgesic; E66.9 Obesity, unspecified
CPT/HCPCS: G0463

== ENCOUNTER 2025-10-21 13:25 | Outpatient (OUT) | payer OTHER, SELFPAY ==
--- OUTSIDE RECORDS SUMMARY | 2025-10-21 13:28 | XMS_ITS | Clinical Summary ---
Author Organization [employer] s tem Address [id number] [address] [place] [address] Care Team Providers Care Privacy Specialist Name Role Phone Jorge Ortez MD Primary Care Provider [phone] Allergies No known active allergies Social History Tobacco UseTypesPacks/DayYears UsedDateSmoking Tobacco: Never AssessedChildcare AnswerDate EwhllxtxUwieymrzcMywcrao39/12/2019EmploymentAnswerDate Recorded FnsfdtywhnIfovfef04/12/2019Purpose - LifeAnswerDate RecordedPurpose and direction in dleoNonamch36/11/2021Sex and Gender InformationValueDate Recorded Sex Assigned at BirthNot on fileLegal VncPqly0906/10/2015 11:32 AM EDTGender IdentityNot on fileSexual OrientationNot on file Last Filed Vital Signs Vital SignReadingTime TakenCommentsBlood Pressure--Pulse--Temperature-- Respiratory Rate--Oxygen Saturation--Inhaled Oxygen Concentration--Grpxhq299.2 kg (415 lb)08/13/2019 1:04 PM TBIJdturp915.3 cm (5' 11 )08/13/2019 1:04 PM EDT Body Mass Index57.8808/13/2019 1:04 PM EDT Plan of Treatment Health MaintenanceDue DateLast DoneCommentsDepression Ajawxueto65/24/1958Tobacco Gbgrbhpbu16/24/1958DTaP,Tdap and Td Vaccines (1 - Tdap)1965Zoster (Shingles) Vaccine (1 of 2)1996Fall Risk Ysjgmskgd06/24/2011RSV ( or age 60+ yrs) (1 - 1-dose 75+ series)2021Influenza Cjloziu2907/06/2025 Medical Devices Not on file Insurance Care Teams Team MemberRelationshipSpecialtyStart DateEnd Date Jorge Ortez MD PCP - GeneralFamily Medicine03/21/18
--- OUTSIDE RECORDS SUMMARY | 2025-10-21 13:28 | XMS_ITS | Clinical Summary ---
Author Organization [facility] Address [address] [facility] [place] [address] Care Team Providers Care Authorization Representative Name Role Phone Jorge Ortez MD Primary Care Provider [phone] Allergies No known active allergies Medications MedicationSigDispense QuantityRefillsLast FilledStart DateEnd DateStatus traMADol (Ultram) 50 MG tablet TAKE 2 TABLET BY MOUTH TWICE A DAY NEEDEDActive mupirocin (Bactroban) 2 % ointment APPLY TO AFFECTED AREA 3 TIMES A DAY2Active spironolactone (Aldactone) 25 MG tablet Indications:Chronic diastolic heart failure (HCC)Take 1 tablet (25 mg) by mouth in the morning and 1 tablet (25 mg) before bedtime.4Active furosemide (Lasix) 40 MG tablet Indications:Edema,Localized edemaTAKE 1 TABLET BY MOUTH EVERY DAY 90 tablet 4Active levothyroxine (Synthroid, Levoxyl) 150 MCG tablet Indications:Acquired hypothyroidismTAKE 1 TABLET BY MOUTH EVERY DAY 90 tablet 5Active pregabalin (Lyrica) 75 MG capsule Indications:Other spondylosis with radiculopathy, lumbosacral region,Lumbosacral spondylosis without myelopathyTAKE 1 CAPSULE BY MOUTH TWICE A DAY 60 capsule 5Active Active Problems ProblemNoted DateDiagnosed DateMedicare annual wellness visit, subsequent 04/13/2025 Assessment & Plan (04/13/2025 2:40 PM EDT): Due for labs. Discussed proper diet and regular aerobic exercise. Need aerobic exercise 5-6 days a week for 30 minutes at a time. Smaller portions and limit total calories. Tetanus every 10 years. Advised not to smoke. CKD stage 3a, GFR 45-59 ml/min02/25/2024 Assessment & Plan (08/27/2024 2:45 PM EDT): Renal function stable and follow with nephrology. Assessment & Plan (02/25/2024 1:37 PM EDT): Renal function stable and follow with nephrology. Start ozempic to protect kidneys. Essential hypertension, gclszs1411/26/2023 Assessment & Plan (12/11/2024 2:22 PM EST): [...] need to adjust medication. Chronic diastolic heart wvadfbl1211/26/2023 Assessment & Plan (12/11/2024 2:22 PM EST): [...] with medication and continue. Elevate legs PRN. Sdtlxsebbafa40/22/2024cquired zjkjoqjdtcvjci68/22/2024Lumbosacral spondylosis with hwveuoektdlpw02/22/2024 Assessment & Plan (12/11/2024 2:22 PM EST): [...] installed in home to get up stairs. Pxkaaectxfi92/22/2024 Assessment & Plan (02/25/2024 1:37 PM EDT): Start ozempic Class 3 severe obesity due to excess calories with serious comorbidity and body mass index (BMI) of50.0 to 59.9 in adult11/26/2023 Assessment & Plan (04/13/2025 2:48 PM EDT): Weight loss indicated. Assessment & Plan (12/11/2024 2:22 PM EST): Weight loss indicated. Assessment & Plan (08/27/2024 2:44 PM EDT): Weight loss indicated. Primary osteoarthritis of right hip11/26/2023ilateral primary osteoarthritis of knee11/26/2023 Assessment & Plan (12/11/2024 2:22 PM EST): [...] and use gel PRN. HEENA (obstructive sleep apnea)11/26/2023 Assessment & Plan (12/11/2024 2:22 PM EST): [...] therapy. Encounter for long-term (current) use of wdccasczpac08/22/2024Screening PSA (prostate specific antigen)11/26/2023 Resolved Problems ProblemNoted DateDiagnosed DateResolved DateLeg ulcer, left, limited to breakdown of skin/07/2025 Assessment & Plan (05/27/2024 3:17 PM EDT): Developed wound and treat with augmentin. Refer to wound care. COPD (chronic obstructive pulmonary disease) Encounters DateTypeDepartmentCare DmcdBynkitlyupu13/23/2025 11:15 AM EDTOffice Visit [facility] [address] [place] [id number] Jr. Jimenez Palmer, DO Pain and swelling of left knee (Primary Dx); Primary osteoarthritis of left knee07/28/2025amboo flowsheet [facility] [address] [place] [address] Jr. Jimenez Palmer, DO 07/28/2025Travelfrom Last 3 Months Family History Medical HistoryRelationNameCommentsCancerFatherRelationNameStatusCommentsFather DeceasedMotherDeceased Social History Tobacco UseTypesPacks/DayYears UsedDateSmoking Tobacco: [id number] - 1990Smokeless Tobacco: Never Tobacco Cessation:Counseling Given: Not Answered Humiliation, Afraid, Rape, and Kick questionnaireAnswerDate RecordedWithin the last year, have you been afraid of your partner or ex-partner?No11/19/2023Within the last year, have you been humiliated or emotionally abused in other ways by your partner or ex-partner?No11/19/2023Within the last year, have you been kicked, hit, slapped, or otherwise physically hurt by your partner or ex-partner?No11/19/2023Within the last year, have you been raped or forced to have any kind of sexual activity by your partner or ex-partner?No11/19/2023 Social Connection and Isolation PanelAnswerDate RecordedIn a typical week, how many times do you talk on the phone with family, friends, or neighbors?More than three times a week11/19/2023How often do you get together with friends or relatives?Once a week11/19/2023How often do you attend spiritism or spiritism services?More than 4 times per year11/19/2023o you belong to any clubs or organizations such as spiritism groups, unions, fraternal or athletic groups, or school groups?Yes11/19/2023How often do you attend meetings of the clubs or organizations you belong to?More than 4 times per year11/19/2023re you , , , , never , or living with a partner? 11/19/2023UDIT-CAnswerDate RecordedQ1: How often do you have a drink containing alcohol?Monthly or less11/19/2023Q2: How many drinks containing alcohol do you have on a typical day when you are drinking?1 or Q3: How often do you have six or more drinks on one occasion?Never11/19/2023Overall Financial Resource Strain (CARDIA)AnswerDate RecordedHow hard is it for you to pay for the very basics like food, housing, medical care, and heating?Not hard at all 11/19/2023HQ-2AnswerDate RecordedPatient Health Questionnaire-2 Score1 04/13/2025[facility] [place] [facility] - Occupational Stress QuestionnaireAnswerDate RecordedDo you feel stress - tense, restless, nervous, or anxious, or unable to sleep at night because yourmind is troubled all the time - these days?Only a vewtbb7911/19/2023Exercise Vital SignAnswerDate Recorded On average, how many days per week do you engage in moderate to strenuous exercise (like a brisk walk)?0 days11/19/2023On average, how many minutes do you engage in exercise at this level?0 min11/19/2023Hunger Vital SignAnswerDate RecordedWithin the past 12 months, you worried that your food would run out before you got the money to buymore.Never true11/19/2023Within the past 12 months, the food you bought just didn't last and you didn't have money to get more.Never true11/19/2023RAPARE - TransportationAnswerDate RecordedIn the past 12 months, has lack of transportation kept you from medical appointments or from getting medications?No11/19/2023In the past 12 months, has lack of transportation kept you from meetings, work, or from getting things needed for daily living?No11/19/2023Housing Stability Vital SignAnswerDate RecordedIn the last 12 months, was there a time when you were not able to pay the mortgage or rent on time?No11/19/2023In the last 12 months, how many places have you lived?1 11/19/2023In the last 12 months, was there a time when you did not have a steady place to sleep or slept in ashelter (including now)?No11/19/2023Sex and Gender InformationValueDate RecordedSex Assigned at BirthNot on fileLegal SexMale 01/17/2023 7:30 PM EDTGender IdentityNot on fileSexual OrientationNot on file Last Filed Vital Signs Vital SignReadingTime TakenCommentsBlood Cpmvtzvt388/62004/13/2025 2:11 PM EDT Hqgyq4055 2:11 PM IVCDgawvavjpkm20.4 ??C (97.5 ??F)04/13/2025 2:11 PM EDTRespiratory Xwad833404/13/2025 2:11 PM EDTOxygen Qlrhgxwbfc09%04/13/2025 2:11 PM EDTInhaled Oxygen Concentration--Hnrjgc081 kg (387 lb)04/13/2025 2:11 PM EDT Oyagkk038.3 cm (5' 11 )04/13/2025 2:11 PM EDTBody Mass Index53.98004/13/2025 2:11 PM EDT Plan of Treatment DateTypeDepartmentCare Team (Latest Contact Info)Oxnlbefjkyk77/31/2026 11:15 AM EDTOffice Visit [facility] [address] [place] [address] Jr. Jimenez Palmer, DO [address] [facility] [address] [place] [address] Health MaintenanceDue DateLast DoneCommentsPneumococcal Vaccine: 65+ Years (2 of 2 - PCV)COVID-19 Vaccine (2024- season)2025 10/19/2021, 01/11/2021, 12/14/2020Influenza Vaccine (#1)5112/16/2023, 09/13/2023, 10/01/2022, Additional history exists Procedures Procedure NamePriorityDate/TimeAssociated DiagnosisCommentsPR ARTHROCENTESIS ASPIR&/INJ MAJOR JT/BURSA W/O GDMdywcok13/23/2025 11:41 AM EDT Primary osteoarthritis of left knee from Last 3 Months Results * CA ARTHROCENTESIS ASPIR&/INJ MAJOR JT/BURSA W/O US (07/28/2025 11:41 AM EDT) Jr. Jimenez Talbot, - 07/28/2025 11:41 AM EDT Jr. Jimenez Palmer, 08/03/2025 7:42 AM L Inj/Asp: L knee on 07/28/2025 11:41 AM Indications: pain Details: 21 G needle, anterolateral approach Medications: 30 mg cross-linked hyaluronate 30 MG/3ML Outcome: tolerated well, no immediate complications Procedure, treatment alternatives, risks and benefits explained, specific risks discussed. Consent was given by the patient. Authorizing ProviderResult TypeResult StatusJr. Jimenez Palmer DOIN CLINIC/BEDSIDE ORDERABLESFinal Result from Last [address] [place] [id number] Care Teams Team MemberRelationshipSpecialtyStart DateEnd Date Jorge Ortez MD [facility]07/28/25
--- OUTSIDE RECORDS SUMMARY | 2025-10-21 13:28 | XMS_ITS | Clinical Summary ---
Author Organization [facility] Address [address] [place] [address] Phone Care Team Providers Care Bowling Alley Mechanic Name Role Phone Jorge Ortez MD Primary Care Provider + Allergies No known active allergies Medications MedicationSigDispense QuantityRefillsLast FilledStart DateEnd DateStatus furosemide (Lasix) 40 mg tablet Take 1 tablet (40 mg) by mouth once daily.Active levothyroxine (Synthroid) 150 mcg tablet Take 1 tablet (150 mcg) by mouth once daily.Active traMADol (Ultram) 50 mg tablet Take 2 tablets (100 mg) by mouth 2 times a day.Active pregabalin (Lyrica) 75 mg capsule Take 1 capsule (75 mg) by mouth 2 times a day.Active spironolactone (Aldactone) 25 mg tablet Take 1 tablet (25 mg) by mouth once daily.Active albuterol 90 mcg/actuation inhaler Inhale 2 puffs every 4 hours if needed for wheezing.Active Active Problems ProblemNoted DateDiagnosed DateEssential yigsliyhzpqo08/14/2024MI 50.0-59.9, adult01/17/2024Former dpiibq8201/17/2024hronic kidney yuwyigk7211/29/2023VT (deep venous thrombosis)11/29/2023History of COVID-19011/29/2023ulmonary embolism 11/29/20230124Iqqsx29/25/2024 Immunizations ImmunizationAdministration DatesNext DueInfluenza, seasonal, injectable 07/06/2021Moderna SARS-CoV-2 Agmyqexwwkr33/09/2021fizer Purple Cap SARS-CoV-2 10/19/2021neumococcal polysaccharide vaccine, 23-valent, age 2 years and older (PNEUMOVAX 23)08/05/2015 Family History Medical HistoryRelationNameCommentsCancerFatherRelationNameStatusCommentsFather Social History Tobacco UseTypesPacks/DayYears UsedDateSmoking Tobacco: FormerCigarettes Smokeless Tobacco: NeverAlcohol UseStandard Drinks/WeekCommentsNever0 (1 standard drink = 0.6 oz pure alcohol)Sex and Gender InformationValueDate RecordedSex Assigned at BirthNot on fileLegal TdvErau06/26/2022 5:22 PM EST Gender IdentityNot on fileSexual OrientationNot on file Last Filed Vital Signs Vital SignReadingTime TakenCommentsBlood Psvwynkj140/8601/17/2024 11:49 AM EDT Ehule012001/17/2024 11:49 AM EDTTemperature--Respiratory Rate--Oxygen Saturation-- Inhaled Oxygen Concentration--Vajyfl267 kg (368 lb)01/17/2024 11:49 AM EDTHeight 180.3 cm (5' 11 )01/17/2024 11:49 AM EDTBody Mass Index51.33001/17/2024 11:49 AM EDT Plan of Treatment Health MaintenanceDue DateLast DoneCommentsCreatinine Level1946Lipid Panel 1946Medicare Annual Wellness Visit (AWV)1946Potassium Level 1946TSH Level1946Diabetes Nltkqeqxd74/24/1964Hepatitis C Screening 1964CKD: Urine Protein Xfuvnlcvt58/24/1965DTaP/Tdap/Td Vaccines (1 - Tdap) 1968Zoster Vaccines (1 of 2)1996Pneumococcal Vaccine (2 of 2 - PCV) RSV High Risk: (Elderly (60+) or Population) (1 - 1-dose 75+ series)10/28/20219105Haimxhdglhsihl32/18/202308/Influenza Vaccine (#1)511/07/2023, 10/01/2022, 07/06/2021OVID-19 Vaccine (4 - season)/, 01/11/2021, 12/14/2020HIB VaccinesAged OutNo longer eligible based on patient's age to complete this topicHPV VaccinesAged OutNo longer eligible based on patient's age to complete this topicHepatitis A VaccinesAged OutNo longer eligible based on patient's age to complete this topic Hepatitis B VaccinesAged OutNo longer eligible based on patient's age to complete this topicIPV VaccinesAged OutNo longer eligible based on patient's age to complete this topicMeningococcal VaccineAged OutNo longer eligible based on patient's age to complete this topicRotavirus VaccinesAged OutNo longer eligible based on patient's age to complete this topic Procedures Procedure NamePriorityDate/TimeAssociated DiagnosisCommentsECHOCARDIOGRAM 06/22/2022 from Last 3 Months or Most Recently Relevant to Health Maintenance Results * ECHOCARDIOGRAM (06/22/2022) Narrative 06/22/2022 Ordered by an unspecified provider. Authorizing ProviderResult TypeResult StatusOnbase ConversionCV ECHO PROCEDURES Final Result from Last 3 Months or Most Recently Relevant to Health Maintenance Insurance Care Teams Team MemberRelationshipSpecialtyStart DateEnd Date Jorge Ortez MD [address] [place] [address] [facility] - [facility]01/17/24
--- NOTE | 2025-10-21 13:53 | PM.CN ---
Consult Note: HPI Data of Consult Patient: known to practice within the last 3 years Consult date: 10/21/25 Requesting Physician: Althea Haney NP Primary Care Provider: Jorge Ortez MD Consult Narrative Reason for consult: low back pain Narrative: Eleuterio Cabral a pleasant 79 year old male presents for evaluation and management of chronic pain in low back pain. Today rating pain 3-4/10 aching in low back, worse with weight bearing, standing, walking, activity. Patient has been doing well on tramadol and lyrica, without side effects. since last visit PCP decreased lyrica 75mg once daily and he is utilizing tramadol 50mg daily-twice daily as needed for moderate to severe pain. typically takes tramadol 50mg once in the AM with >50% improvement greater than 6 hours, does utilize BID PRN dose as needed if pain persists in the evening/HS. cc:: CC: Alhtea Haney NP Review of Systems ROS Musculoskeletal Reports: back pain and joint pain Meds Home Medications and Allergies Home Medications ?Medication ?Instructions ?Recorded ?Confirmed ?Type furosemide 40 mg tablet 40 mg PO DAILY 05/03/23 05/03/23 History levothyroxine 150 mcg capsule 150 mcg PO DAILY 05/03/23 05/03/23 History pregabalin 75 mg capsule (Lyrica) 75 mg PO BID 05/03/23 05/03/23 History rivaroxaban 20 mg tablet (Xarelto) 20 mg PO DAILY 05/03/23 05/03/23 History spironolactone 25 mg tablet 25 mg PO BID 05/03/23 05/03/23 History tramadol 50 mg tablet 50 mg PO BID PRN pain #60 tabs 04/16/25 Rx tramadol 50 mg tablet 50 mg PO BID PRN pain #60 tabs 05/25/25 Rx tramadol 50 mg tablet 50 mg PO BID PRN pain #60 tabs 07/07/25 Rx tramadol 50 mg tablet 50 mg PO BID PRN pain #60 tabs 09/14/25 Rx Allergies Allergy/AdvReac Type Severity Reaction Status Date / Time No Known Drug Allergies Allergy Verified 05/03/23 15:29 Exam Constitutional Documenting provider has reviewed patient's vital signs: yes Common normals: no apparent distress, oriented x3 and alert General appearance: cooperative Nutritional appearance: obese HENMT Common normals: normocephalic, hearing grossly normal bilaterally and moist oral mucous membranes Head and scalp: normocephalic Eye Common normals: PERRL Pupil: PERRL Neck & C-Spine Common normals: full ROM General: normal visual inspection Chest Common normals: inspection of chest normal Respiratory Common normals: normal respiratory effort, no retractions and no use of accessory muscles Back & Pelvis Lumbar spine/lower back: pain with ROM, lumbar spinal tenderness and straight leg raise positive right Other: strength 4/5 in BLE decreased sensation right L5/S1 Extremity Common normals: normal to inspection Neuro Common normals: oriented x3 Sensorium/orientation: alert Gait (neuro): antalgic and assistive device used walker Motor exam: strength 5/5 throughout and no movement abnormalities noted Psych Common normals: mental status grossly normal, thought process normal, cooperative, affect normal, speech normal and activity/motor behavior normal Speech: normal speech Thought process: normal thought process Results Additional Findings Additional findings: If on a controlled substance or opioids, I have checked an [place] report on this patient and there are no aberrancies noted in the prescribing history.??If on a controlled substance or opioid a drug screen was completed and reviewed within the last year, and if there has not been a drug screen completed we ordered one today to monitor higher risk, state monitored pain medication use. As part of providing excellent, safe, comprehensive care, the following was completed at our patient's visit: 1. A medication reconciliation and review to ensure accurate knowledge of current/active medications, including asking our patients to inform us about any [id number] medications or herbal remedies/nutritional supplements/alternative remedies. 2. A review to specifically ensure our patients have had annual screening for screening for depression, screening for tobacco use, and screening for unhealthy alcohol use. For concerning screenings had a discussion with the patient, provided patient education, and recommended follow-up with primary care provider when appropriate. If patient noted with a risk of falling, they received education on strength, gait, and balance training to prevent future risk of falling. Portions of this note may have been carried over from the previous visit and updated as appropriate. Please note this office utilizes paper charting in addition to the electronic medical record. A list of current medications, vitals, and PMH is available there as the clinical staff outside of myself do not have access to [employer] charting during the clinic day operations. As part of providing quality comprehensive care the current medications, vitals, and PMH were reviewed in the paper chart. Assessment and Plan Assessment and Plan (1) Lumbar spondylosis: (2) Lumbar stenosis: (3) Encounter for long-term opiate analgesic use: Assessment and Plan: I feel these medications are improving the patient's quality of life and allow them to tolerate activities of daily living as well as participate in recreational activity.? The patient does not report intolerable side effects. The patient is NOT opioid naive and non-pharmacologic and non-opioid treatment has failed to significantly relieve the patient's pain and improve functionality. The patient has a diagnosis that is related to a somatic or visceral pain etiology. ? ?? I reviewed with the patient the potential risks and side effects with the use of? opioid medications including but not limited to respiratory depression,? sedation, and even . I verified the patient has access to naloxone should? these effects occur. I advised the patient to avoid the use of any other? sedation substances including alcohol, THC, and benzodiazepines while? taking opioid medications due to the risk of compounding side effects and? detrimental outcomes. I reviewed the [employer]NA[employer], pain treatment agreement, urine? drug screen, and opioid start talking forms. The patient was advised to let? their family know they had Naloxone in case they would need to administer? the medication.? ?? A drug screen was completed within the last year, and no aberrancies were noted regarding their use of controlled substances. The patient understands they are subject to the terms and conditions of the pain contract that they have signed. ? ?? I have checked an [place]AR[place] report on this patient today and there are no aberrancies noted in the prescribing history.? (4) Obesity: Assessment and Plan: The patient was counseled that proper dietary changes and consistent participation in a home exercise plan can lead to weight loss. Weight loss can help to improve functionality in patients with chronic pain.? Plan continue tramadol 50mg daily-bid prn moderate to severe pain 45 tabs to last 30 days continue PRN tylenol continues to have functional improvement and pain relief as a result of injection therapy and medication management, declining additional workup continue pregabalin 75mg once daily through PCP f/u 3 months, sooner if needed
== END 2025-10-21 13:26 | disposition home or self-care (01) ==
LOC: PM 13:25
PROVIDERS: PCP Family Medicine; Visit Provider Nurse Practitioner
DX: M47.816 Spondylosis without myelopathy or radiculopathy, lumbar region (principal); M48.062 Spinal stenosis, lumbar region with neurogenic claudication; Z79.891 Long term (current) use of opiate analgesic; E66.9 Obesity, unspecified
CPT/HCPCS: G0463